=== PATIENT | female | born 1940 | race Caucasian/White ===

== ENCOUNTER 2023-04-12 11:38 | Outpatient (REF) | payer MEDICARE, SELFPAY ==
[2023-04-12 10:51] LABS: Basophils Percent Auto 0.6 % (0.2-2.0); Eosinophils Absolute Auto 0.2 10^3/uL (0.0-0.7); Eosinophils Percent Auto 2.1 % (0.9-7.0); Hematocrit 45.5 % (36.0-48.0); Hemoglobin 14.9 g/dL (12.0-16.0); Immature Granulocytes Abs Auto 0.02 10^3/uL (0.00-0.03); Immature Granulocytes Pct Auto 0.3 % (0.0-0.5); Lymphocytes Absolute Auto 1.9 10^3/uL (1.2-3.8); Lymphocytes Percent Auto 27.2 % (20.5-60.0); Mean Corpuscular HGB Conc 32.7 g/dL (29.9-35.2); Mean Corpuscular Hemoglobin 29.8 pg (26.7-34.0); Mean Platelet Volume 11.3 fL (9.5-13.5); Monocytes Absolute Auto 0.5 10^3/uL (0.3-0.8); Monocytes Percent Auto 6.6 % (1.7-12.0); Neutrophils Absolute Auto 4.4 10^3/uL (1.4-6.5); Neutrophils Percent Auto 63.2 % (43.0-75.0); Platelet Count 184 10^3/uL (150-450); Red Cell Distribution Width 14.1 % (11.0-15.0)
[2023-04-12 11:19] LABS: Alanine Aminotransferase 14 U/L (14-59); Albumin Globulin Ratio 1.1; Albumin Level 3.6 g/dL (3.4-5.0); Alkaline Phosphatase 76 U/L (46-116); Anion Gap 10.3; Aspartate Amino Transferase 14 U/L (15-37); BUN Creatinine Ratio 26.2; Bilirubin Total 0.4 mg/dL (0.2-1.0); Calcium 9.4 mg/dL (8.5-10.1); Carbon Dioxide 27.6 mmol/L (21.0-32.0); Chloride 106 mmol/L (98-107); Chol HDL Ratio 2.6; Cholesterol 217 mg/dL (<=200); Estimated GFR (African America 59 (>=60); Estimated GFR (Non-African Ame 49 (>=60); Globulin 3.3 g/dL; Glucose 96 mg/dL (74-106); HDL Cholesterol 82 mg/dL (40-60); Potassium 3.9 mmol/L (3.5-5.1); Sodium 140 mmol/L (136-145); Thyroid Stimulating Hormone 1.895 uIU/mL (0.358-3.740); Total Protein 6.9 g/dL (6.4-8.2); Triglycerides 81 mg/dL (<=150); VLDL CHOLESTEROL 16.2 mg/dL
[2023-04-12 11:25] LABS: Free T4 0.96 ng/dL (0.76-1.46)
== END 2023-04-12 11:39 | disposition home or self-care (01) ==
LOC: LAB 11:38
PROVIDERS: PCP Internal Medicine; Visit Provider Internal Medicine
DX: I10 Essential (primary) hypertension (principal); E78.5 Hyperlipidemia, unspecified; E03.9 Hypothyroidism, unspecified
CPT/HCPCS: 36415; 80053; 80061; 84439; 84443; 85025

== ENCOUNTER 2023-10-04 00:33 | Outpatient (REF) | payer MEDICARE, SELFPAY ==
[2023-10-04 08:37] LABS: Ammonia <10 umol/L (11-32)
[2023-10-04 08:41] LABS: Erythrocyte Sedimentation Rate 68 mm/hr (<=30)
[2023-10-04 11:07] LABS: Alanine Aminotransferase 21 U/L (14-59); Albumin Globulin Ratio 0.8; Albumin Level 2.9 g/dL (3.4-5.0); Alkaline Phosphatase 73 U/L (46-116); Aspartate Amino Transferase 14 U/L (15-37); Bilirubin Direct 0.1 mg/dL (0.0-0.2); Bilirubin Total 0.2 mg/dL (0.2-1.0); Globulin 3.6 g/dL; Thyroid Stimulating Hormone 1.389 uIU/mL (0.358-3.740); Total Protein 6.5 g/dL (6.4-8.2)
[2023-10-04 11:08] LABS: C Reactive Protein 1.58 mg/dL (<=0.50)
[2023-10-04 11:56] LABS: Free T4 0.92 ng/dL (0.76-1.46)
[2023-10-05 08:13] LABS: Homocyst(e)ine 15.9 umol/L (0.0-21.3)
[2023-10-05 09:12] LABS: Rapid Plasma Reagin, Quant Non Reactive titer (NonRea<1:1)
[2023-10-05 12:08] LABS: Lyme Total Antibody CIA Negative (Negative)
[2023-10-09 07:09] LABS: Methylmalonic Acid, Serum 259 nmol/L (0-378)
== END 2023-10-04 00:34 | disposition home or self-care (01) ==
LOC: LAB 00:33
PROVIDERS: PCP Internal Medicine; Visit Provider Psychiatry & Neurology Neurology
DX: R41.3 Other amnesia (principal); F03.90 Unspecified dementia, unspecified severity, without behavioral disturbance, psychotic disturbance, mood disturbance, and anxiety
CPT/HCPCS: 36415; 80076; 82140; 82607; 82746; 83090; 83921; 84439; 84443; 85652; 86140; 86592; 86618

== ENCOUNTER 2024-01-29 09:45 | Outpatient (REF) | payer MEDICARE, MEDICAID, SELFPAY ==
--- OUTSIDE RECORDS SUMMARY | 2024-01-29 10:00 | XMS_ITS | CCD ---
Author Organization [facility] Care Team Providers Care Administrative Director Name Role Phone PHYSICIAN, DEFAULT Unavailable Unavailable PHYSICIAN, DEFAULT Unavailable Unavailable KALI MAHARAJ Unavailable Unavailable PROVIDER, UNKNOWN Attending Unavailable PROVIDER, UNKNOWN Admitting Unavailable LULU FRIEDMAN Attending Unavailable NEL, DR MARTINEZ Primary Care Unavailable LULU FRIEDMAN Admitting Unavailable LULU FRIEDMAN Attending Unavailable NEL, DR MARTINEZ Primary Care Unavailable LULU FRIEDMAN Admitting Unavailable NADERER, DR ZACH Albarran Consulting Unavailable FRANCIACHKATT, DAVID GUTIÉRREZ Consulting Unavailable MICHELLE, DR BENNETT Consulting Unavailable LULU FRIEDMAN Consulting Unavailable COTY, YAQUELIN Consulting Unavailable NEL, DR MARTINEZ Primary Care Unavailable LULU FRIEDMAN Admitting Unavailable LULU FRIEDMAN Attending Unavailable SURAJ, DR SANTANA Attending Unavailable SURAJ, DR SANTANA Admitting Unavailable BEJ, YULIA Attending Unavailable BEJ, YULIA Admitting Unavailable NEL, DR MARTINEZ Primary Care Unavailable BEJ, YULIA Consulting Unavailable NEL, DR MARTINEZ Primary Care Unavailable HEMMER, DR PILY Rubalcava Attending Unavailable ZIEBER, DR OMAR Davison Consulting Unavailable HEMMER, DR PILY Rubalcava Admitting Unavailable HEMMER, DR PILY Rubalcava Consulting Unavailable NEL, DR MARTINEZ Primary Care Unavailable NEL, DR MARTINEZ Attending Unavailable NEL, DR MARTINEZ Admitting Unavailable Jhonatan Oakes Unavailable DO Edward Bernstein Emergency Provider [phone] DYLON Maharaj Primary Care Provider [phone] MD Dee Kenney Admit Provider MD Dee Kenney Attending Provider JUAN CARLOS Jenkins Other Provider UnavailJUAN CARLOS Silver Other Provider Unavailable MD Jhonatan Oakes Other Provider [phone] DEEPA Robins Other Provider MD Shelby Unger Other Provider MD Sergio Escudero Other Provider MD Abdulaziz Alvarez Attending Provider MD Abdulaziz Alvarez Attending Provider [phone] Sergio Escudero Unavailable [phone] Unavailable Unavailable Alvarez, Abdulaziz Attending Unavailable Maharaj II, Dr. Kali Murdock Primary Care Renee vailable Alvarez, Cintron Referring Unavailable Maharaj II, Dr. Kali Murdock Primary Care Renee vailable Alvarez, Cintron Attending Unavailable Alvarez, Cintron Referring Unavailable Alvarez, Abdulaziz Attending Unavailable Maharaj II, Dr. Kali Murdock Primary Care Renee vailable Alvarez, Cintron Attending Unavailable Alvarez, Abdulaziz Attending Unavailable Alvarez, Abdulaziz Attending Unavailable Raysa Robins Unavailable DYLON Maharaj Primary Care Provider MD Sergio Escudero Attending Provider DYLON Maharaj Primary Care Provider [phone] DEEPA Robins Attending Provider Raysa Robins Admitting Unavailable Raysa Robins Attending Unavailable Kali Maharaj Primary Care Unavailable Kali Maharaj Primary Care Unavailable Sergio Escudero Admitting UnavailSergio Estrada Attending UnavailKali Alvares MD Unavailable [phone] Kali Maharaj MD Primary Care Provider Neville DIRECTOR CONSUMER, Sarah Unavailable Unavailable Neville DIRECTOR CONSUMER, Sarah Unavailable YULIA MCCRAY Attending Unavailable KALI MAHARAJ Attending Unavailable ISMAEL AQUINO Attending Unavailable YULIA MCCRAY Attending Unavailable Allergies Allergy Classification Reported Allergen(s) Allergy Type Date of Onset Reaction(s) Facility (1 source) Chocolate Drug allergy (disorder) 02-21-2012 [facility] Rep[facility] (1 source) Chocolate Drug allergy (disorder) 02-01-2021 [facility] Repository (1 source) Chocolate Drug allergy (disorder) 05-28-2021 [facility] Repository Medications Current Medications Medication Drug Class(es) Dates Sig (Normalized) Sig (Original) amLODIPine 10 mg oral tablet (15 sources) Dihydropyridine Calcium Channel Kelly Start: 2 take 10 mg by mouth once daily Amlodipine Active 10 MG PO Daily August 14, 2022 12:00am aspirin 81 mg delayed release oral tablet (16 sources) Platelet Aggregation Inhibitor, Nonsteroidal Anti-inflammatory Drug Start: 1 Aspirin (Gregory Low Dose Aspirin) 81 mg tablet,delayed release (DR/EC) Active 81 MG PO Daily May 29, 2021 11:00pm atorvastatin 80 mg oral tablet (4 sources) HMG-CoA Reductase Inhibitor Start: 1 take 80 mg by mouth once daily at bedtime Atorvastatin Active 80 MG PO Daily at bedtime May 27, 2021 11:00pm Calcium Carbonate / Vitamin D (3 sources) Calcium Carbonate-Vitamin D (OYSTER-OPHELIA 500 + D PO) Take by mouth 2 (two) times a day. 0 Active Centrum Silver - (3 sources) Centrum Silver - as directed Orally Active hydrALAZINE hydrochloride 25 mg oral tablet (15 sources) Arteriolar Vasodilator Start: 2 take 1 tablet by mouth three times daily at mealtime hydrALAZINE (Apresoline) 25 MG tablet Indications: Essential hypertension (CMS/HCC) TAKE 1 TABLET BY MOUTH THREE TIMES A DAY WITH FOOD FOR 90 DAYS 270 tablet 1 03/26/2023 Active hydroCHLOROthiazide 12.5 mg / lisinopril 20 mg oral tablet (3 sources) Thiazide Diuretic, Angiotensin Converting Enzyme Inhibitor Start: 3 take 1 tablet by mouth in the morning lisinopril-hydroC HLOROthiazide 20-12.5 MG tablet Indications: Essential hypertension (CMS/HCC) Take 1 tablet by mouth in the morning and 1 tablet before bedtime. 200 tablet 3 02/25/2023 Active levothyroxine sodium 0.075 mg oral tablet (17 sources) l-Thyroxine Start: take 75 ug by mouth once daily Levothyroxine Active 75 MCG PO Daily at 629May 27, 2021 11:00pm take 1 tablet by francesca th once daily in the morning Levothyroxine Sodium 75 MCG 1 tablet in the morning on an empty stomach Orally Once a day Active Levothyroxine So dium Active lisinopril 20 mg oral tablet (14 sources) Angiotensin Converting Enzyme Inhibitor Start: 05-30-2021 take 20 mg by mouth twice daily Lisinopril Active 20 MG PO Twice daily 60 May 29, 2021 11:00pm Lisinopril Activ e Multiple Vitamins-Minerals (Centrum Silver 50+Women) tablet (3 sources) Start: 04-03-2011 take 1 tablet by mouth once daily Multiple Vitamins-Minerals (Centrum Silver 50+Women) tablet take 1 by Oral route every day Oral 0 04/03/2011 Active 24 hr nicotine 0.875 mg/hr transdermal system (4 sources) Cholinergic Nicotinic Agonist Start: 05-30-2021 Nicotine Active 1 EACH TRANSDERML Daily May 29, 2021 11:00pm pantoprazole 40 mg delayed release oral tablet (17 sources) Proton Pump Inhibitor Start: 07-17-2022 take 1 tablet by mouth before mealtime pantoprazole (ProtoNix) 40 MG EC tablet Indications: Gastroesophageal reflux disease, unspecified whether esophagitis present Take 1 tablet (40 mg) by mouth in the morning. Take before meals. 100 tablet 4 03/26/2023 Active Pantoprazole Sod ium Active PARoxetine hydrochloride 20 mg oral tablet (10 sources) Serotonin Reuptake Inhibitor Start: 08-12-2023 End: 08-11-2024 take 1 tablet by mouth at bedtime PARoxetine (Paxil) 20 MG tablet Indications: Major depressive disorder with single episode, in full remission (CMS/HCC) Take 1 tablet (20 mg) by mouth at bedtime. 90 tablet 3 08/12/2023 08/11/2024 Active Start: 08-10-2022 take 40 mg by mouth once daily Paroxetine Hcl Active 40 MG PO Daily August 09, 2022 11:00pm Completed/Discontinued Medications Medication Drug Class(es) Dates Sig (Normalized) Sig (Original) alendronic acid 70 mg oral tablet (20 sources) Bisphosphonate Start: 08-10-2022 End: 08-14-2022 take 70 mg by mouth once daily Alendronate Discontinued 70 MG PO Daily August 09, 2022 11:00pm August 14, 2022 1:29pm Start: 07-17-2022 take 70 mg by mouth every week Alendronate Active 70 MG PO Q7D August 14, 2022 1:08pm Alendronate Sodi um Active cephalexin 500 mg oral capsule (4 sources) Cephalosporin Antibacterial Start: 05-30-2021 End: 08-14-2022 take 500 mg by mouth twice daily Cephalexin Discontinued 500 MG PO Twice daily 03 09May 29, 2021 11:00pm August 14, 2022 1:29pm cloNIDine hydrochloride 0.3 mg oral tablet (8 sources) Central alpha-2 Adrenergic Agonist Start: 08-10-2022 End: 08-14-2022 take 0.3 mg by mouth once daily Clonidine Hcl Discontinued 0.3 MG PO Daily August 09, 2022 11:00pm August 14, 2022 1:29pm cloNIDine Active 24 hr dilTIAZem hydrochloride 360 mg extended release oral capsule (8 sources) Calcium Channel Kelly Start: 05-28-2021 End: 08-14-2022 take 1 capsule by mouth once daily, then take 1 capsule by mouth every twenty-four hours Diltiazem Hcl (Tiadylt Er) 360 mg capsule,extended release 24 hr Discontinued 360 MG PO Daily August 09, 2022 11:00pm August 14, 2022 1:29pm Multi Vitamin Daily Oral Tablet (6 sources) take 1 tablet by mouth once daily Multi Vitamin Daily Oral Tablet TAKE 1 TABLET DAILY. Quantity: 0 Refills: 0 Ordered: 21-Sep-2022 DO Active simvastatin 20 mg oral tablet (17 sources) HMG-CoA Reductase Inhibitor Start: 10-22-2022 take 1 tablet by mouth once daily Simvastatin 20 MG Oral Tablet TAKE 1 TABLET DAILY DIRECTED. Quantity: 90 Refills: 3 Ordered: 31-Oct-2022 Abdulaziz Alvarez MD Start : 22-Oct-2022 Active Start: 09-24-2022 take 1 tablet by francesca th at bedtime Simvastatin 40 MG Oral Tablet TAKE 1 TABLET AT BEDTIME. Quantity: 90 Refills: 3 Ordered: 24-Sep-2022 Abdulaziz Alvarez MD Start : 24-Sep-2022 Active Start: 08-10-2022 End: 08-14-2022 take 40 mg by mouth once daily Simvastatin Discontinue d 40 MG PO Daily August 09, 2022 11:00pm August 14, 2022 1:29pm take 1 tablet by francesca th every twenty-four hours Simvastatin 80 MG 1 tablet in the evening Orally Once a day Active Simvastatin Acti ve Problems Active Problems Problem Classification Problem Date Documented Date Episodic/Chronic Acute and unspecified renal failure (7 sources) Acute kidney failure, unspecified; Translations: [Injury of kidney] Onset: 02-09-2021 08-10-2022 Episodic Adjustment disorders (3 sources) Adjustment disorder with depressed mood; Translations: [Adjustment disorder with depressed mood] Onset: 04-08-2023 04-08-2023 Chronic Cardiac and circulatory congenital anomalies (3 sources) Congenital insufficiency of mitral valve; Translations: [Congenital mitral insufficiency] Onset: 07-11-2015 04-08-2023 Chronic Cardiac dysrhythmias (3 sources) Atrial fibrillation; Translations: [Unspecified atrial fibrillation] Onset: 01-13-2019 04-08-2023 Chronic Chronic obstructive pulmonary disease and bronchiectasis (3 sources) Chronic obstructive lung disease; Translations: [Chronic obstructive pulmonary disease, unspecified] Onset: 07-11-2015 04-08-2023 Chronic Congestive heart failure; nonhypertensive (3 sources) Diastolic heart failure; Translations: [Unspecified diastolic (congestive) heart failure] Onset: 07-11-2015 04-08-2023 Chronic Deficiency and other anemia (1 source) Other dietary vitamin B12 deficiency anemia; Translations: [OTH DIETARY VITAMIN B12 DEF ANEMIA] Onset: 08-29-2021 Episodic Delirium, dementia, and amnestic and other cognitive disorders (1 source) Unspecified dementia without behavioral disturbance; Translations: [UNS BERYL W/O BEHAVIORAL DIST] Onset: 08-29-2021 Chronic Disorders of lipid metabolism (13 sources) Hyperlipidemia, unspecified; Translations: [Hyperlipidemia] Onset: 07-11-2015 04-08-2023 Chronic Epilepsy; convulsions (4 sources) Epilepsy, unspecified, not intractable, without status epilepticus; Translations: [EPILEPSY UNS NOT INTRACT W/O SE] Onset: 2021 Chronic Esophageal disorders (4 sources) Gastro-esophageal reflux disease without esophagitis; Translations: [Gastroesophageal reflux disease] Onset: 07-11-2015 04-08-2023 Chronic Essential hypertension (15 sources) Hypertensive disorder; Translations: [Essential (primary) hypertension] Onset: 02-25-2023 05-30-2021 Chronic Heart valve disorders (3 sources) Tricuspid valve disorder; 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, unspecified] Onset: 07-11-2015 04-08-2023 Chronic Hypertension with complications and secondary hypertension (1 source) Hypertensive chronic kidney disease with stage 1 through stage 4 chronic kidney disease, or unspecified chronic kidney disease; Translations: [HTN CKD W/STAGE 1-4 CKD/UNS CKD] Onset: 02-09-2021 Chronic Immunizations and screening for infectious disease (1 source) Encounter for screening for infections with a predominantly sexual mode of transmission; Translations: [ENC SCREEN INFECTIONS SEXL TRANSMS] Onset: 08-29-2021 Episodic Late effects of cerebrovascular disease (6 sources) Ataxia as sequela of cerebrovascular accident; Translations: [Ataxia following cerebral infarction] Onset: 04-08-2023 04-08-2023 Chronic Menopausal disorders (7 sources) Other primary ovarian failure; Translations: [Decreased estrogen level] Onset: 10-20-2018 Chronic Mood disorders (3 sources) Major depression, single episode; Translations: [Major depressive disorder, single episode, unspecified] Onset: 01-14-2017 04-08-2023 Chronic Mycoses (4 sources) Onychomycosis due to dermatophyte ; Translations: [Tinea unguium] Onset: 01-12-2020 04-08-2023 Episodic Nutritional deficiencies (3 sources) Vitamin D deficiency; Translations: [Vitamin D deficiency, unspecified] Onset: 01-04-2016 04-08-2023 Chronic Nutritional deficiencies (1 source) Pyridoxine deficiency; Translations: [PYRIDOXINE DEFICIENCY] Onset: 08-29-2021 Episodic Occlusion or stenosis of precerebral arteries (20 sources) Bilateral stenosis of carotid arteries; Translations: [Occlusion and stenosis of bilateral carotid arteries] Onset: 04-08-2023 Chronic Osteoarthritis (6 sources) Bilateral osteoarthritis of knees; Translations: [Bilateral primary osteoarthritis of knee] Onset: 02-15-2021 04-08-2023 Chronic Other and ill-defined heart disease (3 sources) Heart disease; Translations: [Heart disease, unspecified] Onset: 07-11-2015 04-08-2023 Chronic Other circulatory disease (10 sources) Disorder of carotid artery; Translations: [Disorder of arteries and arterioles, unspecified] 08-11-2022 Chronic Other circulatory disease (2 sources) Disorder of arteries and arterioles, unspecified; Translations: [Unspecified disorders of arteries and arterioles] 08-10-2022 Chronic Other circulatory disease (6 sources) Carotid bruit; Translations: [Other symptoms involving cardiovascular system] Episodic Other connective tissue disease (1 source) Myalgia, unspecified site; Translations: [MYALGIA UNSPECIFIED SITE] Onset: 08-29-2021 Episodic Other connective tissue disease (1 source) Pain of toe of left foot; Translations: [Pain in left toe(s)] 11-12-2023 Episodic Other connective tissue disease (1 source) Pain of toe of right foot; Translations: [Pain in right toe(s)] 11-12-2023 Episodic Other diseases of veins and lymphatics (1 source) Vascular insufficiency; Translations: [Venous insufficiency (chronic) (peripheral)] 11-12-2023 Episodic Other hematologic conditions (3 sources) High troponin I level; Translations: [Other specified abnormalities of plasma proteins] 05-29-2021 Episodic Other hereditary and degenerative nervous system conditions (3 sources) Essential tremor; Translations: [Essential tremor] Onset: 11-27-2017 04-08-2023 Chronic Other nervous system disorders (1 source) Polyneuropathy, unspecified; Translations: [POLYNEUROPATHY UNSPECIFIED] Onset: 08-29-2021 Chronic Other nervous system disorders (1 source) Hereditary and idiopathic neuropathy, unspecified; Translations: [HEREDITARY IDIOPATH NEUROPATHY UNS] Onset: 08-29-2021 Chronic Other nervous system disorders (3 sources) Bilateral carpal tunnel syndrome; Translations: [Carpal tunnel syndrome, bilateral upper limbs] Onset: 01-01-2018 04-08-2023 Chronic Other nervous system disorders (3 sources) Chronic pain; Translations: [Other chronic pain] Onset: 10-28-2017 04-08-2023 Chronic Other nervous system disorders (3 sources) Polyneuropathy; Translations: [Polyneuropathy, unspecified] Onset: 02-25-2018 04-08-2023 Chronic Other nervous system disorders (3 sources) Disorder of the central nervous system; Translations: [Disorder of brain, unspecified] Onset: 04-08-2023 10-01-2023 Chronic Other nutritional; endocrine; and metabolic disorders (3 sources) Body mass index 30+ - obesity; Translations: [Obesity, unspecified] Onset: 01-12-2020 04-08-2023 Chronic Peripheral and visceral atherosclerosis (5 sources) Generalized atherosclerosis; Translations: [Peripheral vascular disease] Onset: 07-07-2015 04-08-2023 Chronic Residual codes; unclassified (1 source) Other amnesia; Translations: [OTHER AMNESIA] Onset: 08-29-2021 Episodic Residual codes; unclassified (4 sources) Altered mental status; Translations: [Altered mental status, unspecified] 05-28-2021 Episodic Residual codes; unclassified (2 sources) Tobacco use; Translations: [Tobacco use disorder] 08-10-2022 Episodic Residual codes; unclassified (6 sources) Body mass index 20-24 - normal; Translations: [Body Mass Index between 19-24, adult] Episodic Substance-related disorders (20 sources) Nicotine dependence, cigarettes, uncomplicated; Translations: [Smoker] Onset: 02-09-2021 05-28-2021 Chronic Comment on above: 1 pack per week; Syncope (12 sources) Syncope; Translations: [Syncope and collapse] 08-10-2022 Episodic Thyroid disorders (9 sources) Hypothyroidism; Translations: [Unspecified acquired hypothyroidism] Onset: 11-26-2016 04-08-2023 Chronic Unclassified (1 source) CHRN KIDNEY DISEASE STG 3 UNSP; Translations: [CHRN KIDNEY DISEASE STG 3 UNSP] Onset: 02-09-2021 Unclassified (1 source) CONTACT W/AND (SUSP) EXPOS COVID-19; Translations: [CONTACT W/AND (SUSP) EXPOS COVID-19] Onset: 02-09-2021 Unclassified (1 source) Occlusion and stenosis of bilateral carotid arteries; Translations: [Occlusion and stenosis of bilateral carotid arteries] Onset: 09-26-2023 Urinary tract infections (4 sources) Urinary tract infectious disease; Translations: [Urinary tract infection, site not specified] 05-28-2021 Episodic Past or Other Problems Problem Classification Problem Date Documented Date Episodic/Chronic Fluid and electrolyte disorders (4 sources) Dehydration; Translations: [DEHYDRATION] Onset: 02-01-2021 Episodic Malaise and fatigue (5 sources) Weakness; Translations: [WEAKNESS] Onset: 02-08-2021 Episodic Nonspecific chest pain (7 sources) Acute chest pain; Translations: [Chest pain, unspecified] Resolved: 09-21-2022 Episodic Other aftercare (1 source) senior living (current) use of aspirin; Translations: [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] Onset: 02-09-2021 Episodic Other aftercare (1 source) Other skilled nursing (current) drug therapy; Translations: [OTH INTERMEDIATE CURRENT DRUG THERAPY] Onset: 02-09-2021 Episodic Other connective tissue disease (4 sources) Repeated falls; Translations: [REPEATED FALLS] Onset: 02-08-2021 Episodic Other connective tissue disease (3 sources) Spasm of cervical paraspinous muscle; Translations: [Other muscle spasm] Onset: 04-08-2023 04-08-2023 Episodic Other connective tissue disease (3 sources) Spasm; Translations: [Cramp and spasm] Onset: 02-25-2018 04-08-2023 Episodic Other connective tissue disease (3 sources) Pain in limb; Translations: [Pain in unspecified limb] Onset: 01-12-2020 04-08-2023 Episodic Other diseases of veins and lymphatics (3 sources) Peripheral venous insufficiency; Translations: [Venous insufficiency (chronic) (peripheral)] Onset: 04-08-2023 04-08-2023 Episodic Other injuries and conditions due to external causes (1 source) History of falling; Translations: [HISTORY OF FALLING] Onset: 03-01-2021 Episodic Other injuries and conditions due to external causes (3 sources) At risk for falls ; Translations: [History of falling] Onset: 01-12-2020 04-08-2023 Episodic Other nervous system disorders (3 sources) Ataxia; Translations: [Ataxia, unspecified] Onset: 04-01-2018 04-08-2023 Episodic Other nervous system disorders (3 sources) Ataxic gait; Translations: [Ataxic gait] Onset: 02-15-2021 04-08-2023 Episodic Other nervous system disorders (3 sources) Impaired cognition; Translations: [Other symptoms and signs involving cognitive functions and awareness] Onset: 04-08-2023 04-08-2023 Episodic Other screening for suspected conditions (not mental disorders or infectious disease) (5 sources) Other specified abnormal findings of blood chemistry; Translations: [High troponin I level] Onset: 04-01-2018 09-18-2023 Episodic Residual codes; unclassified (7 sources) Tobacco user; Translations: [Tobacco use] Onset: 10-20-2018 08-11-2022 Episodic Residual codes; unclassified (3 sources) Amnesia; Translations: [Other amnesia] Onset: 04-08-2023 04-08-2023 Episodic Spondylosis; intervertebral disc disorders; other back problems (6 sources) Spasm of muscle of lower back; Translations: [Muscle spasm of back] Onset: 02-25-2018 04-08-2023 Episodic Results Test Name Value Interpretation Reference Range Facility US carotid doppler BIon 12- US carotid doppler BI [facility] [place] [address] Ultrasound Report Signed Patient: Carley Quintanilla MR#: [id number] : 1940 Acct:[id number] Age/Sex: 83 / F ADM Date: 09/26/23 Loc: [facility] Room: Type: [facility] Attending Dr: Raysa Robins [employer] Ordering Provider: Raysa Robins APRN Date of Service: 09/26/23 US/US carotid doppler BI: I65.23 Copies to: Raysa Robins APRN CAROTID DUPLEX INDICATION: Carotid surveillance study for known right asymptomatic carotid artery stenoses. PROCEDURE: Color-flow duplex scanning is used to interrogate the extracranial carotid arterial system, as well as both vertebral arteries. Both carotid bifurcations show mild to moderate heterogeneous plaque formation. The proximal right internal carotid artery shows a highest peak systolic velocity of 267 cm/s with an end-diastolic velocity of 39.9 cm/s . The mid internal carotid artery measures 208 cm/s peak systolic and 22.5 cm/s end diastolic. The distal segment measures 129 cm/s peak systolic with an end diastolic velocity of 19.9 cm/s . The velocities of the right common carotid artery are 84.5 cm/s peak systolic and 10.6 cm/s end-diastolic proximally and 92.7 cm/s peak systolic and 11.5 cm/s end diastolic distally. The peak systolic velocity ratio of the internal to the common carotid artery is 2.88. The right external carotid artery measures 326 cm/s peak systolic. The right vertebral artery is patent at 65.3 cm/s with antegrade flow. The proximal left internal carotid artery shows a highest peak systolic velocity of 85.7 cm/s with an end-diastolic velocity of 10.6 cm/s . The mid internal carotid artery measures 75.2 cm/s peak systolic and 12.5 cm/s end diastolic. The distal segment measures 77.1 cm/s peak systolic with an end diastolic velocity of 11.6 cm/s . The velocities of the left common carotid artery are 97.9 cm/s peak systolic and 13.9 cm/s end-diastolic proximally and 113 cm/s peak systolic and 10.5 cm/s end diastolic distally. The peak systolic velocity ratio of the internal to the common carotid artery is 0.76 . The left external carotid artery measures 136 cm/s peak systolic. The left vertebral artery is patent at 44.7 cm/s with antegrade flow. US/US carotid doppler BI IMPRESSION: MILD TO MODERATE PLAQUE FORMATION IS NOTED BILATERAL EXTRACRANIAL CAROTID ARTERIES. MODERATE STENOSIS OF 50-69% WAS FOUND IN THE RIGHT INTERNAL CAROTID ARTERY. The left carotid system is normal. Impression dictated by: Sergio Escudero MD09/26/2023 1:51 PM Dictation Location: [place] [address] Tech: Olimpia Corea Transcribed By: ADEEL 09/26/23 1351 Dictated By: Sergio Escudero MD 09/26/23 1350 Signed By: 09/26/23 1351 Normal [facility] US carotid doppler BIon 06- US carotid doppler BI [facility] [place] [address] Ultrasound Report Signed Patient: Carley Quintanilla MR#: [id number] : 1940 Acct:[id number] Age/Sex: 82 / F ADM Date: 03/20/23 Loc: [facility] Room: Type: [facility] Attending Dr: Sergio Escudero MD Ordering Provider: Sergio Escudero MD Date of Service: 03/20/23 US/US carotid doppler BI: I65.23 Copies to: Sergio Escudero MD CAROTID DUPLEX INDICATION: Known carotid occlusive disease PROCEDURE: Color-flow duplex scanning is used to interrogate the extracranial carotid arterial system, as well as both vertebral arteries. Both carotid bifurcations show mild to moderate heterogeneous plaque formation. The proximal right internal carotid artery shows a highest peak systolic velocity of 258 cm/s with an end-diastolic velocity of 29.5 cm/s . The mid internal carotid artery measures 234 cm/s peak systolic and 26 cm/s end diastolic. The distal segment measures 89.1 cm/s peak systolic with an end diastolic velocity of 16.5 cm/s . The velocities of the right common carotid artery are 77 cm/s peak systolic and 13 cm/s end-diastolic proximally and 77 cm/s peak systolic and 11.2 cm/s end diastolic distally. The peak systolic velocity ratio of the internal to the common carotid artery is 3.35. The right external carotid artery measures 284 cm/s peak systolic. The right vertebral artery is patent at 81.4 cm/s with antegrade flow. The proximal left internal carotid artery shows a highest peak systolic velocity of 113 cm/s with an end-diastolic velocity of 15.5 cm/s . The mid internal carotid artery measures 101 cm/s peak systolic and 20.3 cm/s end diastolic. The distal segment measures 92 cm/s peak systolic with an end diastolic velocity of 17.4 cm/s . The velocities of the left common carotid artery are 101 cm/s peak systolic and 13.6 cm/s end-diastolic proximally and 99.7 cm/s peak systolic and 15.5 cm/s end diastolic distally. The peak systolic velocity ratio of the internal to the common carotid artery is 1.12 . The left external carotid artery measures 189 cm/s peak systolic. The left vertebral artery is patent at 74.6 cm/s with antegrade flow. US/US carotid doppler BI IMPRESSION: Moderately severe calcified plaque formation is noted the right internal carotid artery origin. There is at least 50-69% stenosis. Complete interrogation of the area is impaired by the calcification and the stenosis may be more severe. Left internal carotid artery today shows less than 50% stenosis. Both vertebral arteries are patent with antegrade flow. Impression dictated by: Jhonatan Oakes M.D.03/22/2023 1:18 PM Dictation Location: [facility] Tech: Marcelle Minor Transcribed By: ADEEL 03/22/231317 Dictated By: Jhonatan Oakes MD 03/22/231316 Signed By: 03/22/231317 [facility] Office Visit (Cardiology)on 09-21-2022 Follow-up visit Diagnoses/Problems Assessed Essential hypertension, benign (401.1) (I10) Carotid artery disease (447.9) (I77.9) Hyperlipidemia (272.4) (E78.5) Hypothyroidism (244.9) (E03.9) Current smoker (305.1) (F17.200) 1 pack per week Syncope (780.2) (R55) Bruit of right carotid artery (785.9) (R09.89) Body mass index (BMI) of 24.0 to 24.9 in adult (V85.1) (Z68.24) Orders Carotid artery disease, Hyperlipidemia Renew: Aspirin EC 81 MG Oral Tablet Delayed Release; TAKE 1 TABLET DAILY SocHx: Current smoker You need to quit smoking.; Status:Complete - Retrospective Authorization; Done: [id number] You need to stop smoking. Though it is not easy, more than half of all adult smokers have quit. We encourage you to write down all the reasons you should quit smoking and set a quit date for yourself. Ask us how we can help. You may also call 6-107-UGCRNOW for free resources and assistance.; Status:Complete - Retrospective Authorization; Done: [id number] Tobacco Use Screening; Status:Complete; Done: [id number] Patient Instructions Please bring all medicines, vitamins, and herbal supplements with you when you come to the office. Prescriptions will not be filled unless you are compliant with your follow up appointments or have a follow up appointment scheduled as per instruction of your physician. Refills should be requested at the time of your visit. Follow up in 6 months Chief Complaint CARLEY QUINTANILLA is being seen for follow-up of a hospitalization for. 82-year-old white female who I saw in the hospital recently for syncope. It was believed that the syncope either caused by bradycardia or carotid disease. When she was seen by vascular surgery regarding the carotid stenosis that was felt to be above 70% they did not believe that it was the cause and did not want to intervene. The patient has had no recurrent syncope. 30-day event monitor which was completed last week and reviewed with the patient showed no arrhythmias. She continues to smoke something that I advised against given her carotid disease. She reports no orthopnea PND or palpitations. She came with her sister today. Patient is hypertensive and hyperlipidemic and hypothyroid on medical therapy. Assessment/recommendations : 1?recurrent syncope with no obvious cause. We believe bradycardia arrhythmias may have been a factor and therefore agent that control heart rate were eliminated. 30-day event monitor revealed no arrhythmias. No further cardiac actions needed. Echocardiogram August 2022 was normal 2?carotid disease confirmed by ultrasound asymptomatic. We will continue to advise patient to quit smoking, continue antiplatelet therapy, hypertension therapy and hyperlipidemia management. 3?hypertension, currently under control using amlodipine and hydralazine with lisinopril 4?hyperlipidemia on simvastatin. The dose has to be reduced down to 40 mg daily. 5?active tobacco abuse, encouraged the patient to quit smoking. Surgical History Problems History of Complete colonoscopy History of Foot surgery History of Tonsillectomy Past Medical History Problems History of Acute chest pain (786.50) (R07.9) Resolved Date: 21 Sep 2022 Current Meds Medication NameInstruction Alendronate Sodium 70 MG Oral TabletTAKE 1 TABLET WEEKLY 30 MINTUES PRIOR TO THE FIRST FOOD, BEVERAGE, OR MEDICINE OF THE DAY amLODIPine Besylate 10 MG Oral TabletTAKE 1 TABLET BY MOUTH EVERY DAY FOR 90 DAYS Aspirin EC 81 MG Oral Tablet Delayed ReleaseTAKE 1 TABLET DAILY. hydrALAZINE HCl - 25 MG Oral TabletTAKE 1 TABLET BY MOUTH THREE TIMES A DAY WITH FOOD FOR 90 DAYS Levothyroxine Sodium 75 MCG Oral TabletTAKE 1 TABLET EVERY DAY Lisinopril 20 MG Oral TabletTAKE 1 TABLET BY MOUTH TWICE A DAY Multi Vitamin Daily Oral TabletTAKE 1 TABLET DAILY. Pantoprazole Sodium 40 MG Oral Tablet Delayed ReleaseTAKE 1 TABLET BY MOUTH EVERY DAY Simvastatin 80 MG Oral TabletTAKE 1 TABLET Bedtime Allergies Medication No Known Drug Allergies Recorded By: Verito Larry; 09/21/2022 12:13:50 PM Social History Problems Consumes alcohol occasionally (V49.89) (Z78.9) Current smoker (305.1) (F17.200) 1 pack per week Daily caffeine consumption coffee 1 cup daily No illicit drug use Review of Systems Constitutional: not feeling tired. Cardiovascular: no intermittent leg claudication and as noted in HPI. Respiratory: no cough and no shortness of breath. Gastrointestinal: no change in bowel habits and no blood in stools. Integumentary: no skin rashes. Neurological: no seizures and no frequent falls. All other systems have been reviewed and are negative for complaint. Vitals Vital Signs Recorded: [id number] 12:15PM Heart Rate84, R Radial [id number], RUE Fofijdzwz96, RUE Height5 ft 6 in Qhgkhn942 lb BMI Elljwprafk17.05 kg/m2 BSA Calculated1.76 Tobacco Usea) Yes Patient encouraged to stop using tobacco productsYes PHQ-2 Patient Declined/Screening not indicatedYes (more content not included)... Normal [place] Tobacco Screening.on 022 Fall risk assessment a) No falls within the last year [facility] [employer] DO Work Phone: Tobacco use status CP a) Yes [facility] [employer] DO Work Phone: Tobacco Screening. Yes [facility] [employer] DO Work Phone: No Panel Informationon 09-14 [facility] [employer] DO Work Phone: Creatinine and Glomerular fi ltration rate.predicted panel (S/P/Bld)Ordered By: Dee Kenney on 08-12-2022 Creatinine [Mass/Vol] 1.16 mg/dL 0.44-1.03 [facility] Estimated glomerular filtrat ion rate (GFR) non- AmericanOrdered By: Dee Kenney on 08-12-2022 GFR/1.73 sq M.predicted among non-blacks MDRD (S/P/Bld) [Vol rate/Area] 45 mL/Min [facility] No Panel InformationOrdered By: Dee Kenney on 08-12-2022 Estimated GFR () 54 mL/Min [facility] Comment on above: GFR estimated refere nce range: According to KDOQI guidelines, <60 ml/min/1.73m2 is sufficient to diagnose a patient with chronic kidney disease. Pharmacy Creatinine Clearance (Chem 35.61 [facility] Serum or plasma anion gap de terminationOrdered By: Dee Kenney on 08-12-2022 Anion gap [Moles/Vol] 11.3 mmol/L 6.0-15.0 [facility] Serum or plasma calcium azalea urement (mass/volume)Ordered By: Dee Kenney on 08-12-2022 Calcium [Mass/Vol] 8.6 mg/dL 8.2-10.2 [facility] Serum or plasma chloride janet surement (moles/volume)Ordered By: Dee Kenney on 08-12-2022 Chloride [Moles/Vol] 110 mmol/L 95-114 [facility] Serum or plasma glucose azalea urement (mass/volume)Ordered By: Dee Kenney on 08-12-2022 Glucose [Mass/Vol] 95 mg/dL 70-100 [facility] Comment on above: ADA recommended refe rence rangeRandom Glucose Reference Range is dependent on time and content of last meal. Glucose of more than 200 mg/dL in a nonstressed, ambulatory subject supports the diagnosis of Diabetes Mellitus. Serum or plasma potassium me asurement (moles/volume)Ordered By: Dee Kenney on 08-12-2022 Potassium [Moles/Vol] 3.7 mmol/L 3.5-5.1 [facility] Serum or plasma sodium measu rement (moles/volume)Ordered By: Dee Kenney on 08-12-2022 Sodium [Moles/Vol] 141 mmol/L 136-146 [facility] Serum or plasma total carbon dioxide measurement (moles/volume)Ordered By: Dee Kenney on 08-12-2022 CO2 [Moles/Vol] 23.4 mmol/L 22.0-30.0 [facility] Serum or plasma urea nitroge n measurement (mass/volume)Ordered By: Dee Kenney on 08-12-2022 Urea nitrogen [Mass/Vol] 28 mg/dL 9-23 [facility] TSH DL <= 0.005 mIU/L QnOrde red By: Dee Kenney on 08-11-2022 TSH Qn 2.20 m[IU]/L 0.45-5.33 [facility] Basophils Auto (Bld) [#/Vol] Ordered By: Edward Bernstein on 08-10-2022 Basophils (Bld) [#/Vol] 0.1 10*3/uL 0.0-0.2 [facility] Basophils/100 WBC Auto (Bld) Ordered By: Edward Bernstein on 08-10-2022 Basophils/100 WBC (Bld) 0.5 % . [facility] Bilirubin Test strip Ql (U)O rdered By: Edward Bernstein on 08-10-2022 Bilirubin Ql (U) Negative Negative [facility] Body fluid albumin measureme nt (mass/volume)Ordered By: Edward Bernstein on 08-10-2022 Albumin (Body fld) [Mass/Vol] 3.3 g/dL 3.2-5.5 [facility] COVID CepheidOrdered By: Rima Bernstein on 08-10-2022 SARS-CoV-2 (COVID-19) Ab IA Ql Negative Negative [facility] Comment on above: This is a duplicate [employer] Xpert Xpress CoV-2/Flu/RSV Plus RNA by RT-PCR result to be used for statistical tracking purpose only. SARS-CoV-2 (COVID-19) RNA ALLISON+probe Ql (Unsp spec) [facility] Color Auto (U)Ordered By: Harjit Bernstein on 08-10-2022 Color (U) Yellow Yellow [facility] Eosinophils Auto (Bld) [#/Vo l]Ordered By: Edward Bernstein on 08-10-2022 Eosinophils (Bld) [#/Vol] 0.1 10*3/uL 0.0-0.45 [facility] Eosinophils/100 WBC Auto (Bl d)Ordered By: Edward Bernstein on 08-10-2022 Eosinophils/100 WBC (Bld) 0.7 % . [facility] Erythrocyte distribution wid th Auto (RBC) [Ratio]Ordered By: Edward Bernstein on 08-10-2022 Erythrocyte distribution width (RBC) [Ratio] 13.4 % 11.9-15.3 [facility] Globulin Calc (S) [Mass/Vol] Ordered By: Edward Bernstein on 08-10-2022 Globulin (S) [Mass/Vol] 2.7 g/dL [facility] Glucose Glucometer (BldC) [M ass/Vol]Ordered By: Edward Bernstein on 08-10-2022 Glucose [Mass/Vol] 101 mg/dL [facility] Comment on above: Random Glucose Refer ence Range is dependent on time and content of last meal. Glucose of more than 200 mg/dL in a nonstressed, ambulatory subject supports the diagnosis of Diabetes Mellitus. Hematocrit Auto (Bld) [Volum e fraction]Ordered By: Edward Bernstein on 08-10-2022 Hematocrit (Bld) [Volume fraction] 40.9 % 34.0-46.4 [facility] Hemoglobin [Mass/volume] in BloodOrdered By: Edward Bernstein on 08-10-2022 Hemoglobin (Bld) [Mass/Vol] 13.3 g/dL 11.8-15.4 [facility] Ketones Auto test strip (U) [Mass/Vol]Ordered By: Edward Bernstein on 08-10-2022 Ketones (U) [Mass/Vol] Trace Negative [facility] Laboratory - Chemistry and C hemistry - challengeOrdered By: Edward Bernstein on 08-10-2022 Magnesium [Mass/Vol] 2.2 mg/dL 1.6-2.6 [facility] Natriuretic peptide B (Bld) [Mass/Vol] 29.0 pg/mL 5-100 [facility] Laboratory - CoagulationOrde red By: Edward Bernstein on 08-10-2022 PT Coag (PPP) [Time] 11.0 s 9.0-12.9 [facility] Laboratory - Hematology and Cell countsOrdered By: Edward Bernstein on 08-10-2022 Nucleated RBC/100 WBC (Bld) [Ratio] 0.0 % 0-0.5 [facility] Leukocytes [#/volume] in Blo od by Automated countOrdered By: Edward Bernstein on 08-10-2022 WBC (Bld) [#/Vol] 9.9 10*3/uL 4.5-11.0 [facility] Lymphocytes Auto (Bld) [#/Vo l]Ordered By: Edward Bernstein on 08-10-2022 Lymphocytes (Bld) [#/Vol] 0.9 10*3/uL 1.00-4.8 [facility] Lymphocytes/100 WBC Auto (Bl d)Ordered By: Edward Bernstein on 08-10-2022 Lymphocytes/100 WBC (Bld) 9.5 % . [facility] MCH Auto (RBC) [Entitic mass ]Ordered By: Edward Bernstein on 08-10-2022 MCH (RBC) [Entitic mass] 30.6 pg 24.7-34.3 [facility] MCHC Auto (RBC) [Mass/Vol]Or dered By: Edward Bernstein on 08-10-2022 MCHC (RBC) [Mass/Vol] 32.6 g/dL 32.0-35.0 [facility] MCV Auto (RBC) [Entitic vol] Ordered By: Edward Bernstein on 08-10-2022 MCV (RBC) [Entitic vol] 94.0 fL 80-100 [facility] Monocytes Auto (Bld) [#/Vol] Ordered By: Edward Bernstein on 08-10-2022 Monocytes (Bld) [#/Vol] 0.6 10*3/uL 0.0-0.8 [facility] Monocytes/100 WBC Auto (Bld) Ordered By: Edward Bernstein on 08-10-2022 Monocytes/100 WBC (Bld) 5.7 % . [facility] Neutrophils Auto (Bld) [#/Vo l]Ordered By: Edward Bernstein on 08-10-2022 Neutrophils (Bld) [#/Vol] 8.3 10*3/uL 1.8-7.7 [facility] Neutrophils/100 WBC Auto (Bl d)Ordered By: Edward Bernstein on 08-10-2022 Neutrophils/100 WBC (Bld) 83.6 % . [facility] Nitrite Test strip Ql (U)Ord ered By: Edward Bernstein on 08-10-2022 Nitrite Ql (U) Negative Negative [facility] Platelet mean volume Auto (B ld) [Entitic vol]Ordered By: Edward Bernstein on 08-10-2022 Platelet mean volume (Bld) [Entitic vol] 10.2 fL 6.3-10.7 [facility] Platelet poor plasma interna tional normalized ratio (INR) by coagulation assay (relatOrdered By: Edward Bernstein on 08-10-2022 INR Coag (PPP) [Relative time] 1.0 {INR} [facility] Comment on above: INR Therapeutic Rang e A) Pre- and Peroperative OAT started two weeks before surgery. NOT HIP SURGERY: 1.5 - 2.5 HIP SURGERY: 2 - 3B) Primary and secondary prevention of venous THROMBOSIS: 2 - 3C) Active venous thrombosis, pulmonary embolismand prevention of recurrent venous thrombosis: 2 - 3D) Prevention of arterial thromboembolismincluding patients with mechanical heart valves: 3 - 4.5 Platelets Auto (Bld) [#/Vol] Ordered By: Edward Bernstein on 08-10-2022 Platelets (Bld) [#/Vol] 193 10*3/uL 150-450 [facility] Protein Auto test strip (U) [Mass/Vol]Ordered By: Edward Bernstein on 08-10-2022 Protein (U) [Mass/Vol] Negative Negative Fi [facility] Protein [Mass/volume] in Ser um or PlasmaOrdered By: Edward Bernstein on 08-10-2022 Protein [Mass/Vol] 6.0 g/dL 6.1-7.9 [facility] RBC Auto (Bld) [#/Vol]Ordere d By: Edward Bernstein on 08-10-2022 RBC (Bld) [#/Vol] 4.36 10*6/uL 3.60-5.00 [facility] Serum or plasma alanine jensen otransferase measurement without P-5'-P (enzymatic activiOrdered By: Edward Bernstein on 08-10-2022 ALT No additional P-5'-P [Catalytic activity/Vol] 12 U/L 10-60 [facility] Serum or plasma albumin/glob ulin mass ratioOrdered By: Edward Bernstein on 08-10-2022 Albumin/Globulin [Mass ratio] 1.2 {ratio} [facility] Serum or plasma alkaline sondra sphatase measurement (enzymatic activity/volume)Ordered By: Edward Bernstein on 08-10-2022 ALP [Catalytic activity/Vol] 52 U/L 32-92 [facility] Serum or plasma aspartate am inotransferase measurement (enzymatic activity/volume)Ordered By: Edward Bernstein on 08-10-2022 AST [Catalytic activity/Vol] 16 U/L 10- [facility] Serum or plasma total biliru bin measurement (mass/volume)Ordered By: Edward Bernstein on 08-10-2022 Bilirubin [Mass/Vol] 0.5 mg/dL 0.3-1.2 [facility] Specific gravity Auto test s trip (U) [Rel density]Ordered By: Edward Bernstein on 08-10-2022 Specific gravity (U) [Rel density] 1.014 1.001-1.03 0 [facility] Troponin I.cardiac [Mass/vol ume] in Serum or Plasma by High sensitivity methodOrdered By: Edward Bernstein on 08-10-2022 Troponin I.cardiac High sensitivity method [Mass/Vol] 9 pg/mL 0-15 [facility] Urine clarity by refractomet ry automatedOrdered By: Edward Bernstein on 08-10-2022 Clarity Refractometry automated (U) Clear Clear [facility] Urine glucose measurement by automated test strip (mass/volume)Ordered By: Edward Bernstein on 08-10-2022 Glucose Auto test strip (U) [Mass/Vol] Normal mg/dL Normal [facility] Urine hemoglobin detection b y automated test stripOrdered By: Edward Bernstein on 08-10-2022 Hemoglobin Auto test strip Ql (U) Negative Negative [facility] Urine leukocyte esterase det ection by automated test stripOrdered By: Edward Bernstein on 08-10-2022 Leukocyte esterase Auto test strip Ql (U) Negative Negative [facility] Urobilinogen Auto test strip (U) [Mass/Vol]Ordered By: Edward Bernstein on 08-10-2022 Urobilinogen (U) [Mass/Vol] Normal mg/dL Normal [facility] pH Auto test strip (U)Ordere d By: Edward Bernstein on 08-10-2022 pH (U) 5.5 [pH] 5.0-9.0 [facility] MRI Brain w/oon 09-20-2021 MRI Brain w/o CLINICAL HISTORY: COMPARISON: TECHNIQUE: Multiplanar Julian Lavern MRI of the brain was performed contrast. FINDINGS: There is prominence of sulci and ventricles consistent with mild global cerebral atrophy. 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 No acute hemorrhage, edema, mass, mass-effect, midline shift, or abnormal extra-axial fluid collection. Midline structures are within normal limits. The posterior fossa is within normal limits. The major intracranial vascular flow voids appear maintained. Cranial nerve VII/VIII complexes appear grossly unremarkable. No The visualized paranasal sinuses and bilateral mastoid are cells are clear. 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 There is no acute ischemia. Report reported and signed by MATTHEW TRIPLETT on 09/21/2021 1240 Normal [facility] [employer] LYME DISEASE, WESTERN BLOTon 08-26-2021 IgG P18 Ab. Absent Normal [facility] Comment on above: Performed By: #### L YMWB #### [facility] [address] [place] [address] Dr. Christian Lebron IgG P23 Ab. Absent [facility] Comment on above: Performed By: #### L YMWB #### [facility] [address] [place] [address] Dr. Christian Lebron IgG P28 Ab. Absent [facility] Comment on above: Performed By: #### L YMWB #### [facility] [address] [place] [address] Dr. Christian Lebron IgG P30 Ab. Absent [facility] Comment on above: Performed By: #### L YMWB #### [facility] [address] [address] [address] Christian Lebron IgG P39 Ab. Absent [facility] Comment on above: Performed By: #### L YMWB #### [facility] [address] [address] [address] Christian Lebron IgG P41 Ab. Absent [facility] Comment on above: Performed By: #### L YMWB #### [facility] [address] [place] [address] Dr. Christian Lebron IgG P45 Ab. Absent [facility] Comment on above: Performed By: #### L YMWB #### [facility] [address] [place] [address] Dr. Christian Lebron IgG P58 Ab. Absent [facility] Comment on above: Performed By: #### L YMWB #### [facility] [address] [place] [address] Dr. Christian Lebron IgG P66 Ab. Absent [facility] Comment on above: Performed By: #### L YMWB #### [facility] [address] [place] [address] Dr. Christian Lebron IgG P93 Ab. Absent [facility] Comment on above: Performed By: #### L YMWB #### [facility] [address] [place] [address] Dr. Christian Lebron IgM P23 Ab. Absent [facility] Comment on above: Performed By: #### L YMWB #### [facility] [address] [place] [address] Dr. Christian Lebron IgM P39 Ab. Absent [facility] Comment on above: Performed By: #### L YMWB #### [facility] [address] [place] [address] Dr. Christian Lebron IgM P41 Ab. Absent [facility] Comment on above: Performed By: #### L YMWB #### [facility] [address] [place] [address] Dr. Christian Lebron Lyme IgG WB Interp. Negative [facility] Comment on above: Result Comment: Posi tive: 5 of the following Borrelia-specific bands: 18,23,28,30,39,41,45,58, 66, and 93. Negative: No bands or banding patterns which do not meet positive criteria. Performed By: #### L YMWB #### [facility] [address] [place] [address] Dr. Christian Lebron Lyme IgM WB Interp. Negative [facility] Comment on above: Result Comment: Note : An equivocal or positive EIA result followed by a negative Line Blot result is considered NEGATIVE. An equivocal or positive EIA result followed by a positive Line Blot is considered POSITIVE by the CDC. . Positive: 2 of the following bands: 23,39 or 41 Negative: No bands or banding patterns which do not meet positive criteria. Criteria for positivity are those recommended by CDC/ASTPHLD. p23=Osp C, v11=[id number] . Note: Sera from individuals with the following may cross react in the Lyme Line Blot assays: other spirochetal diseases (periodontal disease, leptospirosis, relapsing fever, yaws, and pinta); connective autoimmune (Rheumatoid Arthritis and Systemic Lupus Erythematosus and also individuals with Antinuclear Antibody); other infections ([place] Spotted Fever; Roel-Briones Virus, and Cytomegalovirus). . Performed By: #### L YMWB #### [facility] [address] [address] [address] Christian Lebron METHYLMALONIC ACID (MMA)on 10-26-2020 Disclaimer: Comment Normal [facility] Comment on above: Result Comment: This test was developed and its performance characteristics determined by [employer]. It has not been cleared or approved by the Food and Drug Administration. Performed By: #### M MA2 #### [facility] [address] [address] [address] Christian Lebron Methylmalonic Acid, Serum 255 nmol/L Normal 0-378 [facility] Comment on above: Performed By: #### M MA2 #### [facility] [address] [address] [address] Christian Lebron HOMOCYSTEINEon 08-25-2021 Homocyst(e)ine, Plasma 29.7 umol/L Critically high 0.0-21. 3 [facility] Comment on above: Result Comment: Spec imen quantity insufficient for verification by repeat analysis. Performed By: #### H OMCY #### [facility] [address] [address] [address] Christian Lebron RPR QUANTon 08-24-2021 Rapid Plasma Reagin, Quant Non-Reactive Normal NonRea<1:1 [facility] Comment on above: Performed By: #### R PRQ #### [facility] [address] [address] [address] Christian Lebron AMMONIAon 2021 Ammonia (P) [Moles/Vol] 9 umol/L Critically low 10-30 [facility] [facility] Comment on above: Performed By: #### M MA2 #### [facility] [address] [place] [address] Dr. Christian Lebron CRPon 2021 CRP [Mass/Vol] mg/L Normal <=1.0 [facility] Comment on above: Performed By: #### M MA2 #### [facility] [address] [place] [address] Dr. Christian Lebron FOLATEon 2021 FOLATE 4.50 ng/mL Normal >=2.76 [facility] Comment on above: Performed By: #### F T4, VITB12, FOL #### [facility] [address] [place] [address] Dr. Christian Lebron FREE T4on 2021 Free T4 [Mass/Vol] 0.98 ng/dL Normal 0.78-2.19 [facility] Comment on above: Performed By: #### F T4, VITB12, FOL #### [facility] [address] [place] [address] Dr. Christian Lebron LIVER PROFILEon 2021 Albumin [Mass/Vol] 3.6 g/dL Normal 3.5-5.0 [facility] Comment on above: Performed By: #### M MA2 #### [facility] [address] [place] [address] Dr. Christian Lebron Albumin/Globulin [Mass ratio] 1.0 {ratio} Normal [facility] Comment on above: Performed By: #### Khadar MA2 #### [facility] [address] [place] [address] Dr. Christian Lebron ALP [Catalytic activity/Vol] 96 U/L Normal 38-126 [facility] Comment on above: Performed By: #### M MA2 #### [facility] [address] [place] [address] Dr. Christian Lebron ALT [Catalytic activity/Vol] 14 U/L Normal 9-52 [facility] Comment on above: Performed By: #### Khadar HORNE2 #### [facility] [address] [place] [address] Dr. Christian Lebron AST [Catalytic activity/Vol] 17 U/L Normal 14-36 [facility] Comment on above: Performed By: #### M MA2 #### [facility] [address] [address] [address] Christian Lebron BILI, CONJUGATED 0.1 mg/dL Normal 0.0-0.3 [facility] Comment on above: Performed By: #### M MA2 #### [facility] [address] [place] [address] Dr. Christian Lebron Bilirubin [Mass/Vol] 0.3 mg/dL Normal 0.2-1.3 [facility] Comment on above: Performed By: #### M MA2 #### [facility] [address] [place] [address] Dr. Christian Lebron Globulin (S) [Mass/Vol] 3.7 g/dL Normal [facility] Comment on above: Performed By: #### M MA2 #### [facility] [address] [place] [address] Dr. Christian Lebron Protein [Mass/Vol] 7.3 g/dL Normal 6.1-8.2 [facility] Comment on above: Performed By: #### M MA2 #### [facility] [address] [place] [address] Dr. Christian Lebron SED RATE [facility] 2020 SED RATE 31 mm/hr Critically high <=30 [facility] Comment on above: Performed By: #### H OMCY #### [facility] [address] [place] [address] Dr. Christian Lebron TSHon 2021 TSH 3.087 uIU/mL Normal 0.470-4.68 0 [facility] Comment on above: Performed By: #### M MA2 #### [facility] [address] [place] [address] Dr. Christian Lebron TSH RANGE SEE BELOW Normal [facility] Comment on above: Result Comment: <0.3 4 UIU/ml HYPERTHYROID 0.34-5.60 UIU/ml EUTHYROID >5.60 UIU/ml HYPOTHYROID Performed By: #### M MA2 #### [facility] [address] [place] [address] Dr. Christian Lebron VITAMIN B12on 2021 Cobalamin (Vitamin B12) [Mass/Vol] 521.0 pg/mL Normal 239.0-931. 0 [facility] Comment on above: Performed By: #### F T4, VITB12, FOL #### [facility] [address] [place] [address] Dr. Christian Lebron XR DEXA BONE DENSITYon 07-10 XR DEXA BONE DENSITY EXAMINATION: XR DEX A BONE DENSITY, 07/10/2021 2:10 PM EDT HISTORY: Primary ovarian failure COMPARISON: DEXA bone densitometry 10/31/2018 TECHNIQUE: Dual-energy X-ray absorptiometry (DEXA) bone density study performed for the axial skeleton. FINDINGS: SPINE ANALYSIS: Average bone mineral density is 1.014 g/cm2. T-score (standard deviation relative to young adult mean): -1.4 . -0.5% change since prior study. HIP ANALYSIS: Lowest bone mineral density is within the left femoral neck, 0.683 g/cm2. T-score (standard deviation relative to young adult mean): -2.6 . -4.6% change since prior study. IMPRESSION: [employer] Classification: Osteoporosis - High Fracture Risk Electronically authenticated by: OMAR SOTELO Date: 2021-07-10 14:50 Normal [facility] CBC AUTO DIFFon 02-02-2021 BASO # 0.1 103/ul Normal 0.0-0.1 [facility] Comment on above: Performed By: #### C BC #### [facility] [address] [place], [place] [id number] Lauri Pily Basophils/100 WBC (Bld) 0.4 % Normal 0.2-2.0 [facility] Comment on above: Performed By: #### C BC #### [facility] [address] [place] [address] Lauri Pily EO # 0.1 103/ul Normal 0.0-0.7 [facility] Comment on above: Performed By: #### C BC #### [facility] [address] [place], [place] [id number] Lauri Pily Eosinophils/100 WBC (Bld) 0.9 % Normal 0.9-7.0 [facility] Comment on above: Performed By: #### C BC #### [facility] [address] [place], [place] [id number] Lauri Pily Erythrocyte distribution width (RBC) [Ratio] 14.2 % Normal 11.0-15.0 [facility] Comment on above: Performed By: #### C BC #### [facility] [address] [place] [address] Lauri Pily Hematocrit (Bld) [Volume fraction] 40.8 % Normal 36.0-48.0 [facility] Comment on above: Performed By: #### C BC #### [facility] [address] [place] [address] Lauri Pily Hemoglobin (Bld) [Mass/Vol] 13.1 g/dL Normal 12.0-16.0 [facility] Comment on above: Performed By: #### C BC #### [facility] [address] [place] [address] Lauri Pily IG # 0.06 10e3/ul Critically high 0.00-0.03 [facility] Comment on above: Performed By: #### C BC #### [facility] [address] [place] [address] Lauri Pily IG % 0.5 % Normal 0.0-0.5 [facility] Comment on above: Performed By: #### C BC #### [facility] [address] [place] [address] Lauri Pily LYMPH # 2.4 103/ul Normal 1.2-3.8 [facility] Comment on above: Performed By: #### C BC #### [facility] [address] [place] [address] Lauri Pily Lymphocytes/100 WBC (Bld) 20.7 % Normal 20.5-60.0 [facility] Comment on above: Performed By: #### C BC #### [facility] [address] [place] [address] Lauri Nascimento MANUAL DIFF REQ NO Normal [facility] Comment on above: Performed By: #### C BC #### [facility] [address] [place], [place] [id number] Lauri Nascimento MCH (RBC) [Entitic mass] 28.5 pg Normal 26.7-34.0 [facility] Comment on above: Performed By: #### C BC #### [facility] [address] [place] [address] Lauri Nascimento MCHC (RBC) [Mass/Vol] 32.1 g/dL Normal 29.9-35.2 [facility] Comment on above: Performed By: #### C BC #### [facility] [address] [place] [address] Lauri Nascmiento MCV (RBC) [Entitic vol] 88.9 fL Normal 81.0-99.0 [facility] Comment on above: Performed By: #### C BC #### [facility] [address] [place] [address] Lauri Nascimento MONO # 0.9 103/ul Critically high 0.3-0.8 [facility] Comment on above: Performed By: #### C BC #### [facility] [address] [place], [place] [id number] Lauri Nascimento Monocytes/100 WBC (Bld) 7.7 % Normal 1.7-12.0 [facility] Comment on above: Performed By: #### C BC #### [facility] [address] [place] [address] Laurilaura Gavinen NEUT # 8.1 103/ul Critically high 1.4-6.5 [facility] Comment on above: Performed By: #### C BC #### [facility] [address] [place], [place] [id number] Lauri Pily Neutrophils/100 WBC (Bld) 69.8 % Normal 43.0-75.0 [facility] Comment on above: Performed By: #### C BC #### [facility] [address] [place], [place] [id number] Laurilaura Nascimento Platelet mean volume (Bld) [Entitic vol] 11.9 fL Normal 9.5-13.5 [facility] Comment on above: Performed By: #### C BC #### [facility] [address] [place] [address] Lauri Nascimento PLT 197 103/ul Normal 150-450 [facility] Comment on above: Performed By: #### C BC #### [facility] [address] [place] [address] Lauri Nascimento RBC 4.59 106/ul Normal 4.20-5.40 [facility] Comment on above: Performed By: #### C BC #### [facility] [address] [place] [address] Lauri Nascimento WBC 11.6 103/ul Critically high 4.0-11.0 [facility] Comment on above: Performed By: #### C BC #### [facility] [address] [place] [address] Lauri Nascimento PROF CHEM 8 (BAS METB)on Anion gap [Moles/Vol] 12.7 mmol/L Normal [facility] Comment on above: Performed By: #### H OMCY #### [facility] [address] [place] [address] Dr. Christian Lebron Calcium [Mass/Vol] 9.1 mg/dL Normal 8.4-10.2 [facility] Comment on above: Performed By: #### H OMCY #### [facility] [address] [place] [address] Dr. Christian Lebron Chloride [Moles/Vol] 110 mmol/L Critically high 98-107 [facility] Comment on above: Performed By: #### H OMCY #### [facility] [address] [place] [address] Dr. Christian Lebron CO2 [Moles/Vol] 21.7 mmol/L Critically low 22.0-30.0 [facility] Comment on above: Performed By: #### H OMCY #### [facility] [address] [place] [address] Dr. Christian Lebron Creatinine [Mass/Vol] 1.25 mg/dL Critically high 0.52-1.04 [facility] Comment on above: Performed By: #### H OMCY #### [facility] [address] [address] [address] Christian Lebron EGFR-AF DOMINICAN 50 mL/min/1.73m2 Critically low >=60 [facility] Comment on above: Performed By: #### H OMCY #### [facility] [address] [address] [address] Christian Lebron EGFR-NON AF DOMINICAN 41 mL/min/1.73m2 Critically low >=60 [facility] Comment on above: Performed By: #### H OMCY #### [facility] [address] [place] [address] Dr. Christian Lebron Glucose [Mass/Vol] 117 mg/dL Critically high 74-106 [facility] Comment on above: Performed By: #### H OMCY #### [facility] [address] [address] [address] Christian Lebron Potassium [Moles/Vol] 3.4 mmol/L Normal 3.4-5.0 [facility] Comment on above: Performed By: #### H OMCY #### [facility] [address] [place] [address] Dr. Christian Lebrno Sodium [Moles/Vol] 141 mmol/L Normal 137-145 [facility] Comment on above: Performed By: #### H OMCY #### [facility] [address] [address] [address] Christian Lebron Urea nitrogen [Mass/Vol] 28.0 mg/dL Critically high 7.0-17.0 [facility] Comment on above: Performed By: #### H OMCY #### [facility] [address] [place] [address] Dr. Christian Lebron Urea nitrogen/Creatinine [Mass ratio] 22.4 mg/mg Normal [facility] Comment on above: Performed By: #### H OMCY #### [facility] [address] [place] [address] Dr. Christian Lebron CBC AUTO DIFFon 02-01-2021 BASO # 0.1 103/ul Normal 0.0-0.1 [facility] Comment on above: Performed By: #### M MA2 #### [facility] [address] [place] [address] Dr. Christian Lebron Basophils/100 WBC (Bld) 0.5 % Normal 0.2-2.0 [facility] Comment on above: Performed By: #### Khadar MA2 #### [facility] [address] [address] [address] Christian Lebron EO # 0.1 103/ul Normal 0.0-0.7 [facility] Comment on above: Performed By: #### Khadar HORNE2 #### [facility] [address] [place] [address] Dr. Christian Lebron Eosinophils/100 WBC (Bld) 1.0 % Normal 0.9-7.0 [facility] Comment on above: Performed By: #### Khadar HORNE2 #### [facility] [address] [place] [address] Dr. Christian Lebron Erythrocyte distribution width (RBC) [Ratio] 13.9 % Normal 11.0-15.0 [facility] Comment on above: Performed By: #### Khadar HORNE2 #### [facility] [address] [place] [address] Dr. Christian Lebron Hematocrit (Bld) [Volume fraction] 38.7 % Normal 36.0-48.0 [facility] Comment on above: Performed By: #### Khadar HORNE2 #### [facility] [address] [place] [address] Dr. Christian Lebron Hemoglobin (Bld) [Mass/Vol] 12.3 g/dL Normal 12.0-16.0 [facility] Comment on above: Performed By: #### Khadar HORNE2 #### [facility] [address] [place] [address] Dr. Christian Lebron IG # 0.04 10e3/ul Critically high 0.00-0.03 [facility] Comment on above: Performed By: #### Khadar HORNE2 #### [facility] [address] [place] [address] Dr. Christian Lebron IG % 0.4 % Normal 0.0-0.5 [facility] Comment on above: Performed By: #### M MA2 #### [facility] [address] [place] [address] Dr. Christian Lebron LYMPH # 2.0 103/ul Normal 1.2-3.8 [facility] Comment on above: Performed By: #### Khadar HORNE2 #### [facility] [address] [place] [address] Dr. Christian Lebron Lymphocytes/100 WBC (Bld) 22.0 % Normal 20.5-60.0 [facility] Comment on above: Performed By: #### Khadar HORNE2 #### [facility] [address] [place] [address] Dr. Christian Lebron MANUAL DIFF REQ NO Normal [facility] Comment on above: Performed By: #### Khadar HORNE2 #### [facility] [address] [place] [address] Dr. Christian Lebron MCH (RBC) [Entitic mass] 29.0 pg Normal 26.7-34.0 [facility] Comment on above: Performed By: #### Khadar HORNE2 #### [facility] [address] [place] [address] Dr. Christian Lebron MCHC (RBC) [Mass/Vol] 31.8 g/dL Normal 29.9-35.2 [facility] Comment on above: Performed By: #### Khadar HORNE2 #### [facility] [address] [place] [address] Dr. Christian Lebron MCV (RBC) [Entitic vol] 91.3 fL Normal 81.0-99.0 [facility] Comment on above: Performed By: #### Khadar HORNE2 #### [facility] [address] [place] [address] Dr. Christian Lebron MONO # 0.8 103/ul Normal 0.3-0.8 [facility] Comment on above: Performed By: #### Khadar HORNE2 #### [facility] [address] [place] [address] Dr. Christian Lebron Monocytes/100 WBC (Bld) 8.7 % Normal 1.7-12.0 [facility] Comment on above: Performed By: #### Khadar MA2 #### [facility] [address] [place] [address] Dr. Christian Lebron NEUT # 6.2 103/ul Normal 1.4-6.5 [facility] Comment on above: Performed By: #### Khadar HORNE2 #### [facility] [address] [place] [address] Dr. Christian Lebron Neutrophils/100 WBC (Bld) 67.4 % Normal 43.0-75.0 [facility] Comment on above: Performed By: #### Khadar HORNE2 #### [facility] [address] [place] [address] Dr. Christian Lebron Platelet mean volume (Bld) [Entitic vol] 11.9 fL Normal 9.5-13.5 [facility] Comment on above: Performed By: #### Khadar HORNE2 #### [facility] [address] [place] [address] Dr. Christian Lebron PLT 175 103/ul Normal 150-450 [facility] Comment on above: Performed By: #### Khadar MA2 #### [facility] [address] [place] [address] Dr. Chirstian Lebron RBC 4.24 106/ul Normal 4.20-5.40 [facility] Comment on above: Performed By: #### Khadar HORNE2 #### [facility] [address] [place] [address] Dr. Christian Lebron WBC 9.1 103/ul Normal 4.0-11.0 [facility] Comment on above: Performed By: #### Khadar HORNE2 #### [facility] [address] [place] [address] HEAD WO CONon 02-01-2021 CT HEAD WO CON EXAM: CT HEAD WO CON COMPARISON: None available. CLINICAL INFORMATION: Asthenia, generalized weakness and recurrent falls. TECHNIQUE: Axial noncontrast images were obtained through the brain and reconstructed using brain and bone algorithms with sagittal and coronal reconstructions. Dose reduction techniques were achieved by using automated exposure control and/or adjustment of mA and/or kV according to patient size and/or use of iterative reconstruction technique. FINDINGS: BRAIN: No intracranial hemorrhage. No extra-axial collection. No mass or mass effect. No midline shift. Moderate age-appropriate brain atrophy. Large amount of probable age-related chronic microvascular ischemic change in the supratentorial white matter. Small left basal ganglia remote lacunar infarcts. CSF: Ventricles and sulci appropriate for age. Basal cisterns are patent. ORBITS: Bilateral cataract surgery. SINUSES AND MASTOID AIR CELLS: Paranasal sinuses are clear. Mastoid air cells are clear. BONES: No acute osseous abnormality. SOFT TISSUES: Unremarkable. IMPRESSION: 1. Moderate age-appropriate brain atrophy. 2. Large amount of probable age-related chronic microvascular ischemic change in the supratentorial white matter. 3. Small left basal ganglia remote lacunar infarcts. 4. No CT evidence of acute intracranial abnormality. No acute intracranial hemorrhage. Electronically authenticated by: YAQUELIN ANSARI Date: 2021-01-31 22:45 Normal [facility] ECHO LIMITED STUDYon 021 ECHO LIMITED STUDY Patient: CARLEY QUINTANILLA Exam Date: 02/01/2021 : 1940 Gender:F Ordering : DR. LULU FRIEDMAN . Admission #: [id number] Family : DR KALI MAHARAJ M.D. Order #: [id number] CLICK HERE TO VIEW EXAM ECHOCARDIOGRAM REPORT PROCEDURE: CARDIO PULMONARY ECHO LIMITED STUDY INDICATIONS: Weakness, HTN, Smoker COMPARISON: None. DESCRIPTION: Limited ECHOCARDIOGRAM Real-time transthoracic echocardiography with 2D and M-mode performed. QUALITY: Technical quality was good. LEFT VENTRICLE: Normal chamber size. Mild concentric left ventricular hypertrophy. LV EF: Normal left ventricular ejection fraction, (>55%). DIASTOLIC: ATRIAL SEPTUM: LEFT ATRIUM: Moderate dilatation. RIGHT ATRIUM: Mild dilatation. RIGHT VENTRICLE: Normal chamber size. Normal systolic function. TRICUSPID VALVE: Normal mobility and thickness. MITRAL VALVE: Mildly thickened with normal mobility. Mild mitral annular calcification. AORTIC VALVE: Normal trileaflet appearance. Mildly calcified aortic valve. Normal leaflet mobility. AORTIC ROOT: Normal diameter and appearance. PULMONIC VALVE: Not well visualized. PERICARDIUM: No evidence of pericardial effusion. IVC: Collapes with inspirations. IVC normal in size. PLEURA: CONCLUSION: 1. Normal ventricular systolic function. 2. The aortic valve is mildly calcified but appear to open well. 3. No pericardial effusion. Adult Echocardiography Procedure Report Left Ventricle LVEDD (3.7 - 5.6 cm): 4.61 cm LVESD (2.2 - 4.0 cm): 2.62 cm LVIVS thickness (0.6 - 1.2 cm): 1.04 cm LVPW thickness (0.5 - 1.0 cm): 1.05 cm LVOT Area (cm2): 3.14 cm2 LVOT Diameter 2.00 cm Left Ventricular Ejection Fraction: 74.30 % Left Atrium LA Volume Index (2D A2C): 21.70 ml/m2 Left Atrium Systolic Dimension: 2.90 cm Left Atrium Systolic Area(A2C): 17.60 cm2 Left Atrium Systolic Area(A4C): 15.60 cm2 Left Atrium Systolic Volume(A2C): 13925 mm3 Left Atrium Systolic Volume(A4C): 42489 mm3 Mitral Valve Right Ventricle Aorta AO Root Diam: 3.10 cm Aortic Valve Tricuspid Valve Pulmonic Valve Right Atrium Dictated by: Max Carbone M.D. on 02/01/2021 at 13:45 Approved by: Max Carbone M.D. on 02/01/2021 at 13:51 Normal [facility] ER URINE PROFILEon 1 Bilirubin Ql (U) Negative Normal NEGATIVE [facility] Comment on above: Performed By: #### E RUR #### [facility] [address] [place] [address] Lauri Nascimento Clarity (U) CLEAR Normal CLEAR [facility] Comment on above: Performed By: #### E RUR #### [facility] [address] [place] [address] Lauri Nascimento Color (U) LT. YELLOW Normal YELLOW [facility] Comment on above: Performed By: #### E RUR #### [facility] [address] [place] [address] Lauri Nascimento ERUAHD A micrscopic examina tion will be performed if indicated. Normal [facility] Comment on above: Performed By: #### E RUR #### [facility] [address] [place] [address] Lauri Pily Glucose Ql (U) Negative Normal NEGATIVE [facility] Comment on above: Performed By: #### E RUR #### [facility] [address] [place], [place] [id number] Lauri Pily Hemoglobin Ql (U) Negative Normal NEGATIVE [facility] Comment on above: Performed By: #### E RUR #### [facility] [address] [place] [address] Lauri Pily Ketones Ql (U) TRACE Abnormal NEGATIVE [facility] Comment on above: Performed By: #### E RUR #### [facility] [address] [place] [address] Lauri Pily LEUKOCYTES Negative Normal NEGATIVE [facility] Comment on above: Performed By: #### E RUR #### [facility] [address] [place] [address] Lauri Pily Nitrite Ql (U) Negative Normal NEGATIVE [facility] Comment on above: Performed By: #### E RUR #### [facility] [address] [place] [address] Lauri Pily pH (U) 5.0 [pH] Normal 5-9 [facility] Comment on above: Performed By: #### E RUR #### [facility] [address] [place] [address] Lauri Pily SPEC GRAVITY 1.025 Normal 1.005-<=1. 025 [facility] Comment on above: Performed By: #### E RUR #### [facility] [address] [place] [address] Lauri Pily UA PROTEIN TRACE Normal NEGATIVE/ TRACE [facility] Comment on above: Performed By: #### E RUR #### [facility] [address] [place], [place] [id number] Lauri Pily UR MICRO IND NOT INDICATED Normal [facility] Comment on above: Performed By: #### E RUR #### [facility] [address] [place] [address] Lauri Pily Urobilinogen Qn (U) 0.2 {Irineo'U}/dL Normal 0.2 - 1. 0 [facility] Comment on above: Performed By: #### E RUR #### [facility] [address] [place] [address] Lauri Nascimento PROF CHEM 8 (BAS METB)on Anion gap [Moles/Vol] 15.6 mmol/L Normal [facility] Comment on above: Performed By: #### M MA2 #### [facility] [address] [place] [address] Dr. Christian Lebron Calcium [Mass/Vol] 8.8 mg/dL Normal 8.4-10.2 [facility] Comment on above: Performed By: #### M MA2 #### [facility] [address] [place] [address] Dr. Christian Lebron Chloride [Moles/Vol] 109 mmol/L Critically high 98-107 [facility] Comment on above: Performed By: #### M MA2 #### [facility] [address] [place] [address] Dr. Christian Lebron CO2 [Moles/Vol] 23.1 mmol/L Normal 22.0-30.0 [facility] Comment on above: Performed By: #### M MA2 #### [facility] [address] [place] [address] Dr. Christian Lebron Creatinine [Mass/Vol] 1.49 mg/dL Critically high 0.52-1.04 [facility] Comment on above: Performed By: #### M MA2 #### [facility] [address] [place] [address] Dr. Christian Lebron EGFR-AF DOMINICAN 41 mL/min/1.73m2 Critically low >=60 [facility] Comment on above: Performed By: #### M MA2 #### [facility] [address] [place] [address] Dr. Christian Lebron EGFR-NON AF DOMINICAN 34 mL/min/1.73m2 Critically low >=60 [facility] Comment on above: Performed By: #### M MA2 #### [facility] [address] [place] [address] Dr. Christian Lebron Glucose [Mass/Vol] 114 mg/dL Critically high 74-106 [facility] Comment on above: Performed By: #### M MA2 #### [facility] [address] [place] [address] Dr. Christian Lebron Potassium [Moles/Vol] 3.7 mmol/L Normal 3.4-5.0 [facility] Comment on above: Performed By: #### M MA2 #### [facility] [address] [place] [address] Dr. Christian Lebron Sodium [Moles/Vol] 144 mmol/L Normal 137-145 [facility] Comment on above: Performed By: #### M MA2 #### [facility] [address] [place] [address] Dr. Christian Lebron Urea nitrogen [Mass/Vol] 28.0 mg/dL Critically high 7.0-17.0 [facility] Comment on above: Performed By: #### Khadar MA2 #### [facility] [address] [place] [address] Dr. Christian Lebron Urea nitrogen/Creatinine [Mass ratio] 18.8 mg/mg Normal [facility] Comment on above: Performed By: #### M MA2 #### [facility] [address] [place] [address] Dr. Christian Lebron Rapid Covid-19 PCR (CVDRPD)o n 02-01-2021 SARS-CoV-2 (COVID-19) RNA ALLISON+probe Ql (Unsp spec) Not detected Normal NOT DETECTED [facility] Comment on above: Result Comment: This test is not yet approved or cleared by the [place] Food and Drug Administration (FDA). This test was developed by [employer], [place], [place]. The performance characteristics of this test were validated by The [facility]. The results are not intended to be used as the sole means for clinical diagnosis or patient management decisions. The [facility] is authorized under Clinical Laboratory Improvement Amendments (CLIA) to perform high- complexity testing. When diagnostic testing is negative, the possibility of a false negative should be considered in the context of a patient's recent exposures and the presence of clinical signs and symptoms consistent with SARS-CoV-2. Performed By: #### H OMCY #### [facility] [address] [place], [place] [address] Dr. Christian Lebron TROPONIN, HIGH SENSITIVITYon 02-01-2021 HSTROP 15.4 pg/mL Normal 4.0-35.5 [facility] Comment on above: Result Comment: CUT- OFF POINTS HAVE BEEN ESTABLISHED BASED ON THE FOURTH UNIVERSAL DEFINITIONS OF MYOCARDIAL INFARCTION. THE UPPER REFERENCE LIMIT (URL) OF TROPONIN, DEFINED THE 99TH PERCENTILE OF cTnI DISTRIBUTION IN A REFERENCE POPULATION, HAS BEEN CONFIRMED THE DECISION THRESHOLD FOR [place] DIAGNOSIS. Performed By: #### H STROPN #### [facility] [address] [id number] Lauri Nascimento XR CHEST 2 Von 02-01-2021 XR CHEST 2 V EXAM: XR CHEST 2 V COMPARISON: None available. CLINICAL INDICATION: Asthenia. FINDINGS: The cardiomediastinal silhouette is within normal limits. No focal consolidation. No pleural effusion. No pneumothorax. Emphysematous changes and calcified sequela of remote granulomatous disease. No evidence of acute osseous abnormality. IMPRESSION: 1. No radiographic evidence of acute abnormality. 2. Emphysematous changes and calcified sequela of remote granulomatous disease. Electronically authenticated by: YAQUELIN ANSARI Date: 2021-01-31 22:40 Normal [facility] XR PELVIS 1_2 VIEWSon 2020 XR PELVIS 1_2 VIEWS IMAGES REVIEWED: XR PELVIS 1_2 VIEWS COMPARISON: None available. CLINICAL INDICATION: Ischemia, generalized weakness with recurrent falls. FINDINGS/IMPRESSION: 1. No radiographic evidence of acute osseous abnormality of the pelvis. 2. Osteopenia. 3. Severe degenerative changes of the lower lumbar spine and mild degenerative changes of bilateral hips. Electronically authenticated by: YAQUELIN ANSARI Date: 2021-01-31 22:41 Normal [facility] BNPon 01-31-2021 Natriuretic peptide B (Bld) [Mass/Vol] 1162.0 pg/mL Normal <=1,800.0 [facility] Comment on above: Performed By: #### H OMCY #### [facility] [address] [place], [place] [address] Dr. Christian Lebron CBC AUTO DIFFon 04-27-2021 BASO # 0.0 103/ul Normal 0.0-0.1 [facility] Comment on above: Performed By: #### E RUR #### [facility] [address] [place], [place] [id number] Lauri Pily Basophils/100 WBC (Bld) 0.4 % Normal 0.2-2.0 [facility] Comment on above: Performed By: #### E RUR #### [facility] [address] [place], [place] [id number] Lauri Pily EO # 0.1 103/ul Normal 0.0-0.7 [facility] Comment on above: Performed By: #### E RUR #### [facility] [address] [place], [place] [id number] Lauri Pily Eosinophils/100 WBC (Bld) 0.9 % Normal 0.9-7.0 [facility] Comment on above: Performed By: #### E RUR #### [facility] [address] [place], [place] [id number] Lauri Pily Erythrocyte distribution width (RBC) [Ratio] 13.8 % Normal 11.0-15.0 [facility] Comment on above: Performed By: #### E RUR #### [facility] [address] [place], [place] [id number] Lauri Pily Hematocrit (Bld) [Volume fraction] 42.8 % Normal 36.0-48.0 [facility] Comment on above: Performed By: #### E RUR #### [facility] [address] [place], [place] [id number] Lauri Pily Hemoglobin (Bld) [Mass/Vol] 13.8 g/dL Normal 12.0-16.0 [facility] Comment on above: Performed By: #### E RUR #### [facility] [address] [place], [place] [id number] Lauri Pily IG # 0.04 10e3/ul Critically high 0.00-0.03 [facility] Comment on above: Performed By: #### E RUR #### [facility] [address] [place], [place] [id number] Lauri Pily IG % 0.4 % Normal 0.0-0.5 [facility] Comment on above: Performed By: #### E RUR #### [facility] [address] [place], [place] [id number] Lauri Nascimento LYMPH # 2.3 103/ul Normal 1.2-3.8 [facility] Comment on above: Performed By: #### E RUR #### [facility] [address] [place], [place] [id number] Lauri Nascimento Lymphocytes/100 WBC (Bld) 21.7 % Normal 20.5-60.0 [facility] Comment on above: Performed By: #### E RUR #### [facility] [address] [place], [place] [id number] Lauri Nascimento MANUAL DIFF REQ NO Normal [facility] Comment on above: Performed By: #### E RUR #### [facility] [address] [place], [place] [id number] Lauri Nascimento MCH (RBC) [Entitic mass] 28.9 pg Normal 26.7-34.0 [facility] Comment on above: Performed By: #### E RUR #### [facility] [address] [place], [place] [id number] Lauri Nascimento MCHC (RBC) [Mass/Vol] 32.2 g/dL Normal 29.9-35.2 [facility] Comment on above: Performed By: #### E RUR #### [facility] [address] [place], [place] [id number] Lauri Nascimento MCV (RBC) [Entitic vol] 89.7 fL Normal 81.0-99.0 [facility] Comment on above: Performed By: #### E RUR #### [facility] [address] [place], [place] [id number] Lauri Pily MONO # 0.9 103/ul Critically high 0.3-0.8 [facility] Comment on above: Performed By: #### E RUR #### [facility] [address] [place], [place] [id number] Lauri Gavinen Monocytes/100 WBC (Bld) 8.0 % Normal 1.7-12.0 [facility] Comment on above: Performed By: #### E RUR #### [facility] [address] [id number] Lauri Nascimento NEUT # 7.4 103/ul Critically high 1.4-6.5 [facility] Comment on above: Performed By: #### E RUR #### [facility] [address] [id number] Lauri Nascimento Neutrophils/100 WBC (Bld) 68.6 % Normal 43.0-75.0 [facility] Comment on above: Performed By: #### E RUR #### [facility] [address] [place], [place] [id number] Lauri Nascimento Platelet mean volume (Bld) [Entitic vol] 11.8 fL Normal 9.5-13.5 [facility] Comment on above: Performed By: #### E RUR #### [facility] [address] [place], [place] [id number] Lauri Nascimento PLT 190 103/ul Normal 150-450 [facility] Comment on above: Performed By: #### E RUR #### [facility] [address] [place], [place] [id number] Lauri Nascimento RBC 4.77 106/ul Normal 4.20-5.40 [facility] Comment on above: Performed By: #### E RUR #### [facility] [address] [place], [place] [id number] Lauri Nascimento WBC 10.8 103/ul Normal 4.0-11.0 [facility] Comment on above: Performed By: #### E RUR #### [facility] [address] [place], [place] [id number] Lauri Nascimento PROF 14(COMP METB)on 021 Albumin [Mass/Vol] 3.6 g/dL Normal 3.5-5.0 [facility] Comment on above: Performed By: #### H OMCY #### [facility] [address] [place], [place] [id number] Dr. Christian Lebron Albumin/Globulin [Mass ratio] 1.0 {ratio} Normal [facility] Comment on above: Performed By: #### H OMCY #### [facility] [address] [place] [address] [address] Christian Lebron ALP [Catalytic activity/Vol] 74 U/L Normal 38-126 [facility] Comment on above: Performed By: #### H OMCY #### [facility] [address] [place] [address] Dr. Christian Lebron ALT [Catalytic activity/Vol] 19 U/L Normal 9-52 [facility] Comment on above: Performed By: #### H OMCY #### [facility] [address] [place] [address] Dr. Christian Lebron Anion gap [Moles/Vol] 11.7 mmol/L Normal Th e [facility] Comment on above: Performed By: #### H OMCY #### [facility] [address] [place] [address] Dr. Christian Lebron AST [Catalytic activity/Vol] 16 U/L Normal 14-36 [facility] Comment on above: Performed By: #### H OMCY #### [facility] [address] [place] [address] Dr. Christian Lebron Bilirubin [Mass/Vol] 0.4 mg/dL Normal 0.2-1.3 [facility] Comment on above: Performed By: #### H OMCY #### [facility] [address] [place] [address] Dr. Christian Lebron Calcium [Mass/Vol] 9.3 mg/dL Normal 8.4-10.2 [facility] Comment on above: Performed By: #### H OMCY #### [facility] [address] [place] [address] Dr. Christian Lebron Chloride [Moles/Vol] 107 mmol/L Normal 98-107 [facility] Comment on above: Performed By: #### H OMCY #### [facility] [address] [place] [address] Dr. Christian Lebron CO2 [Moles/Vol] 26.0 mmol/L Normal 22.0-30.0 [facility] Comment on above: Performed By: #### H OMCY #### [facility] [address] [address] [address] Christian Lebron Creatinine [Mass/Vol] 1.63 mg/dL Critically high 0.52-1.04 [facility] Comment on above: Performed By: #### H OMCY #### [facility] [address] [address] [address] Christian Lebron EGFR-AF DOMINICAN 37 mL/min/1.73m2 Critically low >=60 [facility] Comment on above: Performed By: #### H OMCY #### [facility] [address] [address] [address] Christian Lebron EGFR-NON AF DOMINICAN 30 mL/min/1.73m2 Critically low >=60 [facility] Comment on above: Performed By: #### H OMCY #### [facility] [address] [address] [address] Christian Lebron Globulin (S) [Mass/Vol] 3.7 g/dL Normal [facility] Comment on above: Performed By: #### H OMCY #### [facility] [address] [address] [address] Christian Lebron Glucose [Mass/Vol] 96 mg/dL Normal 74-106 [facility] Comment on above: Performed By: #### H OMCY #### [facility] [address] [address] [address] Christian Lebron Potassium [Moles/Vol] 3.7 mmol/L Normal 3.4-5.0 [facility] Comment on above: Performed By: #### H OMCY #### [facility] [address] [address] [address] Christian Lebron Protein [Mass/Vol] 7.3 g/dL Normal 6.1-8.2 [facility] Comment on above: Performed By: #### H OMCY #### [facility] [address] [address] [address] Christian Lebron Sodium [Moles/Vol] 141 mmol/L Normal 137-145 [facility] Comment on above: Performed By: #### H OMCY #### [facility] [address] [place] [address] Dr. Christian Lebron Urea nitrogen [Mass/Vol] 31.0 mg/dL Critically high 7.0-17.0 [facility] Comment on above: Performed By: #### H OMCY #### [facility] [address] [place] [address] Dr. Christian Lebron Urea nitrogen/Creatinine [Mass ratio] 19.0 mg/mg Normal [facility] Comment on above: Performed By: #### H OMCY #### [facility] [address] [place] [address] Dr. Christian Lebron PROTIMEon 01-31-2021 INR Coag (PPP) [Relative time] {INR} Normal [facility] Comment on above: Performed By: #### H OMCY #### [facility] [address] [place] [address] Dr. Christian Lebron INR GUIDELINES SEE BELOW Normal [facility] Comment on above: Result Comment: EVER RED INR: 2.0 - 3.0 CONDITIONS NOT LISTED BELOW 2.5 - 3.5 FOR PROSTHETIC HEART VALVE REPLACEMENT 2.5 - 3.5 RECURRENT THROMBOSIS Performed By: #### H OMCY #### [facility] [address] [place] [address] Dr. Christian Lebron PT Coag (PPP) [Time] 10.0 s Normal 9.0-11.6 [facility] Comment on above: Performed By: #### H OMCY #### [facility] [address] [place] [address] Dr. Christian Lebron PTTon 01-31-2021 aPTT Coag (Bld) [Time] 28.2 s Normal 22.3-36.2 Th e [facility] Comment on above: Performed By: #### H OMCY #### [facility] [address] [place] [address] Dr. Christian Lebron TROPONIN, HIGH SENSITIVITYon 01-31-2021 HSTROP 15.5 pg/mL Normal 4.0-35.5 [facility] Comment on above: Result Comment: CUT- OFF POINTS HAVE BEEN ESTABLISHED BASED ON THE FOURTH UNIVERSAL DEFINITIONS OF MYOCARDIAL INFARCTION. THE UPPER REFERENCE LIMIT (URL) OF TROPONIN, DEFINED THE 99TH PERCENTILE OF cTnI DISTRIBUTION IN A REFERENCE POPULATION, HAS BEEN CONFIRMED THE DECISION THRESHOLD FOR [place] DIAGNOSIS. Performed By: #### H OMCY #### [facility] [address] [address] [address] Christian Lebron TSHon 01-31-2021 TSH 3.025 uIU/mL Normal 0.470-4.68 0 [facility] Comment on above: Performed By: #### H OMCY #### [facility] [address] [address] [address] Christian Lebron TSH RANGE SEE BELOW Normal [facility] Comment on above: Result Comment: <0.3 4 UIU/ml HYPERTHYROID 0.34-5.60 UIU/ml EUTHYROID >5.60 UIU/ml HYPOTHYROID Performed By: #### H OMCY #### [facility] [address] [address] [address] Christian Lebron Vital Signs Date Time Vital Sign Value Performing Clinician Facility 11-14-2023 17:04-0500 Body height 162.6 cm Ismael Aquino DPM Work Phone: [facility] 11-14-2023 17:04-0500 Body mass index (BMI) [Ratio] 29.52 kg/m2 Ismael Aquino DPM Work Phone: [facility] 11-14-2023 17:04-0500 Body weight 78.02 kg Ismael Aquino DPM Work Phone: [facility] 11-14-2023 17:04-0500 Diastolic blood pressure 80 mm[Hg] Ismael Aquino DPM Work Phone: [facility] 11-14-2023 17:04-0500 Heart rate 77 /min Ismael Aquino DPM Work Phone: [facility] 11-14-2023 17:04-0500 Systolic blood pressure 123 mm[Hg] Ismael Aquino DPM Work Phone: [facility] 09-26-2023 12:00-0500 Body height 167.64 cm Sergio Escudero Other [facility] Other 09-26-2023 12:00-0500 Body mass index (BMI) [Ratio] 25.01 kg/m2 Sergio Kota Other [facility] Other 09-26-2023 12:00-0500 Body temperature 96.1 [degF] Sergio Kota Other [facility] Other 09-26-2023 12:00-0500 Body weight 70.31 kg Sergio Kota Other [facility] Other 09-26-2023 12:00-0500 Diastolic blood pressure 62 mm[Hg] Sergio Escudero Other [facility] Other 09-26-2023 12:00-0500 SaO2% (BldA) [Mass fraction] 99 % Sergio Kota Other [facility] Other 09-26-2023 12:00-0500 Systolic blood pressure 120 mm[Hg] Sergio Escudero Other [facility] Other 03-20-2023 11:30-0400 Body height 167.64 cm Raysa Robins Other [facility] Other 03-20-2023 11:30-0400 Body mass index (BMI) [Ratio] 25.01 kg/m2 Raysa Robins Other [facility] Other 03-20-2023 11:30-0400 Body temperature 97.8 [degF] Raysa Robins Other [facility] Other 03-20-2023 11:30-0400 Body weight 70.31 kg Raysa Robins Other [facility] Other 03-20-2023 11:30-0400 Diastolic blood pressure 86 mm[Hg] Raysa Robins Other [place] Other 03-20-2023 11:30-0400 SaO2% (BldA) [Mass fraction] 99 % Raysa Robins Other [place] [facility] Other 03-20-2023 11:30-0400 Systolic blood pressure 122 mm[Hg] Raysa Robins Other [facility] Other 09-21-2022 12:15-0500 Body height 167.64 cm Abdulaziz Alvarez MD Work Phone: [facility] [place] [address] DO Work Phone: 09-21-2022 12:15-0500 Body mass index (BMI) [Ratio] 24.05 kg/m2 Abdulaziz Alvarez MD Work Phone: [facility] [place] 250 DO Work Phone: 09-21-2022 12:15-0500 Body surface area Derived from formula 1.76 m2 Abdulaziz Alvarez MD Work Phone: [facility] [place] 250 DO Work Phone: 09-21-2022 12:15-0500 Body weight 67.59 kg Abdulaziz Alvarez MD Work Phone: [facility] [place] 250 DO Work Phone: 09-21-2022 12:15-0500 Diastolic blood pressure 78 mm[Hg] Abdulaziz Alvarez MD Work Phone: [facility] [place] 250 DO Work Phone: 09-21-2022 12:15-0500 Heart rate 84 /min Abdulaziz Alvarez MD Work Phone: [facility] [place] 250 DO Work Phone: 09-21-2022 12:15-0500 Systolic blood pressure 126 mm[Hg] Abdulaziz Alvarez MD Work Phone: [facility] [place] 250 DO Work Phone: 09-12-2022 11:45-0500 Body height 167.64 cm Sergio Escudero Other [facility] Other 09-12-2022 11:45-0500 Body mass index (BMI) [Ratio] 27.44 kg/m2 Sergio Escudero Other [facility] Other 09-12-2022 11:45-0500 Body temperature 97.8 [degF] Sergio Escudero Other [facility] Other 09-12-2022 11:45-0500 Body weight 77.11 kg Sergio Escudero Other [facility] Other 09-12-2022 11:45-0500 Diastolic blood pressure 68 mm[Hg] Sergio Escudero Other [facility] Other 09-12-2022 11:45-0500 SaO2% (BldA) [Mass fraction] 98 % Sergio Escudero Other [facility] Other 09-12-2022 11:45-0500 Systolic blood pressure 116 mm[Hg] Sergio Escudero Other [facility] Other 08-14-2022 12:47-0500 Diastolic blood pressure 71 mm[Hg] DO Edward Bernstein Work Phone: [facility] 08-14-2022 12:47-0500 Systolic blood pressure 177 mm[Hg] DO Edward Bernstein Work Phone: [facility] 08-14-2022 12:00-0500 Body temperature 98.3 [degF] DO Edward Bernstein Work Phone: [facility] 08-14-2022 12:00-0500 Heart rate 79 /min DO Edward Bernstein Work Phone: [facility] 08-14-2022 12:00-0500 Respiratory rate 16 /min DO Edward Bernstein Work Phone: [facility] 08-14-2022 12:00-0500 SaO2% (BldA) [Mass fraction] 98 % DO Edward Bernstein Work Phone: [facility] 08-14-2022 04:50-0500 Body weight 66.6 kg DO Edward Bernstein Work Phone: [facility] 08-13-2022 20:45-0500 Body temperature 97.8 [degF] DO Edward Bernstein Work Phone: [facility] 08-13-2022 20:45-0500 Diastolic blood pressure 68 mm[Hg] DO Edward Bernstein Work Phone: [facility] 08-13-2022 20:45-0500 Heart rate 80 /min DO Edward Bernstein Work Phone: [facility] 08-13-2022 20:45-0500 Respiratory rate 20 /min DO Edward Bernstein Work Phone: [facility] 08-13-2022 20:45-0500 SaO2% (BldA) [Mass fraction] 99 % DO Edward Bernstein Work Phone: [facility] 08-13-2022 20:45-0500 Systolic blood pressure 188 mm[Hg] DO Edward Bernstein Work Phone: [facility] 08-13-2022 11:50-0500 Body height 167.64 cm DO Edward Bernstein Work Phone: [facility] 08-13-2022 06:00-0500 Body weight 68.8 kg DO Edward Bernstein Work Phone: [facility] Encounters Encounter Date Encounter Type Care Provider Facility Start: 01-21-2024 End: 01-21-2024 ambulatory YULIA D BEJ Not Available Start: 11-14-2023 End: 11-14-2023 ambulatory ISMAEL AQUINO Not Available Start: 11-14-2023 End: 11-14-2023 Patient encounter procedure Ismael Aquino DPM Work Phone: [facility] Comment on above: PVD (peripheral vasc ular disease) (CMS/HCC) (Primary Dx); Onychomycosis; Toe pain, left; Toe pain, right; Venous insufficiency Start: 11-14-2023 Chart abstracting Ismael estevez DPM Work Phone: [facility] Start: 11-11-2023 Chart abstracting Ismael estevez DPM Work Phone: [facility] Start: 10-16-2023 End: 10-16-2023 ambulatory KALI MAHARAJ Not Available Start: 10-01-2023 End: 10-01-2023 ambulatory YULIA D BEJ Not Available Start: 09-26-2023 Office outpatient vi sit 15 minutes Sergio Escudero [facility] Start: 09-26-2023 End: 09-26-2023 ambulatory Raysa Robins Facility:[facility] Start: 09-26-2023 End: 09-26-2023 ambulatory II Kali Maharaj Work Phone: [facility] Other Start: 09-26-2023 End: 09-26-2023 Patient encounter procedure II Kali Maharaj Work Phone: [facility] Start: 03-20-2023 End: 03-20-2023 Patient encounter procedure Raysa Zhaosteffi [facility] Start: 03-20-2023 End: 03-20-2023 ambulatory II Kali Maharaj Work Phone: [facility] Other Start: 03-13-2023 ambulatory Abdulaziz Alvarez Facility : Start: 11-10-2022 Chart Update Abdulaziz Alvarez MD Work Phone: [facility] 250 DO Work Phone: Start: 10-30-2022 Telephone encounter Abdulaziz day MD Work Phone: [facility] 600 DO Work Phone: Start: 10-22-2022 Patient encounter procedure Abdulaziz Alvarez MD Work Phone: [facility] 250 DO Work Phone: Start: 09-21-2022 ambulatory Abdulaziz Alvarez Facility : Start: 09-21-2022 Office outpatient vi sit 25 minutes Abdulaziz Alvarez MD Work Phone: [facility] 250 DO Work Phone: Start: 09-18-2022 Chart Update Abdulaziz Alvarez MD Work Phone: [facility] 250 DO Work Phone: Start: 09-14-[address] Kali Maharaj II Facility:[id number] Start: 09-12-2022 End: 09-12-2022 ambulatory Sergio Escudero Other [facility] Other Start: 09-12-2022 Office outpatient vi sit 15 minutes Sergio Escudero [facility] Start: 08-14-2022 ambulatory Cintronjerica Alvarez Facility :[id number] Start: 08-14-2022 Patient encounter procedure DO Edward Bernstein Work Phone: [facility] Start: 08-13-2022 End: 08-13-2022 ambulatory DO Edward Bernstein Work Phone: [facility] Work Phone: Start: 08-13-2022 End: 08-13-2022 Patient encounter procedure DO Edward Bernstein Work Phone: [facility] Start: 08-12-2022 ambulatory Cintron Alvarez Facility :[id number] Start: 08-11-2022 ambulatory Cintron Alvarez Facility :[id number] Start: 08-10-2022 ambulatory Cintron Alvarez Facility :[id number] Start: 08-10-2022 End: 08-14-2022 Evaluation and management of inpatient DO Edward Bernstein Work Phone: [facility] Start: 12-26-2021 End: 12-26-2021 ambulatory Jhonatan Oakes Other [facility] Other Start: 12-26-2021 Telephone encounter Jhonatan Oakes [facility] Start: 2021 End: 08-24-2021 ambulatory YULIA MCCRAY Facility:H1 Start: 07-10-2021 End: 07-11-[address] KALI MAHARAJ Facility:H1 Start: 07-03-[address] KALI MAHARAJ Facilit y:H1 Start: 02-08-2021 End: 03-08-[address] KALI MAHARAJ Facility:H1 Start: 02-01-2021 End: 02-02-2021 ambulatory LULU FRIEDMAN Facility:H1 Start: 01-31-2021 End: 02-01-2021 ambulatory UNKNOWN PROVIDER Facility:[facility] Start: 12-05-[address] MAX CARBONE Fac ility:H1 Start: 09-04-2018 End: 09-05-2018 Patient encounter procedure DEFAULT PHYSICIAN Facility:[facility] Procedures Date Procedure Procedure Detail Performing Clinician Start: 09-26-2023 Doppler ultrasonogra phy of bilateral carotid arteries II Kali Maharaj Work Phone: Start: 08-10-2022 Doppler ultrasonogra phy of bilateral carotid arteries DO Edward Bernstein Work Phone: Start: 08-10-2022 CT of head without contrast DO Edward Bernstein Work Phone: Start: 08-10-2022 Plain chest X-ray DO Harjit Bernstein Work Phone: Operative procedure on foot Abdulaziz Alvarez MD Work Phone: SARS-CoV-2, Influenz a & RSV (PCR) DO Edward Bernstein Work Phone: Tonsillectomy Abdulaziz Alvarez MD Work Phone: Total colonoscopy Abdulaziz day MD Work Phone: Plan of Treatment Date Care Activity Detail Author Start: 02-17-2024 End: 02-17-2024 Patient encounter procedure 02/17/2024 1:15 PM EDT Office Visit [facility] [address] [facility] [address] [place] [address] Kali Maharaj MD [address] [facility] [address] [place] [address] [facility] Start: 01-23-2024 End: 01-23-2024 Patient encounter procedure 01/23/2024 4:10 PM EDT Procedure Visit [facility] [address] [facility] [address] [place] [address] Ismael Aquino DPM [address] [facility] 5 [place] [address] [facility] Start: 12-10-2023 End: 12-10-2023 Patient encounter procedure 12/10/2023 2:00 PM EST Office Visit [facility] [address] [facility] [address] [place] [address] Yulia Mccray MD [address] [facility] [address] [place], [place] [id number] [facility] Start: 11-21-2023 Medicare Annual Wellness (AWV) Medicare Annual Wellness (AWV) [facility] Start: 11-14-2023 End: 11-14-2023 Patient encounter procedure 11/14/2023 4:50 PM EST Procedure Visit [facility] [address] [facility] [address] [place] [address] Ismael Aquino, DPM [address] [address] [facility] Start: 11-11-2023 End: 11-11-2023 Patient encounter procedure 11/11/2023 1:50 PM EST Procedure Visit [facility] [address] [place] [id number] Ismael Aquino, DPM [address] [address] [facility] Start: 03-20-2023 Doppler ultrasonography of bilateral carotid arteries US carotid doppler BI [facility] Start: 03-20-2023 US.doppler Carotid arteries - bilateral [facility] Start: 03-13-2023 FUV, Provider: Abdulaziz Alvarez, Status: Pen, Time: 11:50 AM FUV, Provider: Abdulaziz Alvarez, Status: Pen, Time: 11:50 AM [facility] DO Work Phone: Start: 09-21-2022 FUV, Provider: Abdulaziz Alvarez, Status: Pen, Time: 11:50 AM FUV, Provider: Abdulaziz Alvarez, Status: Pen, Time: 11:50 AM [facility] 250 DO Work Phone: Start: 08-14-2022 [facility] Start: 08-13-2022 [facility] Start: 08-12-2022 Referral to vascular surgeon [facility] Start: 08-10-2022 Hospital admission [facility] Start: 08-10-2022 [facility] Patient Education Carotid Artery Disease Carotid Artery Disease (DC) [facility] Work Phone: Patient referral [facility] Work Phone: Immunizations Immunization Date Immunization Notes Care Provider Tito gaviria 08-12-2023 Influenza, High-dose Seasonal, Quadrivalent, Preservative Free Ismael Aquino DPM Work Phone: [facility] 09-21-2022 Moderna SARS-CoV-2 Booster Vaccination Ismael Aquino DPM Work Phone: [facility] 07-27-2022 Fluzone High-Dose Quadrivalent 0.7 ML Intramuscular Suspension Prefilled Syringe Abdulaziz Alvarez MD Work Phone: [facility] 05-08-2022 Moderna COVID-19 Vac cine 100 MCG/0.5ML Intramuscular Suspension Abdulaziz Alvarez MD Work Phone: [facility] 250 DO Work Phone: 08-07-2021 influenza, high dose seasonal, preservative-free Abdulaziz Alvarez MD Work Phone: [facility] 250 DO Work Phone: 08-04-2021 Moderna COVID-19 Vac cine 100 MCG/0.5ML Intramuscular Suspension Abdulaziz Alvarez MD Work Phone: [facility] 250 DO Work Phone: 11-23-2020 Moderna COVID-19 Vac cine 100 MCG/0.5ML Intramuscular Suspension Abdulaziz Alvarez MD Work Phone: [facility] 250 DO Work Phone: 10-21-2020 Moderna COVID-19 Vac cine 100 MCG/0.5ML Intramuscular Suspension Abdulaziz Alvarez MD Work Phone: [facility] 250 DO Work Phone: 07-05-2020 zoster vaccine recombinant Abdulaziz Alvarez MD Work Phone: [facility] 07-01-2020 influenza, high dose seasonal, preservative-free Abdulaziz Alvarez MD Work Phone: [facility] 250 DO Work Phone: 07-01-2020 Influenza, High-dose Seasonal, Quadrivalent, Preservative Free Ismael Aquino DPM Work Phone: [facility] 06-22-2019 Seasonal trivalent influenza vaccine, adjuvanted, preservative free Abdulaziz Alvarez MD Work Phone: [facility] 07-21-2018 influenza, high dose seasonal, preservative-free Abdulaziz Alvarez MD Work Phone: [facility] 250 DO Work Phone: 06-06-2018 influenza, high dose seasonal, preservative-free Abdulaziz Alvarez MD Work Phone: [facility] 06-18-2017 influenza, high dose seasonal, preservative-free Abdulaziz Alvarez MD Work Phone: [facility] 06-18-2017 pneumococcal polysaccharide vaccine, 23 valent Abdulaziz Alvarez MD Work Phone: [facility] 07-13-2016 influenza, high dose seasonal, preservative-free Abdulaziz Alvarez MD Work Phone: [facility] 07-23-2015 pneumococcal conjuga te vaccine, 13 valent Abdulaziz Alvarez MD Work Phone: [facility] 07-07-2015 influenza, injectabl e, quadrivalent, preservative free Ismael Aquino DPM Work Phone: [facility] 07-03-2013 influenza, seasonal, injectable, preservative free Ismael Aquino DPM Work Phone: [facility] 10-07-2010 pneumococcal polysaccharide vaccine, 23 valent Ismael Aquino DPM Work Phone: [facility] 07-20-2010 seasonal influenza, intradermal, preservative free Ismael Aquino DPM Work Phone: [facility] Payers Date Payer Category Payer Medicaid [id number] 2017 Medicare [employer] MEDICARE ADVANTAGE [employer] MEDICARE [id number] 2017-Present [address] [address] [place] [address] [id number] 1959 Private Health Insurance [id number] 1959 Self-pay 1940 Unknown [id number] 2.16.840.1.222163.3.579.2. 647 1940 Unknown [id number] 2.16.840.1.326252.3.579.2. 732 1940 Unknown [id number] 2.16.840.1.543883.3.579.2. 593 1940 Unknown [id number] 2.16.840.1.098001.3.579.2. 593 1940 Unknown [id number] 2.16.840.1.385243.3.579.2. 593 1940 Unknown [id number] 2.16.840.1.753003.3.579.2. 593 1940 Unknown [id number] 2.16.840.1.979702.3.579.2. 593 1940 Unknown [id number] 2.16.840.1.841284.3.579.2. 593 1940 Unknown [id number] 2.16.840.1.957526.3.579.2. 593 1940 Unknown [id number] 2.16.840.1.620933.3.579.2. 356 1940 Unknown [id number] 2.16.840.1.436652.3.579.2. 356 1940 Unknown [id number] 2.16.840.1.219496.3.579.2. 356 1940 Unknown [id number] 2.16.840.1.412417.3.579.2. 356 1940 Unknown [id number] 2.16.840.1.407602.3.579.2. 356 1940 Unknown [id number] 2.16.840.1.424264.3.579.2. 356 1940 Unknown [id number] 2.16.840.1.209878.3.579.2. 356 1940 Unknown [id number] 2.16.840.1.376131.3.579.2. 356 1940 Unknown [id number] 2.16.840.1.971393.3.579.2. 1259 1940 Unknown [id number] 2.16.840.1.320902.3.579.2. 1259 1940 Unknown [id number] 2.16.840.1.088012.3.579.2. 1259 1940 Unknown [id number] 2.16.840.1.847980.3.579.2. 1259 Medicare Medicare [id number] Unknown Unknown Insurance No Card [id number] Unknown [id number] 2.16.840.1.725961.3.579.2. 531 Unknown [id number] 2.16.840.1.655990.3.579.2. 531 Social History Date Type Detail Facility Start: 04-10-2023 End: 10-16-2023 Sex Assigned At [facility] Other Start: 08-13-2022 End: 08-13-2022 Tobacco smoking status COIS Smoker (finding) [facility] Start: 1940 Sex Assigned At Female F [facility] Start: 04-10-2023 End: 10-16-2023 Consumes alcohol occasionally Consumes alcohol occasionally -[facility] 250 DO Work Phone: Comment on above: coffee 1 cup daily; 1 pack per week; Start: 10-07-1987 [facility] tobacco daily [facility] Start: 10-07-1987 History of tobacco use Cigarette Smo ker [facility] History of tobacco use Passive smoker [facility] Start: 04-08-2023 Tobacco use and exposure Smokeless tobacco non-user [facility] Start: 10-16-2023 End: 11-14-2023 Alcohol intake Lifetime non-drinker (finding) [facility] Start: 1940 Sex Assigned At Not on file [facility] Start: 11-14-2023 Alcohol Comment caffeine intak e: 1-2 cups per day [facility] Goals Date Patient Goal Desired Activity /State Functional Status Date Assessment Result Facility 08-14-2022 Functional status Patient at Baseline [facility] Work Phone: 08-10-2022 Functional status Patient at Baseline [facility] Work Phone: Mental Status Date Assessment Result Facility 08-14-2022 Cognitive function Cognitive Sta tus Patient at Baseline [facility] Work Phone: 08-10-2022 Cognitive function Cognitive Sta tus Patient at Baseline [facility] Work Phone: Clinical Notes 08-10-2022 to 11-14-2023 Ismael Aquino, CHRISTEL - 11/14/2023 4:50 PM EST Note Date & Type Note Facility 11-14-2023 History of Presen t illness Narrative Patient: Carley Quintanilla : 1940 PCP: Kali Maharaj MD SUBJECTIVE This is a 83 y.o. female that presents today with a CC of elongated, thick nails. Pt states nails have been elongated and thick for many years and cause pain with ambulation in shoegear. Pt has tried previous treatment with minimal relief. Pt presents today for nail care and treatment. Patient has PVD Allergies: No Known Allergies Past Medical History: Past Medical History: Diagnosis Date At risk for falls Bilateral carotid artery occlusion BMI 30.0-30.9,adult Cataract 2012 Chronic airway obstruction (CMS/HCC) not elsewhere classified Chronic pancreatitis ([facility]/HCC) Congenital mitral insufficiency Convulsion (CMS/HCC) COPD (chronic obstructive pulmonary disease) (CMS/HCC) Coronary artery stenosis ([facility]/HCC) 2017 Dr. Suraj Serrano Diastolic heart failure ([facility]/HCC) unspecified Disease of thyroid gland ([facility]/HCC) Disease of tricuspid valve Epilepsy (CMS/HCC) Esophageal reflux Essential hypertension, benign (CMS/HCC) Essential tremor and other specified forms of tremors Frequent falls GERD (gastroesophageal reflux disease) H/O complete eye exam 2013 Heart disease unspecified Hx of being hospitalized 05/28/2021 Syncope, UTI, KRISTAN Hyperlipidemia (CMS/HCC) Hypertension ([facility]/HCC) Hypothyroidism, unspecified type ([facility]/HCC) Localization-related (focal) (partial) symptomatic epilepsy and epileptic syndromes with simple partial seizures ([facility]) without mention of intractable epilepsy Mixed hyperlipidemia ([facility]/HCC) Occlusion and stenosis of left carotid artery without mention of cerebral infarction OM (onychomycosis) Peripheral vascular disease, unspecified (CMS/HCC) Precancerous lesion nosebridge PVD (peripheral vascular disease) ([facility]) Renal injury Syncope 08/10/2022 Toe pain, bilateral Medications: Current Outpatient Medications: alendronate (Fosamax) 70 MG tablet, Take 1 tablet weekly 30 min prior to the first food of the day, Disp: , Rfl: amLODIPine (Norvasc) 10 MG tablet, 1 (one) time each day at the same time., Disp: , Rfl: aspirin 81 MG EC tablet, Take 81 mg by mouth 1 (one) time., Disp: , Rfl: Calcium Carbonate-Vitamin D (OYSTER-OPHELIA 500 + D PO), Take by mouth 2 (two) times a day., Disp: , Rfl: hydrALAZINE (Apresoline) 25 MG tablet, TAKE 1 TABLET BY MOUTH THREE TIMES A DAY WITH FOOD FOR 90 DAYS, Disp: 270 tablet, Rfl: 1 levothyroxine (Synthroid) 75 MCG tablet, 1 (one) time each day at the same time., Disp: , Rfl: lisinopril-hydroCHLOROthiazide 20-12.5 MG tablet, Take 1 tablet by mouth in the morning and 1 tablet before bedtime., Disp: 200 tablet, Rfl: 3 Multiple Vitamins-Minerals (Centrum Silver 50+Women) tablet, take 1 by Oral route every day Oral, Disp: , Rfl: pantoprazole (ProtoNix) 40 MG EC tablet, Take 1 tablet (40 mg) by mouth in the morning. Take before meals., Disp: 100 tablet, Rfl: 4 PARoxetine (Paxil) 20 MG tablet, Take 1 tablet (20 mg) by mouth at bedtime. (Patient taking differently: Take 40 mg by mouth at bedtime), Disp: 90 tablet, Rfl: 3 simvastatin (Zocor) 20 MG tablet, Take 20 mg by mouth at bedtime., Disp: , Rfl: Social History: Social History Socioeconomic History Marital status: Spouse name: Not on file Number of children: Not on file Years of education: Not on file Highest education level: Not on file Occupational History Not on file Tobacco Use Smoking status: Every Day Types: Cigarettes Start date: 1987 Passive exposure: Current Smokeless tobacco: Never Vaping Use Vaping Use: Unknown Substance and Sexual Activity Alcohol use: Never Comment: caffeine intake: 1-2 cups per day Drug use: Never Sexual activity: Defer Partners: Decline to Answer Other Topics Concern Not on file Social History Narrative Not on file Social Determinants of Health Financial Resource Strain: Not on file Food Insecurity: Not on file Transportation Needs: Not on file Physical Activity: Not on file Stress: Not on file Social Connections: Not on file Intimate Partner Violence: Not on file Housing Stability: Not on file ROS: General: denies fever, chills, fatigue, malaise OBJECTIVE LE EXAM: DERM: Elongated thick yellow crumbly nails digits 1 through 10. Negative hair growth with thin shiny atrophic skin bilaterally VASC: Negative DP and negative PT pedal pulses NEURO: gross sensation intact to bilateral feet ORTHO: Positive pain on palpation to nails 1 through 10 ASSESSMENT 1. PVD (peripheral vascular disease) (CMS/HCC) 2. Onychomycosis 3. Toe pain, left 4. Toe pain, right 5. Venous insufficiency PLAN Discussed proper foot care with patient today. Debride nails in length and thickness digits 1 through 10 Ismael Aquino DPM documented in this encounter [facility] 09-26-2023 Evaluation note Encounter Date Diagnosis Assessment Notes Sep, Asymptomatic stenosis of right carotid artery (ICD-10 - I65.21) I recommend seeing this patient back in 1 year. I admonished her for smoking and offered her free resources to quit by the [facility]. She refused. There is no indication for any surgical intervention at this time. [facility] 06-14-2023 Evaluation note* Encounter Date Diagnosis Assessment Notes Treatment Notes Treatment Clinical Notes Mar, Carotid stenosis, bilateral (ICD-10 - I65.23) We reviewed today's carotid duplex studies which continue to remain stable showing less than 70% stenosis of the right ICA. She remains asymptomatic and on good medical therapy with use of aspirin and statin medication daily. We will continue to follow her along a routine basis and have her back again in 6 months time with repeat studies. She knows to call us in the meantime with any issues or concerns. I did review signs and symptoms of carotid occlusive disease with the patient and her sister and they know to call us in the meantime with any issues prior to her next scheduled appointment. [facility] Other 12-07-2022 Evaluation note* Encounter Date Diagnosis Assessment Notes Treatment Notes Treatment Clinical Notes Sep, Asymptomatic stenosis of right carotid artery (ICD-10 - I65.21) This patient patient has about 70% stenoses of her right internal carotid artery. This has been stable. I do not believe is contributing to her of her other symptoms. Her left side is normal. Both vertebral arteries are widely patent with antegrade flow. Therefore I do not believe that her passing out and or drop attacks is related to her carotid artery whatsoever. We will see her back in 6 months to check the right carotid artery with a surveillance scan otherwise she should continue her aspirin and statin for life. I look forward to hearing back about her cardiac work-up in the near future. She is due for results in the next few weeks. [facility] Other 11-08-2022 Discharge summary Author Dee Kenney [facility] August 14, 2022 1:38pm Note Date/Time August 14, 2022 1 :13pm [facility] [address] [place] [address] Discharge Summary Signed Patient: Carley Quintanilla MR#: [id number] : 1940 Acct:[id number] Age/Sex: 81 / F Adm Date: 2 Loc: 4N Room: 1J4167-[address]: Dee Kenney MD Copies to: MD Dee Ortiz II, MD~ Providers Date of Discharge: 08/14/22 Discharging Provider: Dee Kenney Primary Care Provider: Kali Maharaj Consults: 08/10/22 20:19 Consult to Occupational Therapy Routine Consult to Physical Therapy Routine 08/11/22 10:27 Consult to Cardiology Routine 08/12/22 16:24 Consult to Vascular Surgery Routine Discharge Diagnosis (1) Syncope: (2) Bilateral carotid artery disease: (3) Tobacco abuse: Final Diagnosis Final Discharge Diagnosis: As above Summary Hospital Course Hospital course: Patient is a pleasant 81-year-old female with history of carotid artery disease,hypertension and other medical comorbidities. She was brought to the emergency room after having a syncopal episode while at her hairdresser getting her hair done sitting. She was found to be bradycardic by the EMS given atropine and brought to the emergency room. She was noted to be in sinus bradycardia and diltiazem has been discontinued with improvement in heart rate. She was seen bycardiology with recommendation for event monitor on discharge for 30 days to assess the need for pacemaker. Regarding her carotid artery disease she was seen by vascular surgery with no acute intervention recommended and plan for outpatient follow-up. She remained symptom-free during hospital stay. Clonidine and diltiazem has been discontinued and found to have rebound hypertension. She has been started on hydralazine and amlodipine. Dose of hydralazine can be uptitrated depending upon her blood pressure along with addition of hydrochlorothiazide if remains high. Due to improved symptoms she will be discharged home with 30 days event monitor and been followed by cardiology and vascular surgery. Called her POA Dulce Phillips and updated on her condition and discharge planning. Condition Condition at Discharge: Stable Status at Discharge Functional status at discharge: independent ambulation Overall status at discharge: patient is back to baseline Time Spent with Patient Time spent providing/coordinating discharge services (# min): 36 Exam Physical Exam Vital Signs: Temp Pulse Resp BP Pulse Ox O2 Del Method 98.3 F 79 16 177/71 H 98 Room Air 08/14/22 12:00 08/14/22 12:00 08/14/22 12:00 08/14/22 12:47 08/14/22 12:00 08/14/22 12:00 Const General: cooperative Orientation: alert, awake and oriented x3 Neck Neck: normal visual inspection and full ROM Resp Effort & Inspection: normal respiratory effort and able to speak in complete sentences Auscultation: no rales, no rhonchi and no wheezes Cardio Rate: regular rate Rhythm: regular rhythm Heart Sounds: S1 normal and S2 normal GI Palpation: soft, not firm, no guarding and nontender Auscultation: normal bowel sounds Neuro General: patient alert, patient awake, patient oriented x3, moves all extremities and no focal motor deficits Cranial Nerves: CN's II-XII intact bilaterally Cognition: normal cognition Speech: speech normal Motor: muscle tone normal throughout and strength 5/5 throughout Sensory Exam: no sensory deficits noted Extrem General: no clubbing, cyanosis or edema and no calf tenderness Discharge Plan Discharge Plan Patient Disposition: Home Activity: Ambulate as Tolerated Diet: Regular Additional Instructions: You should have a [employer] 30 Day Director Industrial Nursing prior to discharge. Instructions: Carotid Artery Disease, Carotid Artery Disease (DC) Prescriptions: New hydralazine 25 mg Tablet 25 mg PO TID 30 Days Qty: 90 0RF amlodipine 10 mg Tablet 10 mg PO DAILY 30 Days Qty: 30 0RF Continued pantoprazole 40 mg tablet,delayed release (DR/EC) 40 mg PO DAILY Label Comments: TAKE 1 TABLET BY MOUTH EVERY DAY paroxetine HCl 40 mg tablet 40 mg PO DAILY Label Comments: TAKE 1 TABLET BY MOUTH EVERY DAY FOR 90 DAYS atorvastatin 80 mg tablet 80 mg PO QHS levothyroxine 75 mcg tablet 75 mcg PO DAILY.0630 lisinopril 20 mg Tablet 20 mg PO BID 30 Days Qty: 60 3RF nicotine 21 mg/24 hr Patch 24 Hour 1 ea transdermal DAILY 30 Days 0RF aspirin [Gregory Low Dose Aspirin] 81 mg tablet,delayed release (DR/EC) 81 mg PO DAILY Qty: 30 0RF Changed alendronate 70 mg tablet 70 mg PO Q7D Qty: 10 0RF Label Comments: TAKE 1 TABLET WEEKLY 30 MINTUES PRIOR TO THE FIRST FOOD, BEVERAGE, OR MEDICINE OF THE DAY Discontinued clonidine HCl 0.3 mg tablet 0.3 mg PO DAILY Label Comments: TAKE 1 TABLET BY MOUTH TWICE A DAY FOR 90 DAYS diltiazem HCl [Tiadylt ER] 360 mg capsule,extended release 24 hr 360 mg PO DAILY Label Comments: TAKE 1 CAPSULE BY MOUTH EVERY DAY simvastatin 40 mg tablet 40 mg PO DAILY Label Comments: TAKE 1 TABLET BY MOUTH EVERY DAY IN THE EVENING FOR 90 DAYS diltiazem HCl [Tiadylt ER] 360 mg capsule,extended release 24 hr 360 mg PO DAILY cephalexin 500 mg capsule 500 mg PO BID 3 Days Qty: 6 0RF Other Ambulatory Orders: PT/OT/SP OutPatient Referral (Routine) Timeframe: 1 Day Location: Determined by Patient Ordered By: Dee Kenney Follow Up: Abdulaziz Alvarez MD [Active Staff] - Kali Maharaj II, MD [Primary Care Provider] - 08/23/22 2:00 pm (You have been scheduled for a follow up appointment for the following date and time, please call to reschedule if needed.) Sergio Escudero MD [Active Staff] - 09/05/22 10:30 am (Please call the office to reschedule this appointment if this time does not work for you. Thankyou.) Documented By: Dee Kenney MD 08/14/22 1309 Signed By: <Electronically signed by Dee Kenney MD> 08/14/22 69[address] [facility] Work Phone: [phone]) [phone] Progress note Author Sergio Escudero [facility] August 14, 2022 11:52am Note Date/Time August 14, 2022 1 0:02am [facility] [address] [place] [address] Vascular Surgery Progress Note Signed with Addenda Patient: Carley Quintanilla MR#: [id number] : 1940 Acct:[id number] Age/Sex: 81 / F Adm Date: 2 Loc: Room: [address] [place] [address] Type: ADM IN Attending Dr: Dee Kenney MD Copies to: ~ ADDENDUM1 Patient was seen on rounds just moments ago. She was alone in the room. She was awake alert and oriented. She was comfortable. She was lying in the bed. She was in no distress. She was in no pain. She is not having any lateral signs or symptoms at this moment. Her systolic blood pressure was 184. Exam was unremarkable. My recommendation is to let her go home from a vascular surgery standpoint and we will follow-up in the office. We will decide on whether or not to revascularize the carotid based on the 24-hour cardiac monitoring results. I explained his present plan to the patient and the charge nurse. We will be happy to follow-up in the office from here on out. Addendum Documented By: Sergio Escudero MD 08/14/22 1152 Addendum Signed By: <Electronically signed by Sergio Escudero MD> 08/14/22 1152 Date of Service: 08/14/2022 Subjective Subjective Interval history: Chart rounds. Patient not seen yet. Plan for later today. Exam Physical Exam Vital Signs: Temp Pulse Resp BP Pulse Ox O2 Del Method 98.2 F 83 16 181/67 H 96 Room Air 08/14/22 08:00 08/14/22 08:00 08/14/22 08:00 08/14/22 08:00 08/14/22 08:00 08/14/22 08:00 Narrative: Chart rounds. Objective Labs CBC & Chem 7: 08/10/22 17:15 08/12/22 04:36 Microbiology Microbiology: Microbiology - Results from entire visit 08/10/22 19:25 Nasopharyngeal SARS-CoV-2, Influenza & RSV (PCR) - Final A&P - Vascular Assessment/Plan (1) Syncope: Code(s): R55 - Syncope and collapse Status: Acute (2) Bilateral carotid artery disease: Cardiology note reviewed. I agree with the 24-hour monitoring work-up. If thatis negative for cardiology etiology of symptoms then we will consider cerebral revascularization as an outpatient. Code(s): I77.9 - Disorder of arteries and arterioles, unspecified Status: Acute (3) Tobacco abuse: Code(s): Z72.0 - Tobacco use Status: Acute Documented By: Sergio Escudero MD 08/14/22 1000 Signed By: <Electronically signed by Sergio Escudero MD> 08/14/22 1002 [facility] Work Phone: [phone] Progress note Author Dee Kenney [facility] August 13, 2022 12:59pm Note Date/Time August 13, 2022 1 2:44pm [facility] [address] [place], [place] [id number] Hospitalist Progress Note Signed Patient: Carley Quintanilla MR#: [id number] : 1940 Acct:[id number] Age/Sex: 81 / F Adm Date: 2 Loc: Room: [address] [place] [address] Type: ADM IN Attending Dr: Dee Kenney MD Copies to: ~ Date of Service: 08/13/2022 Subjective Subjective Narrative: Patient examined at bedside and complaining of feeling tired and sleepy. Heart rate has improved in 70s with no overnight event. Blood pressure has been on the higher side. Exam Physical Exam Vital Signs: Temp Pulse Resp BP Pulse Ox O2 Del Method 98.0 F 74 20 216/72 H 100 Room Air 08/13/22 11:46 08/13/22 11:46 08/13/22 11:46 08/13/22 11:55 08/13/22 11:46 08/13/22 11:46 Const Orientation: alert, awake and oriented x3 Resp Effort & Inspection: normal respiratory effort and able to speak in complete sentences Auscultation: no rales, no rhonchi and no wheezes Cardio Rate: regular rate Rhythm: regular rhythm Heart Sounds: S1 normal and S2 normal GI Palpation: soft, not firm, no guarding and nontender Auscultation: normal bowel sounds Neuro General: patient alert, patient awake, patient oriented x3, moves all extremities and no focal motor deficits Cranial Nerves: CN's II-XII intact bilaterally Cognition: normal cognition Speech: speech normal Motor: muscle tone normal throughout and strength 5/5 throughout Sensory Exam: no sensory deficits noted Extrem General: no clubbing, cyanosis or edema and no calf tenderness Objective Lab Results CBC & Chem 7: 08/10/22 17:15 08/12/22 04:36 Meds Allergies and Active Meds Allergies chocolate flavor Allergy (Verified 05/28/21 15:09) Unknown Reaction Active Meds: Active Medications Generic Name Dose Route Start Last Admin Trade Name Radha PRN Reason Stop Dose Admin Acetaminophen 650 mg 08/10/22 20:17 Acetaminophen 325 Mg Tablet PO 08/10/23 20:16 Q6HR PRN Pain Scale 1 - 3 or fever Amlodipine Besylate 10 mg 08/13/22 09:00 08/13/22 11:46 Amlodipine 10 Mg Tablet PO 08/13/23 08:59 10 mg DAILY CARRI Administration Aspirin 81 mg 08/11/22 09:00 08/13/22 11:47 Aspirin 81 Mg Tablet. PO 08/11/23 08:59 81 mg DAILY CARRI Administration Atorvastatin Calcium 40 mg 08/13/22 22:00 Atorvastatin 40 Mg Tablet PO 08/13/23 21:59 QHS CARRI Heparin Sodium (Porcine) 5,000 unit 08/10/22 21:00 08/13/22 11:47 Heparin 5,000 Unit/Ml Vial SUBCUT 08/10/23 20:59 5,000 unit Q12HR CARRI Administration Hydralazine HCl 10 mg 08/10/22 20:17 08/11/22 21:25 Hydralazine 20 Mg/Ml Vial IV-PUSH 08/10/23 20:16 10 mg Q4H PRN Administration Hypertension Hydralazine HCl 25 mg 08/12/22 14:00 08/13/22 09:52 Hydralazine 25 Mg Tablet PO 08/12/23 13:59 25 mg TID CARRI Administration Levothyroxine Sodium 75 mcg 08/11/22 06:30 08/13/22 06:08 Levothyroxine 75 Mcg Tablet PO 08/11/23 06:29 75 mcg DAILY.0630 CARRI Administration Lisinopril 20 mg 08/11/22 22:30 08/13/22 09:52 Lisinopril 20 Mg Tablet PO 08/11/23 22:29 20 mg BID CARRI Administration Nicotine 1 each 08/11/22 09:00 08/13/22 11:50 Nicotine Patch 21 Mg/24hr 1 Each Patch.Td24 TRANSDERML 08/11/23 08:59 Not Given DAILY CARRI Omeprazole 20 mg 08/11/22 09:00 08/13/22 11:45 Omeprazole 20 Mg Capsule. PO 08/11/23 08:59 20 mg DAILY CARRI Administration Paroxetine HCl 40 mg 08/11/22 09:00 08/13/22 11:46 Paroxetine 20 Mg Tablet PO 08/11/23 08:59 40 mg DAILY CARRI Administration Sodium Chloride 10 ml 08/13/22 08:55 Sodium Chloride 0.9 % 10 Ml Syringe IV-PUSH 08/13/23 08:54 PRN PRN Flush A&P - Hospitalist Assessment/Plan (1) Syncope: (2) KRISTAN (acute kidney injury): (3) HTN (hypertension): (4) Bilateral carotid artery disease: (5) Tobacco abuse: Plan Appreciate vascular surgery consultation with no acute intervention recommended. Heart rate is improved with diltiazem on hold. No overnight event. Plan for event monitor on discharge as per cardiology. Her blood pressure significantly elevated at 216 systolic and patient is complaining of feeling tired. Dose of amlodipine has been increased. Plan to discharge home once blood pressure is optimized. Continue PT/OT. Documented By: Dee Kenney MD 08/13/22 1241 Signed By: <Electronically signed by Dee Kenney MD> 08/13/22 [address] [facility] Work Phone: [phone] Progress note Author Abdulaziz Alvarez [facility] August 13, 2022 11:03am Note Date/Time August 13, 2022 1 1:03am [facility] [address] [place] [address] Cardiology Progress Note Signed Patient: Carley Quintanilla MR#: [id number] : 1940 Acct:[id number] Age/Sex: 81 / F Adm Date: 2 Loc: Room: [address] [place] [address] Type: ADM IN Attending Dr: Dee Kenney MD Copies to: ~ Date of Service: 08/13/2022 Subjective Principal diagnosis: Syncope/bradycardia Interval history: Patient had events of significant sinus bradycardia at night but was still asymptomatic. Her blood pressure remains to be elevated and further adjustmentsare needed. Vascular surgery saw the patient's and their note was reviewed. No further action from their standpoint is going to be needed. From the cardiacstandpoint the sinus bradycardia that we have encountered does not explain the patient's syncope since she has been asymptomatic with it. She has been off of all medication that can cause bradycardia. I believe the best course of action at this time is to perform a 30-day event monitor significant capture syncopal event. Presently there is no indication for pacemaker. Once the patient's blood pressure is under control she can be discharged home. She need to quit smoking Exam Physical Exam Vital Signs: Temp Pulse Resp BP Pulse Ox O2 Del Method 97.4 F L 78 20 194/71 H 98 Room Air 08/13/22 08:00 08/13/22 08:00 08/13/22 08:00 08/13/22 08:00 08/13/22 08:00 08/13/22 08:00 Const General: cooperative, healthy appearing, comfortable and no acute distress Nutritional Appearance: average body habitus Orientation: alert, awake and oriented x3 HEENT Head: normal to inspection, normocephalic and atraumatic Ears: hearing grossly normal bilaterally Nose: external nose normal Face and sinus: normal facial exam Eyes General: appearance normal, both eyes and all related structures Conjunctivae: conjunctivae normal Pupils: PERRL Neck Neck: normal visual inspection, full ROM, no lymphadenopathy, trachea midline and supple Neck mass: No Thyroid: thyroid normal Carotids: normal carotid upstroke Resp Effort & Inspection: normal respiratory effort Auscultation: clear to auscultation bilaterally Cardio Jugular venous pressure: no JVD Palpation: normal PMI Rate: bradycardic Rhythm: regular rhythm Heart Sounds: S1 normal and S2 normal GI Inspection: normal to inspection Palpation: soft and no hepatosplenomegaly Auscultation: normal bowel sounds Extrem General: no clubbing, cyanosis or edema Objective Labs CBC & Chem 7: 08/10/22 17:15 08/12/22 04:36 A&P - Cardiology (1) Syncope: Assessment/Problem Details: I believe the cause of the syncopal event was either cerebral circulation problems related to significant carotid disease or significant bradycardia. Code(s): R55 - Syncope and collapse Status: Acute Plan: Avoid beta-blockers, Cardizem, verapamil and digoxin. Patient should have eventmonitor upon discharge which I will arrange for. (2) KRISTAN (acute kidney injury): Assessment/Problem Details: Improved significantly since admission Code(s): N17.9 - Acute kidney failure, unspecified Status: Acute Plan: Hydration and avoid nephrotoxic medications (3) HTN (hypertension): Assessment/Problem Details: Currently not under control Code(s): I10 - Essential (primary) hypertension Status: Acute Plan: Increase amlodipine up to 10 mg daily (4) Bilateral carotid artery disease: Assessment/Problem Details: This has been ongoing since 2020 and apparently no action has been taken in thatregard. Code(s): I77.9 - Disorder of arteries and arterioles, unspecified Status: Acute Plan: Aggressive therapy for vascular disease with statin, antiplatelet therapy and stop smoking and control of hypertension (5) Tobacco abuse: Assessment/Problem Details: Patient indicated that 1 pack of cigarette lasted for 5 days. Code(s): Z72.0 - Tobacco use Status: Acute Plan: Tobacco cessation education Documented By: Abdulaziz Alvarez MD, [facility] 2 1100 Signed By: <Electronically signed by MD XENA Alvarez> 08/13/22 [address] [facility] Work Phone: [phone] Consult note Author Sergio Escudero [facility] August 13, 2022 9:29am Note Date/Time August 13, 2022 8 :53am [facility] [address] [place] [address] Vascular Surgery Consult Note Signed Patient: Carley Quintanilla MR#: [id number] : 1940 Acct:[id number] Age/Sex: 81 / F Adm Date: 2 Loc: Room: [address] [place] [address] Type: ADM IN Attending Dr: Dee Kenney MD Copies to: MD Raysa Ortiz II, APRN Matthew T Langenberg, MD Mazhar Rahman, MD~ HPI Consult HPI Reason for consult: Carotid stenosis History of present illness: Ms. Quintanilla is a 81 year old female With past medical history to include hypertension and known carotid occlusive disease. She presented through the emergency department after syncopal event. Carley is a well-known patient to our office only follow-up for her carotid occlusive disease. She was last seen in the office in December and unfortunately did not show for follow-up at her scheduled appointment in June. She has known carotid occlusive disease with right ICA stenosis near 70% and left ICA stenosis 50%. On extensive questioning this morning she admits to overall generalized weakness and fatigue however denies any hemispheric symptoms. Her known carotid occlusive disease has been managed medically with use of daily aspirin and statin medications. Unfortunately, Carley continues to be a daily smoker. cc:: CC: Dee Kenney MD Data of Consult Consult date: 08/13/2022 Requesting Physician: Dee Kenney MD Review of Systems Review of Systems All other systems reviewed & are negative unless noted below or in HPI [facility] Vaccinated for COVID-19?: Yes Medical History HTN (hypertension) Surgical History Hx of tonsillectomy Family History Other HTN (hypertension) Social History Smoking Status: Current every day smoker Tobacco Type: cigarettes Substance Use Type: None Allergies & Active Medications Medications and Allergies Allergies chocolate flavor Allergy (Verified 05/28/21 15:09) Unknown Reaction Exam Physical Exam Vital Signs: Temp Pulse Resp BP Pulse Ox O2 Del Method 97.4 F L 78 20 194/71 H 98 Room Air 08/13/22 08:00 08/13/22 08:00 08/13/22 08:00 08/13/22 08:00 08/13/22 08:00 08/13/22 08:00 Narrative: 81-year-old female, no acute distress. She is resting comfortably in her bed this morning with her eyes closed. She wakes easily to my voice. She is alert and oriented x3. No facial asymmetry, tongue is midline, neck is supple, no JVD, no carotid bruit. Her heart shows regular rate and rhythm, no murmur. Lung sounds are clear throughout bilaterally. Her abdomen is soft, nontender, nondistended. Bilateral lower extremities with no edema. Const General: cooperative and no acute distress Results Labs CBC & Chem 7: 08/10/22 17:15 08/12/22 04:36 Labs: PT 11.0 Seconds (9.0-12.9) 08/10/22 17:15 Microbiology Microbiology: 08/10/22 19:25 Nasopharyngeal SARS-CoV-2, Influenza & RSV (PCR) - Final A&P - Vascular (1) Syncope: Code(s): R55 - Syncope and collapse Status: Acute (2) KRISTAN (acute kidney injury): Code(s): N17.9 - Acute kidney failure, unspecified Status: Acute (3) HTN (hypertension): Code(s): I10 - Essential (primary) hypertension Status: Acute (4) Bilateral carotid artery disease: Plan: This patient has known carotid occlusive disease with right ICA stenosis near 70% and left ICA stenosis 50%. She has been managed medically with use of antiplatelet and statin medications daily. At this point in time, she remains asymptomatic of her carotid occlusive disease. Her statin medication should be up to 40 mg and she should remain on her daily 81 mg aspirin for life. She remains asymptomatic on extensive questioning today, we will continue to follow her along on an outpatient basis and she is reminded of the importance of continued follow-up. We discussed the health risks associated with tobacco smoking and unfortunately she is unmotivated to quit at this time. She understands her risks. Code(s): I77.9 - Disorder of arteries and arterioles, unspecified Status: Acute (5) Tobacco abuse: Code(s): Z72.0 - Tobacco use Status: Acute Documented By: Raysa Robins APRN 08/13/22 0 852 Signed By: <Electronically signed by PARK Robins> 08/13/22 0853 <Electronically signed by Sergio Escudero MD> 08/13/22 0929 [facility] Work Phone: [phone]) 442-897311-06-2022 Progress note Author Dee Kenney [facility] August 12, 2022 4:23pm Note Date/Time August 12, 2022 4 :18pm [facility] [address] [place] [address] Hospitalist Progress Note Signed Patient: Carley Quintanilla MR#: [id number] : 1940 Acct:[id number] Age/Sex: 81 / F Adm Date: 2 Loc: 4N Room: [address] [place] [address] Type: ADM IN Attending Dr: Dee Kenney MD Copies to: ~ Date of Service: 08/12/2022 Subjective Subjective Narrative: Patient examined at bedside currently mentioned feeling sleepy. She did sleep well last night with no overnight event. Heart rate remains in 40s to 50s. Her blood pressure has been fluctuating also. Exam Physical Exam Vital Signs: Temp Pulse Resp BP Pulse Ox O2 Del Method 97.5 F L 58 L 18 120/50 L 96 Room Air 08/12/22 15:30 08/12/22 15:30 08/12/22 15:30 08/12/22 15:30 08/12/22 15:30 08/12/22 15:30 Const Orientation: alert, awake and oriented x3 Resp Effort & Inspection: normal respiratory effort and able to speak in complete sentences Auscultation: no rales, no rhonchi and no wheezes Cardio Rate: regular rate Rhythm: regular rhythm Heart Sounds: S1 normal and S2 normal GI Palpation: soft, not firm, no guarding and nontender Auscultation: normal bowel sounds Neuro General: patient alert, patient awake, patient oriented x3, moves all extremities and no focal motor deficits Cranial Nerves: CN's II-XII intact bilaterally Cognition: normal cognition Speech: speech normal Motor: muscle tone normal throughout and strength 5/5 throughout Sensory Exam: no sensory deficits noted Extrem General: no clubbing, cyanosis or edema and no calf tenderness Objective Lab Results CBC & Chem 7: 08/10/22 17:15 08/12/22 04:36 Meds Allergies and Active Meds Allergies chocolate flavor Allergy (Verified 05/28/21 15:09) Unknown Reaction Active Meds: Active Medications Generic Name Dose Route Start Last Admin Trade Name Radha PRN Reason Stop Dose Admin Acetaminophen 650 mg 08/10/22 20:17 Acetaminophen 325 Mg Tablet PO 08/10/23 20:16 Q6HR PRN Pain Scale 1 - 3 or fever Amlodipine Besylate 5 mg 08/12/22 11:00 08/12/22 11:46 Amlodipine 5 Mg Tablet PO 08/12/23 10:59 5 mg DAILY CARRI Administration Aspirin 81 mg 08/11/22 09:00 08/12/22 09:09 Aspirin 81 Mg Tablet. PO 08/11/23 08:59 81 mg DAILY CARRI Administration Atorvastatin Calcium 20 mg 08/11/22 22:00 08/11/22 22:42 Atorvastatin 20 Mg Tablet PO 08/11/23 21:59 Not Given QHS CARRI Heparin Sodium (Porcine) 5,000 unit 08/10/22 21:00 08/12/22 09:09 Heparin 5,000 Unit/Ml Vial SUBCUT 08/10/23 20:59 5,000 unit Q12HR CARRI Administration Hydralazine HCl 10 mg 08/10/22 20:17 08/11/22 21:25 Hydralazine 20 Mg/Ml Vial IV-PUSH 08/10/23 20:16 10 mg Q4H PRN Administration Hypertension Hydralazine HCl 25 mg 08/12/22 14:00 08/12/22 15:00 Hydralazine 25 Mg Tablet PO 08/12/23 13:59 25 mg TID CARRI Administration Sodium Chloride 1,000 mls @ 75 mls/hr 08/10/22 20:30 08/12/22 11:46 0.9% Sodium Chloride 1,000 Ml IV 08/10/23 20:29 75 mls/hr .[id number] CARRI Administration Levothyroxine Sodium 75 mcg 08/11/22 06:30 08/12/22 06:11 Levothyroxine 75 Mcg Tablet PO 08/11/23 06:29 75 mcg DAILY.0630 CARRI Administration Lisinopril 20 mg 08/11/22 22:30 08/12/22 09:09 Lisinopril 20 Mg Tablet PO 08/11/23 22:29 20 mg BID CARRI Administration Nicotine 1 each 08/11/22 09:00 08/12/22 09:09 Nicotine Patch 21 Mg/24hr 1 Each Patch.Td24 TRANSDERML 08/11/23 08:59 Not Given DAILY CARRI Omeprazole 20 mg 08/11/22 09:00 08/12/22 09:09 Omeprazole 20 Mg Capsule.Dr PO 08/11/23 08:59 20 mg DAILY CARRI Administration Paroxetine HCl 40 mg 08/11/22 09:00 08/12/22 09:09 Paroxetine 20 Mg Tablet PO 08/11/23 08:59 40 mg DAILY CARRI Administration A&P - Hospitalist Assessment/Plan (1) Syncope: (2) KRISTAN (acute kidney injury): (3) HTN (hypertension): (4) Bilateral carotid artery disease: (5) Tobacco abuse: Plan Pending carotid Doppler but given history of carotid artery disease we will consult vascular surgery. Cardizem has been discontinued with heart rate remaining in 40s to 50s. Her blood pressure has been fluctuant and started on hydralazine with amlodipine by cardiology. Avoid any blocking agent. Avoid clonidine as well. Renal function has improved and will discontinue IV fluids. Continue heparin for DVT prophylaxis. Continue PT/OT. Documented By: Dee Kenney MD 08/12/22 1616 Signed By: <Electronically signed by Dee Kenney MD> 08/12/22 1623 [facility] Work Phone: 1(613) 607-486711-06-2022 Progress note Author Abdulaziz Alvarez [facility] August 12, 2022 10:01am Note Date/Time August 12, 2022 1 0:01am [facility] [address] [place] [address] Cardiology Progress Note Signed Patient: Carley Quintanilla MR#: [id number] : 1940 Acct:[id number] Age/Sex: 81 / F Adm Date: 2 Loc: Room: [address] [place] [address] Type: ADM IN Attending Dr: Dee Kenney MD Copies to: ~ Date of Service: 08/12/2022 Subjective Principal diagnosis: Syncope/bradycardia Interval history: Patient has no further events, she is hypertensive this morning since some of her medications have been placed on hold. She has had no neurological symptoms. Has not been seen by vascular surgery. I reviewed the carotid scan images and the findings are consistent with 70 to 99% stenosis on the right internal carotid artery and 50 to 69% stenosis in the left internal carotid artery. Exam Physical Exam Vital Signs: Temp Pulse Resp BP Pulse Ox O2 Del Method 97.8 F 72 18 170/92 H 97 Room Air 08/12/22 08:00 08/12/22 08:00 08/12/22 08:00 08/12/22 08:00 08/12/22 08:00 08/12/22 08:00 Const General: cooperative, healthy appearing, comfortable and no acute distress Nutritional Appearance: average body habitus Orientation: alert, awake and oriented x3 HEENT Head: normal to inspection, normocephalic and atraumatic Ears: hearing grossly normal bilaterally Nose: external nose normal Face and sinus: normal facial exam Eyes General: appearance normal, both eyes and all related structures Conjunctivae: conjunctivae normal Pupils: PERRL Neck Neck: normal visual inspection, full ROM, no lymphadenopathy, trachea midline and supple Neck mass: No Thyroid: thyroid normal Carotids: normal carotid upstroke Resp Effort & Inspection: normal respiratory effort Auscultation: clear to auscultation bilaterally Cardio Jugular venous pressure: no JVD Palpation: normal PMI Rate: bradycardic Rhythm: regular rhythm Heart Sounds: S1 normal and S2 normal GI Inspection: normal to inspection Palpation: soft and no hepatosplenomegaly Auscultation: normal bowel sounds Extrem General: no clubbing, cyanosis or edema Objective Labs CBC & Chem 7: 08/10/22 17:15 08/12/22 04:36 Labs: Laboratory Results - last 24 hr 08/12/22 04:36 PHA Creatinine Clear 35.61 Sodium 141 Potassium 3.7 Chloride 110 Carbon Dioxide 23.4 Anion Gap 11.3 BUN 28 H Creatinine 1.16 H Est GFR ( Amer) 54 Est GFR (Non-Af Amer) 45 Glucose 95 Calcium 8.6 A&P - Cardiology (1) Syncope: Assessment/Problem Details: I believe the cause of the syncopal event was either cerebral circulation problems related to significant carotid disease or significant bradycardia. Code(s): R55 - Syncope and collapse Status: Acute Plan: Avoid beta-blockers, Cardizem, verapamil and digoxin. Await vascular surgery recommendations (2) KRISTAN (acute kidney injury): Assessment/Problem Details: Improved significantly since admission Code(s): N17.9 - Acute kidney failure, unspecified Status: Acute Plan: Hydration and avoid nephrotoxic medications (3) HTN (hypertension): Assessment/Problem Details: Currently not under control Code(s): I10 - Essential (primary) hypertension Status: Acute Plan: Utilize amlodipine 5 mg daily along with hydralazine 25 mg 3 times daily. I believe at this stage will avoid clonidine therapy especially the high dose thatwas prescribed and continue lisinopril. Hydrochlorothiazide can be utilized as additional therapy if needed (4) Bilateral carotid artery disease: Assessment/Problem Details: This has been ongoing since 2020 and apparently no action has been taken in thatregard. Code(s): I77.9 - Disorder of arteries and arterioles, unspecified Status: Acute Plan: Aggressive therapy for vascular disease with statin along with antiplatelet therapy and consult vascular surgery (5) Tobacco abuse: Assessment/Problem Details: Patient indicated that 1 pack of cigarette lasted for 5 days. Code(s): Z72.0 - Tobacco use Status: Acute Plan: Tobacco cessation education Documented By: Abdulaziz Alvarez MD, [facility] 2 0958 Signed By: <Electronically signed by MD XENA Alvarez> 08/12/22 1001 [facility] Work Phone: [phone]) 251-453011-05-2022 Progress note Author Dee Kenney [facility] August 11, 2022 2:19pm Note Date/Time August 11, 2022 2 :15pm [facility] [address] [place] [address] Hospitalist Progress Note Signed Patient: Carley Quintanilla MR#: [id number] : 1940 Acct:[id number] Age/Sex: 81 / F Adm Date: 2 Loc: Room: [address] [place] [address] Type: ADM IN Attending Dr: Dee Kenney MD Copies to: ~ Date of Service: 08/11/2022 Subjective Subjective Narrative: Patient examined bedside and currently appears comfortable. No overnight event and denies dizziness. Noted to have heart rate in 40s to 50s. Exam Physical Exam Vital Signs: Temp Pulse Resp BP Pulse Ox O2 Del Method 97.6 F 48 L 16 129/75 100 Room Air 08/11/22 07:51 08/11/22 11:22 08/11/22 11:22 08/11/22 11:22 08/11/22 11:22 08/11/22 11:22 Const Orientation: alert, awake and oriented x3 Resp Effort & Inspection: normal respiratory effort and able to speak in complete sentences Auscultation: no rales, no rhonchi and no wheezes Cardio Rate: regular rate Rhythm: regular rhythm Heart Sounds: S1 normal and S2 normal GI Palpation: soft, not firm, no guarding and nontender Auscultation: normal bowel sounds Neuro General: patient alert, patient awake, patient oriented x3, moves all extremities and no focal motor deficits Cranial Nerves: CN's II-XII intact bilaterally Cognition: normal cognition Speech: speech normal Motor: muscle tone normal throughout and strength 5/5 throughout Sensory Exam: no sensory deficits noted Extrem General: no clubbing, cyanosis or edema and no calf tenderness Psych Appearance: grossly normal Objective Lab Results CBC & Chem 7: 08/10/22 17:15 08/11/22 05:43 Microbiology Results Microbiology 08/10/22 19:25 Nasopharyngeal SARS-CoV-2, Influenza & RSV (PCR) - Final Meds Allergies and Active Meds Allergies chocolate flavor Allergy (Verified 05/28/21 15:09) Unknown Reaction Active Meds: Active Medications Generic Name Dose Route Start Last Admin Trade Name Freq PRN Reason Stop Dose Admin Acetaminophen 650 mg 08/10/22 20:17 Acetaminophen 325 Mg Tablet PO 08/10/23 20:16 Q6HR PRN Pain Scale 1 - 3 or fever Aspirin 81 mg 08/11/22 09:00 08/11/22 09:07 Aspirin 81 Mg Tablet.Dr PO 08/11/23 08:59 81 mg DAILY CARRI Administration Atorvastatin Calcium 80 mg 08/10/22 22:00 Atorvastatin 80 Mg Tablet PO 08/10/23 21:59 QHS CARRI Heparin Sodium (Porcine) 5,000 unit 08/10/22 21:00 08/11/22 09:08 Heparin 5,000 Unit/Ml Vial SUBCUT 08/10/23 20:59 5,000 unit Q12HR CARRI Administration Hydralazine HCl 10 mg 08/10/22 20:17 Hydralazine 20 Mg/Ml Vial IV-PUSH 08/10/23 20:16 Q4H PRN Hypertension Sodium Chloride 1,000 mls @ 75 mls/hr 08/10/22 20:30 08/11/22 11:25 0.9% Sodium Chloride 1,000 Ml IV 08/10/23 20:29 75 mls/hr .[id number] CARRI Administration Levothyroxine Sodium 75 mcg 08/11/22 06:30 08/11/22 06:16 Levothyroxine 75 Mcg Tablet PO 08/11/23 06:29 75 mcg DAILY.0630 CARRI Administration Nicotine 1 each 08/11/22 09:00 08/11/22 09:07 Nicotine Patch 21 Mg/24hr 1 Each Patch.Td24 TRANSDERML 08/11/23 08:59 Not Given DAILY CARRI Omeprazole 20 mg 08/11/22 09:00 08/11/22 09:07 Omeprazole 20 Mg Capsule. PO 08/11/23 08:59 20 mg DAILY CARRI Administration Paroxetine HCl 40 mg 08/11/22 09:00 08/11/22 09:07 Paroxetine 20 Mg Tablet PO 08/11/23 08:59 40 mg DAILY CARRI Administration A&P - Hospitalist Assessment/Plan (1) Syncope: (2) KRISTAN (acute kidney injury): (3) HTN (hypertension): (4) Bilateral carotid artery disease: (5) Tobacco abuse: Plan Appreciate cardiology consulted we will continue to hold diltiazem as likely contributing to bradycardia. Continue gentle hydration with improvement in renal function. TSH level 2.2. Continue to hold clonidine and lisinopril to prevent hypotension. Pending carotid Doppler result. Echocardiogram showing preserved ejection fraction with mild diastolic dysfunction. No wall motion abnormality seen. On heparin for DVT prophylaxis. Continue levothyroxine, aspirin, statin and PT/OT. Given her syncope with significant bradycardia we will continue to monitor inpatient to rule out any underlying cardiac arrhythmia or significant bradycardia. Noted to have small pause on telemetry last night. Documented By: Dee Kenney MD 08/11/221412 Signed By: <Electronically signed by Dee Kenney MD> 08/11/22 [facility] [facility] Work Phone: [phone]) 720-194811-05-2022 Consult note Author Abdulaziz Alvarez [facility] August 11, 2022 1:13pm Note Date/Time August 11, 2022 1 :09pm [facility] [address] [place] [address] Cardiology Consult Note Signed Patient: Carley Quintanilla MR#: [id number] : 1940 Acct:[id number] Age/Sex: 81 / F Adm Date: 2 Loc: 4N Room: [address] [place] [address] Type: ADM IN Attending Dr: Dee Kenney MD Copies to: MD Abdulaziz Ortiz II, MD, [facility] Dee Kenney MD~ Cardiology HPI History of Present Illness Consult Date: 08/11/22 Reason for Consult: Syncope HPI: Ms. Quintanilla is a 81 year old female who is being seen at the request of the hospitalist for assessment and management of syncope. The patient is a good historian and indicated that as she was sitting at a chair having her hair taking care of she suddenly started yawning and then passed out but did not falloff the chair. She had no seizure no diaphoresis and her color looked normal. There was no incontinence. The squad was immediately reporting and she was bradycardic and was given atropine. She quickly responded. When she presented to the hospital she had sinus bradycardia heart rate below 50 bpm. Her blood pressure was normal. She denied any chest pain or feeling dizzy or lightheaded. She denies any symptoms preceding the syncopal event. She had 1 event of similar nature over a year ago which was attributed to being out in the sun for some time. At that time she had carotid scan which revealed over 70% stenosis in the right internal carotid artery and less than 70% stenosis in the left internal carotid artery. The patient did not have any vascular intervention andhas not been following with vascular doctors. She has a history of hypertensionmanaged with Dr. Kali Maharaj in [facility]. She has been on diltiazem 360 mg daily. The patient has been stable since admission heart rate in the 50s. Diltiazem has been withheld Review of Systems Review of Systems Review of systems: 11 point review of system otherwise was normal. [facility] Vaccinated for COVID-19?: Yes Medical History (Updated 08/11/22 @ 13:09 by Abdulaziz Alvarez MD) HTN (hypertension) Surgical History Hx of tonsillectomy Family History Other HTN (hypertension) Social History Smoking Status: Current every day smoker Tobacco Type: cigarettes Substance Use Type: None Meds Medications and Allergies Allergies chocolate flavor Allergy (Verified 05/28/21 15:09) Unknown Reaction Home Medications atorvastatin 80 mg tablet 80 mg PO QHS 05/28/21 [History Confirmed 08/10/22] diltiazem HCl 360 mg capsule,24 hr,extended release (Tiadylt ER) 360 mg PO DAILY05/28/21 [History Confirmed 08/10/22] levothyroxine 75 mcg tablet 75 mcg PO DAILY.0630 05/28/21 [History Confirmed 08/10/22] aspirin 81 mg tablet,delayed release (Gregory Low Dose Aspirin) 81 mg PO DAILY #30tabs 05/30/21 [Rx Confirmed 08/10/22] cephalexin 500 mg capsule 500 mg PO BID 3 days #6 caps 05/30/21 [Rx Confirmed 08/10/22] lisinopril 20 mg tablet 20 mg PO BID 30 days #60 tabs 05/30/21 [Rx Confirmed 08/10/22] nicotine 21 mg/24 hr daily transdermal patch 1 ea transdermal DAILY 30 days 05/30/21 [Rx Confirmed 08/10/22] alendronate 70 mg tablet 70 mg PO DAILY 08/10/22 [History Confirmed 08/10/22] clonidine HCl 0.3 mg tablet 0.3 mg PO DAILY 08/10/22 [History Confirmed 08/10/22] diltiazem HCl 360 mg capsule,24 hr,extended release (Tiadylt ER) 360 mg PO DAILY08/10/22 [History Confirmed 08/10/22] pantoprazole 40 mg tablet,delayed release 40 mg PO DAILY 08/10/22 [History Confirmed 08/10/22] paroxetine HCl 40 mg tablet 40 mg PO DAILY 08/10/22 [History Confirmed 08/10/22] simvastatin 40 mg tablet 40 mg PO DAILY 08/10/22 [History Confirmed 08/10/22] Exam Physical Exam Vital Signs: Temp Pulse Resp BP Pulse Ox O2 Del Method 97.6 F 48 L 16 129/75 100 Room Air 08/11/22 07:51 08/11/22 11:22 08/11/22 11:22 08/11/22 11:22 08/11/22 11:22 08/11/22 11:22 Const General: cooperative, healthy appearing, comfortable and no acute distress Nutritional Appearance: average body habitus Orientation: alert, awake and oriented x3 HEENT Head: normal to inspection, normocephalic and atraumatic Ears: hearing grossly normal bilaterally Nose: external nose normal Face and sinus: normal facial exam Eyes General: appearance normal, both eyes and all related structures Conjunctivae: conjunctivae normal Pupils: PERRL Neck Neck: normal visual inspection, full ROM, no lymphadenopathy, trachea midline and supple Neck mass: No Thyroid: thyroid normal Carotids: normal carotid upstroke Resp Effort & Inspection: normal respiratory effort Auscultation: clear to auscultation bilaterally Cardio Jugular venous pressure: no JVD Palpation: normal PMI Rate: bradycardic Rhythm: regular rhythm Heart Sounds: S1 normal and S2 normal GI Inspection: normal to inspection Palpation: soft and no hepatosplenomegaly Auscultation: normal bowel sounds Extrem General: no clubbing, cyanosis or edema Results Labs CBC & CMP: 08/10/22 17:15 08/11/22 05:43 Lab results: Cardiac Enzymes 08/10/22 08/10/22 Range/Units 17:15 17:15 AST 16 (10-42) U/L B-Natriuretic Peptide 29.0 (5-100) pg/mL CBC 08/10/22 Range/Units 17:15 RBC 4.36 (3.60-5.00) x10E6/uL Hgb 13.3 (11.8-15.4) g/dL Hct 40.9 (34.0-46.4) % Plt Count 193 (150-450) x10E3/uL Neut # (Auto) 8.3 H (1.8-7.7) x10E3/uL Lymph # (Auto) 0.9 L (1.00-4.8) x10E3/uL [place] # (Auto) 0.6 (0.0-0.8) x10E3/uL Eos # (Auto) 0.1 (0.0-0.45) x10E3/uL Baso # (Auto) 0.1 (0.0-0.2) x10E3/uL Comprehensive Metabolic Panel 08/10/22 08/11/22 Range/Units 17:15 05:43 Sodium 137 138 (136-146) mmol/L Potassium 4.5 4.2 (3.5-5.1) mmol/L Chloride 105 108 (95-114) mmol/L Carbon Dioxide 22.8 22.6 (22.0-30.0) mmol/L BUN 39 H 39 H (9-23) mg/dL Creatinine 1.77 H 1.58 H (0.44-1.03) mg/dL Glucose 105 H 87 (70-100) mg/dL Calcium 9.0 8.9 (8.2-10.2) mg/dL AST 16 (10-42) U/L ALT 12 (10-60) U/L Alkaline Phosphatase 52 (32-92) U/L Total Protein 6.0 L (6.1-7.9) gm/dL Albumin 3.3 (3.2-5.5) gm/dL Intake and Output 08/10/22 08/11/22 08/11/22 23:59 07:59 15:59 Intake Total 1480 / 1480 1959 Output Total 400 / 400 Balance 1080 / 1080 / 1959 Intake: IV 1000 / 1000 1000 / 1000 Sodium Chloride 0.9% 1,000 ml 1 1000 / 1000 1000 / 1000 ,000 ml @ 75 mls/hr IV .[id number] CARRI Rx#:[id number] Oral 480 / 480 960 / 960 Output: Urine 400 / 400 Other: # Voids 1 # Unmeasured Voids 1 1 Weight 67.2 kg 67.2 kg Date of Last Bowel Movement 08/10/22 08/10/22 Patient Weight 08/11/22 23:59 Weight 67.2 kg Lab 08/10/22 17:15 PT 11.0 INR 1.0 A&P - Cardiology (1) Syncope: Assessment/Problem Details: I believe the cause of the syncopal event was either cerebral circulation problems related to significant carotid disease or significant bradycardia. Plan: Discontinue diltiazem and if necessary use of the medication for hypertension such as amlodipine, await vascular evaluation of current carotid duplex scan which is clearly abnormal and still again indicating more than 70% stenosis in the right internal carotid artery. Patient will benefit from being on statin therapy. Aspirin should be utilized Code(s): R55 - Syncope and collapse (2) KRISTAN (acute kidney injury): Plan: Hydration and avoid nephrotoxic medications Code(s): N17.9 - Acute kidney failure, unspecified (3) HTN (hypertension): Assessment/Problem Details: Currently under control Plan: Utilize amlodipine to replace Cardizem for hypertension Code(s): I10 - Essential (primary) hypertension (4) Bilateral carotid artery disease: Assessment/Problem Details: This has been ongoing since 2020 and apparently no action has been taken in thatregard. Plan: Aggressive therapy for vascular disease with statin along with antiplatelet therapy and consult vascular surgery Code(s): I77.9 - Disorder of arteries and arterioles, unspecified (5) Tobacco abuse: Assessment/Problem Details: Patient indicated that 1 pack of cigarette lasted for 5 days. Plan: Tobacco cessation education Code(s): Z72.0 - Tobacco use Documented By: Abdulaziz Alvarez MD, [facility] 2 1304 Signed By: <Electronically signed by MD XENA Alvarez> 08/11/22 [address] [facility] Work Phone: [phone]) [phone] History and physical note Author Dee Kenney [facility] August 10, 2022 8:17pm Note Date/Time August 10, 2022 8 :03pm [facility] [address] [place] [address] Hospitalist H&P Signed Patient: Carley Quintanilla MR#: [id number] : 1940 Acct:[id number] Age/Sex: 81 / F Adm Date: 2 Loc: Room: [address] [place] [address] Type: ADM IN Attending Dr: Dee Kenney MD Copies to: MD Dee Ortiz II, MD~ HPI DATE OF EXAMINATION: 08/10/22 CHIEF COMPLAINT: Syncopal episode. HISTORY OF PRESENT ILLNESS: Patient is a pleasant 81-year-old female who is a resident of assisted living with past medical history of hypertension, hyperlipidemia and other medical comorbidities. She was brought to the emergency room after having a syncopal episode. She has been in her normal state of health and denies recent infection, fever, chills, chest pain, headache, dizziness or any other complaint. 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 Patient cannot recall the event. As per the the sister while sitting getting her hair done she started yawning and then passed out. There was no seizure activity, tongue bite or incontinence. As per the EMS note she was found unresponsive while sitting on chair. She was given atropine with a positive response and became more awake and responsive since she was noted to be bradycardic and hypotensive but details not available at this time. Patient had similar episodelast year. Her echocardiogram at that time showed normal wall motion with EF more than 70%. She was evaluated by cardiology and was thought to be related from heat exposure and dehydration. There was recommendation for outpatient stress test. In the emergency room her labs showing creatinine above her baseline without other significant abnormality. CT head negative for acute abnormality but showing remote infarct which are unchanged from prior scan. During my evaluation patient is awake and oriented. She denies any complaint. Her heart rate was noted to be in 50s sinus bradycardia which improved to 60s while talking. Review of Systems Review of Systems Review of systems: 12 point review of system is unremarkable other than mentioned in history of presenting illness [facility] Medical History (Updated 08/10/22 @ 20:14 by Dee Kenney MD) HTN (hypertension) Surgical History Hx of tonsillectomy Family History Other HTN (hypertension) Social History Smoking Status: Current every day smoker Tobacco Type: cigarettes Meds Medications and Allergies Allergies chocolate flavor Allergy (Verified 05/28/21 15:09) Unknown Reaction Home Medications atorvastatin 80 mg tablet 80 mg PO QHS 05/28/21 [History Confirmed 08/10/22] diltiazem HCl 360 mg capsule,24 hr,extended release (Tiadylt ER) 360 mg PO DAILY05/28/21 [History Confirmed 08/10/22] levothyroxine 75 mcg tablet 75 mcg PO DAILY.0630 05/28/21 [History Confirmed 08/10/22] aspirin 81 mg tablet,delayed release (Gregory Low Dose Aspirin) 81 mg PO DAILY #30tabs 05/30/21 [Rx Confirmed 08/10/22] cephalexin 500 mg capsule 500 mg PO BID 3 days #6 caps 05/30/21 [Rx Confirmed 08/10/22] lisinopril 20 mg tablet 20 mg PO BID 30 days #60 tabs 05/30/21 [Rx Confirmed 08/10/22] nicotine 21 mg/24 hr daily transdermal patch 1 ea transdermal DAILY 30 days 05/30/21 [Rx Confirmed 08/10/22] alendronate 70 mg tablet 70 mg PO DAILY 08/10/22 [History Confirmed 08/10/22] clonidine HCl 0.3 mg tablet 0.3 mg PO DAILY 08/10/22 [History Confirmed 08/10/22] diltiazem HCl 360 mg capsule,24 hr,extended release (Tiadylt ER) 360 mg PO DAILY08/10/22 [History Confirmed 08/10/22] pantoprazole 40 mg tablet,delayed release 40 mg PO DAILY 08/10/22 [History Confirmed 08/10/22] paroxetine HCl 40 mg tablet 40 mg PO DAILY 08/10/22 [History Confirmed 08/10/22] simvastatin 40 mg tablet 40 mg PO DAILY 08/10/22 [History Confirmed 08/10/22] Exam Physical Exam Vital Signs: Temp Pulse Resp BP Pulse Ox O2 Del Method 97.9 F 63 20 143/64 H 99 Room Air 08/10/22 19:19 08/10/22 19:19 08/10/22 19:19 08/10/22 19:19 08/10/22 19:19 08/10/22 19:19 Const General: cooperative Orientation: alert, awake and oriented x3 HEENT Head: normal to inspection, no palpable skull fracture, normocephalic and atraumatic Eyes Pupils: PERRL EOM: EOM intact bilaterally and No nystagmus Neck Neck: normal visual inspection and full ROM Resp Effort & Inspection: normal respiratory effort and able to speak in complete sentences Auscultation: no rales, no rhonchi and no wheezes Cardio Rate: regular rate Rhythm: regular rhythm Heart Sounds: S1 normal and S2 normal GI Palpation: soft, not firm, no guarding and nontender Auscultation: normal bowel sounds Musc Cervical Spine: normal cervical lordosis and cervical ROM normal Neuro General: patient alert, patient awake, patient oriented x3, moves all extremities and no focal motor deficits Cranial Nerves: CN's II-XII intact bilaterally Cognition: normal cognition Speech: speech normal Motor: muscle tone normal throughout and strength 5/5 throughout Sensory Exam: no sensory deficits noted Extrem General: no clubbing, cyanosis or edema and no calf tenderness Psych Appearance: grossly normal Results Lab Results Labs: Laboratory Last Values Corrected WBC 9.9 X10E3/uL (3.8-11.6) 08/10/22 17:15 Uncorrected WBC Count 9.9 x10E3/uL (4.5-11.0) 08/10/22 17:15 RBC 4.36 x10E6/uL (3.60-5.00) 08/10/22 17:15 Hgb 13.3 g/dL (11.8-15.4) 08/10/22 17:15 Hct 40.9 % (34.0-46.4) 08/10/22 17:15 MCV 94.0 fl (80-100) 08/10/22 17:15 MCH 30.6 pg (24.7-34.3) 08/10/22 17:15 MCHC 32.6 g/dL (32.0-35.0) 08/10/22 17:15 RDW 13.4 % (11.9-15.3) 08/10/22 17:15 Plt Count 193 x10E3/uL (150-450) 08/10/22 17:15 MPV 10.2 fl (6.3-10.7) 08/10/22 17:15 Neut % (Auto) 83.6 % (.) 08/10/22 17:15 Lymph % (Auto) 9.5 % (.) 08/10/22 17:15 [place] % (Auto) 5.7 % (.) 08/10/22 17:15 Eos % (Auto) 0.7 % (.) 08/10/22 17:15 Baso % (Auto) 0.5 % (.) 08/10/22 17:15 Neut # (Auto) 8.3 x10E3/uL (1.8-7.7) H 08/10/22 17:15 Lymph # (Auto) 0.9 x10E3/uL (1.00-4.8) L 08/10/22 17:15 [place] # (Auto) 0.6 x10E3/uL (0.0-0.8) 08/10/22 17:15 Eos # (Auto) 0.1 x10E3/uL (0.0-0.45) 08/10/22 17:15 Baso # (Auto) 0.1 x10E3/uL (0.0-0.2) 08/10/22 17:15 Nucleated RBC % (auto) 0.0 % (0-0.5) 08/10/22 17:15 PT 11.0 Seconds (9.0-12.9) 08/10/22 17:15 INR 1.0 08/10/22 17:15 PHA Creatinine Clear 25.74 08/10/22 17:15 Sodium 137 mmol/L (136-146) 08/10/22 17:15 Potassium 4.5 mmol/L (3.5-5.1) 08/10/22 17:15 Chloride 105 mmol/L (95-114) 08/10/22 17:15 Carbon Dioxide 22.8 mmol/L (22.0-30.0) 08/10/22 17:15 Anion Gap 13.7 mEq/L (6.0-15.0) 08/10/22 17:15 BUN 39 mg/dL (9-23) H 08/10/22 17:15 Creatinine 1.77 mg/dL (0.44-1.03) H 08/10/22 17:15 Est GFR ( Amer) 33 mL/Min 08/10/22 17:15 Est GFR (Non-Af Amer) 28 mL/Min 08/10/22 17:15 Glucose 105 mg/dL (70-100) H 08/10/22 17:15 POC Glucose 101 mg/dl 08/10/22 16:35 Calcium 9.0 mg/dL (8.2-10.2) 08/10/22 17:15 Magnesium 2.2 mg/dL (1.6-2.6) 08/10/22 17:15 Total Bilirubin 0.5 mg/dL (0.3-1.2) 08/10/22 17:15 AST 16 U/L (10-42) 08/10/22 17:15 ALT 12 U/L (10-60) 08/10/22 17:15 Alkaline Phosphatase 52 U/L (32-92) 08/10/22 17:15 Troponin I High Sens 9 pg/mL (0-15) 08/10/22 17:15 B-Natriuretic Peptide 29.0 pg/mL (5-100) 08/10/22 17:15 Total Protein 6.0 gm/dL (6.1-7.9) L 08/10/22 17:15 Albumin 3.3 gm/dL (3.2-5.5) 08/10/22 17:15 Globulin 2.7 gm/dL 08/10/22 17:15 Albumin/Globulin Ratio 1.2 08/10/22 17:15 Urine Color Yellow (Yellow) 08/10/22 19:20 Urine Appearance Clear (Clear) 08/10/22 19:20 Urine pH 5.5 (5.0-9.0) 08/10/22 19:20 Ur Specific [place] 1.014 (1.001-1.030) 08/10/22 19:20 Urine Protein Negative mg/dL (Negative) 08/10/22 19:20 Urine Glucose (UA) Normal mg/dL (Normal) 08/10/22 19:20 Urine Ketones Trace (Negative) H 08/10/22 19:20 Urine Occult Blood Negative (Negative) 08/10/22 19:20 Urine Nitrite Negative (Negative) 08/10/22 19:20 Urine Bilirubin Negative (Negative) 08/10/22 19:20 Urine Urobilinogen Normal mg/dL (Normal) 08/10/22 19:20 Ur Leukocyte Esterase Negative (Negative) 08/10/22 19:20 A&P - Hospitalist Assessment/Plan (1) Syncope: (2) KRISTAN (acute kidney injury): (3) HTN (hypertension): Plan Patient brought to the emergency room after having a syncopal episode. As per the EMS note she was found to be bradycardic and hypotensive which improved after getting atropine. Rhythm strip not available. List of medication does include diltiazem and possibility of symptomatic bradycardia cannot be ruled out. Patient will be kept in the hospital for further management. We will holddiltiazem and consult cardiology for further evaluation. Her labs are showing elevated creatinine. Gentle hydration. Check for orthostasis. Check TSH level. Consult PT/OT. DVT prophylaxis. Time spent planning advance care (# min): 15 Advance directives explained/discussed with: Patient Discussed CODE STATUS with patient and her sister and she wishes to be full code. Documented By: Dee Kenney MD 08/10/222001 Signed By: <Electronically signed by Dee Kenney MD> 08/10/222016 [facility] Work Phone: Evaluation noteNo InformationNort Taste Guru Other Evaluation note* Diagnosis Onset Date Resolution Status KRISTAN (acute kidney injury) ac jen Bilateral carotid artery disease acute HTN (hypertension) acute Syncope acute Tobacco abuse acute [facility] Work Phone: Evaluation noteNo assessment information available [facility] Work Phone: Evaluation note* Diagnosis PVD (peripheral vascular disease) ([facility] Primary Unspecified peripheral vascular disease Onychomycosis Dermatophytosis of nail Toe pain, left Pain in soft tissues of limb Toe pain, right Pain in soft tissues of limb Venous insufficiency Unspecified venous (peripheral) insufficiency documented in this encounter [facility] N[facility]ative - Reported* Type Description Date Medical History CAROTID STENOSIS BILATERAL Medical History hypertension Medical History hypercholesterolemia Medical History acid reflux Surgical History Foot Surgery Hospitalization History hypertension from [facility] Other History general Narrative - Reported* Type Description Date Medical History CAROTID STENOSIS BILATERAL Medical History hypertension Medical History hypercholesterolemia Medical History acid reflux Surgical History Foot Surgery Surgical History tonsillectomy Surgical History cataract Hospitalization History hypertension from [facility] Other Progress note Author Abdulaziz Alvarez [facility] August 14, 2022 5:26pm Note Date/Time August 14, 2022 5 :26pm [facility] [address] [place] [address] Cardiology Progress Note Signed Patient: Carley Quintanilla MR#: [id number] : 1940 Acct:[id number] Age/Sex: 81 / F Adm Date: 2 Loc: Room: [address] [place] [address] Type: DIS IN Attending Dr: Dee Kenney MD Copies to: ~ Date of Service: 08/14/2022 Subjective Principal diagnosis: Syncope/bradycardia Interval history: Patient is stable but remains hypertensive. She will be discharged home today. Discussed with the patient and her sister the need for further cardiac investigation with 30-day event monitor and follow-up with me after that. Presently we do not have indication for pacemaker Exam Physical Exam Vital Signs: Temp Pulse Resp BP Pulse Ox O2 Del Method 98.3 F 79 16 177/71 H 98 Room Air 08/14/22 12:00 08/14/22 12:00 08/14/22 12:00 08/14/22 12:47 08/14/22 12:00 08/14/22 12:00 Const General: cooperative, healthy appearing, comfortable and no acute distress Nutritional Appearance: average body habitus Orientation: alert, awake and oriented x3 HEENT Head: normal to inspection, normocephalic and atraumatic Ears: hearing grossly normal bilaterally Nose: external nose normal Face and sinus: normal facial exam Eyes General: appearance normal, both eyes and all related structures Conjunctivae: conjunctivae normal Pupils: PERRL Neck Neck: normal visual inspection, full ROM, no lymphadenopathy, trachea midline and supple Neck mass: No Thyroid: thyroid normal Carotids: normal carotid upstroke Resp Effort & Inspection: normal respiratory effort Auscultation: clear to auscultation bilaterally Cardio Jugular venous pressure: no JVD Palpation: normal PMI Rate: bradycardic Rhythm: regular rhythm Heart Sounds: S1 normal and S2 normal GI Inspection: normal to inspection Palpation: soft and no hepatosplenomegaly Auscultation: normal bowel sounds Extrem General: no clubbing, cyanosis or edema Objective Labs CBC & Chem 7: 08/10/22 17:15 08/12/22 04:36 A&P - Cardiology (1) Syncope: Assessment/Problem Details: I believe the cause of the syncopal event was either cerebral circulation problems related to significant carotid disease or significant bradycardia. Code(s): R55 - Syncope and collapse Status: Acute Plan: Avoid beta-blockers, Cardizem, verapamil and digoxin. Patient should have eventmonitor upon discharge which I will arrange for. (2) KRISATN (acute kidney injury): Assessment/Problem Details: Improved significantly since admission Code(s): N17.9 - Acute kidney failure, unspecified Status: Acute Plan: Hydration and avoid nephrotoxic medications (3) HTN (hypertension): Assessment/Problem Details: Currently not under control Code(s): I10 - Essential (primary) hypertension Status: Acute Plan: Increase hydralazine up to 50 mg 3 times daily (4) Bilateral carotid artery disease: Assessment/Problem Details: This has been ongoing since 2020 and apparently no action has been taken in thatregard. Code(s): I77.9 - Disorder of arteries and arterioles, unspecified Status: Acute Plan: Aggressive therapy for vascular disease with statin, antiplatelet therapy and stop smoking and control of hypertension (5) Tobacco abuse: Assessment/Problem Details: Patient indicated that 1 pack of cigarette lasted for 5 days. Code(s): Z72.0 - Tobacco use Status: Acute Plan: Tobacco cessation education Documented By: Abdulaziz Alvarez MD, [facility] 2 1725 Signed By: <Electronically signed by MD XENA Alvarez> 08/14/22 1726 [facility] Work Phone: Summary Purpose Family History No Family History Records Found Relationship Condition Age at Onset Recorded Date/T mark Not Specified Hypertension Unknown Unknown Family Member Name Dates Details Family history of myocardial infarction: Mother(V17.3, Z82.49) Status:Active Hypertension, benign: Mother , Sister Status:Active Family history of hypotensio n: Father(V17.49, Z82.49) Status:Active Family history of congestive heart failure: Father(V17.49, Z82.49) Status:Active Unknown Family Member Name Dates Details Family history of myocardial infarction: Mother(V17.3, Z82.49) Status:Active Hypertension, benign: Mother , Sister Status:Active Family history of hypotensio n: Father(V17.49, Z82.49) Status:Active Family history of congestive heart failure: Father(V17.49, Z82.49) Status:Active Unknown Family Member Name Dates Details Family history of myocardial infarction: Mother(V17.3, Z82.49) Status:Active Hypertension, benign: Mother , Sister Status:Active Family history of hypotensio n: Father(V17.49, Z82.49) Status:Active Family history of congestive heart failure: Father(V17.49, Z82.49) Status:Active Unknown Family Member Name Dates Details Family history of myocardial infarction: Mother(V17.3, Z82.49) Status:Active Hypertension, benign: Mother , Sister Status:Active Family history of hypotensio n: Father(V17.49, Z82.49) Status:Active Family history of congestive heart failure: Father(V17.49, Z82.49) Status:Active Advance Directives No Advanced Directives Records Found Advance Directive Response Recorded Date/ Time Advance Directives No May 28, 2021 2:04pm Advance Directive Response Recorded Date/ Time Advance Directives No May 28, 2021 3:04pm Chief Complaint and Reason for Visit Chief Complaint unresponsive Bradycardia Syncope Reason for Visit KRISTAN (acute kidney in jury) Bilateral carotid artery disease HTN (hypertension) Syncope Tobacco abuse Chief Complaint I65.23 Chief Complaint i65.23 Chief Complaint * CARLEY QUINTANILLA is being seen for follow-up of a hospitalization for. * 82-year-old white female who I saw in the hospital recently for syncope. It was believed that the syncope either caused by bradycardia or carotid disease. When she was seen by vascular surgery regarding the carotid stenosis that was felt to be above 70% they did not believe that it was the cause and did not want to intervene. The patient has had no recurrent syncope. 30-day event monitor which was completed last week and reviewed with the patient showed no arrhythmias. She continues to smoke something that I advised against given her carotid disease. She reports no orthopnea PND or palpitations. She came with her sister today. Patient is hypertensive and hyperlipidemic and hypothyroid on medical therapy. * Assessment/recommendations: * 1 recurrent syncope with no obvious cause. We believe bradycardia arrhythmias may have been a factor and therefore agent that control heart rate were eliminated. 30-day event monitor revealed no arrhythmias. No further cardiac actions needed. Echocardiogram August 2022 was normal * 2 carotid disease confirmed by ultrasound asymptomatic. We will continue to advise patient to quit smoking, continue antiplatelet therapy, hypertension therapy and hyperlipidemia management. * 3 hypertension, currently under control using amlodipine and hydralazine with lisinopril * 4 hyperlipidemia on simvastatin. The dose has to be reduced down to 40 mg daily. * 5 active tobacco abuse, encouraged the patient to quit smoking. * CARLEY QUINTANILLA is being seen for follow-up of a hospitalization for. * 82-year-old white female who I saw in the hospital recently for syncope. It was believed that the syncope either caused by bradycardia or carotid disease. When she was seen by vascular surgery regarding the carotid stenosis that was felt to be above 70% they did not believe that it was the cause and did not want to intervene. The patient has had no recurrent syncope. 30-day event monitor which was completed last week and reviewed with the patient showed no arrhythmias. She continues to smoke something that I advised against given her carotid disease. She reports no orthopnea PND or palpitations. She came with her sister today. Patient is hypertensive and hyperlipidemic and hypothyroid on medical therapy. * Assessment/recommendations: * 1 recurrent syncope with no obvious cause. We believe bradycardia arrhythmias may have been a factor and therefore agent that control heart rate were eliminated. 30-day event monitor revealed no arrhythmias. No further cardiac actions needed. Echocardiogram August 2022 was normal * 2 carotid disease confirmed by ultrasound asymptomatic. We will continue to advise patient to quit smoking, continue antiplatelet therapy, hypertension therapy and hyperlipidemia management. * 3 hypertension, currently under control using amlodipine and hydralazine with lisinopril * 4 hyperlipidemia on simvastatin. The dose has to be reduced down to 40 mg daily. * 5 active tobacco abuse, encouraged the patient to quit smoking. Additional Source Comments INFORMATION SOURCE (unrecogn ized section and content) DATE CREATED AUTHOR 09/15/2018 [facility] DATE CREATED AUTHOR AUTHOR'S ORGANIZ ATION 02/02/2021 [facility] DATE CREATED AUTHOR AUTHOR'S ORGANIZ ATION 08/30/2021 [facility] DATE CREATED AUTHOR AUTHOR'S ORGANIZ ATION 09/22/2021 [facility] Special[facility] DATE CREATED AUTHOR AUTHOR'S ORGANIZ ATION 09/28/2022 [employer] DATE CREATED AUTHOR AUTHOR'S ORGANIZ ATION 03/18/2023 [facility] DATE CREATED AUTHOR AUTHOR'S ORGANIZ ATION 10/03/2023 [facility] DATE CREATED AUTHOR AUTHOR'S ORGANIZ ATION 01/22/2024 [facility] dical Specialists EPIC REASON FOR VISIT (unrecogniz ed section and content) Reason Comments Toenail Care Care Teams (unrecognized sec tion and content) Team Status: Active Member Role Status Dates Kali Maharaj II MD Primary Care Provider Active Team Status: Inactive Member Role Status Dates Kali Maharaj II MD Primary Care Provider Active Sergio Escudero MD Attending Provider Active Team Status: Inactive Member Role Status Dates Kali Maharaj II MD Primary Care Provider Active Abdulaziz Alvarez MD Attending Provider Active Team Status: Active Member Role Status Dates Edward Bernstein DO Emergency Provider Active Kali Maharaj II MD Primary Care Provider Active Dee Kenney MD Admit Provider, Attending Provider Active Megan Jenkins LPN Other Provider Active Kalina Nelson LPN Other Provider Active Jhonatan Oakes MD Other Provider Active Raysa Robins , [employer] Other Provider Active Shelby Unger MD Other Provider Active Sergio Escudero MD Other Provider Active Team Status: Active Member Role Status Dates Kali Maharaj II MD Primary Care Provider Active Abdulaziz Alvarez MD Attending Provider Active Team Status: Inactive Member Role Status Edward Bernstein DO Emergency Provider Active Kali Maharaj II MD Primary Care Provider Active Dee Kenney MD Admit Provider, Attending Provider Active Megan Jenkins LPN Other Provider Active Kalina Nelson LPN Other Provider Active Jhonatan Oakes MD Other Provider Active Raysa Robins , [employer] Other Provider Active Shelby Unger MD Other Provider Active Sergio Escudero MD Other Provider Active Team Status: Inactive Member Role Status Dates Kali Maharaj II MD Primary Care Provider Active Raysa Robins , [employer] Attending Provider Active Administrative Director Relationship Specialty Start Date End Date Kali Maharaj MD [address] [place] [address] PCP - [employer] 12/05/22 Kali Maharaj MD [address] [place] [address] PCP - General Internal Medicine 04/10/23 Sarah Lozada, DIRECTOR CONSUMER [facility] 10/30/23 Administrative Director Relationship Specialty Start Date End Date Kali Maharaj MD [address] [place] [address] PCP - [employer] 12/05/22 Kali Maharaj MD [address] [place] [address] PCP - General Internal Medicine 04/10/23 Sarah Lozada, DIRECTOR [employer]SUM[employer] [facility] 10/30/23 Administrative Director Relationship Specialty Start Date End Date Kali Maharaj MD [address] [place] [address] PCP - [employer] 12/05/22 Kali Maharaj MD [address] [facility] [address] [place] [address] PCP - General Internal Medicine 04/10/23 Sarah Lozada LSW [facility] 10/30/23 Goals (unrecognized section and content) Goals may be documented in a n alternate section FOR RECORDS PERTAINING TO PATIENTS WHO ARE OR HAVE BEEN ENROLLED IN A CHEMICAL DEPENDENCY/SUBSTANCEABUSE PROGRAM, SOME INFORMATION MAY BE OMITTED. This clinical summary was aggregated from multiple sources. Caution should be exercised in using it in the provision of clinical care. This summary normalizes information from multiple sources, and as a consequence, information in this document may materially change the coding, format and clinical context of patient data. In addition, data may be omitted in some cases. CLINICAL DECISIONS SHOULD BE BASED ON THE PRIMARY CLINICAL RECORDS. [employer] [facility]. provides no warranty or guarantee of the accuracy or completeness of information in this document.
[2024-01-30 06:09] LABS: C-Reactive Protein, Cardiac 2.82 mg/L (0.00-3.00); Rheumatoid Factor (RF) <10.0 IU/mL (<14.0)
[2024-01-30 12:09] LABS: ANA Direct Negative (Negative)
== END 2024-01-29 09:46 | disposition home or self-care (01) ==
LOC: LAB 09:45
PROVIDERS: PCP Internal Medicine; Visit Provider Psychiatry & Neurology Neurology
DX: F03.90 Unspecified dementia, unspecified severity, without behavioral disturbance, psychotic disturbance, mood disturbance, and anxiety (principal); G62.9 Polyneuropathy, unspecified; R79.89 Other specified abnormal findings of blood chemistry; G60.9 Hereditary and idiopathic neuropathy, unspecified; Z11.3 Encounter for screening for infections with a predominantly sexual mode of transmission; E53.1 Pyridoxine deficiency; I70.91 Generalized atherosclerosis; D51.3 Other dietary vitamin B12 deficiency anemia; M79.10 Myalgia, unspecified site; E78.5 Hyperlipidemia, unspecified
CPT/HCPCS: 36415; 86038; 86140; 86431

== ENCOUNTER 2024-03-08 16:35 | Observation (INO) | payer MEDICARE, MEDICAID, SELFPAY ==
[2024-03-08] VITALS (18 sets, daily range): BP systolic 132–215; BP diastolic 57–90; PULSE 64–96; TEMP 36.4–36.6; O2SAT 93–100; BMI 26.7; BMI 28.5
--- OUTSIDE RECORDS SUMMARY | 2024-03-08 16:44 | XMS_ITS | CCD ---
Author Organization [facility] Care Team Providers Care Adzing And Boring Machine Helper Name Role Phone PHYSICIAN, DEFAULT Unavailable Unavailable PHYSICIAN, DEFAULT Unavailable Unavailable KALI MAHARAJ Unavailable Unavailable PROVIDER, UNKNOWN Attending Unavailable PROVIDER, UNKNOWN Admitting Unavailable LULU FRIEDMAN Attending Unavailable NICKO, DR MARTINEZ Primary Care Unavailable LULU FRIEDMAN Admitting Unavailable LULU FRIEDMAN Attending Unavailable NICKO, DR MARTINEZ Primary Care Unavailable LULU FRIEDMAN Admitting Unavailable NADERER, DR ZACH Albarran Consulting Unavailable FRANCIACHKATT, DAVID GUTIÉRREZ Consulting Unavailable HAY, DR BENNETT Consulting Unavailable LULU FRIEDMAN Consulting Unavailable COTY, YAQUELIN Consulting Unavailable NICKO, DR MARTINEZ Primary Care Unavailable LULU FRIEDMAN Admitting Unavailable LULU FRIEDMAN Attending Unavailable SURAJ, DR SANTANA Attending Unavailable SURAJ, DR SANTANA Admitting Unavailable BEJ, YULIA Attending Unavailable BEJ, YULIA Admitting Unavailable NICKO, DR MARTINEZ Primary Care Unavailable BEJ, YULIA Consulting Unavailable NICKO, DR MARTINEZ Primary Care Unavailable HEMMER, DR PILY Rubalcava Attending Unavailable ZIEBER, DR OMAR Davison Consulting Unavailable HEMMER, DR PILY Rubalcava Admitting Unavailable HEMMER, DR PILY Rubalcava Consulting Unavailable NICKO, DR MARTINEZ Primary Care Unavailable NICKO, DR MARTINEZ Attending Unavailable NICKO, DR MARTINEZ Admitting Unavailable Jhonatan Oakes Unavailable DO Edward Bernstein Emergency Provider DYLON Maharaj Primary Care Provider MD Dee Kenney Admit Provider MD Dee Kenney Attending Provider JUAN CARLOS Jenkins Other Provider UnavailJUAN CARLOS Silver Other Provider Unavailable MD Jhonatan Oakes Other Provider DEEPA Robins Other Provider [phone] MD Shelby Unger Other Provider MD Sergio Escudero Other Provider MD Abdulaziz Alvarez Attending Provider MD Abdulaziz Alvarez Attending Provider Sergio Escudero Unavailable Unavailable Unavailable Alvarez, Abdulaziz Attending Unavailable Nicko II, Dr. Kali Murdock Primary Care Renee vailable Alvarez, Cintron Referring Unavailable Maharaj II, Dr. Kali Murdock Primary Care Renee vailable Alvarez, Cintron Attending Unavailable Alvarez, Abdulaziz Referring Unavailable Alvarez, Abdulaziz Attending Unavailable Nicko II, Dr. Kali Murdock Primary Care Renee vailable Alvarez, Cintron Attending Unavailable Alvarez, Abdulaziz Attending Unavailable Alvarez, Abdulaziz Attending Unavailable Raysa Robins Unavailable DYLON Maharaj Primary Care Provider [phone] MD Sergio Escudero Attending Provider DYLON Maharaj Primary Care Provider DEEPA Robins Attending Provider Raysa Robins Admitting Unavailable Raysa Robins Attending Unavailable Kali Maharaj Primary Care Unavailable Kali Maharaj Primary Care Unavailable Sergio Escudero Admitting UnavailSergio Estrada Attending UnavailKali Alvares MD Unavailable [phone] Kali Maharaj MD Primary Care Provider Neville METAL BED ASSEMBLER, Sarah Unavailable Unavailable Neville METAL BED ASSEMBLER, Sarah Unavailable YULIA MCCRAY Attending Unavailable KALI MAHARAJ Attending Unavailable ISMAEL AQUINO Attending Unavailable YULIA MCCRAY Attending Unavailable KALI MAHARJA Attending Unavailable Allergies Allergy Classification Reported Allergen(s) Allergy Type Date of Onset Reaction(s) Facility (1 source) Chocolate Drug allergy (disorder) 02-21-2012 [facility] Repository (1 source) Chocolate Drug allergy (disorder) 02-01-2021 [facility] Repository (1 source) Chocolate Drug allergy (disorder) 05-28-2021 [facility] Repository Medications Current Medications Medication Drug Class(es) [...] Levothyroxine Active 75 MCG PO Daily at 0630 May 27, 2021 11:00pm take 1 tablet by [...] Active 20 MG PO Twice daily 60 30 May 29, 2021 11:00pm Lisinopril Activ e [...] Resolved: 09-21-2022 Episodic Other aftercare (1 source) terminal operations manager (current) use of aspirin; Translations: [MECHANICAL ASSEMBLER CURRENT USE OF ASPIRIN] Onset: 02-09-2021 Episodic Other aftercare (1 source) Other intermediate school teacher (current) drug therapy; Translations: [OTH MECHANICAL ASSEMBLER CURRENT DRUG THERAPY] Onset: 02-09-2021 Episodic Other [...] Reference Range Facility US carotid doppler BIon 09-07 US carotid doppler BI [facility] [place] [address] Ultrasound Report Signed Patient: Carley Quintanilla MR#: [id number] : 1940 Acct:[id number] Age/Sex: 83 / F ADM Date: 09/26/23 Loc: [facility] Room: Type: [facility] Attending Dr: Raysa Robins TEMPERATURE INSPECTOR-C Ordering Provider: Raysa Robins APRN Date of [...] Sergio Escudero MD09/26/2023 1:51 PM Dictation Location: [place] [address] Tech: Olimpia Corea Transcribed By: ADEEL 09/26/23 135 Dictated By: Sergio Escudero MD 09/26/23 1350 Signed By: 09/26/23 1351 Normal [facility] US carotid doppler BIon 06- US carotid doppler BI [facility] [place] [address] Ultrasound Report Signed Patient: Carley Quintanilla MR#: [id number] : 1940 Acct:[id number] Age/Sex: 82 / F ADM Date: 03/20/23 Loc: [facility] Room: Type: [facility] Attending Dr: Sergio Escudero MD Ordering [...] Jhonatan Oakes M.D.03/22/2023 1:18 PM Dictation Location: [place] [address] Tech: Marcelle Minor Transcribed By: ADEEL 03/22/231317 Dictated By: Jhonatan Oakes MD 03/22/231316 Signed By: 03/22/231317 [facility] Office Visit (Cardiology)on 09-21-2022 Follow-up visit Diagnoses/Problems [...] quit smoking.; Status:Complete - Retrospective Authorization; Done: [id number] You need to stop smoking. Though it is not easy, more than half of all adult smokers have quit. We encourage you to write down all the reasons you should quit smoking and set a quit date for yourself. Ask us how we can help. You may also call 1-860-UEAZNOW for free resources and assistance.; Status:Complete - Retrospective Authorization; Done: [id number] Tobacco Use Screening; Status:Complete; Done: [id number] Patient Instructions Please bring all medicines, vitamins, [...] negative for complaint. Vitals Vital Signs Recorded: [id number] 12:15PM Heart Rate84, R Radial Aqxhgpcr653, RUE Ufnxalnwt00, RUE Height5 ft 6 in Ahadzm216 lb BMI Oybvtfcsgr12.05 kg/m2 BSA Calculated1.76 Tobacco Usea) Yes Patient encouraged to stop using tobacco productsYes PHQ-2 Patient Declined/Screening not indicatedYes (more content not included)... Normal [employer] Tobacco Screening.on 022 Fall risk assessment a) No falls within the last year [facility] [employer] DO Work Phone: Tobacco use status [facility] a) Yes [facility] [employer] DO Work Phone: Tobacco Screening. Yes [facility] [employer] DO Work Phone: No Panel Informationon 09-14 [facility] [employer] DO Work Phone: Creatinine and Glomerular fi ltration rate.predicted panel (S/P/Bld)Ordered By: Dee Kenney on 08-12-2022 Creatinine [Mass/Vol] 1.16 mg/dL 0.44-1.[address] [facility] Estimated glomerular filtrat ion rate (GFR) non- AmericanOrdered By: Dee Kenney on 08-12-2022 GFR/1.73 sq M.predicted among non-blacks MDRD (S/P/Bld) [Vol rate/Area] 45 mL/Min [facility] No Panel InformationOrdered By: Dee Kenney on 08-12-2022 Estimated GFR () 54 mL/Min [facility] Comment on above: GFR estimated refere nce range: According to KDOQI guidelines, <60 ml/min/1.73m2 is sufficient to diagnose a patient with chronic kidney disease. Pharmacy Creatinine Clearance (Chem 35.61 [facility] Serum or plasma anion gap de terminationOrdered By: Dee Kenney on 08-12-2022 Anion gap [Moles/Vol] 11.3 mmol/L 6.0-15.0 [facility] Serum or plasma calcium azalea urement (mass/volume)Ordered By: Dee Kenney on 08-12-2022 Calcium [Mass/Vol] 8.6 mg/dL 8.2-10.2 [facility] Serum or plasma chloride janet surement (moles/volume)Ordered By: Dee Kenney on 08-12-2022 Chloride [Moles/Vol] 110 mmol/L 95-114 [facility] Serum or plasma glucose azalea urement (mass/volume)Ordered By: Dee Kenney on 08-12-2022 Glucose [Mass/Vol] 95 mg/dL 70-100 [facility] Comment on above: ADA recommended refe rence rangeRandom Glucose Reference Range is dependent on time and content of last meal. Glucose of more than 200 mg/dL in a nonstressed, ambulatory subject supports the diagnosis of Diabetes Mellitus. Serum or plasma potassium me asurement (moles/volume)Ordered By: Dee Kenney on 08-12-2022 Potassium [Moles/Vol] 3.7 mmol/L 3.5-5.[address] [facility] Serum or plasma sodium measu rement (moles/volume)Ordered By: Dee Kenney on 08-12-2022 Sodium [Moles/Vol] 141 mmol/L 136-146 [facility] Serum or plasma total carbon dioxide measurement (moles/volume)Ordered By: Dee Kenney on 08-12-2022 CO2 [Moles/Vol] 23.4 mmol/L 22.0-30.0 [facility] Serum or plasma urea nitroge n measurement (mass/volume)Ordered By: Dee Kenney on 08-12-2022 Urea nitrogen [Mass/Vol] 28 mg/dL 9-23 [facility] TSH DL <= 0.005 mIU/L QnOrde red By: Dee Kenney on 08-11-2022 TSH Qn 2.20 m[IU]/L 0.45-5.33 [facility] Basophils Auto (Bld) [#/Vol] Ordered By: Edward Bernstein on 08-10-2022 Basophils (Bld) [#/Vol] 0.1 10*3/uL 0.0-0.2 [facility] Basophils/100 WBC Auto (Bld) Ordered By: Ewdard Bernstein on 08-10-2022 Basophils/100 WBC (Bld) 0.5 % . [facility] Bilirubin Test strip Ql (U)O rdered By: Edward Bernstein on 08-10-2022 Bilirubin Ql (U) Negative Negative [facility] Body fluid albumin measureme nt (mass/volume)Ordered By: Edward Bernstein on 08-10-2022 Albumin (Body fld) [Mass/Vol] 3.3 g/dL 3.2-5.5 [facility] COVID CepheidOrdered By: Rima Bernstein on 08-10-2022 SARS-CoV-2 (COVID-19) Ab IA Ql Negative Negative [facility] Comment on above: This is a duplicate [employer] Xpert Xpress CoV-2/Flu/RSV Plus RNA by RT-PCR result to be used for statistical tracking purpose only. SARS-CoV-2 (COVID-19) RNA ALLISON+probe Ql (Unsp spec) [facility] Color Auto (U)Ordered By: Harjit Bernstein on 08-10-2022 Color (U) Yellow Yellow [facility] Eosinophils Auto (Bld) [#/Vo l]Ordered By: Edward Bernstein on 08-10-2022 Eosinophils (Bld) [#/Vol] 0.1 10*3/uL 0.0-0.45 [facility] Eosinophils/100 WBC Auto (Bl d)Ordered By: Edward Bernstein on 08-10-2022 Eosinophils/100 WBC (Bld) 0.7 % . [facility] Erythrocyte distribution wid th Auto (RBC) [Ratio]Ordered By: Edward Bernstein on 08-10-2022 Erythrocyte distribution width (RBC) [Ratio] 13.4 % 11.9-15.3 [facility] Globulin Calc (S) [Mass/Vol] Ordered By: Edward Bernstein on 08-10-2022 Globulin (S) [Mass/Vol] 2.7 g/dL [facility] Glucose Glucometer (BldC) [M ass/Vol]Ordered By: Edward Bernstein on 08-10-2022 Glucose [Mass/Vol] 101 mg/dL [facility] Comment on above: Random Glucose Refer ence Range is dependent on time and content of last meal. Glucose of more than 200 mg/dL in a nonstressed, ambulatory subject supports the diagnosis of Diabetes Mellitus. Hematocrit Auto (Bld) [Volum e fraction]Ordered By: Edward Bernstein on 08-10-2022 Hematocrit (Bld) [Volume fraction] 40.9 % 34.0-46.4 [facility] Hemoglobin [Mass/volume] in BloodOrdered By: Edward Bernstein on 08-10-2022 Hemoglobin (Bld) [Mass/Vol] 13.3 g/dL 11.8-15.4 [facility] Ketones Auto test strip (U) [Mass/Vol]Ordered By: Edward Bernstein on 08-10-2022 Ketones (U) [Mass/Vol] Trace Negative [facility] - Chemistry and C hemistry - challengeOrdered By: Edward Bernstein on 08-10-2022 Magnesium [Mass/Vol] 2.2 mg/dL 1.6-2.6 [facility] Natriuretic peptide B (Bld) [Mass/Vol] 29.0 pg/mL 5-100 [facility] Laboratory - CoagulationOrde red By: Edward Bernstein on 08-10-2022 PT Coag (PPP) [Time] 11.0 s 9.0-12.9 [facility] - Hematology and Cell countsOrdered By: Edward Bernstein on 08-10-2022 Nucleated RBC/100 WBC (Bld) [Ratio] 0.0 % 0-0.5 [facility] Leukocytes [#/volume] in Blo od by Automated countOrdered By: Edward Bernstein on 08-10-2022 WBC (Bld) [#/Vol] 9.9 10*3/uL 4.5-11.0 [facility] Lymphocytes Auto (Bld) [#/Vo l]Ordered By: Edward Bernstein on 08-10-2022 Lymphocytes (Bld) [#/Vol] 0.9 10*3/uL 1.00-4.8 [facility] Lymphocytes/100 WBC Auto (Bl d)Ordered By: Edward Bernstein on 08-10-2022 Lymphocytes/100 WBC (Bld) 9.5 % . [facility] MCH Auto (RBC) [Entitic mass ]Ordered By: Edward Bernstein on 08-10-2022 MCH (RBC) [Entitic mass] 30.6 pg 24.7-34.3 [facility] MCHC Auto (RBC) [Mass/Vol]Or dered By: Edward Bernstein on 08-10-2022 MCHC (RBC) [Mass/Vol] 32.6 g/dL 32.0-35.[address] [facility] MCV Auto (RBC) [Entitic vol] Ordered By: Edward Bernstein on 08-10-2022 MCV (RBC) [Entitic vol] 94.0 fL 80-100 [facility] Monocytes Auto (Bld) [#/Vol] Ordered By: Edward Bernstein on 08-10-2022 Monocytes (Bld) [#/Vol] 0.6 10*3/uL 0.0-0.8 [facility] Monocytes/100 WBC Auto (Bld) Ordered By: Edward Bernstein on 08-10-2022 Monocytes/100 WBC (Bld) 5.7 % . [facility] Neutrophils Auto (Bld) [#/Vo l]Ordered By: Edward Bernstein on 08-10-2022 Neutrophils (Bld) [#/Vol] 8.3 10*3/uL 1.8-7.7 [facility] Neutrophils/100 WBC Auto (Bl d)Ordered By: Edward Bernstein on 08-10-2022 Neutrophils/100 WBC (Bld) 83.6 % . [facility] Nitrite Test strip Ql (U)Ord ered By: Edward Bernstein on 08-10-2022 Nitrite Ql (U) Negative Negative [facility] Platelet mean volume Auto (B ld) [Entitic vol]Ordered By: Edward Bernstein on 08-10-2022 Platelet mean volume (Bld) [Entitic vol] 10.2 fL 6.3-10.7 [facility] Platelet poor plasma interna tional normalized ratio (INR) by coagulation assay (relatOrdered By: Edward Bernstein on 08-10-2022 INR Coag (PPP) [Relative time] 1.0 {INR} [facility] Comment on above: INR Therapeutic Rang e [...] 08-10-2022 Platelets (Bld) [#/Vol] 193 10*3/uL 150-450 [facility] Protein Auto test strip (U) [Mass/Vol]Ordered By: Edward Bernstein on 08-10-2022 Protein (U) [Mass/Vol] Negative Negative [facility] Protein [Mass/volume] in Ser um or PlasmaOrdered By: Edward Bernstein on 08-10-2022 Protein [Mass/Vol] 6.0 g/dL 6.1-7.9 [facility] RBC Auto (Bld) [#/Vol]Ordere d By: Edward Bernstein on 08-10-2022 RBC (Bld) [#/Vol] 4.36 10*6/uL 3.60-5.00 [facility] Serum or plasma alanine jensen otransferase measurement without P-5'-P (enzymatic activiOrdered By: Edward Bernstein on 08-10-2022 ALT No additional P-5'-P [Catalytic activity/Vol] 12 U/L 10-60 [facility] Serum or plasma albumin/glob ulin mass ratioOrdered By: Edward Bernstein on 08-10-2022 Albumin/Globulin [Mass ratio] 1.2 {ratio} [facility] Serum or plasma alkaline sondra sphatase measurement (enzymatic activity/volume)Ordered By: Edward Bernstein on 08-10-2022 ALP [Catalytic activity/Vol] 52 U/L 32-92 [facility] Serum or plasma aspartate am inotransferase measurement (enzymatic activity/volume)Ordered By: Edward Bernstein on 08-10-2022 AST [Catalytic activity/Vol] 16 U/L 10-42 [facility] Serum or plasma total biliru bin measurement (mass/volume)Ordered By: Edward Bernstein on 08-10-2022 Bilirubin [Mass/Vol] 0.5 mg/dL 0.3-1.2 [facility] Specific gravity Auto test s trip (U) [Rel density]Ordered By: Edward Bernstein on 08-10-2022 Specific gravity (U) [Rel density] 1.014 1.001-1.03 0 [facility] Troponin I.cardiac [Mass/vol ume] in Serum or Plasma by High sensitivity methodOrdered By: Edward Bernstein on 08-10-2022 Troponin I.cardiac High sensitivity method [Mass/Vol] 9 pg/mL 0-15 [facility] Urine clarity by refractomet ry automatedOrdered By: Edward Bernstein on 08-10-2022 Clarity Refractometry automated (U) Clear Clear [facility] Urine glucose measurement by automated test strip (mass/volume)Ordered By: Edward Bernstein on 08-10-2022 Glucose Auto test strip (U) [Mass/Vol] Normal mg/dL Normal [facility] Urine hemoglobin detection b y automated test stripOrdered By: Edward Bernstein on 08-10-2022 Hemoglobin Auto test strip Ql (U) Negative Negative [facility] Urine leukocyte esterase det ection by automated test stripOrdered By: Edward Bernstein on 08-10-2022 Leukocyte esterase Auto test strip Ql (U) Negative Negative [facility] Urobilinogen Auto test strip (U) [Mass/Vol]Ordered By: Edward Bernstein on 08-10-2022 Urobilinogen (U) [Mass/Vol] Normal mg/dL Normal [facility] pH Auto test strip (U)Ordere d By: Edward Bernstein on 08-10-2022 pH (U) 5.5 [pH] 5.0-9.0 [facility] MRI Brain w/oon 09-20-2021 MRI Brain w/o CLINICAL HISTORY: COMPARISON: TECHNIQUE: Multiplanar Juliankeyla SterlingLavern MRI of the brain was performed contrast. [...] by MATTHEW TRIPLETT on 09/21/2021 1240 Normal [facility] Paraffin Plant Operator LYME DISEASE, WESTERN BLOTon 08-26-2021 IgG P18 Ab. Absent Normal [facility] Comment on above: Performed By: #### L YMWB #### [facility] [address] [place] [address] Dr. Christian Lebron IgG P23 Ab. Absent Normal [facility] Comment on above: Performed By: #### L YMWB #### [facility] [address] [place] [address] Dr. Christian Lebron IgG P28 Ab. Absent [facility] Comment on above: Performed By: #### L YMWB #### [facility] [address] [place] [address] Dr. Christian Lebron IgG P30 Ab. Absent [facility] Comment on above: Performed By: #### L YMWB #### [facility] [address] [place] [address] Dr. Christian Lebron IgG P39 Ab. Absent [facility] Comment on above: Performed By: #### L YMWB #### [facility] [address] [place] [address] Dr. Christian Lebron IgG P41 Ab. Absent [facility] Comment on above: Performed By: #### L YMWB #### [facility] [address] [place] [address] Dr. Christian Lebron IgG P45 Ab. Absent Normal [facility] Comment on above: Performed By: #### L YMWB #### [facility] [address] [place] [address] Dr. Christian Lebron IgG P58 Ab. Absent [facility] Comment on above: Performed By: #### L YMWB #### [facility] [address] [place] [address] Dr. Christian Lebron IgG P66 Ab. Absent [facility] Comment on above: Performed By: #### L YMWB #### [facility] [address] [place] [address] Dr. Christian Lebron IgG P93 Ab. Absent [facility] Comment on above: Performed By: #### L YMWB #### [facility] [address] [place] [address] Dr. Christian Lebron IgM P23 Ab. Absent [facility] Comment on above: Performed By: #### L YMWB #### [facility] [address] [place] [address] Dr. Christian Lebron IgM P39 Ab. Absent [facility] Comment on above: Performed By: #### L YMWB #### [facility] [address] [place] [address] Dr. Christian Lebron IgM P41 Ab. Absent [facility] Comment on above: Performed By: #### L YMWB #### [facility] [address] [place] [address] Dr. Christian Lebron Lyme IgG WB Interp. Negative [facility] Comment on above: Result Comment: Posi tive: 5 of the following Borrelia-specific bands: 18,23,28,30,39,41,45,58, 66, and 93. Negative: No bands or banding patterns which do not meet positive criteria. Performed By: #### L YMWB #### [facility] [address] [place] [address] Dr. Christian Lebron Lyme IgM WB Interp. Negative [facility] Comment on above: Result Comment: Note [...] are those recommended by CDC/ASTPHLD. p23=Osp C, f16=tiqmqpgfv . Note: Sera from individuals with the following may cross react in the Lyme Line Blot assays: other spirochetal diseases (periodontal disease, leptospirosis, relapsing fever, yaws, and pinta); connective autoimmune (Rheumatoid Arthritis and Systemic Lupus Erythematosus and also individuals with Antinuclear Antibody); other infections (Neopit Spotted Fever; Roel-Briones Virus, and Cytomegalovirus). . Performed By: #### L YMWB #### [facility] [address] [place] [address] [address] Christian Leborn METHYLMALONIC ACID (MMA)on 10-26-2020 Disclaimer: Comment Normal [facility] Comment on above: Result Comment: This test was developed and its performance characteristics determined by [employer]. It has not been cleared or approved by the Food and Drug Administration. Performed By: #### M MA2 #### [facility] [address] [place] [address] [address] Christian Lebron Methylmalonic Acid, Serum 255 nmol/L Normal 0-378 [facility] Comment on above: Performed By: #### M MA2 #### [facility] [address] [place] [address] [address] Christian Lebron HOMOCYSTEINEon 08-25-2021 Homocyst(e)ine, Plasma 29.7 umol/L Critically high 0.0-21. 3 [facility] Comment on above: Result Comment: Spec imen quantity insufficient for verification by repeat analysis. Performed By: #### H OMCY #### [facility] [address] [place] [address] [address] Christian Lebron RPR QUANTon 08-24-2021 Rapid Plasma Reagin, Quant Non-Reactive Normal NonRea<1:1 [facility] Comment on above: Performed By: #### R PRQ #### [facility] [address] [place] [address] [address] Christian Lebron AMMONIAon 2021 Ammonia (P) [Moles/Vol] 9 umol/L Critically low 10-30 [facility] Comment on above: Performed By: #### M MA2 #### [facility] [address] [place] [address] Dr. Christian Lebron CRPon 2021 CRP [Mass/Vol] mg/L Normal <=1.0 [facility] Comment on above: Performed By: #### M MA2 #### [facility] [address] [place] [address] Dr. Christian Lebron FOLATEon 2021 FOLATE 4.50 ng/mL Normal >=2.76 [facility] Comment on above: Performed By: #### F T4, VITB12, FOL #### [facility] [address] [place] [address] Dr. Christian Lebron FREE T4on 2021 Free T4 [Mass/Vol] 0.98 ng/dL Normal 0.78-2.19 [facility] Comment on above: Performed By: #### F T4, VITB12, FOL #### [facility] [address] [place] [address] Dr. Christian Lebron LIVER PROFILEon 2021 Albumin [Mass/Vol] 3.6 g/dL Normal 3.5-5.0 [facility] Comment on above: Performed By: #### Khadar MA2 #### [facility] [address] [place] [address] Dr. Christian Lebron Albumin/Globulin [Mass ratio] 1.0 {ratio} Normal [facility] Comment on above: Performed By: #### Khadar MA2 #### [facility] [address] [place] [address] Dr. Christian Lebron ALP [Catalytic activity/Vol] 96 U/L Normal 38-126 [facility] Comment on above: Performed By: #### Khadar MA2 #### [facility] [address] [place] [address] Dr. Christian Lebron ALT [Catalytic activity/Vol] 14 U/L Normal 9-52 [facility] Comment on above: Performed By: #### M MA2 #### [facility] [address] [address] [address] Christian Lebron AST [Catalytic activity/Vol] 17 U/L Normal 14-36 [facility] Comment on above: Performed By: #### M MA2 #### [facility] [address] [address] [address] Christian Lebron BILI, CONJUGATED 0.1 mg/dL Normal 0.0-0.3 [facility] Comment on above: Performed By: #### M MA2 #### [facility] [address] [address] [address] Christian Lebron Bilirubin [Mass/Vol] 0.3 mg/dL Normal 0.2-1.3 [facility] Comment on above: Performed By: #### M MA2 #### [facility] [address] [place] [address] Dr. Christian Lebron Globulin (S) [Mass/Vol] 3.7 g/dL Normal [facility] Comment on above: Performed By: #### M MA2 #### [facility] [address] [address] [address] Christian Lebron Protein [Mass/Vol] 7.3 g/dL Normal 6.1-8.2 [facility] Comment on above: Performed By: #### M MA2 #### [facility] [address] [place] [address] Dr. Christian Lebron SED RATE [facility] 2020 SED RATE 31 mm/hr Critically high <=30 [facility] Comment on above: Performed By: #### H OMCY #### [facility] [address] [place] [address] Dr. Christian Lebron TSHon 2021 TSH 3.087 uIU/mL Normal 0.470-4.68 0 [facility] Comment on above: Performed By: #### M MA2 #### [facility] [address] [place] [address] Dr. Christian Lebron TSH RANGE SEE BELOW Normal [facility] Comment on above: Result Comment: <0.3 4 UIU/ml HYPERTHYROID 0.34-5.60 UIU/ml EUTHYROID >5.60 UIU/ml HYPOTHYROID Performed By: #### M MA2 #### [facility] [address] [place] [address] Dr. Christian Lebron VITAMIN B12on 2021 Cobalamin (Vitamin B12) [Mass/Vol] 521.0 pg/mL Normal 239.0-931. 0 [facility] Comment on above: Performed By: #### F T4, VITB12, FOL #### [facility] [address] [place] [address] Dr. Christian Lebron XR DEXA BONE DENSITYon [...] OMAR SOTELO Date: 2021-07-10 14:50 Normal [facility] CBC AUTO DIFFon 02-02-2021 BASO # 0.1 103/ul Normal 0.0-0.1 [facility] Comment on above: Performed By: #### C BC #### [facility] [address] [place], [place] [id number] Lauri Pily Basophils/100 WBC (Bld) 0.4 % Normal 0.2-2.0 [facility] Comment on above: Performed By: #### C BC #### [facility] [address] [place], [place] [id number] Lauri Pily EO # 0.1 103/ul Normal 0.0-0.7 [facility] Comment on above: Performed By: #### C BC #### [facility] [address] [place], [place] [id number] Lauri Pily Eosinophils/100 WBC (Bld) 0.9 % Normal 0.9-7.0 [facility] Comment on above: Performed By: #### C BC #### [facility] [address] [place] [address] Lauri Pily Erythrocyte distribution width (RBC) [Ratio] 14.2 % Normal 11.0-15.0 [facility] Comment on above: Performed By: #### C BC #### [facility] [address] [place] [address] Lauri Pily Hematocrit (Bld) [Volume fraction] 40.8 % Normal 36.0-48.0 [facility] Comment on above: Performed By: #### C BC #### [facility] [address] [place] [address] Lauri Pily Hemoglobin (Bld) [Mass/Vol] 13.1 g/dL Normal 12.0-16.0 [facility] Comment on above: Performed By: #### C BC #### [facility] [address] [place] [address] Lauri Pily IG # 0.06 10e3/ul Critically high 0.00-0.03 [facility] Comment on above: Performed By: #### C BC #### [facility] [address] [place] [address] Lauri Pily IG % 0.5 % Normal 0.0-0.5 [facility] Comment on above: Performed By: #### C BC #### [facility] [address] [place] [address] Lauri Pily LYMPH # 2.4 103/ul Normal 1.2-3.8 [facility] Comment on above: Performed By: #### C BC #### [facility] [address] [place] [address] Lauri Pily Lymphocytes/100 WBC (Bld) 20.7 % Normal 20.5-60.0 [facility] Comment on above: Performed By: #### C BC #### [facility] [address] [place], [place] [id number] Laurilaura Nascimento MANUAL DIFF REQ NO Normal [facility] Comment on above: Performed By: #### C BC #### [facility] [address] [place] [address] Laurilaura Nascimento MCH (RBC) [Entitic mass] 28.5 pg Normal 26.7-34.0 [facility] Comment on above: Performed By: #### C BC #### [facility] [address] [place] [address] Lauri Nascimento MCHC (RBC) [Mass/Vol] 32.1 g/dL Normal 29.9-35.2 [facility] Comment on above: Performed By: #### C BC #### [facility] [address] [place] [address] Laurilaura Nascimento MCV (RBC) [Entitic vol] 88.9 fL Normal 81.0-99.0 [facility] Comment on above: Performed By: #### C BC #### [facility] [address] [place] [address] Lauri Pily MONO # 0.9 103/ul Critically high 0.3-0.8 [facility] Comment on above: Performed By: #### C BC #### [facility] [address] [place], [place] [id number] Lauri Nascimetno Monocytes/100 WBC (Bld) 7.7 % Normal 1.7-12.0 [facility] Comment on above: Performed By: #### C BC #### [facility] [address] [place] [address] Lauri Pily NEUT # 8.1 103/ul Critically high 1.4-6.5 [facility] Comment on above: Performed By: #### C BC #### [facility] [address] [place], [place] [address] Lauri Pily Neutrophils/100 WBC (Bld) 69.8 % Normal 43.0-75.0 [facility] Comment on above: Performed By: #### C BC #### [facility] [address] [place] [address] Lauri Nascimento Platelet mean volume (Bld) [Entitic vol] 11.9 fL Normal 9.5-13.5 [facility] Comment on above: Performed By: #### C BC #### [facility] [address] [place] [address] Lauri Nascimento PLT 197 103/ul Normal 150-450 [facility] Comment on above: Performed By: #### C BC #### [facility] [address] [place] [address] Lauri Nascimento RBC 4.59 106/ul Normal 4.20-5.40 [facility] Comment on above: Performed By: #### C BC #### [facility] [address] [place] [address] Lauri Nascimento WBC 11.6 103/ul Critically high 4.0-11.0 [facility] Comment on above: Performed By: #### C BC #### [facility] [address] [place] [address] Lauri Nascimento PROF CHEM 8 (BAS METB)on Anion gap [Moles/Vol] 12.7 mmol/L Normal [facility] Comment on above: Performed By: #### H OMCY #### [facility] [address] [place] [address] Dr. Christian Lebron Calcium [Mass/Vol] 9.1 mg/dL Normal 8.4-10.2 [facility] Comment on above: Performed By: #### H OMCY #### [facility] [address] [place] [address] Dr. Christian Lebron Chloride [Moles/Vol] 110 mmol/L Critically high 98-107 [facility] Comment on above: Performed By: #### H OMCY #### [facility] [address] [place] [address] Dr. Christian Lebron CO2 [Moles/Vol] 21.7 mmol/L Critically low 22.0-30.0 [facility] Comment on above: Performed By: #### H OMCY #### [facility] [address] [place] [address] Dr. Christian Lebron Creatinine [Mass/Vol] 1.25 mg/dL Critically high 0.52-1.04 [facility] Comment on above: Performed By: #### H OMCY #### [facility] [address] [address] [address] Christian Lebron EGFR-AF PUERTO RICAN 50 mL/min/1.73m2 Critically low >=60 [facility] Comment on above: Performed By: #### H OMCY #### [facility] [address] [address] [address] Christian Lebron EGFR-NON AF PUERTO RICAN 41 mL/min/1.73m2 Critically low >=60 [facility] Comment on above: Performed By: #### H OMCY #### [facility] [address] [address] [address] Christian Lebron Glucose [Mass/Vol] 117 mg/dL Critically high 74-106 T [facility] Comment on above: Performed By: #### H OMCY #### [facility] [address] [address] [address] Christian Lebron Potassium [Moles/Vol] 3.4 mmol/L Normal 3.4-5.0 [facility] Comment on above: Performed By: #### H OMCY #### [facility] [address] [address] [address] Christian Lebron Sodium [Moles/Vol] 141 mmol/L Normal 137-145 [facility] Comment on above: Performed By: #### H OMCY #### [facility] [address] [address] [address] Christian Lebron Urea nitrogen [Mass/Vol] 28.0 mg/dL Critically high 7.0-17.0 [facility] Comment on above: Performed By: #### H OMCY #### [facility] [address] [address] [address] Christian Lebron Urea nitrogen/Creatinine [Mass ratio] 22.4 mg/mg Normal [facility] Comment on above: Performed By: #### H OMCY #### [facility] [address] [address] [address] Christian Lebron CBC AUTO DIFFon 02-01-2021 BASO # 0.1 103/ul Normal 0.0-0.1 [facility] Comment on above: Performed By: #### Khadar MA2 #### [facility] [address] [address] [address] Christian Lebron Basophils/100 WBC (Bld) 0.5 % Normal 0.2-2.0 [facility] Comment on above: Performed By: #### Khadar HORNE2 #### [facility] [address] [address] [address] Christian Lebron EO # 0.1 103/ul Normal 0.0-0.7 [facility] Comment on above: Performed By: #### Khadar MA2 #### [facility] [address] [place] [address] Dr. Christian Lebron Eosinophils/100 WBC (Bld) 1.0 % Normal 0.9-7.0 [facility] Comment on above: Performed By: #### Khadar HORNE2 #### [facility] [address] [place] [address] Dr. Christian Lebron Erythrocyte distribution width (RBC) [Ratio] 13.9 % Normal 11.0-15.0 [facility] Comment on above: Performed By: #### Khadar HORNE2 #### [facility] [address] [place] [address] Dr. Christian Lebron Hematocrit (Bld) [Volume fraction] 38.7 % Normal 36.0-48.0 [facility] Comment on above: Performed By: #### Khadar MA2 #### [facility] [address] [address] [address] Christian Lebron Hemoglobin (Bld) [Mass/Vol] 12.3 g/dL Normal 12.0-16.0 [facility] Comment on above: Performed By: #### Khadar MA2 #### [facility] [address] [address] [address] Christian Lebron IG # 0.04 10e3/ul Critically high 0.00-0.03 [facility] Comment on above: Performed By: #### M MA2 #### [facility] [address] [place] [address] Dr. Christian Lebron IG % 0.4 % Normal 0.0-0.5 [facility] Comment on above: Performed By: #### M MA2 #### [facility] [address] [place] [address] Dr. Christian Lebron LYMPH # 2.0 103/ul Normal 1.2-3.8 [facility] Comment on above: Performed By: #### Khadar MA2 #### [facility] [address] [place] [address] Dr. Christian Lebron Lymphocytes/100 WBC (Bld) 22.0 % Normal 20.5-60.0 [facility] Comment on above: Performed By: #### Khadar HORNE2 #### [facility] [address] [place] [address] Dr. Christian Lebron MANUAL DIFF REQ NO Normal [facility] Comment on above: Performed By: #### Khadar HORNE2 #### [facility] [address] [place] [address] Dr. Christian Lebron MCH (RBC) [Entitic mass] 29.0 pg Normal 26.7-34.0 [facility] Comment on above: Performed By: #### Khadar HORNE2 #### [facility] [address] [place] [address] Dr. Christian Lebron MCHC (RBC) [Mass/Vol] 31.8 g/dL Normal 29.9-35.2 [facility] Comment on above: Performed By: #### M OZZIE2 #### [facility] [address] [place] [address] Dr. Christian Lebron MCV (RBC) [Entitic vol] 91.3 fL Normal 81.0-99.0 [facility] Comment on above: Performed By: #### M MA2 #### [facility] [address] [place] [address] Dr. Christian Lebron MONO # 0.8 103/ul Normal 0.3-0.8 [facility] Comment on above: Performed By: #### M OZZIE2 #### [facility] [address] [address] [address] Christian Lebron Monocytes/100 WBC (Bld) 8.7 % Normal 1.7-12.0 [facility] Comment on above: Performed By: #### Khadar MA2 #### [facility] [address] [address] [address] Christian Lebron NEUT # 6.2 103/ul Normal 1.4-6.5 [facility] Comment on above: Performed By: #### M MA2 #### [facility] [address] [address] [address] Christian Lebron Neutrophils/100 WBC (Bld) 67.4 % Normal 43.0-75.0 [facility] Comment on above: Performed By: #### Khadar HORNE2 #### [facility] [address] [place] [address] Dr. Christian Lebron Platelet mean volume (Bld) [Entitic vol] 11.9 fL Normal 9.5-13.5 [facility] Comment on above: Performed By: #### Khadar MA2 #### [facility] [address] [address] [address] Christian Lebron PLT 175 103/ul Normal 150-450 [facility] Comment on above: Performed By: #### Khadar MA2 #### [facility] [address] [place] [address] Dr. Christian Lebron RBC 4.24 106/ul Normal 4.20-5.40 [facility] Comment on above: Performed By: #### Khadar MA2 #### [facility] [address] [place] [address] Dr. Christian Lebron WBC 9.1 103/ul Normal 4.0-11.0 [facility] Comment on above: Performed By: #### Khadar HORNE2 #### [facility] [address] [place] [address] HEAD WO CONon [...] by: YAQUELIN ANSARI Date: 2021-01-31 22:45 Normal [facility] ECHO LIMITED STUDYon 021 ECHO LIMITED STUDY Patient: CARLEY QUINTANILLA Exam Date: 02/01/2021 : 1940 Gender:F Ordering : DR. LULU FRIEDMAN . Admission #: [id number] Family : DR KALI MAHARAJ M.D. Order #: [id number] CLICK HERE TO VIEW EXAM ECHOCARDIOGRAM REPORT [...] Area(A4C): 15.60 cm2 Left Atrium Systolic Volume(A2C): 83822 mm3 Left Atrium Systolic Volume(A4C): 75810 mm3 Mitral Valve Right Ventricle Aorta AO Root Diam: 3.10 cm Aortic Valve Tricuspid Valve Pulmonic Valve Right Atrium Dictated by: Max Carbone M.D. on 02/01/2021 at 13:45 Approved by: Max Carbone M.D. on 02/01/2021 at 13:51 Normal [facility] ER URINE PROFILEon 1 Bilirubin Ql (U) Negative Normal NEGATIVE [facility] Comment on above: Performed By: #### E RUR #### [facility] [address] [place] [address] Lauri Nascimento Clarity (U) CLEAR Normal CLEAR [facility] Comment on above: Performed By: #### E RUR #### [facility] [address] [id number] Lauri Pily Color (U) LT. YELLOW Normal YELLOW [facility] Comment on above: Performed By: #### E RUR #### [facility] [address] [place], [place] [id number] Lauri Nascimento ERUAHD A micrscopic examina tion will be performed if indicated. Normal [facility] Comment on above: Performed By: #### E RUR #### [facility] [address] [place] [address] Lauri Pily Glucose Ql (U) Negative Normal NEGATIVE [facility] Comment on above: Performed By: #### E RUR #### [facility] [address] [place] [address] Lauri Pily Hemoglobin Ql (U) Negative Normal NEGATIVE [facility] Comment on above: Performed By: #### E RUR #### [facility] [address] [place] [address] Lauri Pily Ketones Ql (U) TRACE Abnormal NEGATIVE [facility] Comment on above: Performed By: #### E RUR #### [facility] [address] [place] [address] Lauri Pily LEUKOCYTES Negative Normal NEGATIVE [facility] Comment on above: Performed By: #### E RUR #### [facility] [address] [place] [address] Lauri Pily Nitrite Ql (U) Negative Normal NEGATIVE [facility] Comment on above: Performed By: #### E RUR #### [facility] [address] [place] [address] Lauri Pily pH (U) 5.0 [pH] Normal 5-9 [facility] Comment on above: Performed By: #### E RUR #### [facility] [address] [place] [address] Lauri Pily SPEC GRAVITY 1.025 Normal 1.005-<=1. 025 [facility] Comment on above: Performed By: #### E RUR #### [facility] [address] [place] [address] Lauri Pily UA PROTEIN TRACE Normal NEGATIVE/ TRACE [facility] Comment on above: Performed By: #### E RUR #### [facility] [address] [place] [address] Lauri Pily UR MICRO IND NOT INDICATED Normal [facility] Comment on above: Performed By: #### E RUR #### [facility] [address] [place] [address] Lauri Pily Urobilinogen Qn (U) 0.2 {Irineo'U}/dL Normal 0.2 - 1. 0 [facility] Comment on above: Performed By: #### E RUR #### [facility] [address] [address] Lauri Nascimento PROF CHEM 8 (BAS METB)on Anion gap [Moles/Vol] 15.6 mmol/L Normal [facility] Comment on above: Performed By: #### M MA2 #### [facility] [address] [place] [address] Dr. Christian Lebron Calcium [Mass/Vol] 8.8 mg/dL Normal 8.4-10.2 [facility] Comment on above: Performed By: #### M MA2 #### [facility] [address] [place] [address] Dr. Christian Lebron Chloride [Moles/Vol] 109 mmol/L Critically high 98-107 [facility] Comment on above: Performed By: #### M MA2 #### [facility] [address] [place] [address] Dr. Christian Lebron CO2 [Moles/Vol] 23.1 mmol/L Normal 22.0-30.0 [facility] Comment on above: Performed By: #### M MA2 #### [facility] [address] [place] [address] Dr. Christian Lebron Creatinine [Mass/Vol] 1.49 mg/dL Critically high 0.52-1.04 [facility] Comment on above: Performed By: #### Khadar MA2 #### [facility] [address] [place] [address] Dr. Christian Lebron EGFR-AF PUERTO RICAN 41 mL/min/1.73m2 Critically low >=60 [facility] Comment on above: Performed By: #### M MA2 #### [facility] [address] [place] [address] Dr. Christian Lebron EGFR-NON AF PUERTO RICAN 34 mL/min/1.73m2 Critically low >=60 [facility] Comment on above: Performed By: #### M MA2 #### [facility] [address] [address] [address] Christian Lebron Glucose [Mass/Vol] 114 mg/dL Critically high 74-106 T [facility] Comment on above: Performed By: #### M MA2 #### [facility] [address] [address] [address] Christian Lebron Potassium [Moles/Vol] 3.7 mmol/L Normal 3.4-5.0 [facility] Comment on above: Performed By: #### M MA2 #### [facility] [address] [address] [address] Christian Lebron Sodium [Moles/Vol] 144 mmol/L Normal 137-145 [facility] Comment on above: Performed By: #### M MA2 #### [facility] [address] [place] [address] Dr. Christian Lebron Urea nitrogen [Mass/Vol] 28.0 mg/dL Critically high 7.0-17.0 [facility] Comment on above: Performed By: #### M MA2 #### [facility] [address] [address] [address] Christian Lebron Urea nitrogen/Creatinine [Mass ratio] 18.8 mg/mg Normal [facility] Comment on above: Performed By: #### M MA2 #### [facility] [address] [place] [address] Dr. Christian Lebron Rapid Covid-19 PCR (CVDRPD)o n 02-01-2021 SARS-CoV-2 (COVID-19) RNA ALLISON+probe Ql (Unsp spec) Not detected Normal NOT DETECTED [facility] Comment on above: Result Comment: This test is not yet approved or cleared by the [place] Food and Drug Administration (FDA). This test was developed by [employer], [place], [place]. The performance characteristics of this test were validated by [facility]. The results are not intended to be used as the sole means for clinical diagnosis or patient management decisions. [facility] is authorized under Clinical Laboratory Improvement Amendments (CLIA) to perform high- complexity testing. When diagnostic testing is negative, the possibility of a false negative should be considered in the context of a patient's recent exposures and the presence of clinical signs and symptoms consistent with SARS-CoV-2. Performed By: #### H OMCY #### [facility] [address] [address] [address] Christian Lebron TROPONIN, HIGH SENSITIVITYon 02-01-2021 HSTROP 15.4 pg/mL Normal 4.0-35.5 [facility] Comment on above: Result Comment: CUT- OFF POINTS HAVE BEEN ESTABLISHED BASED ON THE FOURTH UNIVERSAL DEFINITIONS OF MYOCARDIAL INFARCTION. THE UPPER REFERENCE LIMIT (URL) OF TROPONIN, DEFINED THE 99TH PERCENTILE OF cTnI DISTRIBUTION IN A REFERENCE POPULATION, HAS BEEN CONFIRMED THE DECISION THRESHOLD FOR OR DIAGNOSIS. Performed By: #### H STROPN #### [facility] [address] [address] Lauri Nascimento XR CHEST 2 Von 02-01-2021 [...] by: YAQUELIN ANSARI Date: 2021-01-31 22:40 Normal [facility] XR PELVIS 1_2 VIEWSon 2020 XR [...] by: YAQUELIN ANSARI Date: 2021-01-31 22:41 Normal [facility] BNPon 01-31-2021 Natriuretic peptide B (Bld) [Mass/Vol] 1162.0 pg/mL Normal <=1,800.0 [facility] Comment on above: Performed By: #### H OMCY #### [facility] [address] [address] [address] Christian Lebron CBC AUTO DIFFon 01-31-2021 BASO # 0.0 103/ul Normal 0.0-0.1 [facility] Comment on above: Performed By: #### E RUR #### [facility] [address] [place], [place] [id number] Lauri Pily Basophils/100 WBC (Bld) 0.4 % Normal 0.2-2.0 [facility] Comment on above: Performed By: #### E RUR #### [facility] [address] [place] [address] Lauri Pily EO # 0.1 103/ul Normal 0.0-0.7 [facility] Comment on above: Performed By: #### E RUR #### [facility] [address] [place], [place] [id number] Lauri Pily Eosinophils/100 WBC (Bld) 0.9 % Normal 0.9-7.0 [facility] Comment on above: Performed By: #### E RUR #### [facility] [address] [place] [address] Lauri Pily Erythrocyte distribution width (RBC) [Ratio] 13.8 % Normal 11.0-15.0 [facility] Comment on above: Performed By: #### E RUR #### [facility] [facility] [address] [place] [address] Lauri Pily Hematocrit (Bld) [Volume fraction] 42.8 % Normal 36.0-48.0 [facility] Comment on above: Performed By: #### E RUR #### [facility] [address] [place] [address] Lauri Pily Hemoglobin (Bld) [Mass/Vol] 13.8 g/dL Normal 12.0-16.0 [facility] Comment on above: Performed By: #### E RUR #### [facility] [address] [place], [place] [id number] Lauri Pily IG # 0.04 10e3/ul Critically high 0.00-0.03 [facility] Comment on above: Performed By: #### E RUR #### [facility] [address] [place] [address] Lauri Nascimento IG % 0.4 % Normal 0.0-0.5 [facility] Comment on above: Performed By: #### E RUR #### [facility] [address] [place], [place] [id number] Lauri Nascimento LYMPH # 2.3 103/ul Normal 1.2-3.8 [facility] Comment on above: Performed By: #### E RUR #### [facility] [address] [place], [place] [id number] Lauri Nascimento Lymphocytes/100 WBC (Bld) 21.7 % Normal 20.5-60.0 [facility] Comment on above: Performed By: #### E RUR #### [facility] [address] [place], [place] [id number] Lauri Nascimento MANUAL DIFF REQ NO Normal [facility] Comment on above: Performed By: #### E RUR #### [facility] [address] [place] [address] Lauri Nascimento MCH (RBC) [Entitic mass] 28.9 pg Normal 26.7-34.0 [facility] Comment on above: Performed By: #### E RUR #### [facility] [address] [place], [place] [id number] Lauri Nascimento MCHC (RBC) [Mass/Vol] 32.2 g/dL Normal 29.9-35.2 [facility] Comment on above: Performed By: #### E RUR #### [facility] [address] [place] [address] Lauri Nascimento MCV (RBC) [Entitic vol] 89.7 fL Normal 81.0-99.0 [facility] Comment on above: Performed By: #### E RUR #### [facility] [address] [place], [place] [id number] Lauri Gavinen MONO # 0.9 103/ul Critically high 0.3-0.8 [facility] Comment on above: Performed By: #### E RUR #### [facility] [address] [place], [place] [id number] Lauri Pily Monocytes/100 WBC (Bld) 8.0 % Normal 1.7-12.0 [facility] Comment on above: Performed By: #### E RUR #### [facility] [address] [place], [place] [id number] Lauri Nascimento NEUT # 7.4 103/ul Critically high 1.4-6.5 [facility] Comment on above: Performed By: #### E RUR #### [facility] [address] [place], [place] [address] Lauri Nascimento Neutrophils/100 WBC (Bld) 68.6 % Normal 43.0-75.0 [facility] Comment on above: Performed By: #### E RUR #### [facility] [address] [place] [address] Lauri Nascimento Platelet mean volume (Bld) [Entitic vol] 11.8 fL Normal 9.5-13.5 [facility] Comment on above: Performed By: #### E RUR #### [facility] [address] [place], [place] [address] Lauri Nascimento PLT 190 103/ul Normal 150-450 [facility] Comment on above: Performed By: #### E RUR #### [facility] [address] [place] [address] Lauri Nascimento RBC 4.77 106/ul Normal 4.20-5.40 [facility] Comment on above: Performed By: #### E RUR #### [facility] [address] [place], [place] [id number] Lauri Nascimento WBC 10.8 103/ul Normal 4.0-11.0 [facility] Comment on above: Performed By: #### E RUR #### [facility] [address] [place], [place] [id number] Lauri Gavinen PROF 14(COMP METB)on 021 Albumin [Mass/Vol] 3.6 g/dL Normal 3.5-5.0 [facility] Comment on above: Performed By: #### H OMCY #### [facility] [address] [place] [address] Dr. Christian Lebron Albumin/Globulin [Mass ratio] 1.0 {ratio} Normal [facility] Comment on above: Performed By: #### H OMCY #### [facility] [address] [address] [address] Christian Lebron ALP [Catalytic activity/Vol] 74 U/L Normal 38-126 [facility] Comment on above: Performed By: #### H OMCY #### [facility] [address] [address] [address] Christian Lebron ALT [Catalytic activity/Vol] 19 U/L Normal 9-52 [facility] Comment on above: Performed By: #### H OMCY #### [facility] [address] [address] [address] Christian Lebron Anion gap [Moles/Vol] 11.7 mmol/L Normal Th e [facility] Comment on above: Performed By: #### H OMCY #### [facility] [address] [address] [address] Christian Lebron AST [Catalytic activity/Vol] 16 U/L Normal 14-36 [facility] Comment on above: Performed By: #### H OMCY #### [facility] [address] [address] [address] Christian Lebron Bilirubin [Mass/Vol] 0.4 mg/dL Normal 0.2-1.3 [facility] Comment on above: Performed By: #### H OMCY #### [facility] [address] [address] [address] Christian Lebron Calcium [Mass/Vol] 9.3 mg/dL Normal 8.4-10.2 [facility] Comment on above: Performed By: #### H OMCY #### [facility] [address] [address] [address] Christian Lebron Chloride [Moles/Vol] 107 mmol/L Normal 98-107 [facility] Comment on above: Performed By: #### H OMCY #### [facility] [address] [address] [address] Christian Lebron CO2 [Moles/Vol] 26.0 mmol/L Normal 22.0-30.0 [facility] Comment on above: Performed By: #### H OMCY #### [facility] [address] [address] [address] Christian Lebron Creatinine [Mass/Vol] 1.63 mg/dL Critically high 0.52-1.04 [facility] Comment on above: Performed By: #### H OMCY #### [facility] [address] [address] [address] Christian Lebron EGFR-AF PUERTO RICAN 37 mL/min/1.73m2 Critically low >=60 [facility] Comment on above: Performed By: #### H OMCY #### [facility] [address] [address] [address] Christian Lebron EGFR-NON AF PUERTO RICAN 30 mL/min/1.73m2 Critically low >=60 [facility] Comment on above: Performed By: #### H OMCY #### [facility] [address] [address] [address] Christian Lebron Globulin (S) [Mass/Vol] 3.7 g/dL Normal [facility] Comment on above: Performed By: #### H OMCY #### [facility] [address] [address] [address] Christian Lebron Glucose [Mass/Vol] 96 mg/dL Normal 74-106 [facility] Comment on above: Performed By: #### H OMCY #### [facility] [address] [address] [address] Christian Lebron Potassium [Moles/Vol] 3.7 mmol/L Normal 3.4-5.0 [facility] Comment on above: Performed By: #### H OMCY #### [facility] [address] [address] [address] Christian Lebron Protein [Mass/Vol] 7.3 g/dL Normal 6.1-8.2 [facility] Comment on above: Performed By: #### H OMCY #### [facility] [address] [address] [address] Christian Lebron Sodium [Moles/Vol] 141 mmol/L Normal 137-145 [facility] Comment on above: Performed By: #### H OMCY #### [facility] [address] [address] [address] Christian Lebron Urea nitrogen [Mass/Vol] 31.0 mg/dL Critically high 7.0-17.0 [facility] Comment on above: Performed By: #### H OMCY #### [facility] [address] [place] [address] Dr. Christian Lebron Urea nitrogen/Creatinine [Mass ratio] 19.0 mg/mg Normal [facility] Comment on above: Performed By: #### H OMCY #### [facility] [address] [place] [address] Dr. Christian Lebron PROTIMEon 01-31-2021 INR Coag (PPP) [Relative time] {INR} Normal [facility] Comment on above: Performed By: #### H OMCY #### [facility] [address] [place] [address] Dr. Christian Lebron INR GUIDELINES SEE BELOW Normal [facility] Comment on above: Result Comment: EVER RED INR: 2.0 - 3.0 CONDITIONS NOT LISTED BELOW 2.5 - 3.5 FOR PROSTHETIC HEART VALVE REPLACEMENT 2.5 - 3.5 RECURRENT THROMBOSIS Performed By: #### H OMCY #### [facility] [address] [place] [address] Dr. Christian Lebron PT Coag (PPP) [Time] 10.0 s Normal 9.0-11.6 [facility] Comment on above: Performed By: #### H OMCY #### [facility] [address] [place] [address] Dr. Christian Lebron PTTon 01-31-2021 aPTT Coag (Bld) [Time] 28.2 s Normal 22.3-36.2 Th [facility] Comment on above: Performed By: #### H OMCY #### [facility] [address] [place] [address] Dr. Christian Lebron TROPONIN, HIGH SENSITIVITYon 01-31-2021 HSTROP 15.5 pg/mL Normal 4.0-35.5 [facility] Comment on above: Result Comment: CUT- OFF POINTS HAVE BEEN ESTABLISHED BASED ON THE FOURTH UNIVERSAL DEFINITIONS OF MYOCARDIAL INFARCTION. THE UPPER REFERENCE LIMIT (URL) OF TROPONIN, DEFINED THE 99TH PERCENTILE OF cTnI DISTRIBUTION IN A REFERENCE POPULATION, HAS BEEN CONFIRMED THE DECISION THRESHOLD FOR OR DIAGNOSIS. Performed By: #### H OMCY #### [facility] [address] [address] [address] Christian Lebron TSHon 01-31-2021 TSH 3.025 uIU/mL Normal 0.470-4.68 0 [facility] Comment on above: Performed By: #### H OMCY #### [facility] [address] [address] [address] Christian Lebron TSH RANGE SEE BELOW Normal [facility] Comment on above: Result Comment: <0.3 4 UIU/ml HYPERTHYROID 0.34-5.60 UIU/ml EUTHYROID >5.60 UIU/ml HYPOTHYROID Performed By: #### H OMCY #### [facility] [address] [address] [address] Christian Lebron Vital Signs Date Time Vital Sign Value Performing Clinician Facility 11-14-2023 17:04-0500 Body height 162.6 cm Ismael Aquino DPM Work Phone: [facility] 11-14-2023 17:04-0500 Body mass index (BMI) [Ratio] 29.52 kg/m2 Ismael Aquino DPM Work Phone: [facility] 11-14-2023 17:04-0500 Body weight 78.02 kg Ismael Aquino DPM Work Phone: [facility] 11-14-2023 17:04-0500 Diastolic blood pressure 80 mm[Hg] Ismael Aquino DPM Work Phone: [facility] 11-14-2023 17:04-0500 Heart rate 77 /min Ismael Aquino DPM Work Phone: [facility] 11-14-2023 17:04-0500 Systolic blood pressure 123 mm[Hg] Ismael Aquino DPM Work Phone: [facility] 09-26-2023 12:00-0500 Body height 167.64 cm Sergio Escudero Other [facility] Other 09-26-2023 12:00-0500 Body mass index (BMI) [Ratio] 25.01 kg/m2 Sergio Escudero Other [facility] Other 09-26-2023 12:00-0500 Body temperature 96.1 [degF] Sergio Escudero Other [facility] Other 09-26-2023 12:00-0500 Body weight 70.31 kg Sergio Escudero Other [facility] Other 09-26-2023 12:00-0500 Diastolic blood pressure 62 mm[Hg] Sergio Escudero Other [facility] Other 09-26-2023 12:00-0500 SaO2% (BldA) [Mass fraction] 99 % Sergio Escudero Other [facility] Other 09-26-2023 12:00-0500 Systolic blood pressure 120 mm[Hg] Sergio Escudero Other [facility] Other 03-20-2023 11:30-0400 Body height 167.64 cm Raysa Robins Other [facility] Other 03-20-2023 11:30-0400 Body mass index (BMI) [Ratio] 25.01 kg/m2 Raysa Robins Other [facility] Other 03-20-2023 11:30-0400 Body temperature 97.8 [degF] Raysa Robins Other [facility] Other 03-20-2023 11:30-0400 Body weight 70.31 kg Raysa Robins Other [facility] Other 03-20-2023 11:30-0400 Diastolic blood pressure 86 mm[Hg] Raysa Robins Other [facility] Other 03-20-2023 11:30-0400 SaO2% (BldA) [Mass fraction] 99 % Raysa Robins Other [facility] Other 03-20-2023 11:30-0400 Systolic blood pressure 122 mm[Hg] Raysa Robins Other [facility] Other 09-21-2022 12:15-0500 Body height 167.64 cm Abdulaziz Alvarez MD Work Phone: [facility] 250 DO Work Phone: 09-21-2022 12:15-0500 Body mass index (BMI) [Ratio] 24.05 kg/m2 Abdulaziz Alvarez MD Work Phone: [facility] 250 DO Work Phone: 09-21-2022 12:15-0500 Body surface area Derived from formula 1.76 m2 Abdulaziz Alvarez MD Work Phone: [facility] 250 DO Work Phone: 09-21-2022 12:15-0500 Body weight 67.59 kg Abdulaziz Alvarez MD Work Phone: [facility] 250 DO Work Phone: 09-21-2022 12:15-0500 Diastolic blood pressure 78 mm[Hg] Abdulaziz Alvarez MD Work Phone: [facility] 250 DO Work Phone: 09-21-2022 12:15-0500 Heart rate 84 /min Abdulaziz Alvarez MD Work Phone: [facility] 250 DO Work Phone: 09-21-2022 12:15-0500 Systolic blood pressure 126 mm[Hg] Abdulaziz Alvarez MD Work Phone: [facility] [employer] 250 DO Work Phone: 09-12-2022 11:45-0500 Body height 167.64 cm Sergio Escudero Other [facility] Other 09-12-2022 11:45-0500 Body mass index (BMI) [Ratio] 27.44 kg/m2 Sergio Escudero Other [facility] Other 09-12-2022 11:45-0500 Body temperature 97.8 [degF] Sergio Escudero Other [facility] Other 09-12-2022 11:45-0500 Body weight 77.11 kg Sergio Escudero Other [facility] Other 09-12-2022 11:45-0500 Diastolic blood pressure 68 mm[Hg] Sergio Escudero Other [facility] Other 09-12-2022 11:45-0500 SaO2% (BldA) [Mass fraction] 98 % Sergio Escudero Other [facility] Other 09-12-2022 11:45-0500 Systolic blood pressure 116 mm[Hg] Sergio Escudero Other [facility] Other 08-14-2022 12:47-0500 Diastolic blood pressure 71 mm[Hg] DO Edward Bernstein Work Phone: [facility] 08-14-2022 12:47-0500 Systolic blood pressure 177 mm[Hg] DO Edward Bernstein Work Phone: [facility] 08-14-2022 12:00-0500 Body temperature 98.3 [degF] DO Edward Bernstein Work Phone: [facility] 08-14-2022 12:00-0500 Heart rate 79 /min DO Edward Bernstein Work Phone: [facility] 08-14-2022 12:00-0500 Respiratory rate 16 /min DO Edward Bernstein Work Phone: [facility] 08-14-2022 12:00-0500 SaO2% (BldA) [Mass fraction] 98 % DO Edward Bernstein Work Phone: [facility] 08-14-2022 04:50-0500 Body weight 66.6 kg DO Edward Bernstein Work Phone: [facility] 08-13-2022 20:45-0500 Body temperature 97.8 [degF] DO Edward Bernstein Work Phone: [facility] 08-13-2022 20:45-0500 Diastolic blood pressure 68 mm[Hg] DO Edward Bernstein Work Phone: [facility] 08-13-2022 20:45-0500 Heart rate 80 /min DO Edward Bernstein Work Phone: [facility] 08-13-2022 20:45-0500 Respiratory rate 20 /min DO Edward Bernstein Work Phone: [facility] 08-13-2022 20:45-0500 SaO2% (BldA) [Mass fraction] 99 % DO Edward Bernstein Work Phone: [facility] 08-13-2022 20:45-0500 Systolic blood pressure 188 mm[Hg] DO Edward Bernstein Work Phone: [facility] 08-13-2022 11:50-0500 Body height 167.64 cm DO Edward Bernstein Work Phone: [facility] 08-13-2022 06:00-0500 Body weight 68.8 kg DO Edward Bernstein Work Phone: [facility] Encounters Encounter Date Encounter Type Care Provider Facility Start: 01-29-2024 End: 01-29-2024 ambulatory KALI MAHARAJ Not Available Start: 01-21-2024 End: 01-21-2024 ambulatory YULIA D BEJ Not Available Start: 11-14-2023 End: 11-14-2023 ambulatory ISMAEL AQUINO Not Available Start: 11-14-2023 End: 11-14-2023 Patient encounter procedure Ismael Aquino DPM Work Phone: [facility] Comment on above: PVD (peripheral vasc ular disease) ([facility]) (Primary Dx); Onychomycosis; Toe pain, left; Toe pain, right; Venous insufficiency Start: 11-14-2023 Chart abstracting Ismael esetvez DPM Work Phone: [facility] Start: 11-11-2023 Chart abstracting Ismael estevez DPM Work Phone: [facility] Start: 10-16-2023 End: 10-16-2023 ambulatory KALI MAHARAJ Not Available Start: 10-01-2023 End: 10-01-2023 ambulatory YULIA D BEJ Not Available Start: 09-26-2023 Office outpatient vi sit 15 minutes Sergio JAMISON [facility] Start: 09-26-2023 End: 09-26-2023 ambulatory Raysa Robins Facility:[facility] Start: 09-26-2023 End: 09-26-2023 ambulatory II Kali Maharaj Work Phone: [facility] Other Start: 09-26-2023 End: 09-26-2023 Patient encounter procedure II Kali Maharaj Work Phone: [facility] Start: 03-20-2023 End: 03-20-2023 Patient encounter procedure Raysa Gibbonsshanice [facility] V[facility] Surgery Start: 03-20-2023 End: 03-20-2023 ambulatory II Kali Maharaj Work Phone: [facility] Other Start: 03-13-2023 ambulatory Abdulaziz Alvarez Facility : Start: 11-10-2022 Chart Update Abdulaziz Alvarez MD Work Phone: [facility] 250 DO Work Phone: Start: 10-30-2022 Telephone encounter Abdulaziz day MD Work Phone: [facility] 600 DO Work Phone: Start: 10-22-2022 Patient encounter procedure Abdulaziz Alvarez MD Work Phone: [facility] 250 DO Work Phone: Start: 09-21-2022 ambulatory Abdulaziz Alvarez Facility : Start: 09-21-2022 Office outpatient vi sit 25 minutes Abdulaziz Alvarez MD Work Phone: [facility] 250 DO Work Phone: Start: 09-18-2022 Chart Update Abdulaziz Alvarez MD Work Phone: [facility] 250 DO Work Phone: Start: 09-14-[address] Kali Maharaj II Facility:[id number] Start: 09-12-2022 End: 09-12-2022 ambulatory Sergio Escudero Other [facility] Other Start: 09-12-2022 Office outpatient vi sit 15 minutes Sergio Escudero [facility] Vascular Surgery Start: 08-14-2022 ambulatory Abdulaziz Alvarez Facility :[id number] Start: 08-14-2022 Patient encounter procedure DO Edward Bernstein Work Phone: [facility] Start: 08-13-2022 End: 08-13-2022 ambulatory DO Edward Bernstein Work Phone: [facility] Work Phone: Start: 08-13-2022 End: 08-13-2022 Patient encounter procedure DO Edward Bernstein Work Phone: [facility] Start: 08-12-2022 ambulatory Cintron Alvarez Facility :[id number] Start: 08-11-2022 ambulatory Cintron Alvarez Facility :[id number] Start: 08-10-2022 ambulatory Cintron Alvarez Facility :[id number] Start: 08-10-2022 End: 08-14-2022 Evaluation and management of inpatient DO Edward Bernstein Work Phone: [facility] Start: 12-26-2021 End: 12-26-2021 ambulatory Jhonatan Oakes Other [facility] Other Start: 12-26-2021 Telephone encounter Jhonatan Oakes [facility] Vascular Surgery Start: 2021 End: 08-24-2021 ambulatory [...] End: 09-05-2018 Patient encounter procedure DEFAULT PHYSICIAN Facility:[facility] Procedures Date Procedure Procedure Detail Performing Clinician Start: 09-26-2023 Doppler ultrasonogra phy of bilateral carotid arteries II Kali Nicko Work Phone: Start: 08-10-2022 Doppler ultrasonogra phy [...] Office Visit [facility] [address] [facility] [address] [place] [address] Kali Maharaj MD [address] [facility] 110 [place] [address] [facility] Start: 01-23-2024 End: 01-23-2024 Patient encounter procedure 01/23/2024 4:10 PM EDT Procedure Visit [facility] [address] [facility] 120 [place] [address] Ismael Aquino DPKhadar [address] [facility] 5 [place] [address] [facility] Start: 12-10-2023 End: 12-10-2023 Patient encounter procedure 12/10/2023 2:00 PM EST Office Visit [facility] [address] [place] [address] Yulia Mccray MD [address] [facility] 111 [place] [address] [facility] Start: 11-21-2023 Medicare Annual Wellness (AWV) Medicare Annual Wellness (AWV) [facility] Start: 11-14-2023 End: 11-14-2023 Patient encounter procedure 11/14/2023 4:50 PM EST Procedure Visit [facility] [address] [facility] 120 [place] [id number] Ismael Aquino, DPM [address] [address] [facility] Start: 11-11-2023 End: 11-11-2023 Patient encounter procedure 11/11/2023 1:50 PM EST Procedure Visit [facility] [address] [place] [id number] Ismael Aquino DPM [address] [address] [facility] Start: 03-20-2023 Doppler ultrasonography of bilateral carotid arteries US carotid doppler BI [facility] Start: 03-20-2023 US.doppler Carotid arteries - bilateral [facility] Start: 03-13-2023 FUV, Provider: Abdulaziz Alvarez, Status: Pen, Time: 11:50 AM [facility]UV, Provider: Abdulaziz Alvarez, Status: Pen, Time: 11:50 AM [facility] 250 DO Work Phone: Start: 09-21-2022 FUV, Provider: Abdulaziz Alvarez, Status: Pen, Time: 11:50 AM [facility], Provider: Abdulaziz Alvarez, Status: Pen, Time: 11:50 AM [facility] 250 DO Work Phone: Start: 08-14-2022 [facility] Start: 08-13-2022 [facility] Start: 08-12-2022 Referral to vascular surgeon [facility] Start: 08-10-2022 Hospital admission [facility] Start: 08-10-2022 [facility] Patient Education Carotid Artery Disease Carotid Artery Disease ([place]) [facility] Work Phone: Patient referral [facility] Work Phone: Immunizations Immunization Date Immunization Notes Care Provider Fa [facility] 08-12-2023 Influenza, High-dose Seasonal, Quadrivalent, Preservative Free Ismael Aquino DPM Work Phone: [facility] 09-21-2022 Moderna SARS-CoV-2 Booster Vaccination Ismael Aquino DPM Work Phone: [facility] 07-27-2022 Fluzone High-Dose Quadrivalent 0.7 ML Intramuscular Suspension Prefilled Syringe Abdulaziz Alvarez MD Work Phone: [facility] 05-08-2022 Moderna COVID-19 Vac cine 100 MCG/0.5ML Intramuscular Suspension Abdulaziz Alvarez MD Work Phone: [facility] 250 DO Work Phone: 08-07-2021 influenza, high dose seasonal, preservative-free Abdulaziz Alvarez MD Work Phone: [facility] 250 DO Work Phone: 08-04-2021 Moderna COVID-19 Vac cine 100 MCG/0.5ML Intramuscular Suspension Abdulaziz Alvarez MD Work Phone: [facility] 250 DO Work Phone: 11-23-2020 Moderna COVID-19 Vac cine 100 MCG/0.5ML Intramuscular Suspension Abdulaziz Alvarez MD Work Phone: [facility] 250 DO Work Phone: 10-21-2020 Moderna COVID-19 Vac cine 100 MCG/0.5ML Intramuscular Suspension Abdulaziz Alvarez MD Work Phone: [facility] 250 DO Work Phone: 07-05-2020 zoster vaccine recombinant Abdulaziz Alvarez MD Work Phone: [facility] 07-01-2020 influenza, high dose seasonal, preservative-free Abdulaziz Alvarez MD Work Phone: [facility] 250 DO Work Phone: 07-01-2020 Influenza, High-dose Seasonal, Quadrivalent, Preservative Free Ismael Aquino DPM Work Phone: [facility] 06-22-2019 Seasonal trivalent influenza vaccine, adjuvanted, preservative free Abdulaziz Alvarez MD Work Phone: [facility] 07-21-2018 influenza, high dose seasonal, preservative-free Abdulaizz Alvarez MD Work Phone: [facility] 250 DO Work Phone: 06-06-2018 influenza, high dose seasonal, preservative-free Abdulaziz Alvarez MD Work Phone: [facility] 06-18-2017 influenza, high dose seasonal, preservative-free Abdulaziz Alvarez MD Work Phone: [facility] [facility] 06-18-2017 pneumococcal polysaccharide vaccine, 23 valent Abdulaziz Alvarez MD Work Phone: [facility] 07-13-2016 influenza, high dose seasonal, preservative-free Abdulaziz Alvarez MD Work Phone: [facility] 07-23-2015 pneumococcal conjuga te vaccine, 13 valent Abdulaziz Alvarez MD Work Phone: [facility] 07-07-2015 influenza, injectabl e, quadrivalent, preservative free Ismael Aquino DPM Work Phone: [facility] 07-03-2013 influenza, seasonal, injectable, preservative free Ismael Aquino DPM Work Phone: [facility] 10-07-2010 pneumococcal polysaccharide vaccine, 23 valent Ismael Aquino DPM Work Phone: [facility] 07-20-2010 seasonal influenza, intradermal, preservative free Ismael Aquino DPKhadar Work Phone: [facility] Healthcare Payers Date Payer Category Payer Medicaid [id number] 2017 Medicare HUMANA MEDICARE ADVANTAGE HU[employer]NA MEDICARE [id number] 2017-Present [address] [address] [place] [address] [id number] 1959 Private Health Insurance [id number] 1959 Self-pay 1940 Unknown [id number] 2.16.840.1.961366.3.579.2. 647 1940 Unknown [id number] 2.16.840.1.157882.3.579.2. 732 1940 Unknown [id number] 2.16.840.1.980403.3.579.2. 593 1940 Unknown [id number] 2.16.840.1.207516.3.579.2. 593 1940 Unknown [id number] 2.16.840.1.802934.3.579.2. 593 1940 Unknown [id number] 2.16.840.1.951866.3.579.2. 593 1940 Unknown [id number] 2.16.840.1.634255.3.579.2. 593 1940 Unknown [id number] 2.16.840.1.799836.3.579.2. 593 1940 Unknown [id number] 2.16.840.1.620488.3.579.2. 593 1940 Unknown [id number] 2.16.840.1.262495.3.579.2. 356 1940 Unknown [id number] 2.16.840.1.078956.3.579.2. 356 1940 Unknown [id number] 2.16.840.1.015127.3.579.2. 356 1940 Unknown [id number] 2.16.840.1.737701.3.579.2. 356 1940 Unknown [id number] 2.16.840.1.754943.3.579.2. 356 1940 Unknown [id number] 2.16.840.1.744007.3.579.2. 356 1940 Unknown [id number] 2.16.840.1.846682.3.579.2. 356 1940 Unknown [id number] 2.16.840.1.913263.3.579.2. 356 1940 Unknown [id number] 2.16.840.1.055721.3.579.2. 1259 1940 Unknown [id number] 2.16.840.1.861762.3.579.2. 1259 1940 Unknown [id number] 2.16.840.1.924922.3.579.2. 1259 1940 Unknown [id number] 2.16.840.1.797456.3.579.2. 1259 1940 Unknown [id number] 2.16.840.1.176029.3.579.2. 1259 Medicare Medicare [id number] Unknown Unknown Insurance No Card [id number] Unknown [id number] 2.16.840.1.927796.3.579.2. 531 Unknown [id number] 2.16.840.1.559839.3.579.2. 531 Social History Date Type Detail Facility Start: 04-10-2023 End: 10-16-2023 Sex Assigned At [facility] Other Start: 08-13-2022 End: 08-13-2022 Tobacco smoking status NHIS Smoker (finding) [facility] Start: 1940 Sex Assigned At Female F [facility] Start: 04-10-2023 End: 10-16-2023 Consumes alcohol occasionally Consumes alcohol occasionally -[facility] 250 DO Work Phone: Comment on above: coffee 1 cup daily; 1 pack per week; Start: 10-07-1987 Tobacco smoking stat NHIS Smokes tobacco daily [facility] Start: 10-07-1987 [...] Facility 08-14-2022 Functional status Patient at Baseline [facility] Work Phone: 08-10-2022 Functional status Patient at Baseline [facility] Work Phone: Mental Status Date Assessment Result Facility 08-14-2022 Cognitive function Cognitive Sta tus Patient at Baseline [facility] Work Phone: 08-10-2022 Cognitive function Cognitive Sta tus Patient at Baseline [facility] Work Phone: Clinical Notes 08-10-2022 to 11-14-2023 Ismael Aquino DPM - 11/14/2023 4:50 PM EST Note Date & Type Note Facility 11-14-2023 History of Presen t illness Narrative Patient: Carley Abrahamhill : 1940 PCP: Kali Maharaj MD SUBJECTIVE [...] Bilateral carotid artery occlusion BMI 30.0-30.9,adult Cataract 2011 Chronic airway obstruction (CMS/HCC) not elsewhere classified Chronic pancreatitis (CMS/HCC) Congenital mitral insufficiency Convulsion (CMS/HCC) COPD (chronic obstructive pulmonary disease) (CMS/HCC) Coronary artery stenosis (CMS/HCC) 2017 Dr. Suraj Serrano Diastolic heart failure (CMS/HCC) unspecified Disease of thyroid gland (CMS/HCC) Disease of tricuspid valve Epilepsy (CMS/HCC) Esophageal reflux Essential hypertension, benign (CMS/HCC) Essential tremor and other specified forms of tremors Frequent falls GERD (gastroesophageal reflux disease) H/O complete eye exam 2013 Heart disease unspecified Hx of being hospitalized 05/28/2021 Syncope, UTI, KRISTAN Hyperlipidemia (CMS/HCC) Hypertension (CMS/HCC) Hypothyroidism, unspecified type (CMS/HCC) Localization-related (focal) (partial) symptomatic epilepsy and epileptic syndromes with simple partial seizures (CMS/HCC) without mention of intractable epilepsy Mixed hyperlipidemia (CMS/HCC) Occlusion and stenosis of left carotid artery without mention of cerebral infarction OM (onychomycosis) Peripheral vascular disease, unspecified (CMS/HCC) Precancerous lesion nosebridge PVD (peripheral vascular disease) (CMS/HCC) Renal injury Syncope 08/10/2022 Toe pain, bilateral [...] Ismael Aquino DPM documented in this encounter [facility] 09-26-2023 Evaluation note Encounter Date Diagnosis Assessment Notes Sep, Asymptomatic stenosis of right carotid artery (ICD-10 - I65.21) I recommend seeing this patient back in 1 year. I admonished her for smoking and offered her free resources to quit by the [facility]. She refused. There is no indication for any surgical intervention at this time. [facility] Other 06-14-2023 Evaluation note* Encounter Date Diagnosis [...] issues prior to her next scheduled appointment. [facility] Other 12-07-2022 Evaluation note* Encounter Date Diagnosis [...] for results in the next few weeks. [facility] Other 11-08-2022 Discharge summary Author Dee Kenney [facility] August 14, 2022 1:38pm Note Date/Time August 14, 2022 1 :13pm [facility] [address] [place], [place] [address] Discharge Summary Signed Patient: Carley Quintanilla MR#: [id number] : 1940 Acct:[id number] Age/Sex: 81 / F Adm Date: 2 Loc: 4 Room: [address] [place] [address]: Dee Kenney MD Copies to: [...] Regular Additional Instructions: You should have a amBX 30 Day Tile Layer Supervisor prior to discharge. Instructions: Carotid Artery Disease, [...] this time does not work for you. Dawn.) Documented By: Dee Kenney MD 08/14/22 1309 Signed By: <Electronically signed by Dee Kenney MD> 08/14/22 1336 [facility] Work Phone: 1(582) 105-378611-08-2022 Progress note Author Sergio Escudero [facility] August 14, 2022 11:52am Note Date/Time August 14, 2022 1 0:02am [facility] [address] [place] [address] Vascular Surgery Progress Note Signed with Addenda Patient: Carley Quintanilla MR#: [id number] : 1940 Acct:[id number] Age/Sex: 81 / F Adm Date: 2 Loc: 4N Room: 9P0347-0 Type: ADM IN Attending Dr: Dee Kenney [...] Addendum Documented By: Sergio Escudero MD 08/14/22 115 Addendum Signed By: <Electronically signed by Sergio [...] signed by Sergio Escudero MD> 08/14/22 1002 [facility] Work Phone: 1(511) 116-645011-07-2022 Progress note Author Dee Kenney [facility] August 13, 2022 12:59pm Note Date/Time August 13, 2022 1 2:44pm [facility] [address] [place] [address] Hospitalist Progress Note Signed Patient: Carley Quintanilla MR#: [id number] : 1940 Acct:[id number] Age/Sex: 81 / F Adm Date: 2 Loc: Room: [address] [place] [address] Type: ADM IN Attending Dr: Dee Kenney [...] Dose Route Start Last Admin Trade Name Ikerq PRN Reason Stop Dose Admin Acetaminophen 650 mg 08/10/22 20:17 Acetaminophen 325 Mg Tablet PO 08/10/23 20:16 Q6HR PRN Pain Scale 1 - 3 or fever Amlodipine Besylate 10 mg 08/13/22 09:00 08/13/22 11:46 Amlodipine 10 Mg Tablet PO 08/13/23 08:59 10 mg DAILY CARRI Administration Aspirin 81 mg 08/11/22 09:00 08/13/22 11:47 Aspirin 81 Mg Tablet.Dr PO 08/11/23 08:59 [...] 08/11/22 09:00 08/13/22 11:45 Omeprazole 20 Mg Capsule.Dr PO 08/11/23 08:59 [...] <Electronically signed by Dee Kenney MD> 08/13/22 1251 [facility] Work Phone: 1(688) 554-925011-07-2022 Progress note Author Abdulaziz Alvarez [facility] August 13, 2022 11:03am Note Date/Time August 13, 2022 1 1:03am [facility] [address] [place] [address] Cardiology Progress Note Signed Patient: Carley Quintanilla MR#: [id number] : 1940 Acct:[id number] Age/Sex: 81 / F Adm Date: 2 Loc: 4N Room: 3R5471-0 Type: ADM IN Attending Dr: Dee Kenney [...] cessation education Documented By: Abdulaziz Alvarez MD, [facility] 2 1100 Signed By: <Electronically signed by [facility]> 08/13/22 1103 [facility] Work Phone: 1(655) 565-440511-07-2022 Consult note Author Sergio Escudero [facility] August 13, 2022 9:29am Note Date/Time August 13, 2022 8 :53am [facility] [address] [place] [address] Vascular Surgery Consult Note Signed Patient: Carley Quintanilla MR#: [id number] : 1940 Acct:[id number] Age/Sex: 81 / F Adm Date: 2 Loc: Room: [address] [place] [address] Type: ADM IN Attending Dr: Dee Kenney [...] negative unless noted below or in HPI PMFSH Vaccinated for COVID-19?: Yes Medical History HTN [...] signed by Sergio Escudero MD> 08/13/22 0929 [facility] Work Phone: 1(888) 268-624911-06-2022 Progress note Author Dee Kenney [facility] August 12, 2022 4:23pm Note Date/Time August 12, 2022 4 :18pm [facility] [address] [place] [address] Hospitalist Progress Note Signed Patient: Carley Quintanilla MR#: [id number] : 1940 Acct:[id number] Age/Sex: 81 / F Adm Date: 2 Loc: 4N Room: 8P5639-5 Type: ADM IN Attending Dr: Dee Kenney [...] 1,000 Ml IV 08/10/23 20:29 75 mls/hr .[id number] CARRI Administration Levothyroxine Sodium 75 mcg 08/11/22 [...] 09:00 08/12/22 09:09 Omeprazole [address]Dr BAZAN 08/11/23 08:59 20 mg DAILY CARRI Administration [...] PT/OT. Documented By: Dee Kenney MD 08/12/22 161 Signed By: <Electronically signed by Dee Kenney MD> 08/12/22 1623 [facility] Work Phone: 1(693) 761-109911-06-2022 Progress note Author Abdulaziz Alvarez [facility] August 12, 2022 10:01am Note Date/Time August 12, 2022 1 0:01am [facility] [address] [place] [address] Cardiology Progress Note Signed Patient: Carley Quintanilla MR#: [id number] : 1940 Acct:[id number] Age/Sex: 81 / F Adm Date: 2 Loc: Room: [address] [place] [address] Type: ADM IN Attending Dr: Dee Kenney [...] cessation education Documented By: Abdulaziz Alvarez MD, [facility] 2 0958 Signed By: <Electronically signed by [facility] Abdulaziz Alvarez> 08/12/22 1001 [facility] Work Phone: 1([phone]) 715-409311-05-2022 Progress note Author Dee Kenney [facility] August 11, 2022 2:19pm Note Date/Time August 11, 2022 2 :15pm [facility] [address] [place] [address] Hospitalist Progress Note Signed Patient: Carley Quintanilla MR#: [id number] : 1940 Acct:[id number] Age/Sex: 81 / F Adm Date: 2 Loc: Room: [address] [place] [address] Type: ADM IN Attending Dr: Dee Kenney [...] 1,000 Ml IV 08/10/23 20:29 75 mls/hr .[id number] CARRI Administration Levothyroxine Sodium 75 mcg 08/11/22 06:30 08/11/22 06:16 Levothyroxine 75 Mcg Tablet PO 08/11/23 06:29 75 mcg DAILY.0630 CARRI Administration Nicotine 1 each 08/11/22 09:00 08/11/22 09:07 Nicotine Patch 21 Mg/24hr 1 Each Patch.Td24 TRANSDERML 08/11/23 08:59 Not Given DAILY CARRI Omeprazole 20 mg 08/11/22 09:00 08/11/22 09:07 Omeprazole 20 Mg Capsule.Dr PO 08/11/23 08:59 [...] <Electronically signed by Dee Kenney MD> 08/11/22 1413 [facility] Work Phone: 1(610) 946-268111-05-2022 Consult note Author Abdulaziz Alvarez [facility] August 11, 2022 1:13pm Note Date/Time August 11, 2022 1 :09pm [facility] [address] [place], [place] [address] Cardiology Consult Note Signed Patient: Carley Quintanilla MR#: [id number] : 1940 Acct:[id number] Age/Sex: 81 / F Adm Date: 2 Loc: Room: [address] [place] [address] Type: ADM IN Attending Dr: Dee Kenney MD Copies to: MD Abdulaziz Ortiz II, MD, [facility] Dee Kenney MD~ Cardiology HPI History of [...] of hypertensionmanaged with Dr. Kali Maharaj in [facility]. She has been on diltiazem 360 mg daily. The patient has been stable since admission heart rate in the 50s. Diltiazem has been withheld Review of Systems Review of Systems Review of systems: 11 point review of system otherwise was normal. [facility] Vaccinated for COVID-19?: Yes Medical History (Updated [...] Lymph # (Auto) 0.9 L (1.00-4.8) x10E3/uL Traverse # (Auto) 0.6 (0.0-0.8) x10E3/uL Eos # [...] 400 / 400 Balance 1080 / 1080 1959 Intake: IV 1000 / 1000 1000 / 1000 Sodium Chloride 0.9% 1,000 ml 1 1000 / 1000 1000 / 1000 ,000 ml @ 75 mls/hr IV .[id number] CARRI Rx#:[id number] Oral 480 / 480 960 / 960 [...] Tobacco use Documented By: Abdulaziz Alvarez MD, [facility] 2 1304 Signed By: <Electronically signed by [facility] Abdulaziz Alvarez> 08/11/22 1313 [facility] Work Phone: 1(253) 806-782311-04-2022 History and physical note Author Dee Kenney [facility] August 10, 2022 8:17pm Note Date/Time August 10, 2022 8 :03pm [facility] [address] [place] [address] Hospitalist H&P Signed Patient: Carley Quintanilla MR#: [id number] : 1940 Acct:[id number] Age/Sex: 81 / F Adm Date: 2 Loc: Room: [address] [place] [address] Type: ADM IN Attending Dr: Dee Kenney [...] than mentioned in history of presenting illness [facility] Medical History (Updated 08/10/22 @ 20:14 by [...] % (Auto) 9.5 % (.) 08/10/22 17:15 Traverse % (Auto) 5.7 % (.) 08/10/22 17:15 Eos % (Auto) 0.7 % (.) 08/10/22 17:15 Baso % (Auto) 0.5 % (.) 08/10/22 17:15 Neut # (Auto) 8.3 x10E3/uL (1.8-7.7) H 08/10/22 17:15 Lymph # (Auto) 0.9 x10E3/uL (1.00-4.8) L 08/10/22 17:15 Traverse # (Auto) 0.6 x10E3/uL (0.0-0.8) 08/10/22 17:15 [...] pH 5.5 (5.0-9.0) 08/10/22 19:20 Ur Specific [place] 1.014 (1.001-1.030) 08/10/22 19:20 Urine Protein Negative [...] <Electronically signed by Dee Kenney MD> 08/10/222016 [facility] Work Phone: [facility]No [facility] Other Evaluation note* Diagnosis Onset Date Resolution Status KRISTAN (acute kidney injury) ac jen Bilateral carotid artery disease acute HTN (hypertension) acute Syncope acute Tobacco abuse acute [facility] Work Phone: Evaluation noteNo assessment information available [facility] Work Phone: Evaluation note* Diagnosis PVD (peripheral vascular disease) ([facility] Primary Unspecified peripheral vascular [...] History Foot Surgery [facility] Other History general Narrative - Reported* Type Description Date Medical History CAROTID STENOSIS BILATERAL Medical History hypertension Medical History hypercholesterolemia Medical History acid reflux Surgical History Foot Surgery Surgical History tonsillectomy Surgical History cataract Hospitalization History hypertension from [facility] Other Progress note Author Abdulaziz Alvarez [facility] August 14, 2022 5:26pm Note Date/Time August 14, 2022 5 :26pm [facility] [address] [place] [address] Cardiology Progress Note Signed Patient: Carley Quintanilla MR#: [id number] : 1940 Acct:[id number] Age/Sex: 81 / F Adm Date: 2 Loc: 4N Room: 0B3310-4 Type: DIS IN Attending Dr: Dee Kenney [...] cessation education Documented By: Abdulaziz Alvarez MD, [facility] 2 1725 Signed By: <Electronically signed by MD XENA Alvarez> 08/14/22 1726 [facility] Work Phone: Summary Purpose Family History No [...] and content) DATE CREATED AUTHOR 09/15/2018 [facility] DATE CREATED AUTHOR AUTHOR'S ORGANIZ ATION 02/02/2021 [facility] [facility] DATE CREATED AUTHOR AUTHOR'S ORGANIZ ATION 08/30/2021 [facility] pital DATE CREATED AUTHOR AUTHOR'S ORGANIZ ATION 09/22/2021 [facility] dical Specialist DATE CREATED AUTHOR AUTHOR'S ORGANIZ ATION 09/28/2022 [employer] DATE CREATED AUTHOR AUTHOR'S ORGANIZ ATION 03/18/2023 [facility] DATE CREATED AUTHOR AUTHOR'S ORGANIZ ATION 10/03/2023 [facility] DATE CREATED AUTHOR AUTHOR'S ORGANIZ ATION 01/31/2024 [facility] dical Specialists [facility] REASON FOR VISIT (unrecogniz ed section and [...] MD Admit Provider, Attending Provider Active Megan Geisert , RETAIL GREETING CARD MERCHANDISER Other Provider Active Kalina Gilbert , RETAIL GREETING CARD MERCHANDISER Other Provider Active Jhonatan Oakes MD Other Provider Active Raysa Robins , TEMPERATURE INSPECTOR-C Other Provider Active Shelby Unger MD Other Provider Active Sergio Escudero MD Other Provider Active Team Status: Active Member Role Status Dates Kali Maharaj II MD Primary Care Provider Active Abdulaziz Alvarez MD Attending Provider Active Team Status: Inactive Member Role Status Dates Edward Bernstein DO Emergency Provider Active Kali Maharaj II MD Primary Care Provider Active Dee Kenney MD Admit Provider, Attending Provider Active Meganana Rizot , RETAIL GREETING CARD MERCHANDISER Other Provider Active Kalina Nelson , RETAIL GREETING CARD MERCHANDISER Other Provider Active Jhonatan Oakes MD Other Provider Active Raysa Robins , TEMPERATURE INSPECTOR-C Other Provider Active Shelby Unger MD Other Provider Active Sergio Escudero MD Other Provider Active Team Status: Inactive Member Role Status Dates Kali Maharaj II MD Primary Care Provider Active Raysa Robins , TEMPERATURE INSPECTOR-C Attending Provider Active [employer] Boring Machine Helper Relationship Specialty Start Date End Date Kali Maharaj MD [address] [facility] [address] [place] [address] PCP - [employer] 12/05/22 Kali Maharaj MD [address] [facility] [address] [place] [address] PCP - General Internal Medicine 04/10/23 Sarah Lozada LSW Forensic Engineer Family Medicine 10/30/23 [employer] Machine Helper Relationship Specialty Start Date End Date Kali Maharaj MD [address] [facility] [address] [place] [address] PCP - [employer] 12/05/22 Kali Maharaj MD [address] [facility] [address] [place] [address] PCP - General Internal Medicine 04/10/23 Sarah Lozada LSW Forensic Engineer Family Medicine 10/30/23 [employer] Boring Machine Helper Relationship Specialty Start Date End Date Kali Maharaj MD [address] [facility] [address] [place] [address] PCP - [employer] 12/05/22 Kali Maharaj MD [address] [facility] [address] [place] [address] PCP - General Internal Medicine 04/10/23 Sarah Lozada LSW Forensic Engineer Family Medicine 10/30/23 Goals (unrecognized section and [...] BE BASED ON THE PRIMARY CLINICAL RECORDS. [employer] [facility]. provides no warranty or guarantee of the accuracy or completeness of information in this document.
--- NOTE | 2024-03-08 16:53 | ECG_ITS ---
The [facility] Test Date: 2024-03-08 Pat Name: CARLEY QUINTANILLA Department: Room: - Gender: Female Laboratory Administrative Director: : 1940 Requested By: 1854 Order Number: [id number] Reading MD: JASKARAN [place] Measurements Intervals [place] Rate: 81 P: 83 NM: 154 QRS: 77 QRSD: 92 T: 60 QT: 384 QTc: 422 Interpretive Statements 1100 Sinus rhythm 9110 normal ECG Compared to ECG 02/01/2021 18:47:46 T-wave abnormality no longer present Electronically Signed On 03-09-2024 6:49:31 EDT by JASKARAN [place]
--- NOTE | 2024-03-08 17:20 | CT_ITS ---
The [address] [address] Patient Name: CARLEY QUINTANILLA MRN: [id number] date: 1940 Sex: F Assigned Patient Location: ER Current Patient Location: .MAIN Accession/Order Number: [id number] Exam Date: 03/08/2024 17:30 Report Date: 03/08/2024 18:48 At the request of: STEVE MORENO Procedure: CT abdomen pelvis wo con EXAM: CT abdomen pelvis wo con TECHNIQUE: Axial CT images were obtained of the abdomen and pelvis without intravenous contrast. Sagittal and coronal reformatted images were also obtained. Dose reduction techniques were achieved by using automated exposure control and/or adjustment of mA and/or kV according to patient size and/or use of iterative reconstruction technique. HISTORY: right lower quadrant abd pain COMPARISON: None. FINDINGS: Lower chest: The lower lungs are clear. Liver: The liver is homogeneous with normal contours and normal size. Gallbladder: Status post cholecystectomy. No significant biliary dilatation. Pancreas: The pancreas is homogeneous without evidence for mass lesion or inflammation. Spleen: The spleen is unremarkable without evidence for mass lesion. Adrenal glands: The adrenal glands are unremarkable Kidneys and bladder: 4 cm cystic mass of the mid to lower pole left kidney. Unremarkable unenhanced right kidney. The ureters demonstrate normal caliber. The urinary bladder is unremarkable. GI Tract: Stomach is unremarkable. Visualized small bowel is unremarkable without evidence for obstruction or active inflammation. The appendix is unremarkable.The visualized portion of the large bowel is unremarkable. Reproductive: 8.9 cm cystic mass of the right adnexum. Lymph nodes: No retroperitoneal or abdominal lymphadenopathy. Vascular: The aorta is not dilated. Peritoneum: No free intraperitoneal air or fluid. No acute inflammation. Abdominal wall: Chronic mild superior plate compression deformity T12 vertebral body. Moderate degenerative changes of the right hip. CT/CT abdomen pelvis wo con IMPRESSION: Cystic mass in the right adnexum, likely an ovarian cyst. Further evaluation with pelvic ultrasound should be considered. No additional acute abdominal findings. Electronically authenticated by: CHANDRA ARREGUIN Date: 03/08/2024 18:48
--- NOTE | 2024-03-08 17:27 | ED_ITS ---
HPI HPI - Extremity Injury (Lower) General Chief Complaint: Extremity Injury, Lower Stated Complaint: LOWER EXTREMITY PAIN Time Seen by Provider: 03/08/24 16:43 Source: patient Mode of arrival: ambulance History of Present Illness HPI Narrative: The patient is a 83 years old female with history of hypertension edema well as a history of smoking cigarettes, is coming to the ER with a right hip pain that she mentioned that started over the last few hours while she was walking, the pain is in the right lower quadrant of her abdomen as well and in the right hip, she mentioned that it feels like a spasm that is sometimes coming and going and sometimes fixed, the patient presented to us by the EMS No history of fall or trauma Related Data Home Medications ?Medication ?Instructions ?Recorded ?Confirmed alendronate 70 mg tablet 70 mg PO DAILY 03/08/24 03/08/24 amlodipine 10 mg tablet 10 mg PO DAILY 03/08/24 03/08/24 aspirin 81 mg chewable tablet 1 tab PO DAILY 03/08/24 03/08/24 calcium carbonate 500 mg-vitamin 1 tab PO BID 03/08/24 03/08/24 D3 10 mcg (400 unit) tablet (Oyster Shell Calcium-Vitamin D3) donepezil 10 mg tablet 20 mg PO DAILY 03/08/24 03/08/24 hydralazine 25 mg tablet 25 mg PO TID 03/08/24 03/08/24 levothyroxine 75 mcg tablet 75 mcg PO DAILY 03/08/24 03/08/24 lisinopril 20 1 tab PO BID 03/08/24 03/08/24 mg-hydrochlorothiazide 12.5 mg tablet memantine 10 mg tablet 10 mg PO BID 03/08/24 03/08/24 [id number] acid 0.4 1 tab PO DAILY 03/08/24 03/08/24 mg-lycopene 300 mcg-lutein 250 mcg tablet ([employer] Senior) pantoprazole 40 mg tablet,delayed 40 mg PO DAILY 03/08/24 03/08/24 release paroxetine HCl 20 mg tablet 20 mg PO DAILY 03/08/24 03/08/24 simvastatin 20 mg tablet 20 mg PO DAILY 03/08/24 03/08/24 Allergies Allergy/AdvReac Type Severity Reaction Status Date / Time No Known Drug Allergies Allergy Verified 03/08/24 16:42 Opioid HPI Opioid Management Most Recent Pain and Opioid Data: Last Pain Scale 8 03/08/24 17:41 Last ED Pain Assessment 03/08/24 16:56 Last MAR Pain Assessment 03/08/24 17:41 Review of Systems ROS Status of ROS 10 or more systems reviewed and unremark able except as noted in history and below Exam Narrative Exam Narrative: Nurses notes and vital signs reviewed and patient is not hypoxic. General: Well-appearing and in no apparent distress. Skin: Warm, dry, no pallor noted. No rash. Head: Normocephalic, atraumatic. Neck: Supple, non-tender. Eye: Pupils are equal, round and EOMI. No scleral icterus. Ears, Nose, Mouth, and Throat: TM are clear, no nasal mucosal hypertrophy. Oral mucosa is moist, no posterior oropharynx erythema, uvula is mid-line Cardiovascular: Regular Rate and Rhythm without murmur, gallop or rub. Respiratory: No accessory muscle use or respiratory distress. Lungs are clear to auscultation, no wheezing, rales or rhonchi Chest Wall: no tenderness Back: No midline thoracic or lumbar vertebral tenderness. No CVA tenderness Musculoskeletal: normal ROM, no calf or popliteal tenderness, no lower extremity edema/swelling GI: Abdomen is soft, the patient have right lower quadrant tenderness as well as tenderness upon palpation of the groin area, it was noted that the patient have good anterior tibial pulse in the left foot as well as good femoral on the left side but the right-sided femoral and anterior tibial although the anterior tibial can be felt but is weaker than the left side, the patient have no tenderness no skin changes or any discoloration of the foot bilaterally Neurological: A&O x4. No cranial nerve dysfunction observed. No truncal ataxia. Moves all extremities. Sensation intact. Psychiatric: Cooperative and interactive. Normal mood and affect. Constitutional Vital Signs, click to edit/add: Last Vital Signs Temp 97.8 F 03/08/24 16:38 Pulse 82 03/08/24 16:38 Resp 20 03/08/24 16:38 BP 198/70 H 03/08/24 16:44 Pulse Ox 99 03/08/24 16:38 O2 Del Method Room Air 03/08/24 16:38 Course Vital Signs Vital signs: Vital Signs Temperature 97.8 F 03/08/24 16:38 Pulse Rate 82 06/02/24 16:38 Respiratory Rate 20 03/08/24 16:38 Blood Pressure 215/71 H 03/08/24 16:38 Pulse Oximetry 99 03/08/24 16:38 Oxygen Delivery Method Room Air 03/08/24 16:38 Temperature 97.8 F 03/08/24 16:38 Pulse Rate 82 03/08/24 16:38 Respiratory Rate 20 03/08/24 16:38 Blood Pressure 198/70 H 03/08/24 16:44 Pulse Oximetry 99 03/08/24 16:38 Oxygen Delivery Method Room Air 03/08/24 16:38 MDM - Extremity Injury (Lower) MDM Narrative Medical decision making narrative: The patient presentation with elevated blood pressure of 200s although she does have a history of chronically elevated blood pressure and it was challenging to control her blood pressure before But because of the right lower quadrant pain the patient had a CBC and chemistry ordered that shows no acute significant pathology but the patient CAT scan abdomen pelvis is pending The perceived the pain was nonspecific as I could not induce the pain with flexion of the hip or even abduction but with palpation of the right lower quadrant the pain was induced Patient provided initially with hydralazine to control her blood pressure and also provided with Toradol for the pain The patient EKG showing sinus rhythm with a heart rate of [address] elevation or depression [facility] called to make sure that they will read the CAT scan as soon as possible Discharge Plan Discharge Patient Disposition: Still a Patient
[2024-03-08 17:39] LABS: Basophils Absolute Auto 0.1 10^3/uL (0.0-0.1); Basophils Percent Auto 0.6 % (0.2-2.0); Eosinophils Absolute Auto 0.1 10^3/uL (0.0-0.7); Eosinophils Percent Auto 0.8 % (0.9-7.0); Hematocrit 41.5 % (36.0-48.0); Hemoglobin 13.8 g/dL (12.0-16.0); Immature Granulocytes Abs Auto 0.03 10^3/uL (0.00-0.03); Immature Granulocytes Pct Auto 0.3 % (0.0-0.5); Lymphocytes Absolute Auto 2.2 10^3/uL (1.2-3.8); Lymphocytes Percent Auto 19.8 % (20.5-60.0); Mean Corpuscular HGB Conc 33.3 g/dL (29.9-35.2); Mean Corpuscular Hemoglobin 30.3 pg (26.7-34.0); Mean Corpuscular Volume 91.2 fL (81.0-99.0); Mean Platelet Volume 10.9 fL (9.5-13.5); Monocytes Absolute Auto 0.9 10^3/uL (0.3-0.8); Monocytes Percent Auto 8.3 % (1.7-12.0); Neutrophils Absolute Auto 7.8 10^3/uL (1.4-6.5); Neutrophils Percent Auto 70.2 % (43.0-75.0); Platelet Count 243 10^3/uL (150-450); Red Blood Count 4.55 10^6/uL (4.20-5.40); Red Cell Distribution Width 13.2 % (11.0-15.0); White Blood Count 11.1 10^3/uL (4.0-11.0)
[2024-03-08] MEDS: KETOROLAC TROMETHAMINE 30 MG/ML VIAL 15 MG IVP (17:41)
[2024-03-08] MEDS: HYDRALAZINE HCL 20 MG/ML VIAL 10 MG IVP (17:41)
[2024-03-08 17:54] LABS: Alanine Aminotransferase 18 U/L (14-59); Albumin Globulin Ratio 0.9; Albumin Level 3.5 g/dL (3.4-5.0); Alkaline Phosphatase 79 U/L (46-116); Anion Gap 13.7; Aspartate Amino Transferase 28 U/L (15-37); BUN Creatinine Ratio 24.4; Bilirubin Total 0.4 mg/dL (0.2-1.0); Calcium 9.6 mg/dL (8.5-10.1); Carbon Dioxide 26.8 mmol/L (21.0-32.0); Chloride 103 mmol/L (98-107); Estimated GFR (African America 49 (>=60); Estimated GFR (Non-African Ame 40 (>=60); Glucose 125 mg/dL (74-106); INR 0.96; Partial Thromboplastin Time 31.5 sec (22.3-36.2); Potassium 4.5 mmol/L (3.5-5.1); Prothrombin Time 10.2 sec (9.0-11.6); Sodium 139 mmol/L (136-145); Total Protein 7.5 g/dL (6.4-8.2)
[2024-03-08] MEDS: OXYCODONE HCL/ACETAMINOPHEN 5MG/325MG 1 TAB PO (19:14)
--- OUTSIDE RECORDS SUMMARY | 2024-03-08 19:35 | XMS_ITS ---
Patient Summarization (C-CDA 2.1 CCD) Created on: March 08, 2024 DWIGHTCARLEY LORENZO : 1940 Sex: Female Author Organization Sample organization Care Team Providers Care Sorting Cows Worker Name Role Phone PHYSICIAN, DEFAULT Unavailable Unavailable [...] Attending Provider JUAN CARLOS Jenkins Other Provider Unavailabl e Gilbert, MOLECULAR GENETICIST Kalina Other Provider Unavailable MD Jhonatan Oakes Other Provider DEEPA Robins Other Provider [phone] MD Shelby Unger Other Provider MD Sergio Escudero Other Provider [phone] MD Abdulaziz Alvarez Attending Provider MD Abdulaziz Alvarez Attending Provider Sergio Escudero Unavailable Unavailable Unavailable Alvarez, Abdulaziz Attending Unavailable Maharaj [...] UnavailSergio Estrada Attending UnavailKali Alvares MD Unavailable Kali Maharaj MD Primary Care Provider Neville CERTIFIED HYPERBARIC TECHNICIAN, Sarah Unavailable Unavailable Neville CERTIFIED HYPERBARIC TECHNICIAN, Sarah Unavailable [phone] YULIA MCCRAY Attending Unavailable KALI MAHARAJ Attending Unavailable ISMAEL AQUINO Attending Unavailable YULIA MCCRAY Attending Unavailable KALI MAHARAJ Attending Unavailable Allergies Allergy Classification Reported Allergen(s) Allergy Type Date of Onset Reaction(s) Facility (1 source) Chocolate Drug allergy (disorder) 02-21-2012 [facility] Repository (1 source) Chocolate Drug allergy (disorder) 02-01-2021 [facility] Repository (1 source) Chocolate Drug allergy (disorder) 05-28-2021 [facility] Repository Encounters Encounter Date Encounter Type Care Provider Facility Start: 01-29-2024 End: 01-29-2024 ambulatory KALI MAHARAJ Not Available Start: 01-21-2024 End: 01-21-2024 ambulatory YULIA D BEJ Not Available Start: 11-14-2023 End: 11-14-2023 ambulatory ISMAEL AQUINO Not Available Start: 11-14-2023 End: 11-14-2023 Patient encounter procedure Ismael Aquino DPM Work Phone: [facility] Comment on above: PVD (peripheral vasc ular disease) ([facility]) (Primary Dx); Onychomycosis; Toe pain, left; Toe [...] Start: 09-26-2023 End: 09-26-2023 ambulatory Raysa Robins Facility:[facility] Start: 09-26-2023 End: 09-26-2023 ambulatory II Kali Maharaj Work Phone: [employer] Other Start: 09-26-2023 End: 09-26-2023 Patient encounter procedure II Kali Maharaj Work Phone: [facility]-Ultrasound [facility] Start: 03-20-2023 End: 03-20-2023 Patient encounter procedure Raysa Robins [facility] Vascular Surgery Start: 03-20-2023 End: 03-20-2023 ambulatory II Kali Maharaj Work Phone: [facility] [employer] Other Start: 03-13-2023 ambulatory Abdulaziz Alvarez Facility : Start: 11-10-2022 Chart Update Abdulaziz Alvarez MD Work Phone: [facility] 250 DO Work Phone: Start: 10-30-2022 Telephone encounter Abdulaziz day MD Work Phone: [facility] 600 DO Work Phone: Start: 10-22-2022 Patient encounter procedure Abdulaziz Alvarez MD Work Phone: [facility] 250 DO Work Phone: Start: 09-21-2022 ambulatory Abdulaziz Alvarez Facility : Start: 09-21-2022 Office outpatient vi sit 25 minutes Abdulaziz Alvarez MD Work Phone: [facility] 250 DO Work Phone: Start: 09-18-2022 Chart Update Abdulaziz Alvarez MD Work Phone: [facility] 250 DO Work Phone: Start: 09-14-[address] Kali Maharaj II Facility:[id number] Start: 09-12-2022 End: 09-12-2022 ambulatory Sergio Escudero Other [facility] [employer] Other Start: 09-12-2022 Office outpatient vi sit 15 minutes Sergio Escudero [facility] Vascular Surgery Start: 08-14-2022 ambulatory Abdulaziz Alvarez Facility :[id number] Start: 08-14-2022 Patient encounter procedure DO Edward Bernstein Work Phone: [facility]Electro[facility] Start: 08-13-2022 End: 08-13-2022 ambulatory DO Edward Bernstein Work Phone: [facility] Work Phone: Start: 08-13-2022 End: 08-13-2022 Patient encounter procedure DO Edwadr Bernstein Work Phone: [facility] Start: 08-12-2022 ambulatory Cintron Alvarez Facility :[id number] Start: 08-11-2022 ambulatory Cintron Alvarez Facility :[id number] Start: 08-10-2022 ambulatory Cintron Alvarez Facility :[id number] Start: 08-10-2022 End: 08-14-2022 Evaluation and management of inpatient DO Edward Bernstein Work Phone: [facility] Start: 12-26-2021 End: 12-26-2021 ambulatory Jhonatan Oakes Other [facility] [employer] Other Start: 12-26-2021 Telephone encounter Jhonatan Oakes [facility] Vascular Surgery Start: 2021 End: 08-24-2021 ambulatory YULIA MCCRAY Facility:H1 Start: 07-10-2021 End: 07-11-[address] KALI MAHARAJ Facility:[facility]1 Start: 07-03-[address] KALI MAHARAJ Facilit y:H1 Start: 02-08-2021 End: 03-08-[address] KALI MAHARAJ Facility:H1 Start: 02-01-2021 End: 02-02-2021 ambulatory LULU FRIEDMAN Facility:H1 Start: 01-31-2021 End: 02-01-2021 ambulatory UNKNOWN PROVIDER Facility:[facility] Start: 12-05-[address] MAX Whyte ility:H1 Start: 09-04-2018 End: 09-05-2018 Patient encounter procedure DEFAULT PHYSICIAN Facility:[facility] Goals Date Patient Goal Desired Activity /State Immunizations Immunization Date Immunization Notes Care Provider Fa cility 08-12-2023 Influenza, High-dose Seasonal, Quadrivalent, Preservative Free Ismael Aquino DPM Work Phone: [facility] 09-21-2022 Moderna SARS-CoV-2 Booster Vaccination Ismael Aquino DPM Work Phone: [facility] 07-27-2022 Fluzone High-Dose Quadrivalent 0.7 ML Intramuscular Suspension Prefilled Syringe Abdulaziz Alvarez MD Work Phone: [facility] 05-08-2022 Moderna COVID-19 Vac cine 100 MCG/0.5ML Intramuscular Suspension Abdulaziz Alvarez MD Work Phone: [facility] 250 DO Work Phone: 08-07-2021 influenza, high dose seasonal, preservative-free Abdulaziz Alvarez MD Work Phone: [facility] 250 DO Work Phone: 08-04-2021 Moderna COVID-19 Vac cine 100 MCG/0.5ML Intramuscular Suspension Abdulaziz Alvarez MD Work Phone: [facility] 250 DO Work Phone: 11-23-2020 Moderna COVID-19 Vac cine 100 MCG/0.5ML Intramuscular Suspension Abdulaziz Alvarez MD Work Phone: [facility] 250 DO Work Phone: 10-21-2020 Moderna COVID-19 Vac cine 100 MCG/0.5ML Intramuscular Suspension Abdulaziz Alvarez MD Work Phone: [facility] 250 DO Work Phone: 07-05-2020 zoster vaccine recombinant Abdulaziz Alvarez MD Work Phone: [facility] 07-01-2020 influenza, high dose seasonal, preservative-free Abdulaziz Alvarez MD Work Phone: [facility] 250 DO Work Phone: 07-01-2020 Influenza, High-dose Seasonal, Quadrivalent, Preservative Free Ismael Aquino DPM Work Phone: [facility] 06-22-2019 Seasonal trivalent influenza vaccine, adjuvanted, preservative free Abdulaziz Alvarez MD Work Phone: [facility] 07-21-2018 influenza, high dose seasonal, preservative-free Abdulaziz Alvarez MD Work Phone: [facility] 250 DO Work Phone: 06-06-2018 influenza, high dose seasonal, preservative-free Abdulaziz Alvarez MD Work Phone: [facility] 06-18-2017 influenza, high dose seasonal, preservative-free Abdulaziz Alvarez MD Work Phone: [facility] 06-18-2017 pneumococcal polysaccharide vaccine, 23 valent Abdulaziz Alvarez MD Work Phone: [facility] 07-13-2016 influenza, high dose seasonal, preservative-free Abdulaziz Alvarez MD Work Phone: [facility] 07-23-2015 pneumococcal conjuga te vaccine, 13 valent Abdulaziz Alvarez MD Work Phone: [facility] 07-07-2015 influenza, injectabl e, quadrivalent, preservative free Ismael Aquino DPM Work Phone: [facility] 07-03-2013 influenza, seasonal, injectable, preservative free Ismael Aquino DPM Work Phone: [facility] 10-07-2010 pneumococcal polysaccharide vaccine, 23 valent Ismael Aquino DPM Work Phone: [facility] 07-20-2010 seasonal influenza, intradermal, preservative free Ismael Aquino DPM Work Phone: [facility] Medications Current Medications Medication Drug Class(es) Dates [...] mg oral tablet (17 sources) l-Thyroxine Start: 1 take 75 ug by mouth once daily [...] Cephalexin Discontinued 500 MG PO Twice daily 6 3 May 29, 2021 11:00pm August 14, 2022 1:29pm [...] Once a day Active Simvastatin Acti ve Payers Date Payer Category Payer Medicaid [id number] 2017 Medicare HU[employer]NA MEDICARE ADVANTAGE HU[employer]NA MEDICARE [id number] 2017-Present [address] [address] [place] [address] [id number] 1959 Private Health Insurance [id number] 1959 Self-pay 1940 Unknown [id number] 2.16.840.1.831750.3.579.2. 647 1940 Unknown [id number] 2.16.840.1.428977.3.579.2. 732 1940 Unknown [id number] 2.16.840.1.930365.3.579.2. 593 1940 Unknown [id number] 2.16.840.1.015295.3.579.2. 593 1940 Unknown [id number] 2.16.840.1.818507.3.579.2. 593 1940 Unknown [id number] 2.16.840.1.931936.3.579.2. 593 1940 Unknown [id number] 2.16.840.1.239909.3.579.2. 593 1940 Unknown [id number] 2.16.840.1.852861.3.579.2. 593 1940 Unknown [id number] 2.16.840.1.665187.3.579.2. 593 1940 Unknown [id number] 2.16.840.1.842226.3.579.2. 356 1940 Unknown [id number] 2.16.840.1.402887.3.579.2. 356 1940 Unknown [id number] 2.16.840.1.070029.3.579.2. 356 1940 Unknown [id number] 2.16.840.1.762333.3.579.2. 356 1940 Unknown [id number] 2.16.840.1.952625.3.579.2. 356 1940 Unknown [id number] 2.16.840.1.829713.3.579.2. 356 1940 Unknown [id number] 2.16.840.1.455696.3.579.2. 356 1940 Unknown [id number] 2.16.840.1.660937.3.579.2. 356 1940 Unknown [id number] 2.16.840.1.474897.3.579.2. 1259 1940 Unknown [id number] 2.16.840.1.815224.3.579.2. 1259 1940 Unknown [id number] 2.16.840.1.850355.3.579.2. 1259 1940 Unknown [id number] 2.16.840.1.738905.3.579.2. 1259 1940 Unknown [id number] 2.16.840.1.013163.3.579.2. 1259 Medicare Medicare [id number] Unknown Unknown Insurance No Card [id number] Unknown [id number] 2.16.840.1.282860.3.579.2. 531 Unknown [id number] 2.16840.1.234501.3.579.2. 531 Plan of Treatment Date Care Activity Detail Author Start: 02-17-2024 End: 02-17-2024 Patient encounter procedure 02/17/2024 1:15 PM EDT Office Visit [facility] [address] [facility] [address] [place] [phone] Kali Maharaj MD [address] [facility] [address] [place] [address] [facility] Start: 01-23-2024 End: 01-23-2024 Patient encounter procedure 01/23/2024 4:10 PM EDT Procedure Visit [facility] [address] [facility] [address] [place] [address] Ismael Aquino DPM [address] [address] [facility] Start: 12-10-2023 End: 12-10-2023 Patient encounter procedure 12/10/2023 2:00 PM EST Office Visit [facility] [address] [facility] [address] [place] [phone] Yulia Mccray MD [address] [facility] 111 [place], [place] [id number] [facility] Start: 11-21-2023 Medicare Annual Wellness (AWV) Medicare Annual Wellness (AWV) [facility] Start: 11-14-2023 End: 11-14-2023 Patient encounter procedure 11/14/2023 4:50 PM EST Procedure Visit [facility] 112 [facility] [address] [place] [address] Ismael Aquino DPM [address] [address] [facility] Start: 11-11-2023 End: 11-11-2023 Patient encounter procedure 11/11/2023 1:50 PM EST Procedure Visit [facility] [address] [place] [phone] Ismael Aquino DPM [address] [address] [facility] Start: 03-20-2023 Doppler ultrasonography of bilateral carotid arteries US carotid doppler BI [facility] Start: 03-20-2023 US.doppler Carotid arteries - [facility] Start: 03-13-2023 FUV, Provider: Abdulaziz Alvarez, Status: Emile, Time: 11:50 AM FUV, Provider: Abdulaziz Alvarez, Status: Pen, Time: 11:50 AM [facility] 250 DO Work Phone: Start: 09-21-2022 FUV, Provider: Abdulaziz Alvarez, Status: Pen, Time: 11:50 AM FUV, Provider: Abdulaziz Alvarez, Status: Pen, Time: 11:50 AM [facility] 250 DO Work Phone: Start: 08-14-2022 [facility] Start: 08-13-2022 [facility] Start: 08-12-2022 Referral to vascular surgeon [facility] Start: 08-10-2022 Hospital admission [facility] Start: 08-10-2022 [facility] Patient Education Carotid Artery Disease Carotid Artery Disease (DC) [facility] Work Phone: Patient referral [facility] Work Phone: Problems Active Problems Problem Classification Problem Date [...] Resolved: 09-21-2022 Episodic Other aftercare (1 source) [facility] (current) use of aspirin; Translations: [FINANCIAL ANALYSIS MANAGER CURRENT USE OF ASPIRIN] Onset: 02-09-2021 Episodic Other aftercare (1 source) Other [facility] (current) drug therapy; Translations: [OTH FINANCIAL ANALYSIS MANAGER CURRENT DRUG THERAPY] Onset: 02-09-2021 Episodic Other [...] spasm of back] Onset: 02-25-2018 04-08-2023 Episodic Procedures Date Procedure Procedure Detail Performing Clinician [...] Total colonoscopy Abdulaziz day MD Work Phone: Results Test Name Value Interpretation Reference Range Facility US carotid doppler BIon 12- US carotid doppler BI [facility] [place] [address] [place], [place] [id number] Ultrasound Report Signed Patient: Carley Quintanilla MR#: [id number] : 1940 Acct:[id number] Age/Sex: 83 / F ADM Date: 09/26/23 Loc: [facility] Room: Type: [facility] Attending Dr: Raysa Robins DIRECTOR UTILIZATION MANAGEMENT-C Ordering Provider: Raysa Robins APRN Date of [...] Sergio Escudero MD09/26/2023 1:51 PM Dictation Location: [place] [address] Tech: Olimpia Corea Transcribed By: ADEEL 09/26/23 1351 Dictated By: Sergio Escudero MD 09/26/23 1350 Signed By: 09/26/23 1351 Normal [facility] US carotid doppler BIon 06- US carotid doppler BI [facility] [place] [address] Ultrasound Report Signed Patient: Carley Quintanilla MR#: [id number] : 1940 Acct:[id number] Age/Sex: 82 / F ADM Date: 03/20/23 Loc: [facility] Room: Type: [facility] Attending Dr: Sergio Escudero MD Ordering Provider: [...] Jhonatan Oakes M.D.03/22/2023 1:18 PM Dictation Location: [place] [address] Tech: Marcelle Minor Transcribed By: ADEEL 03/22/231317 Dictated By: Jhonatan Oakes MD 03/22/231316 Signed By: 03/22/231317 [facility] Office Visit (Cardiology)on 09-21-2022 Follow-up visit [...] quit smoking.; Status:Complete - Retrospective Authorization; Done: [id number] You need to stop smoking. Though it is not easy, more than half of all adult smokers have quit. We encourage you to write down all the reasons you should quit smoking and set a quit date for yourself. Ask us how we can help. You may also call 8-779-[place]XNew [place] Free ClassifiedsNOW for free resources and assistance.; Status:Complete - Retrospective Authorization; Done: [id number] Tobacco Use Screening; Status:Complete; Done: [id number] Patient Instructions Please bring all medicines, vitamins, [...] negative for complaint. Vitals Vital Signs Recorded: [id number] 12:15PM Heart Rate84, R Radial Klotszgm986, RUE Qouhmudta80, RUE Height5 ft 6 in Fyvkkl101 lb BMI Utoeeuwbax95.05 kg/m2 BSA Calculated1.76 Tobacco Usea) Yes Patient encouraged to stop using tobacco productsYes PHQ-2 Patient Declined/Screening not indicatedYes (more content not included)... Normal [facility] Tobacco Screening.on 022 Fall risk assessment a) No falls within the last year [facility] 250 DO Work Phone: Tobacco use status [facility] a) Yes [facility] 250 DO Work Phone: Tobacco Screening. Yes [facility] ShangPinu george 250 DO Work Phone: No Panel Informationon 09-14 [facility] 250 DO Work Phone: Creatinine and Glomerular fi ltration rate.predicted panel (S/P/Bld)Ordered By: Dee Kenney on 08-12-2022 Creatinine [Mass/Vol] 1.16 mg/dL 0.44-1.03 [facility] Estimated glomerular filtrat ion rate (GFR) non- AmericanOrdered By: Dee Kenney on 08-12-2022 GFR/1.73 sq M.predicted among non-blacks MDRD (S/P/Bld) [Vol rate/Area] 45 mL/Min [facility] No Panel InformationOrdered By: Dee Kenney on 08-12-2022 Estimated GFR () 54 mL/Min [facility] Comment on above: GFR estimated refere nce range: According to KDOQI guidelines, <60 ml/min/1.73m2 is sufficient to diagnose a patient with chronic kidney disease. Pharmacy Creatinine Clearance (Chem 35.61 [facility] Serum or plasma anion gap de terminationOrdered By: Dee Kenney on 08-12-2022 Anion gap [Moles/Vol] 11.3 mmol/L 6.0-15.[address] [facility] Serum or plasma calcium azalea urement (mass/volume)Ordered By: Dee Kenney on 08-12-2022 Calcium [Mass/Vol] 8.6 mg/dL 8.2-10.2 [facility] Serum or plasma chloride janet surement (moles/volume)Ordered By: Dee Kenney on 08-12-2022 Chloride [Moles/Vol] 110 mmol/L 95-114 [facility] Serum or plasma glucose azalea urement (mass/volume)Ordered By: Dee Kenney on 08-12-2022 Glucose [Mass/Vol] 95 mg/dL 70-100 [facility] Comment on above: ADA recommended refe rence rangeRandom Glucose Reference Range is dependent on time and content of last meal. Glucose of more than 200 mg/dL in a nonstressed, ambulatory subject supports the diagnosis of Diabetes Mellitus. Serum or plasma potassium me asurement (moles/volume)Ordered By: Dee Kenney on 08-12-2022 Potassium [Moles/Vol] 3.7 mmol/L 3.5-5.1 [facility] Serum or plasma sodium measu rement (moles/volume)Ordered By: Dee Kenney on 08-12-2022 Sodium [Moles/Vol] 141 mmol/L 136-146 [facility] Serum or plasma total carbon dioxide measurement (moles/volume)Ordered By: Dee Kenney on 08-12-2022 CO2 [Moles/Vol] 23.4 mmol/L 22.0-30.0 [facility] Serum or plasma urea nitroge n measurement (mass/volume)Ordered By: Dee Kenney on 08-12-2022 Urea nitrogen [Mass/Vol] 28 mg/dL 9-23 [facility] TSH DL <= 0.005 mIU/L QnOrde red By: Dee Kenney on 08-11-2022 TSH Qn 2.20 m[IU]/L 0.45-5.33 [facility] Basophils Auto (Bld) [#/Vol] Ordered By: Edward Bernstein on 08-10-2022 Basophils (Bld) [#/Vol] 0.1 10*3/uL 0.0-0.2 [facility] Basophils/100 WBC Auto (Bld) Ordered By: Edward Bernstein on 08-10-2022 Basophils/100 WBC (Bld) 0.5 % . [facility] Bilirubin Test strip Ql (U)O rdered By: Edward Bernstein on 08-10-2022 Bilirubin Ql (U) Negative Negative [facility] Body fluid albumin measureme nt (mass/volume)Ordered By: Edward Bernstein on 08-10-2022 Albumin (Body fld) [Mass/Vol] 3.3 g/dL 3.2-5.5 [facility] COVID CepheidOrdered By: Rima Bernstein on 08-10-2022 SARS-CoV-2 (COVID-19) Ab IA Ql Negative Negative [facility] Comment on above: This is a duplicate The [employer] Xpert Xpress CoV-2/Flu/RSV Plus RNA by RT-PCR result to be used for statistical tracking purpose only. SARS-CoV-2 (COVID-19) RNA ALLISON+probe Ql (Unsp spec) [facility] Color Auto (U)Ordered By: Harjit Bernstein on 08-10-2022 Color (U) Yellow Yellow [facility] Eosinophils Auto (Bld) [#/Vo l]Ordered By: Edward Bernstein on 08-10-2022 Eosinophils (Bld) [#/Vol] 0.1 10*3/uL 0.0-0.45 [facility] Eosinophils/100 WBC Auto (Bl d)Ordered By: Edward Bernstein on 08-10-2022 Eosinophils/100 WBC (Bld) 0.7 % . [facility] Erythrocyte distribution wid th Auto (RBC) [Ratio]Ordered By: Edward Bernstein on 08-10-2022 Erythrocyte distribution width (RBC) [Ratio] 13.4 % 11.9-15.3 [facility] Globulin Calc (S) [Mass/Vol] Ordered By: Edward Bernstein on 08-10-2022 Globulin (S) [Mass/Vol] 2.7 g/dL [facility] Glucose Glucometer (BldC) [M ass/Vol]Ordered By: Edward Bernstein on 08-10-2022 Glucose [Mass/Vol] 101 mg/dL [facility] Comment on above: Random Glucose Refer ence Range is dependent on time and content of last meal. Glucose of more than 200 mg/dL in a nonstressed, ambulatory subject supports the diagnosis of Diabetes Mellitus. Hematocrit Auto (Bld) [Volum e fraction]Ordered By: Edward Bernstein on 08-10-2022 Hematocrit (Bld) [Volume fraction] 40.9 % 34.0-46.4 [facility] Hemoglobin [Mass/volume] in BloodOrdered By: Edward Bernstein on 08-10-2022 Hemoglobin (Bld) [Mass/Vol] 13.3 g/dL 11.8-15.4 [facility] Ketones Auto test strip (U) [Mass/Vol]Ordered By: Edward Bernstein on 08-10-2022 Ketones (U) [Mass/Vol] Trace Negative [facility] Laboratory - Chemistry and C hemistry - challengeOrdered By: Edward Bernstein on 08-10-2022 Magnesium [Mass/Vol] 2.2 mg/dL 1.6-2.6 [facility] Natriuretic peptide B (Bld) [Mass/Vol] 29.0 pg/mL 5-100 [facility] Laboratory - CoagulationOrde red By: Edward Bernstein on 08-10-2022 PT Coag (PPP) [Time] 11.0 s 9.0-12.9 [facility] Laboratory - Hematology and Cell countsOrdered By: Edward Bernstein on 08-10-2022 Nucleated RBC/100 WBC (Bld) [Ratio] 0.0 % 0-0.5 [facility] Leukocytes [#/volume] in Blo od by Automated countOrdered By: Edward Bernstein on 08-10-2022 WBC (Bld) [#/Vol] 9.9 10*3/uL 4.5-11.0 [facility] Lymphocytes Auto (Bld) [#/Vo l]Ordered By: Edward Bernstein on 08-10-2022 Lymphocytes (Bld) [#/Vol] 0.9 10*3/uL 1.00-4.8 [facility] Lymphocytes/100 WBC Auto (Bl d)Ordered By: Edward Bernstein on 08-10-2022 Lymphocytes/100 WBC (Bld) 9.5 % . [facility] MCH Auto (RBC) [Entitic mass ]Ordered By: Edward Bernstein on 08-10-2022 MCH (RBC) [Entitic mass] 30.6 pg 24.7-34.3 [facility] MCHC Auto (RBC) [Mass/Vol]Or dered By: Edward Bernstein on 08-10-2022 MCHC (RBC) [Mass/Vol] 32.6 g/dL 32.0-35.0 [facility] MCV Auto (RBC) [Entitic vol] Ordered By: Edward Bernstein on 08-10-2022 MCV (RBC) [Entitic vol] 94.0 fL 80-100 [facility] Monocytes Auto (Bld) [#/Vol] Ordered By: Edward Bernstein on 08-10-2022 Monocytes (Bld) [#/Vol] 0.6 10*3/uL 0.0-0.8 [facility] Monocytes/100 WBC Auto (Bld) Ordered By: Edward Bernstein on 08-10-2022 Monocytes/100 WBC (Bld) 5.7 % . [facility] Neutrophils Auto (Bld) [#/Vo l]Ordered By: Edward Bernstein on 08-10-2022 Neutrophils (Bld) [#/Vol] 8.3 10*3/uL 1.8-7.7 [facility] Neutrophils/100 WBC Auto (Bl d)Ordered By: Edward Bernstein on 08-10-2022 Neutrophils/100 WBC (Bld) 83.6 % . [facility] Nitrite Test strip Ql (U)Ord ered By: Edward Bernstein on 08-10-2022 Nitrite Ql (U) Negative Negative [facility] Platelet mean volume Auto (B ld) [Entitic vol]Ordered By: Edward Bernstein on 08-10-2022 Platelet mean volume (Bld) [Entitic vol] 10.2 fL 6.3-10.7 [facility] Platelet poor plasma interna tional normalized ratio (INR) by coagulation assay (relatOrdered By: Edward Bernstein on 08-10-2022 INR Coag (PPP) [Relative time] 1.0 {INR} [facility] Comment on above: INR Therapeutic [...] 08-10-2022 Platelets (Bld) [#/Vol] 193 10*3/uL 150-450 [facility] Protein Auto test strip (U) [Mass/Vol]Ordered By: Edward Bernstein on 08-10-2022 Protein (U) [Mass/Vol] Negative Negative Fi [facility] Protein [Mass/volume] in Ser um or PlasmaOrdered By: Edward Bernstein on 08-10-2022 Protein [Mass/Vol] 6.0 g/dL 6.1-7.9 [facility] RBC Auto (Bld) [#/Vol]Ordere d By: Edward Bernstein on 08-10-2022 RBC (Bld) [#/Vol] 4.36 10*6/uL 3.60-5.00 [facility] Serum or plasma alanine jensen otransferase measurement without P-5'-P (enzymatic activiOrdered By: Edward Bernstein on 08-10-2022 ALT No additional P-5'-P [Catalytic activity/Vol] 12 U/L 10-60 [facility] Serum or plasma albumin/glob ulin mass ratioOrdered By: Edward Bernstein on 08-10-2022 Albumin/Globulin [Mass ratio] 1.2 {ratio} [facility] Serum or plasma alkaline sondra sphatase measurement (enzymatic activity/volume)Ordered By: Edward Bernstein on 08-10-2022 ALP [Catalytic activity/Vol] 52 U/L 32-92 [facility] Serum or plasma aspartate am inotransferase measurement (enzymatic activity/volume)Ordered By: Edward Bernstein on 08-10-2022 AST [Catalytic activity/Vol] 16 U/L 10-42 [facility] Serum or plasma total biliru bin measurement (mass/volume)Ordered By: Edward Bernstein on 08-10-2022 Bilirubin [Mass/Vol] 0.5 mg/dL 0.3-1.2 [facility] Specific gravity Auto test s trip (U) [Rel density]Ordered By: Edward Bernstein on 08-10-2022 Specific gravity (U) [Rel density] 1.014 1.001-1.03 0 [facility] Troponin I.cardiac [Mass/vol ume] in Serum or Plasma by High sensitivity methodOrdered By: Edward Bernstein on 08-10-2022 Troponin I.cardiac High sensitivity method [Mass/Vol] 9 pg/mL 0-15 [facility] Urine clarity by refractomet ry automatedOrdered By: Edward Bernstein on 08-10-2022 Clarity Refractometry automated (U) Clear Clear [facility] Urine glucose measurement by automated test strip (mass/volume)Ordered By: Edward Bernstein on 08-10-2022 Glucose Auto test strip (U) [Mass/Vol] Normal mg/dL Normal [facility] Urine hemoglobin detection b y automated test stripOrdered By: Edward Bernstein on 08-10-2022 Hemoglobin Auto test strip Ql (U) Negative Negative [facility] Urine leukocyte esterase det ection by automated test stripOrdered By: Edward Bernstein on 08-10-2022 Leukocyte esterase Auto test strip Ql (U) Negative Negative [facility] Urobilinogen Auto test strip (U) [Mass/Vol]Ordered By: Edward Bernstein on 08-10-2022 Urobilinogen (U) [Mass/Vol] Normal mg/dL Normal [facility] pH Auto test strip (U)Ordere d By: Edward Bernstein on 08-10-2022 pH (U) 5.5 [pH] 5.0-9.0 [facility] MRI Brain w/oon 09-20-2021 MRI Brain w/o CLINICAL HISTORY: COMPARISON: TECHNIQUE: Multiplanar [facility] MRI of the brain was performed contrast. [...] by MATTHEW TRIPLETT on 09/21/2021 1240 Normal [facility] [employer] Entry Operator LYME DISEASE, WESTERN BLOTon 08-26-2021 IgG P18 Ab. Absent Normal [facility] Comment on above: Performed By: #### L YMWB #### [facility] [address] [address] [address] Christian Lebron IgG P23 Ab. Absent Normal [facility] Comment on above: Performed By: #### L YMWB #### [facility] [address] [place] [address] Dr. Christian Lebron IgG P28 Ab. Absent [facility] Comment on above: Performed By: #### L YMWB #### [facility] [address] [place] [address] Dr. Christian Lebron IgG P30 Ab. Absent [facility] Comment on above: Performed By: #### L YMWB #### [facility] [address] [place] [address] Dr. Christian Lebron IgG P39 Ab. Absent [facility] Comment on above: Performed By: #### L YMWB #### [facility] [address] [place] [address] Dr. Christian Lebron IgG P41 Ab. Absent [facility] Comment on above: Performed By: #### L YMWB #### [facility] [address] [place] [address] Dr. Christian Lebron IgG P45 Ab. Absent [facility] Comment on above: Performed By: #### L YMWB #### [facility] [address] [place] [address] Dr. Christian Lebron IgG P58 Ab. Absent [facility] Comment on above: Performed By: #### L YMWB #### [facility] [address] [place] [address] Dr. Christian Lebron IgG P66 Ab. Absent [facility] Comment on above: Performed By: #### L YMWB #### [facility] [address] [place] [address] Dr. Christian Lebron IgG P93 Ab. Absent [facility] Comment on above: Performed By: #### L YMWB #### [facility] [address] [place] [address] Dr. Christian Lebron IgM P23 Ab. Absent [facility] Comment on above: Performed By: #### L YMWB #### [facility] [address] [place] [address] Dr. Christian Lebron IgM P39 Ab. Absent Normal [facility] Comment on above: Performed By: #### L YMWB #### [facility] [address] [place] [address] Dr. Christian Lebron IgM P41 Ab. Absent [facility] Comment on above: Performed By: #### L YMWB #### [facility] [address] [place] [address] Dr. Christian Lebron Lyme IgG WB Interp. Negative [facility] Comment on above: Result Comment: Posi tive: 5 of the following Borrelia-specific bands: 18,23,28,30,39,41,45,58, 66, and 93. Negative: No bands or banding patterns which do not meet positive criteria. Performed By: #### L YMWB #### [facility] [address] [place] [address] Dr. Christian Lebron Lyme IgM WB Interp. Negative [facility] Comment on above: Result Comment: Note [...] are those recommended by CDC/ASTPHLD. p23=Osp C, p88=rudtjreik . Note: Sera from individuals with the following may cross react in the Lyme Line Blot assays: other spirochetal diseases (periodontal disease, leptospirosis, relapsing fever, yaws, and pinta); connective autoimmune (Rheumatoid Arthritis and Systemic Lupus Erythematosus and also individuals with Antinuclear Antibody); other infections ([place] Spotted Fever; Roel-Briones Virus, and Cytomegalovirus). . Performed By: #### L YMWB #### [facility] [address] [address] [address] Christian Lebron METHYLMALONIC ACID (MMA)on 10-26-2020 Disclaimer: Comment Normal [facility] Comment on above: Result Comment: This test was developed and its performance characteristics determined by [facility]. It has not been cleared or approved by the Food and Drug Administration. Performed By: #### M MA2 #### [facility] [address] [address] [address] Christian Lebron Methylmalonic Acid, Serum 255 nmol/L Normal 0-378 [facility] Comment on above: Performed By: #### M MA2 #### [facility] [address] [place] [address] Dr. Christian Lebron HOMOCYSTEINEon 08-25-2021 Homocyst(e)ine, Plasma 29.7 umol/L Critically high 0.0-21. 3 [facility] Comment on above: Result Comment: Spec imen quantity insufficient for verification by repeat analysis. Performed By: #### H OMCY #### [facility] [address] [address] [address] Christian Lebron RPR QUANTon 08-24-2021 Rapid Plasma Reagin, Quant Non-Reactive Normal NonRea<1:1 [facility] Comment on above: Performed By: #### R PRQ #### [facility] [address] [place] [address] Dr. Christian Lebron AMMONIAon 2021 Ammonia (P) [Moles/Vol] 9 umol/L Critically low 10-30 [facility] Comment on above: Performed By: #### M MA2 #### [facility] [address] [place] [address] Dr. Christian Lebron CRPon 2021 CRP [Mass/Vol] mg/L Normal <=1.0 [facility] Comment on above: Performed By: #### M MA2 #### [facility] [address] [address] [address] Christian Lebron FOLATEon 2021 FOLATE 4.50 ng/mL Normal >=2.76 [facility] Comment on above: Performed By: #### F T4, VITB12, FOL #### [facility] [address] [place] [address] Dr. Christian Lebron FREE T4on 2021 Free T4 [Mass/Vol] 0.98 ng/dL Normal 0.78-2.19 [facility] Comment on above: Performed By: #### F T4, VITB12, FOL #### [facility] [address] [place] [address] Dr. Christian Lebron LIVER PROFILEon 2021 Albumin [Mass/Vol] 3.6 g/dL Normal 3.5-5.0 [facility] Comment on above: Performed By: #### M MA2 #### [facility] [address] [place] [address] Dr. Christian Lebron Albumin/Globulin [Mass ratio] 1.0 {ratio} Normal [facility] Comment on above: Performed By: #### Khadar MA2 #### [facility] [address] [place] [address] Dr. Christian Lebron ALP [Catalytic activity/Vol] 96 U/L Normal 38-126 [facility] Comment on above: Performed By: #### Khadar MA2 #### [facility] [address] [place] [address] Dr. Christian Lebron ALT [Catalytic activity/Vol] 14 U/L Normal 9-52 [facility] Comment on above: Performed By: #### M MA2 #### [facility] [address] [place] [address] Dr. Christian Lebron AST [Catalytic activity/Vol] 17 U/L Normal 14-36 [facility] Comment on above: Performed By: #### M MA2 #### [facility] [address] [place] [address] Dr. Christian Lebron BILI, CONJUGATED 0.1 mg/dL Normal 0.0-0.3 [facility] Comment on above: Performed By: #### M MA2 #### [facility] [address] [place] [address] Dr. Christian Lebron Bilirubin [Mass/Vol] 0.3 mg/dL Normal 0.2-1.3 [facility] Comment on above: Performed By: #### M MA2 #### [facility] [address] [place] [address] Dr. Christian Lebron Globulin (S) [Mass/Vol] 3.7 g/dL Normal [facility] Comment on above: Performed By: #### M MA2 #### [facility] [address] [place] [address] Dr. Christian Lebron Protein [Mass/Vol] 7.3 g/dL Normal 6.1-8.2 [facility] Comment on above: Performed By: #### M MA2 #### [facility] [address] [place] [address] Dr. Christian Lebron [facility] 31 mm/hr Critically high <=30 [facility] Comment on above: Performed By: #### H OMCY #### [facility] [address] [place] [address] Dr. Christian Lebron TSHon 2021 TSH 3.087 uIU/mL Normal 0.470-4.68 0 [facility] Comment on above: Performed By: #### M MA2 #### [facility] [address] [place] [address] Dr. Christian Lebron TSH RANGE SEE BELOW Normal [facility] Comment on above: Result Comment: <0.3 4 UIU/ml HYPERTHYROID 0.34-5.60 UIU/ml EUTHYROID >5.60 UIU/ml HYPOTHYROID Performed By: #### M MA2 #### [facility] [address] [place] [address] Dr. Christian Lebron VITAMIN B12on 2021 Cobalamin (Vitamin B12) [Mass/Vol] 521.0 pg/mL Normal 239.0-931. 0 [facility] Comment on above: Performed By: #### F T4, VITB12, FOL #### [facility] [address] [place] [address] Dr. Christian Lebron XR DEXA BONE DENSITYon [...] OMAR SOTELO Date: 2021-07-10 14:50 Normal [facility] CBC AUTO DIFFon 02-02-2021 BASO # 0.1 103/ul Normal 0.0-0.1 [facility] Comment on above: Performed By: #### C BC #### [facility] [address] [place], [place] [id number] Lauri Pily Basophils/100 WBC (Bld) 0.4 % Normal 0.2-2.0 [facility] Comment on above: Performed By: #### C BC #### [facility] [address] [place], [place] [id number] Lauri Pily EO # 0.1 103/ul Normal 0.0-0.7 [facility] Comment on above: Performed By: #### C BC #### [facility] [address] [place], [place] [id number] Lauri Pily Eosinophils/100 WBC (Bld) 0.9 % Normal 0.9-7.0 [facility] Comment on above: Performed By: #### C BC #### [facility] [address] [place], [place] [id number] Lauri Pily Erythrocyte distribution width (RBC) [Ratio] 14.2 % Normal 11.0-15.0 [facility] Comment on above: Performed By: #### C BC #### [facility] [address] [place] [address] Laurilaura Nascimento Hematocrit (Bld) [Volume fraction] 40.8 % Normal 36.0-48.0 [facility] Comment on above: Performed By: #### C BC #### [facility] [address] [place] [address] Lauri Pily Hemoglobin (Bld) [Mass/Vol] 13.1 g/dL Normal 12.0-16.0 [facility] Comment on above: Performed By: #### C BC #### [facility] [address] [place] [address] Lauri Pily IG # 0.06 10e3/ul Critically high 0.00-0.03 [facility] Comment on above: Performed By: #### C BC #### [facility] [address] [place] [address] Lauri Pily IG % 0.5 % Normal 0.0-0.5 [facility] Comment on above: Performed By: #### C BC #### [facility] [address] [place] [address] Lauri Pily LYMPH # 2.4 103/ul Normal 1.2-3.8 [facility] Comment on above: Performed By: #### C BC #### [facility] [address] [place] [address] Lauri Nascimento Lymphocytes/100 WBC (Bld) 20.7 % Normal 20.5-60.0 [facility] Comment on above: Performed By: #### C BC #### [facility] [address] [place] [address] Laurilaura Nascimento MANUAL DIFF REQ NO Normal [facility] Comment on above: Performed By: #### C BC #### [facility] [address] [place], [place] [id number] Laurilaura Nascimento MCH (RBC) [Entitic mass] 28.5 pg Normal 26.7-34.0 [facility] Comment on above: Performed By: #### C BC #### [facility] [address] [id number] Lauri Nascimento MCHC (RBC) [Mass/Vol] 32.1 g/dL Normal 29.9-35.2 [facility] Comment on above: Performed By: #### C BC #### [facility] [address] [id number] Laurilaura Nascimento MCV (RBC) [Entitic vol] 88.9 fL Normal 81.0-99.0 [facility] Comment on above: Performed By: #### C BC #### [facility] [address] [id number] Lauri Pily MONO # 0.9 103/ul Critically high 0.3-0.8 [facility] Comment on above: Performed By: #### C BC #### [facility] [address] [place], [place] [id number] Lauri Pily Monocytes/100 WBC (Bld) 7.7 % Normal 1.7-12.0 [facility] Comment on above: Performed By: #### C BC #### [facility] [address] [place], [place] [id number] Lauri Pily NEUT # 8.1 103/ul Critically high 1.4-6.5 [facility] Comment on above: Performed By: #### C BC #### [facility] [address] [place], [place] [id number] Lauri Pily Neutrophils/100 WBC (Bld) 69.8 % Normal 43.0-75.0 [facility] Comment on above: Performed By: #### C BC #### [facility] [address] [place], [place] [id number] Laurilaura Nascimento Platelet mean volume (Bld) [Entitic vol] 11.9 fL Normal 9.5-13.5 [facility] Comment on above: Performed By: #### C BC #### [facility] [address] [place], [place] [id number] Lauri Pily PLT 197 103/ul Normal 150-450 [facility] Comment on above: Performed By: #### C BC #### [facility] [address] [place], [place] [id number] Lauri Pily RBC 4.59 106/ul Normal 4.20-5.40 [facility] Comment on above: Performed By: #### C BC #### [facility] [address] [place] [address] Lauri Nascimento WBC 11.6 103/ul Critically high 4.0-11.0 [facility] Comment on above: Performed By: #### C BC #### [facility] [address] [place] [address] Lauri Nascimento PROF CHEM 8 (BAS METB)on Anion gap [Moles/Vol] 12.7 mmol/L Normal [facility] Comment on above: Performed By: #### H OMCY #### [facility] [address] [place] [address] Dr. Christian Lebron Calcium [Mass/Vol] 9.1 mg/dL Normal 8.4-10.2 [facility] Comment on above: Performed By: #### H OMCY #### [facility] [address] [place] [address] Dr. Christian Lebron Chloride [Moles/Vol] 110 mmol/L Critically high 98-107 [facility] Comment on above: Performed By: #### H OMCY #### [facility] [address] [place] [address] Dr. Christian Lebron CO2 [Moles/Vol] 21.7 mmol/L Critically low 22.0-30.0 [facility] Comment on above: Performed By: #### H OMCY #### [facility] [address] [place] [address] Dr. Christian Lebron Creatinine [Mass/Vol] 1.25 mg/dL Critically high 0.52-1.04 [facility] Comment on above: Performed By: #### H OMCY #### [facility] [address] [place] [address] Dr. Christian Leborn EGFR-AF URUGUAYAN 50 mL/min/1.73m2 Critically low >=60 [facility] Comment on above: Performed By: #### H OMCY #### [facility] [address] [place] [address] Dr. Christian Lebron EGFR-NON AF URUGUAYAN 41 mL/min/1.73m2 Critically low >=60 [facility] Comment on above: Performed By: #### H OMCY #### [facility] [address] [address] [address] Christian Lebron Glucose [Mass/Vol] 117 mg/dL Critically high 74-106 [facility] Comment on above: Performed By: #### H OMCY #### [facility] [address] [address] [address] Christian Lebron Potassium [Moles/Vol] 3.4 mmol/L Normal 3.4-5.0 [facility] Comment on above: Performed By: #### H OMCY #### [facility] [address] [place] [address] Dr. Christian Lebron Sodium [Moles/Vol] 141 mmol/L Normal 137-145 [facility] Comment on above: Performed By: #### H OMCY #### [facility] [address] [place] [address] Dr. Christian Lebron Urea nitrogen [Mass/Vol] 28.0 mg/dL Critically high 7.0-17.0 [facility] Comment on above: Performed By: #### H OMCY #### [facility] [address] [place] [address] Dr. Christian Lebron Urea nitrogen/Creatinine [Mass ratio] 22.4 mg/mg Normal [facility] Comment on above: Performed By: #### H OMCY #### [facility] [address] [address] [address] Christian Lebron CBC AUTO DIFFon 02-01-2021 BASO # 0.1 103/ul Normal 0.0-0.1 [facility] Comment on above: Performed By: #### M MA2 #### [facility] [address] [place] [address] Dr. Christian Lebron Basophils/100 WBC (Bld) 0.5 % Normal 0.2-2.0 [facility] Comment on above: Performed By: #### M MA2 #### [facility] [address] [place] [address] Dr. Christian Lebron EO # 0.1 103/ul Normal 0.0-0.7 [facility] Comment on above: Performed By: #### M MA2 #### [facility] [address] [place] [address] Dr. Christian Lebron Eosinophils/100 WBC (Bld) 1.0 % Normal 0.9-7.0 [facility] Comment on above: Performed By: #### M MA2 #### [facility] [address] [place] [address] Dr. Christian Lebron Erythrocyte distribution width (RBC) [Ratio] 13.9 % Normal 11.0-15.0 [facility] Comment on above: Performed By: #### M MA2 #### [facility] [address] [place] [address] Dr. Christian Lebron Hematocrit (Bld) [Volume fraction] 38.7 % Normal 36.0-48.0 [facility] Comment on above: Performed By: #### Khadar MA2 #### [facility] [address] [place] [address] Dr. Christian Lebron Hemoglobin (Bld) [Mass/Vol] 12.3 g/dL Normal 12.0-16.0 [facility] Comment on above: Performed By: #### M MA2 #### [facility] [address] [place] [address] Dr. Christian Lebron IG # 0.04 10e3/ul Critically high 0.00-0.03 [facility] Comment on above: Performed By: #### M MA2 #### [facility] [address] [place] [address] Dr. Christian Lebron IG % 0.4 % Normal 0.0-0.5 [facility] Comment on above: Performed By: #### M MA2 #### [facility] [address] [place] [address] Dr. Christian Lebron LYMPH # 2.0 103/ul Normal 1.2-3.8 [facility] Comment on above: Performed By: #### M MA2 #### [facility] [address] [place] [address] Dr. Christian Lebron Lymphocytes/100 WBC (Bld) 22.0 % Normal 20.5-60.0 [facility] Comment on above: Performed By: #### Khadar HORNE2 #### [facility] [address] [place] [address] Dr. Christian Lebron MANUAL DIFF REQ NO Normal [facility] Comment on above: Performed By: #### M OZZIE2 #### [facility] [address] [place] [address] Dr. Christian Lebron MCH (RBC) [Entitic mass] 29.0 pg Normal 26.7-34.0 [facility] Comment on above: Performed By: #### Khadar HONRE2 #### [facility] [address] [place] [address] Dr. Christian Lebron MCHC (RBC) [Mass/Vol] 31.8 g/dL Normal 29.9-35.2 [facility] Comment on above: Performed By: #### Khadar HORNE2 #### [facility] [address] [place] [address] Dr. Christian Lebron MCV (RBC) [Entitic vol] 91.3 fL Normal 81.0-99.0 [facility] Comment on above: Performed By: #### Khadar HORNE2 #### [facility] [address] [place] [address] Dr. Christian Lebron MONO # 0.8 103/ul Normal 0.3-0.8 [facility] Comment on above: Performed By: #### Khadar HORNE2 #### [facility] [address] [place] [address] Dr. Christian Lebron Monocytes/100 WBC (Bld) 8.7 % Normal 1.7-12.0 [facility] Comment on above: Performed By: #### M OZZIE2 #### [facility] [address] [place] [address] Dr. Christian Lebron NEUT # 6.2 103/ul Normal 1.4-6.5 [facility] Comment on above: Performed By: #### Khadar HORNE2 #### [facility] [address] [address] [address] Christian Lebron Neutrophils/100 WBC (Bld) 67.4 % Normal 43.0-75.0 [facility] Comment on above: Performed By: #### M MA2 #### [facility] [address] [place] [address] Dr. Christian Lebron Platelet mean volume (Bld) [Entitic vol] 11.9 fL Normal 9.5-13.5 [facility] Comment on above: Performed By: #### M MA2 #### [facility] [address] [place] [address] Dr. Christian Lebron PLT 175 103/ul Normal 150-450 [facility] Comment on above: Performed By: #### M MA2 #### [facility] [address] [place] [address] Dr. Christian Lebron RBC 4.24 106/ul Normal 4.20-5.40 [facility] Comment on above: Performed By: #### M MA2 #### [facility] [address] [place] [address] Dr. Christian Lebron WBC 9.1 103/ul Normal 4.0-11.0 [facility] Comment on above: Performed By: #### M MA2 #### [facility] [address] [place] [address] HEAD WO CONon [...] by: YAQUELIN ANSARI Date: 2021-01-31 22:45 Normal [facility] ECHO LIMITED STUDYon 021 ECHO LIMITED STUDY Patient: CARLEY QUINTANILLA Exam Date: 02/01/2021 : 1940 Gender:F Ordering : DR. LULU FRIEDMAN . Admission #: [id number] Family : DR KALI MAHARAJ M.D. Order #: [id number] CLICK HERE TO VIEW EXAM ECHOCARDIOGRAM REPORT [...] Area(A4C): 15.60 cm2 Left Atrium Systolic Volume(A2C): 71748 mm3 Left Atrium Systolic Volume(A4C): 15625 mm3 Mitral Valve Right Ventricle Aorta AO Root Diam: 3.10 cm Aortic Valve Tricuspid Valve Pulmonic Valve Right Atrium Dictated by: Max Ruelas M.D. on 02/01/2021 at 13:45 Approved by: Max Ruelas M.D. on 02/01/2021 at 13:51 Normal [facility] ER URINE PROFILEon Bilirubin Ql (U) Negative Normal NEGATIVE [facility] Comment on above: Performed By: #### E RUR #### [facility] [address] [place] [address] Lauri Pily Clarity (U) CLEAR Normal CLEAR [facility] Comment on above: Performed By: #### E RUR #### [facility] [address] [place] [address] Lauri Pily Color (U) LT. YELLOW Normal YELLOW [facility] Comment on above: Performed By: #### E RUR #### [facility] [address] [place] [address] Lauri Pily ERUAHD A micrscopic examina tion will be performed if indicated. Normal [facility] Comment on above: Performed By: #### E RUR #### [facility] [address] [place] [address] Lauri Pily Glucose Ql (U) Negative Normal NEGATIVE [facility] Comment on above: Performed By: #### E RUR #### [facility] [address] [place] [address] Lauri Pily Hemoglobin Ql (U) Negative Normal NEGATIVE [facility] Comment on above: Performed By: #### E RUR #### [facility] [address] [place] [address] Lauri Pily Ketones Ql (U) TRACE Abnormal NEGATIVE [facility] Comment on above: Performed By: #### E RUR #### [facility] [address] [place], [place] [id number] Lauri Nascimento LEUKOCYTES Negative Normal NEGATIVE [facility] Comment on above: Performed By: #### E RUR #### [facility] [address] [place], [place] [id number] Lauri Nascimento Nitrite Ql (U) Negative Normal NEGATIVE [facility] Comment on above: Performed By: #### E RUR #### [facility] [address] [place] [address] Lauri Nascimento pH (U) 5.0 [pH] Normal 5-9 [facility] Comment on above: Performed By: #### E RUR #### [facility] [address] [place] [address] Lauri Nascimento SPEC GRAVITY 1.025 Normal 1.005-<=1. 025 [facility] Comment on above: Performed By: #### E RUR #### [facility] [address] [place] [address] Lauri Nascimento UA PROTEIN TRACE Normal NEGATIVE/ TRACE [facility] Comment on above: Performed By: #### E RUR #### [facility] [address] [place] [address] Lauri Nascimento UR MICRO IND NOT INDICATED Normal [facility] Comment on above: Performed By: #### E RUR #### [facility] [address] [place] [address] Lauri Nascimento Urobilinogen Qn (U) 0.2 {Irineo'U}/dL Normal 0.2 - 1. 0 [facility] Comment on above: Performed By: #### E RUR #### [facility] [address] [place] [address] Lauri Nascimento PROF CHEM 8 (BAS METB)on Anion gap [Moles/Vol] 15.6 mmol/L Normal Th [facility] Comment on above: Performed By: #### M MA2 #### [facility] [address] [address] [address] Christian Lebron Calcium [Mass/Vol] 8.8 mg/dL Normal 8.4-10.2 [facility] Comment on above: Performed By: #### M MA2 #### [facility] [address] [address] [address] Christian Lebron Chloride [Moles/Vol] 109 mmol/L Critically high 98-107 [facility] Comment on above: Performed By: #### M MA2 #### [facility] [address] [address] [address] Christian Lebron CO2 [Moles/Vol] 23.1 mmol/L Normal 22.0-30.0 [facility] Comment on above: Performed By: #### M MA2 #### [facility] [address] [place] [address] Dr. Christian Lebron Creatinine [Mass/Vol] 1.49 mg/dL Critically high 0.52-1.04 [facility] Comment on above: Performed By: #### M MA2 #### [facility] [address] [place] [address] Dr. Christian Lebron EGFR-AF URUGUAYAN 41 mL/min/1.73m2 Critically low >=60 [facility] Comment on above: Performed By: #### M MA2 #### [facility] [address] [place] [address] Dr. Christian Lebron EGFR-NON AF URUGUAYAN 34 mL/min/1.73m2 Critically low >=60 [facility] Comment on above: Performed By: #### M MA2 #### [facility] [address] [place] [address] Dr. Christian Lebron Glucose [Mass/Vol] 114 mg/dL Critically high 74-106 [facility] Comment on above: Performed By: #### M MA2 #### [facility] [address] [address] [address] Christian Lebron Potassium [Moles/Vol] 3.7 mmol/L Normal 3.4-5.0 [facility] Comment on above: Performed By: #### M MA2 #### [facility] [address] [place] [address] Dr. Christian Lebron Sodium [Moles/Vol] 144 mmol/L Normal 137-145 [facility] Comment on above: Performed By: #### M MA2 #### [facility] [address] [place] [address] Dr. Christian Lebron Urea nitrogen [Mass/Vol] 28.0 mg/dL Critically high 7.0-17.0 [facility] Comment on above: Performed By: #### M MA2 #### [facility] [address] [place] [address] Dr. Christian Lebron Urea nitrogen/Creatinine [Mass ratio] 18.8 mg/mg Normal [facility] Comment on above: Performed By: #### M MA2 #### [facility] [address] [place] [address] Dr. Christian Lebron Rapid Covid-19 PCR (CVDRPD)o n 02-01-2021 SARS-CoV-2 (COVID-19) RNA ALLISON+probe Ql (Unsp spec) Not detected Normal NOT DETECTED [facility] Comment on above: Result Comment: This test is not yet approved or cleared by the [place] Food and Drug Administration (FDA). This test was developed by [employer], [place], [place]. The performance characteristics of this test were validated by [facility]. The results are not intended to be used as the sole means for clinical diagnosis or patient management decisions. [facility] is authorized under Clinical Laboratory Improvement Amendments (CLIA) to perform high- complexity testing. When diagnostic testing is negative, the possibility of a false negative should be considered in the context of a patient's recent exposures and the presence of clinical signs and symptoms consistent with SARS-CoV-2. Performed By: #### H OMCY #### [facility] [address] [place] [address] Dr. Christian Lebron TROPONIN, HIGH SENSITIVITYon 02-01-2021 HSTROP 15.4 pg/mL Normal 4.0-35.5 [facility] Comment on above: Result Comment: CUT- OFF POINTS HAVE BEEN ESTABLISHED BASED ON THE FOURTH UNIVERSAL DEFINITIONS OF MYOCARDIAL INFARCTION. THE UPPER REFERENCE LIMIT (URL) OF TROPONIN, DEFINED THE 99TH PERCENTILE OF cTnI DISTRIBUTION IN A REFERENCE POPULATION, HAS BEEN CONFIRMED THE DECISION THRESHOLD FOR [place] DIAGNOSIS. Performed By: #### H STROPN #### [facility] [address] [place], [place] [id number] Lauri Nascimento XR CHEST 2 Von 02-01-2021 [...] by: YAQUELIN ANSARI Date: 2021-01-31 22:40 Normal [facility] XR PELVIS 1_2 VIEWSon 2020 XR PELVIS [...] by: YAQUELIN ANSARI Date: 2021-01-31 22:41 Normal [facility] BNPon 01-31-2021 Natriuretic peptide B (Bld) [Mass/Vol] 1162.0 pg/mL Normal <=1,800.0 [facility] Comment on above: Performed By: #### H OMCY #### [facility] [address] [place] [address] Dr. Christian Lebron CBC AUTO DIFFon 01-31-2021 BASO # 0.0 103/ul Normal 0.0-0.1 [facility] Comment on above: Performed By: #### E RUR #### [facility] [address] [place] [address] Lauri Nascimento Basophils/100 WBC (Bld) 0.4 % Normal 0.2-2.0 [facility] Comment on above: Performed By: #### E RUR #### [facility] [address] [place] [address] Lauri Pily EO # 0.1 103/ul Normal 0.0-0.7 [facility] Comment on above: Performed By: #### E RUR #### [facility] [address] [place], [place] [address] Lauri Pily Eosinophils/100 WBC (Bld) 0.9 % Normal 0.9-7.0 [facility] Comment on above: Performed By: #### E RUR #### [facility] [address] [place] [address] Lauri Pily Erythrocyte distribution width (RBC) [Ratio] 13.8 % Normal 11.0-15.0 [facility] Comment on above: Performed By: #### E RUR #### [facility] [address] [place] [address] Lauri Pily Hematocrit (Bld) [Volume fraction] 42.8 % Normal 36.0-48.0 [facility] Comment on above: Performed By: #### E RUR #### [facility] [address] [place] [address] Lauri Pily Hemoglobin (Bld) [Mass/Vol] 13.8 g/dL Normal 12.0-16.0 [facility] Comment on above: Performed By: #### E RUR #### [facility] [address] [place] [address] Lauri Pily IG # 0.04 10e3/ul Critically high 0.00-0.03 [facility] Comment on above: Performed By: #### E RUR #### [facility] [address] [place] [address] Lauri Pily IG % 0.4 % Normal 0.0-0.5 [facility] Comment on above: Performed By: #### E RUR #### [facility] [address] [place], [place] [address] Lauri Pily LYMPH # 2.3 103/ul Normal 1.2-3.8 [facility] Comment on above: Performed By: #### E RUR #### [facility] [address] [place], [place] [address] Lauri Pily Lymphocytes/100 WBC (Bld) 21.7 % Normal 20.5-60.0 [facility] Comment on above: Performed By: #### E RUR #### [facility] [address] [place], [place] [address] Lauri Nascimento MANUAL DIFF REQ NO Normal [facility] Comment on above: Performed By: #### E RUR #### [facility] [address] [place], [place] [address] Lauri Nascimento MCH (RBC) [Entitic mass] 28.9 pg Normal 26.7-34.0 [facility] Comment on above: Performed By: #### E RUR #### [facility] [address] [place] [address] Lauri Nascimento MCHC (RBC) [Mass/Vol] 32.2 g/dL Normal 29.9-35.2 [facility] Comment on above: Performed By: #### E RUR #### [facility] [address] [place] [address] Lauri Nascimento MCV (RBC) [Entitic vol] 89.7 fL Normal 81.0-99.0 [facility] Comment on above: Performed By: #### E RUR #### [facility] [address] [place], [place] [address] Lauri Nascimento MONO # 0.9 103/ul Critically high 0.3-0.8 [facility] Comment on above: Performed By: #### E RUR #### [facility] [address] [place] [address] Lauri Nascimento Monocytes/100 WBC (Bld) 8.0 % Normal 1.7-12.0 [facility] Comment on above: Performed By: #### E RUR #### [facility] [address] [place], [place] [address] Lauri Gavinen NEUT # 7.4 103/ul Critically high 1.4-6.5 [facility] Comment on above: Performed By: #### E RUR #### [facility] [address] [place], [place] [address] Lauri Pily Neutrophils/100 WBC (Bld) 68.6 % Normal 43.0-75.0 [facility] Comment on above: Performed By: #### E RUR #### [facility] [address] [place], [place] [address] Lauri Nascimento Platelet mean volume (Bld) [Entitic vol] 11.8 fL Normal 9.5-13.5 [facility] Comment on above: Performed By: #### E RUR #### [facility] [address] [place], [place] [address] Lauri Nascimento PLT 190 103/ul Normal 150-450 [facility] Comment on above: Performed By: #### E RUR #### [facility] [address] [place] [address] Lauri Nascimento RBC 4.77 106/ul Normal 4.20-5.40 [facility] Comment on above: Performed By: #### E RUR #### [facility] [address] [place] [address] Lauri Nascimento WBC 10.8 103/ul Normal 4.0-11.0 [facility] Comment on above: Performed By: #### E RUR #### [facility] [address] [place] [address] Lauri Nascimento PROF 14(COMP METB)on 021 Albumin [Mass/Vol] 3.6 g/dL Normal 3.5-5.0 [facility] Comment on above: Performed By: #### H OMCY #### [facility] [address] [place] [address] Dr. Christian Lebron Albumin/Globulin [Mass ratio] 1.0 {ratio} Normal [facility] Comment on above: Performed By: #### H OMCY #### [facility] [address] [place] [address] Dr. Christian Lebron ALP [Catalytic activity/Vol] 74 U/L Normal 38-126 [facility] Comment on above: Performed By: #### H OMCY #### [facility] [address] [place] [address] Dr. Christian Lebron ALT [Catalytic activity/Vol] 19 U/L Normal 9-52 [facility] Comment on above: Performed By: #### H OMCY #### [facility] [address] [address] [address] Christian Lebron Anion gap [Moles/Vol] 11.7 mmol/L Normal Th e [facility] Comment on above: Performed By: #### H OMCY #### [facility] [address] [address] [address] Christian Lebron AST [Catalytic activity/Vol] 16 U/L Normal 14-36 [facility] Comment on above: Performed By: #### H OMCY #### [facility] [address] [address] [address] Christian Lebron Bilirubin [Mass/Vol] 0.4 mg/dL Normal 0.2-1.3 [facility] Comment on above: Performed By: #### H OMCY #### [facility] [address] [address] [address] Christian Lebron Calcium [Mass/Vol] 9.3 mg/dL Normal 8.4-10.2 [facility] Comment on above: Performed By: #### H OMCY #### [facility] [address] [address] [address] Christian Lebron Chloride [Moles/Vol] 107 mmol/L Normal 98-107 [facility] Comment on above: Performed By: #### H OMCY #### [facility] [address] [address] [address] Christian Lebron CO2 [Moles/Vol] 26.0 mmol/L Normal 22.0-30.0 [facility] Comment on above: Performed By: #### H OMCY #### [facility] [address] [address] [address] Christian Lebron Creatinine [Mass/Vol] 1.63 mg/dL Critically high 0.52-1.04 [facility] Comment on above: Performed By: #### H OMCY #### [facility] [address] [address] [address] Christian Lebron EGFR-AF URUGUAYAN 37 mL/min/1.73m2 Critically low >=60 [facility] Comment on above: Performed By: #### H OMCY #### [facility] [address] [address] [address] Christian Lebron EGFR-NON AF URUGUAYAN 30 mL/min/1.73m2 Critically low >=60 [facility] Comment on above: Performed By: #### H OMCY #### [facility] [address] [address] [address] Christian Lebron Globulin (S) [Mass/Vol] 3.7 g/dL Normal [facility] Comment on above: Performed By: #### H OMCY #### [facility] [address] [address] [address] Christian Lebron Glucose [Mass/Vol] 96 mg/dL Normal 74-106 [facility] Comment on above: Performed By: #### H OMCY #### [facility] [address] [address] [address] Christian Lebron Potassium [Moles/Vol] 3.7 mmol/L Normal 3.4-5.0 [facility] Comment on above: Performed By: #### H OMCY #### [facility] [address] [address] [address] Christian Lebron Protein [Mass/Vol] 7.3 g/dL Normal 6.1-8.2 [facility] Comment on above: Performed By: #### H OMCY #### [facility] [address] [address] [address] Christian Lebron Sodium [Moles/Vol] 141 mmol/L Normal 137-145 [facility] Comment on above: Performed By: #### H OMCY #### [facility] [address] [address] [address] Christian Lebron Urea nitrogen [Mass/Vol] 31.0 mg/dL Critically high 7.0-17.0 [facility] Comment on above: Performed By: #### H OMCY #### [facility] [address] [address] [address] Christian Lebron Urea nitrogen/Creatinine [Mass ratio] 19.0 mg/mg Normal [facility] Comment on above: Performed By: #### H OMCY #### [facility] [address] [place] [address] Dr. Christian Lebron PROTIMEon 01-31-2021 INR Coag (PPP) [Relative time] {INR} Normal [facility] Comment on above: Performed By: #### H OMCY #### [facility] [address] [place] [address] Dr. Christian Lebron INR GUIDELINES SEE BELOW Normal [facility] Comment on above: Result Comment: EVER RED INR: 2.0 - 3.0 CONDITIONS NOT LISTED BELOW 2.5 - 3.5 FOR PROSTHETIC HEART VALVE REPLACEMENT 2.5 - 3.5 RECURRENT THROMBOSIS Performed By: #### H OMCY #### [facility] [address] [place] [address] Dr. Christian Lebron PT Coag (PPP) [Time] 10.0 s Normal 9.0-11.6 [facility] Comment on above: Performed By: #### H OMCY #### [facility] [address] [place] [address] Dr. Christian Lebron PTTon 01-31-2021 aPTT Coag (Bld) [Time] 28.2 s Normal 22.3-36.2 Th [facility] Comment on above: Performed By: #### H OMCY #### [facility] [address] [place] [address] Dr. Christian Lebron TROPONIN, HIGH SENSITIVITYon 01-31-2021 HSTROP 15.5 pg/mL Normal 4.0-35.5 [facility] Comment on above: Result Comment: CUT- OFF POINTS HAVE BEEN ESTABLISHED BASED ON THE FOURTH UNIVERSAL DEFINITIONS OF MYOCARDIAL INFARCTION. THE UPPER REFERENCE LIMIT (URL) OF TROPONIN, DEFINED THE 99TH PERCENTILE OF cTnI DISTRIBUTION IN A REFERENCE POPULATION, HAS BEEN CONFIRMED THE DECISION THRESHOLD FOR [place] DIAGNOSIS. Performed By: #### H OMCY #### [facility] [address] [place] [address] Dr. Christian Lebron TSHon 01-31-2021 TSH 3.025 uIU/mL Normal 0.470-4.68 0 [facility] Comment on above: Performed By: #### H OMCY #### [facility] [address] [address] [address] Christian Lebron TSH RANGE SEE BELOW Normal [facility] Comment on above: Result Comment: <0.3 4 UIU/ml HYPERTHYROID 0.34-5.60 UIU/ml EUTHYROID >5.60 UIU/ml HYPOTHYROID Performed By: #### H OMCY #### [facility] [address] [address] [address] Christian Lebron Social History Date Type Detail Facility Start: 11-14-2023 Alcohol Comment caffeine intak e: 1-2 cups per day [facility] Start: 04-10-2023 End: 10-16-2023 Sex Assigned At [facility] Ulien [facility] [employer] Other Start: 04-10-2023 End: 10-16-2023 Consumes alcohol occasionally Consumes alcohol occasionally [facility] [employer] DO Work Phone: Comment on above: coffee 1 cup daily; 1 pack per week; Start: 10-16-2023 End: 11-14-2023 Alcohol intake Lifetime non-drinker (finding) [facility] Start: 10-07-1987 Tobacco smoking stat [facility] Smokes tobacco daily [facility] Start: 04-08-2023 Tobacco use and exposure Smokeless tobacco non-user [facility] [facility] Start: 08-13-2022 End: 08-13-2022 Tobacco smoking status NVIS Smoker (finding) [facility] Start: 10-07-1987 History of tobacco use Cigarette Smo ker [facility] Start: 1940 [facility] Assigned At [facility] Start: 1940 Sex Assigned At Not on file [facility] History of tobacco use Passive smoker [facility] Healthcare Vital Signs Date Time Vital Sign Value Performing Clinician Facility 11-14-2023 17:04-0500 Body height 162.6 cm Ismael Aquino DPM Work Phone: [facility] 11-14-2023 17:04-0500 Body mass index (BMI) [Ratio] 29.52 kg/m2 Ismael Aquino DPM Work Phone: [facility] 11-14-2023 17:04-0500 Body weight 78.02 kg Ismael Aquino DPM Work Phone: [facility] 11-14-2023 17:04-0500 Diastolic blood pressure 80 mm[Hg] Ismael Aquino DPM Work Phone: [facility] 11-14-2023 17:04-0500 Heart rate 77 /min Ismael Aquino DPM Work Phone: [facility] 11-14-2023 17:04-0500 Systolic blood pressure 123 mm[Hg] Ismael Aquino DPM Work Phone: [facility] 09-26-2023 12:00-0500 Body height 167.64 cm Sergio Escudero Other [employer] Other 09-26-2023 12:00-0500 Body mass index (BMI) [Ratio] 25.01 kg/m2 Sergio Escudero Other [employer] Other 09-26-2023 12:00-0500 Body temperature 96.1 [degF] Sergio Escudero Other [employer] Other 09-26-2023 12:00-0500 Body weight 70.31 kg Sergio Escudero Other [employer] Other 09-26-2023 12:00-0500 Diastolic blood pressure 62 mm[Hg] Sergio Escudero Other [employer] Other 09-26-2023 12:00-0500 SaO2% (BldA) [Mass fraction] 99 % Sergio Escudero Other [employer] Other 09-26-2023 12:00-0500 Systolic blood pressure 120 mm[Hg] Sergio Escudero Other [employer] Other 03-20-2023 11:30-0400 Body height 167.64 cm Raysa Robins Other [employer] Other 03-20-2023 11:30-0400 Body mass index (BMI) [Ratio] 25.01 kg/m2 Raysa Robins Other [employer] Other 03-20-2023 11:30-0400 Body temperature 97.8 [degF] Raysa Robins Other [employer] Other 03-20-2023 11:30-0400 Body weight 70.31 kg Raysa Robins Other [employer] Other 03-20-2023 11:30-0400 Diastolic blood pressure 86 mm[Hg] Raysa Robins Other [employer] Other 03-20-2023 11:30-0400 SaO2% (BldA) [Mass fraction] 99 % Raysa Robins Other [employer] Other 03-20-2023 11:30-0400 Systolic blood pressure 122 mm[Hg] Raysa Robins Other [employer] Other 09-21-2022 12:15-0500 Body height 167.64 cm Abdulaziz Alvarez MD Work Phone: [facility] [employer] 250 DO Work Phone: 09-21-2022 12:15-0500 Body mass index (BMI) [Ratio] 24.05 kg/m2 Abdulaziz Alvarez MD Work Phone: [facility] [employer] 250 DO Work Phone: 09-21-2022 12:15-0500 Body surface area Derived from formula 1.76 m2 Abdulaziz Alvarez MD Work Phone: [facility] 250 DO Work Phone: 09-21-2022 12:15-0500 Body weight 67.59 kg Abdulaziz Alvarez MD Work Phone: [facility] 250 DO Work Phone: 09-21-2022 12:15-0500 Diastolic blood pressure 78 mm[Hg] Abdulaziz Alvarez MD Work Phone: [facility] 250 DO Work Phone: 09-21-2022 12:15-0500 Heart rate 84 /min Abdulaziz Alvarez MD Work Phone: [facility] 250 DO Work Phone: 09-21-2022 12:15-0500 Systolic blood pressure 126 mm[Hg] Abdulaziz Alvarez MD Work Phone: [facility] [facility] 250 DO Work Phone: 09-12-2022 11:45-0500 Body height 167.64 cm Sergio Escudero Other [employer] Other 09-12-2022 11:45-0500 Body mass index (BMI) [Ratio] 27.44 kg/m2 Sergio Escudero Other [employer] Other 09-12-2022 11:45-0500 Body temperature 97.8 [degF] Sergio Escudero Other [employer] Other 09-12-2022 11:45-0500 Body weight 77.11 kg Sergio Escudero Other [employer] Other 09-12-2022 11:45-0500 Diastolic blood pressure 68 mm[Hg] Sergio Kinglucita Other [facility] [employer] Other 09-12-2022 11:45-0500 SaO2% (BldA) [Mass fraction] 98 % Sergio Kinglucita Other [facility] [employer] Other 09-12-2022 11:45-0500 Systolic blood pressure 116 mm[Hg] Sergio Kinglucita Other [facility] [employer] Other 08-14-2022 12:47-0500 Diastolic blood pressure 71 mm[Hg] DO Edward Bernstein Work Phone: [facility] 08-14-2022 12:47-0500 Systolic blood pressure 177 mm[Hg] DO Edward Bernstein Work Phone: [facility] 08-14-2022 12:00-0500 Body temperature 98.3 [degF] DO Edward Bernstein Work Phone: [facility] 08-14-2022 12:00-0500 Heart rate 79 /min DO Edward Bernstein Work Phone: [facility] 08-14-2022 12:00-0500 Respiratory rate 16 /min DO Edward Bernstein Work Phone: [facility] 08-14-2022 12:00-0500 SaO2% (BldA) [Mass fraction] 98 % DO Edward Bernstein Work Phone: [facility] 08-14-2022 04:50-0500 Body weight 66.6 kg DO Edward Bernstein Work Phone: [facility] 08-13-2022 20:45-0500 Body temperature 97.8 [degF] DO Edward Bernstein Work Phone: [facility] 08-13-2022 20:45-0500 Diastolic blood pressure 68 mm[Hg] DO Edward Bernstein Work Phone: [facility] 08-13-2022 20:45-0500 Heart rate 80 /min DO Edward Bernstein Work Phone: [facility] 08-13-2022 20:45-0500 Respiratory rate 20 /min DO Edward Bernstein Work Phone: [facility] 08-13-2022 20:45-0500 SaO2% (BldA) [Mass fraction] 99 % DO Edward Bernstein Work Phone: [facility] 08-13-2022 20:45-0500 Systolic blood pressure 188 mm[Hg] DO Edward Bernstein Work Phone: [facility] 08-13-2022 11:50-0500 Body height 167.64 cm DO Edward Bernstein Work Phone: [facility] 08-13-2022 06:00-0500 Body weight 68.8 kg DO Edward Bernstein Work Phone: [facility] Functional Status Date Assessment Result Facility 08-14-2022 Functional status Patient at Baseline [facility] Work Phone: 08-10-2022 Functional status Patient at Baseline [facility] Work Phone: Mental Status Date Assessment Result Facility 08-14-2022 Cognitive function Cognitive Sta tus Patient at Baseline [facility] Work Phone: 08-10-2022 Cognitive function Cognitive Sta tus Patient at Baseline [facility] Work Phone: Clinical Notes 08-10-2022 [...] Ismael Aquino DPM documented in this encounter [facility] 09-26-2023 Evaluation note Encounter Date Diagnosis Assessment Notes Sep, Asymptomatic stenosis of right carotid artery (ICD-10 - I65.21) I recommend seeing this patient back in 1 year. I admonished her for smoking and offered her free resources to quit by [facility]. She refused. There is no indication for any surgical intervention at this time. [employer] Other 06-14-2023 Evaluation note* Encounter Date Diagnosis [...] issues prior to her next scheduled appointment. [employer] Other 12-07-2022 Evaluation note* Encounter Date Diagnosis [...] for results in the next few weeks. [employer] Other 11-08-2022 Discharge summary Author Dee Kenney [facility] August 14, 2022 1:38pm Note Date/Time August 14, 2022 1 :13pm [facility] [address] [place], [place] [id number] Discharge Summary Signed Patient: Carley Quintanilla MR#: [id number] : 1940 Acct:[id number] Age/Sex: 81 / F Adm Date: 2 Loc: 4 Room: 8W5828-[address]: Dee Kenney MD Copies to: [...] and vascular surgery. Called her POA Dulce Rickel and updated on her condition and discharge [...] Regular Additional Instructions: You should have a [employer] 30 Day Melter Helper prior to discharge. Instructions: Carotid Artery Disease, [...] <Electronically signed by Dee Kenney MD> 08/14/22 1338 [facility] Work Phone: 1(335) 255-642211-08-2022 Progress note Author Sergio Escudero [facility] August 14, 2022 11:52am Note Date/Time August 14, 2022 1 0:02am [facility] [address] [place] [address] Vascular Surgery Progress Note Signed with Shashi Patient: Carley Quintanilla MR#: [id number] : 1940 Acct:[id number] Age/Sex: 81 / F Adm Date: 2 Loc: 4N Room: 4C8035-1 Type: ADM IN Attending Dr: Dee Kenney [...] signed by Sergio Escudero MD> 08/14/22 1002 [facility] Work Phone: 1(268) 103-187611-07-2022 Progress note Author Dee Kenney [facility] August 13, 2022 12:59pm Note Date/Time August 13, 2022 1 2:44pm [facility] [address] [place] [address] Hospitalist Progress Note Signed Patient: Carley Quintanilla MR#: [id number] : 1940 Acct:[id number] Age/Sex: 81 / F Adm Date: 2 Loc: Room: [address] [place] [address] Type: ADM IN Attending Dr: Dee Kenney [...] <Electronically signed by Dee Kenney MD> 08/13/22 1259 [facility] Work Phone: 1(709) 816-981611-07-2022 Progress note Author Abdulaziz Alvarez [facility] August 13, 2022 11:03am Note Date/Time August 13, 2022 1 1:03am [facility] [address] [place] [address] Cardiology Progress Note Signed Patient: Carley Quintanilla MR#: [id number] : 1940 Acct:[id number] Age/Sex: 81 / F Adm Date: 2 Loc: 4N Room: 1N7356-5 Type: ADM IN Attending Dr: Dee Kenney [...] cessation education Documented By: Abdulaziz Alvarez MD, [facility] 2 1100 Signed By: <Electronically signed by [facility] Abdulaziz Alvarez> 08/13/22 1103 [facility] Work Phone: 1(618) 281-905711-07-2022 Consult note Author Sergio Escudero [facility] August 13, 2022 9:29am Note Date/Time August 13, 2022 8 :53am [facility] [address] [place] [address] Vascular Surgery Consult Note Signed Patient: Carley Quintanilla MR#: [id number] : 1940 Acct:[id number] Age/Sex: 81 / F Adm Date: 2 Loc: Room: [address] [place] [address] Type: ADM IN Attending Dr: Dee Kenney [...] signed by Sergio Escudero MD> 08/13/22 0929 [facility] Work Phone: 1(373) 184-124711-06-2022 Progress note Author Dee Kenney [facility] August 12, 2022 4:23pm Note Date/Time August 12, 2022 4 :18pm [facility] [address] [place] [address] Hospitalist Progress Note Signed Patient: Carley Quintanilla MR#: [id number] : 1940 Acct:[id number] Age/Sex: 81 / F Adm Date: 2 Loc: 4N Room: 8F5069-3 Type: ADM IN Attending Dr: Dee Kenney [...] 1,000 Ml IV 08/10/23 20:29 75 mls/hr .[id number] CARRI Administration Levothyroxine Sodium 75 mcg 08/11/22 [...] 08/11/22 09:00 08/12/22 09:09 Omeprazole 20 Mg Capsule. PO 08/11/23 08:59 [...] signed by Dee Kenney MD> 08/12/22 1623 [facility] Work Phone: 1(511) 206-932111-06-2022 Progress note Author Abdulaziz Alvarez [facility] August 12, 2022 10:01am Note Date/Time August 12, 2022 1 0:01am [facility] [address] [place] [address] Cardiology Progress Note Signed Patient: Carley Quintanilla MR#: [id number] : 1940 Acct:[id number] Age/Sex: 81 / F Adm Date: 2 Loc: Room: [address] [place] [address] Type: ADM IN Attending Dr: Dee Kenney [...] cessation education Documented By: Abdulaziz Alvarez MD, [facility] 2 0958 Signed By: <Electronically signed by [facility] Abdulaziz Alvarez> 08/12/22 1001 [facility] Work Phone: 1(668) 605-918711-05-2022 Progress note Author Dee Kenney [facility] August 11, 2022 2:19pm Note Date/Time August 11, 2022 2 :15pm [facility] [address] [place] [address] Hospitalist Progress Note Signed Patient: Carley Quintainlla MR#: [id number] : 1940 Acct:[id number] Age/Sex: 81 / F Adm Date: 2 Loc: Room: [address] [place] [address] Type: ADM IN Attending Dr: Dee Kenney [...] 08/11/22 09:00 08/11/22 09:07 Aspirin 81 Mg Tablet. PO 08/11/23 08:59 [...] 1,000 Ml IV 08/10/23 20:29 75 mls/hr .[id number] CARRI Administration Levothyroxine Sodium 75 mcg 08/11/22 06:30 08/11/22 06:16 Levothyroxine 75 Mcg Tablet PO 08/11/23 06:29 75 mcg DAILY.0630 CARRI Administration Nicotine 1 each 08/11/22 09:00 08/11/22 09:07 Nicotine Patch 21 Mg/24hr 1 Each Patch.Td24 TRANSDERML 08/11/23 08:59 Not Given DAILY CARRI Omeprazole 20 mg 08/11/22 09:00 08/11/22 09:07 Omeprazole [address] BAZAN 08/11/23 08:59 [...] <Electronically signed by Dee Kenney MD> 08/11/22 1411 [facility] Work Phone: [phone]) 275-138511-05-2022 Consult note Author Abdulaziz Alvarez [facility] August 11, 2022 1:13pm Note Date/Time August 11, 2022 1 :09pm [facility] [address] [place] [address] Cardiology Consult Note Signed Patient: Carley Quintanilla MR#: [id number] : 1940 Acct:[id number] Age/Sex: 81 / F Adm Date: 2 Loc: 4N Room: [address] [place] [address] Type: ADM IN Attending Dr: Dee Kenney MD Copies to: MD Abdulaziz Ortiz II, MD, [facility] Dee Kenney MD~ Cardiology HPI History of [...] of hypertensionmanaged with Dr. Kali Maharaj in [facility]. She has been on diltiazem 360 mg daily. The patient has been stable since admission heart rate in the 50s. Diltiazem has been withheld Review of Systems Review of Systems Review of systems: 11 point review of system otherwise was normal. [facility] Vaccinated for COVID-19?: Yes Medical History (Updated 08/11/22 @ 13:09 by Abdulaziz Alvarez MD) HTN (hypertension) Surgical History Hx of tonsillectomy Family History Other HTN (hypertension) Social History Smoking Status: Current every day smoker Tobacco Type: cigarettes Substance Use Type: None Meds Medications and Allergies Allergies chocolate flavor Allergy (Verified 08/22/21 15:09) Unknown Reaction Home Medications atorvastatin 80 [...] Lymph # (Auto) 0.9 L (1.00-4.8) x10E3/uL [place] # (Auto) 0.6 (0.0-0.8) x10E3/uL Eos # [...] 07:59 15:59 Intake Total 1480 / 1480 / 1959 Output Total 400 / 400 Balance 1080 / 1080 / 1959 Intake: IV 1000 / 1000 1000 / 1000 Sodium Chloride 0.9% 1,000 ml 1 1000 / 1000 1000 / 1000 ,000 ml @ 75 mls/hr IV .[id number] [facility] Rx#:[id number] Oral 480 / 480 960 / 960 [...] Tobacco use Documented By: Abdulaziz Alvarez MD, [facility] 2 1304 Signed By: <Electronically signed by [facility] Abdulaziz Alvarez> 08/11/22 1313 [facility] Work Phone: 1(820) 451-800011-04-2022 History and physical note Author Dee Kenney [facility] August 10, 2022 8:17pm Note Date/Time August 10, 2022 8 :03pm [facility] [address] [place] [address] Hospitalist H&P Signed Patient: Carley Quintanilla MR#: [id number] : 1940 Acct:[id number] Age/Sex: 81 / F Adm Date: 2 Loc: Room: [address] [place] [address] Type: ADM IN Attending Dr: Dee Kenney [...] than mentioned in history of presenting illness [facility] Medical History (Updated 08/10/22 @ 20:14 [...] % (Auto) 9.5 % (.) 08/10/22 17:15 [place] % (Auto) 5.7 % (.) 08/10/22 17:15 Eos % (Auto) 0.7 % (.) 08/10/22 17:15 Baso % (Auto) 0.5 % (.) 08/10/22 17:15 Neut # (Auto) 8.3 x10E3/uL (1.8-7.7) H 08/10/22 17:15 Lymph # (Auto) 0.9 x10E3/uL (1.00-4.8) L 08/10/22 17:15 [place] # (Auto) 0.6 x10E3/uL (0.0-0.8) 08/10/22 17:15 [...] pH 5.5 (5.0-9.0) 08/10/22 19:20 Ur Specific [place] 1.014 (1.001-1.030) 08/10/22 19:20 Urine Protein Negative [...] <Electronically signed by Dee Kenney MD> 08/10/222016 [facility] Work Phone: [facility] [employer] Other Evaluation note* Diagnosis Onset Date Resolution Status KRISTAN (acute kidney injury) ac jen Bilateral carotid artery disease acute HTN (hypertension) acute Syncope acute Tobacco abuse acute [facility] Work Phone: Evaluation noteNo assessment information available [facility] Work Phone: Evaluutiet note* Diagnosis PVD (peripheral vascular disease) ([facility])- Primary Unspecified peripheral vascular disease Onychomycosis Dermatophytosis [...] History Foot Surgery Hospitalization History hypertension from [facility] [employer] Other History general Narrative - Reported* Type Description Date Medical History CAROTID STENOSIS BILATERAL Medical History hypertension Medical History hypercholesterolemia Medical History acid reflux Surgical History Foot Surgery Surgical History tonsillectomy Surgical History cataract Hospitalization History [facility] [employer] Other Progress note Author Abdulaziz Alvarez [facility] August 14, 2022 5:26pm Note Date/Time August 14, 2022 5 :26pm [facility] [address] [place] [address] Cardiology Progress Note Signed Patient: Carley Quintanilla MR#: [id number] : 1940 Acct:[id number] Age/Sex: 81 / F Adm Date: 2 Loc: Room: [address] [place] [address] Type: DIS IN Attending Dr: Dee Kenney [...] cessation education Documented By: Abdulaziz Alvarez MD, [facility] 2 1725 Signed By: <Electronically signed by MD XENA Alvarez> 08/14/22 1726 [facility] Work Phone: Summary Purpose Family History [...] and content) DATE CREATED AUTHOR 09/15/2018 [facility] DATE CREATED AUTHOR AUTHOR'S ORGANIZ ATION 02/02/2021 [employer] DATE CREATED AUTHOR AUTHOR'S ORGANIZ ATION 08/30/2021 [facility] DATE CREATED AUTHOR AUTHOR'S ORGANIZ ATION 09/22/2021 [facility] DATE CREATED AUTHOR AUTHOR'S ORGANIZ ATION 09/28/2022 [employer] DATE CREATED AUTHOR AUTHOR'S ORGANIZ ATION 03/18/2023 [facility] DATE CREATED AUTHOR AUTHOR'S ORGANIZ ATION 10/03/2023 [facility] DATE CREATED AUTHOR AUTHOR'S ORGANIZ ATION 01/31/2024 [facility] REASON FOR VISIT (unrecogniz ed section and [...] Active Member Role Status Dates Edward Bernstein , DO Emergency Provider Active Kali Maharaj II MD Primary Care Provider Active Dee Kenney MD Admit Provider, Attending Provider Active Megan Geisert , MOLECULAR GENETICIST Other Provider Active Kalina Nelson , MOLECULAR GENETICIST Other Provider Active Jhonatan Oakes MD Other Provider Active Raysa Robins , DIRECTOR UTILIZATION MANAGEMENT-C Other Provider Active Shelby Unger MD Other Provider Active Sergio Escudero MD Other Provider Active Team Status: Active Member Role Status Dates Kali Maharaj II MD Primary Care Provider Active Abdulaziz Alvarez MD Attending Provider Active Team Status: Inactive Member Role Status Berta Bernstein DO Emergency Provider Active Kali Maharaj II MD Primary Care Provider Active Dee eKnney MD Admit Provider, Attending Provider Active Meganana Jenkins , MOLECULAR GENETICIST Other Provider Active Kalina Nelson , MOLECULAR GENETICIST Other Provider Active Jhonatan Oakes MD Other Provider Active Raysa Robins , DIRECTOR UTILIZATION MANAGEMENT-C Other Provider Active Shelby Unger MD Other Provider Active Sergio Escudero MD Other Provider Active Team Status: Inactive Member Role Status Dates Kali Maharaj II MD Primary Care Provider Active Raysa Robins , DIRECTOR UTILIZATION MANAGEMENT-C Attending Provider Active [employer] Work[employer] Relationship Specialty Start Date End Date Kali Maharaj MD [address] [facility] [address] [place] [address] PCP - [employer] 12/05/22 Kali Maharaj MD [address] [facility] [address] [place] [address] PCP - General Internal Medicine 04/10/23 Sarah Lozada LSW [facility] 10/30/23 [employer] Worker Relationship Specialty Start Date End Date Kali Maharaj MD [address] [facility] [address] [place] [address] PCP - [employer] 12/05/22 Kali Maharaj MD [address] [facility] [address] [place] [address] PCP - General Internal Medicine 04/10/23 Sarah Lozada LSW [facility] 10/30/23 [employer] Worker Relationship Specialty Start Date End Date Kali Maharaj MD [address] [facility] [address] [place] [address] PCP - [employer] 12/05/22 Kali Maharaj MD [address] [facility] [address] [place] [address] PCP - General Internal Medicine 04/10/23 Sarah Lozada LSW [facility] 10/30/23 Goals (unrecognized section and [...] BE BASED ON THE PRIMARY CLINICAL RECORDS. [facility]. provides no warranty or guarantee of the accuracy or completeness of information in this document.
[2024-03-08] MEDS: LISINOPRIL/HYDROCHLOROTHIAZIDE 20-12.5 MG TABLET 1 TAB PO (21:17)
[2024-03-08] MEDS: HYDRALAZINE HCL 25 MG TABLET PO (21:17)
[2024-03-08] MEDS: CALCIUM CARBONATE 600 MG/VITAMIN D3 400 IU TABLET 1 TAB PO (21:17)
[2024-03-08 22:29] LABS: Glucometer 170 mg/dL (74-106)
[2024-03-09] VITALS (12 sets, daily range): BP systolic 127–162; BP diastolic 53–66; PULSE 64–105; TEMP 36.7–37.2; O2SAT 87–95
[2024-03-09 05:22] LABS: Hematocrit 38.2 % (36.0-48.0); Hemoglobin 12.3 g/dL (12.0-16.0); Mean Corpuscular HGB Conc 32.2 g/dL (29.9-35.2); Mean Corpuscular Hemoglobin 29.3 pg (26.7-34.0); Platelet Count 244 10^3/uL (150-450); Red Cell Distribution Width 13.2 % (11.0-15.0); White Blood Count 11.5 10^3/uL (4.0-11.0)
[2024-03-09 05:39] LABS: Anion Gap 12.9; BUN Creatinine Ratio 21.8; Calcium 9.3 mg/dL (8.5-10.1); Carbon Dioxide 26.1 mmol/L (21.0-32.0); Chloride 103 mmol/L (98-107); Estimated GFR (African America 35 (>=60); Estimated GFR (Non-African Ame 29 (>=60); Glucose 116 mg/dL (74-106); Sodium 138 mmol/L (136-145)
[2024-03-09] MEDS: HYDRALAZINE HCL 25 MG TABLET PO ×3 (06:08→21:41)
[2024-03-09] MEDS: LEVOTHYROXINE SODIUM 75 MCG TABLET PO (06:08)
[2024-03-09] MEDS: HYDROCODONE/ACET 10-325 MG TABLET 1 TAB PO (06:10)
--- NOTE | 2024-03-09 07:18 | US_ITS ---
[address] [address] Patient Name: CARLEY QUINTANILLA MRN: [id number] date: 1940 Sex: F Assigned Patient Location: [place] Current Patient Location: [place] Accession/Order Number: [id number] Exam Date: 03/09/2024 09:40 Report Date: 03/09/2024 10:25 At the request of: SHAIKH YAO Procedure: US pelvis EXAMINATION: US pelvis HISTORY: adnexal mass COMPARISON: No relevant comparison available. TECHNIQUE: Transabdominal and/or transvaginal sonographic examination was performed as indicated by examination type. FINDINGS: UTERUS: Normal size and appearance. Uterus size: 7.0 x 2.5 x 1.7 cm ENDOMETRIUM: Normal homogeneous appearance. Endometrial thickness: 3 mm RIGHT OVARY: Within right adnexa is a 7.4 x 6.9 x 6.4 cm anechoic cyst. No ovarian tissue could be identified. LEFT OVARY: Not seen. No suspicious adnexal findings. CUL-DE-SAC: Unremarkable. No significant free fluid. BLADDER: Unremarkable. OTHER: None. US/US pelvis IMPRESSION: 1. Large 7.4 cm cystic structure within right adnexa corresponding to recent CT study. Findings favor a benign cyst, however, this is not expected in a patient of this age. Consider NIGHT GUARD consultation and follow-up ultrasound in 4-6 weeks. 2. No free fluid or findings to suggest torsion. Electronically authenticated by: OMAR SOTELO Date: 03/09/2024 10:25
[2024-03-09] MEDS: MEMANTINE HCL 28 MG CAP XR PO (08:26)
[2024-03-09] MEDS: AMLODIPINE BESYLATE 5 MG TABLET 10 MG PO (08:26)
[2024-03-09] MEDS: PAROXETINE HCL 20 MG TABLET PO (08:26)
[2024-03-09] MEDS: DONEPEZIL HCL 10 MG TABLET 20 MG PO (08:26)
[2024-03-09] MEDS: ASPIRIN 81 MG TAB.CHEW PO (08:26)
[2024-03-09] MEDS: MULTIVITAMIN TABLET 1 TAB PO (08:27)
[2024-03-09] MEDS: CALCIUM CARBONATE 600 MG/VITAMIN D3 400 IU TABLET 1 TAB PO ×2 (08:27→21:41)
[2024-03-09] MEDS: OMEPRAZOLE 20 MG CAPSULE.DR PO (08:27)
[2024-03-09] MEDS: ATORVASTATIN CALCIUM 10 MG TABLET PO (08:27)
[2024-03-09] MEDS: LACTATED RINGER'S SOLUTION 1,000 ML 100 ML IV ×2 (09:08→19:56)
--- NOTE | 2024-03-09 10:48 | CM.NOTE ---
Rounds made with Dr. Orozco, pt will discharge back to [facility] today.
--- NOTE | 2024-03-09 10:53 | PC.NURSE ---
consult called to dr zuñiga. dr zuñiga states to have pt follow up out pt.
--- NOTE | 2024-03-09 11:36 | P.HP_ITS ---
HPI H&P: HPI History of Present Illness Chief complaint: LOWER EXTREMITY PAIN, ACUTE HIP PAIN MASS OF OVARY Narrative: 03/09/24 0915 This is an 83-year-old female patient with a past medical history as outlined below including dementia, hypertension, hyperlipidemia, hypothyroidism, depres chapis, and GERD; who presented to the ED yesterday afternoon from a local assisted living facility complaining of pain to the right lower quadrant radiating to her right hip. Her pain apparently had abrupt onset yesterday afternoon while ambulating at her assisted living facility. Workup in the ED revealed dehydration with mild renal insufficiency (BUN 31, CR 1.27, GFR 48), hypertension (215/71), with all other labs unremarkable. The ED provider was unable to induce pain of the right hip with maneuvers, but could induce pain with palpation. A CT of the abdomen and pelvis was obtained which revealed a large right cystic adnexal mass. Her blood pressure was treated with hydralazine and her pain with Toradol in the ED. As the patient's pain was difficult to control and follow-up pelvic ultrasound was indicated and could not be obtained until the morning, the patient was admitted in observation overnight to the hospitalist service. At the time of my exam the patient is resting in bed. She just vomited up her breakfast but completely denies nausea at this time. Nursing reports the patient does not normally eat breakfast and it is unclear why she experienced nausea and vomiting shortly after breakfast today. She reports that her right lower quadrant pain is mild at this time but it is reproducible with deep palpation to the distal right lower quadrant. I was unable to reproduce pain with hip maneuvers, however Dr. Orozco was able to initiate pain response with hip maneuvers on his exam. A pelvic ultrasound is pending. IV fluids were initiated this morning as the patient's renal insufficiency worsened slightly overnight. The pelvic ultrasound revealed a large 7.4 centimeter cystic mass to the right adnexa that is unusual for the patient's age, and consultation with gynecology was recommended. Dr. Rivas was consulted, and he indicates that he would prefer to follow-up as an outpatient within 4 to 6 weeks as this is cystic mass does not need to be addressed emergently. The patient's pain appears to be adequately controlled with p.o. pain medications. We will repeat a BMP in the early afternoon and if her dehydration/renal insufficiency has improved, she w ill likely be discharged back to her assisted living facility later today. Opioid HPI Opioid Management Most Recent Opioid Data: Last Pain Scale 0 03/09/24 11:10 Last Pain Assessment 03/09/24 11:10 Last ED Pain Assessment 03/08/24 16:56 Last MAR Pain Assessment 03/09/24 06:10 Last ORT Total Score 0 03/08/24 19:47 Last ORT Risk Category Low Risk 03/08/24 19:47 Review of Systems ROS Status of ROS 10 or more systems reviewed and unremark able except as noted in history and below [facility] Medical History (Updated 03/09/24 @ 12:02 by Lynn Sanchez NP) Dementia ?F03.90 - Unspecified dementia, unspecified severity, without behavioral disturbance, psychotic disturbance, mood disturbance, and anxiety (ICD-10) Essential hypertension ?I10 - Essential (primary) hypertension (ICD-10) Social History Highest level of school completed/degree received: some college, no degree Meds Home Medications and Allergies Home Medications ?Medication ?Instructions ?Recorded ?Confirmed ?Type alendronate 70 mg tablet 70 mg PO QWEEK 03/08/24 03/09/24 History amlodipine 10 mg tablet 10 mg PO DAILY 03/08/24 03/08/24 History aspirin 81 mg chewable tablet 1 tab PO DAILY 03/08/24 03/08/24 History calcium carbonate 500 mg-vitamin 1 tab PO BID 03/08/24 03/08/24 History D3 10 mcg (400 unit) tablet (Oyster Shell Calcium-Vitamin D3) donepezil 10 mg tablet 20 mg PO DAILY 03/08/24 03/08/24 History hydralazine 25 mg tablet 25 mg PO TID 03/08/24 03/08/24 History levothyroxine 75 mcg tablet 75 mcg PO DAILY 03/08/24 03/08/24 History lisinopril 20 1 tab PO BID 03/08/24 03/08/24 History mg-hydrochlorothiazide 12.5 mg tablet memantine 10 mg tablet 10 mg PO BID 03/08/24 03/09/24 History lvkqorbn-ytc-wwwjp acid 0.4 1 tab PO DAILY 03/08/24 03/08/24 History mg-lycopene 300 mcg-lutein 250 mcg tablet (CertaVite Senior) pantoprazole 40 mg tablet,delayed 40 mg PO DAILY 03/08/24 03/08/24 History release paroxetine HCl 20 mg tablet 20 mg PO DAILY 03/08/24 03/08/24 History simvastatin 20 mg tablet 20 mg PO DAILY 03/08/24 03/08/24 History Allergies Allergy/AdvReac Type Severity Reaction Status Date / Time chocolate Allergy Mild Verified 03/08/24 19:57 Exam Constitutional Vital Signs, click to edit/add: Last Vital Signs Temp 98.2 F 03/09/24 11:08 Pulse 83 03/09/24 11:08 Resp 16 03/09/24 11:08 BP 157/62 H 03/09/24 11:08 Pulse Ox 92 L 03/09/24 11:08 O2 Del Method Room Air 03/09/24 11:08 Common normals: no apparent distress, alert and well nourished General appearance: cooperative Orientation/consciousness: Yes awake, Yes oriented to person and Yes confused; not oriented to place and not oriented to time HENMT Common normals: normocephalic, head/scalp atraumatic, hearing grossly normal bilaterally, external nose normal and moist oral mucous membranes Eye Common normals: PERRL, EOMs intact bilaterally, conjunctivae normal and no scleral icterus Alignment: alignment normal Eyelid: eyelids normal Neck & C-Spine Common normals: full ROM, supple and no JVD Chest Common normals: inspection of chest normal Chest: symmetrical chest wall rise Respiratory Common normals: normal respiratory effort, no retractions, no use of accessory muscles and clear to auscultation bilaterally Auscultation: diminished lung sounds (BLL) Cardio Common normals: no JVD, regular rate, regular rhythm, S1 normal heart sound, S2 normal heart sound, no gallops, no clicks, no murmurs, no rub and peripheral pulses 2+ throughout GI Common normals: Normal to inspection, nondistended, normoactive bowel sounds present, soft to palpation, no hepatosplenomegaly, no masses and no bruits Palpation: tender (Suprapelvic RLQ); no guarding, not rigid and no rebound tenderness present Bladder/kidney exam: bladder normal to palpation Back & Pelvis Common normals: thoracic and lumbar spine normal to inspection Extremity Common normals: normal capillary refill and no pedal edema General: normal exam except as noted; no clubbing and no cyanosis Neuro Alba Coma Scale: GCS not evaluated Common normals: CN's II-XII intact bilaterally, moves all extremities, no focal motor deficits and no sensory deficits noted Speech: speech normal Motor exam: strength 5/5 throughout Psych Common normals: thought process normal, affect normal and activity/motor behavior normal Judgement: fair Results Labs Labs: Short CBC 03/08/24 03/09/24 Range/Units 17:28 04:59 WBC 11.1 H 11.5 H (4.0-11.0) 10^3/uL Hgb 13.8 12.3 (12.0-16.0) g/dL Hct 41.5 38.2 (36.0-48.0) % Plt Count 243 244 (150-450) 10^3/uL BMP 03/08/24 03/09/24 17:28 04:59 Sodium 139 138 Potassium 4.5 4.0 Chloride 103 103 Carbon Dioxide 26.8 26.1 BUN 31.0 H 37.0 H Creatinine 1.27 H 1.70 H Glucose 125 H 116 H Calcium 9.6 9.3 Liver Function 03/08/24 Range/Units 17:28 Total Bilirubin 0.4 (0.2-1.0) mg/dL AST 28 (15-37) U/L ALT 18 (14-59) U/L Alkaline Phosphatase 79 (46-116) U/L Albumin 3.5 (3.4-5.0) g/dL Pulse Oximetry Attestation: I have reviewed the pertinent pulse oximetry results. Imaging CT scan - abdomen: Attestation: I have reviewed the pertinent imaging results. Radiologist's impression: IMPRESSION: Cystic mass in the right adnexum, likely an ovarian cyst. Further evaluation with pelvic ultrasound should be considered. No additional acute abdominal findings. US - pelvis: Attestation: I have reviewed the pertinent imaging results. Radiologist's impression: IMPRESSION: 1. Large 7.4 cm cystic structure within right adnexa corresponding to recent CT study. Findings favor a benign cyst, however, this is not expected in a patient of this age. Consider SLICE PLUG CUTTER OPERATOR consultation and follow-up ultrasound in 4-6 weeks. 2. No free fluid or findings to suggest torsion. Assessment and Plan Assessment and Plan (1) Adnexal cyst: Assessment and Plan: Acute * Adm observation * Suspected source of the pt's RLQ pain * US pelvis - notes large 7.4 cystic mass of the R adnexa. Findings favor benign cyst, however, this is not expected in a patient of this age. SLICE PLUG CUTTER OPERATOR consultation recommended w/ follow up US in 4-6 weeks * C/S Dr Rivas - Gynecology * Recommends outpatient follow up as this is not an emergent finding * Perham PRN for pain * No vaginal bleeding noted * Plan to d/c pending follow up labs this afternoon - see dehydration (2) Acute hip pain: Assessment and Plan: Acute on Chronic * Unclear if this represents radiation of pelvic pain or exacerbation of chronic osteoarthritic pain * Moderate degenerative changes of the R hip were noted on CT imaging * Perham PRN for pain as above * Consider outpatient follow up with orthopedics if this persists. Qualifiers: Laterality: right Qualified Code(s): M25.551 - Pain in right hip (3) Dehydration: Assessment and Plan: Acute * W/ mild renal insufficiency noted, not yet reaching the threshold of KRISTAN * LR IVF at 100/hr for hydration * Repeat BMP at 1400 * Likely d/c if renal function is improving on repeat labs (4) Dementia: Assessment and Plan: Chronic * Continue home namenda and donepezil (5) Essential hypertension: Assessment and Plan: Chronic * Continue home hydralazine, lisinopril/HCTZ, amlodipine * HTN adequately controlled this morning once pain was controlled (6) Depression: Assessment and Plan: Chronic * Continue home sertraline (7) GERD (gastroesophageal reflux disease): Assessment and Plan: Chronic * Continue home PPI
--- NOTE | 2024-03-09 14:05 | SWNOTE1 ---
MARY met with pt to discuss dc needs. MARY did ask pt if she knew where she was, she stated at the [facility]. SW asked if she knew where she was living prior to coming to hospital, she stated the assisted living. She could not remember name of it. SW let her know ti is [facility]. MARY asked if she was happy at [facility] and she stated it was alright. At this time lab came in to draw blood, SW to stop back.
[2024-03-09 14:28] LABS: Anion Gap 16.2; Calcium 9.5 mg/dL (8.5-10.1); Carbon Dioxide 23.7 mmol/L (21.0-32.0); Chloride 106 mmol/L (98-107); Estimated GFR (African America 34 (>=60); Estimated GFR (Non-African Ame 28 (>=60); Glucose 124 mg/dL (74-106); Potassium 4.9 mmol/L (3.5-5.1); Sodium 141 mmol/L (136-145)
--- NOTE | 2024-03-09 14:39 | SWNOTE1 ---
SW stopped back in to complete assessment with pt. She does know she is at hospital and came from [place]. SW did ask for her birthday and she knew it. SW asked the month, she admitted she was not sure. SW informed her it was March of 2024. She looked at the board and state oh yeah right there is the date. Pt voiced she was happy with the [facility] and her plan is to return. SW asked permission to speak with her niece, Dulce. Pt asked for what reason. SW explained that SW just wants to make sure family is happy with her care as well and t review a medicare paper. Pt in agreement for SW to call niece. SW did review KEARNEY form with pt, she did not have any questions. Pt did sign KEARNEY form. Pt's plan is to return to [place] once she is stable for discharge. SW to follow as needed. MARY called and spoke with pt's niece, Dulce. Dulce voiced she was happy with her aunts care. She has been there for over a year now. Plan is for her to return. Medicare Outpatient Observation Notice reviewed and discussed with patient's. Pt's. verbalized understanding and signed the form. Original was placed in patient's room and copy placed in patient?s chart.
--- NOTE | 2024-03-09 15:43 | SWNOTE1 ---
MARY sent over updates to Miguelina at [facility] to send to [facility] No discharge today.
[2024-03-10 04:49] VITALS: BP 166/52; PULSE 82; TEMP 37.1; O2SAT 91
[2024-03-10] MEDS: LACTATED RINGER'S SOLUTION 1,000 ML 100 ML IV (06:12)
[2024-03-10] MEDS: HYDRALAZINE HCL 25 MG TABLET PO ×2 (06:13→13:47)
[2024-03-10] MEDS: LEVOTHYROXINE SODIUM 75 MCG TABLET PO (06:13)
[2024-03-10 07:40] LABS: Alanine Aminotransferase 9 U/L (14-59); Albumin Globulin Ratio 0.9; Albumin Level 2.7 g/dL (3.4-5.0); Alkaline Phosphatase 61 U/L (46-116); Anion Gap 14.3; Aspartate Amino Transferase 12 U/L (15-37); BUN Creatinine Ratio 25.2; Bilirubin Total 0.3 mg/dL (0.2-1.0); Calcium 9.1 mg/dL (8.5-10.1); Carbon Dioxide 24.7 mmol/L (21.0-32.0); Chloride 106 mmol/L (98-107); Estimated GFR (African America 45 (>=60); Estimated GFR (Non-African Ame 37 (>=60); Globulin 3.1 g/dL; Glucose 94 mg/dL (74-106); Sodium 141 mmol/L (136-145); Total Protein 5.8 g/dL (6.4-8.2)
[2024-03-10 08:25] VITALS: BP 138/65; BP 152/69; PULSE 73; PULSE 75
[2024-03-10 08:26] VITALS: BP 152/69; PULSE 75; TEMP 36.5; O2SAT 94
[2024-03-10] MEDS: CALCIUM CARBONATE 600 MG/VITAMIN D3 400 IU TABLET 1 TAB PO (08:37)
[2024-03-10] MEDS: DONEPEZIL HCL 10 MG TABLET 20 MG PO (08:37)
[2024-03-10] MEDS: ATORVASTATIN CALCIUM 10 MG TABLET PO (08:37)
[2024-03-10] MEDS: PAROXETINE HCL 20 MG TABLET PO (08:37)
[2024-03-10] MEDS: AMLODIPINE BESYLATE 5 MG TABLET 10 MG PO (08:37)
[2024-03-10] MEDS: ASPIRIN 81 MG TAB.CHEW PO (08:37)
[2024-03-10] MEDS: MEMANTINE HCL 28 MG CAP XR PO (08:37)
[2024-03-10] MEDS: MULTIVITAMIN TABLET 1 TAB PO (08:37)
[2024-03-10] MEDS: OMEPRAZOLE 20 MG CAPSULE.DR PO (08:37)
--- NOTE | 2024-03-10 10:22 | REH.PTDLY ---
Physical Therapy Daily Note PT Daily Note/Assess Start: 03/10/24 10:14 Freq: Status: Active Protocol: Document 03/10/24 10:14 RIKA (Rec: 03/10/24 10:21 RIKA [id number]) Physical Therapy Daily Note/Assessment Time In 09:24 Time Out 09:32 Subjective Pt reports pain in R hip/groin comes and goes, will just shoot across unexpectedly. Pt reports she is freezing and wants to go back to bed Therapeutic Exercise Minutes (minutes) 2 Therapeutic Exercise Units 1 Therapeutic Exercise Treatment Seated LAQ with Kael LEs 10x, marching 10x with L LE only due to pain in R Therapeutic Activity Minutes (minutes) 6 Therapeutic Activity Units 1 Bed Mobility Ability Minimum Assist,1 Person Assist Chair Transfer Ability Minimum Assist Therapeutic Activity Comments Sit to stand transfers Min A. Gait training with RW CGA/Min A as pt takes small steps due to pain in R hip. Pt wants to sit after 5 steps, encouraged pt to try to walk to other side of bed for a total of 10 feet. Pt is able to do so with improved step length. Total Therapy Minutes 8 Total Physical Therapy Units 2 Daily Note Summary Pt is limited with exs and gait due to R hip pain today. Needs Min A -CGA for safety.
--- NOTE | 2024-03-10 11:28 | CM.NOTE ---
Rounds made with Dr. Orozco, discussed with pt discharge back to [facility] this afternoon. Will recheck labs this afternoon prior to discharge.
[2024-03-10 13:42] VITALS: BP 166/61; PULSE 82; O2SAT 94
[2024-03-10 13:54] LABS: Anion Gap 12.8; BUN Creatinine Ratio 26.9; Calcium 9.1 mg/dL (8.5-10.1); Carbon Dioxide 24.3 mmol/L (21.0-32.0); Chloride 107 mmol/L (98-107); Estimated GFR (African America 52 (>=60); Estimated GFR (Non-African Ame 43 (>=60); Glucose 89 mg/dL (74-106); Potassium 4.1 mmol/L (3.5-5.1); Sodium 140 mmol/L (136-145)
--- NOTE | 2024-03-10 14:20 | P.DS_ITS ---
<Statement entered by Shaikh Pam MD - 03/10/24 17:00> This documentation has been reviewed and approved. Case discussed with RN, Hospitalist TOP AND TRIM WORKER. Agree with clinical documentation/treatment plan Stable for discharge, follow up with PCP, OBGYN as outpatient. DS: Providers Provider Date of admission: 03/08/24 19:27 Primary care physician: JUAN MAHARAJ Consults: 03/09/24 09:00 Occupational Therapy Eval and Treat Routine Reason for consultation: RLE weakness, pain Has provider been notified: No Physical Therapy Eval and Treat Routine Reason for consultation: RLE weakness, pain Has provider been notified: No 03/09/24 10:49 Consult to OBGYN Routine Consulting Provider: Adin Rivas Reason For Exam: Reason for consultation: Large right adnexal cyst w/ abdominal/R hip pain Discharging clinician: Lynn Sanchez DS: Diagnosis Discharge Diagnosis (1) Adnexal cyst: (2) Acute hip pain: Qualifiers: Laterality: right Qualified Code(s): M25.551 - Pain in right hip (3) Dehydration: (4) Dementia: (5) Essential hypertension: (6) Depression: (7) GERD (gastroesophageal reflux disease): DS: Summary Hospital Course Hospital Course: The patient was admitted with acute right lower quadrant and right hip pain and dehydration. She was treated with IV fluids and her renal function slowly im proved back to her baseline. CT abdomen imaging noted large adnexal mass suspected to cystic in nature. Dr. Rivas was consulted, but he recommended follow-up as an outpatient as this is not an emergent finding. Imaging also noted osteoarthritic changes of the right hip. She was given as needed Kellogg and this controlled her pain adequately. As the patient had returned to her baseline, she is being discharged back to her assisted living facility in stable condition. She was prescribed a short course of as needed Kellogg should her right hip pain persist. She has to follow-up with Dr. Rivas in 4 to 6 weeks regarding her suspected ovarian cyst. We also recommend a follow-up BMP in 1 to 2 weeks to continue to monitor the patient's renal function and dehydration. Time Spent with Patient Time attestation: Total time spent providing and/or coordinating discharge services: Time spent: greater than 30 minutes Specific discharge activities: Physical exam, discussion of discharge plan, questions answered. Exam Constitutional Vital Signs, click to edit/add: Last Vital Signs Temp 97.7 F 03/10/24 08:26 Pulse 82 03/10/24 13:42 Resp 16 03/10/24 08:29 BP 166/61 H 03/10/24 13:42 Pulse Ox 94 L 03/10/24 13:42 O2 Del Method Room Air 03/10/24 13:42 Common normals: no apparent distress, oriented x3 and alert General appearance: cooperative Orientation/consciousness: Yes awake HENMT Common normals: normocephalic and head/scalp atraumatic Eye Common normals: PERRL, EOMs intact bilaterally, conjunctivae normal and no scleral icterus Neck & C-Spine Common normals: no JVD Respiratory Common normals: normal respiratory effort, no use of accessory muscles and clear to auscultation bilaterally Effort & inspection: able to speak in complete sentences and symmetric chest movement Cardio Common normals: no JVD, regular rate, regular rhythm, S1 normal heart sound, S2 normal heart sound and peripheral pulses 2+ throughout Heart sounds: murmur (HSM 2/6) GI Common normals: Normal to inspection, nondistended, normoactive bowel sounds present, soft to palpation and non-tender Bladder/kidney exam: bladder normal to palpation Extremity Common normals: normal to inspection, full ROM, normal capillary refill and no pedal edema General: no clubbing and no cyanosis Neuro Common normals: moves all extremities, no focal motor deficits and no sensory deficits noted Speech: speech normal Psych Common normals: mental status grossly normal and activity/motor behavior normal DS: Data Data Completed and Pending Labs on day of discharge: Labs from last 24 hours 03/10/24 03/10/24 03/09/24 13:02 07:09 13:58 Sodium 140 141 141 Potassium 4.1 4.0 4.9 Chloride 107 106 106 Carbon Dioxide 24.3 24.7 23.7 Anion Gap 12.8 14.3 16.2 BUN 32.0 H 34.0 H 38.0 H Creatinine 1.19 H 1.35 H 1.73 H Est GFR ( Amer) 52 L 45 L 34 L Est GFR (Non-Af Amer) 43 L 37 L 28 L BUN/Creatinine Ratio 26.9 25.2 22.0 Glucose 89 94 124 H Calcium 9.1 9.1 9.5 Total Bilirubin 0.3 AST 12 L ALT 9 L Alkaline Phosphatase 61 Total Protein 5.8 L Albumin 2.7 L Globulin 3.1 Albumin/Globulin Ratio 0.9 Discharge Plan Discharge Disposition: Home, Self-Care Discharge Medications: New hydrocodone-acetaminophen 5-325 mg Tablet 1 tab PO Q6H PRN (Reason: Pain Scale 4-6) Qty: 10 0RF Continued alendronate 70 mg tablet 70 mg PO QWEEK amlodipine 10 mg tablet 10 mg PO DAILY aspirin 81 mg tablet,chewable 1 tab PO DAILY calcium carbonate-vitamin D3 [Oyster Shell Calcium-Vit D3] 500 mg-10 mcg (400 unit) tablet 1 tab PO BID donepezil 10 mg tablet 20 mg PO DAILY hydralazine 25 mg tablet 25 mg PO TID levothyroxine 75 mcg tablet 75 mcg PO DAILY lisinopril-hydrochlorothiazide 20-12.5 mg tablet 1 tab PO BID memantine 10 mg tablet 10 mg PO BID pantoprazole 40 mg tablet,delayed release (DR/EC) 40 mg PO DAILY paroxetine HCl 20 mg tablet 20 mg PO DAILY simvastatin 20 mg tablet 20 mg PO DAILY CertaVite Senior 0.4 mg-300 mcg- 250 mcg tablet 1 tab PO DAILY Activity: increase activity as tolerated Diet: regular diet Print Language: Danish Patient Instructions: Oxycodone/Acetaminophen (By mouth), Ovarian Cyst (DC), Dehydration (DC), Hip Pain (GEN) Activity Restrictions/Additional Instructions: - Follow up with Dr Rivas, Label Fuser Tender, in 4-6 weeks regarding ovarian cyst - Recommend BMP in 1-2 weeks to monitor renal function/dehydration. Consider discontinuing HCTZ Floral Assistant/Controlled Area Checker Instructions: Discharge back to [facility]. Forms: Portal Instructions Follow Up Appointments: Sat. March 13 @ 9:30am with Dr. Maharaj [phone] Amanda. April 14 @ 1:20pm with Dr. Rivas [address] [place] [address] Ibeth Crabtree [phone]
--- NOTE | 2024-03-10 14:21 | SWNOTE1 ---
Pt is discharging back to [facility] today. SW did update packet with pt's dc summary and dc med rec included for pt to take back to [facility].
== END 2024-03-10 15:13 | disposition home or self-care (01) ==
LOC: ER 19:03 → MS 19:31
PROVIDERS: Nurse Practitioner; Registered Nurse; Admitting Provider Internal Medicine; Emergency Provider Emergency Medicine; PCP Internal Medicine; Visit Provider Internal Medicine
DX: M25.551 Pain in right hip (principal); N94.89 Other specified conditions associated with female genital organs and menstrual cycle; E86.0 Dehydration; F03.90 Unspecified dementia, unspecified severity, without behavioral disturbance, psychotic disturbance, mood disturbance, and anxiety; I10 Essential (primary) hypertension; F32.A Depression, unspecified; K21.9 Gastro-esophageal reflux disease without esophagitis; N17.9 Acute kidney failure, unspecified; E78.5 Hyperlipidemia, unspecified; E03.9 Hypothyroidism, unspecified; Z87.891 Personal history of nicotine dependence; Z79.899 Other long term (current) drug therapy
CPT/HCPCS: 36415; 74176; 76856; 80048; 80053; 85025; 85027; 85610; 85730; 93005; 96361; 96374; 96375; 97110; 97161; 97165; 97530; 99285; G0378

== ENCOUNTER 2024-03-14 17:56 | Emergency (ER) | payer MEDICARE, MEDICAID, SELFPAY ==
[2024-03-14 18:01] VITALS: BP 210/70; PULSE 81; TEMP 36.5; O2SAT 99; BMI 26.6
--- OUTSIDE RECORDS SUMMARY | 2024-03-14 18:05 | XMS_ITS | CCD ---
Author Organization [facility] Care Team Providers Care Web Ui Designer Name Role Phone PHYSICIAN, DEFAULT Unavailable Unavailable [...] Admit Provider MD Dee Kenney Attending Provider [phone] JUAN CARLOS Jenkins Other Provider UnavailJUAN CARLOS Silver Other Provider Unavailable MD Jhonatan Oakes Other Provider [phone] DEEPA Robins Other Provider MD Shelby Unger Other Provider MD Sergio Escudero Other Provider [phone] MD Abdulaziz Alvarez Attending Provider [phone] MD Abdulaziz Alvarez Attending Provider [phone] Sergio Escudero Unavailable Unavailable Unavailable Alvarez, Abdulaziz Attending Unavailable Nicko II, Dr. Kali Murdock Primary Care Renee vailable Alvarez, Cintron Referring Unavailable Nicko II, Dr. Kali Murdock Primary Care Renee vailable Alvarez, Cintron Attending Unavailable Alvarez, Abdulaziz Referring Unavailable Kim, Abdulaziz Attending Unavailable Nicko II, Dr. Kali Murdock Primary Care Renee vailable Alvarez, Abdulaziz Attending Unavailable Alvarez, Abdulaziz Attending Unavailable Kim, Abdulaziz Attending Unavailable Raysa Robins Unavailable DYLON Maharaj Primary Care Provider MD Sergio Escudero Attending Provider DYLON Maharaj Primary Care Provider DEEPA Robins Attending Provider Raysa Robins Admitting Unavailable Raysa Robins Attending Unavailable Kali Maharaj Primary Care Unavailable Kali Maharaj Primary Care Unavailable Sergio Escudero Admitting UnavailSergio Estrada Attending UnavailKali Alvares MD Unavailable Kali Maharaj MD Primary Care Provider Neville MATERIAL LOADER, Sarah Unavailable Unavailable Neville MATERIAL LOADER, Sarah Unavailable YULIA MCCRAY Attending Unavailable KALI MAHARAJ Attending Unavailable ISMAEL AQUINO Attending Unavailable YULIA MCCRAY Attending Unavailable KALI MAHARAJ Attending Unavailable PILY YAÑEZ Attending Unavailable Allergies Allergy Classification Reported Allergen(s) Allergy Type Date of Onset Reaction(s) Facility (1 source) Chocolate Drug allergy (disorder) 02-21-2012 [facility] Repository (1 source) Chocolate Drug allergy (disorder) 02-01-2021 [facility] Repository (1 source) Chocolate Drug allergy (disorder) 05-28-2021 [facility] Repository Medications Current Medications Medication Drug Class(es) [...] Levothyroxine Active 75 MCG PO Daily at 30 May 27, 2021 11:00pm take 1 tablet [...] Resolved: 09-21-2022 Episodic Other aftercare (1 source) detention (current) use of aspirin; Translations: [WARE DRESSER CURRENT USE OF ASPIRIN] Onset: 02-09-2021 Episodic Other aftercare (1 source) Other tank terminal gauger (current) drug therapy; Translations: [OTH WARE DRESSER CURRENT DRUG THERAPY] Onset: 02-09-2021 Episodic Other [...] Reference Range Facility US carotid doppler BIon - US carotid doppler BI [facility] [place] [address] Ultrasound Report Signed Patient: Carley Quintanilla MR#: [id number] : 1940 Acct:[id number] Age/Sex: 83 / F ADM Date: 09/26/23 Loc: [facility] Room: Type: [facility] Attending Dr: Raysa Robins SCHOOL PROGRAM DIRECTOR-C Ordering Provider: Raysa Robins APRN Date of Service: 09/26/23 US/US carotid doppler BI: I65.23 Copies to: Rasya Robins APRN CAROTID DUPLEX INDICATION: Carotid surveillance [...] Sergio Escudero MD09/26/2023 1:51 PM Dictation Location: [place] [address] Tech: Olimpia Corea Transcribed By: ADEEL 09/26/23 1351 Dictated By: Sergio Escudero MD 09/26/23 1350 Signed By: 09/26/23 1351 Normal [facility] US carotid doppler BIon 06-1 US carotid doppler BI [facility] [place] [address] Ultrasound Report Signed Patient: Carley Quintanilla MR#: [id number] : 1940 Acct:[id number] Age/Sex: 82 / F ADM Date: 03/20/23 Loc: [facility] Room: Type: [facility] Attending Dr: Sergio Escudero MD Ordering Provider: [...] Jhonatan Oakes M.D.03/22/2023 1:18 PM Dictation Location: [facility] Tech: Marcelle Minor Transcribed By: ADEEL 03/22/231317 Dictated By: Jhonatan Oakes MD 03/22/231316 Signed By: 03/22/231317 [facility] Office Visit (Cardiology)on 09-21-2022 Follow-up visit [...] quit smoking.; Status:Complete - Retrospective Authorization; Done: [id number] You need to stop smoking. Though it is not easy, more than half of all adult smokers have quit. We encourage you to write down all the reasons you should quit smoking and set a quit date for yourself. Ask us how we can help. You may also call 1-446-LQQYNOW for free resources and assistance.; Status:Complete - Retrospective Authorization; Done: [id number] Tobacco Use Screening; Status:Complete; Done: [id number] Patient Instructions Please bring all medicines, vitamins, [...] negative for complaint. Vitals Vital Signs Recorded: 21Sep2022 12:15PM Heart Rate84, R Radial Zxaeydic152, RUE Ealpwomvi10, RUE Height5 ft 6 in Vuvxlb331 lb BMI Powmdfzvai72.05 kg/m2 BSA Calculated1.76 Tobacco Usea) Yes Patient encouraged to stop using tobacco productsYes PHQ-2 Patient Declined/Screening not indicatedYes (more content not included)... Normal [facility] Tobacco Screening.on 022 Fall risk assessment a) No falls within the last year [facility] Feedback DO Work Phone: Tobacco use status CP a) Yes [facility] [employer] [address] DO Work Phone: Tobacco Screening. Yes [facility] [employer] [address] DO Work Phone: No Panel Informationon 09-14 [facility] [address] DO Work Phone: Creatinine and Glomerular fi ltration rate.predicted panel (S/P/Bld)Ordered By: Dee Kenney on 08-12-2022 Creatinine [Mass/Vol] 1.16 mg/dL 0.44-1.03 [facility] Estimated glomerular filtrat ion rate (GFR) non- AmericanOrdered By: Dee Kenney on 08-12-2022 GFR/1.73 sq M.predicted among non-blacks MDRD (S/P/Bld) [Vol rate/Area] 45 mL/Min [facility] No Panel InformationOrdered By: Dee Kenney on 08-12-2022 Estimated GFR () 54 mL/Min [facility] Comment on above: GFR estimated refere nce range: According to KDOQI guidelines, <60 ml/min/1.73m2 is sufficient to diagnose a patient with chronic kidney disease. Pharmacy Creatinine Clearance (Chem 35.61 [facility] Serum or plasma anion gap de terminationOrdered By: Dee Kenney on 08-12-2022 Anion gap [Moles/Vol] 11.3 mmol/L 6.0-15.0 [facility] Serum or plasma calcium azalea urement (mass/volume)Ordered By: Dee Kenney on 08-12-2022 Calcium [Mass/Vol] 8.6 mg/dL 8.2-10.2 [facility] Serum or plasma chloride janet surement (moles/volume)Ordered By: Dee Kenney on 08-12-2022 Chloride [Moles/Vol] 110 mmol/L 95-114 [facility] Serum or plasma glucose azalea urement (mass/volume)Ordered By: Dee Kenney on 08-12-2022 Glucose [Mass/Vol] 95 mg/dL 70-100 [facility] Comment on above: ADA recommended refe rence rangeRandom Glucose Reference Range is dependent on time and content of last meal. Glucose of more than 200 mg/dL in a nonstressed, ambulatory subject supports the diagnosis of Diabetes Mellitus. Serum or plasma potassium me asurement (moles/volume)Ordered By: Dee Kenney on 08-12-2022 Potassium [Moles/Vol] 3.7 mmol/L 3.5-5.1 [facility] Serum or plasma sodium measu rement (moles/volume)Ordered By: Dee Kenney on 08-12-2022 Sodium [Moles/Vol] 141 mmol/L 136-146 [facility] Serum or plasma total carbon dioxide measurement (moles/volume)Ordered By: Dee Kenney on 08-12-2022 CO2 [Moles/Vol] 23.4 mmol/L 22.0-30.0 [facility] Serum or plasma urea nitroge n measurement (mass/volume)Ordered By: Dee Kenney on 08-12-2022 Urea nitrogen [Mass/Vol] 28 mg/dL 9-23 [facility] TSH DL <= 0.005 mIU/L QnOrde red By: Dee Kenney on 08-11-2022 TSH Qn 2.20 m[IU]/L 0.45-5.33 [facility] Basophils Auto (Bld) [#/Vol] Ordered By: Edward Bernstein on 08-10-2022 Basophils (Bld) [#/Vol] 0.1 10*3/uL 0.0-0.2 [facility] Basophils/100 WBC Auto (Bld) Ordered By: Edward Bernstein on 08-10-2022 Basophils/100 WBC (Bld) 0.5 % . [facility] Bilirubin Test strip Ql (U)O rdered By: Edward Bernstein on 08-10-2022 Bilirubin Ql (U) Negative Negative [facility] Body fluid albumin measureme nt (mass/volume)Ordered By: Edward Bernstein on 08-10-2022 Albumin (Body fld) [Mass/Vol] 3.3 g/dL 3.2-5.5 [facility] COVID CepheidOrdered By: Rima Bernstein on 08-10-2022 SARS-CoV-2 (COVID-19) Ab IA Ql Negative Negative [facility] Comment on above: This is a duplicate [employer] Xpert Xpress CoV-2/Flu/RSV Plus RNA by RT-PCR result to be used for statistical tracking purpose only. SARS-CoV-2 (COVID-19) RNA ALLISON+probe Ql (Unsp spec) [facility] Color Auto (U)Ordered By: Harjit Bernstein on 08-10-2022 Color (U) Yellow Yellow [facility] Eosinophils Auto (Bld) [#/Vo l]Ordered By: Edward Bernstein on 08-10-2022 Eosinophils (Bld) [#/Vol] 0.1 10*3/uL 0.0-0.45 [facility] Eosinophils/100 WBC Auto (Bl d)Ordered By: Edward Bernstein on 08-10-2022 Eosinophils/100 WBC (Bld) 0.7 % . [facility] Erythrocyte distribution wid th Auto (RBC) [Ratio]Ordered By: Edward Bernstein on 08-10-2022 Erythrocyte distribution width (RBC) [Ratio] 13.4 % 11.9-15.3 [facility] Globulin Calc (S) [Mass/Vol] Ordered By: Edward Bernstein on 08-10-2022 Globulin (S) [Mass/Vol] 2.7 g/dL [facility] Glucose Glucometer (BldC) [M ass/Vol]Ordered By: Edward Bernstein on 08-10-2022 Glucose [Mass/Vol] 101 mg/dL [facility] Comment on above: Random Glucose Refer ence Range is dependent on time and content of last meal. Glucose of more than 200 mg/dL in a nonstressed, ambulatory subject supports the diagnosis of Diabetes Mellitus. Hematocrit Auto (Bld) [Volum e fraction]Ordered By: Edward Bernstein on 08-10-2022 Hematocrit (Bld) [Volume fraction] 40.9 % 34.0-46.4 [facility] Hemoglobin [Mass/volume] in BloodOrdered By: Edward Bernstein on 08-10-2022 Hemoglobin (Bld) [Mass/Vol] 13.3 g/dL 11.8-15.4 [facility] Ketones Auto test strip (U) [Mass/Vol]Ordered By: Edward Bernstein on 08-10-2022 Ketones (U) [Mass/Vol] Trace Negative [facility] Laboratory - Chemistry and C hemistry - challengeOrdered By: Edward Bernstein on 08-10-2022 Magnesium [Mass/Vol] 2.2 mg/dL 1.6-2.6 [facility] Natriuretic peptide B (Bld) [Mass/Vol] 29.0 pg/mL 5-100 [facility] Laboratory - CoagulationOrde red By: Edward Bernstein on 08-10-2022 PT Coag (PPP) [Time] 11.0 s 9.0-12.9 [facility] Laboratory - Hematology and Cell countsOrdered By: Edward Bernstein on 08-10-2022 Nucleated RBC/100 WBC (Bld) [Ratio] 0.0 % 0-0.5 [facility] Leukocytes [#/volume] in Blo od by Automated countOrdered By: Edward Bernstein on 08-10-2022 WBC (Bld) [#/Vol] 9.9 10*3/uL 4.5-11.0 [facility] Lymphocytes Auto (Bld) [#/Vo l]Ordered By: Edward Bernstein on 08-10-2022 Lymphocytes (Bld) [#/Vol] 0.9 10*3/uL 1.00-4.8 [facility] Lymphocytes/100 WBC Auto (Bl d)Ordered By: Edward Bernstein on 08-10-2022 Lymphocytes/100 WBC (Bld) 9.5 % . [facility] MCH Auto (RBC) [Entitic mass ]Ordered By: Edward Bernstein on 08-10-2022 MCH (RBC) [Entitic mass] 30.6 pg 24.7-34.3 [facility] MCHC Auto (RBC) [Mass/Vol]Or dered By: Edward Bernstein on 08-10-2022 MCHC (RBC) [Mass/Vol] 32.6 g/dL 32.0-35.0 [facility] MCV Auto (RBC) [Entitic vol] Ordered By: Edward Bernstein on 08-10-2022 MCV (RBC) [Entitic vol] 94.0 fL 80-100 [facility] Monocytes Auto (Bld) [#/Vol] Ordered By: Edward Bernstein on 08-10-2022 Monocytes (Bld) [#/Vol] 0.6 10*3/uL 0.0-0.8 [facility] Monocytes/100 WBC Auto (Bld) Ordered By: Edward Bernstein on 08-10-2022 Monocytes/100 WBC (Bld) 5.7 % . [facility] Neutrophils Auto (Bld) [#/Vo l]Ordered By: Edward Bernstein on 08-10-2022 Neutrophils (Bld) [#/Vol] 8.3 10*3/uL 1.8-7.7 [facility] Neutrophils/100 WBC Auto (Bl d)Ordered By: Edward Bernstein on 08-10-2022 Neutrophils/100 WBC (Bld) 83.6 % . [facility] Nitrite Test strip Ql (U)Ord ered By: Edward Bernstein on 08-10-2022 Nitrite Ql (U) Negative Negative [facility] Platelet mean volume Auto (B ld) [Entitic vol]Ordered By: Edward Bernstein on 08-10-2022 Platelet mean volume (Bld) [Entitic vol] 10.2 fL 6.3-10.7 [facility] Platelet poor plasma interna tional normalized ratio (INR) by coagulation assay (relatOrdered By: Edward Bernstein on 08-10-2022 INR Coag (PPP) [Relative time] 1.0 {INR} [facility] Comment on above: INR Therapeutic Rang e [...] 08-10-2022 Platelets (Bld) [#/Vol] 193 10*3/uL 150-450 [facility] Protein Auto test strip (U) [Mass/Vol]Ordered By: Edward Bernstein on 08-10-2022 Protein (U) [Mass/Vol] Negative Negative [facility] Protein [Mass/volume] in Ser um or PlasmaOrdered By: Edward Bernstein on 08-10-2022 Protein [Mass/Vol] 6.0 g/dL 6.1-7.9 [facility] RBC Auto (Bld) [#/Vol]Ordere d By: Edward Bernstein on 08-10-2022 RBC (Bld) [#/Vol] 4.36 10*6/uL 3.60-5.00 [facility] Serum or plasma alanine jensen otransferase measurement without P-5'-P (enzymatic activiOrdered By: Edward Bernstein on 08-10-2022 ALT No additional P-5'-P [Catalytic activity/Vol] 12 U/L 10-60 [facility] Serum or plasma albumin/glob ulin mass ratioOrdered By: Edward Bernstein on 08-10-2022 Albumin/Globulin [Mass ratio] 1.2 {ratio} [facility] Serum or plasma alkaline sondra sphatase measurement (enzymatic activity/volume)Ordered By: Edward Bernstein on 08-10-2022 ALP [Catalytic activity/Vol] 52 U/L 32-92 [facility] Serum or plasma aspartate am inotransferase measurement (enzymatic activity/volume)Ordered By: Edward Bernstein on 08-10-2022 AST [Catalytic activity/Vol] 16 U/L 10-42 [facility] Serum or plasma total biliru bin measurement (mass/volume)Ordered By: Edward Bernstein on 08-10-2022 Bilirubin [Mass/Vol] 0.5 mg/dL 0.3-1.2 [facility] Specific gravity Auto test s trip (U) [Rel density]Ordered By: Edward Bernstein on 08-10-2022 Specific gravity (U) [Rel density] 1.014 1.001-1.03 0 [facility] Troponin I.cardiac [Mass/vol ume] in Serum or Plasma by High sensitivity methodOrdered By: Edward Bernstein on 08-10-2022 Troponin I.cardiac High sensitivity method [Mass/Vol] 9 pg/mL 0-15 [facility] Urine clarity by refractomet ry automatedOrdered By: Edward Bernstein on 08-10-2022 Clarity Refractometry automated (U) Clear Clear [facility] Urine glucose measurement by automated test strip (mass/volume)Ordered By: Edward Bernstein on 08-10-2022 Glucose Auto test strip (U) [Mass/Vol] Normal mg/dL Normal [facility] Urine hemoglobin detection b y automated test stripOrdered By: Edward Bernstein on 08-10-2022 Hemoglobin Auto test strip Ql (U) Negative Negative [facility] Urine leukocyte esterase det ection by automated test stripOrdered By: Edward Bernstein on 08-10-2022 Leukocyte esterase Auto test strip Ql (U) Negative Negative [facility] Urobilinogen Auto test strip (U) [Mass/Vol]Ordered By: Edward Bernstein on 08-10-2022 Urobilinogen (U) [Mass/Vol] Normal mg/dL Normal [facility] pH Auto test strip (U)Ordere d By: Edward Bernstein on 08-10-2022 pH (U) 5.5 [pH] 5.0-9.0 [facility] MRI Brain w/oon 09-20-2021 MRI Brain w/o CLINICAL HISTORY: COMPARISON: [facility]. [...] by MATTHEW TRIPLETT on 09/21/2021 1240 Normal [facility] Chainsaw Mechanic LYME DISEASE, WESTERN BLOTon 08-26-2021 IgG P18 Ab. Absent Normal [facility] Comment on above: Performed By: #### L YMWB #### [facility] [address] [place] [address] Dr. Christian Lebron IgG P23 Ab. Absent Normal [facility] Comment on above: Performed By: #### L YMWB #### [facility] [address] [place] [address] Dr. Christian Lebron IgG P28 Ab. Absent [facility] Comment on above: Performed By: #### L YMWB #### [facility] [address] [place] [address] Dr. Christian Lebron IgG P30 Ab. Absent [facility] Comment on above: Performed By: #### L YMWB #### [facility] [address] [place] [address] Dr. Christian Lebron IgG P39 Ab. Absent Normal [facility] Comment on above: Performed By: #### L YMWB #### [facility] [address] [place] [address] Dr. Christian Lebron IgG P41 Ab. Absent [facility] Comment on above: Performed By: #### L YMWB #### [facility] [address] [place] [address] Dr. Christian Lebron IgG P45 Ab. Absent [facility] Comment on above: Performed By: #### L YMWB #### [facility] [address] [place] [address] Dr. Christian Lebron IgG P58 Ab. Absent Normal [facility] Comment on above: Performed By: #### L YMWB #### [facility] [address] [place] [address] [address] Christian Lebron IgG P66 Ab. Absent Normal [facility] Comment on above: Performed By: #### L YMWB #### [facility] [address] [place] [address] Dr. Christian Lebron IgG P93 Ab. Absent [facility] Comment on above: Performed By: #### L YMWB #### [facility] [address] [place] [address] Dr. Christian Lebron IgM P23 Ab. Absent [facility] Comment on above: Performed By: #### L YMWB #### [facility] [address] [place] [address] Dr. Christian Lebron IgM P39 Ab. Absent [facility] Comment on above: Performed By: #### L YMWB #### [facility] [address] [place] [address] Dr. Christian Lebron IgM P41 Ab. Absent [facility] Comment on above: Performed By: #### L YMWB #### [facility] [address] [place] [address] Dr. Christian Lebron Lyme IgG WB Interp. Negative [facility] Comment on above: Result Comment: Posi tive: 5 of the following Borrelia-specific bands: 18,23,28,30,39,41,45,58, 66, and 93. Negative: No bands or banding patterns which do not meet positive criteria. Performed By: #### L YMWB #### [facility] [address] [place] [address] Dr. Christian Lebron Lyme IgM WB Interp. Negative Normal [facility] Comment on above: Result Comment: Note : [...] are those recommended by CDC/ASTPHLD. p23=Osp C, f74=hnwydssyu . Note: Sera from individuals with the following may cross react in the Lyme Line Blot assays: other spirochetal diseases (periodontal disease, leptospirosis, relapsing fever, yaws, and pinta); connective autoimmune (Rheumatoid Arthritis and Systemic Lupus Erythematosus and also individuals with Antinuclear Antibody); other infections (Campanilla Spotted Fever; Roel-Briones Virus, and Cytomegalovirus). . Performed By: #### L YMWB #### [facility] [address] [place] [address] Dr. Christian Lebron METHYLMALONIC ACID (MMA)on 10-26-2020 Disclaimer: Comment Normal [facility] Comment on above: Result Comment: This test was developed and its performance characteristics determined by [employer]. It has not been cleared or approved by the Food and Drug Administration. Performed By: #### M MA2 #### [facility] [address] [place] [address] Dr. Christian Lebron Methylmalonic Acid, Serum 255 nmol/L Normal 0-378 [facility] Comment on above: Performed By: #### M MA2 #### [facility] [address] [place] [address] Dr. Christian Lebron HOMOCYSTEINEon 08-25-2021 Homocyst(e)ine, Plasma 29.7 umol/L Critically high 0.0-21. 3 [facility] Comment on above: Result Comment: Spec imen quantity insufficient for verification by repeat analysis. Performed By: #### H OMCY #### [facility] [address] [place] [address] Dr. Christian Lebron RPR QUANTon 08-24-2021 Rapid Plasma Reagin, Quant Non-Reactive Normal NonRea<1:1 [facility] Comment on above: Performed By: #### R PRQ #### [facility] [address] [place] [address] Dr. Christian Lebron AMMONIAon 2021 Ammonia (P) [Moles/Vol] 9 umol/L Critically low 10-30 [facility] Comment on above: Performed By: #### M MA2 #### [facility] [address] [place] [address] Dr. Christian Lebron CRPon 2021 CRP [Mass/Vol] mg/L Normal <=1.0 [facility] Comment on above: Performed By: #### M MA2 #### [facility] [address] [place] [address] [address] Christian eLbron FOLATEon 2021 FOLATE 4.50 ng/mL Normal >=2.76 [facility] Comment on above: Performed By: #### F T4, VITB12, FOL #### [facility] [address] [place] [address] Dr. Christian Lebron FREE T4on 2021 Free T4 [Mass/Vol] 0.98 ng/dL Normal 0.78-2.19 [facility] Comment on above: Performed By: #### F T4, VITB12, FOL #### [facility] [address] [place] [address] Dr. Christian Lebron LIVER PROFILEon 2021 Albumin [Mass/Vol] 3.6 g/dL Normal 3.5-5.0 [facility] Comment on above: Performed By: #### Khadar HORNE2 #### [facility] [address] [place] [address] Dr. Christian Lebron Albumin/Globulin [Mass ratio] 1.0 {ratio} Normal [facility] Comment on above: Performed By: #### Khadar HORNE2 #### [facility] [address] [place] [address] Dr. Christian Lebron ALP [Catalytic activity/Vol] 96 U/L Normal 38-126 [facility] Comment on above: Performed By: #### Khadar HORNE2 #### [facility] [address] [place] [address] Dr. Christian Lebron ALT [Catalytic activity/Vol] 14 U/L Normal 9-52 [facility] Comment on above: Performed By: #### Khadar HORNE2 #### [facility] [address] [place] [address] [address] Christian Lebron AST [Catalytic activity/Vol] 17 U/L Normal 14-36 [facility] Comment on above: Performed By: #### M MA2 #### [facility] [address] [place] [address] [address] Christian Lebron BILI, CONJUGATED 0.1 mg/dL Normal 0.0-0.3 [facility] Comment on above: Performed By: #### M MA2 #### [facility] [address] [place] [address] [address] Christian Lebron Bilirubin [Mass/Vol] 0.3 mg/dL Normal 0.2-1.3 [facility] Comment on above: Performed By: #### M MA2 #### [facility] [address] [place] [address] Dr. Christian Lebron Globulin (S) [Mass/Vol] 3.7 g/dL Normal [facility] Comment on above: Performed By: #### M MA2 #### [facility] [address] [place] [address] Dr. Christian Lebron Protein [Mass/Vol] 7.3 g/dL Normal 6.1-8.2 [facility] Comment on above: Performed By: #### M MA2 #### [facility] [address] [place] [address] Dr. Christian Lebron [facility] 31 mm/hr Critically high <=30 [facility] Comment on above: Performed By: #### H OMCY #### [facility] [address] [place] [address] Dr. Christian Lebron TSHon 2021 TSH 3.087 uIU/mL Normal 0.470-4.68 0 [facility] Comment on above: Performed By: #### M MA2 #### [facility] [address] [place] [address] Dr. Christian Lebron TSH RANGE SEE BELOW Normal [facility] Comment on above: Result Comment: <0.3 4 UIU/ml HYPERTHYROID 0.34-5.60 UIU/ml EUTHYROID >5.60 UIU/ml HYPOTHYROID Performed By: #### M MA2 #### [facility] [address] [place] [address] Dr. Christian Lebron VITAMIN B12on 2021 Cobalamin (Vitamin B12) [Mass/Vol] 521.0 pg/mL Normal 239.0-931. 0 [facility] Comment on above: Performed By: #### F T4, VITB12, FOL #### [facility] [address] [place], [place] [id number] Dr. Christian Lebron XR DEXA BONE DENSITYon [...] OMAR SOTELO Date: 2021-07-10 14:50 Normal [facility] CBC AUTO DIFFon 02-02-2021 BASO # 0.1 103/ul Normal 0.0-0.1 [facility] Comment on above: Performed By: #### C BC #### [facility] [address] [place], [place] [id number] Lauri Nascimento Basophils/100 WBC (Bld) 0.4 % Normal 0.2-2.0 [facility] Comment on above: Performed By: #### C BC #### [facility] [address] [place], [place] [id number] Lauri Nascimento EO # 0.1 103/ul Normal 0.0-0.7 [facility] Comment on above: Performed By: #### C BC #### [facility] [address] [place], [place] [address] Lauri Pily Eosinophils/100 WBC (Bld) 0.9 % Normal 0.9-7.0 [facility] Comment on above: Performed By: #### C BC #### [facility] [address] [place] [address] Lauri Pily Erythrocyte distribution width (RBC) [Ratio] 14.2 % Normal 11.0-15.0 [facility] Comment on above: Performed By: #### C BC #### [facility] [address] [place] [address] Lauri Pily Hematocrit (Bld) [Volume fraction] 40.8 % Normal 36.0-48.0 [facility] Comment on above: Performed By: #### C BC #### [facility] [address] [place] [address] Lauri Pily Hemoglobin (Bld) [Mass/Vol] 13.1 g/dL Normal 12.0-16.0 [facility] Comment on above: Performed By: #### C BC #### [facility] [address] [place] [address] Lauri Pily IG # 0.06 10e3/ul Critically high 0.00-0.03 [facility] Comment on above: Performed By: #### C BC #### [facility] [address] [place] [address] Lauri Pily IG % 0.5 % Normal 0.0-0.5 [facility] Comment on above: Performed By: #### C BC #### [facility] [address] [place] [address] Lauri Pily LYMPH # 2.4 103/ul Normal 1.2-3.8 [facility] Comment on above: Performed By: #### C BC #### [facility] [address] [place] [address] Lauri Pily Lymphocytes/100 WBC (Bld) 20.7 % Normal 20.5-60.0 [facility] Comment on above: Performed By: #### C BC #### [facility] [address] [place], [place] [address] Lauri Pily MANUAL DIFF REQ NO Normal [facility] Comment on above: Performed By: #### C BC #### [facility] [address] [place], [place] [address] Lauri Pily MCH (RBC) [Entitic mass] 28.5 pg Normal 26.7-34.0 [facility] Comment on above: Performed By: #### C BC #### [facility] [address] [place] [address] Laurilaura Nascimento MCHC (RBC) [Mass/Vol] 32.1 g/dL Normal 29.9-35.2 [facility] Comment on above: Performed By: #### C BC #### [facility] [address] [place] [address] Lauri Pily MCV (RBC) [Entitic vol] 88.9 fL Normal 81.0-99.0 [facility] Comment on above: Performed By: #### C BC #### [facility] [address] [place], [place] [address] Lauri Pily MONO # 0.9 103/ul Critically high 0.3-0.8 [facility] Comment on above: Performed By: #### C BC #### [facility] [address] [place], [place] [address] Lauri Pily Monocytes/100 WBC (Bld) 7.7 % Normal 1.7-12.0 [facility] Comment on above: Performed By: #### C BC #### [facility] [address] [place] [address] Lauri Pily NEUT # 8.1 103/ul Critically high 1.4-6.5 [facility] Comment on above: Performed By: #### C BC #### [facility] [address] [place], [place] [address] Lauri Pily Neutrophils/100 WBC (Bld) 69.8 % Normal 43.0-75.0 [facility] Comment on above: Performed By: #### C BC #### [facility] [address] [address] Lauri Nascimento Platelet mean volume (Bld) [Entitic vol] 11.9 fL Normal 9.5-13.5 [facility] Comment on above: Performed By: #### C BC #### [facility] [address] [place] [address] Lauri Nascimento PLT 197 103/ul Normal 150-450 [facility] Comment on above: Performed By: #### C BC #### [facility] [address] [place] [address] Lauri Nascimento RBC 4.59 106/ul Normal 4.20-5.40 [facility] Comment on above: Performed By: #### C BC #### [facility] [address] [place] [address] Lauri Nascimento WBC 11.6 103/ul Critically high 4.0-11.0 [facility] Comment on above: Performed By: #### C BC #### [facility] [address] [place] [address] Lauri Nascimento PROF CHEM 8 (BAS METB)on Anion gap [Moles/Vol] 12.7 mmol/L Normal Th [facility] Comment on above: Performed By: #### H OMCY #### [facility] [address] [place] [address] Dr. Christian Lebron Calcium [Mass/Vol] 9.1 mg/dL Normal 8.4-10.2 [facility] Comment on above: Performed By: #### H OMCY #### [facility] [address] [place] [address] Dr. Christian Lebron Chloride [Moles/Vol] 110 mmol/L Critically high 98-107 [facility] Comment on above: Performed By: #### H OMCY #### [facility] [address] [place] [address] Dr. Christian Lebron CO2 [Moles/Vol] 21.7 mmol/L Critically low 22.0-30.0 [facility] Comment on above: Performed By: #### H OMCY #### [facility] [address] [address] [address] Christian Lebron Creatinine [Mass/Vol] 1.25 mg/dL Critically high 0.52-1.04 [facility] Comment on above: Performed By: #### H OMCY #### [facility] [address] [address] [address] Christian Lebron EGFR-AF CROATIAN 50 mL/min/1.73m2 Critically low >=60 [facility] Comment on above: Performed By: #### H OMCY #### [facility] [address] [address] [address] Christian Lebron EGFR-NON AF CROATIAN 41 mL/min/1.73m2 Critically low >=60 [facility] Comment on above: Performed By: #### H OMCY #### [facility] [address] [address] [address] Christian Lebron Glucose [Mass/Vol] 117 mg/dL Critically high 74-106 T [facility] Comment on above: Performed By: #### H OMCY #### [facility] [address] [address] [address] Christian Lebron Potassium [Moles/Vol] 3.4 mmol/L Normal 3.4-5.0 [facility] Comment on above: Performed By: #### H OMCY #### [facility] [address] [address] [address] Christian Lebron Sodium [Moles/Vol] 141 mmol/L Normal 137-145 [facility] Comment on above: Performed By: #### H OMCY #### [facility] [address] [address] [address] Christian Lebron Urea nitrogen [Mass/Vol] 28.0 mg/dL Critically high 7.0-17.0 [facility] Comment on above: Performed By: #### H OMCY #### [facility] [address] [address] [address] Christian Lebron Urea nitrogen/Creatinine [Mass ratio] 22.4 mg/mg Normal [facility] Comment on above: Performed By: #### H OMCY #### [facility] [address] [address] [address] Christian Lebron CBC AUTO DIFFon 02-01-2021 BASO # 0.1 103/ul Normal 0.0-0.1 [facility] Comment on above: Performed By: #### M MA2 #### [facility] [address] [place] [address] Dr. Christian Lebron Basophils/100 WBC (Bld) 0.5 % Normal 0.2-2.0 [facility] Comment on above: Performed By: #### M MA2 #### [facility] [address] [place] [address] Dr. Christian Lebron EO # 0.1 103/ul Normal 0.0-0.7 [facility] Comment on above: Performed By: #### M MA2 #### [facility] [address] [place] [address] Dr. Christian Lebron Eosinophils/100 WBC (Bld) 1.0 % Normal 0.9-7.0 [facility] Comment on above: Performed By: #### M MA2 #### [facility] [address] [place] [address] Dr. Christian Lebron Erythrocyte distribution width (RBC) [Ratio] 13.9 % Normal 11.0-15.0 [facility] Comment on above: Performed By: #### M MA2 #### [facility] [address] [place] [address] Dr. Christian Lebron Hematocrit (Bld) [Volume fraction] 38.7 % Normal 36.0-48.0 [facility] Comment on above: Performed By: #### M MA2 #### [facility] [address] [place] [address] Dr. Christian Lebron Hemoglobin (Bld) [Mass/Vol] 12.3 g/dL Normal 12.0-16.0 [facility] Comment on above: Performed By: #### M MA2 #### [facility] [address] [place] [address] Dr. Christian Lebron IG # 0.04 10e3/ul Critically high 0.00-0.03 [facility] Comment on above: Performed By: #### M MA2 #### [facility] [address] [place] [address] Dr. Christian Lebron IG % 0.4 % Normal 0.0-0.5 [facility] Comment on above: Performed By: #### M MA2 #### [facility] [address] [place] [address] Dr. Christian Lebron LYMPH # 2.0 103/ul Normal 1.2-3.8 [facility] Comment on above: Performed By: #### Khadar MA2 #### [facility] [address] [place] [address] Dr. Christian Lebron Lymphocytes/100 WBC (Bld) 22.0 % Normal 20.5-60.0 [facility] Comment on above: Performed By: #### Khadar MA2 #### [facility] [address] [place] [address] Dr. Christian Lebron MANUAL DIFF REQ NO Normal [facility] Comment on above: Performed By: #### Khadar HORNE2 #### [facility] [address] [place] [address] Dr. Christian Lebron MCH (RBC) [Entitic mass] 29.0 pg Normal 26.7-34.0 [facility] Comment on above: Performed By: #### Khadar MA2 #### [facility] [address] [place] [address] Dr. Christian Lebron MCHC (RBC) [Mass/Vol] 31.8 g/dL Normal 29.9-35.2 [facility] Comment on above: Performed By: #### M MA2 #### [facility] [address] [place] [address] Dr. Christian Lebron MCV (RBC) [Entitic vol] 91.3 fL Normal 81.0-99.0 [facility] Comment on above: Performed By: #### M MA2 #### [facility] [address] [place] [address] Dr. Christian Lebron MONO # 0.8 103/ul Normal 0.3-0.8 [facility] Comment on above: Performed By: #### M OZZIE2 #### [facility] [address] [address] [address] Christian Lebron Monocytes/100 WBC (Bld) 8.7 % Normal 1.7-12.0 [facility] Comment on above: Performed By: #### M MA2 #### [facility] [address] [address] [address] Christian Lebron NEUT # 6.2 103/ul Normal 1.4-6.5 [facility] Comment on above: Performed By: #### M MA2 #### [facility] [address] [address] [address] Christian Lebron Neutrophils/100 WBC (Bld) 67.4 % Normal 43.0-75.0 [facility] Comment on above: Performed By: #### Khadar MA2 #### [facility] [address] [place] [address] Dr. Christian Lebron Platelet mean volume (Bld) [Entitic vol] 11.9 fL Normal 9.5-13.5 [facility] Comment on above: Performed By: #### M MA2 #### [facility] [address] [address] [address] Christian Lebron PLT 175 103/ul Normal 150-450 [facility] Comment on above: Performed By: #### M MA2 #### [facility] [address] [place] [address] Dr. Christian Lebron RBC 4.24 106/ul Normal 4.20-5.40 [facility] Comment on above: Performed By: #### M MA2 #### [facility] [address] [place] [address] Dr. Christian Lebron WBC 9.1 103/ul Normal 4.0-11.0 [facility] Comment on above: Performed By: #### M MA2 #### [facility] [address] [place] [address] HEAD WO CONon [...] by: YAQUELIN ANSARI Date: 2021-01-31 22:45 Normal [facility] ECHO LIMITED STUDYon 021 ECHO LIMITED STUDY Patient: CARLEY QUINTANILLA Exam Date: 02/01/2021 : 1940 Gender:F Ordering : DR. LULU FRIEDMAN . Admission #: [id number] Family : DR KALI MAHARAJ M.D. Order #: [id number] CLICK HERE TO VIEW EXAM ECHOCARDIOGRAM REPORT [...] Area(A4C): 15.60 cm2 Left Atrium Systolic Volume(A2C): 67126 mm3 Left Atrium Systolic Volume(A4C): 05844 mm3 Mitral Valve Right Ventricle Aorta AO Root Diam: 3.10 cm Aortic Valve Tricuspid Valve Pulmonic Valve Right Atrium Dictated by: Max Carbone M.D. on 02/01/2021 at 13:45 Approved by: Max Carbone M.D. on 02/01/2021 at 13:51 Normal [facility] ER URINE PROFILEon 1 Bilirubin Ql (U) Negative Normal NEGATIVE [facility] Comment on above: Performed By: #### E RUR #### [facility] [address] [place] [address] Lauri Nascimento Clarity (U) CLEAR Normal CLEAR [facility] Comment on above: Performed By: #### E RUR #### [facility] [address] [id number] Lauri Pily Color (U) LT. YELLOW Normal YELLOW [facility] Comment on above: Performed By: #### E RUR #### [facility] [address] [place], [place] [address] Lauri Nascimento ERUAHD A micrscopic examina tion will be performed if indicated. Normal [facility] Comment on above: Performed By: #### E RUR #### [facility] [address] [place] [address] Lauri Pily Glucose Ql (U) Negative Normal NEGATIVE [facility] Comment on above: Performed By: #### E RUR #### [facility] [address] [place] [address] Lauri Pily Hemoglobin Ql (U) Negative Normal NEGATIVE [facility] Comment on above: Performed By: #### E RUR #### [facility] [address] [place] [address] Lauri Pily Ketones Ql (U) TRACE Abnormal NEGATIVE [facility] Comment on above: Performed By: #### E RUR #### [facility] [address] [place] [address] Lauri Pily LEUKOCYTES Negative Normal NEGATIVE [facility] Comment on above: Performed By: #### E RUR #### [facility] [address] [place] [address] Lauri Pily Nitrite Ql (U) Negative Normal NEGATIVE [facility] Comment on above: Performed By: #### E RUR #### [facility] [address] [place] [address] Lauri Pily pH (U) 5.0 [pH] Normal 5-9 [facility] Comment on above: Performed By: #### E RUR #### [facility] [address] [place] [address] Lauri Pily SPEC GRAVITY 1.025 Normal 1.005-<=1. 025 [facility] Comment on above: Performed By: #### E RUR #### [facility] [address] [place] [address] Lauri Pily UA PROTEIN TRACE Normal NEGATIVE/ TRACE [facility] Comment on above: Performed By: #### E RUR #### [facility] [address] [place] [address] Lauri Pily UR MICRO IND NOT INDICATED Normal [facility] Comment on above: Performed By: #### E RUR #### [facility] [address] [place] [address] Lauri Pily Urobilinogen Qn (U) 0.2 {Irineo'U}/dL Normal 0.2 - 1. 0 [facility] Comment on above: Performed By: #### E RUR #### [facility] [address] [address] Lauri Nascimento PROF CHEM 8 (BAS METB)on Anion gap [Moles/Vol] 15.6 mmol/L Normal Th [facility] Comment on above: Performed By: #### M MA2 #### [facility] [address] [place] [address] Dr. Christian Lebron Calcium [Mass/Vol] 8.8 mg/dL Normal 8.4-10.2 [facility] Comment on above: Performed By: #### M MA2 #### [facility] [address] [place] [address] Dr. Christian Lebron Chloride [Moles/Vol] 109 mmol/L Critically high 98-107 [facility] Comment on above: Performed By: #### M MA2 #### [facility] [address] [place] [address] Dr. Christian Lebron CO2 [Moles/Vol] 23.1 mmol/L Normal 22.0-30.0 [facility] Comment on above: Performed By: #### M MA2 #### [facility] [address] [place] [address] Dr. Christian Lebron Creatinine [Mass/Vol] 1.49 mg/dL Critically high 0.52-1.04 [facility] Comment on above: Performed By: #### M MA2 #### [facility] [address] [place] [address] Dr. Christian Lebron EGFR-AF CROATIAN 41 mL/min/1.73m2 Critically low >=60 [facility] Comment on above: Performed By: #### M MA2 #### [facility] [address] [address] [address] Christian Lebron EGFR-NON AF CROATIAN 34 mL/min/1.73m2 Critically low >=60 [facility] Comment on above: Performed By: #### M MA2 #### [facility] [address] [address] [address] Christian Lebron Glucose [Mass/Vol] 114 mg/dL Critically high 74-106 T [facility] Comment on above: Performed By: #### M MA2 #### [facility] [address] [address] [address] Chrisitan Lebron Potassium [Moles/Vol] 3.7 mmol/L Normal 3.4-5.0 [facility] Comment on above: Performed By: #### M MA2 #### [facility] [address] [address] [address] Christian Lebron Sodium [Moles/Vol] 144 mmol/L Normal 137-145 [facility] Comment on above: Performed By: #### M MA2 #### [facility] [address] [place] [address] Dr. Christian Lebron Urea nitrogen [Mass/Vol] 28.0 mg/dL Critically high 7.0-17.0 [facility] Comment on above: Performed By: #### M MA2 #### [facility] [address] [address] [address] Christian Lebron Urea nitrogen/Creatinine [Mass ratio] 18.8 mg/mg Normal [facility] Comment on above: Performed By: #### M MA2 #### [facility] [address] [address] [address] Christian Lebron Rapid Covid-19 PCR (CVDRPD)o n 02-01-2021 SARS-CoV-2 (COVID-19) RNA ALLISON+probe Ql (Unsp spec) Not detected Normal NOT DETECTED [facility] Comment on above: Result Comment: This test is not yet approved or cleared by the [place] Food and Drug Administration (FDA). This test was developed by [employer], [place], [place]. The performance characteristics of this test were validated by [facility]. The results are not intended to be used as the sole means for clinical diagnosis or patient management decisions. [facility] is authorized under Clinical Laboratory Improvement Amendments (CLIA) to perform high- complexity testing. When diagnostic testing is negative, the possibility of a false negative should be considered in the context of a patient's recent exposures and the presence of clinical signs and symptoms consistent with SARS-CoV-2. Performed By: #### H OMCY #### [facility] [address] [address] [address] Christian Lebron TROPONIN, HIGH SENSITIVITYon 02-01-2021 HSTROP 15.4 pg/mL Normal 4.0-35.5 [facility] Comment on above: Result Comment: CUT- OFF POINTS HAVE BEEN ESTABLISHED BASED ON THE FOURTH UNIVERSAL DEFINITIONS OF MYOCARDIAL INFARCTION. THE UPPER REFERENCE LIMIT (URL) OF TROPONIN, DEFINED THE 99TH PERCENTILE OF cTnI DISTRIBUTION IN A REFERENCE POPULATION, HAS BEEN CONFIRMED THE DECISION THRESHOLD FOR RI DIAGNOSIS. Performed By: #### H STROPN #### [facility] [address] [address] Lauri Nascimento XR CHEST 2 Von 02-01-2021 [...] by: YAQUELIN ANSARI Date: 2021-01-31 22:40 Normal [facility] XR PELVIS 1_2 VIEWSon 2020 XR PELVIS [...] by: YAQUELIN ANSARI Date: 2021-01-31 22:41 Normal [facility] BNPon 01-31-2021 Natriuretic peptide B (Bld) [Mass/Vol] 1162.0 pg/mL Normal <=1,800.0 [facility] Comment on above: Performed By: #### H OMCY #### [facility] [address] [address] [address] Christian Lebron CBC AUTO DIFFon 01-31-2021 BASO # 0.0 103/ul Normal 0.0-0.1 [facility] Comment on above: Performed By: #### E RUR #### [facility] [address] [address] Lauri Pily Basophils/100 WBC (Bld) 0.4 % Normal 0.2-2.0 [facility] Comment on above: Performed By: #### E RUR #### [facility] [address] [address] Lauri Pily EO # 0.1 103/ul Normal 0.0-0.7 [facility] Comment on above: Performed By: #### E RUR #### [facility] [address] [place] [address] Lauri Pily Eosinophils/100 WBC (Bld) 0.9 % Normal 0.9-7.0 [facility] Comment on above: Performed By: #### E RUR #### [facility] [address] [place] [address] Lauri Pily Erythrocyte distribution width (RBC) [Ratio] 13.8 % Normal 11.0-15.0 [facility] Comment on above: Performed By: #### E RUR #### [facility] [address] [place], [place] [address] Lauri Pily Hematocrit (Bld) [Volume fraction] 42.8 % Normal 36.0-48.0 [facility] Comment on above: Performed By: #### E RUR #### [facility] [address] [place] [address] Lauri Pily Hemoglobin (Bld) [Mass/Vol] 13.8 g/dL Normal 12.0-16.0 [facility] Comment on above: Performed By: #### E RUR #### [facility] [address] [place] [address] Lauri Pily IG # 0.04 10e3/ul Critically high 0.00-0.03 [facility] Comment on above: Performed By: #### E RUR #### [facility] [address] [place], [place] [address] Lauri Pily IG % 0.4 % Normal 0.0-0.5 [facility] Comment on above: Performed By: #### E RUR #### [facility] [address] [place], [place] [address] Lauri Pily LYMPH # 2.3 103/ul Normal 1.2-3.8 [facility] Comment on above: Performed By: #### E RUR #### [facility] [address] [place], [place] [address] Lauri Nascimento Lymphocytes/100 WBC (Bld) 21.7 % Normal 20.5-60.0 [facility] Comment on above: Performed By: #### E RUR #### [facility] [address] [place], [place] [address] Lauri Nascimento MANUAL DIFF REQ NO Normal [facility] Comment on above: Performed By: #### E RUR #### [facility] [address] [place], [place] [address] Laurilaura Nascimento MCH (RBC) [Entitic mass] 28.9 pg Normal 26.7-34.0 [facility] Comment on above: Performed By: #### E RUR #### [facility] [address] [place], [place] [address] Laurilaura Nascimento MCHC (RBC) [Mass/Vol] 32.2 g/dL Normal 29.9-35.2 [facility] Comment on above: Performed By: #### E RUR #### [facility] [address] [place], [place] [address] Laurilaura Nascimento MCV (RBC) [Entitic vol] 89.7 fL Normal 81.0-99.0 [facility] Comment on above: Performed By: #### E RUR #### [facility] [address] [place], [place] [address] Lauri Pily MONO # 0.9 103/ul Critically high 0.3-0.8 [facility] Comment on above: Performed By: #### E RUR #### [facility] [address] [place], [place] [address] Lauri Pily Monocytes/100 WBC (Bld) 8.0 % Normal 1.7-12.0 [facility] Comment on above: Performed By: #### E RUR #### [facility] [address] [place], [place] [address] Lauri Nascimento NEUT # 7.4 103/ul Critically high 1.4-6.5 [facility] Comment on above: Performed By: #### E RUR #### [facility] [address] [place] [address] Lauri Nascimento Neutrophils/100 WBC (Bld) 68.6 % Normal 43.0-75.0 [facility] Comment on above: Performed By: #### E RUR #### [facility] [address] [place] [address] Lauri Nascimento Platelet mean volume (Bld) [Entitic vol] 11.8 fL Normal 9.5-13.5 [facility] Comment on above: Performed By: #### E RUR #### [facility] [address] [place] [address] Lauri Nascimento PLT 190 103/ul Normal 150-450 [facility] Comment on above: Performed By: #### E RUR #### [facility] [address] [place] [address] Lauri Nascimento RBC 4.77 106/ul Normal 4.20-5.40 [facility] Comment on above: Performed By: #### E RUR #### [facility] [address] [place] [address] Lauri Nascimento WBC 10.8 103/ul Normal 4.0-11.0 [facility] Comment on above: Performed By: #### E RUR #### [facility] [address] [place], [place] [address] Lauri Gavinen PROF 14(COMP METB)on 021 Albumin [Mass/Vol] 3.6 g/dL Normal 3.5-5.0 [facility] Comment on above: Performed By: #### H OMCY #### [facility] [address] [place] [address] Dr. Christian Lebron Albumin/Globulin [Mass ratio] 1.0 {ratio} Normal [facility] Comment on above: Performed By: #### H OMCY #### [facility] [address] [place] [address] Dr. Christian Lebron ALP [Catalytic activity/Vol] 74 U/L Normal 38-126 [facility] Comment on above: Performed By: #### H OMCY #### [facility] [address] [place] [address] Dr. Christian Lebron ALT [Catalytic activity/Vol] 19 U/L Normal 9-52 [facility] Comment on above: Performed By: #### H OMCY #### [facility] [address] [place] [address] Dr. Christian Lebron Anion gap [Moles/Vol] 11.7 mmol/L Normal Th [facility] Comment on above: Performed By: #### H OMCY #### [facility] [address] [place] [address] Dr. Christian Lebron AST [Catalytic activity/Vol] 16 U/L Normal 14-36 [facility] Comment on above: Performed By: #### H OMCY #### [facility] [address] [place] [address] Dr. Christian Lebron Bilirubin [Mass/Vol] 0.4 mg/dL Normal 0.2-1.3 [facility] Comment on above: Performed By: #### H OMCY #### [facility] [address] [place] [address] Dr. Christian Lebron Calcium [Mass/Vol] 9.3 mg/dL Normal 8.4-10.2 [facility] Comment on above: Performed By: #### H OMCY #### [facility] [address] [place] [address] Dr. Christian Lebron Chloride [Moles/Vol] 107 mmol/L Normal 98-107 [facility] Comment on above: Performed By: #### H OMCY #### [facility] [address] [place] [address] Dr. Christian Lebron CO2 [Moles/Vol] 26.0 mmol/L Normal 22.0-30.0 [facility] Comment on above: Performed By: #### H OMCY #### [facility] [address] [address] [address] Christian Lebron Creatinine [Mass/Vol] 1.63 mg/dL Critically high 0.52-1.04 [facility] Comment on above: Performed By: #### H OMCY #### [facility] [address] [address] [address] Christian Lebron EGFR-AF CROATIAN 37 mL/min/1.73m2 Critically low >=60 [facility] Comment on above: Performed By: #### H OMCY #### [facility] [address] [address] [address] Christian Lebron EGFR-NON AF CROATIAN 30 mL/min/1.73m2 Critically low >=60 [facility] Comment on above: Performed By: #### H OMCY #### [facility] [address] [address] [address] Christian Lebron Globulin (S) [Mass/Vol] 3.7 g/dL Normal [facility] Comment on above: Performed By: #### H OMCY #### [facility] [address] [place] [address] Dr. Christian Lebron Glucose [Mass/Vol] 96 mg/dL Normal 74-106 [facility] Comment on above: Performed By: #### H OMCY #### [facility] [address] [address] [address] Christian Lebron Potassium [Moles/Vol] 3.7 mmol/L Normal 3.4-5.0 [facility] Comment on above: Performed By: #### H OMCY #### [facility] [address] [address] [address] Christian Lebron Protein [Mass/Vol] 7.3 g/dL Normal 6.1-8.2 [facility] Comment on above: Performed By: #### H OMCY #### [facility] [address] [address] [address] Christian Lebron Sodium [Moles/Vol] 141 mmol/L Normal 137-145 [facility] Comment on above: Performed By: #### H OMCY #### [facility] [address] [address] [address] Christian Lebron Urea nitrogen [Mass/Vol] 31.0 mg/dL Critically high 7.0-17.0 [facility] Comment on above: Performed By: #### H OMCY #### [facility] [address] [place] [address] Dr. Christian Lebron Urea nitrogen/Creatinine [Mass ratio] 19.0 mg/mg Normal [facility] Comment on above: Performed By: #### H OMCY #### [facility] [address] [place] [address] Dr. Christian Lebron PROTIMEon 01-31-2021 INR Coag (PPP) [Relative time] {INR} Normal [facility] Comment on above: Performed By: #### H OMCY #### [facility] [address] [place] [address] Dr. Christian Lebron INR GUIDELINES SEE BELOW Normal [facility] Comment on above: Result Comment: EVER RED INR: 2.0 - 3.0 CONDITIONS NOT LISTED BELOW 2.5 - 3.5 FOR PROSTHETIC HEART VALVE REPLACEMENT 2.5 - 3.5 RECURRENT THROMBOSIS Performed By: #### H OMCY #### [facility] [address] [place] [address] Dr. Christian Lebron PT Coag (PPP) [Time] 10.0 s Normal 9.0-11.6 [facility] Comment on above: Performed By: #### H OMCY #### [facility] [address] [place] [address] Dr. Christian Lebron PTTon 01-31-2021 aPTT Coag (Bld) [Time] 28.2 s Normal 22.3-36.2 [facility] Comment on above: Performed By: #### H OMCY #### [facility] [address] [place] [address] Dr. Christian Lebron TROPONIN, HIGH SENSITIVITYon 01-31-2021 HSTROP 15.5 pg/mL Normal 4.0-35.5 [facility] Comment on above: Result Comment: CUT- OFF POINTS HAVE BEEN ESTABLISHED BASED ON THE FOURTH UNIVERSAL DEFINITIONS OF MYOCARDIAL INFARCTION. THE UPPER REFERENCE LIMIT (URL) OF TROPONIN, DEFINED THE 99TH PERCENTILE OF cTnI DISTRIBUTION IN A REFERENCE POPULATION, HAS BEEN CONFIRMED THE DECISION THRESHOLD FOR RI DIAGNOSIS. Performed By: #### H OMCY #### [facility] [address] [address] [address] Christian Lebron TSHon 01-31-2021 TSH 3.025 uIU/mL Normal 0.470-4.68 0 [facility] Comment on above: Performed By: #### H OMCY #### [facility] [address] [address] [address] Christian Lebron TSH RANGE SEE BELOW Normal [facility] Comment on above: Result Comment: <0.3 4 UIU/ml HYPERTHYROID 0.34-5.60 UIU/ml EUTHYROID >5.60 UIU/ml HYPOTHYROID Performed By: #### H OMCY #### [facility] [address] [address] [address] Christian Lebron Vital Signs Date Time Vital Sign Value Performing Clinician Facility 11-14-2023 17:04-0500 Body height 162.6 cm Ismael Aquino DPM Work Phone: [facility] 11-14-2023 17:04-0500 Body mass index (BMI) [Ratio] 29.52 kg/m2 Ismael Aquino DPM Work Phone: [facility] 11-14-2023 17:04-0500 Body weight 78.02 kg Ismael Aquino DPM Work Phone: [facility] 11-14-2023 17:04-0500 Diastolic blood pressure 80 mm[Hg] Ismael Aquino DPM Work Phone: [facility] 11-14-2023 17:04-0500 Heart rate 77 /min Ismael Aquino DPM Work Phone: [facility] 11-14-2023 17:04-0500 Systolic blood pressure 123 mm[Hg] Ismael Aquino DPM Work Phone: [facility] 09-26-2023 12:00-0500 Body height 167.64 cm Sergio Escudero Other [employer] Other 09-26-2023 12:00-0500 Body mass index (BMI) [Ratio] 25.01 kg/m2 Sergio Escudero Other [employer] Other 09-26-2023 12:00-0500 Body temperature 96.1 [degF] Sergio Escudero Other [employer] Other 09-26-2023 12:00-0500 Body weight 70.31 kg Sergio Escudero Other [employer] Other 09-26-2023 12:00-0500 Diastolic blood pressure 62 mm[Hg] Sergio Escudero Other [employer] Other 09-26-2023 12:00-0500 SaO2% (BldA) [Mass fraction] 99 % Sergio Escudero Other [employer] Other 09-26-2023 12:00-0500 Systolic blood pressure 120 mm[Hg] Sergio Escudero Other [employer] Other 03-20-2023 11:30-0400 Body height 167.64 cm Raysa Robins Other [employer] Other 03-20-2023 11:30-0400 Body mass index (BMI) [Ratio] 25.01 kg/m2 Raysa Robins Other [employer] Other 03-20-2023 11:30-0400 Body temperature 97.8 [degF] Raysa Robnis Other [facility] [employer] Other 03-20-2023 11:30-0400 Body weight 70.31 kg Raysa Robins Other [employer] Other 03-20-2023 11:30-0400 Diastolic blood pressure 86 mm[Hg] Raysa Robins Other [employer] Other 03-20-2023 11:30-0400 SaO2% (BldA) [Mass fraction] 99 % Raysa Robins Other [facility] [employer] Other 03-20-2023 11:30-0400 Systolic blood pressure 122 mm[Hg] Raysa Robins Other [facility] [employer] Other 09-21-2022 12:15-0500 Body height 167.64 cm Abdulaziz Alvarez MD Work Phone: [facility] 250 DO Work Phone: 09-21-2022 12:15-0500 Body mass index (BMI) [Ratio] 24.05 kg/m2 Abdulaziz Alvarez MD Work Phone: [facility] 250 DO Work Phone: 09-21-2022 12:15-0500 Body surface area Derived from formula 1.76 m2 Abdulaziz Alvarez MD Work Phone: [facility] 250 DO Work Phone: 09-21-2022 12:15-0500 Body weight 67.59 kg Abdulaziz Alvarez MD Work Phone: [facility] 250 DO Work Phone: 09-21-2022 12:15-0500 Diastolic blood pressure 78 mm[Hg] Abdulaziz Alvarez MD Work Phone: [facility] 250 DO Work Phone: 09-21-2022 12:15-0500 Heart rate 84 /min Abdulaziz Alvarez MD Work Phone: [facility] 250 DO Work Phone: 09-21-2022 12:15-0500 Systolic blood pressure 126 mm[Hg] Abdulaziz Alvarez MD Work Phone: [facility] 250 DO Work Phone: 09-12-2022 11:45-0500 Body height 167.64 cm Sergio Escudero Other [employer] Other 09-12-2022 11:45-0500 Body mass index (BMI) [Ratio] 27.44 kg/m2 Sergio Escudero Other [employer] Other 09-12-2022 11:45-0500 Body temperature 97.8 [degF] Sergio Escudero Other [employer] Other 09-12-2022 11:45-0500 Body weight 77.11 kg Sergio Escudero Other [employer] Other 09-12-2022 11:45-0500 Diastolic blood pressure 68 mm[Hg] Sergio Escudero Other [employer] Other 09-12-2022 11:45-0500 SaO2% (BldA) [Mass fraction] 98 % Sergio Escudero Other [employer] Other 09-12-2022 11:45-0500 Systolic blood pressure 116 mm[Hg] Sergio Escudero Other [employer] Other 08-14-2022 12:47-0500 Diastolic blood pressure 71 mm[Hg] DO Edward Bernstein Work Phone: [facility] 08-14-2022 12:47-0500 Systolic blood pressure 177 mm[Hg] DO Edward Bernstein Work Phone: [facility] 08-14-2022 12:00-0500 Body temperature 98.3 [degF] DO Edward Bernstein Work Phone: [facility] 08-14-2022 12:00-0500 Heart rate 79 /min DO Ewdard Bernstein Work Phone: [facility] 08-14-2022 12:00-0500 Respiratory rate 16 /min DO Edward Bernstein Work Phone: [facility] 08-14-2022 12:00-0500 SaO2% (BldA) [Mass fraction] 98 % DO Edward Bernstein Work Phone: [facility] 08-14-2022 04:50-0500 Body weight 66.6 kg DO Edward Bernstein Work Phone: [facility] 08-13-2022 20:45-0500 Body temperature 97.8 [degF] DO Edward Bernstein Work Phone: [facility] 08-13-2022 20:45-0500 Diastolic blood pressure 68 mm[Hg] DO Edward Bernstein Work Phone: [facility] 08-13-2022 20:45-0500 Heart rate 80 /min DO Edward Bernstein Work Phone: [facility] 08-13-2022 20:45-0500 Respiratory rate 20 /min DO Edward Bernstein Work Phone: [facility] 08-13-2022 20:45-0500 SaO2% (BldA) [Mass fraction] 99 % DO Edward Bernstein Work Phone: [facility] 08-13-2022 20:45-0500 Systolic blood pressure 188 mm[Hg] DO Edward Bernstein Work Phone: [facility] 08-13-2022 11:50-0500 Body height 167.64 cm DO Edward Bernstein Work Phone: [facility] 08-13-2022 06:00-0500 Body weight 68.8 kg DO Edward Bernstein Work Phone: [facility] Encounters Encounter Date Encounter Type Care Provider Facility Start: 03-13-2024 End: 03-13-2024 ambulatory PILY YAÑEZ Not Available Start: 01-29-2024 End: 01-29-2024 ambulatory KALI MAHARAJ Not Available Start: 01-21-2024 End: 01-21-2024 ambulatory YULIA MCCRAY Not Available Start: 11-14-2023 End: 11-14-2023 ambulatory ISMAEL AQUINO Not Available Start: 11-14-2023 End: 11-14-2023 Patient encounter procedure Ismael Aquino DPM Work Phone: [facility] Comment on above: PVD (peripheral vasc ular disease) (CMS/[facility]) (Primary Dx); Onychomycosis; Toe pain, left; [...] outpatient vi sit 15 minutes Sergio Escudero [facility] Vascular Surgery Start: 09-26-2023 End: 09-26-2023 ambulatory Raysa Robins Facility:[facility] Start: 09-26-2023 End: 09-26-2023 ambulatory II Kali Maharaj Work Phone: [facility] [employer] Other Start: 09-26-2023 End: 09-26-2023 Patient encounter procedure II Kali Maharaj Work Phone: [facility] Start: 03-20-2023 End: 03-20-2023 Patient encounter procedure Raysa Robins [facility] Vascular Surgery Start: 03-20-2023 End: 03-20-2023 ambulatory II Kali Maharaj Work Phone: [facility] [employer] Other Start: 03-13-2023 ambulatory Abdulaziz Alvarez Facility : Start: 11-10-2022 Chart Update Abdulaziz Alvarez MD Work Phone: [facility] 250 DO Work Phone: Start: 10-30-2022 Telephone encounter Abdulaziz day MD Work Phone: [facility] 600 DO Work Phone: Start: 10-22-2022 Patient encounter procedure Abdulaziz Alvarez MD Work Phone: [facility] 250 DO Work Phone: Start: 09-21-2022 ambulatory Abdulaziz Alvarez Facility : Start: 09-21-2022 Office outpatient vi sit 25 minutes Abdulaziz Alvarez MD Work Phone: [facility] 250 DO Work Phone: Start: 09-18-2022 Chart Update Abdulaziz Alvarez MD Work Phone: [facility] 250 DO Work Phone: Start: 09-14-[address] Kali Maharaj II Facility:90 Start: 09-12-2022 End: 09-12-2022 ambulatory Sergio Escudero Other [facility] [employer] Other Start: 09-12-2022 Office outpatient vi sit 15 minutes Sergio Escudero [facility] Vascular Surgery Start: 08-14-2022 ambulatory Cintron Alvarez Facility :[id number] Start: 08-14-2022 Patient encounter procedure DO Edward Bernstein Work Phone: [facility]ro[facility] Start: 08-13-2022 End: 08-13-2022 ambulatory DO Edward Bernstein Work Phone: [facility] Work Phone: Start: 08-13-2022 End: 08-13-2022 Patient encounter procedure DO Edward Bernstein Work Phone: [facility] Start: 08-12-2022 ambulatory Cintron Alvarez Facility :[id number] Start: 08-11-2022 ambulatory Cintron Alvarez Facility :[id number] Start: 08-10-2022 ambulatory Cintron Alvarez Facility :[id number] Start: 08-10-2022 End: 08-14-2022 Evaluation and management of inpatient DO Edward Bernstein Work Phone: [facility] Start: 12-26-2021 End: 12-26-2021 ambulatory Jhonatan Oakes Other [facility] [employer] Other Start: 12-26-2021 Telephone encounter Jhonatan Oakes [facility] Vascular Surgery Start: 2021 End: 08-24-2021 ambulatory YULIA MCCRAY Facility:[facility]1 Start: 07-10-2021 End: 07-11-[address] KLAI MAHARAJ Facility:[facility]1 Start: 07-03-[address] KALI MAHARAJ Facilit y:H1 Start: 02-08-2021 End: 03-08-[address] KALI MAHARAJ Facility:[facility]1 Start: 02-01-2021 End: 02-02-2021 ambulatory LULU FRIEDMAN Facility:[facility]1 Start: 01-31-2021 End: 02-01-2021 ambulatory UNKNOWN PROVIDER Facility:[facility] Start: 12-05-[address] MAX CARBONE Fac ility:[facility]1 Start: 09-04-2018 End: 09-05-2018 Patient encounter procedure DEFAULT PHYSICIAN Facility:[facility] Procedures Date Procedure Procedure Detail Performing [...] Visit [facility] [address] [facility] [address] [place] [id number] Kali Maharaj MD [address] [place] [address] [facility] Start: 01-23-2024 End: 01-23-2024 Patient encounter procedure 01/23/2024 4:10 PM EDT Procedure Visit [facility] [address] [address] [place] [address] Ismael Aquino DPM [address] [facility] [address] [place] [address] [facility] Start: 12-10-2023 End: 12-10-2023 Patient encounter procedure 12/10/2023 2:00 PM EST Office Visit [facility] [address] [place] [address] Yulia Mccray MD [address] [facility] [address] [id number] [facility] Start: 11-21-2023 Medicare Annual Wellness (AWV) Medicare Annual Wellness (AWV) [facility] Start: 11-14-2023 End: 11-14-2023 Patient encounter procedure 11/14/2023 4:50 PM EST Procedure Visit [facility] [address] [facility] [address] [place] [id number] Ismael Aquino, DPM [address] [address] [facility] Start: 11-11-2023 End: 11-11-2023 Patient encounter procedure 11/11/2023 1:50 PM EST Procedure Visit [facility] [address] [place] [address] Ismael Aquino DPM [address] [address] [facility] Start: 03-20-2023 Doppler ultrasonography of bilateral carotid arteries US carotid doppler BI [facility] Start: 03-20-2023 US.doppler Carotid arteries - bilateral [facility] Start: 03-13-2023 FUV, Provider: Abdulaziz Alvarez, Status: Pen, Time: 11:50 AM FUV, Provider: Abdulaziz Alvarez, Status: Pen, Time: 11:50 AM [facility] 250 DO Work Phone: Start: 09-21-2022 FUV, Provider: Abdulaziz lAvarez, Status: Pen, Time: 11:50 AM FUV, Provider: Abdulaziz Alvarez, Status: Pen, Time: 11:50 AM [facility] 250 DO Work Phone: Start: 08-14-2022 [facility] Start: 08-13-2022 [facility] Start: 08-12-2022 Referral to vascular surgeon [facility] Start: 08-10-2022 Hospital admission [facility] Start: 08-10-2022 [facility] Patient Education Carotid Artery Disease Carotid Artery Disease (DC) [facility] Work Phone: Patient referral [facility] Work Phone: Immunizations Immunization Date Immunization Notes Care Provider [facility] 08-12-2023 Influenza, High-dose Seasonal, Quadrivalent, Preservative Free Ismael Aquino DPM Work Phone: [facility] 09-21-2022 Moderna SARS-CoV-2 Booster Vaccination Ismael Aquino DPM Work Phone: [facility] 07-27-2022 Fluzone High-Dose Quadrivalent 0.7 ML Intramuscular Suspension Prefilled Syringe Abdulaziz Alvarez MD Work Phone: [facility] 05-08-2022 Moderna COVID-19 Vac cine 100 MCG/0.5ML Intramuscular Suspension Abdulaziz Alvarez MD Work Phone: [facility] 250 DO Work Phone: 08-07-2021 influenza, high dose seasonal, preservative-free Abdulaziz Alvarez MD Work Phone: [facility] 250 DO Work Phone: 08-04-2021 Moderna COVID-19 Vac cine 100 MCG/0.5ML Intramuscular Suspension Abdulaziz Alvarez MD Work Phone: [facility] 250 DO Work Phone: 11-23-2020 Moderna COVID-19 Vac cine 100 MCG/0.5ML Intramuscular Suspension Abdulaziz Alvarez MD Work Phone: [facility] 250 DO Work Phone: 10-21-2020 Moderna COVID-19 Vac cine 100 MCG/0.5ML Intramuscular Suspension Abdulaziz Alvarez MD Work Phone: [facility] 250 DO Work Phone: 07-05-2020 zoster vaccine recombinant Abudlaziz Alvarez MD Work Phone: [facility] 07-01-2020 influenza, high dose seasonal, preservative-free Abdulaziz Alvarez MD Work Phone: [facility] 250 DO Work Phone: 07-01-2020 Influenza, High-dose Seasonal, Quadrivalent, Preservative Free Ismael Aquino DPM Work Phone: [facility] 06-22-2019 Seasonal trivalent influenza vaccine, adjuvanted, preservative free Abdulaziz Alvarez MD Work Phone: [facility] 07-21-2018 influenza, high dose seasonal, preservative-free Abdulaziz Alvarez MD Work Phone: [facility] 250 DO Work Phone: 06-06-2018 influenza, high dose seasonal, preservative-free Abdulaziz Alvarez MD Work Phone: [facility] 06-18-2017 influenza, high dose seasonal, preservative-free Abdulaziz Alvarez MD Work Phone: [facility] 06-18-2017 pneumococcal polysaccharide vaccine, 23 valent Abdulaziz Alvarez MD Work Phone: [facility] 07-13-2016 influenza, high dose seasonal, preservative-free Abdulaziz Alvraez MD Work Phone: [facility] 07-23-2015 pneumococcal conjuga te vaccine, 13 valent Abdulaziz Alvarez MD Work Phone: [facility] 07-07-2015 influenza, injectabl e, quadrivalent, preservative free Ismael Aquino DPM Work Phone: [facility] 07-03-2013 influenza, seasonal, injectable, preservative free Ismael Aquino DPM Work Phone: [facility] 10-07-2010 pneumococcal polysaccharide vaccine, 23 valent Ismael Aquino DPM Work Phone: [facility] 07-20-2010 seasonal influenza, intradermal, preservative free Ismael Aquino DPM Work Phone: [facility] Healthcare Payers Date Payer Category Payer Medicaid [id number] 2017 Medicare [employer] MEDICARE ADVANTAGE [employer] MEDICARE [id number] 2017-Present [address] [address] [place] [address] [id number] 1959 Private Health Insurance [id number] 1959 Self-pay 1940 Unknown [id number] 2.16.840.1.312402.3.579.2. 647 1940 Unknown [id number] 2.16.840.1.000907.3.579.2. 732 1940 Unknown [id number] 2.16.840.1.847082.3.579.2. 593 1940 Unknown [id number] 2.16.840.1.067104.3.579.2. 593 1940 Unknown [id number] 2.16.840.1.675599.3.579.2. 593 1940 Unknown [id number] 2.16.840.1.463196.3.579.2. 593 1940 Unknown [id number] 2.16.840.1.551218.3.579.2. 593 1940 Unknown [id number] 2.16.840.1.410819.3.579.2. 593 1940 Unknown [id number] 2.16.840.1.120325.3.579.2. 593 1940 Unknown [id number] 2.16.840.1.612842.3.579.2. 356 1940 Unknown [id number] 2.16.840.1.286337.3.579.2. 356 1940 Unknown [id number] 2.16.840.1.739316.3.579.2. 356 1940 Unknown [id number] 2.16.840.1.039476.3.579.2. 356 1940 Unknown [id number] 2.16.840.1.660871.3.579.2. 356 1940 Unknown [id number] 2.16.840.1.426938.3.579.2. 356 1940 Unknown [id number] 2.16.840.1.727484.3.579.2. 356 1940 Unknown [id number] 2.16.840.1.865101.3.579.2. 356 1940 Unknown [id number] 2.16.840.1.279580.3.579.2. 1259 1940 Unknown [id number] 2.16.840.1.194560.3.579.2. 1259 1940 Unknown [id number] 2.16.840.1.417567.3.579.2. 1259 1940 Unknown [id number] 2.16.840.1.309253.3.579.2. 1259 1940 Unknown [id number] 2.16.840.1.370822.3.579.2. 1259 1940 Unknown [id number] 2.16.840.1.264214.3.579.2. 1259 Medicare Medicare [id number] Unknown Unknown Insurance No Card [id number] Unknown [id number] 2.16.840.1.486144.3.579.2. 531 Unknown [id number] 2.16.840.1.226132.3.579.2. 531 Social History Date Type Detail Facility Start: 04-10-2023 End: 10-16-2023 Sex Assigned At [facility] [employer] Other Start: 08-13-2022 End: 08-13-2022 Tobacco smoking status NHIS Smoker (finding) [facility] Start: 1940 Sex Assigned At Female F [facility] Start: 04-10-2023 End: 10-16-2023 Consumes alcohol occasionally Consumes alcohol occasionally [facility] 250 DO Work Phone: Comment on above: coffee 1 cup daily; 1 pack per week; Start: 10-07-1987 [facility] Start: 10-07-1987 [...] Facility 08-14-2022 Functional status Patient at Baseline [facility] Work Phone: 08-10-2022 Functional status Patient at Baseline [facility] Work Phone: Mental Status Date Assessment Result Facility 08-14-2022 Cognitive function Cognitive Sta tus Patient at Baseline [facility] Work Phone: 08-10-2022 Cognitive function Cognitive Sta tus Patient at Baseline [facility] Work Phone: Clinical Notes 08-10-2022 [...] pulmonary disease) (CMS/HCC) Coronary artery stenosis (CMS/HCC) 2016 Dr. Suraj Serrano Diastolic heart failure (CMS/HCC) [...] Ismael Aquino DPM documented in this encounter [facility] 09-26-2023 Evaluation note Encounter Date Diagnosis Assessment Notes Sep, Asymptomatic stenosis of right carotid artery (ICD-10 - I65.21) I recommend seeing this patient back in 1 year. I admonished her for smoking and offered her free resources to quit by the [facility]. She refused. There is no indication for any surgical intervention at this time. [employer] Other 06-14-2023 Evaluation note* Encounter Date Diagnosis [...] issues prior to her next scheduled appointment. [employer] Other 12-07-2022 Evaluation note* Encounter Date Diagnosis [...] for results in the next few weeks. [employer] Other 11-08-2022 Discharge summary Author Dee Kenney [facility] August 14, 2022 1:38pm Note Date/Time August 14, 2022 1 :13pm [facility] [address] [place] [address] Discharge Summary Signed Patient: Carley Quintanilla MR#: [id number] : 1940 Acct:[id number] Age/Sex: 81 / F Adm Date: 2 Loc: Room: [address] [place] [address]: Dee Kenney MD Copies to: [...] Regular Additional Instructions: You should have a [employer] 30 Day Information Officer prior to discharge. Instructions: Carotid Artery Disease, [...] Thankyou.) Documented By: Dee Kenney MD 08/14/22 130 Signed By: <Electronically signed by Dee Kenney MD> 08/14/22 8254 [facility] Work Phone: 1(411) 867-327511-08-2022 Progress note Author Sergio Escudero [facility] November 8th, 2022 11:52am Note Date/Time August 14, 2022 1 0:02am [facility] [address] [place] [address] Vascular Surgery Progress Note Signed with Shashi Patient: Carley Quintanilla MR#: [id number] : 1940 Acct:[id number] Age/Sex: 81 / F Adm Date: 2 Loc: 4N Room: [address] [place] [address] Type: ADM IN Attending Dr: Dee Kenney [...] out. Addendum Documented By: Sergio Escudero MD 08/14/221151 Addendum Signed By: <Electronically signed by Sergio [...] Sergio Escudero MD> 08/14/22 1002 [facility] Work Phone: 1(562) 922-610611-07-2022 Progress note Author Dee Kenney [facility] August 13, 2022 12:59pm Note Date/Time August 13, 2022 1 2:44pm [facility] [address] [place] [address] Hospitalist Progress Note Signed Patient: Carley Quintanilla MR#: [id number] : 1940 Acct:[id number] Age/Sex: 81 / F Adm Date: 2 Loc: Room: [address] [place] [address] Type: ADM IN Attending Dr: Dee Kenney [...] <Electronically signed by Dee Kenney MD> 08/13/22 1255 [facility] Work Phone: 1(353) 114-979711-07-2022 Progress note Author Abdulaziz Alvarez [facility] August 13, 2022 11:03am Note Date/Time August 13, 2022 1 1:03am [facility] [address] [place], [place] [id number] Cardiology Progress Note Signed Patient: Carley Quintanilla MR#: [id number] : 1940 Acct:[id number] Age/Sex: 81 / F Adm Date: 2 Loc: 4N Room: [address] [place] [address] Type: ADM IN Attending Dr: Dee Kenney [...] cessation education Documented By: Abdulaziz Alvarez MD, [facility] 2 1100 Signed By: <Electronically signed by [facility]> 08/13/22 1103 [facility] Work Phone: 1(636) 937-300711-07-2022 Consult note Author Sergio Escudero [facility] August 13, 2022 9:29am Note Date/Time August 13, 2022 8 :53am [facility] [address] [place] [address] Vascular Surgery Consult Note Signed Patient: Carley Quintanilla MR#: [id number] : 1940 Acct:[id number] Age/Sex: 81 / F Adm Date: 2 Loc: Room: [address] [place] [address] Type: ADM IN Attending Dr: Dee Kenney MD Copies to: Kali Maharaj II, MD Raysa R PARK Robins MD Mazhar Rahman, MD~ HPI Consult HPI [...] <Electronically signed by Sergio Escudero MD> 08/13/22 0917 [facility] Work Phone: 1(809) 807-189911-06-2022 Progress note Author Dee Kenney [facility] August 12, 2022 4:23pm Note Date/Time August 12, 2022 4 :18pm [facility] [address] [place] [address] Hospitalist Progress Note Signed Patient: Carley Quintanilla MR#: [id number] : 1940 Acct:[id number] Age/Sex: 81 / F Adm Date: 2 Loc: 4N Room: [address] [place] [address] Type: ADM IN Attending Dr: Dee Kenney [...] 08/11/22 09:00 08/12/22 09:09 Aspirin 81 Mg Tablet.Dr PO 08/11/23 08:59 [...] 1,000 Ml IV 08/10/23 20:29 75 mls/hr .[id number] CARRI Administration Levothyroxine Sodium 75 mcg 08/11/22 [...] Dee Kenney MD> 08/12/22 1623 [facility] Work Phone: 1(291) 978-178011-06-2022 Progress note Author Abdulaziz Alvarez [facility] August 12, 2022 10:01am Note Date/Time August 12, 2022 1 0:01am [facility] [address] [place] [address] Cardiology Progress Note Signed Patient: Carley Quintanilla MR#: [id number] : 1940 Acct:[id number] Age/Sex: 81 / F Adm Date: 2 Loc: Room: [address] [place] [address] Type: ADM IN Attending Dr: Dee Kenney [...] cessation education Documented By: Abdulaziz Alvarez MD, [facility] 2 0958 Signed By: <Electronically signed by [facility] Abdulaziz Alvarez> 08/12/22 [facility]1 [facility] Work Phone: 1(387) 159-533111-05-2022 Progress note Author Dee Kenney [facility] August 11, 2022 2:19pm Note Date/Time August 11, 2022 2 :15pm [facility] [address] [place] [address] Hospitalist Progress Note Signed Patient: Carley Quintanilla MR#: [id number] : 1940 Acct:[id number] Age/Sex: 81 / F Adm Date: 2 Loc: 4N Room: [address] [place] [address] Type: ADM IN Attending Dr: Dee Kenney [...] 1,000 mls @ 75 mls/hr 08/10/22 20:30 11/05/22 11:25 0.9% Sodium Chloride 1,000 Ml IV 08/10/23 20:29 75 mls/hr .[id number] CARRI Administration Levothyroxine Sodium 75 mcg 08/11/22 [...] last night. Documented By: Dee Kenney MD 08/11/22 141 Signed By: <Electronically signed by Dee Kenney MD> 08/11/22 1419 [facility] Work Phone: 1([phone]) 368-284911-05-2022 Consult note Author Abdulaziz Alvarez [facility] August 11, 2022 1:13pm Note Date/Time August 11, 2022 1 :09pm [facility] [address] [place] [address] Cardiology Consult Note Signed Patient: Carley Quintanilla MR#: [id number] : 1940 Acct:[id number] Age/Sex: 81 / F Adm Date: 2 Loc: 4N Room: 6E2765-3 Type: ADM IN Attending Dr: Dee Kenney MD Copies to: MD Abdulaziz Ortiz II, MD, [facility] Dee Kenney MD~ Cardiology HPI History of [...] of hypertensionmanaged with Dr. Kali Maharaj in [facility] She has been on diltiazem 360 mg daily. The patient has been stable since admission heart rate in the 50s. Diltiazem has been withheld Review of Systems Review of Systems Review of systems: 11 point review of system otherwise was normal. [facility] Vacc[facility]-19?: Yes Medical History (Updated [...] Lymph # (Auto) 0.9 L (1.00-4.8) x10E3/uL Starr # (Auto) 0.6 (0.0-0.8) x10E3/uL Eos # [...] 07:59 15:59 Intake Total 1480 / 1480 96 / 1959 Output Total 400 / 400 Balance 1080 / 1080 960 / 1959 Intake: IV 1000 / 1000 1000 / 1000 Sodium Chloride 0.9% 1,000 ml 1 1000 / 1000 1000 / 1000 ,000 ml @ 75 mls/hr IV .[id number] [facility] Rx#:[id number] Oral 480 / 480 960 / 960 [...] Tobacco use Documented By: Abdulaziz Alvarez MD, [facility] 2 1304 Signed By: <Electronically signed by [facility] Abdulaziz Alvarez> 08/11/22 1313 [facility] Work Phone: 1([phone] 161-549911-04-2022 History and physical note Author Dee Kenney [facility] August 10, 2022 8:17pm Note Date/Time August 10, 2022 8 :03pm [facility] [address] [place] [address] Hospitalist H&P Signed Patient: Carley Quintanilla MR#: [id number] : 1940 Acct:[id number] Age/Sex: 81 / F Adm Date: 2 Loc: Room: 3R7607-0 Type: ADM IN Attending Dr: Dee Kenney MD Copies to: MD Dee Ortiz II, MD~ HPI DATE OF EXAMINATION: 08/10/22 CHIEF COMPLAINT: Syncopal episode. HISTORY OF PRESENT ILLNESS: Patient is a pleasant 81-year-old female who is a resident of [facility] living with past medical history of hypertension, [...] than mentioned in history of presenting illness [facility] Medical History (Updated 08/10/22 @ 20:14 [...] % (Auto) 9.5 % (.) 08/10/22 17:15 Starr % (Auto) 5.7 % (.) 08/10/22 17:15 Eos % (Auto) 0.7 % (.) 08/10/22 17:15 Baso % (Auto) 0.5 % (.) 08/10/22 17:15 Neut # (Auto) 8.3 x10E3/uL (1.8-7.7) H 08/10/22 17:15 Lymph # (Auto) 0.9 x10E3/uL (1.00-4.8) L 08/10/22 17:15 Starr # (Auto) 0.6 x10E3/uL (0.0-0.8) 08/10/22 17:15 [...] pH 5.5 (5.0-9.0) 08/10/22 19:20 Ur Specific [place] 1.014 (1.001-1.030) 08/10/22 19:20 Urine Protein Negative [...] by Dee Kenney MD> 08/10/222016 [facility] Work Phone: Evaluation noteNo [facility] [employer] Other Evaluation note* Diagnosis Onset Date Resolution Status KRISTAN (acute kidney injury) ac [place] Bilateral carotid artery disease acute HTN (hypertension) acute Syncope acute Tobacco abuse acute [facility] Work Phone: Evaluation noteNo assessment information available [facility] Work Phone: evalulfgmx note* Diagnosis PVD (peripheral vascular disease) ([facility])- Primary Unspecified peripheral vascular disease Onychomycosis [...] History Foot Surgery Hospitalization History hypertension from [facility] [employer] Other History general Narrative - Reported* Type Description Date Medical History CAROTID STENOSIS BILATERAL Medical History hypertension Medical History hypercholesterolemia Medical History acid reflux Surgical History Foot Surgery Surgical History tonsillectomy Surgical History cataract Hospitalization History hypertension from [facility] Other Progress note Author Abdulaziz Alvarez [facility] August 14, 2022 5:26pm Note Date/Time August 14, 2022 5 :26pm [facility] [address] [place] [address] Cardiology Progress Note Signed Patient: Carley Quintanilla MR#: [id number] : 1940 Acct:[id number] Age/Sex: 81 / F Adm Date: 2 Loc: 4N Room: [address] [place] [address] Type: DIS IN Attending Dr: Dee Kenney [...] cessation education Documented By: Abdulaziz Alvarez MD, [facility] 2 1725 Signed By: <Electronically signed by [facility] Abdulaziz Alvarez> 08/14/22 1726 [facility] Work Phone: Summary Purpose Family [...] and content) DATE CREATED AUTHOR 09/15/2018 [facility] DATE CREATED AUTHOR AUTHOR'S ORGANIZ ATION 02/02/2021 [facility] [facility] DATE CREATED AUTHOR AUTHOR'S ORGANIZ ATION 08/30/2021 [facility] DATE CREATED AUTHOR AUTHOR'S ORGANIZ ATION 09/22/2021 [facility] dical Specialist DATE CREATED AUTHOR AUTHOR'S ORGANIZ ATION 09/28/2022 [employer] DATE CREATED AUTHOR AUTHOR'S ORGANIZ ATION 03/18/2023 [facility] DATE CREATED AUTHOR AUTHOR'S ORGANIZ ATION 10/03/2023 [facility] DATE CREATED AUTHOR AUTHOR'S ORGANIZ ATION 03/14/2024 [facility] dical Specialists [facility] REASON FOR VISIT (unrecogniz ed section and content) Reason Comments Toenail Care Care Teams (unrecognized sec tion and content) Team Status: Active Member Role Status Dates Kali Maharaj II MD Primary Care Provider Active Team Status: Inactive Member Role Status Berta Maharaj II MD Primary Care Provider Active Sergio Escudero MD Attending Provider Active Team Status: Inactive Member Role Status Berta Maharaj II MD Primary Care Provider Active Abdulaziz Alvarez MD Attending Provider Active Team Status: Active Member Role Status Berta Bernstein DO Emergency Provider Active Kali Maharaj II MD Primary Care Provider Active Dee Kenney MD Admit Provider, Attending Provider Active Megan Geisert , USED CAR MAKE READY MECHANIC Other Provider Active Kalina Gilbert , USED CAR MAKE READY MECHANIC Other Provider Active Jhonatan Oakes MD Other Provider Active Raysa Robins , SCHOOL PROGRAM DIRECTOR-C Other Provider Active Shelby Unger MD Other Provider Active Sergio Escudero MD Other Provider Active Team Status: Active Member Role Status Berta Maharaj II MD Primary Care Provider Active Abdulaziz Alvarez MD Attending Provider Active Team Status: Inactive Member Role Status Berta Bernstein DO Emergency Provider Active Kali Maharaj II MD Primary Care Provider Active Dee Kenney MD Admit Provider, Attending Provider Active Megan Geisert , USED CAR MAKE READY MECHANIC Other Provider Active Kalina Gilbert , USED CAR MAKE READY MECHANIC Other Provider Active Jhonatan Oakes MD Other Provider Active Raysa Robins , SCHOOL PROGRAM DIRECTOR-C Other Provider Active Shelby Unger MD Other Provider Active Sergio Escudero MD Other Provider Active Team Status: Inactive Member Role Status Berta Maharaj II MD Primary Care Provider Active Rayas Robins , SCHOOL PROGRAM DIRECTOR-C Attending Provider Active Web Ui Designer Relationship Specialty Start Date End Date Kali Maharaj MD [address] [facility] [address] [place] [address] PCP - [employer] 12/05/22 Kali Maharaj MD [address] [facility] [address] [place] [address] PCP - General Internal Medicine 04/10/23 Sarah Lozada LSW Profile [facility] 10/30/23 Web Ui Designer Relationship Specialty Start Date End Date Kali Maharaj MD [address] [facility] [place] [address] PCP - [facility] 12/05/22 Kali Maharaj MD [address] [facility] [place] [address] PCP - General Internal Medicine 04/10/23 Sarah Lozada LSW [facility] 10/30/23 Web Ui Designer Relationship Specialty Start Date End Date Kali Maharaj MD [address] [facility] [address] [place] [address] PCP - [facility] 12/05/22 Kali Maharaj MD [address] [facility] [place] [address] PCP - General Internal Medicine 04/10/23 Sarah Lozada LSW Profile Grinder [facility] 10/30/23 Goals (unrecognized section and content) Goals [...] BE BASED ON THE PRIMARY CLINICAL RECORDS. [facility]. provides no warranty or guarantee of the accuracy or completeness of information in this document.
--- NOTE | 2024-03-14 18:12 | ED_ITS ---
HPI HPI - General Adult General Chief complaint: Extremity Problem, Nontraumatic Stated complaint: RIGHT SIDED PAIN Time Seen by Provider: 03/14/24 18:00 History of Present Illness HPI narrative: Patient presents to ED complaining of right-sided abdominal and hip pain. She was apparently here last week and diagnosed with an ovarian cyst. She was doing okay when she left but then suddenly started having more pain again today. custodial called and said that she was in a lot of pain and pain medication was not even working. I offered the patient pain medication here and she declined. She is having right hip and right lower abdominal pain. She is alert and oriented. She Is a DNR comfort care. No known injury or trauma. No fall. No nausea vomiting no fever. Blood pressure is elevated upon arrival. Related Data Home Medications ?Medication ?Instructions ?Recorded ?Confirmed alendronate 70 mg tablet 70 mg PO QWEEK 03/08/24 03/14/24 amlodipine 10 mg tablet 10 mg PO DAILY 03/08/24 03/14/24 aspirin 81 mg chewable tablet 1 tab PO DAILY 03/08/24 03/14/24 calcium carbonate 500 mg-vitamin 1 tab PO BID 03/08/24 03/14/24 D3 10 mcg (400 unit) tablet (Oyster Shell Calcium-Vitamin D3) donepezil 10 mg tablet 20 mg PO DAILY 03/08/24 03/14/24 hydralazine 25 mg tablet 25 mg PO TID 03/08/24 03/14/24 levothyroxine 75 mcg tablet 75 mcg PO DAILY 03/08/24 03/14/24 lisinopril 20 1 tab PO BID 03/08/24 03/14/24 mg-hydrochlorothiazide 12.5 mg tablet memantine 10 mg tablet 10 mg PO BID 03/08/24 03/14/24 jbnmzyes-qbr-twvto acid 0.4 1 tab PO DAILY 03/08/24 03/14/24 mg-lycopene 300 mcg-lutein 250 mcg tablet (CertaVite Senior) pantoprazole 40 mg tablet,delayed 40 mg PO DAILY 03/08/24 03/14/24 release paroxetine HCl 20 mg tablet 20 mg PO DAILY 03/08/24 03/14/24 simvastatin 20 mg tablet 20 mg PO DAILY 03/08/24 03/14/24 Previous Rx's ?Medication ?Instructions ?Recorded hydrocodone 5 mg-acetaminophen 325 1 tab PO Q6H PRN Pain Scale 4-6 03/10/24 mg tablet #10 tabs Allergies Allergy/AdvReac Type Severity Reaction Status Date / Time chocolate Allergy Mild Verified 03/08/24 19:57 Opioid HPI Opioid Management Most Recent Opioid Data: Last Pain Scale 1 03/14/24 20:13 Last Pain Assessment 03/10/24 15:09 Last ED Pain Assessment 03/08/24 16:56 Last ORT Total Score 0 03/08/24 19:47 Last ORT Risk Category Low Risk 03/08/24 19:47 Review of Systems ROS Status of ROS 10 or more systems reviewed and unremark able except as noted in history and below [facility] Medical History (Updated 03/14/24 @ 21:57 by Basil Simpson MD) Depression ?F32.A - Depression, unspecified (ICD-10) GERD (gastroesophageal reflux disease) ?K21.9 - Gastro-esophageal reflux disease without esophagitis (ICD-10) Dementia ?F03.90 - Unspecified dementia, unspecified severity, without behavioral disturbance, psychotic disturbance, mood disturbance, and anxiety (ICD-10) Essential hypertension ?I10 - Essential (primary) hypertension (ICD-10) Social History Highest level of school completed/degree received: some college, no degree Exam Narrative Exam Narrative: Time Seen: [] Vital Signs: [Per nurse's notes.] General: [Alert] Skin: [Warm, dry, no rash.] Head: [Normocephalic, atraumatic.] Neck: [Supple, trachea midline.] Eye: [Pupils are equal, round and reactive to light, extraocular movements are intact, normal conjunctiva.] Ears, nose, mouth and throat: oral mucosa moist. Cardiovascular: [Regular rate and rhythm, no murmur.] Respiratory: [Lungs are clear to auscultation, respirations are non-labored, breath sounds are equal.] Chest wall: [No tenderness, no deformity.] Gastrointestinal: [Soft, Tenderness in the right lower quadrant, Guarding, non distended, normal bowel sounds.] MSK: Tenderness to palpation in the right anterior hip and upper thigh. Normal distal pulses and sensation Lymphatics: [No lymphadenopathy.] Psychiatric: [Cooperative, appropriate mood & affect.] Neurological: [Alert and oriented to person, place, time, and situation, no focal neurological deficit observed.] Constitutional Vital Signs, click to edit/add: Last Vital Signs Temp 97.7 F 03/14/24 18:01 Pulse 81 03/14/24 18:01 Resp 18 03/14/24 18:01 BP 144/53 H 03/14/24 19:20 Pulse Ox 99 03/14/24 18:01 Course Vital Signs Vital signs: Vital Signs Temperature 97.7 F 03/14/24 18:01 Pulse Rate 81 03/14/24 18:01 Respiratory Rate 18 03/14/24 18:01 Blood Pressure 210/70 H 03/14/24 18:01 Pulse Oximetry 99 03/14/24 18:01 Temperature 97.7 F 03/14/24 18:01 Pulse Rate 81 03/14/24 18:01 Respiratory Rate 18 03/14/24 18:01 Blood Pressure 144/53 H 03/14/24 19:20 Pulse Oximetry 99 03/14/24 18:01 Medical Decision Making Lab Data Labs: Lab Results 03/14/24 03/14/24 Range/Units 18:24 21:30 WBC 10.0 (4.0-11.0) 10^3/uL RBC 4.36 (4.20-5.40) 10^6/uL Hgb 13.1 (12.0-16.0) g/dL Hct 40.0 (36.0-48.0) % MCV 91.7 (81.0-99.0) fL MCH 30.0 (26.7-34.0) pg MCHC 32.8 (29.9-35.2) g/dL RDW 13.2 (11.0-15.0) % Plt Count 228 (150-450) 10^3/uL MPV 11.7 (9.5-13.5) fL Neut % (Auto) 66.7 (43.0-75.0) % Lymph % (Auto) 24.9 (20.5-60.0) % [place] % (Auto) 5.6 (1.7-12.0) % Eos % (Auto) 1.8 (0.9-7.0) % Baso % (Auto) 0.6 (0.2-2.0) % Neut # (Auto) 6.6 H (1.4-6.5) 10^3/uL Lymph # (Auto) 2.5 (1.2-3.8) 10^3/uL [place] # (Auto) 0.6 (0.3-0.8) 10^3/uL Eos # (Auto) 0.2 (0.0-0.7) 10^3/uL Baso # (Auto) 0.1 (0.0-0.1) 10^3/uL Abs Immat Gran (auto) 0.04 H (0.00-0.03) 10^3/uL Imm/Tot Granulo (auto) 0.4 (0.0-0.5) % Sodium 142 (136-145) mmol/L Potassium 4.1 (3.5-5.1) mmol/L Chloride 105 (98-107) mmol/L Carbon Dioxide 28.2 (21.0-32.0) mmol/L Anion Gap 12.9 BUN 32.0 H (7.0-18.0) mg/dL Creatinine 1.28 H (0.55-1.02) mg/dL Est GFR ( Amer) 48 L (>=60) Est GFR (Non-Af Amer) 40 L (>=60) BUN/Creatinine Ratio 25.0 Glucose 93 (74-106) mg/dL Lactate 1.0 (0.4-2.0) mmol/L Calcium 9.8 (8.5-10.1) mg/dL Total Bilirubin 0.3 (0.2-1.0) mg/dL AST 12 L (15-37) U/L ALT 13 L (14-59) U/L Alkaline Phosphatase 76 (46-116) U/L Total Protein 6.9 (6.4-8.2) g/dL Albumin 3.3 L (3.4-5.0) g/dL Globulin 3.6 g/dL Albumin/Globulin Ratio 0.9 Urine Color Yellow (YELLOW) Urine Clarity Clear (CLEAR) Urine pH 6.0 (5.0-9.0) Ur Specific [place] 1.010 (1.005-1.025) Urine Protein Negative (NEG/TRACE) mg/dL Urine Glucose (UA) Negative (NEGATIVE) mg/dL Urine Ketones Negative (NEGATIVE) mg/dL Urine Occult Blood Negative (NEGATIVE) Urine Nitrite Negative (NEGATIVE) Urine Bilirubin Negative (NEGATIVE) Urine Urobilinogen 0.2 (0.2-1.0) EU/dL Ur Leukocyte Esterase Negative (NEGATIVE) Discharge Plan Discharge Stand Alone Forms: Portal Instructions Chief Complaint: Extremity Problem, Nontraumatic Clinical Impression: Adnexal cyst Patient Disposition: Home, Self-Care Time of Disposition Decision: 21:56 Condition: Good Mode of Transportation: Private Vehicle Prescriptions / Home Meds: No Action alendronate 70 mg tablet 70 mg PO QWEEK amlodipine 10 mg tablet 10 mg PO DAILY aspirin 81 mg tablet,chewable 1 tab PO DAILY calcium carbonate-vitamin D3 [Oyster Shell Calcium-Vit D3] 500 mg-10 mcg (400 unit) tablet 1 tab PO BID donepezil 10 mg tablet 20 mg PO DAILY hydralazine 25 mg tablet 25 mg PO TID levothyroxine 75 mcg tablet 75 mcg PO DAILY lisinopril-hydrochlorothiazide 20-12.5 mg tablet 1 tab PO BID memantine 10 mg tablet 10 mg PO BID pantoprazole 40 mg tablet,delayed release (DR/EC) 40 mg PO DAILY paroxetine HCl 20 mg tablet 20 mg PO DAILY simvastatin 20 mg tablet 20 mg PO DAILY CertaVite Senior 0.4 mg-300 mcg- 250 mcg tablet 1 tab PO DAILY hydrocodone-acetaminophen 5-325 mg Tablet 1 tab PO Q6H PRN (Reason: Pain Scale 4-6) Qty: 10 0RF Print Language: Uruguayan Instructions: Ovarian Cyst (ED) Referrals: JUAN NEUMANN [Primary Care Provider] - 1 week Discharge Date/Time: 03/14/24 22:34
[2024-03-14 18:36] LABS: Basophils Absolute Auto 0.1 10^3/uL (0.0-0.1); Basophils Percent Auto 0.6 % (0.2-2.0); Eosinophils Absolute Auto 0.2 10^3/uL (0.0-0.7); Eosinophils Percent Auto 1.8 % (0.9-7.0); Hemoglobin 13.1 g/dL (12.0-16.0); Immature Granulocytes Abs Auto 0.04 10^3/uL (0.00-0.03); Immature Granulocytes Pct Auto 0.4 % (0.0-0.5); Lymphocytes Absolute Auto 2.5 10^3/uL (1.2-3.8); Lymphocytes Percent Auto 24.9 % (20.5-60.0); Mean Corpuscular HGB Conc 32.8 g/dL (29.9-35.2); Mean Corpuscular Volume 91.7 fL (81.0-99.0); Mean Platelet Volume 11.7 fL (9.5-13.5); Monocytes Absolute Auto 0.6 10^3/uL (0.3-0.8); Monocytes Percent Auto 5.6 % (1.7-12.0); Neutrophils Absolute Auto 6.6 10^3/uL (1.4-6.5); Neutrophils Percent Auto 66.7 % (43.0-75.0); Platelet Count 228 10^3/uL (150-450); Red Blood Count 4.36 10^6/uL (4.20-5.40); Red Cell Distribution Width 13.2 % (11.0-15.0)
[2024-03-14 18:50] LABS: Alanine Aminotransferase 13 U/L (14-59); Albumin Globulin Ratio 0.9; Albumin Level 3.3 g/dL (3.4-5.0); Alkaline Phosphatase 76 U/L (46-116); Anion Gap 12.9; Aspartate Amino Transferase 12 U/L (15-37); Bilirubin Total 0.3 mg/dL (0.2-1.0); Calcium 9.8 mg/dL (8.5-10.1); Carbon Dioxide 28.2 mmol/L (21.0-32.0); Chloride 105 mmol/L (98-107); Estimated GFR (African America 48 (>=60); Estimated GFR (Non-African Ame 40 (>=60); Globulin 3.6 g/dL; Glucose 93 mg/dL (74-106); Potassium 4.1 mmol/L (3.5-5.1); Sodium 142 mmol/L (136-145); Total Protein 6.9 g/dL (6.4-8.2)
--- NOTE | 2024-03-14 19:15 | CT_ITS ---
The [address] [address] Patient Name: CARLEY QUINTANILLA MRN: [id number] date: 1940 Sex: F Assigned Patient Location: ER Current Patient Location: ED.MAIN Accession/Order Number: [id number] Exam Date: 03/14/2024 19:27 Report Date: 03/14/2024 20:49 At the request of: JARAD AMARO Procedure: CT abdomen pelvis w con PROCEDURE: CT abdomen pelvis w con CLINICAL INDICATION: 83 years Female Right lower quadrant abdomen pain, hip pain COMPARISONS: CT abdomen pelvis dated 03/08/2024. TECHNIQUE: CT imaging of the abdomen and pelvis was performed following intravenous administration of 100 mL of Omnipaque 300. Coronal and sagittal reformations were created. Individualized dose optimization technique was used for the procedure performed. FINDINGS: Limited visualization of lung bases is unremarkable. There is no pleural or pericardial effusion. There is a small hiatal hernia. Gallbladder is surgically absent. There is fatty infiltration of the liver. Left kidney lower pole cyst is again seen. Spleen, pancreas, adrenal glands and right kidney are normal. Bowel loops are normal in course and caliber, there is no obstruction or free air. Appendix is normal. There is mild sigmoid diverticulosis. A 9 cm right adnexal simple cyst is stable in size. Tubal ligation clips are also again noted. There is no ascites or adenopathy. 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 Advanced multilevel arthritic changes of the visualized thoracolumbar spine are also again seen. 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 CT/CT abdomen pelvis w con IMPRESSION: 1. No acute abnormality within the upper abdomen and pelvis. 2. Stable 9 cm right adnexal simple cyst. Electronically authenticated by: NAT CURRIE Date: 03/14/2024 20:49
[2024-03-14 19:20] VITALS: BP 144/53
[2024-03-14 21:37] LABS: Bilirubin Urine NEGATIVE (NEGATIVE); Blood Urine NEGATIVE (NEGATIVE); Clarity Urine CLEAR (CLEAR); Color Urine YELLOW (YELLOW); Glucose Urine UA NEGATIVE (NEGATIVE); Ketones Urine NEGATIVE (NEGATIVE); Leukocyte Esterase Urine NEGATIVE (NEGATIVE); Nitrite Urine NEGATIVE (NEGATIVE); Protein Urine NEGATIVE (NEG/TRACE); Urine Microscopic Indicated NO; Urobilinogen Urine 0.2 EU/dL (0.2-1.0)
--- NOTE | 2024-03-14 21:57 | ED_ITS ---
HPI HPI - General Adult General Chief complaint: Extremity Problem, Nontraumatic Stated complaint: RIGHT SIDED PAIN Time Seen by Provider: 03/14/24 18:00 History of Present Illness HPI narrative: The patient was initially seen by Dr. White and signed out to me after discussing the case with her thoroughly. Please see her full history and physical exam. Related Data Home Medications ?Medication ?Instructions ?Recorded ?Confirmed alendronate 70 mg tablet 70 mg PO QWEEK 03/08/24 03/14/24 amlodipine 10 mg tablet 10 mg PO DAILY 03/08/24 03/14/24 aspirin 81 mg chewable tablet 1 tab PO DAILY 03/08/24 03/14/24 calcium carbonate 500 mg-vitamin 1 tab PO BID 03/08/24 03/14/24 D3 10 mcg (400 unit) tablet (Oyster Shell Calcium-Vitamin D3) donepezil 10 mg tablet 20 mg PO DAILY 03/08/24 03/14/24 hydralazine 25 mg tablet 25 mg PO TID 03/08/24 03/14/24 levothyroxine 75 mcg tablet 75 mcg PO DAILY 03/08/24 03/14/24 lisinopril 20 1 tab PO BID 03/08/24 03/14/24 mg-hydrochlorothiazide 12.5 mg tablet memantine 10 mg tablet 10 mg PO BID 03/08/24 03/14/24 [id number] acid 0.4 1 tab PO DAILY 03/08/24 03/14/24 mg-lycopene 300 mcg-lutein 250 mcg tablet (CertaVite Senior) pantoprazole 40 mg tablet,delayed 40 mg PO DAILY 03/08/24 03/14/24 release paroxetine HCl 20 mg tablet 20 mg PO DAILY 03/08/24 03/14/24 simvastatin 20 mg tablet 20 mg PO DAILY 03/08/24 03/14/24 Previous Rx's ?Medication ?Instructions ?Recorded hydrocodone 5 mg-acetaminophen 325 1 tab PO Q6H PRN Pain Scale 4-6 03/10/24 mg tablet #10 tabs Allergies Allergy/AdvReac Type Severity Reaction Status Date / Time chocolate Allergy Mild Verified 03/08/24 19:57 Opioid HPI Opioid Management Most Recent Opioid Data: Last Pain Scale 1 03/14/24 20:13 Last Pain Assessment 03/10/24 15:09 Last ED Pain Assessment 03/08/24 16:56 Last ORT Total Score 0 03/08/24 19:47 Last ORT Risk Category Low Risk 03/08/24 19:47 [facility] Medical History (Updated 03/14/24 @ 21:57 by Basil Simpson MD) Depression ?F32.A - Depression, unspecified (ICD-10) GERD (gastroesophageal reflux disease) ?K21.9 - Gastro-esophageal reflux disease without esophagitis (ICD-10) Dementia ?F03.90 - Unspecified dementia, unspecified severity, without behavioral disturbance, psychotic disturbance, mood disturbance, and anxiety (ICD-10) Essential hypertension ?I10 - Essential (primary) hypertension (ICD-10) Social History Highest level of school completed/degree received: some college, no degree Exam Constitutional Vital Signs, click to edit/add: Last Vital Signs Temp 97.7 F 03/14/24 18:01 Pulse 81 03/14/24 18:01 Resp 18 03/14/24 18:01 BP 144/53 H 03/14/24 19:20 Pulse Ox 99 03/14/24 18:01 Course Vital Signs Vital signs: Vital Signs Temperature 97.7 F 03/14/24 18:01 Pulse Rate 81 03/14/24 18:01 Respiratory Rate 18 03/14/24 18:01 Blood Pressure 210/70 H 03/14/24 18:01 Pulse Oximetry 99 03/14/24 18:01 Temperature 97.7 F 03/14/24 18:01 Pulse Rate 81 03/14/24 18:01 Respiratory Rate 18 03/14/24 18:01 Blood Pressure 144/53 H 03/14/24 19:20 Pulse Oximetry 99 03/14/24 18:01 Medical Decision Making MDM Narrative Medical decision making narrative: CAT scan shows unchanged adnexal cyst. Blood work is normal and urinalysis is negative. She is asymptomatic now and will be following up with Dr. Rivas. Findings were discussed with the patient. Differential Diagnosis Differential Diagnosis: Ovarian cyst, UTI, constipation Lab Data Lab results reviewed: Yes I reviewed the patient's lab results Labs: Lab Results 03/14/24 03/14/24 Range/Units 18:24 21:30 WBC 10.0 (4.0-11.0) 10^3/uL RBC 4.36 (4.20-5.40) 10^6/uL Hgb 13.1 (12.0-16.0) g/dL Hct 40.0 (36.0-48.0) % MCV 91.7 (81.0-99.0) fL MCH 30.0 (26.7-34.0) pg MCHC 32.8 (29.9-35.2) g/dL RDW 13.2 (11.0-15.0) % Plt Count 228 (150-450) 10^3/uL MPV 11.7 (9.5-13.5) fL Neut % (Auto) 66.7 (43.0-75.0) % Lymph % (Auto) 24.9 (20.5-60.0) % [place] % (Auto) 5.6 (1.7-12.0) % Eos % (Auto) 1.8 (0.9-7.0) % Baso % (Auto) 0.6 (0.2-2.0) % Neut # (Auto) 6.6 H (1.4-6.5) 10^3/uL Lymph # (Auto) 2.5 (1.2-3.8) 10^3/uL [place] # (Auto) 0.6 (0.3-0.8) 10^3/uL Eos # (Auto) 0.2 (0.0-0.7) 10^3/uL Baso # (Auto) 0.1 (0.0-0.1) 10^3/uL Abs Immat Gran (auto) 0.04 H (0.00-0.03) 10^3/uL Imm/Tot Granulo (auto) 0.4 (0.0-0.5) % Sodium 142 (136-145) mmol/L Potassium 4.1 (3.5-5.1) mmol/L Chloride 105 (98-107) mmol/L Carbon Dioxide 28.2 (21.0-32.0) mmol/L Anion Gap 12.9 BUN 32.0 H (7.0-18.0) mg/dL Creatinine 1.28 H (0.55-1.02) mg/dL Est GFR ( Amer) 48 L (>=60) Est GFR (Non-Af Amer) 40 L (>=60) BUN/Creatinine Ratio 25.0 Glucose 93 (74-106) mg/dL Lactate 1.0 (0.4-2.0) mmol/L Calcium 9.8 (8.5-10.1) mg/dL Total Bilirubin 0.3 (0.2-1.0) mg/dL AST 12 L (15-37) U/L ALT 13 L (14-59) U/L Alkaline Phosphatase 76 (46-116) U/L Total Protein 6.9 (6.4-8.2) g/dL Albumin 3.3 L (3.4-5.0) g/dL Globulin 3.6 g/dL Albumin/Globulin Ratio 0.9 Urine Color Yellow (YELLOW) Urine Clarity Clear (CLEAR) Urine pH 6.0 (5.0-9.0) Ur Specific [place] 1.010 (1.005-1.025) Urine Protein Negative (NEG/TRACE) mg/dL Urine Glucose (UA) Negative (NEGATIVE) mg/dL Urine Ketones Negative (NEGATIVE) mg/dL Urine Occult Blood Negative (NEGATIVE) Urine Nitrite Negative (NEGATIVE) Urine Bilirubin Negative (NEGATIVE) Urine Urobilinogen 0.2 (0.2-1.0) EU/dL Ur Leukocyte Esterase Negative (NEGATIVE) Imaging Data CT scan - abdomen: Radiologist's impression: ITS Impressions Abdomen/Pelvis CT 03/14/24 19:15 IMPRESSION: 1. No acute abnormality within the upper abdomen and pelvis. 2. Stable 9 cm right adnexal simple cyst. Electronically authenticated by: NAT CURRIE Date: 03/14/2024 20:49 Discharge Plan Discharge Stand Alone Forms: Portal Instructions Chief Complaint: Extremity Problem, Nontraumatic Clinical Impression: Adnexal cyst Patient Disposition: Home, Self-Care Time of Disposition Decision: 21:56 Condition: Good Mode of Transportation: Private Vehicle Prescriptions / Home Meds: No Action alendronate 70 mg tablet 70 mg PO QWEEK amlodipine 10 mg tablet 10 mg PO DAILY aspirin 81 mg tablet,chewable 1 tab PO DAILY calcium carbonate-vitamin D3 [Oyster Shell Calcium-Vit D3] 500 mg-10 mcg (400 unit) tablet 1 tab PO BID donepezil 10 mg tablet 20 mg PO DAILY hydralazine 25 mg tablet 25 mg PO TID levothyroxine 75 mcg tablet 75 mcg PO DAILY lisinopril-hydrochlorothiazide 20-12.5 mg tablet 1 tab PO BID memantine 10 mg tablet 10 mg PO BID pantoprazole 40 mg tablet,delayed release (DR/EC) 40 mg PO DAILY paroxetine HCl 20 mg tablet 20 mg PO DAILY simvastatin 20 mg tablet 20 mg PO DAILY CertaVite Senior 0.4 mg-300 mcg- 250 mcg tablet 1 tab PO DAILY hydrocodone-acetaminophen 5-325 mg Tablet 1 tab PO Q6H PRN (Reason: Pain Scale 4-6) Qty: 10 0RF Print Language: Upper Sorbian Instructions: Ovarian Cyst (ED) Referrals: JUAN NEUMANN [Primary Care Provider] - 1 week
== END 2024-03-14 22:34 | disposition home or self-care (01) ==
PROVIDERS: Emergency Medicine; Emergency Provider Emergency Medicine; PCP Internal Medicine
DX: N94.89 Other specified conditions associated with female genital organs and menstrual cycle (principal); Z66 Do not resuscitate
CPT/HCPCS: 36415; 74177; 80053; 81003; 83605; 85025; 99284; Q9967

== ENCOUNTER 2024-03-27 13:44 | Outpatient (OUT) | payer MEDICARE, MEDICAID, SELFPAY ==
--- NOTE | 2024-03-27 | US_ITS ---
The [address] [address] Patient Name: CARLEY QUINTANILLA MRN: [id number] date: 1940 Sex: F Assigned Patient Location: US Current Patient Location: Accession/Order Number: [id number] Exam Date: 03/27/2024 14:25 Report Date: 03/28/2024 11:21 At the request of: SOFIA CONROY Procedure: US pelvis EXAM: US pelvis HISTORY: . Complex ovarian cyst . COMPARISON: 03/09/2024 TECHNIQUE: Transabdominal scanning was performed FINDINGS: Scanning of the pelvis demonstrates an anteverted uterus measuring 7 x 2.5 x 1.7 cm. Endometrial complex measures 3 mm. Left ovary was not identified. In the right adnexal region there is a 7.2 x 9.2 x 7.4 cm cystic area. No free fluid is noted in the cul-de-sac. US/US pelvis IMPRESSION: 1. Normal-appearing uterus and endometrial complex. 2. Left ovary was not identified. 3. In the right adnexa there is a 7.4 x 9.2 x 7.2 cm simple cyst. A similar finding was noted on the previous ultrasound of 03/09/2024. This also corresponds with the cystic area noted on CT. Electronically authenticated by: PRIETO WARD Date: 03/28/2024 11:21
== END 2024-03-27 13:45 | disposition home or self-care (01) ==
LOC: US 13:45
PROVIDERS: PCP Internal Medicine; Visit Provider Obstetrics & Gynecology
DX: N83.291 Other ovarian cyst, right side (principal)
CPT/HCPCS: 76856

== ENCOUNTER 2024-04-06 06:38 | Outpatient (REF) | payer MEDICARE, MEDICAID, SELFPAY ==
--- OUTSIDE RECORDS SUMMARY | 2024-04-03 03:08 | XMS_ITS | CCD ---
Author Organization [facility] Care Team Providers Care Title One Teacher Name Role Phone PHYSICIAN, DEFAULT Unavailable Unavailable PHYSICIAN, DEFAULT Unavailable Unavailable KALI MAHARAJ Unavailable Unavailable PROVIDER, UNKNOWN Attending Unavailable PROVIDER, UNKNOWN Admitting Unavailable LULU FRIEDMAN Attending Unavailable NICKO, DR MARTINEZ Primary Care Unavailable LULU FRIEDMAN Admitting Unavailable LULU FRIEDMAN Attending Unavailable NICKO, DR MARTINEZ Primary Care Unavailable LULU FRIEDMAN Admitting Unavailable NADERELaney, DR ZACH Albarran Consulting Unavailable FRANCIACHKATT, DAVID [...] Oakes Unavailable DO Edward Bernstein Emergency Provider [phone] DYLON Maharaj Primary Care Provider [phone] MD Dee Kenney Admit Provider MD Dee Kenney Attending Provider JUAN CARLOS Jenkins Other Provider UnavailJUAN CARLOS Silver Other Provider Unavailable MD Jhonatan Oakes Other Provider DEEPA Robins Other Provider MD Shelby Unger Other Provider MD Sergio Escudero Other Provider MD Abdulaziz Alvarez Attending Provider MD Abdulaziz Alvarez Attending Provider Sergio Escudero Unavailable Unavailable Unavailable AlvarezAbdulaziz day Attending Unavailable Nicko II, Dr. Kali Murdock Primary Care Renee vailable Alvarez, Cintron Referring Unavailable Maharaj II, Dr. Kali Murdock Primary Care Renee vailable Alvarez, Cintron Attending Unavailable Alvarez, Abdulaziz Referring Unavailable Alvarez, Abdulaziz Attending Unavailable Nicko II, Dr. Kali Murdock Primary Care Renee vailable Alvarez, Abdulaziz Attending Unavailable Alvarez, Abdulaziz Attending Unavailable Alvarez, Abdulaziz Attending Unavailable Raysa Robins Unavailable DYLON Maharaj Primary Care Provider MD Sergio Escudero Attending Provider DYLON Maharaj Primary Care Provider DEEPA Robins Attending Provider Kali Maharaj MD Unavailable [phone] Kali Maharaj MD Primary Care Provider Neville GRINDER AND PLATER, Sarah Unavailable Unavailable Neville GRINDER [employer] PLATER, Sarah Unavailable Kali Maharaj MD Primary Care Provider ABDULAZIZ ALVAREZ Attending Unavailable KALI MAHARAJ Primary Care Unavailable Raysa Robins Attending Unavailable Raysa Robins Admitting Unavailable Kali Maharaj Primary Care Unavailable YULIA MCCRAY Attending Unavailable KALI MAHARAJ Attending Unavailable ISMAEL AQUINO Attending Unavailable YULIA MCCRAY Attending Unavailable KALI MAHARAJ Attending Unavailable PILY YAÑEZ Attending Unavailable SOFIA CONROY Attending Unavailable KALI MAHARAJ Attending Unavailable Allergies Allergy Classification Reported Allergen(s) Allergy Type Date of Onset Reaction(s) Facility (1 source) Chocolate Drug allergy (disorder) 02-21-2012 [facility] Repository (1 source) Chocolate Drug allergy (disorder) 02-01-2021 [facility] Repository (1 source) Chocolate Drug allergy (disorder) 05-28-2021 [facility] Repository Medications Current Medications Medication Drug Class(es) Dates Sig (Normalized) Sig (Original) amLODIPine 10 mg oral tablet (16 sources) Dihydropyridine Calcium Channel Kelly Start: 2 amLODIPine (Norvasc) 10 mg tablet 1 (one) time each day at the same time. 09/12/2022 Active aspirin 81 mg delayed release oral tablet (17 sources) Platelet Aggregation Inhibitor, Nonsteroidal Anti-inflammatory Drug Start: 1 Aspirin (Gregory Low Dose Aspirin) 81 mg tablet,delayed release (DR/EC) Active 81 MG PO Daily May 29, 2021 11:00pm atorvastatin 80 mg oral tablet (4 sources) HMG-CoA Reductase Inhibitor Start: 1 take 80 mg by mouth once daily at bedtime Atorvastatin Active 80 MG PO Daily at bedtime May 27, 2021 11:00pm calcium carbonate 1250 mg / cholecalciferol 0.01 mg oral tablet (1 source) Vitamin D Start: 4 Oyster Shell Calcium-Vit D3 500 mg-10 mcg (400 unit) tablet 1 tablet 2 times a day. 02/25/2024 Active Calcium Carbonate / Vitamin D (3 sources) Calcium Carbonate-Vitami n D (OYSTER-OPHELIA 500 + D PO) Take by mouth 2 (two) times a day. 0 Active Centrum Silver - (3 sources) Centrum Silver - as directed Orally Active CertaVite Senior 0.4 mg-300 mcg- 250 mcg (1 source) Start: 4 CertaVite Senior 0.4 mg-300 mcg- 250 mcg 1 tablet once daily. 03/01/2024 Active hydrALAZINE hydrochloride 25 mg oral tablet (16 sources) Arteriolar Vasodilator Start: 2 take 1 tablet by mouth three times daily at mealtime hydrALAZINE (Apresoline) 25 mg tablet TAKE 1 TABLET BY MOUTH THREE TIMES A DAY WITH FOOD FOR 90 DAYS 09/12/2022 Active hydroCHLOROthiazide 12.5 mg / lisinopril 20 mg oral tablet (4 sources) Thiazide Diuretic, Angiotensin Converting Enzyme Inhibitor Start: take 1 tablet by mouth twice daily lisinopriL-hydro chlorothiazide 20-12.5 mg tablet Take 1 tablet by mouth twice a day. 02/25/2023 Active Start: 02-25-2023 take 1 tablet by francesca th in the morning lisinopril-hydroCHLOROthiazide 20-12.5 M G tablet Indications: Essential hypertension (CMS/HCC) Take 1 tablet by mouth in the morning and 1 tablet before bedtime. 200 tablet 3 02/25/2023 Active levothyroxine sodium 0.075 mg oral tablet (18 sources) l-Thyroxine Start: 05-28-2021 levothyroxine (Synthroid, Levoxyl) 75 mcg tablet 1 (one) time each day at the same time. 07/17/2022 Active take 1 tablet by francesca th once [...] pantoprazole 40 mg delayed release oral tablet (18 sources) Proton Pump Inhibitor Start: 07-17-2022 take 1 tablet by mouth once daily pantoprazole (ProtoNix) 40 mg EC tablet Take 1 tablet (40 mg) by mouth once daily. 07/17/2022 Active Pantoprazole Sod ium Active PARoxetine hydrochloride 20 mg oral tablet (11 sources) Serotonin Reuptake Inhibitor Start: 08-12-2023 End: 08-11-2024 take 1 tablet by mouth once daily at bedtime PARoxetine (Paxil) 20 mg tablet Take 1 tablet (20 mg) by mouth once daily at bedtime. 08/12/2023 08/11/2024 Active Start: 08-10-2022 take 40 [...] 11:00pm August 14, 2022 1:29pm Start: 07-17-2022 alendronate (F osamax) 70 mg tablet Take 1 tablet weekly 30 min prior to the first food of the day 07/17/2022 Active Alendronate Sodi um Active cephalexin 500 mg [...] DO Active simvastatin 20 mg oral tablet (18 sources) HMG-CoA Reductase Inhibitor Start: 10-22-2022 take [...] with depressed mood] Onset: 04-08-2023 04-08-2023 Chronic Administrative/social admission (4 sources) Lives in a detention; Translations: [Problems related to living in residential institution] Onset: 03-17-2024 03-17-2024 Episodic Cardiac and circulatory congenital anomalies (3 sources) [...] Onset: 08-29-2021 Chronic Disorders of lipid metabolism (17 sources) Hyperlipidemia, unspecified; Translations: [Hyperlipidemia] Onset: 07-11-2015 04-08-2023 Chronic Epilepsy; convulsions (4 sources) Epilepsy, unspecified, not intractable, without status epilepticus; Translations: [EPILEPSY UNS NOT INTRACT W/O SE] Onset: 2021 Chronic Esophageal disorders (4 sources) Gastro-esophageal reflux disease without esophagitis; Translations: [Gastroesophageal reflux disease] Onset: 07-11-2015 04-08-2023 Chronic Essential hypertension (19 sources) Hypertensive disorder; Translations: [Essential (primary) hypertension] [...] [Body Mass Index between 19-24, adult] Episodic Residual codes; unclassified (1 source) History of syncope; Translations: [Personal history of other specified conditions] 03-17-2024 Episodic Screening and history of mental health and substance abuse codes (4 sources) Ex-smoker; Translations: [Personal history of nicotine dependence] Onset: 03-17-2024 03-17-2024 Episodic Substance-related disorders (20 sources) Nicotine dependence, [...] Resolved: 09-21-2022 Episodic Other aftercare (1 source) shelter (current) use of aspirin; Translations: [LONG-TERM CURRENT USE OF ASPIRIN] Onset: 02-09-2021 Episodic Other aftercare (1 source) Other prison (current) drug therapy; Translations: [OTH LONG-TERM CURRENT DRUG THERAPY] Onset: 02-09-2021 Episodic Other [...] spasm of back] Onset: 02-25-2018 04-08-2023 Episodic Unclassified (1 source) Onset: 03-17-2024 03-17-2024 Results Test Name Value Interpretation Reference Range Facility ECG 12 Leadon 03-17-2024 ECG revealed normal sinus rhythm and normal ECG [facility] Work Phone: US carotid doppler BIon 12-2 US carotid doppler BI [facility] [place] [address] [place] [address] Ultrasound Report Signed Patient: Carley Quintanilla MR#: [id number] : 1940 Acct:[id number] Age/Sex: 83 / F ADM Date: 09/26/23 Loc: [facility] Room: Type: [facility] Attending Dr: Raysa Robins IT LEAD-C Ordering Provider: Raysa Robins APRN Date of [...] Sergio Escudero MD09/26/2023 1:51 PM Dictation Location: [place] [address] Tech: Olimpia Anmol Transcribed By: ADEEL 09/26/23 1351 Dictated By: Sergio Escudero MD 09/26/23 1350 Signed By: 09/26/23 1351 Normal [facility] Office Visit (Cardiology)on 09-21-2022 Follow-up visit Diagnoses/Problems [...] quit smoking.; Status:Complete - Retrospective Authorization; Done: [id number] You need to stop smoking. Though it is not easy, more than half of all adult smokers have quit. We encourage you to write down all the reasons you should quit smoking and set a quit date for yourself. Ask us how we can help. You may also call 6-428-VIEG-NOW for free resources and assistance.; Status:Complete - Retrospective Authorization; Done: [id number] Tobacco Use Screening; Status:Complete; Done: [id number] Patient Instructions Please bring all medicines, vitamins, [...] negative for complaint. Vitals Vital Signs Recorded: [id number] 12:15PM Heart Rate84, R Radial Sgfasrka256, RUE Vydgeocmi54, RUE Height5 ft 6 in Aopolv596 lb BMI Vlomtniwgo64.05 kg/m2 BSA Calculated1.76 Tobacco Usea) Yes Patient encouraged to stop using tobacco productsYes PHQ-2 Patient Declined/Screening not indicatedYes (more content not included)... Normal [facility] Tobacco Screening.on 022 Fall risk assessment a) No falls within the last year [facility] [employer] DO Work Phone: Tobacco use status CP a) Yes [facility] [employer] DO Work Phone: Tobacco Screening. Yes [facility] Anna Lozabai 250 DO Work Phone: No Panel Informationon 09-14 [facility] [employer] DO Work Phone: Creatinine and Glomerular fi ltration rate.predicted panel (S/P/Bld)Ordered By: Dee Kenney on 08-12-2022 Creatinine [Mass/Vol] 1.16 mg/dL 0.44-1.03 [facility] Estimated glomerular filtrat ion rate (GFR) non- AmericanOrdered By: Dee Kenney on 08-12-2022 GFR/1.73 sq M.predicted among non-blacks MDRD (S/P/Bld) [Vol rate/Area] 45 mL/Min [facility] No Panel InformationOrdered By: Dee Kenney on 08-12-2022 Estimated GFR () 54 mL/Min [facility] Comment on above: GFR estimated refere nce range: According to KDOQI guidelines, <60 ml/min/1.73m2 is sufficient to diagnose a patient with chronic kidney disease. Pharmacy Creatinine Clearance (Chem 35.61 [facility] Serum or plasma anion gap de terminationOrdered By: Dee Kenney on 08-12-2022 Anion gap [Moles/Vol] 11.3 mmol/L 6.0-15.0 [facility] Serum or plasma calcium azalea urement (mass/volume)Ordered By: Dee Kenney on 08-12-2022 Calcium [Mass/Vol] 8.6 mg/dL 8.2-10.2 [facility] Serum or plasma chloride janet surement (moles/volume)Ordered By: Dee Kenney on 08-12-2022 Chloride [Moles/Vol] 110 mmol/L 95-114 [facility] Serum or plasma glucose azalea urement (mass/volume)Ordered By: Dee Kenney on 08-12-2022 Glucose [Mass/Vol] 95 mg/dL 70-100 [facility] Comment on above: ADA recommended refe rence rangeRandom Glucose Reference Range is dependent on time and content of last meal. Glucose of more than 200 mg/dL in a nonstressed, ambulatory subject supports the diagnosis of Diabetes Mellitus. Serum or plasma potassium me asurement (moles/volume)Ordered By: Dee Kenney on 08-12-2022 Potassium [Moles/Vol] 3.7 mmol/L 3.5-5.1 [facility] Serum or plasma sodium measu rement (moles/volume)Ordered By: Dee Kenney on 08-12-2022 Sodium [Moles/Vol] 141 mmol/L 136-146 [facility] Serum or plasma total carbon dioxide measurement (moles/volume)Ordered By: Dee Kenney on 08-12-2022 CO2 [Moles/Vol] 23.4 mmol/L 22.0-30.0 [facility] Serum or plasma urea nitroge n measurement (mass/volume)Ordered By: Dee Kenney on 08-12-2022 Urea nitrogen [Mass/Vol] 28 mg/dL 9-23 [facility] TSH DL <= 0.005 mIU/L QnOrde red By: Dee Kenney on 08-11-2022 TSH Qn 2.20 m[IU]/L 0.45-5.33 [facility] Basophils Auto (Bld) [#/Vol] Ordered By: Edward Bernstein on 08-10-2022 Basophils (Bld) [#/Vol] 0.1 10*3/uL 0.0-0.2 [facility] Basophils/100 WBC Auto (Bld) Ordered By: Edward Bernstein on 08-10-2022 Basophils/100 WBC (Bld) 0.5 % . [facility] Bilirubin Test strip Ql (U)O rdered By: Edward Bernstein on 08-10-2022 Bilirubin Ql (U) Negative Negative [facility] Body fluid albumin measureme nt (mass/volume)Ordered By: Edward Bernstein on 08-10-2022 Albumin (Body fld) [Mass/Vol] 3.3 g/dL 3.2-5.5 [facility] COVID CepheidOrdered By: Rima Bernstein on 08-10-2022 SARS-CoV-2 (COVID-19) Ab IA Ql Negative Negative [facility] Comment on above: This is a duplicate Cep3dplusme Xpert Xpress CoV-2/Flu/RSV Plus RNA by RT-PCR result to be used for statistical tracking purpose only. SARS-CoV-2 (COVID-19) RNA ALLISON+probe Ql (Unsp spec) [facility] Color Auto (U)Ordered By: Harjit Bernstein on 08-10-2022 Color (U) Yellow Yellow [facility] Eosinophils Auto (Bld) [#/Vo l]Ordered By: Edward Bernstein on 08-10-2022 Eosinophils (Bld) [#/Vol] 0.1 10*3/uL 0.0-0.45 [facility] Eosinophils/100 WBC Auto (Bl d)Ordered By: Edward Bernstein on 08-10-2022 Eosinophils/100 WBC (Bld) 0.7 % . [facility] Erythrocyte distribution wid th Auto (RBC) [Ratio]Ordered By: Edward Bernstein on 08-10-2022 Erythrocyte distribution width (RBC) [Ratio] 13.4 % 11.9-15.3 [facility] Globulin Calc (S) [Mass/Vol] Ordered By: Edward Bernstein on 08-10-2022 Globulin (S) [Mass/Vol] 2.7 g/dL [facility] Glucose Glucometer (dC) [M ass/Vol]Ordered By: Edward Bernstein on 08-10-2022 Glucose [Mass/Vol] 101 mg/dL [facility] Comment on above: Random Glucose Refer ence Range is dependent on time and content of last meal. Glucose of more than 200 mg/dL in a nonstressed, ambulatory subject supports the diagnosis of Diabetes Mellitus. Hematocrit Auto (Bld) [Volum e fraction]Ordered By: Edward Bernstein on 08-10-2022 Hematocrit (Bld) [Volume fraction] 40.9 % 34.0-46.4 [facility] Hemoglobin [Mass/volume] in BloodOrdered By: Edward Bernstein on 08-10-2022 Hemoglobin (Bld) [Mass/Vol] 13.3 g/dL 11.8-15.4 [facility] Ketones Auto test strip (U) [Mass/Vol]Ordered By: Edward Bernstein on 08-10-2022 Ketones (U) [Mass/Vol] Trace Negative [facility] - Chemistry and C hemistry - challengeOrdered By: Edward Bernstein on 08-10-2022 Magnesium [Mass/Vol] 2.2 mg/dL 1.6-2.6 [facility] Natriuretic peptide B (Bld) [Mass/Vol] 29.0 pg/mL 5-100 [facility] Laboratory - CoagulationOrde red By: Edward Bernstein on 08-10-2022 PT Coag (PPP) [Time] 11.0 s 9.0-12.9 [facility] Laboratory - Hematology and Cell countsOrdered By: Edward Bernstein on 08-10-2022 Nucleated RBC/100 WBC (Bld) [Ratio] 0.0 % 0-0.5 [facility] Leukocytes [#/volume] in Blo od by Automated countOrdered By: Edward Bernstein on 08-10-2022 WBC (Bld) [#/Vol] 9.9 10*3/uL 4.5-11.0 [facility] Lymphocytes Auto (Bld) [#/Vo l]Ordered By: Edward Bernstein on 08-10-2022 Lymphocytes (Bld) [#/Vol] 0.9 10*3/uL 1.00-4.8 [facility] Lymphocytes/100 WBC Auto (Bl d)Ordered By: Edward Bernstein on 08-10-2022 Lymphocytes/100 WBC (Bld) 9.5 % . [facility] MCH Auto (RBC) [Entitic mass ]Ordered By: Edward Bernstein on 08-10-2022 MCH (RBC) [Entitic mass] 30.6 pg 24.7-34.3 [facility] MCHC Auto (RBC) [Mass/Vol]Or dered By: Edward Bernstein on 08-10-2022 MCHC (RBC) [Mass/Vol] 32.6 g/dL 32.0-35.0 [facility] MCV Auto (RBC) [Entitic vol] Ordered By: Edward Bernstein on 08-10-2022 MCV (RBC) [Entitic vol] 94.0 fL 80-100 [facility] Monocytes Auto (Bld) [#/Vol] Ordered By: Edward Bernstein on 08-10-2022 Monocytes (Bld) [#/Vol] 0.6 10*3/uL 0.0-0.8 [facility] Monocytes/100 WBC Auto (Bld) Ordered By: Edward Bernstein on 08-10-2022 Monocytes/100 WBC (Bld) 5.7 % . [facility] Neutrophils Auto (Bld) [#/Vo l]Ordered By: Edward Bernstein on 08-10-2022 Neutrophils (Bld) [#/Vol] 8.3 10*3/uL 1.8-7.7 [facility] Neutrophils/100 WBC Auto (Bl d)Ordered By: Edward Bernstein on 08-10-2022 Neutrophils/100 WBC (Bld) 83.6 % . [facility] Nitrite Test strip Ql (U)Ord ered By: Edward Bernstein on 08-10-2022 Nitrite Ql (U) Negative Negative [facility] Platelet mean volume Auto (B ld) [Entitic vol]Ordered By: Edward Bernstein on 08-10-2022 Platelet mean volume (Bld) [Entitic vol] 10.2 fL 6.3-10.7 [facility] Platelet poor plasma interna tional normalized ratio (INR) by coagulation assay (relatOrdered By: Edward Bernstein on 08-10-2022 INR Coag (PPP) [Relative time] 1.0 {INR} [facility] Comment on above: INR Therapeutic Rang e [...] 08-10-2022 Platelets (Bld) [#/Vol] 193 10*3/uL 150-450 [facility] Protein Auto test strip (U) [Mass/Vol]Ordered By: Edward Bernstein on 08-10-2022 Protein (U) [Mass/Vol] Negative Negative [facility] Protein [Mass/volume] in Ser um or PlasmaOrdered By: Edward Bernstein on 08-10-2022 Protein [Mass/Vol] 6.0 g/dL 6.1-7.9 [facility] RBC Auto (Bld) [#/Vol]Ordere d By: Edward Bernstein on 08-10-2022 RBC (Bld) [#/Vol] 4.36 10*6/uL 3.60-5.00 [facility] Serum or plasma alanine jensen otransferase measurement without P-5'-P (enzymatic activiOrdered By: Edward Bernstein on 08-10-2022 ALT No additional P-5'-P [Catalytic activity/Vol] 12 U/L 10-60 [facility] Serum or plasma albumin/glob ulin mass ratioOrdered By: Edward Bernstein on 08-10-2022 Albumin/Globulin [Mass ratio] 1.2 {ratio} [facility] Serum or plasma alkaline sondra sphatase measurement (enzymatic activity/volume)Ordered By: Edward Bernstein on 08-10-2022 ALP [Catalytic activity/Vol] 52 U/L 32-92 [facility] Serum or plasma aspartate am inotransferase measurement (enzymatic activity/volume)Ordered By: Edward Bernstein on 08-10-2022 AST [Catalytic activity/Vol] 16 U/L 10-42 [facility] Serum or plasma total biliru bin measurement (mass/volume)Ordered By: Edward Bernstein on 08-10-2022 Bilirubin [Mass/Vol] 0.5 mg/dL 0.3-1.2 [facility] Specific gravity Auto test s trip (U) [Rel density]Ordered By: Edward Bernstein on 08-10-2022 Specific gravity (U) [Rel density] 1.014 1.001-1.03 0 [facility] Troponin I.cardiac [Mass/vol ume] in Serum or Plasma by High sensitivity methodOrdered By: Edward Bernstein on 08-10-2022 Troponin I.cardiac High sensitivity method [Mass/Vol] 9 pg/mL 0-15 [facility] Urine clarity by refractomet ry automatedOrdered By: Edward Bernstein on 08-10-2022 Clarity Refractometry automated (U) Clear Clear [facility] Urine glucose measurement by automated test strip (mass/volume)Ordered By: Edward Bernstein on 08-10-2022 Glucose Auto test strip (U) [Mass/Vol] Normal mg/dL Normal [facility] Urine hemoglobin detection b y automated test stripOrdered By: Edward Bernstein on 08-10-2022 Hemoglobin Auto test strip Ql (U) Negative Negative [facility] Urine leukocyte esterase det ection by automated test stripOrdered By: Edward Bernstein on 08-10-2022 Leukocyte esterase Auto test strip Ql (U) Negative Negative [facility] Urobilinogen Auto test strip (U) [Mass/Vol]Ordered By: Edward Bernstein on 08-10-2022 Urobilinogen (U) [Mass/Vol] Normal mg/dL Normal [facility] pH Auto test strip (U)Ordere d By: Edward Bernstein on 08-10-2022 pH (U) 5.5 [pH] 5.0-9.0 [facility] MRI Brain w/oon 09-20-2021 MRI Brain w/o CLINICAL HISTORY: COMPARISON: TECHNIQUE: Multiplanar [facility] MRI of the brain was performed contrast. [...] ischemia. Report reported and signed by MATTHEW TRILPETT on 09/21/2021 1240 Normal [facility] Fingerer LYME DISEASE, [place]ST[place]on 08-26-2021 IgG P18 Ab. Absent Normal [facility] Comment on above: Performed By: #### L YMWB #### [facility] [address] [place] [address] Dr. Christian Lebron IgG P23 Ab. Absent Normal [facility] Comment on above: Performed By: #### L YMWB #### [facility] [address] [place] [address] [address] Christian Lebron IgG P28 Ab. Absent Normal [facility] Comment on above: Performed By: #### L YMWB #### [facility] [address] [place] [address] [address] Christian Lebron IgG P30 Ab. Absent [facility] Comment on above: Performed By: #### L YMWB #### [facility] [address] [place] [address] [address] Christian Lebron IgG P39 Ab. Absent Normal [facility] Comment on above: Performed By: #### L YMWB #### [facility] [address] [place] [address] Dr. Christian Lebron IgG P41 Ab. Absent [facility] Comment on above: Performed By: #### L YMWB #### [facility] [address] [place] [address] Dr. Christian Lebron IgG P45 Ab. Absent Normal [facility] Comment on above: Performed By: #### L YMWB #### [facility] [address] [place] [address] Dr. Christian Lebron IgG P58 Ab. Absent [facility] Comment on above: Performed By: #### L YMWB #### [facility] [address] [place] [address] Dr. Christian Lebron IgG P66 Ab. Absent [facility] Comment on above: Performed By: #### L YMWB #### [facility] [address] [place] [address] Dr. Christian Lebron IgG P93 Ab. Absent [facility] Comment on above: Performed By: #### L YMWB #### [facility] [address] [place] [address] Dr. Christian Lebron IgM P23 Ab. Absent [facility] Comment on above: Performed By: #### L YMWB #### [facility] [address] [place] [address] Dr. Christian Lebron IgM P39 Ab. Absent [facility] Comment on above: Performed By: #### L YMWB #### [facility] [address] [place] [address] Dr. Christian Lebron IgM P41 Ab. Absent [facility] Comment on above: Performed By: #### L YMWB #### [facility] [address] [place] [address] Dr. Christian Lebron Lyme IgG WB Interp. Negative [facility] Comment on above: Result Comment: Posi tive: 5 of the following Borrelia-specific bands: 18,23,28,30,39,41,45,58, 66, and 93. Negative: No bands or banding patterns which do not meet positive criteria. Performed By: #### L YMWB #### [facility] [address] [address] [address] Christian Lebron Lyme IgM WB Interp. Negative Normal [facility] Comment on above: Result Comment: Note : [...] are those recommended by CDC/ASTPHLD. p23=Osp C, x33=dnohbgmom . Note: Sera from individuals with the following may cross react in the Lyme Line Blot assays: other spirochetal diseases (periodontal disease, leptospirosis, relapsing fever, yaws, and pinta); connective autoimmune (Rheumatoid Arthritis and Systemic Lupus Erythematosus and also individuals with Antinuclear Antibody); other infections ([employer] Spotted Fever; Roel-Briones Virus, and Cytomegalovirus). . Performed By: #### L YMWB #### [facility] [address] [address] [address] Christian Lebron METHYLMALONIC ACID (MMA)on 10-26-2020 Disclaimer: Comment Normal [facility] Comment on above: Result Comment: This test was developed and its performance characteristics determined by [facility]. It has not been cleared or approved by the Food and Drug Administration. Performed By: #### M MA2 #### [facility] [address] [address] [address] Christian Lebron Methylmalonic Acid, Serum 255 nmol/L Normal 0-378 [facility] Comment on above: Performed By: #### M MA2 #### [facility] [address] [place], [place] [id number] Dr. Christian Lebron HOMOCYSTEINEon 08-25-2021 Homocyst(e)ine, Plasma 29.7 umol/L Critically high 0.0-21. 3 [facility] Comment on above: Result Comment: Spec imen quantity insufficient for verification by repeat analysis. Performed By: #### H OMCY #### [facility] [address] [place] [address] Dr. Christian Lebron RPR QUANTon 08-24-2021 Rapid Plasma Reagin, Quant Non-Reactive Normal NonRea<1:1 [facility] Comment on above: Performed By: #### R PRQ #### [facility] [address] [place] [address] Dr. Christian Lebron AMMONIAon 2021 Ammonia (P) [Moles/Vol] 9 umol/L Critically low 10-30 [facility] Comment on above: Performed By: #### M MA2 #### [facility] [address] [place] [address] Dr. Christian Lebron CRPon 2021 CRP [Mass/Vol] mg/L Normal <=1.0 [facility] Comment on above: Performed By: #### M MA2 #### [facility] [address] [place] [address] Dr. Christian Lebron FOLATEon 2021 FOLATE 4.50 ng/mL Normal >=2.76 [facility] Comment on above: Performed By: #### F T4, VITB12, FOL #### [facility] [address] [place] [address] Dr. Christian Lebron FREE T4on 2021 Free T4 [Mass/Vol] 0.98 ng/dL Normal 0.78-2.19 [facility] Comment on above: Performed By: #### F T4, VITB12, FOL #### [facility] [address] [place] [address] Dr. Christian Lebron LIVER PROFILEon 2021 Albumin [Mass/Vol] 3.6 g/dL Normal 3.5-5.0 [facility] Comment on above: Performed By: #### M MA2 #### [facility] [address] [place] [address] Dr. Christian Lebron Albumin/Globulin [Mass ratio] 1.0 {ratio} Normal [facility] Comment on above: Performed By: #### M MA2 #### [facility] [address] [address] [address] Christian Lebron ALP [Catalytic activity/Vol] 96 U/L Normal 38-126 [facility] Comment on above: Performed By: #### M MA2 #### [facility] [address] [place] [address] Dr. Christian Lebron ALT [Catalytic activity/Vol] 14 U/L Normal 9-52 [facility] Comment on above: Performed By: #### M MA2 #### [facility] [address] [address] [address] Christian Lebron AST [Catalytic activity/Vol] 17 U/L Normal 14-36 [facility] Comment on above: Performed By: #### M MA2 #### [facility] [address] [place] [address] Dr. Christian Lebron BILI, CONJUGATED 0.1 mg/dL Normal 0.0-0.3 [facility] Comment on above: Performed By: #### M MA2 #### [facility] [address] [place] [address] Dr. Christian Lebron Bilirubin [Mass/Vol] 0.3 mg/dL Normal 0.2-1.3 [facility] Comment on above: Performed By: #### M MA2 #### [facility] [address] [place] [address] Dr. Christian Lebron Globulin (S) [Mass/Vol] 3.7 g/dL Normal [facility] Comment on above: Performed By: #### M MA2 #### [facility] [address] [place] [address] Dr. Christian Lebron Protein [Mass/Vol] 7.3 g/dL Normal 6.1-8.2 [facility] Comment on above: Performed By: #### M MA2 #### [facility] [address] [place] [address] Dr. Christian Lebron SED RATE [facility] 2020 SED RATE 31 mm/hr Critically high <=30 [facility] Comment on above: Performed By: #### H JAYDENCY #### [facility] [address] [place], [place] [address] Dr. Christian Lebron TSHon 2021 TSH 3.087 uIU/mL Normal 0.470-4.68 0 [facility] Comment on above: Performed By: #### M MA2 #### [facility] [address] [address] [address] Christian Lebron TSH RANGE SEE BELOW Normal [facility] Comment on above: Result Comment: <0.3 4 UIU/ml HYPERTHYROID 0.34-5.60 UIU/ml EUTHYROID >5.60 UIU/ml HYPOTHYROID Performed By: #### M MA2 #### [facility] [address] [address] [address] Christian Lebron VITAMIN B12on 2021 Cobalamin (Vitamin B12) [Mass/Vol] 521.0 pg/mL Normal 239.0-931. 0 [facility] Comment on above: Performed By: #### F T4, VITB12, FOL #### [facility] [address] [place] [address] Dr. Christian Lebron XR DEXA BONE DENSITYon [...] OMAR SOTELO Date: 2021-07-10 14:50 Normal [facility] CBC AUTO DIFFon 02-02-2021 BASO # 0.1 103/ul Normal 0.0-0.1 [facility] Comment on above: Performed By: #### C BC #### [facility] [address] [place], [place] [id number] Lauri Pily Basophils/100 WBC (Bld) 0.4 % Normal 0.2-2.0 [facility] Comment on above: Performed By: #### C BC #### [facility] [address] [place], [place] [address] Lauri Pily EO # 0.1 103/ul Normal 0.0-0.7 [facility] Comment on above: Performed By: #### C BC #### [facility] [address] [place], [place] [address] Lauri Pily Eosinophils/100 WBC (Bld) 0.9 % Normal 0.9-7.0 [facility] Comment on above: Performed By: #### C BC #### [facility] [address] [place] [address] Lauri Pily Erythrocyte distribution width (RBC) [Ratio] 14.2 % Normal 11.0-15.0 [facility] Comment on above: Performed By: #### C BC #### [facility] [address] [place], [place] [address] Lauri Pily Hematocrit (Bld) [Volume fraction] 40.8 % Normal 36.0-48.0 [facility] Comment on above: Performed By: #### C BC #### [facility] [address] [place], [place] [address] Lauri Pily Hemoglobin (Bld) [Mass/Vol] 13.1 g/dL Normal 12.0-16.0 [facility] Comment on above: Performed By: #### C BC #### [facility] [address] [place] [address] Lauri Pily IG # 0.06 10e3/ul Critically high 0.00-0.03 [facility] Comment on above: Performed By: #### C BC #### [facility] [address] [place], [place] [address] Lauri Pily IG % 0.5 % Normal 0.0-0.5 [facility] Comment on above: Performed By: #### C BC #### [facility] [address] [place] [address] Lauri Pily LYMPH # 2.4 103/ul Normal 1.2-3.8 [facility] Comment on above: Performed By: #### C BC #### [facility] [address] [place], [place] [address] Lauri Pily Lymphocytes/100 WBC (Bld) 20.7 % Normal 20.5-60.0 [facility] Comment on above: Performed By: #### C BC #### [facility] [address] [place], [place] [address] Lauri Pily MANUAL DIFF REQ NO Normal [facility] Comment on above: Performed By: #### C BC #### [facility] [address] [place], [place] [address] Lauri Pily MCH (RBC) [Entitic mass] 28.5 pg Normal 26.7-34.0 [facility] Comment on above: Performed By: #### C BC #### [facility] [address] [place] [address] Lauri Pily MCHC (RBC) [Mass/Vol] 32.1 g/dL Normal 29.9-35.2 [facility] Comment on above: Performed By: #### C BC #### [facility] [address] [place] [address] Lauri Pily MCV (RBC) [Entitic vol] 88.9 fL Normal 81.0-99.0 [facility] Comment on above: Performed By: #### C BC #### [facility] [address] [place], [place] [address] Lauri Pily MONO # 0.9 103/ul Critically high 0.3-0.8 [facility] Comment on above: Performed By: #### C BC #### [facility] [address] [place], [place] [address] Lauri Pily Monocytes/100 WBC (Bld) 7.7 % Normal 1.7-12.0 [facility] Comment on above: Performed By: #### C BC #### [facility] [address] [place] [address] Lauri Pily NEUT # 8.1 103/ul Critically high 1.4-6.5 [facility] Comment on above: Performed By: #### C BC #### [facility] [address] [place], [place] [address] Lauri Nascimento Neutrophils/100 WBC (Bld) 69.8 % Normal 43.0-75.0 [facility] Comment on above: Performed By: #### C BC #### [facility] [address] [place] [address] Lauri Nascimento Platelet mean volume (Bld) [Entitic vol] 11.9 fL Normal 9.5-13.5 [facility] Comment on above: Performed By: #### C BC #### [facility] [address] [place] [address] Lauri Nascimento PLT 197 103/ul Normal 150-450 [facility] Comment on above: Performed By: #### C BC #### [facility] [address] [place] [address] Lauri Nascimento RBC 4.59 106/ul Normal 4.20-5.40 [facility] Comment on above: Performed By: #### C BC #### [facility] [address] [place] [address] Lauri Nascimento WBC 11.6 103/ul Critically high 4.0-11.0 [facility] Comment on above: Performed By: #### C BC #### [facility] [address] [place] [address] Lauri Nascimento PROF CHEM 8 (BAS METB)on Anion gap [Moles/Vol] 12.7 mmol/L Normal [facility] Comment on above: Performed By: #### H OMCY #### [facility] [address] [place] [address] Dr. Christian Lebron Calcium [Mass/Vol] 9.1 mg/dL Normal 8.4-10.2 [facility] Comment on above: Performed By: #### H OMCY #### [facility] [address] [place] [address] Dr. Christian Lebron Chloride [Moles/Vol] 110 mmol/L Critically high 98-107 [facility] Comment on above: Performed By: #### H OMCY #### [facility] [address] [place] [address] Dr. Christian Lebron CO2 [Moles/Vol] 21.7 mmol/L Critically low 22.0-30.0 [facility] Comment on above: Performed By: #### H OMCY #### [facility] [address] [place] [address] Dr. Christian Lebron Creatinine [Mass/Vol] 1.25 mg/dL Critically high 0.52-1.04 [facility] Comment on above: Performed By: #### H OMCY #### [facility] [address] [place] [address] Dr. Christian Lebron EGFR-AF CROATIAN 50 mL/min/1.73m2 Critically low >=60 [facility] Comment on above: Performed By: #### H OMCY #### [facility] [address] [place] [address] Dr. Christian Lebron EGFR-NON AF CROATIAN 41 mL/min/1.73m2 Critically low >=60 [facility] Comment on above: Performed By: #### H OMCY #### [facility] [address] [place] [address] Dr. Christian Lebron Glucose [Mass/Vol] 117 mg/dL Critically high 74-106 [facility] Comment on above: Performed By: #### H OMCY #### [facility] [address] [place] [address] Dr. Christian Lebron Potassium [Moles/Vol] 3.4 mmol/L Normal 3.4-5.0 [facility] Comment on above: Performed By: #### H OMCY #### [facility] [address] [place] [address] Dr. Christian Lebron Sodium [Moles/Vol] 141 mmol/L Normal 137-145 [facility] Comment on above: Performed By: #### H OMCY #### [facility] [address] [place] [address] Dr. Christian Lebron Urea nitrogen [Mass/Vol] 28.0 mg/dL Critically high 7.0-17.0 [facility] Comment on above: Performed By: #### H OMCY #### [facility] [address] [place] [address] Dr. Christian Lebron Urea nitrogen/Creatinine [Mass ratio] 22.4 mg/mg Normal [facility] Comment on above: Performed By: #### H OMCY #### [facility] [address] [place] [address] Dr. Christian Lebron CBC AUTO DIFFon 02-01-2021 BASO # 0.1 103/ul Normal 0.0-0.1 [facility] Comment on above: Performed By: #### M MA2 #### [facility] [address] [place] [address] Dr. Christian Lebron Basophils/100 WBC (Bld) 0.5 % Normal 0.2-2.0 [facility] Comment on above: Performed By: #### M MA2 #### [facility] [address] [place] [address] Dr. Christian Lebron EO # 0.1 103/ul Normal 0.0-0.7 [facility] Comment on above: Performed By: #### M MA2 #### [facility] [address] [place] [address] Dr. Christian Lebron Eosinophils/100 WBC (Bld) 1.0 % Normal 0.9-7.0 [facility] Comment on above: Performed By: #### Khadar MA2 #### [facility] [address] [place] [address] Dr. Christian Lebron Erythrocyte distribution width (RBC) [Ratio] 13.9 % Normal 11.0-15.0 [facility] Comment on above: Performed By: #### M MA2 #### [facility] [address] [place] [address] Dr. Christian Lebron Hematocrit (Bld) [Volume fraction] 38.7 % Normal 36.0-48.0 [facility] Comment on above: Performed By: #### M MA2 #### [facility] [address] [place] [address] Dr. Christian Lebron Hemoglobin (Bld) [Mass/Vol] 12.3 g/dL Normal 12.0-16.0 [facility] Comment on above: Performed By: #### M MA2 #### [facility] [address] [place] [address] Dr. Christian Lebron IG # 0.04 10e3/ul Critically high 0.00-0.03 [facility] Comment on above: Performed By: #### Khadar MA2 #### [facility] [address] [place] [address] Dr. Christian Lebron IG % 0.4 % Normal 0.0-0.5 [facility] Comment on above: Performed By: #### Khadar MA2 #### [facility] [address] [place] [address] Dr. Christian Lebron LYMPH # 2.0 103/ul Normal 1.2-3.8 [facility] Comment on above: Performed By: #### Khadar MA2 #### [facility] [address] [place] [address] Dr. Christian Lebron Lymphocytes/100 WBC (Bld) 22.0 % Normal 20.5-60.0 [facility] Comment on above: Performed By: #### Khadar MA2 #### [facility] [address] [place] [address] Dr. Christian Lebron MANUAL DIFF REQ NO Normal [facility] Comment on above: Performed By: #### Khadar HORNE2 #### [facility] [address] [place] [address] Dr. Christian Lebron MCH (RBC) [Entitic mass] 29.0 pg Normal 26.7-34.0 [facility] Comment on above: Performed By: #### Khadar HORNE2 #### [facility] [address] [place] [address] Dr. Christian Lebron MCHC (RBC) [Mass/Vol] 31.8 g/dL Normal 29.9-35.2 [facility] Comment on above: Performed By: #### Khadar HORNE2 #### [facility] [address] [place] [address] Dr. Christian Lebron MCV (RBC) [Entitic vol] 91.3 fL Normal 81.0-99.0 [facility] Comment on above: Performed By: #### Khadar MA2 #### [facility] [address] [place] [address] Dr. Christian Lebron MONO # 0.8 103/ul Normal 0.3-0.8 [facility] Comment on above: Performed By: #### Khadar MA2 #### [facility] [address] [place] [address] Dr. Christian Lebron Monocytes/100 WBC (Bld) 8.7 % Normal 1.7-12.0 [facility] Comment on above: Performed By: #### Khadar HORNE2 #### [facility] [address] [place] [address] Dr. Christian Lebron NEUT # 6.2 103/ul Normal 1.4-6.5 [facility] Comment on above: Performed By: #### Khadar HORNE2 #### [facility] [address] [place] [address] Dr. Christian eLbron Neutrophils/100 WBC (Bld) 67.4 % Normal 43.0-75.0 [facility] Comment on above: Performed By: #### Khadar HORNE2 #### [facility] [address] [place] [address] Dr. Christian Lebron Platelet mean volume (Bld) [Entitic vol] 11.9 fL Normal 9.5-13.5 [facility] Comment on above: Performed By: #### Khadar HORNE2 #### [facility] [address] [place] [address] Dr. Christian Lebron PLT 175 103/ul Normal 150-450 [facility] Comment on above: Performed By: #### Khadar HORNE2 #### [facility] [address] [place] [address] Dr. Christian Lebron RBC 4.24 106/ul Normal 4.20-5.40 [facility] Comment on above: Performed By: #### Khadar HORNE2 #### [facility] [address] [place] [address] Dr. Christian Lebron WBC 9.1 103/ul Normal 4.0-11.0 [facility] Comment on above: Performed By: #### M MA2 #### [facility] [address] [place] [address] HEAD WO CONon [...] by: YAQUELIN ANSARI Date: 2021-01-31 22:45 Normal [facility] ECHO LIMITED STUDYon 021 ECHO LIMITED STUDY Patient: CARLEY QUINTANILLA Exam Date: 02/01/2021 : 1940 Gender:F Ordering : DR. LULU FRIEDMAN . Admission #: [id number] Family : DR KALI MAHARAJ M.D. Order #: [id number] CLICK HERE TO VIEW EXAM ECHOCARDIOGRAM REPORT [...] Area(A4C): 15.60 cm2 Left Atrium Systolic Volume(A2C): 11379 mm3 Left Atrium Systolic Volume(A4C): 53086 mm3 Mitral Valve Right Ventricle Aorta AO Root Diam: 3.10 cm Aortic Valve Tricuspid Valve Pulmonic Valve Right Atrium Dictated by: Max Ruelas M.D. on 02/01/2021 at 13:45 Approved by: Max Ruelas M.D. on 02/01/2021 at 13:51 Normal [facility] ER URINE PROFILEon 1 Bilirubin Ql (U) Negative Normal NEGATIVE [facility] Comment on above: Performed By: #### E RUR #### [facility] [address] [place] [address] Lauri Nascimento Clarity (U) CLEAR Normal CLEAR [facility] Comment on above: Performed By: #### E RUR #### [facility] [address] [place] [address] Lauri Pily Color (U) LT. YELLOW Normal YELLOW [facility] Comment on above: Performed By: #### E RUR #### [facility] [address] [place] [address] Lauri Pily ERUAHD A micrscopic examina tion will be performed if indicated. Normal [facility] Comment on above: Performed By: #### E RUR #### [facility] [address] [place] [address] Lauri Pily Glucose Ql (U) Negative Normal NEGATIVE [facility] Comment on above: Performed By: #### E RUR #### [facility] [address] [place] [address] Lauri Pily Hemoglobin Ql (U) Negative Normal NEGATIVE [facility] Comment on above: Performed By: #### E RUR #### [facility] [address] [place] [address] Lauri Pily Ketones Ql (U) TRACE Abnormal NEGATIVE [facility] Comment on above: Performed By: #### E RUR #### [facility] [address] [place] [address] Lauri Pily LEUKOCYTES Negative Normal NEGATIVE [facility] Comment on above: Performed By: #### E RUR #### [facility] [address] [place] [address] Lauri Pily Nitrite Ql (U) Negative Normal NEGATIVE [facility] Comment on above: Performed By: #### E RUR #### [facility] [address] [place] [address] Lauri Pily pH (U) 5.0 [pH] Normal 5-9 [facility] Comment on above: Performed By: #### E RUR #### [facility] [address] [place] [address] Lauri Pily SPEC GRAVITY 1.025 Normal 1.005-<=1. 025 [facility] Comment on above: Performed By: #### E RUR #### [facility] [address] [place] [address] Lauri Nascimento UA PROTEIN TRACE Normal NEGATIVE/ TRACE [facility] Comment on above: Performed By: #### E RUR #### [facility] [address] [place] [address] Laurialura Nascimento UR MICRO IND NOT INDICATED Normal [facility] Comment on above: Performed By: #### E RUR #### [facility] [address] [place] [address] Laurilaura Nascimento Urobilinogen Qn (U) 0.2 {Irineo'U}/dL Normal 0.2 - 1. 0 [facility] Comment on above: Performed By: #### E RUR #### [facility] [address] [place] [address] Lauri Nascimento PROF CHEM 8 (BAS METB)on Anion gap [Moles/Vol] 15.6 mmol/L Normal [facility] Comment on above: Performed By: #### Khadar HORNE2 #### [facility] [address] [place] [address] Dr. Christian Lebron Calcium [Mass/Vol] 8.8 mg/dL Normal 8.4-10.2 [facility] Comment on above: Performed By: #### Khadar HORNE2 #### [facility] [address] [place] [address] Dr. Christian Lebron Chloride [Moles/Vol] 109 mmol/L Critically high 98-107 [facility] Comment on above: Performed By: #### Khadar HORNE2 #### [facility] [address] [place] [address] Dr. Christian Lebron CO2 [Moles/Vol] 23.1 mmol/L Normal 22.0-30.0 [facility] Comment on above: Performed By: #### M MA2 #### [facility] [address] [place] [address] Dr. Christian Lebron Creatinine [Mass/Vol] 1.49 mg/dL Critically high 0.52-1.04 [facility] Comment on above: Performed By: #### M MA2 #### [facility] [address] [place] [address] Dr. Christian Lebron EGFR-AF CROATIAN 41 mL/min/1.73m2 Critically low >=60 [facility] Comment on above: Performed By: #### M MA2 #### [facility] [address] [place] [address] Dr. Christian Lebron EGFR-NON AF CROATIAN 34 mL/min/1.73m2 Critically low >=60 [facility] Comment on above: Performed By: #### Khadar HORNE2 #### [facility] [address] [place] [address] Dr. Christian Lebron Glucose [Mass/Vol] 114 mg/dL Critically high 74-106 [facility] Comment on above: Performed By: #### Khadar HORNE2 #### [facility] [address] [place] [address] Dr. Christian Lebron Potassium [Moles/Vol] 3.7 mmol/L Normal 3.4-5.0 [facility] Comment on above: Performed By: #### Khadar HORNE2 #### [facility] [address] [place] [address] Dr. Christian Lebron Sodium [Moles/Vol] 144 mmol/L Normal 137-145 [facility] Comment on above: Performed By: #### Khadar HORNE2 #### [facility] [address] [place] [address] Dr. Christian Lebron Urea nitrogen [Mass/Vol] 28.0 mg/dL Critically high 7.0-17.0 [facility] Comment on above: Performed By: #### Khadar HORNE2 #### [facility] [address] [place] [address] Dr. Christian Lebron Urea nitrogen/Creatinine [Mass ratio] 18.8 mg/mg Normal [facility] Comment on above: Performed By: #### Khadar HORNE2 #### [facility] [address] [place] [address] Dr. Christian Lebron Rapid Covid-19 PCR (CVDRPD)o n 02-01-2021 SARS-CoV-2 (COVID-19) RNA ALLISON+probe Ql (Unsp spec) Not detected Normal NOT DETECTED [facility] Comment on above: Result Comment: This test is not yet approved or cleared by the [place] Food and Drug Administration (FDA). This test was developed by [employer], [place], [place]. The performance characteristics of this test were validated by [facility]. The results are not intended to be used as the sole means for clinical diagnosis or patient management decisions. [facility] is authorized under Clinical Laboratory Improvement Amendments (CLIA) to perform high- complexity testing. When diagnostic testing is negative, the possibility of a false negative should be considered in the context of a patient's recent exposures and the presence of clinical signs and symptoms consistent with SARS-CoV-2. Performed By: #### H OMCY #### [facility] [address] [address] [address] Christian Lebron TROPONIN, HIGH SENSITIVITYon 02-01-2021 HSTROP 15.4 pg/mL Normal 4.0-35.5 [facility] Comment on above: Result Comment: CUT- OFF POINTS HAVE BEEN ESTABLISHED BASED ON THE FOURTH UNIVERSAL DEFINITIONS OF MYOCARDIAL INFARCTION. THE UPPER REFERENCE LIMIT (URL) OF TROPONIN, DEFINED THE 99TH PERCENTILE OF cTnI DISTRIBUTION IN A REFERENCE POPULATION, HAS BEEN CONFIRMED THE DECISION THRESHOLD FOR RI DIAGNOSIS. Performed By: #### H STROPN #### [facility] [address] [id number] Lauri Nascimento XR CHEST 2 Von 02-01-2021 [...] by: YAQUELIN ANSARI Date: 2021-01-31 22:40 Normal [facility] XR PELVIS 1_2 VIEWSon 2020 [...] YAQUELIN ANSARI Date: 2021-01-31 22:41 Normal [facility] BNPon 01-31-2021 Natriuretic peptide B (Bld) [Mass/Vol] 1162.0 pg/mL Normal <=1,800.0 [facility] Comment on above: Performed By: #### H OMCY #### [facility] [address] [place] [address] Dr. Christian Lebron CBC AUTO DIFFon 01-31-2021 BASO # 0.0 103/ul Normal 0.0-0.1 [facility] Comment on above: Performed By: #### E RUR #### [facility] [address] [place], [place] [id number] Lauri Pily Basophils/100 WBC (Bld) 0.4 % Normal 0.2-2.0 [facility] Comment on above: Performed By: #### E RUR #### [facility] [address] [place] [address] Lauri Pily EO # 0.1 103/ul Normal 0.0-0.7 [facility] Comment on above: Performed By: #### E RUR #### [facility] [address] [place] [address] Lauri Pily Eosinophils/100 WBC (Bld) 0.9 % Normal 0.9-7.0 [facility] Comment on above: Performed By: #### E RUR #### [facility] [address] [place] [address] Lauri Pily Erythrocyte distribution width (RBC) [Ratio] 13.8 % Normal 11.0-15.0 [facility] Comment on above: Performed By: #### E RUR #### [facility] [address] [place], [place] [id number] Lauri Pily Hematocrit (Bld) [Volume fraction] 42.8 % Normal 36.0-48.0 [facility] Comment on above: Performed By: #### E RUR #### [facility] [address] [place], [place] [id number] Lauri Pily Hemoglobin (Bld) [Mass/Vol] 13.8 g/dL Normal 12.0-16.0 [facility] Comment on above: Performed By: #### E RUR #### [facility] [address] [place] [address] Laurilaura Nascimento IG # 0.04 10e3/ul Critically high 0.00-0.03 [facility] Comment on above: Performed By: #### E RUR #### [facility] [address] [place] [address] Laurilaura Nascimento IG % 0.4 % Normal 0.0-0.5 [facility] Comment on above: Performed By: #### E RUR #### [facility] [address] [place] [address] Laurilaura Nascimento LYMPH # 2.3 103/ul Normal 1.2-3.8 [facility] Comment on above: Performed By: #### E RUR #### [facility] [address] [place] [address] Lauri Gavinen Lymphocytes/100 WBC (Bld) 21.7 % Normal 20.5-60.0 [facility] Comment on above: Performed By: #### E RUR #### [facility] [address] [place] [address] Lauri Nascimento MANUAL DIFF REQ NO Normal [facility] Comment on above: Performed By: #### E RUR #### [facility] [address] [place] [address] Lauri Nascimento MCH (RBC) [Entitic mass] 28.9 pg Normal 26.7-34.0 [facility] Comment on above: Performed By: #### E RUR #### [facility] [address] [place] [address] Lauri Nascimento MCHC (RBC) [Mass/Vol] 32.2 g/dL Normal 29.9-35.2 [facility] Comment on above: Performed By: #### E RUR #### [facility] [address] [place] [address] Lauri Pily MCV (RBC) [Entitic vol] 89.7 fL Normal 81.0-99.0 [facility] Comment on above: Performed By: #### E RUR #### [facility] [address] [place], [place] [id number] Lauri Nascimento MONO # 0.9 103/ul Critically high 0.3-0.8 [facility] Comment on above: Performed By: #### E RUR #### [facility] [address] [place], [place] [id number] Lauri Nascimento Monocytes/100 WBC (Bld) 8.0 % Normal 1.7-12.0 [facility] Comment on above: Performed By: #### E RUR #### [facility] [address] [place], [place] [id number] Lauri Nascimenot NEUT # 7.4 103/ul Critically high 1.4-6.5 [facility] Comment on above: Performed By: #### E RUR #### [facility] [address] [place], [place] [id number] Lauri Nascimento Neutrophils/100 WBC (Bld) 68.6 % Normal 43.0-75.0 [facility] Comment on above: Performed By: #### E RUR #### [facility] [address] [place], [place] [id number] Lauri Nascimento Platelet mean volume (Bld) [Entitic vol] 11.8 fL Normal 9.5-13.5 [facility] Comment on above: Performed By: #### E RUR #### [facility] [address] [place], [place] [id number] Lauri Pily PLT 190 103/ul Normal 150-450 [facility] Comment on above: Performed By: #### E RUR #### [facility] [address] [place], [place] [id number] Lauri Pily RBC 4.77 106/ul Normal 4.20-5.40 [facility] Comment on above: Performed By: #### E RUR #### [facility] [address] [place], [place] [id number] Lauri Pily WBC 10.8 103/ul Normal 4.0-11.0 [facility] Comment on above: Performed By: #### E RUR #### [facility] [address] [address] Lauri Gavinen PROF 14(COMP METB)on 021 Albumin [Mass/Vol] 3.6 g/dL Normal 3.5-5.0 [facility] Comment on above: Performed By: #### H OMCY #### [facility] [address] [place] [address] Dr. Christian Lebron Albumin/Globulin [Mass ratio] 1.0 {ratio} Normal [facility] Comment on above: Performed By: #### H OMCY #### [facility] [address] [place] [address] Dr. Christian Lebron ALP [Catalytic activity/Vol] 74 U/L Normal 38-126 [facility] Comment on above: Performed By: #### H OMCY #### [facility] [address] [place] [address] Dr. Christian Lebron ALT [Catalytic activity/Vol] 19 U/L Normal 9-52 [facility] Comment on above: Performed By: #### H OMCY #### [facility] [address] [place] [address] Dr. Christian Lebron Anion gap [Moles/Vol] 11.7 mmol/L Normal [facility] Comment on above: Performed By: #### H OMCY #### [facility] [address] [place] [address] Dr. Christian Lebron AST [Catalytic activity/Vol] 16 U/L Normal 14-36 [facility] Comment on above: Performed By: #### H OMCY #### [facility] [address] [place] [address] Dr. Christian Lebron Bilirubin [Mass/Vol] 0.4 mg/dL Normal 0.2-1.3 [facility] Comment on above: Performed By: #### H OMCY #### [facility] [address] [place] [address] Dr. Christian Lebron Calcium [Mass/Vol] 9.3 mg/dL Normal 8.4-10.2 [facility] Comment on above: Performed By: #### H OMCY #### [facility] [address] [address] [address] Christian Lebron Chloride [Moles/Vol] 107 mmol/L Normal 98-107 [facility] Comment on above: Performed By: #### H OMCY #### [facility] [address] [address] [address] Christian Lebron CO2 [Moles/Vol] 26.0 mmol/L Normal 22.0-30.0 [facility] Comment on above: Performed By: #### H OMCY #### [facility] [address] [address] [address] Christian Lebron Creatinine [Mass/Vol] 1.63 mg/dL Critically high 0.52-1.04 [facility] Comment on above: Performed By: #### H OMCY #### [facility] [address] [place] [address] Dr. Christian Lebron EGFR-AF CROATIAN 37 mL/min/1.73m2 Critically low >=60 [facility] Comment on above: Performed By: #### H OMCY #### [facility] [address] [place] [address] Dr. Christian Lebron EGFR-NON AF CROATIAN 30 mL/min/1.73m2 Critically low >=60 [facility] Comment on above: Performed By: #### H OMCY #### [facility] [address] [place] [address] Dr. Christian Lebron Globulin (S) [Mass/Vol] 3.7 g/dL Normal [facility] Comment on above: Performed By: #### H OMCY #### [facility] [address] [address] [address] Christian Leborn Glucose [Mass/Vol] 96 mg/dL Normal 74-106 [facility] Comment on above: Performed By: #### H OMCY #### [facility] [address] [place] [address] Dr. Christian Lebron Potassium [Moles/Vol] 3.7 mmol/L Normal 3.4-5.0 [facility] Comment on above: Performed By: #### H OMCY #### [facility] [address] [address] [address] Christian Lebron Protein [Mass/Vol] 7.3 g/dL Normal 6.1-8.2 [facility] Comment on above: Performed By: #### H OMCY #### [facility] [address] [address] [address] Christian Lebron Sodium [Moles/Vol] 141 mmol/L Normal 137-145 [facility] Comment on above: Performed By: #### H OMCY #### [facility] [address] [address] [address] Christian Lebron Urea nitrogen [Mass/Vol] 31.0 mg/dL Critically high 7.0-17.0 [facility] Comment on above: Performed By: #### H OMCY #### [facility] [address] [place] [address] Dr. Christian Lebron Urea nitrogen/Creatinine [Mass ratio] 19.0 mg/mg Normal [facility] Comment on above: Performed By: #### H OMCY #### [facility] [address] [address] [address] Christian Lebron PROTIMEon 01-31-2021 INR Coag (PPP) [Relative time] {INR} Normal [facility] Comment on above: Performed By: #### H OMCY #### [facility] [address] [place] [address] Dr. Christian Lebron INR GUIDELINES SEE BELOW Normal [facility] Comment on above: Result Comment: EVER RED INR: 2.0 - 3.0 CONDITIONS NOT LISTED BELOW 2.5 - 3.5 FOR PROSTHETIC HEART VALVE REPLACEMENT 2.5 - 3.5 RECURRENT THROMBOSIS Performed By: #### H OMCY #### [facility] [address] [place] [address] Dr. Christian Lebron PT Coag (PPP) [Time] 10.0 s Normal 9.0-11.6 [facility] Comment on above: Performed By: #### H OMCY #### [facility] [address] [place] [address] Dr. Christian Lebron PTTon 01-31-2021 aPTT Coag (Bld) [Time] 28.2 s Normal 22.3-36.2 [facility] Comment on above: Performed By: #### H OMCY #### [facility] [address] [address] [address] Christian Lebron TROPONIN, HIGH SENSITIVITYon 01-31-2021 HSTROP 15.5 pg/mL Normal 4.0-35.5 [facility] Comment on above: Result Comment: CUT- OFF POINTS HAVE BEEN ESTABLISHED BASED ON THE FOURTH UNIVERSAL DEFINITIONS OF MYOCARDIAL INFARCTION. THE UPPER REFERENCE LIMIT (URL) OF TROPONIN, DEFINED THE 99TH PERCENTILE OF cTnI DISTRIBUTION IN A REFERENCE POPULATION, HAS BEEN CONFIRMED THE DECISION THRESHOLD FOR RI DIAGNOSIS. Performed By: #### H OMCY #### [facility] [address] [place] [address] Dr. Christian Lebron TSHon 01-31-2021 TSH 3.025 uIU/mL Normal 0.470-4.68 0 [facility] Comment on above: Performed By: #### H OMCY #### [facility] [address] [address] [address] Christian Lebron TSH RANGE SEE BELOW Normal [facility] Comment on above: Result Comment: <0.3 4 UIU/ml HYPERTHYROID 0.34-5.60 UIU/ml EUTHYROID >5.60 UIU/ml HYPOTHYROID Performed By: #### H OMCY #### [facility] [address] [address] [address] Christian Lebron Vital Signs Date Time Vital Sign Value Performing Clinician Facility 03-17-2024 [id number] Body height 167.6 cm Abdulaziz Alvarez MD Work Phone: [facility] 03-17-2024 11:21-0400 Diastolic blood pressure 52 mm[Hg] Abdulaziz Alvarez MD Work Phone: [facility] 03-17-2024 11:21-0400 Heart rate 79 /min Abdulaziz Alvarez MD Work Phone: [facility] 03-17-2024 11:21-0400 Systolic blood pressure 130 mm[Hg] Abdulaziz Alvarez MD Work Phone: [facility] 11-14-2023 17:04-0500 Body height 162.6 cm Ismael Aquino DPM Work Phone: [facility] 11-14-2023 17:04-0500 Body mass index (BMI) [Ratio] 29.52 kg/m2 Ismael Aquino DPM Work Phone: [facility] 11-14-2023 17:04-0500 Body weight 78.02 kg Ismael Aquino DPM Work Phone: [facility] 11-14-2023 17:04-0500 Diastolic blood pressure 80 mm[Hg] Ismael Aquino DPM Work Phone: [facility] 11-14-2023 17:04-0500 Heart rate 77 /min Ismael Aquino DPM Work Phone: [facility] 11-14-2023 17:04-0500 Systolic blood pressure 123 mm[Hg] Ismael Aquino DPM Work Phone: [facility] 09-26-2023 12:00-0500 Body height 167.64 cm Sergio Escudero Other [employer] Other 09-26-2023 12:00-0500 Body mass index (BMI) [Ratio] 25.01 kg/m2 Sergio Escudero Other [employer] Other 09-26-2023 12:00-0500 Body temperature 96.1 [degF] Sergio Escudero Other [employer] Other 09-26-2023 12:00-0500 Body weight 70.31 kg Sergio Escudero Other [employer] Other 09-26-2023 12:00-0500 Diastolic blood pressure 62 mm[Hg] Sergio Escudero Other [employer] Other 09-26-2023 12:00-0500 SaO2% (BldA) [Mass fraction] 99 % Sergio Kinglucita Other [employer] Other 09-26-2023 12:00-0500 Systolic blood pressure 120 mm[Hg] Sergio Kota Other [employer] Other 03-20-2023 11:30-0400 Body height 167.64 cm Raysa Gibbonsshanice Other [employer] Other 03-20-2023 11:30-0400 Body mass index (BMI) [Ratio] 25.01 kg/m2 Raysa Gibbonsshanice Other [employer] Other 03-20-2023 11:30-0400 Body temperature 97.8 [degF] Raysa Robins Other [employer] Other 03-20-2023 11:30-0400 Body weight 70.31 kg Raysa Robins Other [employer] Other 03-20-2023 11:30-0400 Diastolic blood pressure 86 mm[Hg] Raysa Julienne Other [employer] Other 03-20-2023 11:30-0400 SaO2% (BldA) [Mass fraction] 99 % Raysa Gibbonsshanice Other [employer] Other 03-20-2023 11:30-0400 Systolic blood pressure 122 mm[Hg] Raysa Julienne Other [employer] Other 09-21-2022 12:15-0500 Body height 167.64 cm Abdulaziz Alvarez MD Work Phone: [facility] DO Work Phone: 09-21-2022 12:15-0500 Body mass index (BMI) [Ratio] 24.05 kg/m2 Abdulaziz Alvarez MD Work Phone: [facility] 250 DO Work Phone: 09-21-2022 12:15-0500 Body surface area Derived from formula 1.76 m2 Abdulaziz Alvarez MD Work Phone: [facility] 250 DO Work Phone: 09-21-2022 12:15-0500 Body weight 67.59 kg Abdulaziz Alvarez MD Work Phone: [facility] 250 DO Work Phone: 09-21-2022 12:15-0500 Diastolic blood pressure 78 mm[Hg] Abdulaziz Alvarez MD Work Phone: [facility] 250 DO Work Phone: 09-21-2022 12:15-0500 Heart rate 84 /min Abdulaziz Alvraez MD Work Phone: [facility] 250 DO Work Phone: 09-21-2022 12:15-0500 Systolic blood pressure 126 mm[Hg] Abdulaziz Alvarez MD Work Phone: [facility] 250 DO Work Phone: 09-12-2022 11:45-0500 Body height 167.64 cm Sergio Escudero Other [facility] [employer] Other 09-12-2022 11:45-0500 Body mass index (BMI) [Ratio] 27.44 kg/m2 Sergio Escudero Other [employer] Other 09-12-2022 11:45-0500 Body temperature 97.8 [degF] Sergio Kinglucita Other [employer] Other 09-12-2022 11:45-0500 Body weight 77.11 kg Sergio Kinglucita Other [employer] Other 09-12-2022 11:45-0500 Diastolic blood pressure 68 mm[Hg] Sergio Kinglucita Other [employer] Other 09-12-2022 11:45-0500 SaO2% (BldA) [Mass fraction] 98 % Sergio Kinglucita Other [employer] Other 09-12-2022 11:45-0500 Systolic blood pressure 116 mm[Hg] Sergio Kinglucita Other [employer] Other 08-14-2022 12:47-0500 Diastolic blood pressure 71 mm[Hg] DO Edward Bernstein Work Phone: [facility] 08-14-2022 12:47-0500 Systolic blood pressure 177 mm[Hg] DO Edward Bernstein Work Phone: [facility] 08-14-2022 12:00-0500 Body temperature 98.3 [degF] DO Edward Bernstein Work Phone: [facility] 08-14-2022 12:00-0500 Heart rate 79 /min DO Edward Bernstein Work Phone: [facility] 08-14-2022 12:00-0500 Respiratory rate 16 /min DO Edward Bernstein Work Phone: [facility] 08-14-2022 12:00-0500 SaO2% (BldA) [Mass fraction] 98 % DO Edward Bernstein Work Phone: [facility] 08-14-2022 04:50-0500 Body weight 66.6 kg DO Edward Bernstein Work Phone: [facility] 08-13-2022 20:45-0500 Body temperature 97.8 [degF] DO Edward Bernstein Work Phone: [facility] 08-13-2022 20:45-0500 Diastolic blood pressure 68 mm[Hg] DO Edward Bernstein Work Phone: [facility] 08-13-2022 20:45-0500 Heart rate 80 /min DO Edward Bernstein Work Phone: [facility] 08-13-2022 20:45-0500 Respiratory rate 20 /min DO Edward Bernstein Work Phone: [facility] 08-13-2022 20:45-0500 SaO2% (BldA) [Mass fraction] 99 % DO Edward Bernstein Work Phone: [facility] 08-13-2022 20:45-0500 Systolic blood pressure 188 mm[Hg] DO Edward Bernstein Work Phone: [facility] 08-13-2022 11:50-0500 Body height 167.64 cm DO Edward Bernstein Work Phone: [facility] 08-13-2022 06:00-0500 Body weight 68.8 kg DO Edward Bernstein Work Phone: [facility] Encounters Encounter Date Encounter Type Care Provider Facility Start: 04-01-2024 End: 04-01-2024 ambulatory KALI MAHARAJ Not Available Start: 03-23-2024 End: 03-23-2024 ambulatory SOFIA CONROY Not Available Start: 03-17-2024 End: 03-17-2024 ambulatory [facility] Start: 03-17-2024 End: 03-17-2024 Encounter for other preprocedural examination [facility] Start: 03-17-2024 End: 03-17-2024 Office outpatient visit 25 minutes Abdulaziz Alvarez MD Work Phone: [facility] Comment on above: Pre-op evaluation (P rimary Dx); Primary hypertension; Hyperlipidemia, unspecified hyperlipidemia type; Stenosis of carotid artery, unspecified laterality; Former smoker; halfway resident; History of syncope Start: 03-17-2024 End: 03-17-2024 Preprocedural examination done Abdulaziz Alvarez MD Work Phone: [facility] Work Phone: Start: 03-13-2024 End: 03-13-2024 ambulatory PILY YAÑEZ Not Available Start: 01-29-2024 End: 01-29-2024 ambulatory KALI MAHARAJ Not Available Start: 01-21-2024 End: 01-21-2024 ambulatory YULIA D BEJ Not Available Start: 11-14-2023 End: 11-14-2023 ambulatory ISMAEL AQUINO Not Available Start: 11-14-2023 End: 11-14-2023 Patient encounter procedure Ismael Aquino DPM Work Phone: [facility] Comment on above: PVD (peripheral vasc ular disease) (CMS/[facility]) (Primary Dx); Onychomycosis; Toe pain, left; Toe [...] [facility] V[facility] Surgery Start: 09-26-2023 End: 09-26-2023 Patient encounter procedure II Kali Maharaj Work Phone: [facility] Start: 09-26-2023 End: 09-26-2023 ambulatory II Kali Maharaj Work Phone: [facility] Other Start: 03-20-2023 End: 03-20-2023 Patient encounter procedure Raysa Robins [facility] Vascular Surgery Start: 03-20-2023 End: 03-20-2023 ambulatory II Kali Maharaj Work Phone: [facility] Other Start: 03-13-2023 ambulatory Abdulaziz Alvarez Facility : Start: 11-10-2022 Chart Update Abdulaziz Alvarez MD Work Phone: [facility] 250 DO Work Phone: Start: 10-30-2022 Telephone encounter Abdulaziz day MD Work Phone: [facility] 600 DO Work Phone: Start: 10-22-2022 Patient encounter procedure Abdulaziz Alvarez MD Work Phone: [facility] 250 DO Work Phone: Start: 09-21-2022 ambulatory Abdulaziz Alvarez Facility : Start: 09-21-2022 Office outpatient vi sit 25 minutes Abdulaziz Alvarez MD Work Phone: [facility] 250 DO Work Phone: Start: 09-18-2022 Chart Update Abdulaziz Alvarez MD Work Phone: [facility] 250 DO Work Phone: Start: 09-14-[address] Kali Maharaj II Facility:[id number] Start: 09-12-2022 End: 09-12-2022 ambulatory Sergio Escudero Other [facility] Other Start: 09-12-2022 Office outpatient vi sit 15 minutes Sergio Escudero [facility] V[facility] Start: 08-14-2022 ambulatory Cintron Alvarez Facility :[id number] Start: 08-14-2022 Patient encounter procedure DO Edward Bernstein Work Phone: [facility] Start: 08-13-2022 End: 08-13-2022 ambulatory DO Edward Bernstein Work Phone: [facility] Work Phone: Start: 08-13-2022 End: 08-13-2022 Patient encounter procedure DO Edward Bernstein Work Phone: [facility] Start: 08-12-2022 ambulatory Cintron Alvarez Facility :[id number] Start: 08-11-2022 ambulatory Cintron Alvarez Facility :[id number] Start: 08-10-2022 ambulatory Cintron Alvarez Facility :[id number] Start: 08-10-2022 End: 08-14-2022 Evaluation and management of inpatient DO Edward Bernstein Work Phone: [facility] Start: 12-26-2021 End: 12-26-2021 ambulatory Jhonatan Oakes Other [facility] Other Start: 12-26-2021 Telephone encounter Jhonatan Oakes [facility] Vascular Surgery Start: 2021 End: 08-24-2021 ambulatory YULIA MCCRAY Facility:H1 Start: 07-10-2021 End: 07-11-[address] KALI MAHARAJ Facility:H1 Start: 07-03-[address] KALI MAHARAJ Facilit y:H1 Start: 02-08-2021 End: 03-08-[address] KALI MAHARAJ Facility:H1 Start: 02-01-2021 End: 02-02-2021 ambulatory LULU FRIEDMAN Facility:H1 Start: 01-31-2021 End: 02-01-2021 ambulatory UN[facility] PROVIDER [facility] Start: 12-05-[address] MAX Whyte ility:H1 Start: 09-04-2018 End: 09-05-2018 Patient encounter procedure DEFAULT PHYSICIAN Facility:[facility] Procedures Date Procedure Procedure Detail Performing Clinician Start: 03-17-2024 Ecg routine ecg w/le ast 12 lds w/i&r Abdulaziz Alvarez MD Work Phone: Start: 09-26-2023 Doppler ultrasonogra phy of bilateral [...] Treatment Date Care Activity Detail Author Start: 03-17-2025 End: 03-17-2025 Patient encounter procedure 03/17/2025 11:00 AM EDT Office Visit [address] [place] [address] Abdulaziz Alvarez MD [address] [facility], [address] [place] [address] [facility] Start: 02-17-2024 End: 02-17-2024 Patient encounter procedure 02/17/2024 1:15 PM EDT Office Visit [facility] [address] [facility] [address] [place] [id number] Kali Maharaj MD [address] [facility] 110 [place] [address] [facility] Start: 01-23-2024 End: 01-23-2024 Patient encounter procedure 01/23/2024 4:10 PM EDT Procedure Visit [facility] [address] [facility] [address] [place] [address] Ismael Aquino DPM [address] [address] [facility] Start: 12-10-2023 End: 12-10-2023 Patient encounter procedure 12/10/2023 2:00 PM EST Office Visit [facility] [address] [facility] [address] [place] [phone] Yulia Mccray MD 53[address] [facility] 111 [place], [place] [id number] [facility] Start: 11-21-2023 Medicare Annual Wellness (AWV) Medicare Annual Wellness (AWV) [facility] Start: 11-14-2023 End: 11-14-2023 Patient encounter procedure 11/14/2023 4:50 PM EST Procedure Visit [facility] [address] [facility] [address] [place] [address] Ismael Aquino DPM [address] [address] [facility] Start: 11-11-2023 End: 11-11-2023 Patient encounter procedure 11/11/2023 1:50 PM EST Procedure Visit [facility] 3006 [place] [phone] Ismael Aquino DPM [address] [address] [facility] Start: 08-10-2023 Echocardiography Echocardiogram [facility] Start: 06-07-2023 COVID-19 Vaccine () COVID-19 Vaccine () [facility] Start: 03-20-2023 Doppler ultrasonography of bilateral carotid arteries US carotid doppler BI [facility] Start: 03-20-2023 US.doppler Carotid arteries - bilateral [facility] Start: 03-13-2023 FUV, Provider: Abdulaziz Alvarez, Status: Pen, Time: 11:50 AM FUV, Provider: Abdulaziz Alvarez, Status: Pen, Time: 11:50 AM [facility] 250 DO Work Phone: Start: 09-21-2022 FUV, Provider: Abdulaziz Alvarez, Status: Pen, Time: 11:50 AM FUV, Provider: Abdulaziz Alvarez, Status: Pen, Time: 11:50 AM [facility] 250 DO Work Phone: Start: 08-14-2022 [facility] Start: 08-13-2022 [facility] Start: 08-12-2022 Referral to vascular surgeon [facility] Start: 08-10-2022 Hospital admission [facility] Start: 08-10-2022 [facility] Start: 08-30-2020 Zoster Vaccines (2 of 2) Zoster Vaccines (2 of 2) [facility] Start: 2000 RSV patients and/or patients aged 60+ years (1 - 1-dose 60+ series) RSV patients and/or patients aged 60+ years (1 - 1-dose 60+ series) [facility] Start: 1962 DTaP/Tdap/Td Vaccines (1 - Tdap) DTaP/Tdap/Td Vaccines (1 - Tdap) [facility] Start: 1940 Creatinine measurement Creatinine Level [facility] Start: 1940 Lipid panel Lipid Panel [facility] Start: 1940 Medicare Annual Wellness Visit Medicare Annual Wellness Visit (AWV) [facility] Start: 1940 Potassium measurement Potassium Level [facility] Start: 1940 Thyroid stimulating hormone measurement TSH Level [facility] Patient Education Carotid Artery Disease Carotid Artery Disease (DC) [facility] Work Phone: Patient referral [facility] Work Phone: Immunizations Immunization Date Immunization Notes Care Provider [facility] 08-12-2023 Influenza, High-dose Seasonal, Quadrivalent, Preservative Free Ismael Aquino DPM Work Phone: [facility] 09-21-2022 Moderna SARS-CoV-2 Booster Vaccination Ismael Aquino DPM Work Phone: [facility] 07-27-2022 Fluzone High-Dose Quadrivalent 0.7 ML Intramuscular Suspension Prefilled Syringe Abdulaziz Alvarez MD Work Phone: [facility] 05-08-2022 Moderna COVID-19 Vac cine 100 MCG/0.5ML Intramuscular Suspension Abdulaziz Alvarez MD Work Phone: [facility] 250 DO Work Phone: 08-07-2021 influenza, high dose seasonal, preservative-free Abdulaziz Alvarez MD Work Phone: [facility] 250 DO Work Phone: 08-04-2021 Moderna COVID-19 Vac cine 100 MCG/0.5ML Intramuscular Suspension Abdulaziz Alvarez MD Work Phone: [facility] 250 DO Work Phone: 11-23-2020 Moderna COVID-19 Vac cine 100 MCG/0.5ML Intramuscular Suspension Abdulaziz Alvarez MD Work Phone: [facility] 250 DO Work Phone: 10-21-2020 Moderna COVID-19 Vac cine 100 MCG/0.5ML Intramuscular Suspension Abdulaziz Alvarez MD Work Phone: [facility] 250 DO Work Phone: 07-05-2020 zoster vaccine recombinant Abdulaziz Alvarez MD Work Phone: [facility] 07-01-2020 influenza, high dose seasonal, preservative-free Abdulaziz Alvarez MD Work Phone: [facility] 250 DO Work Phone: 07-01-2020 Influenza, High-dose Seasonal, Quadrivalent, Preservative Free Ismael Aquino DPM Work Phone: [facility] 06-22-2019 Seasonal trivalent influenza vaccine, adjuvanted, preservative free Abdulaziz Alvarez MD Work Phone: [facility] 07-21-2018 influenza, high dose seasonal, preservative-free Abdulaziz Alvarez MD Work Phone: [facility] 250 DO Work Phone: 06-06-2018 influenza, high dose seasonal, preservative-free Abdulaziz Alvarez MD Work Phone: [facility] 06-18-2017 influenza, high dose seasonal, preservative-free Abdulaziz Alvarez MD Work Phone: [facility] 06-18-2017 pneumococcal polysaccharide vaccine, 23 valent Abdulaziz Alvarez MD Work Phone: [facility] 07-13-2016 influenza, high dose seasonal, preservative-free Abdulaziz Alvarez MD Work Phone: [facility] 07-23-2015 pneumococcal conjuga te vaccine, 13 valent Abdulaziz Alvarez MD Work Phone: [facility] 07-07-2015 influenza, injectabl e, quadrivalent, preservative free Ismael Aquino DPM Work Phone: [facility] 07-03-2013 influenza, seasonal, injectable, preservative free Ismael Aquino DPM Work Phone: [facility] 10-07-2010 pneumococcal polysaccharide vaccine, 23 valent Ismael Aquino DPM Work Phone: [facility] 07-20-2010 seasonal influenza, intradermal, preservative free Ismael Aquino DPM Work Phone: [facility] Payers Date Payer Category Payer Medicaid MEDICAID MEDICAI D [id number] 2023-Present [address] [place] [address] [id number] 2023 Medicaid [id number] 2017 Medicare [id number] 1959 Private Health Insurance [id number] 1959 Self-pay 1940 Unknown [id number] 2.16.840.1.606349.3.579.2. 647 1940 Unknown [id number] 2.16.840.1.983234.3.579.2. 732 1940 Unknown [id number] 2.16.840.1.738374.3.579.2. 593 1940 Unknown [id number] 2.16.840.1.587852.3.579.2. 593 1940 Unknown [id number] 2.16.840.1.851440.3.579.2. 593 1940 Unknown [id number] 2.16.840.1.562461.3.579.2. 593 1940 Unknown [id number] 2.16.840.1.209455.3.579.2. 593 1940 Unknown [id number] 2.16.840.1.837962.3.579.2. 593 1940 Unknown [id number] 2.16.840.1.809795.3.579.2. 593 1940 Unknown [id number] 2.16.840.1.802525.3.579.2. 356 1940 Unknown [id number] 2.16.840.1.356694.3.579.2. 356 1940 Unknown [id number] 2.16.840.1.127705.3.579.2. 356 1940 Unknown [id number] 2.16.840.1.472286.3.579.2. 356 1940 Unknown [id number] 2.16.840.1.436015.3.579.2. 356 194 Unknown [id number] 2.16.840.1.191514.3.579.2. 356 1940 Unknown [id number] 2.16.840.1.942647.3.579.2. 356 1940 Unknown [id number] 2.16.840.1.035732.3.579.2. 356 1940 Unknown [id number] 2.16.840.1.471435.3.579.2. 1244 1940 Unknown [id number] 2.16.840.1.757959.3.579.2. 1259 1940 Unknown [id number] 2.16.840.1.856628.3.579.2. 1259 1940 Unknown [id number] 2.16.840.1.260575.3.579.2. 1259 1940 Unknown [id number] 2.16.840.1.240246.3.579.2. 1259 1940 Unknown [id number] 2.16.840.1.537605.3.579.2. 1259 1940 Unknown [id number] 2.16.840.1.733960.3.579.2. 1259 0 Unknown [id number] 2.16.840.1.345553.3.579.2. 1259 1940 Unknown [id number] 2.16.840.1.011810.3.579.2. 1259 Medicare Medicare [id number] Unknown Unknown Insurance No Card [id number] Unknown [id number] 2.16.840.1.439191.3.579.2. 531 Social History Date Type Detail Facility Start: 10-16-2023 End: 03-17-2024 Sex Assigned At [facility] Start: 08-13-2022 End: 08-13-2022 Tobacco smoking status FLIS Smoker (finding) [facility] Start: 1940 Sex Assigned At Female F [facility] Start: 10-16-2023 End: 03-17-2024 Consumes alcohol occasionally Consumes alcohol occasionally [facility] 250 DO Work Phone: Comment on above: coffee 1 cup daily; 1 pack per week; Start: 10-07-1987 Tobacco smoking stat [facility] Smokes tobacco daily [facility] Start: 10-07-1987 History of tobacco use Cigarette Smo ker [facility] History of tobacco use Passive smoker [facility] Start: 04-08-2023 End: 03-17-2024 Tobacco use and exposure Smokeless tobacco non-user [facility] Start: 10-16-2023 End: 11-14-2023 Alcohol intake Lifetime non-drinker (finding) [facility] Start: 1940 Sex Assigned At Not on file [facility] Start: 11-14-2023 Alcohol Comment caffeine intak e: 1-2 cups per day [facility] Start: 03-17-2024 [facility] Work Phone: Start: 03-17-2024 Alcoholic beverage intake Current drinker of alcohol (finding) [facility] Work Phone: Start: 03-17-2024 Alcohol Comment every so often [facility] Work Phone: Start: 03-07-2024 End: 03-17-2024 Exposure to SARS-CoV-2 (event) Not sure [facility] Goals Date Patient Goal Desired Activity /State Functional Status Date Assessment Result Facility 08-14-2022 Functional status Patient at Baseline [facility] Work Phone: 08-10-2022 Functional status Patient at Baseline [facility] Work Phone: Mental Status Date Assessment Result Facility 08-14-2022 Cognitive function Cognitive Sta tus Patient at Baseline [facility] Work Phone: 08-10-2022 Cognitive function Cognitive Sta tus Patient at Baseline [facility] Work Phone: Clinical Notes 08-10-2022 to 03-17-2024 Abdulaziz Alvarez MD - 03/17/2024 11:00 AM EDTPatient Verito Aquino DPM - 11/14/2023 4:50 PM EST Note Date & Type Note Facility 03-17-2024 History of Presen t illness Narrative Subjective Carley Quintanilla is a 83 y.o. female Chief Complaint Follow-up HPI Patient is in the office for follow-up for the problems noted below and need cardiac clearance prior to ovarian cyst removal scheduled for tomorrow. She is presently living in assisted living and came with a staff member. She reports no chest pain or dyspnea no orthopnea PND or lower extremity edema. She is currently not smoking. She had abdominal pain caused by the ovarian cyst. Her vital signs are normal EKG revealed normal sinus rhythm with no acute changes. She will be cleared for the surgery without any reservation from a cardiac standpoint. Assessment/recommendations: 1-patient need cardiac clearance prior to ovarian cyst removal, her cardiac risks are low and she will be cleared for surgery without reservations. 2-history of syncope with no obvious cause. We believe bradycardia arrhythmias may have been a factor and therefore agent that control heart rate were eliminated. 30-day event monitor revealed no arrhythmias. No further cardiac actions needed. Echocardiogram August 2022 was normal 3-carotid disease confirmed by ultrasound, currently asymptomatic. Continue secondary prevention measures 3-essential hypertension, currently under control using amlodipine and hydralazine with lisinopril 4-hyperlipidemia on simvastatin. Review of Systems Cardiovascular: Positive for leg swelling. All other systems reviewed and are negative. Vitals: 03/17/24 1121 BP: 130/52 BP Location: Left arm Patient Position: Sitting Pulse: 79 Height: 1.676 m (5' 6 ) EKG done in office today Objective Physical Exam Constitutional: Appearance: Normal appearance. HENT: Nose: Nose normal. Neck: Vascular: No carotid bruit. Cardiovascular: Rate and Rhythm: Normal rate. Pulses: Normal pulses. Heart sounds: Normal heart sounds. Pulmonary: Effort: Pulmonary effort is normal. Abdominal: General: Bowel sounds are normal. Palpations: Abdomen is soft. Musculoskeletal: General: Normal range of motion. Cervical back: Normal range of motion. Right lower leg: No edema. Left lower leg: No edema. Skin: General: Skin is warm and dry. Neurological: General: No focal deficit present. Mental Status: She is alert. Psychiatric: Mood and Affect: Mood normal. Behavior: Behavior normal. Thought Content: Thought content normal. Judgment: Judgment normal. Allergies Patient has no known allergies. Current Medications Current Outpatient Medications: alendronate (Fosamax) 70 mg tablet, Take 1 tablet weekly 30 min prior to the first food of the day, Disp: , Rfl: amLODIPine (Norvasc) 10 mg tablet, 1 (one) time each day at the same time., Disp: , Rfl: CertaVite Senior 0.4 mg-300 mcg- 250 mcg, 1 tablet once daily., Disp: , Rfl: hydrALAZINE (Apresoline) 25 mg tablet, TAKE 1 TABLET BY MOUTH THREE TIMES A DAY WITH FOOD FOR 90 DAYS, Disp: , Rfl: levothyroxine (Synthroid, Levoxyl) 75 mcg tablet, 1 (one) time each day at the same time., Disp: , Rfl: lisinopriL-hydrochlorothiazide 20-12.5 mg tablet, Take 1 tablet by mouth twice a day., Disp: , Rfl: Oyster Shell Calcium-Vit D3 500 mg-10 mcg (400 unit) tablet, 1 tablet 2 times a day., Disp: , Rfl: pantoprazole (ProtoNix) 40 mg EC tablet, Take 1 tablet (40 mg) by mouth once daily., Disp: , Rfl: PARoxetine (Paxil) 20 mg tablet, Take 1 tablet (20 mg) by mouth once daily at bedtime., Disp: , Rfl: aspirin 81 mg EC tablet, Take 1 tablet (81 mg) by mouth., Disp: , Rfl: simvastatin (Zocor) 20 mg tablet, Take 1 tablet (20 mg) by mouth once daily at bedtime., Disp: , Rfl: Assessment/Plan 1. Pre-op evaluation ECG 12 Lead 2. Primary hypertension Follow Up In Cardiology 3. Hyperlipidemia, unspecified hyperlipidemia type 4. Stenosis of carotid artery, unspecified laterality 5. Former smoker 6. halfway resident Scribe Attestation By signing my name below, I, Cait Hawkins LPN , [place] attest that this documentation has been prepared under the direction and in the presence of Abdulaziz Alvarez MD. Provider Attestation - Scribe documentation All medical record entries made by the Scribe were at my direction and personally dictated by me. I have reviewed the chart and agree that the record accurately reflects my personal performance of the history, physical exam, discussion and plan. documented in this encounter [facility] Work Phone: 03-17-2024 Instructions Cait Morrow LPN - 03/17/2024 11:00 AM EDT Please bring all medicines, vitamins, and herbal supplements with you when you come to the office. Prescriptions will not be filled unless you are compliant with your follow up appointments or have a follow up appointment scheduled as per instruction of your physician. Refills should be requested at the time of your visit. Carley Quintanilla is clear for surgery from a cardiac standpoint Follow up one year Same medications documented in this encounter [facility] Work Phone: 11-14-2023 History of Presen t illness Narrative [...] Ismael Aquino DPM documented in this encounter [facility] 09-26-2023 Evaluation note Encounter Date Diagnosis Assessment Notes Sep, Asymptomatic stenosis of right carotid artery (ICD-10 - I65.21) I recommend seeing this patient back in 1 year. I admonished her for smoking and offered her free resources to quit by the [facility]. She refused. There is no indication for any surgical intervention at this time. [facility] Other 06-14-2023 Evaluation note* Encounter Date Diagnosis [...] issues prior to her next scheduled appointment. [facility] Other 12-07-2022 Evaluation note* Encounter Date Diagnosis [...] for results in the next few weeks. 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 Instructions: Carotid Artery [...] <Electronically signed by Dee Kenney MD> 08/14/22 1573 [facility] Work Phone: 1(692) 223-775311-08-2022 Progress note Author Sergio Escudero [facility] August 14, 2022 11:52am Note Date/Time August 14, 2022 1 0:02am [facility] [address] [place] [address] Vascular Surgery Progress Note Signed with Addosmar Patient: Carley Quintanilla MR#: [id number] : 1940 Acct:[id number] Age/Sex: 81 / F Adm Date: 2 Loc: Room: [address] [place] [address] Type: ADM IN Attending Dr: Dee Kenney [...] signed by Sergio Escudero MD> 08/14/22 1002 [facility] Work Phone: 1(289) 536-273311-07-2022 Progress note Author Dee Kenney [facility] August 13, 2022 12:59pm Note Date/Time August 13, 2022 1 2:44pm [facility] [address] [place] [address] Hospitalist Progress Note Signed Patient: Carley Quintanilla MR#: [id number] : 1940 Acct:[id number] Age/Sex: 81 / F Adm Date: 2 Loc: Room: [address] [place] [address] Type: ADM IN Attending Dr: Dee Kenney [...] Patch.Td24 TRANSDERML 08/11/23 08:59 Not Given DAILY [facility] Omeprazole 20 mg 08/11/22 09:00 08/13/22 11:45 [...] <Electronically signed by Dee Kenney MD> 08/13/22 1258 [facility] Work Phone: 1(333) 581-941011-07-2022 Progress note Author Abdulaziz Alvarez [facility] August 13, 2022 11:03am Note Date/Time August 13, 2022 1 1:03am [facility] [address] [place] [address] Cardiology Progress Note Signed Patient: Carley Quintanilla MR#: [id number] : 1940 Acct:[id number] Age/Sex: 81 / F Adm Date: 2 Loc: Room: [address] [place] [address] Type: ADM IN Attending Dr: Dee Kenney [...] 2 1100 Signed By: <Electronically signed by [facility] Abdulaziz Alvarez> 08/13/22 1103 [facility] Work Phone: 1(691) 453-633211-07-2022 Consult note Author Sergio Escudero [facility] August 13, 2022 9:29am Note Date/Time August 13, 2022 8 :53am [facility] [address] [place] [address] Vascular Surgery Consult Note Signed Patient: Carley Quintanilla MR#: [id number] : 1940 Acct:[id number] Age/Sex: 81 / F Adm Date: 2 Loc: Room: [address] [place] [address] Type: ADM IN Attending Dr: Dee Kenney [...] negative unless noted below or in HPI [facility] Vaccinated for COVID-19?: Yes Medical History HTN [...] signed by Sergio Escudero MD> 08/13/22 0929 [facility] Work Phone: 1(727) 203-242211-06-2022 Progress note Author Dee Kenney [facility] August 12, 2022 4:23pm Note Date/Time August 12, 2022 4 :18pm [facility] [address] [place] [address] Hospitalist Progress Note Signed Patient: Carley Quintanilla MR#: [id number] : 1940 Acct:[id number] Age/Sex: 81 / F Adm Date: 2 Loc: 4N Room: [address] [place] [address] Type: ADM IN Attending Dr: Dee Kenney [...] 09:00 08/12/22 09:09 Aspirin 81 Mg Tablet.Dr BAZAN 08/11/23 08:59 81 mg DAILY CARRI Administration [...] 1,000 Ml IV 08/10/23 20:29 75 mls/hr .[id number] CARRI Administration Levothyroxine Sodium 75 mcg 08/11/22 [...] signed by Dee Kenney MD> 08/12/22 1623 [facility] Work Phone: 1(992) 965-753611-06-2022 Progress note Author Abdulaziz Alvarez [facility] August 12, 2022 10:01am Note Date/Time August 12, 2022 1 0:01am [facility] [address] [place] [address] Cardiology Progress Note Signed Patient: Carley Quintanilla MR#: [id number] : 1940 Acct:[id number] Age/Sex: 81 / F Adm Date: 2 Loc: Room: [address] [place] [address] Type: ADM IN Attending Dr: Dee Kenney [...] [facility] Abdulaziz Alvarez> 08/12/22 1001 [facility] Work Phone: 1([phone]) 776-751611-05-2022 Progress note Author Dee Kenney [facility] August 11, 2022 2:19pm Note Date/Time August 11, 2022 2 :15pm [facility] [address] [place] [address] Hospitalist Progress Note Signed Patient: Carley Quintanilla MR#: [id number] : 1940 Acct:[id number] Age/Sex: 81 / F Adm Date: 2 Loc: Room: [address] [place] [address] Type: ADM IN Attending Dr: Dee Kenney [...] 1,000 Ml IV 08/10/23 20:29 75 mls/hr .[id number] CARRI Administration Levothyroxine Sodium 75 mcg 08/11/22 [...] signed by Dee Kenney MD> 08/11/22 1419 [facility] Work Phone: 1(171) 278-176011-05-2022 Consult note Author Abdulaziz Alvarez [facility] August 11, 2022 1:13pm Note Date/Time August 11, 2022 1 :09pm [facility] [address] [place] [address] Cardiology Consult Note Signed Patient: Carley Quintanilla MR#: [id number] : 1940 Acct:[id number] Age/Sex: 81 / F Adm Date: 2 Loc: Room: [address] [place] [address] Type: ADM IN Attending Dr: Dee Kenney [...] of hypertensionmanaged with Dr. Kali Maharaj in [facility]. She has been on diltiazem 360 mg daily. The patient has been stable since admission heart rate in the 50s. Diltiazem has been withheld Review of Systems Review of Systems Review of systems: 11 point review of system otherwise was normal. [facility] Vaccinated for COVID-19?: Yes Medical History (Updated [...] Lymph # (Auto) 0.9 L (1.00-4.8) x10E3/uL [place] # (Auto) 0.6 (0.0-0.8) x10E3/uL Eos # [...] 400 / 400 Balance 1080 / 1080 96 / 1959 Intake: IV 1000 / 1000 1000 / 1000 Sodium Chloride 0.9% 1,000 ml 1 1000 / 1000 1000 / 1000 ,000 ml @ 75 mls/hr IV .[id number] [facility] Rx#:[id number] Oral 480 / 480 960 / 960 [...] [facility] Abdulaziz Alvarez> 08/11/22 1313 [facility] Work Phone: [phone] 659-103611-04-2022 History and physical note Author Dee Kenney [facility] August 10, 2022 8:17pm Note Date/Time August 10, 2022 8 :03pm [facility] [address] [place] [address] Hospitalist H&P Signed Patient: Carley Quintanilla MR#: [id number] : 1940 Acct:[id number] Age/Sex: 81 / F Adm Date: 2 Loc: Room: [address] [place] [address] Type: ADM IN Attending Dr: Dee Kenney [...] than mentioned in history of presenting illness [facility] Medical History (Updated 08/10/22 @ 20:14 [...] % (Auto) 9.5 % (.) 08/10/22 17:15 [place] % (Auto) 5.7 % (.) 08/10/22 17:15 Eos % (Auto) 0.7 % (.) 08/10/22 17:15 Baso % (Auto) 0.5 % (.) 08/10/22 17:15 Neut # (Auto) 8.3 x10E3/uL (1.8-7.7) H 08/10/22 17:15 Lymph # (Auto) 0.9 x10E3/uL (1.00-4.8) L 08/10/22 17:15 [place] # (Auto) 0.6 x10E3/uL (0.0-0.8) 08/10/22 17:15 [...] pH 5.5 (5.0-9.0) 08/10/22 19:20 Ur Specific [place] 1.014 (1.001-1.030) 08/10/22 19:20 Urine Protein Negative [...] By: <Electronically signed by Dee Kenney MD> 08/10/22 2017 [facility] Work Phone: Evaluation noteNo InformationNort [employer] Other Evaluation note* Diagnosis Onset Date Resolution Status KRISTAN (acute kidney injury) ac jen Bilateral carotid artery disease acute HTN (hypertension) acute Syncope acute Tobacco abuse acute [facility] Work Phone: Evaluation noteNo assessment information available [facility] Work Phone: evaluation note* Diagnosis PVD (peripheral vascular disease) ([facility])- Primary Unspecified peripheral vascular disease Onychomycosis Dermatophytosis of nail Toe pain, left Pain in soft tissues of limb Toe pain, right Pain in soft tissues of limb Venous insufficiency Unspecified venous (peripheral) insufficiency [facility] Diagnosis Pre-op evaluation- Primary Primary hypertension Unspecified essential hypertension Hyperlipidemia, unspecified hyperlipidemia type Stenosis of carotid artery, unspecified laterality Former smoker Personal history of tobacco use, presenting hazards to [facility] resident History of syncope documented in this encounter [facility] Work Phone: Hishasl general Narrative - Reported* Type Description Date Medical History CAROTID STENOSIS BILATERAL Medical History hypertension Medical History hypercholesterolemia Medical History acid reflux Surgical History Foot Surgery Hospitalization History hypertension from [employer] [place] [employer] Other History general Narrative - Reported* Type Description Date Medical History CAROTID STENOSIS BILATERAL Medical History hypertension Medical History hypercholesterolemia Medical History acid reflux Surgical History Foot Surgery Surgical History tonsillectomy Surgical History cataract Hospitalization History hypertension from [facility] Other Progress note Author Abdulaziz Alvarez [facility] August 14, 2022 5:26pm Note Date/Time August 14, 2022 5 :26pm [facility] [address] [place] [address] Cardiology Progress Note Signed Patient: Carley Quintanilla MR#: [id number] : 1940 Acct:[id number] Age/Sex: 81 / F Adm Date: 2 Loc: 4N Room: 7L1966-4 Type: DIS IN Attending Dr: Dee Kenney [...] signed by MD XENA Alvarez> 08/14/22 1726 [facility] Work Phone: Summary Purpose Family History [...] abuse, encouraged the patient to quit smoking. Reason for Referral Specialty Diagnoses / Procedures Referred By Michael armstrong Referred To Contact Diagnoses Pre-op evaluation Procedures ECG 12 Lead Abdulaziz Alvarez MD [address] [place] [address], [address] [address] Referral ID Status Reason Start Date Expiration Date V isits Requested Visits Authorized [id number] Authorized 03/17/2024 03/17/2025 1 1 Specialty Diagnoses / Procedures Referred By Michael armstrong Referred To Contact Cardiology Diagnoses Primary hypertension Procedures Follow Up In Cardiology Abdulaziz Alvarez MD [address] [place], [place] [address]er [facility] 2, [address] [address] Abdulaziz Alvarez MD [address] [place] [address] 2, [address] [address] Referral ID Status Reason Start Date Expiration Date V isits Requested Visits Authorized [id number] Authorized 03/17/2024 03/17/2025 1 1 Additional Source Comments INFORMATION SOURCE (unrecogn ized section and content) DATE CREATED AUTHOR 09/15/2018 [facility] DATE CREATED AUTHOR AUTHOR'S ORGANIZ ATION 02/02/2021 [facility] DATE CREATED AUTHOR AUTHOR'S ORGANIZ ATION 08/30/2021 [facility] DATE CREATED AUTHOR AUTHOR'S ORGANIZ ATION 09/22/2021 [facility] dical Specialist DATE CREATED AUTHOR AUTHOR'S ORGANIZ ATION 09/28/2022 [employer] DATE CREATED AUTHOR AUTHOR'S ORGANIZ ATION 03/18/2023 [facility] DATE CREATED AUTHOR AUTHOR'S ORGANIZ ATION 03/18/2024 [facility] DATE CREATED AUTHOR AUTHOR'S ORGANIZ ATION 04/01/2024 [facility] DATE CREATED AUTHOR AUTHOR'S ORGANIZ ATION 04/02/2024 [facility] dical Specialists EPIC REASON FOR VISIT (unrecogniz ed section and content) Reason Comments Toenail Care Reason Comments Follow-up Dr. Evelyn CAPPS last s een 09/2022 Specialty Diagnoses / Procedures Referred By Contac t Referred To Contact Diagnoses Pre-op evaluation Procedures ECG 12 Lead Abdulaziz Alvarez MD [address] [facility], [place] [address] Referral ID Status Reason Start Date Expiration Date V isits Requested Visits Authorized [id number] Authorized 03/17/2024 03/17/2025 1 1 Care Teams (unrecognized sec tion and content) [...] Oakes MD Other Provider Active Raysa Robins NP-Julissa Other Provider Active Shelby Unger MD Other [...] Admit Provider, Attending Provider Active Megan Jenkins ASSISTANT PRODUCT MANAGER Other Provider Active Kalina Nelson LPN Other Provider Active Jhonatan Oakes MD Other Provider Active Raysa Robins NP-C Other Provider Active Shelby Unger MD Other Provider Active Sergio Escudero MD Other Provider Active Team Status: Inactive Member Role Status Dates Kali Maharaj II MD Primary Care Provider Active Raysa Robins NP-C Attending Provider Active Title One Teacher Relationship Specialty Start Date End Date Kali Maharaj MD [address] [place] [address] PCP - [employer] 12/05/22 Kali Maharaj MD [address] [place] [address] PCP - General Internal Medicine 04/10/23 Sarah Lozada LSW Experimental Assembler Family Medicine 10/30/23 Title One Teacher Relationship Specialty Start Date End Date Kali Maharaj MD [address] [place] [address] PCP - [employer] 12/05/22 Kali Maharaj MD [address] [place] [address] PCP - General Internal Medicine 04/10/23 Sarah Lozada LSW Experimental Assembler Family Medicine 10/30/23 Title One Teacher Relationship Specialty Start Date End Date Kali Maharaj MD [address] [place] [address] PCP - [employer] 12/05/22 Kali Maharaj MD [address] [place] [address] PCP - General Internal Medicine 04/10/23 Sarah LozadaTANYA Experimental Assembler Family Medicine 10/30/23 Title One Teacher Relationship Specialty Start Date End Date Kali Maharaj MD [address] [facility] [address] [place] [address] PCP - General Internal Medicine 03/17/24 Goals (unrecognized section and content) Goals may [...] BE BASED ON THE PRIMARY CLINICAL RECORDS. [employer] provides no warranty or guarantee of the accuracy or completeness of information in this document.
--- OUTSIDE RECORDS SUMMARY | 2024-04-06 06:42 | XMS_ITS | CCD ---
Author Organization [facility] Care Team Providers Care [employer] Name Role Phone PHYSICIAN, DEFAULT Unavailable Unavailable [...] Other Provider MD Shelby Unger Other Provider [phone] MD Sergio Escudero Other Provider MD Abdulaziz Alvarez Attending Provider MD Abdulaziz Alvarez Attending Provider [phone] Sergio Escudero Unavailable Unavailable Unavailable AlvarezAbdulaziz day [...] Robins Unavailable DYLON Maharaj Primary Care Provider [phone] MD Sergio Escudero Attending Provider [phone] DYLON Maharaj Primary Care Provider [phone] DEEPA Robins Attending Provider Kali Maharaj MD Unavailable Kali Maharaj MD Primary Care Provider Neville SOFTWARE PUBLISHER, Sarah Unavailable Unavailable Neville SOFTWARE PUBLISHER, Sarah Unavailable Kali Maharaj MD Primary Care [...] source) Chocolate Drug allergy (disorder) 02-21-2012 [facility] Repository (1 source) Chocolate Drug allergy (disorder) 02-01-2021 [facility] Repository (1 source) Chocolate Drug allergy (disorder) 05-28-2021 [facility] Repository Medications Current Medications Medication [...] Administrative/social admission (4 sources) Lives in a fpc; Translations: [Problems related to living in residential [...] Resolved: 09-21-2022 Episodic Other aftercare (1 source) digital coordinator (current) use of aspirin; Translations: [[facility] CURRENT USE OF ASPIRIN] Onset: 02-09-2021 Episodic Other aftercare (1 source) Other brushing operator (current) drug therapy; Translations: [OTH [facility] CURRENT DRUG THERAPY] Onset: 02-09-2021 Episodic Other [...] revealed normal sinus rhythm and normal ECG [facility] Work Phone: US carotid doppler BIon 12-2 US carotid doppler BI [facility] Main [place] [address] [place] [address] Ultrasound Report Signed Patient: Carley Quintanilla MR#: [id number] : 1940 Acct:[id number] Age/Sex: 83 / F ADM Date: 09/26/23 Loc: [facility] Room: Type: [facility] Attending Dr: Raysa Robins [employer]ELTER [employer]PER[employer]-C Ordering Provider: Raysa Robins APRN Date of [...] Sergio Escudero MD09/26/2023 1:51 PM Dictation Location: [place] [address] Tech: Olimpia Anmol Transcribed By: ADEEL 09/26/23 1351 Dictated By: Sergio Escudero MD 09/26/23 1350 Signed By: 09/26/23 1351 Normal [facility] Office Visit (Cardiology)on 09-21-2022 Follow-up [...] quit smoking.; Status:Complete - Retrospective Authorization; Done: [id number] You need to stop smoking. Though it is not easy, more than half of all adult smokers have quit. We encourage you to write down all the reasons you should quit smoking and set a quit date for yourself. Ask us how we can help. You may also call 4-385-NYIA-NOW for free resources and assistance.; Status:Complete - Retrospective Authorization; Done: [id number] Tobacco Use Screening; Status:Complete; Done: [id number] Patient Instructions Please bring all medicines, vitamins, [...] negative for complaint. Vitals Vital Signs Recorded: [id number] 12:15PM Heart Rate84, R Radial Symsdnbt437, RUE Bqaspxjfy86, RUE Height5 ft 6 in [place]881 lb BMI Srzqfnbqmn55.05 kg/m2 BSA Calculated1.76 Tobacco Usea) Yes Patient encouraged to stop using tobacco productsYes PHQ-2 Patient Declined/Screening not indicatedYes (more content not included)... Normal [facility] Tobacco Screening.on 022 Fall risk assessment a) No falls within the last year [facility] [employer] DO Work Phone: Tobacco use status CP a) Yes [facility] [employer] DO Work Phone: Tobacco Screening. Yes [facility] 250 DO Work Phone: No Panel Informationon 09-14 [facility] [employer] DO Work Phone: Creatinine and Glomerular fi ltration rate.predicted panel (S/P/Bld)Ordered By: Dee Kenney on 08-12-2022 Creatinine [Mass/Vol] 1.16 mg/dL 0.44-1.03 [facility] Estimated glomerular filtrat ion rate (GFR) non- AmericanOrdered By: Dee Kenney on 08-12-2022 GFR/1.73 sq M.predicted among non-blacks MDRD (S/P/Bld) [Vol rate/Area] 45 mL/Min [facility] No Panel InformationOrdered By: Dee Kenney on 08-12-2022 Estimated GFR () 54 mL/Min [facility] Comment on above: GFR estimated refere nce range: According to KDOQI guidelines, <60 ml/min/1.73m2 is sufficient to diagnose a patient with chronic kidney disease. Pharmacy Creatinine Clearance (Chem 35.61 [facility] Serum or plasma anion gap de terminationOrdered By: Dee Kenney on 08-12-2022 Anion gap [Moles/Vol] 11.3 mmol/L 6.0-15.0 [facility] Serum or plasma calcium azalea urement (mass/volume)Ordered By: Dee Kenney on 08-12-2022 Calcium [Mass/Vol] 8.6 mg/dL 8.2-10.2 [facility] Serum or plasma chloride janet surement (moles/volume)Ordered By: Dee Kenney on 08-12-2022 Chloride [Moles/Vol] 110 mmol/L 95-114 [facility] Serum or plasma glucose azalea urement (mass/volume)Ordered By: Dee Kenney on 08-12-2022 Glucose [Mass/Vol] 95 mg/dL 70-100 [facility] Comment on above: ADA recommended refe rence rangeRandom Glucose Reference Range is dependent on time and content of last meal. Glucose of more than 200 mg/dL in a nonstressed, ambulatory subject supports the diagnosis of Diabetes Mellitus. Serum or plasma potassium me asurement (moles/volume)Ordered By: Dee Kenney on 08-12-2022 Potassium [Moles/Vol] 3.7 mmol/L 3.5-5.1 [facility] Serum or plasma sodium measu rement (moles/volume)Ordered By: Dee Kenney on 08-12-2022 Sodium [Moles/Vol] 141 mmol/L 136-146 [facility] Serum or plasma total carbon dioxide measurement (moles/volume)Ordered By: Dee Kenney on 08-12-2022 CO2 [Moles/Vol] 23.4 mmol/L 22.0-30.0 [facility] Serum or plasma urea nitroge n measurement (mass/volume)Ordered By: Dee Kenney on 08-12-2022 Urea nitrogen [Mass/Vol] 28 mg/dL 9-23 [facility] TSH DL <= 0.005 mIU/L QnOrde red By: Dee Kenney on 08-11-2022 TSH Qn 2.20 m[IU]/L 0.45-5.33 [facility] Basophils Auto (Bld) [#/Vol] Ordered By: Edward Bernstein on 08-10-2022 Basophils (Bld) [#/Vol] 0.1 10*3/uL 0.0-0.2 [facility] Basophils/100 WBC Auto (Bld) Ordered By: Edward Bernstein on 08-10-2022 Basophils/100 WBC (Bld) 0.5 % . [facility] Bilirubin Test strip Ql (U)O rdered By: Edward Bernstein on 08-10-2022 Bilirubin Ql (U) Negative Negative [facility] Body fluid albumin measureme nt (mass/volume)Ordered By: Edward Bernstein on 08-10-2022 Albumin (Body fld) [Mass/Vol] 3.3 g/dL 3.2-5.5 [facility] COVID CepheidOrdered By: Rima Bernstein on 08-10-2022 SARS-CoV-2 (COVID-19) Ab IA Ql Negative Negative [facility] Comment on above: This is a duplicate [employer] Xpert Xpress CoV-2/Flu/RSV Plus RNA by RT-PCR result to be used for statistical tracking purpose only. SARS-CoV-2 (COVID-19) RNA ALLISON+probe Ql (Unsp spec) [facility] Color Auto (U)Ordered By: Harjit Bernstein on 08-10-2022 Color (U) Yellow Yellow [facility] Eosinophils Auto (Bld) [#/Vo l]Ordered By: Edward Bernstein on 08-10-2022 Eosinophils (Bld) [#/Vol] 0.1 10*3/uL 0.0-0.45 [facility] Eosinophils/100 WBC Auto (Bl d)Ordered By: Edward Bernstein on 08-10-2022 Eosinophils/100 WBC (Bld) 0.7 % . [facility] Erythrocyte distribution wid th Auto (RBC) [Ratio]Ordered By: Edward Bernstein on 08-10-2022 Erythrocyte distribution width (RBC) [Ratio] 13.4 % 11.9-15.3 [facility] Globulin Calc (S) [Mass/Vol] Ordered By: Edward Bernstein on 08-10-2022 Globulin (S) [Mass/Vol] 2.7 g/dL [facility] Glucose Glucometer (dC) [M ass/Vol]Ordered By: Edward Bernstein on 08-10-2022 Glucose [Mass/Vol] 101 mg/dL [facility] Comment on above: Random Glucose Refer ence Range is dependent on time and content of last meal. Glucose of more than 200 mg/dL in a nonstressed, ambulatory subject supports the diagnosis of Diabetes Mellitus. Hematocrit Auto (Bld) [Volum e fraction]Ordered By: Edward Bernstein on 08-10-2022 Hematocrit (Bld) [Volume fraction] 40.9 % 34.0-46.4 [facility] Hemoglobin [Mass/volume] in BloodOrdered By: Edward Bernstein on 08-10-2022 Hemoglobin (Bld) [Mass/Vol] 13.3 g/dL 11.8-15.4 [facility] Ketones Auto test strip (U) [Mass/Vol]Ordered By: Edward Bernstein on 08-10-2022 Ketones (U) [Mass/Vol] Trace Negative [facility] - Chemistry and C hemistry - challengeOrdered By: Edward Bernstein on 08-10-2022 Magnesium [Mass/Vol] 2.2 mg/dL 1.6-2.6 [facility] Natriuretic peptide B (Bld) [Mass/Vol] 29.0 pg/mL 5-100 [facility] Laboratory - CoagulationOrde red By: Edward Bernstein on 08-10-2022 PT Coag (PPP) [Time] 11.0 s 9.0-12.9 [facility] Laboratory - Hematology and Cell countsOrdered By: Edward Bernstein on 08-10-2022 Nucleated RBC/100 WBC (Bld) [Ratio] 0.0 % 0-0.5 [facility] Leukocytes [#/volume] in Blo od by Automated countOrdered By: Edward Bernstein on 08-10-2022 WBC (Bld) [#/Vol] 9.9 10*3/uL 4.5-11.0 [facility] Lymphocytes Auto (Bld) [#/Vo l]Ordered By: Edward Bernstein on 08-10-2022 Lymphocytes (Bld) [#/Vol] 0.9 10*3/uL 1.00-4.8 [facility] Lymphocytes/100 WBC Auto (Bl d)Ordered By: Edward Bernstein on 08-10-2022 Lymphocytes/100 WBC (Bld) 9.5 % . [facility] MCH Auto (RBC) [Entitic mass ]Ordered By: Edward Bernstein on 08-10-2022 MCH (RBC) [Entitic mass] 30.6 pg 24.7-34.3 [facility] MCHC Auto (RBC) [Mass/Vol]Or dered By: Edward Bernstein on 08-10-2022 MCHC (RBC) [Mass/Vol] 32.6 g/dL 32.0-35.0 [facility] MCV Auto (RBC) [Entitic vol] Ordered By: Edward Bernstein on 08-10-2022 MCV (RBC) [Entitic vol] 94.0 fL 80-100 [facility] Monocytes Auto (Bld) [#/Vol] Ordered By: Edward Bernstein on 08-10-2022 Monocytes (Bld) [#/Vol] 0.6 10*3/uL 0.0-0.8 [facility] Monocytes/100 WBC Auto (Bld) Ordered By: Edward Bernstein on 08-10-2022 Monocytes/100 WBC (Bld) 5.7 % . [facility] Neutrophils Auto (Bld) [#/Vo l]Ordered By: Edward Bernstein on 08-10-2022 Neutrophils (Bld) [#/Vol] 8.3 10*3/uL 1.8-7.7 [facility] Neutrophils/100 WBC Auto (Bl d)Ordered By: Edward Bernstein on 08-10-2022 Neutrophils/100 WBC (Bld) 83.6 % . [facility] Nitrite Test strip Ql (U)Ord ered By: Edward Bernstein on 08-10-2022 Nitrite Ql (U) Negative Negative [facility] Platelet mean volume Auto (B ld) [Entitic vol]Ordered By: Edward Bernstein on 08-10-2022 Platelet mean volume (Bld) [Entitic vol] 10.2 fL 6.3-10.7 [facility] Platelet poor plasma interna tional normalized ratio (INR) by coagulation assay (relatOrdered By: Edward Bernstein on 08-10-2022 INR Coag (PPP) [Relative time] 1.0 {INR} [facility] Comment on above: INR Therapeutic [...] 08-10-2022 Platelets (Bld) [#/Vol] 193 10*3/uL 150-450 [facility] Protein Auto test strip (U) [Mass/Vol]Ordered By: Edward Bernstein on 08-10-2022 Protein (U) [Mass/Vol] Negative Negative [facility] Protein [Mass/volume] in Ser um or PlasmaOrdered By: Edward Bernstein on 08-10-2022 Protein [Mass/Vol] 6.0 g/dL 6.1-7.9 [facility] RBC Auto (Bld) [#/Vol]Ordere d By: Edward Bernstein on 08-10-2022 RBC (Bld) [#/Vol] 4.36 10*6/uL 3.60-5.00 [facility] Serum or plasma alanine jensen otransferase measurement without P-5'-P (enzymatic activiOrdered By: Edward eBrnstein on 08-10-2022 ALT No additional P-5'-P [Catalytic activity/Vol] 12 U/L 10-60 [facility] Serum or plasma albumin/glob ulin mass ratioOrdered By: Edward Bernstein on 08-10-2022 Albumin/Globulin [Mass ratio] 1.2 {ratio} [facility] Serum or plasma alkaline sondra sphatase measurement (enzymatic activity/volume)Ordered By: Edward Bernstein on 08-10-2022 ALP [Catalytic activity/Vol] 52 U/L 32-92 [facility] Serum or plasma aspartate am inotransferase measurement (enzymatic activity/volume)Ordered By: Edward Bernstein on 08-10-2022 AST [Catalytic activity/Vol] 16 U/L 10-42 [facility] Serum or plasma total biliru bin measurement (mass/volume)Ordered By: Edward Bernstein on 08-10-2022 Bilirubin [Mass/Vol] 0.5 mg/dL 0.3-1.2 [facility] Specific gravity Auto test s trip (U) [Rel density]Ordered By: Edward Bernstein on 08-10-2022 Specific gravity (U) [Rel density] 1.014 1.001-1.03 0 [facility] Troponin I.cardiac [Mass/vol ume] in Serum or Plasma by High sensitivity methodOrdered By: Edward Bernstein on 08-10-2022 Troponin I.cardiac High sensitivity method [Mass/Vol] 9 pg/mL 0-15 [facility] Urine clarity by refractomet ry automatedOrdered By: Edward Bernstein on 08-10-2022 Clarity Refractometry automated (U) Clear Clear [facility] Urine glucose measurement by automated test strip (mass/volume)Ordered By: Edward Bernstein on 08-10-2022 Glucose Auto test strip (U) [Mass/Vol] Normal mg/dL Normal [facility] Urine hemoglobin detection b y automated test stripOrdered By: Edward Bernstein on 08-10-2022 Hemoglobin Auto test strip Ql (U) Negative Negative [facility] Urine leukocyte esterase det ection by automated test stripOrdered By: Edward Bernstein on 08-10-2022 Leukocyte esterase Auto test strip Ql (U) Negative Negative [facility] Urobilinogen Auto test strip (U) [Mass/Vol]Ordered By: Edward Bernstein on 08-10-2022 Urobilinogen (U) [Mass/Vol] Normal mg/dL Normal [facility] pH Auto test strip (U)Ordere d By: Edward Bernstein on 08-10-2022 pH (U) 5.5 [pH] 5.0-9.0 [facility] MRI Brain w/oon 09-20-2021 MRI Brain w/o CLINICAL HISTORY: COMPARISON: TECHNIQUE: Multiplanar [facility] MRI of the brain was performed [...] by MATTHEW TRIPLETT on 09/21/2021 1240 Normal [facility] [employer] LYME DISEASE, WESTERN BLOTon 08-26-2021 IgG P18 Ab. Absent Normal [facility] Comment on above: Performed By: #### L YMWB #### [facility] [address] [place] [address] Dr. Christian Lebron IgG P23 Ab. Absent Normal [facility] Comment on above: Performed By: #### L YMWB #### [facility] [address] [place] [address] [address] Christian Lebron IgG P28 Ab. Absent Normal [facility] Comment on above: Performed By: #### L YMWB #### [facility] [address] [address] [address] Christian Lebron IgG P30 Ab. Absent [facility] Comment on above: Performed By: #### L YMWB #### [facility] [address] [place] [address] [address] Christian Lebron IgG P39 Ab. Absent Normal [facility] Comment on above: Performed By: #### L YMWB #### [facility] [address] [place] [address] Dr. Christian Lebron IgG P41 Ab. Absent [facility] Comment on above: Performed By: #### L YMWB #### [facility] [address] [place] [address] Dr. Christian Lebron IgG P45 Ab. Absent Normal [facility] Comment on above: Performed By: #### L YMWB #### [facility] [address] [place] [address] Dr. Christian Lebron IgG P58 Ab. Absent [facility] Comment on above: Performed By: #### L YMWB #### [facility] [address] [place] [address] Dr. Christian Lebron IgG P66 Ab. Absent [facility] Comment on above: Performed By: #### L YMWB #### [facility] [address] [place] [address] Dr. Christian Lebron IgG P93 Ab. Absent [facility] Comment on above: Performed By: #### L YMWB #### [facility] [address] [place] [address] Dr. Christian Lebron IgM P23 Ab. Absent [facility] Comment on above: Performed By: #### L YMWB #### [facility] [address] [place] [address] Dr. Christian Lebron IgM P39 Ab. Absent [facility] Comment on above: Performed By: #### L YMWB #### [facility] [address] [place] [address] Dr. Christian Lebron IgM P41 Ab. Absent [facility] Comment on above: Performed By: #### L YMWB #### [facility] [address] [place] [address] Dr. Christian Lebron Lyme IgG WB Interp. Negative [facility] Comment on above: Result Comment: Posi tive: 5 of the following Borrelia-specific bands: 18,23,28,30,39,41,45,58, 66, and 93. Negative: No bands or banding patterns which do not meet positive criteria. Performed By: #### L YMWB #### [facility] [address] [place] [address] [address] Christian Lebron Lyme IgM WB Interp. Negative Normal [facility] Comment on above: Result Comment: Note : [...] are those recommended by CDC/ASTPHLD. p23=Osp C, h96=alkrbjgwj . Note: Sera from individuals with the following may cross react in the [place]yme [place] Blot assays: other spirochetal diseases (periodontal disease, leptospirosis, relapsing fever, yaws, and pinta); connective autoimmune (Rheumatoid Arthritis and Systemic Lupus Erythematosus and also individuals with Antinuclear Antibody); other infections (Gage Spotted Fever; Roel-Briones Virus, and Cytomegalovirus). . Performed By: #### L YMWB #### [facility] [address] [place] [address] [address] Christian Lebron METHYLMALONIC ACID (MMA)on 10-26-2020 Disclaimer: Comment Normal [facility] Comment on above: Result Comment: This test was developed and its performance characteristics determined by [employer]. It has not been cleared or approved by the Food and Drug Administration. Performed By: #### M MA2 #### [facility] [address] [place] [address] [address] Christian Lebron Methylmalonic Acid, Serum 255 nmol/L Normal 0-378 [facility] Comment on above: Performed By: #### M MA2 #### [facility] [address] [place], [place] [id number] Dr. Christian Lebron HOMOCYSTEINEon 08-25-2021 Homocyst(e)ine, Plasma 29.7 umol/L Critically high 0.0-21. 3 [facility] Comment on above: Result Comment: Spec imen quantity insufficient for verification by repeat analysis. Performed By: #### H OMCY #### [facility] [address] [place] [address] Dr. Christian Lebron RPR QUANTon 08-24-2021 Rapid Plasma Reagin, Quant Non-Reactive Normal NonRea<1:1 [facility] Comment on above: Performed By: #### R PRQ #### [facility] [address] [place] [address] Dr. Christian Lebron AMMONIAon 2021 Ammonia (P) [Moles/Vol] 9 umol/L Critically low 10-30 [facility] Comment on above: Performed By: #### M MA2 #### [facility] [address] [place] [address] Dr. Christian Lebron CRPon 2021 CRP [Mass/Vol] mg/L Normal <=1.0 [facility] Comment on above: Performed By: #### M MA2 #### [facility] [address] [place] [address] Dr. Christian Lebron FOLATEon 2021 FOLATE 4.50 ng/mL Normal >=2.76 [facility] Comment on above: Performed By: #### F T4, VITB12, FOL #### [facility] [address] [place] [address] Dr. Christian Lebron FREE T4on 2021 Free T4 [Mass/Vol] 0.98 ng/dL Normal 0.78-2.19 [facility] Comment on above: Performed By: #### F T4, VITB12, FOL #### [facility] [address] [place] [address] Dr. Christian Lebron LIVER PROFILEon 2021 Albumin [Mass/Vol] 3.6 g/dL Normal 3.5-5.0 [facility] Comment on above: Performed By: #### M MA2 #### [facility] [address] [place] [address] Dr. Christian Lebron Albumin/Globulin [Mass ratio] 1.0 {ratio} Normal [facility] Comment on above: Performed By: #### M MA2 #### [facility] [address] [place] [address] [address] Christian Lebron ALP [Catalytic activity/Vol] 96 U/L Normal 38-126 [facility] Comment on above: Performed By: #### M MA2 #### [facility] [address] [place] [address] Dr. Christian Lebron ALT [Catalytic activity/Vol] 14 U/L Normal 9-52 [facility] Comment on above: Performed By: #### M MA2 #### [facility] [address] [place] [address] [address] Christian Lebron AST [Catalytic activity/Vol] 17 U/L Normal 14-36 [facility] Comment on above: Performed By: #### M MA2 #### [facility] [address] [place] [address] Dr. Christian Lebron BILI, CONJUGATED 0.1 mg/dL Normal 0.0-0.3 [facility] Comment on above: Performed By: #### M MA2 #### [facility] [address] [place] [address] Dr. Christian Lebron Bilirubin [Mass/Vol] 0.3 mg/dL Normal 0.2-1.3 [facility] Comment on above: Performed By: #### M MA2 #### [facility] [address] [place] [address] Dr. Christian Lebron Globulin (S) [Mass/Vol] 3.7 g/dL Normal [facility] Comment on above: Performed By: #### M MA2 #### [facility] [address] [place] [address] Dr. Christian Lebron Protein [Mass/Vol] 7.3 g/dL Normal 6.1-8.2 [facility] Comment on above: Performed By: #### M MA2 #### [facility] [address] [place] [address] Dr. Christian Lebron SED RATE [facility] 2020 SED RATE 31 mm/hr Critically high <=30 [facility] Comment on above: Performed By: #### H JAYDENCY #### [facility] [address] [place], [place] [id number] Dr. Christian Lebron TSHon 2021 TSH 3.087 uIU/mL Normal 0.470-4.68 0 [facility] Comment on above: Performed By: #### M MA2 #### [facility] [address] [place] [address] [address] Christian Lebron TSH RANGE SEE BELOW Normal [facility] Comment on above: Result Comment: <0.3 4 UIU/ml HYPERTHYROID 0.34-5.60 UIU/ml EUTHYROID >5.60 UIU/ml HYPOTHYROID Performed By: #### M MA2 #### [facility] [address] [place] [address] [address] Christian Lebron VITAMIN B12on 2021 Cobalamin (Vitamin B12) [Mass/Vol] 521.0 pg/mL Normal 239.0-931. 0 [facility] Comment on above: Performed By: #### F T4, VITB12, FOL #### [facility] [address] [place] [address] Dr. Christian Lebron XR DEXA BONE DENSITYon [...] OMAR SOTELO Date: 2021-07-10 14:50 Normal [facility] CBC AUTO DIFFon 02-02-2021 BASO # 0.1 103/ul Normal 0.0-0.1 [facility] Comment on above: Performed By: #### C BC #### [facility] [address] [place], [place] [id number] Lauri Pily Basophils/100 WBC (Bld) 0.4 % Normal 0.2-2.0 [facility] Comment on above: Performed By: #### C BC #### [facility] [address] [place], [place] [id number] Lauri Pily EO # 0.1 103/ul Normal 0.0-0.7 [facility] Comment on above: Performed By: #### C BC #### [facility] [address] [place], [place] [id number] Lauri Pily Eosinophils/100 WBC (Bld) 0.9 % Normal 0.9-7.0 [facility] Comment on above: Performed By: #### C BC #### [facility] [address] [place] [address] Lauri Pily Erythrocyte distribution width (RBC) [Ratio] 14.2 % Normal 11.0-15.0 [facility] Comment on above: Performed By: #### C BC #### [facility] [address] [place], [place] [address] Lauri Pily Hematocrit (Bld) [Volume fraction] 40.8 % Normal 36.0-48.0 [facility] Comment on above: Performed By: #### C BC #### [facility] [address] [place], [place] [address] Lauri Pily Hemoglobin (Bld) [Mass/Vol] 13.1 g/dL Normal 12.0-16.0 [facility] Comment on above: Performed By: #### C BC #### [facility] [address] [place] [address] Lauri Pily IG # 0.06 10e3/ul Critically high 0.00-0.03 [facility] Comment on above: Performed By: #### C BC #### [facility] [address] [place], [place] [address] Lauri Pily IG % 0.5 % Normal 0.0-0.5 [facility] Comment on above: Performed By: #### C BC #### [facility] [address] [place] [address] Lauri Pily LYMPH # 2.4 103/ul Normal 1.2-3.8 [facility] Comment on above: Performed By: #### C BC #### [facility] [address] [place], [place] [address] Lauri Pily Lymphocytes/100 WBC (Bld) 20.7 % Normal 20.5-60.0 [facility] Comment on above: Performed By: #### C BC #### [facility] [address] [place], [place] [address] Lauri Pily MANUAL DIFF REQ NO Normal [facility] Comment on above: Performed By: #### C BC #### [facility] [address] [place], [place] [address] Lauri Pily MCH (RBC) [Entitic mass] 28.5 pg Normal 26.7-34.0 [facility] Comment on above: Performed By: #### C BC #### [facility] [address] [place] [address] Lauri Pily MCHC (RBC) [Mass/Vol] 32.1 g/dL Normal 29.9-35.2 [facility] Comment on above: Performed By: #### C BC #### [facility] [address] [place] [address] Lauri Pily MCV (RBC) [Entitic vol] 88.9 fL Normal 81.0-99.0 [facility] Comment on above: Performed By: #### C BC #### [facility] [address] [place], [place] [address] Lauri Pily MONO # 0.9 103/ul Critically high 0.3-0.8 [facility] Comment on above: Performed By: #### C BC #### [facility] [address] [place], [place] [address] Lauri Pily Monocytes/100 WBC (Bld) 7.7 % Normal 1.7-12.0 [facility] Comment on above: Performed By: #### C BC #### [facility] [address] [place] [address] Lauri Pily NEUT # 8.1 103/ul Critically high 1.4-6.5 [facility] Comment on above: Performed By: #### C BC #### [facility] [address] [place], [place] [id number] Lauri Nascimento Neutrophils/100 WBC (Bld) 69.8 % Normal 43.0-75.0 [facility] Comment on above: Performed By: #### C BC #### [facility] [address] [place] [address] Lauri Nascimento Platelet mean volume (Bld) [Entitic vol] 11.9 fL Normal 9.5-13.5 [facility] Comment on above: Performed By: #### C BC #### [facility] [address] [place] [address] Lauri Nascimento PLT 197 103/ul Normal 150-450 [facility] Comment on above: Performed By: #### C BC #### [facility] [address] [place] [address] Lauri Nascimento RBC 4.59 106/ul Normal 4.20-5.40 [facility] Comment on above: Performed By: #### C BC #### [facility] [address] [place] [address] Lauri Nascimento WBC 11.6 103/ul Critically high 4.0-11.0 [facility] Comment on above: Performed By: #### C BC #### [facility] [address] [place] [address] Lauri Nascimento PROF CHEM 8 (BAS METB)on Anion gap [Moles/Vol] 12.7 mmol/L Normal [facility] Comment on above: Performed By: #### H OMCY #### [facility] [address] [place] [address] Dr. Christian Lebron Calcium [Mass/Vol] 9.1 mg/dL Normal 8.4-10.2 [facility] Comment on above: Performed By: #### H OMCY #### [facility] [address] [place] [address] Dr. Christian Lebron Chloride [Moles/Vol] 110 mmol/L Critically high 98-107 [facility] Comment on above: Performed By: #### H OMCY #### [facility] [address] [place] [address] Dr. Christian Lebron CO2 [Moles/Vol] 21.7 mmol/L Critically low 22.0-30.0 [facility] Comment on above: Performed By: #### H OMCY #### [facility] [address] [place] [address] Dr. Christian Lebron Creatinine [Mass/Vol] 1.25 mg/dL Critically high 0.52-1.04 [facility] Comment on above: Performed By: #### H OMCY #### [facility] [address] [place] [address] Dr. Christian Lebron EGFR-AF RUSSIAN 50 mL/min/1.73m2 Critically low >=60 [facility] Comment on above: Performed By: #### H OMCY #### [facility] [address] [place] [address] Dr. Christian Lebron EGFR-NON AF RUSSIAN 41 mL/min/1.73m2 Critically low >=60 [facility] Comment on above: Performed By: #### H OMCY #### [facility] [address] [place] [address] Dr. Christian Lebron Glucose [Mass/Vol] 117 mg/dL Critically high 74-106 [facility] Comment on above: Performed By: #### H OMCY #### [facility] [address] [place] [address] Dr. Christian Lebron Potassium [Moles/Vol] 3.4 mmol/L Normal 3.4-5.0 [facility] Comment on above: Performed By: #### H OMCY #### [facility] [address] [place] [address] Dr. Christian Lebron Sodium [Moles/Vol] 141 mmol/L Normal 137-145 [facility] Comment on above: Performed By: #### H OMCY #### [facility] [address] [place] [address] Dr. Christian Lebron Urea nitrogen [Mass/Vol] 28.0 mg/dL Critically high 7.0-17.0 [facility] Comment on above: Performed By: #### H OMCY #### [facility] [address] [place] [address] Dr. Christian Lebron Urea nitrogen/Creatinine [Mass ratio] 22.4 mg/mg Normal [facility] Comment on above: Performed By: #### H OMCY #### [facility] [address] [place] [address] Dr. Christian Lebron CBC AUTO DIFFon 02-01-2021 BASO # 0.1 103/ul Normal 0.0-0.1 [facility] Comment on above: Performed By: #### M MA2 #### [facility] [address] [place] [address] Dr. Christian Lebron Basophils/100 WBC (Bld) 0.5 % Normal 0.2-2.0 [facility] Comment on above: Performed By: #### M MA2 #### [facility] [address] [place] [address] Dr. Christian Lebron EO # 0.1 103/ul Normal 0.0-0.7 [facility] Comment on above: Performed By: #### M MA2 #### [facility] [address] [place] [address] Dr. Christian Lebron Eosinophils/100 WBC (Bld) 1.0 % Normal 0.9-7.0 [facility] Comment on above: Performed By: #### Khadar MA2 #### [facility] [address] [place] [address] Dr. Christian Lebron Erythrocyte distribution width (RBC) [Ratio] 13.9 % Normal 11.0-15.0 [facility] Comment on above: Performed By: #### M MA2 #### [facility] [address] [place] [address] Dr. Christian Lebron Hematocrit (Bld) [Volume fraction] 38.7 % Normal 36.0-48.0 [facility] Comment on above: Performed By: #### M MA2 #### [facility] [address] [place] [address] Dr. Christian Lebron Hemoglobin (Bld) [Mass/Vol] 12.3 g/dL Normal 12.0-16.0 [facility] Comment on above: Performed By: #### M MA2 #### [facility] [address] [place] [address] Dr. Christian Lebron IG # 0.04 10e3/ul Critically high 0.00-0.03 [facility] Comment on above: Performed By: #### Khadar MA2 #### [facility] [address] [place] [address] Dr. Christian Lebron IG % 0.4 % Normal 0.0-0.5 [facility] Comment on above: Performed By: #### Khadar MA2 #### [facility] [address] [place] [address] Dr. Christian Lebron LYMPH # 2.0 103/ul Normal 1.2-3.8 [facility] Comment on above: Performed By: #### Khadar MA2 #### [facility] [address] [place] [address] Dr. Christian Lebron Lymphocytes/100 WBC (Bld) 22.0 % Normal 20.5-60.0 [facility] Comment on above: Performed By: #### Khadar MA2 #### [facility] [address] [place] [address] Dr. Christian Lebron MANUAL DIFF REQ NO Normal [facility] Comment on above: Performed By: #### Khadar HORNE2 #### [facility] [address] [place] [address] Dr. Christian Lebron MCH (RBC) [Entitic mass] 29.0 pg Normal 26.7-34.0 [facility] Comment on above: Performed By: #### Khadar HORNE2 #### [facility] [address] [place] [address] Dr. Christian Lebron MCHC (RBC) [Mass/Vol] 31.8 g/dL Normal 29.9-35.2 [facility] Comment on above: Performed By: #### Khadar HORNE2 #### [facility] [address] [place] [address] Dr. Christian Lebron MCV (RBC) [Entitic vol] 91.3 fL Normal 81.0-99.0 [facility] Comment on above: Performed By: #### Khadar MA2 #### [facility] [address] [place] [address] Dr. Christian Lebron MONO # 0.8 103/ul Normal 0.3-0.8 [facility] Comment on above: Performed By: #### Khadar MA2 #### [facility] [address] [place] [address] Dr. Christian Lebron Monocytes/100 WBC (Bld) 8.7 % Normal 1.7-12.0 [facility] Comment on above: Performed By: #### Khadar HORNE2 #### [facility] [address] [place] [address] Dr. Christian Lebron NEUT # 6.2 103/ul Normal 1.4-6.5 [facility] Comment on above: Performed By: #### Khadar HORNE2 #### [facility] [address] [place] [address] Dr. Christian Lebron Neutrophils/100 WBC (Bld) 67.4 % Normal 43.0-75.0 [facility] Comment on above: Performed By: #### Khadar HORNE2 #### [facility] [address] [place] [address] Dr. Christian Lebron Platelet mean volume (Bld) [Entitic vol] 11.9 fL Normal 9.5-13.5 [facility] Comment on above: Performed By: #### Khadar HORNE2 #### [facility] [address] [place] [address] Dr. Christian Lebron PLT 175 103/ul Normal 150-450 [facility] Comment on above: Performed By: #### Khadar HORNE2 #### [facility] [address] [place] [address] Dr. Christian Lebron RBC 4.24 106/ul Normal 4.20-5.40 [facility] Comment on above: Performed By: #### Khadar HORNE2 #### [facility] [address] [place] [address] Dr. Christian Lebron WBC 9.1 103/ul Normal 4.0-11.0 [facility] Comment on above: Performed By: #### M MA2 #### [facility] [address] [place] [address] HEAD WO CONon [...] YAQUELIN ANSARI Date: 2021-01-31 22:45 Normal [facility] ECHO LIMITED STUDYon 021 ECHO LIMITED STUDY Patient: CARLEY QUINTANILLA Exam Date: 02/01/2021 : 1940 Gender:F Ordering : DR. LULU FRIEDMAN . Admission #: [id number] Family : DR KALI MAHARAJ M.D. Order #: [id number] CLICK HERE TO VIEW EXAM ECHOCARDIOGRAM REPORT [...] Area(A4C): 15.60 cm2 Left Atrium Systolic Volume(A2C): 48444 mm3 Left Atrium Systolic Volume(A4C): 19460 mm3 Mitral Valve Right Ventricle Aorta AO Root Diam: 3.10 cm Aortic Valve Tricuspid Valve Pulmonic Valve Right Atrium Dictated by: Max Ruelas M.D. on 02/01/2021 at 13:45 Approved by: Max Ruelas M.D. on 02/01/2021 at 13:51 Normal [facility] ER URINE PROFILEon 1 Bilirubin Ql (U) Negative Normal NEGATIVE [facility] Comment on above: Performed By: #### E RUR #### [facility] [address] [place] [address] Lauri Nascimento Clarity (U) CLEAR Normal CLEAR [facility] Comment on above: Performed By: #### E RUR #### [facility] [address] [place] [address] Lauri Pily Color (U) LT. YELLOW Normal YELLOW [facility] Comment on above: Performed By: #### E RUR #### [facility] [address] [place] [address] Lauri Pily ERUAHD A micrscopic examina tion will be performed if indicated. Normal [facility] Comment on above: Performed By: #### E RUR #### [facility] [address] [place] [address] Lauri Pily Glucose Ql (U) Negative Normal NEGATIVE [facility] Comment on above: Performed By: #### E RUR #### [facility] [address] [place] [address] Lauri Pily Hemoglobin Ql (U) Negative Normal NEGATIVE [facility] Comment on above: Performed By: #### E RUR #### [facility] [address] [place] [address] Lauri Pily Ketones Ql (U) TRACE Abnormal NEGATIVE [facility] Comment on above: Performed By: #### E RUR #### [facility] [address] [place] [address] Lauri Pily LEUKOCYTES Negative Normal NEGATIVE [facility] Comment on above: Performed By: #### E RUR #### [facility] [address] [place] [address] Lauri Pily Nitrite Ql (U) Negative Normal NEGATIVE [facility] Comment on above: Performed By: #### E RUR #### [facility] [address] [place] [address] Lauri Pily pH (U) 5.0 [pH] Normal 5-9 [facility] Comment on above: Performed By: #### E RUR #### [facility] [address] [place] [address] Lauri Pily SPEC GRAVITY 1.025 Normal 1.005-<=1. 025 [facility] Comment on above: Performed By: #### E RUR #### [facility] [address] [place] [address] Lauri Nascimento UA PROTEIN TRACE Normal NEGATIVE/ TRACE [facility] Comment on above: Performed By: #### E RUR #### [facility] [address] [place] [address] Laurilaura Nascimento UR MICRO IND NOT INDICATED Normal [facility] Comment on above: Performed By: #### E RUR #### [facility] [address] [place] [address] Laurilaura Nascimento Urobilinogen Qn (U) 0.2 {Irineo'U}/dL Normal 0.2 - 1. 0 [facility] Comment on above: Performed By: #### E RUR #### [facility] [address] [place] [address] Lauri Nascimento PROF CHEM 8 (BAS METB)on Anion gap [Moles/Vol] 15.6 mmol/L Normal [facility] Comment on above: Performed By: #### Khadar HORNE2 #### [facility] [address] [place] [address] Dr. Christian Lebron Calcium [Mass/Vol] 8.8 mg/dL Normal 8.4-10.2 [facility] Comment on above: Performed By: #### Khadar HORNE2 #### [facility] [address] [place] [address] Dr. Christian Lebron Chloride [Moles/Vol] 109 mmol/L Critically high 98-107 [facility] Comment on above: Performed By: #### Khadar HORNE2 #### [facility] [address] [place] [address] Dr. Christian Lebron CO2 [Moles/Vol] 23.1 mmol/L Normal 22.0-30.0 [facility] Comment on above: Performed By: #### M MA2 #### [facility] [address] [place] [address] Dr. Christian Lebron Creatinine [Mass/Vol] 1.49 mg/dL Critically high 0.52-1.04 [facility] Comment on above: Performed By: #### M MA2 #### [facility] [address] [place] [address] Dr. Christian Lebron EGFR-AF RUSSIAN 41 mL/min/1.73m2 Critically low >=60 [facility] Comment on above: Performed By: #### M MA2 #### [facility] [address] [place] [address] Dr. Christian Lebron EGFR-NON AF RUSSIAN 34 mL/min/1.73m2 Critically low >=60 [facility] Comment on above: Performed By: #### Khadar HORNE2 #### [facility] [address] [place] [address] Dr. Christian Lebron Glucose [Mass/Vol] 114 mg/dL Critically high 74-106 [facility] Comment on above: Performed By: #### Khadar HORNE2 #### [facility] [address] [place] [address] Dr. Christian Lebron Potassium [Moles/Vol] 3.7 mmol/L Normal 3.4-5.0 [facility] Comment on above: Performed By: #### Khadar HORNE2 #### [facility] [address] [place] [address] Dr. Christian Lebron Sodium [Moles/Vol] 144 mmol/L Normal 137-145 [facility] Comment on above: Performed By: #### Khadar HORNE2 #### [facility] [address] [place] [address] Dr. Christian Lebron Urea nitrogen [Mass/Vol] 28.0 mg/dL Critically high 7.0-17.0 [facility] Comment on above: Performed By: #### Khadar HORNE2 #### [facility] [address] [place] [address] Dr. Christian Lebron Urea nitrogen/Creatinine [Mass ratio] 18.8 mg/mg Normal [facility] Comment on above: Performed By: #### Khadar HORNE2 #### [facility] [address] [place] [address] Dr. Christian Lebron Rapid Covid-19 PCR (CVDRPD)o n 02-01-2021 SARS-CoV-2 (COVID-19) RNA ALLISON+probe Ql (Unsp spec) Not detected Normal NOT DETECTED [facility] Comment on above: Result Comment: This test is not yet approved or cleared by the [place] Food and Drug Administration (FDA). This test was developed by [employer], [place], [place]. The performance characteristics of this test were validated by [facility]. The results are not intended to be used as the sole means for clinical diagnosis or patient management decisions. [facility] is authorized under Clinical Laboratory Improvement Amendments (CLIA) to perform high- complexity testing. When diagnostic testing is negative, the possibility of a false negative should be considered in the context of a patient's recent exposures and the presence of clinical signs and symptoms consistent with SARS-CoV-2. Performed By: #### H OMCY #### [facility] [address] [address] [address] Christian Lebron TROPONIN, HIGH SENSITIVITYon 02-01-2021 HSTROP 15.4 pg/mL Normal 4.0-35.5 [facility] Comment on above: Result Comment: CUT- OFF POINTS HAVE BEEN ESTABLISHED BASED ON THE FOURTH UNIVERSAL DEFINITIONS OF MYOCARDIAL INFARCTION. THE UPPER REFERENCE LIMIT (URL) OF TROPONIN, DEFINED THE 99TH PERCENTILE OF cTnI DISTRIBUTION IN A REFERENCE POPULATION, HAS BEEN CONFIRMED THE DECISION THRESHOLD FOR [place] DIAGNOSIS. Performed By: #### H STROPN #### [facility] [address] [id number] Lauri Nascimento XR CHEST 2 Von 02-01-2021 [...] YAQUELIN ANSARI Date: 2021-01-31 22:40 Normal [facility] XR PELVIS 1_2 VIEWSon 2020 XR PELVIS [...] YAQUELIN ANSARI Date: 2021-01-31 22:41 Normal [facility] BNPon 01-31-2021 Natriuretic peptide B (Bld) [Mass/Vol] 1162.0 pg/mL Normal <=1,800.0 [facility] Comment on above: Performed By: #### H OMCY #### [facility] [address] [place] [address] Dr. Christian Lebron CBC AUTO DIFFon 01-31-2021 BASO # 0.0 103/ul Normal 0.0-0.1 [facility] Comment on above: Performed By: #### E RUR #### [facility] [address] [place], [place] [id number] Lauri Pily Basophils/100 WBC (Bld) 0.4 % Normal 0.2-2.0 [facility] Comment on above: Performed By: #### E RUR #### [facility] [address] [place] [address] Lauri Pily EO # 0.1 103/ul Normal 0.0-0.7 [facility] Comment on above: Performed By: #### E RUR #### [facility] [address] [place] [address] Lauri Pily Eosinophils/100 WBC (Bld) 0.9 % Normal 0.9-7.0 [facility] Comment on above: Performed By: #### E RUR #### [facility] [address] [place] [address] Lauri Pily Erythrocyte distribution width (RBC) [Ratio] 13.8 % Normal 11.0-15.0 [facility] Comment on above: Performed By: #### E RUR #### [facility] [address] [place], [place] [address] Lauri Pily Hematocrit (Bld) [Volume fraction] 42.8 % Normal 36.0-48.0 [facility] Comment on above: Performed By: #### E RUR #### [facility] [address] [place], [place] [id number] Lauri Pily Hemoglobin (Bld) [Mass/Vol] 13.8 g/dL Normal 12.0-16.0 [facility] Comment on above: Performed By: #### E RUR #### [facility] [address] [place] [address] Laurilaura Nascimento IG # 0.04 10e3/ul Critically high 0.00-0.03 [facility] Comment on above: Performed By: #### E RUR #### [facility] [address] [place] [address] Laurilaura Nascimento IG % 0.4 % Normal 0.0-0.5 [facility] Comment on above: Performed By: #### E RUR #### [facility] [address] [place] [address] Laurilaura Nascimento LYMPH # 2.3 103/ul Normal 1.2-3.8 [facility] Comment on above: Performed By: #### E RUR #### [facility] Laboratory [address] [place] [address] Lauri Gavinen Lymphocytes/100 WBC (Bld) 21.7 % Normal 20.5-60.0 [facility] Comment on above: Performed By: #### E RUR #### [facility] [address] [place] [address] Lauri Nascimento MANUAL DIFF REQ NO Normal [facility] Comment on above: Performed By: #### E RUR #### [facility] [address] [place] [address] Lauri Nascimento MCH (RBC) [Entitic mass] 28.9 pg Normal 26.7-34.0 [facility] Comment on above: Performed By: #### E RUR #### [facility] [address] [place] [address] Lauri Nascimento MCHC (RBC) [Mass/Vol] 32.2 g/dL Normal 29.9-35.2 [facility] Comment on above: Performed By: #### E RUR #### [facility] [address] [place] [address] Lauri Pily MCV (RBC) [Entitic vol] 89.7 fL Normal 81.0-99.0 [facility] Comment on above: Performed By: #### E RUR #### [facility] [address] [place], [place] [id number] Lauri Nascimento MONO # 0.9 103/ul Critically high 0.3-0.8 [facility] Comment on above: Performed By: #### E RUR #### [facility] [address] [place], [place] [id number] Lauri Nascimento Monocytes/100 WBC (Bld) 8.0 % Normal 1.7-12.0 [facility] Comment on above: Performed By: #### E RUR #### [facility] [address] [place], [place] [address] Lauri Nascimento NEUT # 7.4 103/ul Critically high 1.4-6.5 [facility] Comment on above: Performed By: #### E RUR #### [facility] [address] [place], [place] [address] Lauri Nascimento Neutrophils/100 WBC (Bld) 68.6 % Normal 43.0-75.0 [facility] Comment on above: Performed By: #### E RUR #### [facility] [address] [place], [place] [phone] Lauri Nascimento Platelet mean volume (Bld) [Entitic vol] 11.8 fL Normal 9.5-13.5 [facility] Comment on above: Performed By: #### E RUR #### [facility] [address] [place], [place] [address] Lauri Pily PLT 190 103/ul Normal 150-450 [facility] Comment on above: Performed By: #### E RUR #### [facility] [address] [place], [place] [address] Lauri Pily RBC 4.77 106/ul Normal 4.20-5.40 [facility] Comment on above: Performed By: #### E RUR #### [facility] [address] [place], [place] [phone] Lauri Pily WBC 10.8 103/ul Normal 4.0-11.0 [facility] Comment on above: Performed By: #### E RUR #### [facility] [address] [address] Lauri Gavinen PROF 14(COMP METB)on 021 Albumin [Mass/Vol] 3.6 g/dL Normal 3.5-5.0 [facility] Comment on above: Performed By: #### H OMCY #### [facility] [address] [place] [address] Dr. Christian Lebron Albumin/Globulin [Mass ratio] 1.0 {ratio} Normal [facility] Comment on above: Performed By: #### H OMCY #### [facility] [address] [place] [address] Dr. Christian Lebron ALP [Catalytic activity/Vol] 74 U/L Normal 38-126 [facility] Comment on above: Performed By: #### H OMCY #### [facility] [address] [place] [address] Dr. Christian Lebron ALT [Catalytic activity/Vol] 19 U/L Normal 9-52 [facility] Comment on above: Performed By: #### H OMCY #### [facility] [address] [place] [address] Dr. Christian Lebron Anion gap [Moles/Vol] 11.7 mmol/L Normal [facility] Comment on above: Performed By: #### H OMCY #### [facility] [address] [place] [address] Dr. Christian Lebron AST [Catalytic activity/Vol] 16 U/L Normal 14-36 [facility] Comment on above: Performed By: #### H OMCY #### [facility] [address] [place] [address] Dr. Christian Lebron Bilirubin [Mass/Vol] 0.4 mg/dL Normal 0.2-1.3 [facility] Comment on above: Performed By: #### H OMCY #### [facility] [address] [place] [address] Dr. Christian Lebron Calcium [Mass/Vol] 9.3 mg/dL Normal 8.4-10.2 [facility] Comment on above: Performed By: #### H OMCY #### [facility] [address] [address] [address] Christian Lebron Chloride [Moles/Vol] 107 mmol/L Normal 98-107 [facility] Comment on above: Performed By: #### H OMCY #### [facility] [address] [address] [address] Christian Lebron CO2 [Moles/Vol] 26.0 mmol/L Normal 22.0-30.0 [facility] Comment on above: Performed By: #### H OMCY #### [facility] [address] [address] [address] Christian Lebron Creatinine [Mass/Vol] 1.63 mg/dL Critically high 0.52-1.04 [facility] Comment on above: Performed By: #### H OMCY #### [facility] [address] [place] [address] Dr. Christian Lebron EGFR-AF RUSSIAN 37 mL/min/1.73m2 Critically low >=60 [facility] Comment on above: Performed By: #### H OMCY #### [facility] [address] [place] [address] Dr. Christian eLbron EGFR-NON AF RUSSIAN 30 mL/min/1.73m2 Critically low >=60 [facility] Comment on above: Performed By: #### H OMCY #### [facility] [address] [place] [address] Dr. Christian Lebron Globulin (S) [Mass/Vol] 3.7 g/dL Normal [facility] Comment on above: Performed By: #### H OMCY #### [facility] [address] [address] [address] Christian eLbron Glucose [Mass/Vol] 96 mg/dL Normal 74-106 [facility] Comment on above: Performed By: #### H OMCY #### [facility] [address] [place] [address] Dr. Christian Lebron Potassium [Moles/Vol] 3.7 mmol/L Normal 3.4-5.0 [facility] Comment on above: Performed By: #### H OMCY #### [facility] [address] [address] [address] Christian Lebron Protein [Mass/Vol] 7.3 g/dL Normal 6.1-8.2 [facility] Comment on above: Performed By: #### H OMCY #### [facility] [address] [address] [address] Christian Lebron Sodium [Moles/Vol] 141 mmol/L Normal 137-145 [facility] Comment on above: Performed By: #### H OMCY #### [facility] [address] [address] [address] Christian Lebron Urea nitrogen [Mass/Vol] 31.0 mg/dL Critically high 7.0-17.0 [facility] Comment on above: Performed By: #### H OMCY #### [facility] [address] [place] [address] Dr. Christian Lebron Urea nitrogen/Creatinine [Mass ratio] 19.0 mg/mg Normal [facility] Comment on above: Performed By: #### H OMCY #### [facility] [address] [address] [address] Christian Lebron PROTIMEon 01-31-2021 INR Coag (PPP) [Relative time] {INR} Normal [facility] Comment on above: Performed By: #### H OMCY #### [facility] [address] [place] [address] Dr. Christian Lebron INR GUIDELINES SEE BELOW Normal [facility] Comment on above: Result Comment: EVER RED INR: 2.0 - 3.0 CONDITIONS NOT LISTED BELOW 2.5 - 3.5 FOR PROSTHETIC HEART VALVE REPLACEMENT 2.5 - 3.5 RECURRENT THROMBOSIS Performed By: #### H OMCY #### [facility] [address] [place] [address] Dr. Christian Lebron PT Coag (PPP) [Time] 10.0 s Normal 9.0-11.6 [facility] Comment on above: Performed By: #### H OMCY #### [facility] [address] [place] [address] Dr. Christian Lebron PTTon 01-31-2021 aPTT Coag (Bld) [Time] 28.2 s Normal 22.3-36.2 [facility] Comment on above: Performed By: #### H OMCY #### [facility] [address] [address] [address] Christian Lebron TROPONIN, HIGH SENSITIVITYon 01-31-2021 HSTROP 15.5 pg/mL Normal 4.0-35.5 [facility] Comment on above: Result Comment: CUT- OFF POINTS HAVE BEEN ESTABLISHED BASED ON THE FOURTH UNIVERSAL DEFINITIONS OF MYOCARDIAL INFARCTION. THE UPPER REFERENCE LIMIT (URL) OF TROPONIN, DEFINED THE 99TH PERCENTILE OF cTnI DISTRIBUTION IN A REFERENCE POPULATION, HAS BEEN CONFIRMED THE DECISION THRESHOLD FOR [place] DIAGNOSIS. Performed By: #### H OMCY #### [facility] [address] [place] [address] Dr. Christian Lebron TSHon 01-31-2021 TSH 3.025 uIU/mL Normal 0.470-4.68 0 [facility] Comment on above: Performed By: #### H OMCY #### [facility] [address] [address] [address] Christian Lebron TSH RANGE SEE BELOW Normal [facility] Comment on above: Result Comment: <0.3 4 UIU/ml HYPERTHYROID 0.34-5.60 UIU/ml EUTHYROID >5.60 UIU/ml HYPOTHYROID Performed By: #### H OMCY #### [facility] [address] [address] [address] Christian Lebron Vital Signs Date Time Vital Sign Value Performing Clinician Facility 03-17-2024 [id number] Body height 167.6 cm Abdulaziz Alvarez MD Work Phone: [facility] 03-17-2024 11:21-0400 Diastolic blood pressure 52 mm[Hg] Abdulaziz Alvarez MD Work Phone: [facility] 03-17-2024 11:21-0400 Heart rate 79 /min Abdulaziz Alvarez MD Work Phone: [facility] 03-17-2024 11:21-0400 Systolic blood pressure 130 mm[Hg] Abdulaziz Alvarez MD Work Phone: [facility] 11-14-2023 17:04-0500 Body height 162.6 cm Ismael Aquino DPM Work Phone: [facility] 11-14-2023 17:04-0500 Body mass index (BMI) [Ratio] 29.52 kg/m2 Ismael Aquino DPM Work Phone: [facility] 11-14-2023 17:04-0500 Body weight 78.02 kg Ismael Aquino DPM Work Phone: [facility] 11-14-2023 17:04-0500 Diastolic blood pressure 80 mm[Hg] Ismael Aquino DPM Work Phone: [facility] 11-14-2023 17:04-0500 Heart rate 77 /min Ismael Aquino DPM Work Phone: [facility] 11-14-2023 17:04-0500 Systolic blood pressure 123 mm[Hg] Ismael Aquino DPM Work Phone: [facility] 09-26-2023 12:00-0500 Body height 167.64 cm Sergio Escudero Other [employer] Other 09-26-2023 12:00-0500 Body mass index (BMI) [Ratio] 25.01 kg/m2 Sergio Escudero Other [employer] Other 09-26-2023 12:00-0500 Body temperature 96.1 [degF] Sergio Escudero Other [employer] Other 09-26-2023 12:00-0500 Body weight 70.31 kg Sergio Escudero Other [employer] Other 09-26-2023 12:00-0500 Diastolic blood pressure 62 mm[Hg] Sergio Escudero Other [employer] Other 09-26-2023 12:00-0500 SaO2% (BldA) [Mass fraction] 99 % Sergio Kinglucita Other [employer] Other 09-26-2023 12:00-0500 Systolic blood pressure 120 mm[Hg] Sergio Kota Other [employer] Other 03-20-2023 11:30-0400 Body height 167.64 cm Raysa Gibbonsshanice Other [employer] Other 03-20-2023 11:30-0400 Body mass index (BMI) [Ratio] 25.01 kg/m2 Raysa Gibbonsshanice Other [employer] Other 03-20-2023 11:30-0400 Body temperature 97.8 [degF] Raysa Robins Other [employer] Other 03-20-2023 11:30-0400 Body weight 70.31 kg Raysa Robins Other [employer] Other 03-20-2023 11:30-0400 Diastolic blood pressure 86 mm[Hg] Raysa Julienne Other [employer] Other 03-20-2023 11:30-0400 SaO2% (BldA) [Mass fraction] 99 % Raysa Gibbonsshanice Other [employer] Other 03-20-2023 11:30-0400 Systolic blood pressure 122 mm[Hg] Raysa Julienne Other [employer] Other 09-21-2022 12:15-0500 Body height 167.64 cm Abdulaziz Alvarez MD Work Phone: [facility] [address] DO Work Phone: 09-21-2022 12:15-0500 Body mass index (BMI) [Ratio] 24.05 kg/m2 Abdulaziz Alvarez MD Work Phone: [facility] 250 DO Work Phone: 09-21-2022 12:15-0500 Body surface area Derived from formula 1.76 m2 Abdulaziz Alvarez MD Work Phone: [facility] 250 DO Work Phone: 09-21-2022 12:15-0500 Body weight 67.59 kg Abdulaziz Alvarez MD Work Phone: [facility] 250 DO Work Phone: 09-21-2022 12:15-0500 Diastolic blood pressure 78 mm[Hg] Abdulaziz Alvarez MD Work Phone: [facility] 250 DO Work Phone: 09-21-2022 12:15-0500 Heart rate 84 /min Abdulaziz Alvarez MD Work Phone: [facility] 250 DO Work Phone: 09-21-2022 12:15-0500 Systolic blood pressure 126 mm[Hg] Abdulaziz Alvarez MD Work Phone: [facility] 250 DO Work Phone: 09-12-2022 11:45-0500 Body height 167.64 cm Sergio Escudero Other [facility] Other 09-12-2022 11:45-0500 Body mass index (BMI) [Ratio] 27.44 kg/m2 Sergio Escudero Other [employer] Other 09-12-2022 11:45-0500 Body temperature 97.8 [degF] Serigo Kinglucita Other [employer] Other 09-12-2022 11:45-0500 Body weight 77.11 kg Sergio Kinglucita Other [employer] Other 09-12-2022 11:45-0500 Diastolic blood pressure 68 mm[Hg] Sergio Kinglucita Other [employer] Other 09-12-2022 11:45-0500 SaO2% (BldA) [Mass fraction] 98 % Sergio Kinglucita Other [employer] Other 09-12-2022 11:45-0500 Systolic blood pressure 116 mm[Hg] Sergio Kinglucita Other [employer] Other 08-14-2022 12:47-0500 Diastolic blood pressure 71 mm[Hg] DO Edward Bernstein Work Phone: [facility] 08-14-2022 12:47-0500 Systolic blood pressure 177 mm[Hg] DO Edward Bernstein Work Phone: [facility] 08-14-2022 12:00-0500 Body temperature 98.3 [degF] DO Edward Bernstein Work Phone: [facility] 08-14-2022 12:00-0500 Heart rate 79 /min DO Edward Bernstein Work Phone: [facility] 08-14-2022 12:00-0500 Respiratory rate 16 /min DO Edward Bernstein Work Phone: [facility] 08-14-2022 12:00-0500 SaO2% (BldA) [Mass fraction] 98 % DO Edward Bernstein Work Phone: [facility] 08-14-2022 04:50-0500 Body weight 66.6 kg DO Edward Bernstein Work Phone: [facility] 08-13-2022 20:45-0500 Body temperature 97.8 [degF] DO Edward Bernstein Work Phone: [facility] 08-13-2022 20:45-0500 Diastolic blood pressure 68 mm[Hg] DO Edward Bernstein Work Phone: [facility] 08-13-2022 20:45-0500 Heart rate 80 /min DO Edward Bernstein Work Phone: [facility] 08-13-2022 20:45-0500 Respiratory rate 20 /min DO Edward Bernstein Work Phone: [facility] 08-13-2022 20:45-0500 SaO2% (BldA) [Mass fraction] 99 % DO Edward Bernstein Work Phone: [facility] 08-13-2022 20:45-0500 Systolic blood pressure 188 mm[Hg] DO Edward Bernstein Work Phone: [facility] 08-13-2022 11:50-0500 Body height 167.64 cm DO Edward Bernstein Work Phone: [facility] 08-13-2022 06:00-0500 Body weight 68.8 kg DO Edward Bernstein Work Phone: [facility] Encounters Encounter Date Encounter Type Care Provider Facility Start: 04-01-2024 End: 04-01-2024 ambulatory KALI MAHARAJ Not Available Start: 03-23-2024 End: 03-23-2024 ambulatory SOFIA CONROY Not Available Start: 03-17-2024 End: 03-17-2024 ambulatory [facility] Start: 03-17-2024 End: 03-17-2024 Encounter for other preprocedural examination [facility] Start: 03-17-2024 End: 03-17-2024 Office outpatient visit 25 minutes Abdulaziz Alvarez MD Work Phone: [facility] Comment on above: Pre-op evaluation (P rimary Dx); Primary hypertension; Hyperlipidemia, unspecified hyperlipidemia type; Stenosis of carotid artery, unspecified laterality; Former smoker; prison resident; History of syncope Start: 03-17-2024 End: 03-17-2024 Preprocedural examination done Abdulaziz Alvarez MD Work Phone: [facility] Work Phone: Start: 03-13-2024 End: 03-13-2024 ambulatory PILY YAÑEZ Not Available Start: 01-29-2024 End: 01-29-2024 ambulatory KALI MAHARAJ Not Available Start: 01-21-2024 End: 01-21-2024 ambulatory YULIA D BEJ Not Available Start: 11-14-2023 End: 11-14-2023 ambulatory ISMAEL AQUINO Not Available Start: 11-14-2023 End: 11-14-2023 Patient encounter procedure Ismael Aquino DPM Work Phone: [facility] Comment on above: PVD (peripheral vasc ular disease) (CMS/[facility]) (Primary Dx); Onychomycosis; Toe pain, left; Toe [...] encounter procedure II Kali Maharaj Work Phone: [facility] Start: 09-26-2023 End: 09-26-2023 ambulatory II Kali Maharaj Work Phone: [facility] Other Start: 03-20-2023 End: 03-20-2023 Patient encounter procedure Raysa Robins [facility] Start: 03-20-2023 End: 03-20-2023 ambulatory II Kali Maharaj Work Phone: [facility] Other Start: 03-13-2023 ambulatory Abdulaziz Alvarez Facility : Start: 11-10-2022 Chart Update Abdulaziz Alvarez MD Work Phone: [facility] 250 DO Work Phone: Start: 10-30-2022 Telephone encounter Abdulaziz day MD Work Phone: [facility] 600 DO Work Phone: Start: 10-22-2022 Patient encounter procedure Abdulaziz Alvarez MD Work Phone: [facility] 250 DO Work Phone: Start: 09-21-2022 ambulatory Abdulaziz Alvarez Facility : Start: 09-21-2022 Office outpatient vi sit 25 minutes Abdulaziz Alvarez MD Work Phone: [facility] 250 DO Work Phone: Start: 09-18-2022 Chart Update Abdulaziz Alvarez MD Work Phone: [facility] 250 DO Work Phone: Start: 09-14-[address] Kali Maharaj II Facility:[id number] Start: 09-12-2022 End: 09-12-2022 ambulatory Sergio Escudero Other [facility] Other Start: 09-12-2022 Office outpatient vi sit 15 minutes Sergio Escudero [facility] Start: 08-14-2022 ambulatory Cintron Alvarez Facility :[id number] Start: 08-14-2022 Patient encounter procedure DO Edward Bernstein Work Phone: [facility]Electro[facility] Start: 08-13-2022 End: 08-13-2022 ambulatory DO Edward Bernstein Work Phone: [facility] Work Phone: Start: 08-13-2022 End: 08-13-2022 Patient encounter procedure DO Edward Bernstein Work Phone: [facility] Start: 08-12-2022 ambulatory Cintron Alvarez Facility :[id number] Start: 08-11-2022 ambulatory Cintron Alvarez Facility :[id number] Start: 08-10-2022 ambulatory Cintron Alvarez Facility :[id number] Start: 08-10-2022 End: 08-14-2022 Evaluation and management of inpatient DO Edward Bernstein Work Phone: [facility] Start: 12-26-2021 End: 12-26-2021 ambulatory Jhonatan Oakes Other [facility] Other Start: 12-26-2021 Telephone encounter Jhonatan Oakes [facility] Vascular Surgery Start: 2021 End: 08-24-2021 ambulatory YULIA MCCRAY Facility:H1 Start: 07-10-2021 End: 07-11-[address] KALI MAHARAJ Facility:H1 Start: 07-03-[address] KALI MAHARAJ Facilit y:H1 Start: 02-08-2021 End: 03-08-[address] KALI MAHARAJ Facility:H1 Start: 02-01-2021 End: 02-02-2021 ambulatory LULU FRIEDMAN Facility:H1 Start: 01-31-2021 End: 02-01-2021 ambulatory [facility] Start: 12-05-[address] MAX Whyte ility:H1 Start: 09-04-2018 End: 09-05-2018 Patient encounter procedure DEFAULT PHYSICIAN Facility:[facility] Procedures Date Procedure Procedure Detail Performing [...] procedure 03/17/2025 11:00 AM EDT Office Visit [address] [place] [address] Abdulaziz Alvarez MD [address] [facility] [address], [place] [place] [address] [facility] Start: 02-17-2024 End: 02-17-2024 Patient encounter procedure 02/17/2024 1:15 PM EDT Office Visit [facility] [address] [facility] [address] [place] [id number] Kali Maharaj MD [address] [facility] [address] [place] [address] [facility] Start: 01-23-2024 End: 01-23-2024 Patient encounter procedure 01/23/2024 4:10 PM EDT Procedure Visit [facility] [address] [facility] [address] [place] [address] Ismael Aquino DPM [address] [address] [facility] Start: 12-10-2023 End: 12-10-2023 Patient encounter procedure 12/10/2023 2:00 PM EST Office Visit [facility] [address] [facility] [address] [place] [phone] Yulia Mccray MD [address] [facility] 111 [place], [place] [id number] [facility] Start: 11-21-2023 Medicare Annual Wellness (AWV) Medicare Annual Wellness (AWV) [facility] Start: 11-14-2023 End: 11-14-2023 Patient encounter procedure 11/14/2023 4:50 PM EST Procedure Visit [facility] [address] [facility] [address] [place] [address] Ismael Aquino DPM [address] [address] [facility] Start: 11-11-2023 End: 11-11-2023 Patient encounter procedure 11/11/2023 1:50 PM EST Procedure Visit [facility] [address] [place] [phone] Ismael Aquino DPM [address] [address] [facility] Start: 08-10-2023 Echocardiography Echocardiogram [facility] Start: 06-07-2023 COVID-19 Vaccine () COVID-19 Vaccine () [facility] Start: 03-20-2023 Doppler ultrasonography of bilateral carotid arteries US carotid doppler BI [facility] Start: 03-20-2023 US.doppler Carotid arteries - bilateral [facility] Start: 03-13-2023 FUV, Provider: Abdulaziz Alvarez, Status: Pen, Time: 11:50 AM FUV, Provider: Abdulaziz Alvarez, Status: Pen, Time: 11:50 AM [facility] 250 DO Work Phone: Start: 09-21-2022 FUV, Provider: Abdulaziz Alvarez, Status: Pen, Time: 11:50 AM FUV, Provider: Abdulaziz Alvarez, Status: Pen, Time: 11:50 AM [facility] 250 DO Work Phone: Start: 08-14-2022 [facility] Start: 08-13-2022 [facility] Start: 08-12-2022 Referral to vascular surgeon [facility] Start: 08-10-2022 Hospital admission [facility] Start: 08-10-2022 [facility] Start: 08-30-2020 Zoster Vaccines (2 of 2) Zoster Vaccines (2 of 2) [facility] Start: 2000 RSV patients and/or patients aged 60+ years (1 - 1-dose 60+ series) RSV patients and/or patients aged 60+ years (1 - 1-dose 60+ series) [facility] Start: 1962 DTaP/Tdap/Td Vaccines (1 - Tdap) DTaP/Tdap/Td Vaccines (1 - Tdap) [facility] Start: 1940 Creatinine measurement Creatinine Level [facility] Start: 1940 Lipid panel Lipid Panel [facility] Start: 1940 Medicare Annual Wellness Visit Medicare Annual Wellness Visit (AWV) [facility] Start: 1940 Potassium measurement Potassium Level [facility] Start: 1940 Thyroid stimulating hormone measurement TSH Level [facility] Patient Education Carotid Artery Disease Carotid Artery Disease (DC) [facility] Work Phone: Patient referral [facility] Work Phone: Immunizations Immunization Date Immunization Notes Care Provider [facility] 08-12-2023 Influenza, High-dose Seasonal, Quadrivalent, Preservative Free Ismael Aquino DPM Work Phone: [facility] 09-21-2022 Moderna SARS-CoV-2 Booster Vaccination Ismael Aquino DPM Work Phone: [facility] 07-27-2022 Fluzone High-Dose Quadrivalent 0.7 ML Intramuscular Suspension Prefilled Syringe Abdulaziz Alvarez MD Work Phone: [facility] 05-08-2022 Moderna COVID-19 Vac cine 100 MCG/0.5ML Intramuscular Suspension Abdulaziz Alvarez MD Work Phone: [facility] 250 DO Work Phone: 08-07-2021 influenza, high dose seasonal, preservative-free Abdulaziz Alvarez MD Work Phone: [facility] 250 DO Work Phone: 08-04-2021 Moderna COVID-19 Vac cine 100 MCG/0.5ML Intramuscular Suspension Abdulaziz Alvarez MD Work Phone: [facility] 250 DO Work Phone: 11-23-2020 Moderna COVID-19 Vac cine 100 MCG/0.5ML Intramuscular Suspension Abdulaziz Alvarez MD Work Phone: [facility] 250 DO Work Phone: 10-21-2020 Moderna COVID-19 Vac cine 100 MCG/0.5ML Intramuscular Suspension Abdulaziz Alvarez MD Work Phone: [facility] 250 DO Work Phone: 07-05-2020 zoster vaccine recombinant Abdulaziz Alvarez MD Work Phone: [facility] 07-01-2020 influenza, high dose seasonal, preservative-free Abdulaziz Alvarez MD Work Phone: [facility] 250 DO Work Phone: 07-01-2020 Influenza, High-dose Seasonal, Quadrivalent, Preservative Free Ismael Aquino DPM Work Phone: [facility] 06-22-2019 Seasonal trivalent influenza vaccine, adjuvanted, preservative free Abdulaziz Alvarez MD Work Phone: [facility] 07-21-2018 influenza, high dose seasonal, preservative-free Abdulaziz Alvarez MD Work Phone: [facility] 250 DO Work Phone: 06-06-2018 influenza, high dose seasonal, preservative-free Abdulaziz Alvarez MD Work Phone: [facility] 06-18-2017 influenza, high dose seasonal, preservative-free Abdulaziz Alvarez MD Work Phone: [facility] 06-18-2017 pneumococcal polysaccharide vaccine, 23 valent Abdulaziz Alvarez MD Work Phone: [facility] 07-13-2016 influenza, high dose seasonal, preservative-free Abdulaziz Alvarez MD Work Phone: [facility] 07-23-2015 pneumococcal conjuga te vaccine, 13 valent Abdulaziz Alvarez MD Work Phone: [facility] 07-07-2015 influenza, injectabl e, quadrivalent, preservative free Ismael Aquino DPM Work Phone: [facility] 07-03-2013 influenza, seasonal, injectable, preservative free Ismael Aquino DPM Work Phone: [facility] 10-07-2010 pneumococcal polysaccharide vaccine, 23 valent Ismael Aquino DPM Work Phone: [facility] 07-20-2010 seasonal influenza, intradermal, preservative free Ismael Aquino DPM Work Phone: [facility] Payers Date Payer Category Payer Medicaid MEDICAID MEDICAI D [id number] 2023-Present [address] [place] [address] [id number] 2023 Medicaid [id number] 2017 Medicare [id number] 1959 Private Health Insurance [id number] 1959 Self-pay 1940 Unknown [id number] 2.16.840.1.869914.3.579.2. 647 1940 Unknown [id number] 2.16.840.1.110206.3.579.2. 732 1940 Unknown [id number] 2.16.840.1.868443.3.579.2. 593 1940 Unknown [id number] 2.16.840.1.885227.3.579.2. 593 1940 Unknown [id number] 2.16.840.1.913152.3.579.2. 593 1940 Unknown [id number] 2.16.840.1.226228.3.579.2. 593 1940 Unknown [id number] 2.16.840.1.044956.3.579.2. 593 1940 Unknown [id number] 2.16.840.1.608462.3.579.2. 593 1940 Unknown [id number] 2.16.840.1.049644.3.579.2. 593 1940 Unknown [id number] 2.16.840.1.181881.3.579.2. 356 1940 Unknown [id number] 2.16.840.1.892873.3.579.2. 356 1940 Unknown [id number] 2.16.840.1.100886.3.579.2. 356 1940 Unknown [id number] 2.16.840.1.338829.3.579.2. 356 1940 Unknown [id number] 2.16.840.1.552430.3.579.2. 356 194 Unknown [id number] 2.16.840.1.837399.3.579.2. 356 1940 Unknown [id number] 2.16.840.1.043477.3.579.2. 356 1940 Unknown [id number] 2.16.840.1.658438.3.579.2. 356 1940 Unknown [id number] 2.16.840.1.060986.3.579.2. 1244 1940 Unknown [id number] 2.16.840.1.547778.3.579.2. 1259 1940 Unknown [id number] 2.16.840.1.035946.3.579.2. 1259 1940 Unknown [id number] 2.16.840.1.039570.3.579.2. 1259 1940 Unknown [id number] 2.16.840.1.594327.3.579.2. 1259 1940 Unknown [id number] 2.16.840.1.311876.3.579.2. 1259 1940 Unknown [id number] 2.16.840.1.025337.3.579.2. 1259 0 Unknown [id number] 2.16.840.1.693023.3.579.2. 1259 1940 Unknown [id number] 2.16.840.1.272649.3.579.2. 1259 Medicare Medicare [id number] Unknown Unknown Insurance No Card [id number] Unknown [id number] 2.16.840.1.351275.3.579.2. 531 Social History Date Type Detail Facility Start: 10-16-2023 End: 03-17-2024 Sex Assigned At [facility] Other Start: 08-13-2022 End: 08-13-2022 Tobacco smoking status KYIS Smoker (finding) [facility] Start: 1940 Sex Assigned At Female F [facility] Start: 10-16-2023 End: 03-17-2024 Consumes alcohol occasionally Consumes alcohol occasionally [facility] 250 DO Work Phone: Comment on above: coffee 1 cup daily; 1 pack per week; Start: 10-07-1987 Tobacco smoking stat [facility] Smokes tobacco daily [facility] Start: 10-07-1987 History of tobacco use Cigarette Smo ker [facility] History of tobacco use Passive smoker [facility] Start: 04-08-2023 End: 03-17-2024 Tobacco use and exposure Smokeless tobacco non-user [facility] Start: 10-16-2023 End: 11-14-2023 Alcohol intake Lifetime non-drinker (finding) [facility] Start: 1940 Sex Assigned At Not on file [facility] Start: 11-14-2023 Alcohol Comment caffeine intak e: 1-2 cups per day [facility] Start: 03-17-2024 [facility] Work Phone: Start: 03-17-2024 Alcoholic beverage intake Current drinker of alcohol (finding) [facility] Work Phone: Start: 03-17-2024 Alcohol Comment every so often [facility] Work Phone: Start: 03-07-2024 End: 03-17-2024 Exposure to SARS-CoV-2 (event) Not sure [facility] Goals Date Patient Goal Desired Activity /State Functional Status Date Assessment Result Facility 08-14-2022 Functional status Patient at Baseline [facility] Work Phone: 08-10-2022 Functional status Patient at Baseline [facility] Work Phone: Mental Status Date Assessment Result Facility 08-14-2022 Cognitive function Cognitive Sta tus Patient at Baseline [facility] Work Phone: 08-10-2022 Cognitive function Cognitive Sta tus Patient at Baseline [facility] Work Phone: Clinical Notes 08-10-2022 to [...] artery, unspecified laterality 5. Former smoker 6. prison resident Scribe Attestation By signing my name [...] discussion and plan. documented in this encounter [facility] Work Phone: 03-17-2024 Instructions Cait Morrow [...] year Same medications documented in this encounter [facility] Work Phone: 11-14-2023 History of Presen [...] Ismael Aquino DPM documented in this encounter [facility] 09-26-2023 Evaluation note Encounter Date Diagnosis Assessment Notes Sep, Asymptomatic stenosis of right carotid artery (ICD-10 - I65.21) I recommend seeing this patient back in 1 year. I admonished her for smoking and offered her free resources to quit by the [facility]. She refused. There is no indication for any surgical intervention at this time. [employer] Other 06-14-2023 Evaluation note* Encounter Date Diagnosis [...] issues prior to her next scheduled appointment. [employer] Other 12-07-2022 Evaluation note* Encounter Date Diagnosis [...] for results in the next few weeks. [employer] Other 11-08-2022 Discharge summary Author Dee Kenney [facility] August 14, 2022 1:38pm Note Date/Time August 14, 2022 1 :13pm [facility] [address] [place] [address] Discharge Summary Signed Patient: Carley Quintanilla MR#: [id number] : 1940 Acct:[id number] Age/Sex: 81 / F Adm Date: 2 Loc: Room: [address] [place] [address]: Dee Kenney MD Copies to: [...] Regular Additional Instructions: You should have a [employer] 30 Day Video Editing Internship prior to discharge. Instructions: Carotid Artery Disease, [...] <Electronically signed by Dee Kenney MD> 08/14/22 0113 [facility] Work Phone: 1(547) 102-555411-08-2022 Progress note Author Sergio Escudero [facility] August 14, 2022 11:52am Note Date/Time August 14, 2022 1 0:02am [facility] [address] [place] [address] Vascular Surgery Progress Note Signed with Addosmar Patient: Carley Quintanilla MR#: [id number] : 1940 Acct:[id number] Age/Sex: 81 / F Adm Date: 2 Loc: Room: [address] [place] [address] Type: ADM IN Attending Dr: Dee Kenney [...] signed by Sergio Escudero MD> 08/14/22 1002 [facility] Work Phone: 1(739) 378-502211-07-2022 Progress note Author Dee Kenney [facility] August 13, 2022 12:59pm Note Date/Time August 13, 2022 1 2:44pm [facility] [address] [place] [address] Hospitalist Progress Note Signed Patient: Carley Quintanilla MR#: [id number] : 1940 Acct:[id number] Age/Sex: 81 / F Adm Date: 2 Loc: Room: [address] [place] [address] Type: ADM IN Attending Dr: Dee Kenney [...] Patch.Td24 TRANSDERML 08/11/23 08:59 Not Given DAILY [facility] Omeprazole 20 mg 08/11/22 09:00 08/13/22 [...] <Electronically signed by Dee Kenney MD> 08/13/22 1250 [facility] Work Phone: 1(476) 518-923711-07-2022 Progress note Author Abdulaziz Alvarez [facility] August 13, 2022 11:03am Note Date/Time August 13, 2022 1 1:03am [facility] [address] [place] [address] Cardiology Progress Note Signed Patient: Carley Quintanilla MR#: [id number] : 1940 Acct:[id number] Age/Sex: 81 / F Adm Date: 2 Loc: Room: [address] [place] [address] Type: ADM IN Attending Dr: Dee Kenney [...] cessation education Documented By: Abdulaziz Alvarez MD, [facility] 2 1100 Signed By: <Electronically signed by [facility] Abdulaziz Alvarez> 08/13/22 1103 [facility] Work Phone: 1(455) 609-531511-07-2022 Consult note Author Sergio Escudero [facility] August 13, 2022 9:29am Note Date/Time August 13, 2022 8 :53am [facility] [address] [place] [address] Vascular Surgery Consult Note Signed Patient: Carley Quintanilla MR#: [id number] : 1940 Acct:[id number] Age/Sex: 81 / F Adm Date: 2 Loc: Room: [address] [place] [address] Type: ADM IN Attending Dr: Dee Kenney [...] negative unless noted below or in HPI [facility] Vaccinated for COVID-19?: Yes Medical History HTN [...] signed by Sergio Escudero MD> 08/13/22 0929 [facility] Work Phone: 1(189) 615-486111-06-2022 Progress note Author Dee Kenney [facility] August 12, 2022 4:23pm Note Date/Time August 12, 2022 4 :18pm [facility] [address] [place] [address] Hospitalist Progress Note Signed Patient: Carley Quintanilla MR#: [id number] : 1940 Acct:[id number] Age/Sex: 81 / F Adm Date: 2 Loc: 4N Room: [address] [place] [address] Type: ADM IN Attending Dr: Dee Kenney [...] 1,000 Ml IV 08/10/23 20:29 75 mls/hr .[id number] CARRI Administration Levothyroxine Sodium 75 mcg 08/11/22 [...] signed by Dee Kenney MD> 08/12/22 1623 [facility] Work Phone: 1([phone]) 353-144511-06-2022 Progress note Author Abdulaziz Alvarez [facility] August 12, 2022 10:01am Note Date/Time August 12, 2022 1 0:01am [facility] [address] [place] [address] Cardiology Progress Note Signed Patient: Carley Quintanilla MR#: [id number] : 1940 Acct:[id number] Age/Sex: 81 / F Adm Date: 2 Loc: Room: [address] [place] [address] Type: ADM IN Attending Dr: Dee Kenney [...] cessation education Documented By: Abdulaziz Alvarez MD, [facility] 2 0958 Signed By: <Electronically signed by [facility] Abdulaziz Alvarez> 08/12/22 1001 [facility] Work Phone: 1(460) 511-258411-05-2022 Progress note Author Dee Kenney [facility] August 11, 2022 2:19pm Note Date/Time August 11, 2022 2 :15pm [facility] [address] [place] [address] Hospitalist Progress Note Signed Patient: Carley Quintanilla MR#: [id number] : 1940 Acct:[id number] Age/Sex: 81 / F Adm Date: 2 Loc: Room: [address] [place] [address] Type: ADM IN Attending Dr: Dee Kenney [...] 1,000 Ml IV 08/10/23 20:29 75 mls/hr .[id number] CARRI Administration Levothyroxine Sodium 75 mcg 08/11/22 [...] signed by Dee Kenney MD> 08/11/22 1419 [facility] Work Phone: 1(457) 248-757711-05-2022 Consult note Author Abdulaziz Alvarez [facility] August 11, 2022 1:13pm Note Date/Time August 11, 2022 1 :09pm [facility] [address] [place] [address] Cardiology Consult Note Signed Patient: Carley Quintanilla MR#: [id number] : 1940 Acct:[id number] Age/Sex: 81 / F Adm Date: 2 Loc: Room: [address] [place] [address] Type: ADM IN Attending Dr: Dee Kenney MD Copies to: MD Abdulaziz Ortiz II, MD, [facility] Dee Kenney MD~ Cardiology HPI History [...] with Dr. Kali Maharaj in [facility]. She has been on diltiazem 360 mg daily. The patient has been stable since admission heart rate in the 50s. Diltiazem has been withheld Review of Systems Review of Systems Review of systems: 11 point review of system otherwise was normal. [facility] Vaccinated for COVID-19?: Yes Medical History (Updated [...] Lymph # (Auto) 0.9 L (1.00-4.8) x10E3/uL [place] # (Auto) 0.6 (0.0-0.8) x10E3/uL Eos # [...] 1000 ,000 ml @ 75 mls/hr IV .[id number] [facility] Rx#:[id number] Oral 480 / 480 960 / 960 [...] Tobacco use Documented By: Abdulaziz Alvarez MD, [facility] 2 1304 Signed By: <Electronically signed by [facility] Abdulaziz Alvarez> 08/11/22 1313 [facility] Work Phone: 1(461) 669-507811-04-2022 History and physical note Author eDe Kenney [facility] August 10, 2022 8:17pm Note Date/Time August 10, 2022 8 :03pm [facility] [address] [place] [address] Hospitalist H&P Signed Patient: Carley Quintanilla MR#: [id number] : 1940 Acct:[id number] Age/Sex: 81 / F Adm Date: 2 Loc: Room: [address] [place] [address] Type: ADM IN Attending Dr: Dee Kenney [...] than mentioned in history of presenting illness [facility] Medical History (Updated 08/10/22 @ 20:14 [...] % (Auto) 9.5 % (.) 08/10/22 17:15 [place] % (Auto) 5.7 % (.) 08/10/22 17:15 Eos % (Auto) 0.7 % (.) 08/10/22 17:15 Baso % (Auto) 0.5 % (.) 08/10/22 17:15 Neut # (Auto) 8.3 x10E3/uL (1.8-7.7) H 08/10/22 17:15 Lymph # (Auto) 0.9 x10E3/uL (1.00-4.8) L 08/10/22 17:15 [place] # (Auto) 0.6 x10E3/uL (0.0-0.8) 08/10/22 17:15 [...] pH 5.5 (5.0-9.0) 08/10/22 19:20 Ur Specific [place] 1.014 (1.001-1.030) 08/10/22 19:20 Urine Protein Negative [...] signed by Dee Kenney MD> 08/10/22 2017 [facility] Work Phone: Evaluation noteNo InformationNort [employer] Other Evaluation note* Diagnosis Onset Date Resolution Status KRISTAN (acute kidney injury) ac [place] Bilateral carotid artery disease acute HTN (hypertension) acute Syncope acute Tobacco abuse acute [facility] Work Phone: Evaluation noteNo assessment information available [facility] Work Phone: evaluation note* Diagnosis PVD (peripheral vascular disease) ([facility])- Primary Unspecified peripheral vascular disease Onychomycosis Dermatophytosis [...] history of tobacco use, presenting hazards to [facility] resident History of syncope documented in this encounter [facility] Work Phone: Hisgpyl general Narrative - Reported* Type Description Date Medical History CAROTID STENOSIS BILATERAL Medical History hypertension Medical History hypercholesterolemia Medical History acid reflux Surgical History Foot Surgery Hospitalization History hypertension from [facility] [place] [employer] Other History general Narrative - Reported* Type Description Date Medical History CAROTID STENOSIS BILATERAL Medical History hypertension Medical History hypercholesterolemia Medical History acid reflux Surgical History Foot Surgery Surgical History tonsillectomy Surgical History cataract Hospitalization History hypertension from [employer] Other Progress note Author Abdulaziz Alvarez [facility] August 14, 2022 5:26pm Note Date/Time August 14, 2022 5 :26pm [facility] [address] [place] [address] Cardiology Progress Note Signed Patient: Carley Quintanilla MR#: [id number] : 1940 Acct:[id number] Age/Sex: 81 / F Adm Date: 2 Loc: 4N Room: 2R7347-3 Type: DIS IN Attending Dr: Dee Kenney [...] cessation education Documented By: Abdulaziz Alvarez MD, [facility] 2 1725 Signed By: <Electronically signed by MD XENA Alvarez> 08/14/22 1726 [facility] Work Phone: Summary Purpose Family History [...] Procedures ECG 12 Lead Abdulaziz Alvarez MD [address] [place] [address], [address] [address] Referral ID Status Reason Start Date Expiration Date V isits Requested Visits Authorized [id number] Authorized 03/17/2024 03/17/2025 1 1 Specialty Diagnoses / Procedures Referred By Michael armstrong Referred To Contact Cardiology Diagnoses Primary hypertension Procedures Follow Up In Cardiology Abdulaziz Alvarez MD [address] [place], [place] [address] 2, [address] [address] Abdulaziz Alvarez MD [address] [place] [address] 2, [address] [address] Referral ID Status Reason Start Date Expiration Date V isits Requested Visits Authorized [id number] Authorized 03/17/2024 03/17/2025 1 1 Additional Source Comments INFORMATION SOURCE (unrecogn ized section and content) DATE CREATED AUTHOR 09/15/2018 [facility] DATE CREATED AUTHOR AUTHOR'S ORGANIZ ATION 02/02/2021 [facility] DATE CREATED AUTHOR AUTHOR'S ORGANIZ ATION 08/30/2021 [facility] DATE CREATED AUTHOR AUTHOR'S ORGANIZ ATION 09/22/2021 [facility] DATE CREATED AUTHOR AUTHOR'S ORGANIZ ATION 09/28/2022 [employer] DATE CREATED AUTHOR AUTHOR'S ORGANIZ ATION 03/18/2023 [facility] [place] [facility] DATE CREATED AUTHOR AUTHOR'S ORGANIZ ATION 03/18/2024 [facility] DATE CREATED AUTHOR AUTHOR'S ORGANIZ ATION 04/01/2024 [facility] DATE CREATED AUTHOR AUTHOR'S ORGANIZ ATION 04/02/2024 [facility] d[facility] Specialists EPIC REASON FOR VISIT (unrecogniz ed section and content) Reason Comments Toenail Care Reason Comments Follow-up Dr. Evelyn CAPPS last s een 09/2022 Specialty Diagnoses / Procedures Referred By Contac t Referred To Contact Diagnoses Pre-op evaluation Procedures ECG 12 Lead Abdulaziz Alvarez MD [address] [facility], [place] [address] Referral ID Status Reason Start Date Expiration Date V isits Requested Visits Authorized [id number] Authorized 03/17/2024 03/17/2025 1 1 Care Teams [...] Admit Provider, Attending Provider Active Megan Jenkins RN DIALYSIS Other Provider Active Kalina Nelson LPN Other Provider Active Jhonatan Oakes MD Other Provider Active Raysa Robins NP-C Other Provider Active Shelby Unger MD Other Provider Active Sergio Escudero MD Other Provider Active Team Status: Inactive Member Role Status Dates Kali Maharaj II MD Primary Care Provider Active Raysa Robins NP-C Attending Provider Active [employer] Relationship Specialty Start Date End Date Kali Maharaj MD [address] [place] [place] [address] PCP - [employer] 12/05/22 Kali Maharaj MD [address] [place] [address] PCP - General Internal Medicine 04/10/23 Sarah Lozada LSW [employer] [facility] 10/30/23 [employer] Relationship Specialty Start Date End Date Kali Maharaj MD [address] [place] [address] PCP - [employer] 12/05/22 Kali Maharaj MD [address] [place] [address] PCP - General Internal Medicine 04/10/23 Sarah Lozada LSW [employer] [facility] 10/30/23 [employer] Relationship Specialty Start Date End Date Kali Maharaj MD [address] [place] [address] PCP - [employer] 12/05/22 Kali Maharaj MD [address] [place] [place] [address] PCP - General Internal Medicine 04/10/23 Sarah LozadaTANYA [employer]ice [employer] [facility] 10/30/23 [employer] Relationship Specialty Start Date End Date Kali Maharaj MD [address] [facility] [address] [place] [address] PCP - General Internal Medicine 03/17/24 Goals [...] BE BASED ON THE PRIMARY CLINICAL RECORDS. [employer] provides no warranty or guarantee of the accuracy or completeness of information in this document.
[2024-04-06 08:28] LABS: Alanine Aminotransferase 19 U/L (14-59); Albumin Globulin Ratio 0.9; Albumin Level 2.8 g/dL (3.4-5.0); Alkaline Phosphatase 71 U/L (46-116); Anion Gap 13.9; Aspartate Amino Transferase 16 U/L (15-37); Bilirubin Total 0.3 mg/dL (0.2-1.0); Calcium 8.7 mg/dL (8.5-10.1); Carbon Dioxide 24.8 mmol/L (21.0-32.0); Chloride 108 mmol/L (98-107); Chol HDL Ratio 2.4; Cholesterol 163 mg/dL (<=200); Estimated GFR (African America 47 (>=60); Estimated GFR (Non-African Ame 39 (>=60); Globulin 3.1 g/dL; Glucose 98 mg/dL (74-106); HDL Cholesterol 68 mg/dL (40-60); Potassium 3.7 mmol/L (3.5-5.1); Sodium 143 mmol/L (136-145); Total Protein 5.9 g/dL (6.4-8.2); Triglycerides 69 mg/dL (<=150); VLDL CHOLESTEROL 13.8 mg/dL
== END 2024-04-06 06:39 | disposition home or self-care (01) ==
LOC: LAB 06:38
PROVIDERS: PCP Internal Medicine; Visit Provider Family Medicine
DX: E78.5 Hyperlipidemia, unspecified (principal); I10 Essential (primary) hypertension
CPT/HCPCS: 36415; 80053; 80061

== ENCOUNTER 2024-04-13 08:23 | Outpatient (OUT) | payer MEDICARE, MEDICAID, SELFPAY ==
--- OUTSIDE RECORDS SUMMARY | 2024-04-13 08:32 | XMS_ITS | CCD ---
Author Organization [facility] Care Team Providers Care Transmission Engineer Name Role Phone PHYSICIAN, DEFAULT Unavailable Unavailable [...] NICKO, DR MARTINEZ Primary Care Unavailable BEJ, YULAI Consulting Unavailable NICKO, DR MARTINEZ Primary Care [...] Oakes Other Provider DEEPA Robins Other Provider [phone] MD Shelby Unger Other Provider [phone] MD Sergio Escudero Other Provider [phone] MD Abdulaziz Alvarez Attending Provider MD Abdulaziz Alvarez Attending Provider [phone] Sergio Escudero Unavailable Unavailable Unavailable AlvarezAbdulaziz day [...] Attending Provider DYLON Maharaj Primary Care Provider [phone] DEEPA Robins Attending Provider Kali Maharaj MD Unavailable Kali Maharaj MD Primary Care Provider Neville WATER QUALITY MANAGER, Sarah Unavailable Unavailable Neville WATER QUALITY MANAGER, Sarah Unavailable Kali Maharaj MD Primary Care Provider ABDULAZIZ ALVAREZ Attending Unavailable KALI MAHARAJ Primary Care Unavailable Raysa Robins Attending Unavailable Raysa Robins Admitting Unavailable Klai Maharaj Primary Care Unavailable YULIA MCCRAY Attending Unavailable KALI MAHARAJ Attending Unavailable ISMAEL AQUINO Attending Unavailable YULIA MCCRAY Attending Unavailable KALI MAHARAJ Attending Unavailable PILY YAÑEZ Attending Unavailable SOFIA CONRYO Attending Unavailable KALI MAHARAJ Attending Unavailable Allergies Allergy Classification Reported Allergen(s) Allergy Type Date of Onset Reaction(s) Facility (1 source) Chocolate Drug allergy (disorder) 02-21-2012 [facility] (1 source) Chocolate Drug allergy (disorder) 02-01-2021 [facility] (1 source) Chocolate Drug allergy (disorder) 05-28-2021 [facility] Repository Medications Current Medications Medication Drug [...] Administrative/social admission (4 sources) Lives in a fdc; Translations: [Problems related to living in residential [...] Resolved: 09-21-2022 Episodic Other aftercare (1 source) playground aide (current) use of aspirin; Translations: [LONG-TERM CURRENT USE OF ASPIRIN] Onset: 02-09-2021 Episodic Other aftercare (1 source) Other cleaning validation consultant (current) drug therapy; Translations: [OTH LONG-TERM CURRENT [...] revealed normal sinus rhythm and normal ECG [facility] Work Phone: US carotid doppler BIon 12-2 US carotid doppler BI [facility] Main Roll [address] [place] [address] Ultrasound Report Signed Patient: Carley Quintanilla MR#: [id number] : 1940 Acct:[id number] Age/Sex: 83 / F ADM Date: 09/26/23 Loc: [facility] Room: Type: [facility] Attending Dr: Raysa Robins MANAGED CARE SPECIALIST-C Ordering Provider: Raysa Robins APRN Date of [...] Sergio Escudero MD09/26/2023 1:51 PM Dictation Location: [place] [address] Tech: Olimpia Anmol Transcribed By: ADEEL 09/26/23 1351 Dictated By: Sergio Escudero MD 09/26/23 1350 Signed By: 09/26/23 1351 Normal [facility] Office Visit (Cardiology)on 09-21-2022 Follow-up [...] quit smoking.; Status:Complete - Retrospective Authorization; Done: [id number] You need to stop smoking. Though it is not easy, more than half of all adult smokers have quit. We encourage you to write down all the reasons you should quit smoking and set a quit date for yourself. Ask us how we can help. You may also call [phone]-NOW for free resources and assistance.; Status:Complete - Retrospective Authorization; Done: [id number] Tobacco Use Screening; Status:Complete; Done: [id number] Patient Instructions Please bring all medicines, vitamins, [...] negative for complaint. Vitals Vital Signs Recorded: [id number] 12:15PM Heart Rate84, R Radial Blwsmlqx489, RUE Segnamofa53, RUE Height5 ft 6 in Hisueq799 lb BMI Rnjqcbsyvh61.05 kg/m2 BSA Calculated1.76 Tobacco Usea) Yes Patient encouraged to stop using tobacco productsYes PHQ-2 Patient Declined/Screening not indicatedYes (more content not included)... Normal Just Eat Tobacco Screening.on 022 Fall risk assessment a) No falls within the last year formerly [facility] [employer] DO Work Phone: Tobacco use status CP a) Yes formerly [facility] [employer] DO Work Phone: Tobacco Screening. Yes [facility] [employer] 250 DO Work Phone: No Panel Informationon 09-14 formerly [facility] [employer] DO Work Phone: Creatinine and Glomerular fi ltration rate.predicted panel (S/P/Bld)Ordered By: Dee Kenney on 08-12-2022 Creatinine [Mass/Vol] 1.16 mg/dL 0.44-1.03 [facility] Estimated glomerular filtrat ion rate (GFR) non- AmericanOrdered By: Dee Kenney on 08-12-2022 GFR/1.73 sq M.predicted among non-blacks MDRD (S/P/Bld) [Vol rate/Area] 45 mL/Min [facility] No Panel InformationOrdered By: Dee Kenney on 08-12-2022 Estimated GFR () 54 mL/Min [facility] Comment on above: GFR estimated refere nce range: According to KDOQI guidelines, <60 ml/min/1.73m2 is sufficient to diagnose a patient with chronic kidney disease. Pharmacy Creatinine Clearance (Chem 35.61 [facility] Serum or plasma anion gap de terminationOrdered By: Dee Kenney on 08-12-2022 Anion gap [Moles/Vol] 11.3 mmol/L 6.0-15.0 [facility] Serum or plasma calcium azalea urement (mass/volume)Ordered By: Dee Kenney on 08-12-2022 Calcium [Mass/Vol] 8.6 mg/dL 8.2-10.2 [facility] Serum or plasma chloride janet surement (moles/volume)Ordered By: Dee Kenney on 08-12-2022 Chloride [Moles/Vol] 110 mmol/L 95-114 [facility] Serum or plasma glucose azalea urement (mass/volume)Ordered By: Dee Kenney on 08-12-2022 Glucose [Mass/Vol] 95 mg/dL 70-100 [facility] Comment on above: ADA recommended refe rence rangeRandom Glucose Reference Range is dependent on time and content of last meal. Glucose of more than 200 mg/dL in a nonstressed, ambulatory subject supports the diagnosis of Diabetes Mellitus. Serum or plasma potassium me asurement (moles/volume)Ordered By: Dee Kenney on 08-12-2022 Potassium [Moles/Vol] 3.7 mmol/L 3.5-5.1 [facility] Serum or plasma sodium measu rement (moles/volume)Ordered By: Dee Kenney on 08-12-2022 Sodium [Moles/Vol] 141 mmol/L 136-146 [facility] Serum or plasma total carbon dioxide measurement (moles/volume)Ordered By: eDe Kenney on 08-12-2022 CO2 [Moles/Vol] 23.4 mmol/L 22.0-30.0 [facility] Serum or plasma urea nitroge n measurement (mass/volume)Ordered By: Dee Kenney on 08-12-2022 Urea nitrogen [Mass/Vol] 28 mg/dL 9-23 [facility] TSH DL <= 0.005 mIU/L QnOrde red By: Dee Kenney on 08-11-2022 TSH Qn 2.20 m[IU]/L 0.45-5.33 [facility] Basophils Auto (Bld) [#/Vol] Ordered By: Edward Bernstein on 08-10-2022 Basophils (Bld) [#/Vol] 0.1 10*3/uL 0.0-0.2 [facility] Basophils/100 WBC Auto (Bld) Ordered By: Edward Bernstein on 08-10-2022 Basophils/100 WBC (Bld) 0.5 % . [facility] Bilirubin Test strip Ql (U)O rdered By: Edward Bernstein on 08-10-2022 Bilirubin Ql (U) Negative Negative [facility] Body fluid albumin measureme nt (mass/volume)Ordered By: Edward Bernstein on 08-10-2022 Albumin (Body fld) [Mass/Vol] 3.3 g/dL 3.2-5.5 [facility] COVID CepheidOrdered By: Rima Bernstein on 08-10-2022 SARS-CoV-2 (COVID-19) Ab IA Ql Negative Negative [facility] Comment on above: This is a duplicate CepAhonya Xpert Xpress CoV-2/Flu/RSV Plus RNA by RT-PCR result to be used for statistical tracking purpose only. SARS-CoV-2 (COVID-19) RNA ALLISON+probe Ql (Unsp spec) [facility] Color Auto (U)Ordered By: Harjit Bernstein on 08-10-2022 Color (U) Yellow Yellow [facility] Eosinophils Auto (Bld) [#/Vo l]Ordered By: Edward Bernstein on 08-10-2022 Eosinophils (Bld) [#/Vol] 0.1 10*3/uL 0.0-0.45 [facility] Eosinophils/100 WBC Auto (Bl d)Ordered By: Edward Bernstein on 08-10-2022 Eosinophils/100 WBC (Bld) 0.7 % . [facility] Erythrocyte distribution wid th Auto (RBC) [Ratio]Ordered By: Edward Bernstein on 08-10-2022 Erythrocyte distribution width (RBC) [Ratio] 13.4 % 11.9-15.3 [facility] Globulin Calc (S) [Mass/Vol] Ordered By: Edward Bernstein on 08-10-2022 Globulin (S) [Mass/Vol] 2.7 g/dL [facility] Glucose Glucometer (dC) [M ass/Vol]Ordered By: Edward Bernstein on 08-10-2022 Glucose [Mass/Vol] 101 mg/dL [facility] Comment on above: Random Glucose Refer ence Range is dependent on time and content of last meal. Glucose of more than 200 mg/dL in a nonstressed, ambulatory subject supports the diagnosis of Diabetes Mellitus. Hematocrit Auto (Bld) [Volum e fraction]Ordered By: Edward Bernstein on 08-10-2022 Hematocrit (Bld) [Volume fraction] 40.9 % 34.0-46.4 [facility] Hemoglobin [Mass/volume] in BloodOrdered By: Edward Bernstein on 08-10-2022 Hemoglobin (Bld) [Mass/Vol] 13.3 g/dL 11.8-15.4 [facility] Ketones Auto test strip (U) [Mass/Vol]Ordered By: Edward Bernstein on 08-10-2022 Ketones (U) [Mass/Vol] Trace Negative [facility] - Chemistry and C hemistry - challengeOrdered By: Edward Bernstein on 08-10-2022 Magnesium [Mass/Vol] 2.2 mg/dL 1.6-2.6 [facility] Natriuretic peptide B (Bld) [Mass/Vol] 29.0 pg/mL 5-100 [facility] Laboratory - CoagulationOrde red By: Edward Bernstein on 08-10-2022 PT Coag (PPP) [Time] 11.0 s 9.0-12.9 [facility] - Hematology and Cell countsOrdered By: Edward Bernstein on 08-10-2022 Nucleated RBC/100 WBC (Bld) [Ratio] 0.0 % 0-0.5 [facility] Leukocytes [#/volume] in Blo od by Automated countOrdered By: Edward Bernstein on 08-10-2022 WBC (Bld) [#/Vol] 9.9 10*3/uL 4.5-11.0 [facility] Lymphocytes Auto (Bld) [#/Vo l]Ordered By: Edward Bernstein on 08-10-2022 Lymphocytes (Bld) [#/Vol] 0.9 10*3/uL 1.00-4.8 [facility] Lymphocytes/100 WBC Auto (Bl d)Ordered By: Edward Bernstein on 08-10-2022 Lymphocytes/100 WBC (Bld) 9.5 % . [facility] MCH Auto (RBC) [Entitic mass ]Ordered By: Edward Bernstein on 08-10-2022 MCH (RBC) [Entitic mass] 30.6 pg 24.7-34.3 [facility] MCHC Auto (RBC) [Mass/Vol]Or dered By: Edward Bernstein on 08-10-2022 MCHC (RBC) [Mass/Vol] 32.6 g/dL 32.0-35.0 [facility] MCV Auto (RBC) [Entitic vol] Ordered By: Edward Bernstein on 08-10-2022 MCV (RBC) [Entitic vol] 94.0 fL 80-100 [facility] Monocytes Auto (Bld) [#/Vol] Ordered By: Edward Bernstein on 08-10-2022 Monocytes (Bld) [#/Vol] 0.6 10*3/uL 0.0-0.8 [facility] Monocytes/100 WBC Auto (Bld) Ordered By: Edward Bernstein on 08-10-2022 Monocytes/100 WBC (Bld) 5.7 % . [facility] Neutrophils Auto (Bld) [#/Vo l]Ordered By: Edward Bernstein on 08-10-2022 Neutrophils (Bld) [#/Vol] 8.3 10*3/uL 1.8-7.7 [facility] Neutrophils/100 WBC Auto (Bl d)Ordered By: Edward Bernstein on 08-10-2022 Neutrophils/100 WBC (Bld) 83.6 % . [facility] Nitrite Test strip Ql (U)Ord ered By: Edward Bernstein on 08-10-2022 Nitrite Ql (U) Negative Negative [facility] Platelet mean volume Auto (B ld) [Entitic vol]Ordered By: Edward Bernstein on 08-10-2022 Platelet mean volume (Bld) [Entitic vol] 10.2 fL 6.3-10.7 [facility] Platelet poor plasma interna tional normalized ratio (INR) by coagulation assay (relatOrdered By: Edward Bernstein on 08-10-2022 INR Coag (PPP) [Relative time] 1.0 {INR} [facility] Comment on above: INR Therapeutic Rang [...] 08-10-2022 Platelets (Bld) [#/Vol] 193 10*3/uL 150-450 [facility] Protein Auto test strip (U) [Mass/Vol]Ordered By: Edward Bernstein on 08-10-2022 Protein (U) [Mass/Vol] Negative Negative [facility] Protein [Mass/volume] in Ser um or PlasmaOrdered By: Edward Bernstein on 08-10-2022 Protein [Mass/Vol] 6.0 g/dL 6.1-7.9 [facility] RBC Auto (Bld) [#/Vol]Ordere d By: Edward Bernstein on 08-10-2022 RBC (Bld) [#/Vol] 4.36 10*6/uL 3.60-5.00 [facility] Serum or plasma alanine jensen otransferase measurement without P-5'-P (enzymatic activiOrdered By: Edward Bernstein on 08-10-2022 ALT No additional P-5'-P [Catalytic activity/Vol] 12 U/L 10-60 [facility] Serum or plasma albumin/glob ulin mass ratioOrdered By: Edward Bernstein on 08-10-2022 Albumin/Globulin [Mass ratio] 1.2 {ratio} [facility] Serum or plasma alkaline sondra sphatase measurement (enzymatic activity/volume)Ordered By: Edward Bernstein on 08-10-2022 ALP [Catalytic activity/Vol] 52 U/L 32-92 [facility] Serum or plasma aspartate am inotransferase measurement (enzymatic activity/volume)Ordered By: Edward Bernstein on 08-10-2022 AST [Catalytic activity/Vol] 16 U/L 10-42 [facility] Serum or plasma total biliru bin measurement (mass/volume)Ordered By: Edward Bernstein on 08-10-2022 Bilirubin [Mass/Vol] 0.5 mg/dL 0.3-1.2 [facility] Specific gravity Auto test s trip (U) [Rel density]Ordered By: Edward Bernstein on 08-10-2022 Specific gravity (U) [Rel density] 1.014 1.001-1.03 0 [facility] Troponin I.cardiac [Mass/vol ume] in Serum or Plasma by High sensitivity methodOrdered By: Edward Bernstein on 08-10-2022 Troponin I.cardiac High sensitivity method [Mass/Vol] 9 pg/mL 0-15 [facility] Urine clarity by refractomet ry automatedOrdered By: Edward Bernstein on 08-10-2022 Clarity Refractometry automated (U) Clear Clear [facility] Urine glucose measurement by automated test strip (mass/volume)Ordered By: Edward Bernstein on 08-10-2022 Glucose Auto test strip (U) [Mass/Vol] Normal mg/dL Normal [facility] Urine hemoglobin detection b y automated test stripOrdered By: Edward Bernstein on 08-10-2022 Hemoglobin Auto test strip Ql (U) Negative Negative [facility] Urine leukocyte esterase det ection by automated test stripOrdered By: Edward Bernstein on 08-10-2022 Leukocyte esterase Auto test strip Ql (U) Negative Negative [facility] Urobilinogen Auto test strip (U) [Mass/Vol]Ordered By: Edward Bernstein on 08-10-2022 Urobilinogen (U) [Mass/Vol] Normal mg/dL Normal [facility] pH Auto test strip (U)Ordere d By: Edward Bernstein on 08-10-2022 pH (U) 5.5 [pH] 5.0-9.0 [facility] MRI Brain w/oon 09-20-2021 MRI Brain w/o CLINICAL HISTORY: COMPARISON: TECHNIQUE: [facility] MRI of the brain was performed [...] by MATTHEW TRIPLETT on 09/21/2021 1240 Normal [facility] Assistant Broker LYME DISEASE, WESTERN BLOTon 08-26-2021 IgG P18 Ab. Absent Normal [facility] Comment on above: Performed By: #### L YMWB #### [facility] [address] [place] [address] Dr. Christian Lebron IgG P23 Ab. Absent Normal [facility] Comment on above: Performed By: #### L YMWB #### [facility] [address] [place] [address] [address] Christian Lebron IgG P28 Ab. Absent Normal [facility] Comment on above: Performed By: #### L YMWB #### [facility] [address] [place] [address] [address] Christian Lebron IgG P30 Ab. Absent [facility] Comment on above: Performed By: #### L YMWB #### [facility] [address] [place] [address] [address] Christian Lebron IgG P39 Ab. Absent Normal [facility] Comment on above: Performed By: #### L YMWB #### [facility] [address] [place] [address] Dr. Christian Lebron IgG P41 Ab. Absent [facility] Comment on above: Performed By: #### L YMWB #### [facility] [address] [place] [address] Dr. Christian Lebron IgG P45 Ab. Absent Normal [facility] Comment on above: Performed By: #### L YMWB #### [facility] [address] [place] [address] Dr. Christian Lebron IgG P58 Ab. Absent [facility] Comment on above: Performed By: #### L YMWB #### [facility] [address] [place] [address] Dr. Christian Lebron IgG P66 Ab. Absent [facility] Comment on above: Performed By: #### L YMWB #### [facility] [address] [place] [address] Dr. Christian Lebron IgG P93 Ab. Absent [facility] Comment on above: Performed By: #### L YMWB #### [facility] [address] [place] [address] Dr. Christian Lebron IgM P23 Ab. Absent [facility] Comment on above: Performed By: #### L YMWB #### [facility] [address] [place] [address] Dr. Christian Lebron IgM P39 Ab. Absent [facility] Comment on above: Performed By: #### L YMWB #### [facility] [address] [place] [address] Dr. Christian Lebron IgM P41 Ab. Absent [facility] Comment on above: Performed By: #### L YMWB #### [facility] [address] [place] [address] Dr. Christian Lebron Lyme IgG WB Interp. Negative [facility] Comment on above: Result Comment: Posi tive: 5 of the following Borrelia-specific bands: 18,23,28,30,39,41,45,58, 66, and 93. Negative: No bands or banding patterns which do not meet positive criteria. Performed By: #### L YMWB #### [facility] [address] [place] [address] [address] Christian Lebron Lyme IgM WB Interp. Negative Normal [facility] Comment on above: Result Comment: Note [...] are those recommended by CDC/ASTPHLD. p23=Osp C, e49=edygrpfoi . Note: Sera from individuals with the following may cross react in the Lyme Line Blot assays: other spirochetal diseases (periodontal disease, leptospirosis, relapsing fever, yaws, and pinta); connective autoimmune (Rheumatoid Arthritis and Systemic Lupus Erythematosus and also individuals with Antinuclear Antibody); other infections (Ragsdale Spotted Fever; Roel-Briones Virus, and Cytomegalovirus). . Performed By: #### L YMWB #### [facility] [address] [place] [address] [address] Christian Lebron METHYLMALONIC ACID (MMA)on 10-26-2020 Disclaimer: Comment Normal [facility] Comment on above: Result Comment: This test was developed and its performance characteristics determined by [facility]. It has not been cleared or approved by the Food and Drug Administration. Performed By: #### M MA2 #### [facility] [address] [place] [address] [address] Christian Lebron Methylmalonic Acid, Serum 255 nmol/L Normal 0-378 [facility] Comment on above: Performed By: #### M MA2 #### [facility] [address] [place], [place] [id number] Dr. Christian Lebron HOMOCYSTEINEon 08-25-2021 Homocyst(e)ine, Plasma 29.7 umol/L Critically high 0.0-21. 3 [facility] Comment on above: Result Comment: Spec imen quantity insufficient for verification by repeat analysis. Performed By: #### H OMCY #### [facility] [address] [place] [address] Dr. Christian Lebron RPR QUANTon 08-24-2021 Rapid Plasma Reagin, Quant Non-Reactive Normal NonRea<1:1 [facility] Comment on above: Performed By: #### R PRQ #### [facility] [address] [place] [address] Dr. Christian Lebron AMMONIAon 2021 Ammonia (P) [Moles/Vol] 9 umol/L Critically low 10-30 [facility] Comment on above: Performed By: #### M MA2 #### [facility] [address] [place] [address] Dr. Christian Lebron CRPon 2021 CRP [Mass/Vol] mg/L Normal <=1.0 [facility] Comment on above: Performed By: #### M MA2 #### [facility] [address] [place] [address] Dr. Christian Lebron FOLATEon 2021 FOLATE 4.50 ng/mL Normal >=2.76 [facility] Comment on above: Performed By: #### F T4, VITB12, FOL #### [facility] [address] [place] [address] Dr. Christian Lebron FREE T4on 2021 Free T4 [Mass/Vol] 0.98 ng/dL Normal 0.78-2.19 [facility] Comment on above: Performed By: #### F T4, VITB12, FOL #### [facility] [address] [place] [address] Dr. Christian Lebron LIVER PROFILEon 2021 Albumin [Mass/Vol] 3.6 g/dL Normal 3.5-5.0 [facility] Comment on above: Performed By: #### M MA2 #### [facility] [address] [place] [address] Dr. Christian Lebron Albumin/Globulin [Mass ratio] 1.0 {ratio} Normal [facility] Comment on above: Performed By: #### M MA2 #### [facility] [address] [place] [address] [address] Christian Lebron ALP [Catalytic activity/Vol] 96 U/L Normal 38-126 [facility] Comment on above: Performed By: #### M MA2 #### [facility] [address] [place] [address] Dr. Christian Lebron ALT [Catalytic activity/Vol] 14 U/L Normal 9-52 [facility] Comment on above: Performed By: #### M MA2 #### [facility] [address] [address] [address] Christian Lebron AST [Catalytic activity/Vol] 17 U/L Normal 14-36 [facility] Comment on above: Performed By: #### M MA2 #### [facility] [address] [place] [address] Dr. Christian Lebron BILI, CONJUGATED 0.1 mg/dL Normal 0.0-0.3 [facility] Comment on above: Performed By: #### M MA2 #### [facility] [address] [place] [address] Dr. Christian Lebron Bilirubin [Mass/Vol] 0.3 mg/dL Normal 0.2-1.3 [facility] Comment on above: Performed By: #### M MA2 #### [facility] [address] [place] [address] Dr. Christian Lebron Globulin (S) [Mass/Vol] 3.7 g/dL Normal [facility] Comment on above: Performed By: #### M MA2 #### [facility] [address] [place] [address] Dr. Christian Lebron Protein [Mass/Vol] 7.3 g/dL Normal 6.1-8.2 [facility] Comment on above: Performed By: #### M MA2 #### [facility] [address] [place] [address] Dr. Christian Lebron SED RATE [facility] 2020 SED RATE 31 mm/hr Critically high <=30 [facility] Comment on above: Performed By: #### H JAYDENCY #### [facility] [address] [place], [place] [id number] Dr. Christian Lebron TSHon 2021 TSH 3.087 uIU/mL Normal 0.470-4.68 0 [facility] Comment on above: Performed By: #### M MA2 #### [facility] [address] [address] [address] Christian Lebron TSH RANGE SEE BELOW Normal [facility] Comment on above: Result Comment: <0.3 4 UIU/ml HYPERTHYROID 0.34-5.60 UIU/ml EUTHYROID >5.60 UIU/ml HYPOTHYROID Performed By: #### M MA2 #### [facility] [address] [address] [address] Christian Lebron VITAMIN B12on 2021 Cobalamin (Vitamin B12) [Mass/Vol] 521.0 pg/mL Normal 239.0-931. 0 [facility] Comment on above: Performed By: #### F T4, VITB12, FOL #### [facility] [address] [place] [address] Dr. Christian Lebron XR DEXA BONE DENSITYon [...] OMAR SOTELO Date: 2021-07-10 14:50 Normal [facility] CBC AUTO DIFFon 02-02-2021 BASO # 0.1 103/ul Normal 0.0-0.1 [facility] Comment on above: Performed By: #### C BC #### [facility] [address] [place] [id number] Lauri Pily Basophils/100 WBC (Bld) 0.4 % Normal 0.2-2.0 [facility] Comment on above: Performed By: #### C BC #### [facility] [address] [place], [place] [id number] Lauri Pily EO # 0.1 103/ul Normal 0.0-0.7 [facility] Comment on above: Performed By: #### C BC #### [facility] [address] [place], [place] [id number] Lauri Pily Eosinophils/100 WBC (Bld) 0.9 % Normal 0.9-7.0 [facility] Comment on above: Performed By: #### C BC #### [facility] [address] [place] [address] Lauri Pily Erythrocyte distribution width (RBC) [Ratio] 14.2 % Normal 11.0-15.0 [facility] Comment on above: Performed By: #### C BC #### [facility] [address] [place], [place] [id number] Lauri Pily Hematocrit (Bld) [Volume fraction] 40.8 % Normal 36.0-48.0 [facility] Comment on above: Performed By: #### C BC #### [facility] [address] [place], [place] [id number] Lauri Pily Hemoglobin (Bld) [Mass/Vol] 13.1 g/dL Normal 12.0-16.0 [facility] Comment on above: Performed By: #### C BC #### [facility] [address] [place] [address] Lauri Pily IG # 0.06 10e3/ul Critically high 0.00-0.03 [facility] Comment on above: Performed By: #### C BC #### [facility] [address] [place], [place] [id number] Lauri Pily IG % 0.5 % Normal 0.0-0.5 [facility] Comment on above: Performed By: #### C BC #### [facility] [address] [place] [address] Lauri Pily LYMPH # 2.4 103/ul Normal 1.2-3.8 [facility] Comment on above: Performed By: #### C BC #### [facility] [address] [place], [place] [id number] Lauri Pily Lymphocytes/100 WBC (Bld) 20.7 % Normal 20.5-60.0 [facility] Comment on above: Performed By: #### C BC #### [facility] [address] [place], [place] [id number] Lauri Pily MANUAL DIFF REQ NO Normal [facility] Comment on above: Performed By: #### C BC #### [facility] [address] [place], [place] [id number] Lauri Pily MCH (RBC) [Entitic mass] 28.5 pg Normal 26.7-34.0 [facility] Comment on above: Performed By: #### C BC #### [facility] [address] [place] [address] Lauri Pily MCHC (RBC) [Mass/Vol] 32.1 g/dL Normal 29.9-35.2 [facility] Comment on above: Performed By: #### C BC #### [facility] [address] [place] [address] Lauri Pily MCV (RBC) [Entitic vol] 88.9 fL Normal 81.0-99.0 [facility] Comment on above: Performed By: #### C BC #### [facility] [address] [place], [place] [id number] Lauri Pily MONO # 0.9 103/ul Critically high 0.3-0.8 [facility] Comment on above: Performed By: #### C BC #### [facility] [address] [place], [place] [id number] Lauri Pily Monocytes/100 WBC (Bld) 7.7 % Normal 1.7-12.0 [facility] Comment on above: Performed By: #### C BC #### [facility] [address] [place] [address] Lauri Pily NEUT # 8.1 103/ul Critically high 1.4-6.5 [facility] Comment on above: Performed By: #### C BC #### [facility] [address] [place], [place] [id number] Lauri Nascimento Neutrophils/100 WBC (Bld) 69.8 % Normal 43.0-75.0 [facility] Comment on above: Performed By: #### C BC #### [facility] [address] [place] [address] Lauri Nascimento Platelet mean volume (Bld) [Entitic vol] 11.9 fL Normal 9.5-13.5 [facility] Comment on above: Performed By: #### C BC #### [facility] [address] [place] [address] Lauri Nascimento PLT 197 103/ul Normal 150-450 [facility] Comment on above: Performed By: #### C BC #### [facility] [address] [place] [address] Lauri Nascimento RBC 4.59 106/ul Normal 4.20-5.40 [facility] Comment on above: Performed By: #### C BC #### [facility] [address] [place] [address] Lauri Nascimento WBC 11.6 103/ul Critically high 4.0-11.0 [facility] Comment on above: Performed By: #### C BC #### [facility] [address] [place] [address] Lauri Nascimento PROF CHEM 8 (BAS METB)on Anion gap [Moles/Vol] 12.7 mmol/L Normal Th [facility] Comment on above: Performed By: #### H OMCY #### [facility] [address] [place] [address] Dr. Christian Lebron Calcium [Mass/Vol] 9.1 mg/dL Normal 8.4-10.2 [facility] Comment on above: Performed By: #### H OMCY #### [facility] [address] [place] [address] Dr. Christian Lebron Chloride [Moles/Vol] 110 mmol/L Critically high 98-107 [facility] Comment on above: Performed By: #### H OMCY #### [facility] [address] [place] [address] Dr. Christian Lebron CO2 [Moles/Vol] 21.7 mmol/L Critically low 22.0-30.0 [facility] Comment on above: Performed By: #### H OMCY #### [facility] [address] [place] [address] Dr. Christian Lebron Creatinine [Mass/Vol] 1.25 mg/dL Critically high 0.52-1.04 [facility] Comment on above: Performed By: #### H OMCY #### [facility] [address] [place] [address] Dr. Christian Lebron EGFR-AF ICELANDIC 50 mL/min/1.73m2 Critically low >=60 [facility] Comment on above: Performed By: #### H OMCY #### [facility] [address] [place] [address] Dr. Christian Lebron EGFR-NON AF ICELANDIC 41 mL/min/1.73m2 Critically low >=60 [facility] Comment on above: Performed By: #### H OMCY #### [facility] [address] [place] [address] Dr. Christian Lebron Glucose [Mass/Vol] 117 mg/dL Critically high 74-106 [facility] Comment on above: Performed By: #### H OMCY #### [facility] [address] [place] [address] Dr. Christian Lebron Potassium [Moles/Vol] 3.4 mmol/L Normal 3.4-5.0 [facility] Comment on above: Performed By: #### H OMCY #### [facility] [address] [place] [address] Dr. Christian Lebron Sodium [Moles/Vol] 141 mmol/L Normal 137-145 [facility] Comment on above: Performed By: #### H OMCY #### [facility] [address] [place] [address] Dr. Christian Lebron Urea nitrogen [Mass/Vol] 28.0 mg/dL Critically high 7.0-17.0 [facility] Comment on above: Performed By: #### H OMCY #### [facility] [address] [place] [address] Dr. Christian Lebron Urea nitrogen/Creatinine [Mass ratio] 22.4 mg/mg Normal [facility] Comment on above: Performed By: #### H OMCY #### [facility] [address] [place] [address] Dr. Christian Lebron CBC AUTO DIFFon 02-01-2021 BASO # 0.1 103/ul Normal 0.0-0.1 [facility] Comment on above: Performed By: #### M MA2 #### [facility] [address] [place] [address] Dr. Christian Lebron Basophils/100 WBC (Bld) 0.5 % Normal 0.2-2.0 [facility] Comment on above: Performed By: #### M MA2 #### [facility] [address] [place] [address] Dr. Christian Lebron EO # 0.1 103/ul Normal 0.0-0.7 [facility] Comment on above: Performed By: #### M MA2 #### [facility] [address] [place] [address] Dr. Christian Lebron Eosinophils/100 WBC (Bld) 1.0 % Normal 0.9-7.0 [facility] Comment on above: Performed By: #### Khadar MA2 #### [facility] [address] [place] [address] Dr. Christian Lebron Erythrocyte distribution width (RBC) [Ratio] 13.9 % Normal 11.0-15.0 [facility] Comment on above: Performed By: #### M MA2 #### [facility] [address] [place] [address] Dr. Christian Lebron Hematocrit (Bld) [Volume fraction] 38.7 % Normal 36.0-48.0 [facility] Comment on above: Performed By: #### M MA2 #### [facility] [address] [place] [address] Dr. Christian Lebron Hemoglobin (Bld) [Mass/Vol] 12.3 g/dL Normal 12.0-16.0 [facility] Comment on above: Performed By: #### M MA2 #### [facility] [address] [place] [address] Dr. Christian Lebron IG # 0.04 10e3/ul Critically high 0.00-0.03 [facility] Comment on above: Performed By: #### Khadar MA2 #### [facility] [address] [place] [address] Dr. Christian Lebron IG % 0.4 % Normal 0.0-0.5 [facility] Comment on above: Performed By: #### Khadar MA2 #### [facility] [address] [place] [address] Dr. Christian Lebron LYMPH # 2.0 103/ul Normal 1.2-3.8 [facility] Comment on above: Performed By: #### Khadar MA2 #### [facility] [address] [place] [address] Dr. Christian Lebron Lymphocytes/100 WBC (Bld) 22.0 % Normal 20.5-60.0 [facility] Comment on above: Performed By: #### Khadar MA2 #### [facility] [address] [place] [address] Dr. Christian Lebron MANUAL DIFF REQ NO Normal [facility] Comment on above: Performed By: #### Khadar HORNE2 #### [facility] [address] [place] [address] Dr. Christian Lebron MCH (RBC) [Entitic mass] 29.0 pg Normal 26.7-34.0 [facility] Comment on above: Performed By: #### Khadar HORNE2 #### [facility] [address] [place] [address] Dr. Christian Lebron MCHC (RBC) [Mass/Vol] 31.8 g/dL Normal 29.9-35.2 [facility] Comment on above: Performed By: #### Khadar HORNE2 #### [facility] [address] [place] [address] Dr. Christian Lebron MCV (RBC) [Entitic vol] 91.3 fL Normal 81.0-99.0 [facility] Comment on above: Performed By: #### Khadar MA2 #### [facility] [address] [place] [address] Dr. Christian Lebron MONO # 0.8 103/ul Normal 0.3-0.8 [facility] Comment on above: Performed By: #### Khadar MA2 #### [facility] [address] [place] [address] Dr. Christian Lebron Monocytes/100 WBC (Bld) 8.7 % Normal 1.7-12.0 [facility] Comment on above: Performed By: #### Khadar HORNE2 #### [facility] [address] [place] [address] Dr. Christian Lebron NEUT # 6.2 103/ul Normal 1.4-6.5 [facility] Comment on above: Performed By: #### Khadar HORNE2 #### [facility] [address] [place] [address] Dr. Christian Lebron Neutrophils/100 WBC (Bld) 67.4 % Normal 43.0-75.0 [facility] Comment on above: Performed By: #### Khadar HORNE2 #### [facility] [address] [place] [address] Dr. Christian Lebron Platelet mean volume (Bld) [Entitic vol] 11.9 fL Normal 9.5-13.5 [facility] Comment on above: Performed By: #### Khadar HORNE2 #### [facility] [address] [place] [address] Dr. Christian Lebron PLT 175 103/ul Normal 150-450 [facility] Comment on above: Performed By: #### Khadar HORNE2 #### [facility] [address] [place] [address] Dr. Christian Lebron RBC 4.24 106/ul Normal 4.20-5.40 [facility] Comment on above: Performed By: #### Khadar HORNE2 #### [facility] [address] [place] [address] Dr. Christian Lebron WBC 9.1 103/ul Normal 4.0-11.0 [facility] Comment on above: Performed By: #### M MA2 #### [facility] [address] [place] [address] HEAD WO CONon [...] YAQUELIN ANSARI Date: 2021-01-31 22:45 Normal [facility] ECHO LIMITED STUDYon 021 ECHO LIMITED STUDY Patient: CARLEY QUINTANILLA Exam Date: 02/01/2021 : 1940 Gender:F Ordering : DR. LULU FRIEDMAN . Admission #: [id number] Family : DR KALI MAHARAJ M.D. Order #: [id number] CLICK HERE TO VIEW EXAM ECHOCARDIOGRAM REPORT [...] Area(A4C): 15.60 cm2 Left Atrium Systolic Volume(A2C): 14922 mm3 Left Atrium Systolic Volume(A4C): 72076 mm3 Mitral Valve Right Ventricle Aorta AO Root Diam: 3.10 cm Aortic Valve Tricuspid Valve Pulmonic Valve Right Atrium Dictated by: Max Ruelas M.D. on 02/01/2021 at 13:45 Approved by: Max Ruelas M.D. on 02/01/2021 at 13:51 Normal [facility] ER URINE PROFILEon 1 Bilirubin Ql (U) Negative Normal NEGATIVE [facility] Comment on above: Performed By: #### E RUR #### [facility] [address] [place] [address] Lauri Nascimento Clarity (U) CLEAR Normal CLEAR [facility] Comment on above: Performed By: #### E RUR #### [facility] [address] [place] [address] Lauri Pily Color (U) LT. YELLOW Normal YELLOW [facility] Comment on above: Performed By: #### E RUR #### [facility] [address] [place] [address] Lauri Iply ERUAHD A micrscopic examina tion will be performed if indicated. Normal [facility] Comment on above: Performed By: #### E RUR #### [facility] [address] [place] [address] Lauri Pily Glucose Ql (U) Negative Normal NEGATIVE [facility] Comment on above: Performed By: #### E RUR #### [facility] [address] [place] [address] Lauri Pily Hemoglobin Ql (U) Negative Normal NEGATIVE [facility] Comment on above: Performed By: #### E RUR #### [facility] [address] [place] [address] Lauri Pily Ketones Ql (U) TRACE Abnormal NEGATIVE [facility] Comment on above: Performed By: #### E RUR #### [facility] [address] [place] [address] Lauri Pily LEUKOCYTES Negative Normal NEGATIVE [facility] Comment on above: Performed By: #### E RUR #### [facility] [address] [place] [address] Lauri Pily Nitrite Ql (U) Negative Normal NEGATIVE [facility] Comment on above: Performed By: #### E RUR #### [facility] [address] [place] [address] Lauri Pily pH (U) 5.0 [pH] Normal 5-9 [facility] Comment on above: Performed By: #### E RUR #### [facility] [address] [place] [address] Lauri Pily SPEC GRAVITY 1.025 Normal 1.005-<=1. 025 [facility] Comment on above: Performed By: #### E RUR #### [facility] [address] [place] [address] Lauri Nascimento UA PROTEIN TRACE Normal NEGATIVE/ TRACE [facility] Comment on above: Performed By: #### E RUR #### [facility] [address] [place] [address] Laurilaura Nascimento UR MICRO IND NOT INDICATED Normal [facility] Comment on above: Performed By: #### E RUR #### [facility] [address] [place] [address] Laurilaura Nascimento Urobilinogen Qn (U) 0.2 {Irinoe'U}/dL Normal 0.2 - 1. 0 [facility] Comment on above: Performed By: #### E RUR #### [facility] [address] [place] [address] Lauri Nascimento PROF CHEM 8 (BAS METB)on Anion gap [Moles/Vol] 15.6 mmol/L Normal [facility] Comment on above: Performed By: #### Khadar HORNE2 #### [facility] [address] [place] [address] Dr. Christian Lebron Calcium [Mass/Vol] 8.8 mg/dL Normal 8.4-10.2 [facility] Comment on above: Performed By: #### Khadar HORNE2 #### [facility] [address] [place] [address] Dr. Christian Lebron Chloride [Moles/Vol] 109 mmol/L Critically high 98-107 [facility] Comment on above: Performed By: #### Khadar HORNE2 #### [facility] [address] [place] [address] Dr. Christian Lebron CO2 [Moles/Vol] 23.1 mmol/L Normal 22.0-30.0 [facility] Comment on above: Performed By: #### M MA2 #### [facility] [address] [place] [address] Dr. Christian Lebron Creatinine [Mass/Vol] 1.49 mg/dL Critically high 0.52-1.04 [facility] Comment on above: Performed By: #### M MA2 #### [facility] [address] [place] [address] Dr. Christian Lebron EGFR-AF ICELANDIC 41 mL/min/1.73m2 Critically low >=60 [facility] Comment on above: Performed By: #### M MA2 #### [facility] [address] [place] [address] Dr. Christian Lebron EGFR-NON AF ICELANDIC 34 mL/min/1.73m2 Critically low >=60 [facility] Comment on above: Performed By: #### Khadar HORNE2 #### [facility] [address] [place] [address] Dr. Christian Lebron Glucose [Mass/Vol] 114 mg/dL Critically high 74-106 [facility] Comment on above: Performed By: #### Khadar HORNE2 #### [facility] [address] [place] [address] Dr. Christian Lebron Potassium [Moles/Vol] 3.7 mmol/L Normal 3.4-5.0 [facility] Comment on above: Performed By: #### Khadar HORNE2 #### [facility] [address] [place] [address] Dr. Christian Lebron Sodium [Moles/Vol] 144 mmol/L Normal 137-145 [facility] Comment on above: Performed By: #### Khadar HORNE2 #### [facility] [address] [place] [address] Dr. Christian Lebron Urea nitrogen [Mass/Vol] 28.0 mg/dL Critically high 7.0-17.0 [facility] Comment on above: Performed By: #### Khadar HORNE2 #### [facility] [address] [place] [address] Dr. Christian Lebron Urea nitrogen/Creatinine [Mass ratio] 18.8 mg/mg Normal [facility] Comment on above: Performed By: #### Khadar HORNE2 #### [facility] [address] [place] [address] Dr. Christian Lebron Rapid Covid-19 PCR (CVDRPD)o n 02-01-2021 SARS-CoV-2 (COVID-19) RNA ALLISON+probe Ql (Unsp spec) Not detected Normal NOT DETECTED [facility] Comment on above: Result Comment: This test is not yet approved or cleared by the [place] Food and Drug Administration (FDA). This test was developed by [employer], [place], [place]. The performance characteristics of this test were validated by [facility]. The results are not intended to be used as the sole means for clinical diagnosis or patient management decisions. [facility] is authorized under Clinical Laboratory Improvement Amendments (CLIA) to perform high- complexity testing. When diagnostic testing is negative, the possibility of a false negative should be considered in the context of a patient's recent exposures and the presence of clinical signs and symptoms consistent with SARS-CoV-2. Performed By: #### H OMCY #### [facility] [address] [address] [address] Christian Lebron TROPONIN, HIGH SENSITIVITYon 02-01-2021 HSTROP 15.4 pg/mL Normal 4.0-35.5 [facility] Comment on above: Result Comment: CUT- OFF POINTS HAVE BEEN ESTABLISHED BASED ON THE FOURTH UNIVERSAL DEFINITIONS OF MYOCARDIAL INFARCTION. THE UPPER REFERENCE LIMIT (URL) OF TROPONIN, DEFINED THE 99TH PERCENTILE OF cTnI DISTRIBUTION IN A REFERENCE POPULATION, HAS BEEN CONFIRMED THE DECISION THRESHOLD FOR [place] DIAGNOSIS. Performed By: #### H STROPN #### [facility] [address] [id number] Lauri Nascimento XR CHEST 2 Von 02-01-2021 [...] YAQUELIN ANSARI Date: 2021-01-31 22:40 Normal [facility] XR PELVIS 1_2 VIEWSon 2020 XR [...] YAQUELIN ANSARI Date: 2021-01-31 22:41 Normal [facility] BNPon 01-31-2021 Natriuretic peptide B (Bld) [Mass/Vol] 1162.0 pg/mL Normal <=1,800.0 [facility] Comment on above: Performed By: #### H OMCY #### [facility] [address] [place] [address] Dr. Christian Lebron CBC AUTO DIFFon 01-31-2021 BASO # 0.0 103/ul Normal 0.0-0.1 [facility] Comment on above: Performed By: #### E RUR #### [facility] [address] [place], [place] [id number] Lauri Pily Basophils/100 WBC (Bld) 0.4 % Normal 0.2-2.0 [facility] Comment on above: Performed By: #### E RUR #### [facility] [address] [place] [address] Lauri Pily EO # 0.1 103/ul Normal 0.0-0.7 [facility] Comment on above: Performed By: #### E RUR #### [facility] [address] [place] [address] Lauri Pily Eosinophils/100 WBC (Bld) 0.9 % Normal 0.9-7.0 [facility] Comment on above: Performed By: #### E RUR #### [facility] [address] [place] [address] Lauri Pily Erythrocyte distribution width (RBC) [Ratio] 13.8 % Normal 11.0-15.0 [facility] Comment on above: Performed By: #### E RUR #### [facility] [address] [place], [place] [id number] Lauri Pily Hematocrit (Bld) [Volume fraction] 42.8 % Normal 36.0-48.0 [facility] Comment on above: Performed By: #### E RUR #### [facility] [address] [place], [place] [id number] Lauri Pily Hemoglobin (Bld) [Mass/Vol] 13.8 g/dL Normal 12.0-16.0 [facility] Comment on above: Performed By: #### E RUR #### [facility] [address] [place] [address] Laurilaura Nascimento IG # 0.04 10e3/ul Critically high 0.00-0.03 [facility] Comment on above: Performed By: #### E RUR #### [facility] [address] [place] [address] Laurilaura Nascimento IG % 0.4 % Normal 0.0-0.5 [facility] Comment on above: Performed By: #### E RUR #### [facility] [address] [place] [address] Laurilaura Nascimento LYMPH # 2.3 103/ul Normal 1.2-3.8 [facility] Comment on above: Performed By: #### E RUR #### [facility] [address] [place] [address] Lauri Gavinen Lymphocytes/100 WBC (Bld) 21.7 % Normal 20.5-60.0 [facility] Comment on above: Performed By: #### E RUR #### [facility] [address] [place] [address] Lauri Nascimento MANUAL DIFF REQ NO Normal [facility] Comment on above: Performed By: #### E RUR #### [facility] [address] [place] [address] Lauri Nascimento MCH (RBC) [Entitic mass] 28.9 pg Normal 26.7-34.0 [facility] Comment on above: Performed By: #### E RUR #### [facility] [address] [place] [address] Lauri Nascimento MCHC (RBC) [Mass/Vol] 32.2 g/dL Normal 29.9-35.2 [facility] Comment on above: Performed By: #### E RUR #### [facility] [address] [place] [address] Lauri Pily MCV (RBC) [Entitic vol] 89.7 fL Normal 81.0-99.0 [facility] Comment on above: Performed By: #### E RUR #### [facility] [address] [place], [place] [id number] Lauri Nascimento MONO # 0.9 103/ul Critically high 0.3-0.8 [facility] Comment on above: Performed By: #### E RUR #### [facility] [address] [place], [place] [id number] Lauri Nascimento Monocytes/100 WBC (Bld) 8.0 % Normal 1.7-12.0 [facility] Comment on above: Performed By: #### E RUR #### [facility] [address] [place], [place] [id number] Lauri Nascimento NEUT # 7.4 103/ul Critically high 1.4-6.5 [facility] Comment on above: Performed By: #### E RUR #### [facility] [address] [place], [place] [id number] Lauri Nascimento Neutrophils/100 WBC (Bld) 68.6 % Normal 43.0-75.0 [facility] Comment on above: Performed By: #### E RUR #### [facility] [address] [place], [place] [id number] Lauri Nascimento Platelet mean volume (Bld) [Entitic vol] 11.8 fL Normal 9.5-13.5 [facility] Comment on above: Performed By: #### E RUR #### [facility] [address] [place], [place] [id number] Lauri Pily PLT 190 103/ul Normal 150-450 [facility] Comment on above: Performed By: #### E RUR #### [facility] [address] [place], [place] [address] Lauri Pily RBC 4.77 106/ul Normal 4.20-5.40 [facility] Comment on above: Performed By: #### E RUR #### [facility] [address] [place], [place] [id number] Lauri Pily WBC 10.8 103/ul Normal 4.0-11.0 [facility] Comment on above: Performed By: #### E RUR #### [facility] [address] [address] Lauri Gavinen PROF 14(COMP METB)on 021 Albumin [Mass/Vol] 3.6 g/dL Normal 3.5-5.0 [facility] Comment on above: Performed By: #### H OMCY #### [facility] [address] [place] [address] Dr. Christian Lebron Albumin/Globulin [Mass ratio] 1.0 {ratio} Normal [facility] Comment on above: Performed By: #### H OMCY #### [facility] [address] [place] [address] Dr. Christian Lebron ALP [Catalytic activity/Vol] 74 U/L Normal 38-126 [facility] Comment on above: Performed By: #### H OMCY #### [facility] [address] [place] [address] Dr. Christian Lebron ALT [Catalytic activity/Vol] 19 U/L Normal 9-52 [facility] Comment on above: Performed By: #### H OMCY #### [facility] [address] [place] [address] Dr. Christian Lebron Anion gap [Moles/Vol] 11.7 mmol/L Normal [facility] Comment on above: Performed By: #### H OMCY #### [facility] [address] [place] [address] Dr. Christian Lebron AST [Catalytic activity/Vol] 16 U/L Normal 14-36 [facility] Comment on above: Performed By: #### H OMCY #### [facility] [address] [place] [address] Dr. Christian Lebron Bilirubin [Mass/Vol] 0.4 mg/dL Normal 0.2-1.3 [facility] Comment on above: Performed By: #### H OMCY #### [facility] [address] [place] [address] Dr. Christian Lebron Calcium [Mass/Vol] 9.3 mg/dL Normal 8.4-10.2 [facility] Comment on above: Performed By: #### H OMCY #### [facility] [address] [address] [address] Christian Lebron Chloride [Moles/Vol] 107 mmol/L Normal 98-107 [facility] Comment on above: Performed By: #### H OMCY #### [facility] [address] [address] [address] Christian Lebron CO2 [Moles/Vol] 26.0 mmol/L Normal 22.0-30.0 [facility] Comment on above: Performed By: #### H OMCY #### [facility] [address] [address] [address] Christian Lebron Creatinine [Mass/Vol] 1.63 mg/dL Critically high 0.52-1.04 [facility] Comment on above: Performed By: #### H OMCY #### [facility] [address] [place] [address] Dr. Christian Lebron EGFR-AF ICELANDIC 37 mL/min/1.73m2 Critically low >=60 [facility] Comment on above: Performed By: #### H OMCY #### [facility] [address] [place] [address] Dr. Christian Lebron EGFR-NON AF ICELANDIC 30 mL/min/1.73m2 Critically low >=60 [facility] Comment on above: Performed By: #### H OMCY #### [facility] [address] [place] [address] Dr. Christian Lebron Globulin (S) [Mass/Vol] 3.7 g/dL Normal [facility] Comment on above: Performed By: #### H OMCY #### [facility] [address] [address] [address] Christian Lebron Glucose [Mass/Vol] 96 mg/dL Normal 74-106 [facility] Comment on above: Performed By: #### H OMCY #### [facility] [address] [place] [address] Dr. Christian Lebron Potassium [Moles/Vol] 3.7 mmol/L Normal 3.4-5.0 [facility] Comment on above: Performed By: #### H OMCY #### [facility] [address] [address] [address] Christian Lebron Protein [Mass/Vol] 7.3 g/dL Normal 6.1-8.2 [facility] Comment on above: Performed By: #### H OMCY #### [facility] [address] [address] [address] Christian Lebron Sodium [Moles/Vol] 141 mmol/L Normal 137-145 [facility] Comment on above: Performed By: #### H OMCY #### [facility] [address] [address] [address] Christian Lebron Urea nitrogen [Mass/Vol] 31.0 mg/dL Critically high 7.0-17.0 [facility] Comment on above: Performed By: #### H OMCY #### [facility] [address] [place] [address] Dr. Christian Lebron Urea nitrogen/Creatinine [Mass ratio] 19.0 mg/mg Normal [facility] Comment on above: Performed By: #### H OMCY #### [facility] [address] [address] [address] Christian Lebron PROTIMEon 01-31-2021 INR Coag (PPP) [Relative time] {INR} Normal [facility] Comment on above: Performed By: #### H OMCY #### [facility] [address] [place] [address] Dr. Christian Lebron INR GUIDELINES SEE BELOW Normal [facility] Comment on above: Result Comment: EVER RED INR: 2.0 - 3.0 CONDITIONS NOT LISTED BELOW 2.5 - 3.5 FOR PROSTHETIC HEART VALVE REPLACEMENT 2.5 - 3.5 RECURRENT THROMBOSIS Performed By: #### H OMCY #### [facility] [address] [place] [address] Dr. Christian Lebron PT Coag (PPP) [Time] 10.0 s Normal 9.0-11.6 [facility] Comment on above: Performed By: #### H OMCY #### [facility] [address] [place] [address] Dr. Christian Lebron PTTon 01-31-2021 aPTT Coag (Bld) [Time] 28.2 s Normal 22.3-36.2 Th e [facility] Comment on above: Performed By: #### H OMCY #### [facility] [address] [address] [address] Christian Lebron TROPONIN, HIGH SENSITIVITYon 01-31-2021 HSTROP 15.5 pg/mL Normal 4.0-35.5 [facility] Comment on above: Result Comment: CUT- OFF POINTS HAVE BEEN ESTABLISHED BASED ON THE FOURTH UNIVERSAL DEFINITIONS OF MYOCARDIAL INFARCTION. THE UPPER REFERENCE LIMIT (URL) OF TROPONIN, DEFINED THE 99TH PERCENTILE OF cTnI DISTRIBUTION IN A REFERENCE POPULATION, HAS BEEN CONFIRMED THE DECISION THRESHOLD FOR [place] DIAGNOSIS. Performed By: #### H OMCY #### [facility] [address] [place] [address] Dr. Christian Lebron TSHon 01-31-2021 TSH 3.025 uIU/mL Normal 0.470-4.68 0 [facility] Comment on above: Performed By: #### H OMCY #### [facility] [address] [address] [address] Christian Lebron TSH RANGE SEE BELOW Normal [facility] Comment on above: Result Comment: <0.3 4 UIU/ml HYPERTHYROID 0.34-5.60 UIU/ml EUTHYROID >5.60 UIU/ml HYPOTHYROID Performed By: #### H OMCY #### [facility] [address] [address] [address] Christian Lebron Vital Signs Date Time Vital Sign Value Performing Clinician Facility 03-17-2024 [id number] Body height 167.6 cm Abdulaziz Alvarez MD Work Phone: [facility] 03-17-2024 11:21-0400 Diastolic blood pressure 52 mm[Hg] Abdulaziz Alvarez MD Work Phone: [facility] 03-17-2024 11:21-0400 Heart rate 79 /min Abdulaziz Alvarez MD Work Phone: [facility] 03-17-2024 11:21-0400 Systolic blood pressure 130 mm[Hg] Abdulaziz Alvarez MD Work Phone: [facility] 11-14-2023 17:04-0500 Body height 162.6 cm Ismeal Aquino DPM Work Phone: [facility] 11-14-2023 17:04-0500 Body mass index (BMI) [Ratio] 29.52 kg/m2 Ismael Aquino DPM Work Phone: [facility] 11-14-2023 17:04-0500 Body weight 78.02 kg Ismael Aquino DPM Work Phone: [facility] 11-14-2023 17:04-0500 Diastolic blood pressure 80 mm[Hg] Ismael Aquino DPM Work Phone: [facility] 11-14-2023 17:04-0500 Heart rate 77 /min Ismael Aquino DPM Work Phone: [facility] 11-14-2023 17:04-0500 Systolic blood pressure 123 mm[Hg] Ismael Aquino DPM Work Phone: [facility] 09-26-2023 12:00-0500 Body height 167.64 cm Sergio Escudero Other [facility] Other 09-26-2023 12:00-0500 Body mass index (BMI) [Ratio] 25.01 kg/m2 Sergio Escudero Other [facility] Other 09-26-2023 12:00-0500 Body temperature 96.1 [degF] Sergio Escudero Other [facility] Other 09-26-2023 12:00-0500 Body weight 70.31 kg Sergio Escudero Other [facility] Other 09-26-2023 12:00-0500 Diastolic blood pressure 62 mm[Hg] Sergio Escudero Other [facility] Other 09-26-2023 12:00-0500 SaO2% (BldA) [Mass fraction] 99 % Sergio Kinglucita Other [facility] Other 09-26-2023 12:00-0500 Systolic blood pressure 120 mm[Hg] Sergio Kota Other [facility] Other 03-20-2023 11:30-0400 Body height 167.64 cm Raysa Gibbonsshanice Other [facility] Other 03-20-2023 11:30-0400 Body mass index (BMI) [Ratio] 25.01 kg/m2 Raysa Gibbonsshanice Other [facility] Other 03-20-2023 11:30-0400 Body temperature 97.8 [degF] Raysa Robins Other [facility] Other 03-20-2023 11:30-0400 Body weight 70.31 kg Raysa Robins Other [facility] Other 03-20-2023 11:30-0400 Diastolic blood pressure 86 mm[Hg] Raysa Julienne Other [facility] Other 03-20-2023 11:30-0400 SaO2% (BldA) [Mass fraction] 99 % Raysa Gibbonsshanice Other [facility] Other 03-20-2023 11:30-0400 Systolic blood pressure 122 mm[Hg] Raysa Julienne Other [facility] Other 09-21-2022 12:15-0500 Body height 167.64 cm Abdulaziz Alvarez MD Work Phone: formerly [facility] 250 DO Work Phone: 09-21-2022 12:15-0500 Body mass index (BMI) [Ratio] 24.05 kg/m2 Abdulaziz Alvarez MD Work Phone: formerly [facility] 250 DO Work Phone: 09-21-2022 12:15-0500 Body surface area Derived from formula 1.76 m2 Abdulaziz Alvarez MD Work Phone: formerly [facility] 250 DO Work Phone: 09-21-2022 12:15-0500 Body weight 67.59 kg Abdulaziz Alvarez MD Work Phone: formerly [facility] 250 DO Work Phone: 09-21-2022 12:15-0500 Diastolic blood pressure 78 mm[Hg] Abdulaziz Alvarez MD Work Phone: formerly [facility] 250 DO Work Phone: 09-21-2022 12:15-0500 Heart rate 84 /min Abdulaziz Alvarez MD Work Phone: formerly [facility] 250 DO Work Phone: 09-21-2022 12:15-0500 Systolic blood pressure 126 mm[Hg] Abdulaziz Alvarez MD Work Phone: formerly [facility] 250 DO Work Phone: 09-12-2022 11:45-0500 Body height 167.64 cm Sergio Escudero Other [facility] Other 09-12-2022 11:45-0500 Body mass index (BMI) [Ratio] 27.44 kg/m2 Sergio Escudero Other [facility] Other 09-12-2022 11:45-0500 Body temperature 97.8 [degF] Sergio Kinglucita Other [facility] Other 09-12-2022 11:45-0500 Body weight 77.11 kg Sergio Kinglucita Other [facility] Other 09-12-2022 11:45-0500 Diastolic blood pressure 68 mm[Hg] Sergoi Kinglucita Other [facility] Other 09-12-2022 11:45-0500 SaO2% (BldA) [Mass fraction] 98 % Sergio Kinglucita Other [facility] Other 09-12-2022 11:45-0500 Systolic blood pressure 116 mm[Hg] Sergio Kinglucita Other [facility] Other 08-14-2022 12:47-0500 Diastolic blood pressure 71 mm[Hg] DO Edward Bernstein Work Phone: [facility] 08-14-2022 12:47-0500 Systolic blood pressure 177 mm[Hg] DO Edward Bernstein Work Phone: [facility] 08-14-2022 12:00-0500 Body temperature 98.3 [degF] DO Edward Bernstein Work Phone: [facility] 08-14-2022 12:00-0500 Heart rate 79 /min DO Edward Bernstein Work Phone: [facility] 08-14-2022 12:00-0500 Respiratory rate 16 /min DO Edward Bernstein Work Phone: [facility] 08-14-2022 12:00-0500 SaO2% (BldA) [Mass fraction] 98 % DO Edward Bernstein Work Phone: [facility] 08-14-2022 04:50-0500 Body weight 66.6 kg DO Edward Bernstein Work Phone: [facility] 08-13-2022 20:45-0500 Body temperature 97.8 [degF] DO Edward Bernstein Work Phone: [facility] 08-13-2022 20:45-0500 Diastolic blood pressure 68 mm[Hg] DO Edward Bernstein Work Phone: [facility] 08-13-2022 20:45-0500 Heart rate 80 /min DO Edward Bernstein Work Phone: [facility] 08-13-2022 20:45-0500 Respiratory rate 20 /min DO Edward Bernstein Work Phone: [facility] 08-13-2022 20:45-0500 SaO2% (BldA) [Mass fraction] 99 % DO Edward Bernstein Work Phone: [facility] 08-13-2022 20:45-0500 Systolic blood pressure 188 mm[Hg] DO Edward Bernstein Work Phone: [facility] 08-13-2022 11:50-0500 Body height 167.64 cm DO Edward Bernstein Work Phone: [facility] 08-13-2022 06:00-0500 Body weight 68.8 kg DO Edward Bernstein Work Phone: [facility] Encounters Encounter Date Encounter Type Care Provider Facility Start: 04-01-2024 End: 04-01-2024 ambulatory KALI MAHARAJ Not Available Start: 03-23-2024 End: 03-23-2024 ambulatory SOFIA CONROY Not Available Start: 03-17-2024 End: 03-17-2024 ambulatory [facility] Start: 03-17-2024 End: 03-17-2024 Encounter for other preprocedural examination [facility] Start: 03-17-2024 End: 03-17-2024 Office outpatient visit 25 minutes Abdulaziz Alvarez MD Work Phone: [facility] Comment on above: Pre-op evaluation (P rimary Dx); Primary hypertension; Hyperlipidemia, unspecified hyperlipidemia type; Stenosis of carotid artery, unspecified laterality; Former smoker; [facility] resident; History of syncope Start: 03-17-2024 End: 03-17-2024 Preprocedural examination done Abdulaziz Alvarez MD Work Phone: [facility] Work Phone: Start: 03-13-2024 End: 03-13-2024 ambulatory PILY YAÑEZ Not Available Start: 01-29-2024 End: 01-29-2024 ambulatory KALI MAHARAJ Not Available Start: 01-21-2024 End: 01-21-2024 ambulatory YULIA D BEJ Not Available Start: 11-14-2023 End: 11-14-2023 ambulatory ISMAEL AQUINO Not Available Start: 11-14-2023 End: 11-14-2023 Patient encounter procedure Ismael Aquino DPM Work Phone: [facility] Comment on above: PVD (peripheral vasc ular disease) (CMS/[facility]) (Primary Dx); Onychomycosis; Toe pain, left; [...] encounter procedure II Kali Maharaj Work Phone: [facility] Start: 09-26-2023 End: 09-26-2023 ambulatory II Kali Maharaj Work Phone: [facility] Other Start: 03-20-2023 End: 03-20-2023 Patient encounter procedure Raysa Robins [facility] Surgery Start: 03-20-2023 End: 03-20-2023 ambulatory II Kali Maharaj Work Phone: [facility] Other Start: 03-13-2023 ambulatory Abdulaziz Alvarez Facility : Start: 11-10-2022 Chart Update Abdulaziz Alvarez MD Work Phone: formerly [facility] 250 DO Work Phone: Start: 10-30-2022 Telephone encounter Abdulaziz day MD Work Phone: formerly [facility] 600 DO Work Phone: Start: 10-22-2022 Patient encounter procedure Abdulaziz Alvarez MD Work Phone: formerly [facility] 250 DO Work Phone: Start: 09-21-2022 ambulatory Abdulaziz Alvarez Facility : Start: 09-21-2022 Office outpatient vi sit 25 minutes Abdulaziz Alvarez MD Work Phone: formerly [facility] 250 DO Work Phone: Start: 09-18-2022 Chart Update Abdulaziz Alvarez MD Work Phone: formerly [facility] 250 DO Work Phone: Start: 09-14-[address] Kali Maharaj II Facility:[id number] Start: 09-12-2022 End: 09-12-2022 ambulatory Sergio Escudero Other [facility] Other Start: 09-12-2022 Office outpatient vi sit 15 minutes Sergio Escudero [facility] Start: 08-14-2022 ambulatory Cintron Alvarez Facility :[id number] Start: 08-14-2022 Patient encounter procedure DO Edward Bernstein Work Phone: [facility] Start: 08-13-2022 End: 08-13-2022 ambulatory DO Edward Bernstein Work Phone: [facility] Work Phone: Start: 08-13-2022 End: 08-13-2022 Patient encounter procedure DO Edward Bernstein Work Phone: [facility] Start: 08-12-2022 ambulatory Cintron Alvarez Facility :[id number] Start: 08-11-2022 ambulatory Cintron Alvarez Facility :[id number] Start: 08-10-2022 ambulatory Cintron Alvarez Facility :[id number] Start: 08-10-2022 End: 08-14-2022 Evaluation and management of inpatient DO Edward Bernstein Work Phone: [facility] Start: 12-26-2021 End: 12-26-2021 ambulatory Jhonatan Oakes Other [facility] Other Start: 12-26-2021 Telephone encounter Jhonatan Oakes [facility] Vascular Surgery Start: 2021 End: 08-24-2021 ambulatory YULIA MCCRAY Facility:H1 Start: 07-10-2021 End: 07-11-[address] KALI MAHARAJ Facility:[facility]1 Start: 07-03-[address] KALI MAHARAJ Facilit y:H1 Start: 02-08-2021 End: 03-08-[address] KALI MAHARAJ Facility:H1 Start: 02-01-2021 End: 02-02-2021 ambulatory LULU FRIEDMAN Facility:[facility]1 Start: 01-31-2021 End: 02-01-2021 ambulatory UN[facility] PROVIDER [facility] Start: 12-05-[address] MAX Whyte ility:H1 Start: 09-04-2018 End: 09-05-2018 Patient encounter procedure DEFAULT PHYSICIAN Facility:[facility] Procedures Date Procedure Procedure Detail [...] procedure 03/17/2025 11:00 AM EDT Office Visit [address] [place] [address] Abdulaziz Alvarez MD [address] [facility] [address], [address] [place] [address] [facility] Start: 02-17-2024 End: 02-17-2024 Patient encounter procedure 02/17/2024 1:15 PM EDT Office Visit [facility] [address] [address] [place] [id number] Kali Maharaj MD [address] [facility] [address] [place] [address] [facility] Start: 01-23-2024 End: 01-23-2024 Patient encounter procedure 01/23/2024 4:10 PM EDT Procedure Visit [facility] [address] [facility] [address] [place] [address] Ismael Aquino DPM [address] [address] [facility] Start: 12-10-2023 End: 12-10-2023 Patient encounter procedure 12/10/2023 2:00 PM EST Office Visit [facility] [address] [facility] [address] [place] [phone] Yulia Mccray MD [address] [facility] [address] [place], [place] [id number] [facility] Start: 11-21-2023 Medicare Annual Wellness (AWV) Medicare Annual Wellness (AWV) [facility] Start: 11-14-2023 End: 11-14-2023 Patient encounter procedure 11/14/2023 4:50 PM EST Procedure Visit [facility] [address] [facility] [address] [place] [address] Ismael Aquino DPM [address] [address] [facility] Start: 11-11-2023 End: 11-11-2023 Patient encounter procedure 11/11/2023 1:50 PM EST Procedure Visit [facility] [address] [place] [phone] Ismael Aquino DPM [address] [address] [facility] Start: 08-10-2023 Echocardiography Echocardiogram [facility] Start: 06-07-2023 COVID-19 Vaccine () COVID-19 Vaccine () [facility] Start: 03-20-2023 Doppler ultrasonography of bilateral carotid arteries US carotid doppler BI [facility] Start: 03-20-2023 US.doppler Carotid arteries - bilateral [facility] Start: 03-13-2023 FUV, Provider: Abdulaziz Alvarez, Status: Pen, Time: 11:50 AM FUV, Provider: Abdulaziz Alvarez, Status: Pen, Time: 11:50 AM formerly [facility] 250 DO Work Phone: Start: 09-21-2022 FUV, Provider: Abdulaziz Alvarez, Status: Pen, Time: 11:50 AM FUV, Provider: Abdulaziz Alvarez, Status: Pen, Time: 11:50 AM formerly [facility] 250 DO Work Phone: Start: 08-14-2022 [facility] Start: 08-13-2022 [facility] Start: 08-12-2022 Referral to vascular surgeon [facility] Start: 08-10-2022 Hospital admission [facility] Start: 08-10-2022 [facility] Start: 08-30-2020 Zoster Vaccines (2 of 2) Zoster Vaccines (2 of 2) [facility] Start: 2000 RSV patients and/or patients aged 60+ years (1 - 1-dose 60+ series) RSV patients and/or patients aged 60+ years (1 - 1-dose 60+ series) [facility] Start: 1962 DTaP/Tdap/Td Vaccines (1 - Tdap) DTaP/Tdap/Td Vaccines (1 - Tdap) [facility] Start: 1940 Creatinine measurement Creatinine Level [facility] Start: 1940 Lipid panel Lipid Panel [facility] Start: 1940 Medicare Annual Wellness Visit Medicare Annual Wellness Visit (AWV) [facility] Start: 1940 Potassium measurement Potassium Level [facility] Start: 1940 Thyroid stimulating hormone measurement TSH Level [facility] Patient Education Carotid Artery Disease Carotid Artery Disease (DC) [facility] Work Phone: Patient referral [facility] Work Phone: Immunizations Immunization Date Immunization Notes Care Provider [facility] 08-12-2023 Influenza, High-dose Seasonal, Quadrivalent, Preservative Free Ismael qAuino DPM Work Phone: [facility] 09-21-2022 Moderna SARS-CoV-2 Booster Vaccination Ismael Aquino DPM Work Phone: [facility] 07-27-2022 Fluzone High-Dose Quadrivalent 0.7 ML Intramuscular Suspension Prefilled Syringe Abdulaziz Alvarez MD Work Phone: [facility] 05-08-2022 Moderna COVID-19 Vac [...] vaccine recombinant Abdulaziz Alvarez MD Work Phone: [facility] 07-01-2020 influenza, high dose seasonal, preservative-free Abdulaziz Alvarez MD Work Phone: [facility] 250 DO Work Phone: 07-01-2020 Influenza, High-dose Seasonal, Quadrivalent, Preservative Free Ismael Aquino DPM Work Phone: [facility] 06-22-2019 Seasonal trivalent influenza vaccine, adjuvanted, preservative free Abdulaziz Alvarez MD Work Phone: [facility] 07-21-2018 influenza, high dose seasonal, preservative-free Abdulaziz Alvarez MD Work Phone: [facility] 250 DO Work Phone: 06-06-2018 influenza, high dose seasonal, preservative-free Abdulaziz Alvarez MD Work Phone: [facility] 06-18-2017 influenza, high dose seasonal, preservative-free Abdulaziz Alvarez MD Work Phone: [facility] 06-18-2017 pneumococcal polysaccharide vaccine, 23 valent Abdulaziz Alvarez MD Work Phone: [facility] 07-13-2016 influenza, high dose seasonal, preservative-free Abdulaziz Alvarez MD Work Phone: [facility] 07-23-2015 pneumococcal conjuga te vaccine, 13 valent Abdulaziz Alvarez MD Work Phone: [facility] 07-07-2015 influenza, injectabl e, quadrivalent, preservative free Ismael Aquino DPM Work Phone: [facility] 07-03-2013 influenza, seasonal, injectable, preservative free Ismael Aquino DPM Work Phone: [facility] 10-07-2010 pneumococcal polysaccharide vaccine, 23 valent Ismael Aquino DPM Work Phone: [facility] 07-20-2010 seasonal influenza, intradermal, preservative free Ismael Aquino DPM Work Phone: [facility] Payers Date Payer Category Payer Medicaid MEDICAID MEDICAI D [id number] 2023-Present [address] [place] [address] [id number] 2023 Medicaid [id number] 2017 Medicare [id number]. [id number] 1959 Private Health Insurance [id number] 1959 Self-pay 1940 Unknown [id number] 2.16.840.1.169847.3.579.2. 647 1940 Unknown [id number] 2.16.840.1.541454.3.579.2. 732 1940 Unknown [id number] 2.16.840.1.353296.3.579.2. 593 1940 Unknown [id number] 2.16.840.1.201057.3.579.2. 593 1940 Unknown [id number] 2.16.840.1.553185.3.579.2. 593 1940 Unknown [id number] 2.16.840.1.746856.3.579.2. 593 1940 Unknown [id number] 2.16.840.1.024667.3.579.2. 593 1940 Unknown [id number] 2.16.840.1.328274.3.579.2. 593 1940 Unknown [id number] 2.16.840.1.721984.3.579.2. 593 1940 Unknown [id number] 2.16.840.1.229641.3.579.2. 356 1940 Unknown [id number] 2.16.840.1.035864.3.579.2. 356 1940 Unknown [id number] 2.16.840.1.228573.3.579.2. 356 1940 Unknown [id number] 2.16.840.1.505606.3.579.2. 356 1940 Unknown [id number] 2.16.840.1.462216.3.579.2. 356 194 Unknown [id number] 2.16.840.1.739453.3.579.2. 356 1940 Unknown [id number] 2.16.840.1.128186.3.579.2. 356 1940 Unknown [id number] 2.16.840.1.251411.3.579.2. 356 1940 Unknown [id number] 2.16.840.1.398681.3.579.2. 1244 1940 Unknown [id number] 2.16.840.1.866684.3.579.2. 1259 1940 Unknown [id number] 2.16.840.1.812127.3.579.2. 1259 1940 Unknown [id number] 2.16.840.1.143194.3.579.2. 1259 1940 Unknown [id number] 2.16.840.1.649591.3.579.2. 1259 1940 Unknown [id number] 2.16.840.1.934568.3.579.2. 1259 1940 Unknown [id number] 2.16.840.1.189925.3.579.2. 1259 0 Unknown [id number] 2.16.840.1.958896.3.579.2. 1259 1940 Unknown [id number] 2.16.840.1.510435.3.579.2. 1259 Medicare Medicare [id number] Unknown Unknown Insurance No Card [id number] Unknown [id number] 2.16.840.1.661009.3.579.2. 531 Social History Date Type Detail Facility Start: 10-16-2023 End: 03-17-2024 Sex Assigned At [facility] Other Start: 08-13-2022 End: 08-13-2022 Tobacco smoking status NMIS Smoker (finding) [facility] Start: 1940 Sex Assigned At Female F [facility] Start: 10-16-2023 End: 03-17-2024 Consumes alcohol occasionally Consumes alcohol occasionally formerly [facility] 250 DO Work Phone: Comment on above: coffee 1 cup daily; 1 pack per week; Start: 10-07-1987 Tobacco smoking stat [facility] Smokes tobacco daily [facility] Start: 10-07-1987 History of tobacco use Cigarette Smo ker [facility] History of tobacco use Passive smoker [facility] Start: 04-08-2023 End: 03-17-2024 Tobacco use and exposure Smokeless tobacco non-user [facility] Start: 10-16-2023 End: 11-14-2023 Alcohol intake Lifetime non-drinker (finding) [facility] Start: 1940 Sex Assigned At Not on file [facility] Start: 11-14-2023 Alcohol Comment caffeine intak e: 1-2 cups per day [facility] Start: 03-17-2024 [facility] Work Phone: Start: 03-17-2024 Alcoholic beverage intake Current drinker of alcohol (finding) [facility] Work Phone: Start: 03-17-2024 Alcohol Comment every so often [facility] Work Phone: Start: 03-07-2024 End: 03-17-2024 Exposure to SARS-CoV-2 (event) Not sure [facility] Goals Date Patient Goal Desired Activity /State Functional Status Date Assessment Result Facility 08-14-2022 Functional status Patient at [facility] Work Phone: 08-10-2022 Functional status Patient at [facility] Work Phone: Mental Status Date Assessment Result Facility 08-14-2022 Cognitive function Cognitive Sta tus Patient at [facility] Work Phone: 08-10-2022 Cognitive function Cognitive Sta tus Patient at Baseline [facility] Work Phone: Clinical Notes 08-10-2022 to [...] artery, unspecified laterality 5. Former smoker 6. [facility] resident Scribe Attestation By signing my name [...] discussion and plan. documented in this encounter [facility] Work Phone: 03-17-2024 Instructions Cait Morrow LPN [...] year Same medications documented in this encounter [facility] Work Phone: 11-14-2023 History of Presen t [...] Ismael Aquino DPM documented in this encounter [facility] 09-26-2023 Evaluation note Encounter Date Diagnosis Assessment Notes Sep, Asymptomatic stenosis of right carotid artery (ICD-10 - I65.21) I recommend seeing this patient back in 1 year. I admonished her for smoking and offered her free resources to quit by the [facility]. She refused. There is no indication for any surgical intervention at this time. [facility] Other 06-14-2023 Evaluation note* Encounter Date Diagnosis [...] issues prior to her next scheduled appointment. [facility] Other 12-07-2022 Evaluation note* Encounter Date Diagnosis [...] for results in the next few weeks. [facility] Other 11-08-2022 Discharge summary Author Dee Kenney [facility] August 14, 2022 1:38pm Note Date/Time August 14, 2022 1 :13pm [facility] [address] [place] [address] Discharge Summary Signed Patient: Carley Quintanilla MR#: [id number] : 1940 Acct:[id number] Age/Sex: 81 / F Adm Date: 2 Loc: Room: [address] [place] [address]: Dee Kenney MD Copies to: [...] Regular Additional Instructions: You should have a [employer] prior to discharge. Instructions: Carotid Artery Disease, [...] <Electronically signed by Dee Kenney MD> 08/14/22 1823 [facility] Work Phone: 1(397) 507-771711-08-2022 Progress note Author Sergio Escudero [facility] August 14, 2022 11:52am Note Date/Time August 14, 2022 1 0:02am [facility] [address] [place] [address] Vascular Surgery Progress Note Signed with Addosmar Patient: Carley Quintanilla MR#: [id number] : 1940 Acct:[id number] Age/Sex: 81 / F Adm Date: 2 Loc: Room: [address] [place] [address] Type: ADM IN Attending Dr: Dee Kenney [...] signed by Sergio Escudero MD> 08/14/22 1002 [facility] Work Phone: 1(472) 257-356611-07-2022 Progress note Author Dee Kenney [facility] August 13, 2022 12:59pm Note Date/Time August 13, 2022 1 2:44pm [facility] [address] [place] [address] Hospitalist Progress Note Signed Patient: Carley Quintanilla MR#: [id number] : 1940 Acct:[id number] Age/Sex: 81 / F Adm Date: 2 Loc: Room: [address] [place] [address] Type: ADM IN Attending Dr: Dee Kenney [...] Patch.Td24 TRANSDERML 08/11/23 08:59 Not Given DAILY [facility] Omeprazole 20 mg 08/11/22 09:00 08/13/22 11:45 [...] <Electronically signed by Dee Kenney MD> 08/13/22 1252 [facility] Work Phone: 1(580) 725-362811-07-2022 Progress note Author Abdulaziz Alvarez [facility] August 13, 2022 11:03am Note Date/Time August 13, 2022 1 1:03am [facility] [address] [place] [address] Cardiology Progress Note Signed Patient: Carley Quintanilla MR#: [id number] : 1940 Acct:[id number] Age/Sex: 81 / F Adm Date: 2 Loc: Room: [address] [place] [address] Type: ADM IN Attending Dr: Dee Kenney [...] cessation education Documented By: Abdulaziz Alvarez MD, [facility] 2 1100 Signed By: <Electronically signed by [facility] Abdulaziz Alvarez> 08/13/22 1103 [facility] Work Phone: 1(751) 784-898511-07-2022 Consult note Author Sergio Escudero [facility] August 13, 2022 9:29am Note Date/Time August 13, 2022 8 :53am [facility] [address] [place] [address] Vascular Surgery Consult Note Signed Patient: Carley Quintanilla MR#: [id number] : 1940 Acct:[id number] Age/Sex: 81 / F Adm Date: 2 Loc: Room: [address] [place] [address] Type: ADM IN Attending Dr: Dee Kenney [...] negative unless noted below or in HPI [facility] Vaccinated for [facility]-19?: Yes Medical History HTN [...] signed by Sergio Escudero MD> 08/13/22 0929 [facility] Work Phone: 1(305) 128-939511-06-2022 Progress note Author Dee Kenney [facility] August 12, 2022 4:23pm Note Date/Time August 12, 2022 4 :18pm [facility] [address] [place] [address] Hospitalist Progress Note Signed Patient: Carley Quinatnilla MR#: [id number] : 1940 Acct:[id number] Age/Sex: 81 / F Adm Date: 2 Loc: 4N Room: [address] [place] [address] Type: ADM IN Attending Dr: Dee Kenney [...] 1,000 Ml IV 08/10/23 20:29 75 mls/hr .[id number] CARRI Administration Levothyroxine Sodium 75 mcg 08/11/22 [...] signed by Dee Kenney MD> 08/12/22 1623 [facility] Work Phone: 1(282) 972-391611-06-2022 Progress note Author Abdulaziz Alvarez [facility] August 12, 2022 10:01am Note Date/Time August 12, 2022 1 0:01am [facility] [address] [place] [address] Cardiology Progress Note Signed Patient: Carley Quintanilla MR#: [id number] : 1940 Acct:[id number] Age/Sex: 81 / F Adm Date: 2 Loc: Room: [address] [place] [address] Type: ADM IN Attending Dr: Dee Kenney [...] cessation education Documented By: Abdulaziz Alvarez MD, [facility] 2 0958 Signed By: <Electronically signed by [facility] Abdulaziz Alvarez> 08/12/22 1001 [facility] Work Phone: 1(487) 466-123411-05-2022 Progress note Author Dee Kenney [facility] August 11, 2022 2:19pm Note Date/Time August 11, 2022 2 :15pm [facility] [address] [place] [address] Hospitalist Progress Note Signed Patient: Carley Quintanilla MR#: [id number] : 1940 Acct:[id number] Age/Sex: 81 / F Adm Date: 2 Loc: Room: [address] [place] [address] Type: ADM IN Attending Dr: Dee Kenney [...] 1,000 Ml IV 08/10/23 20:29 75 mls/hr .[id number] CARRI Administration Levothyroxine Sodium 75 mcg 08/11/22 [...] signed by Dee Kenney MD> 08/11/22 1419 [facility] Work Phone: 1(766) 879-896811-05-2022 Consult note Author Abdulaziz Alvarez [facility] August 11, 2022 1:13pm Note Date/Time August 11, 2022 1 :09pm [facility] [address] [place] [address] Cardiology Consult Note Signed Patient: Carley Quintanilla MR#: [id number] : 1940 Acct:[id number] Age/Sex: 81 / F Adm Date: 2 Loc: Room: [address] [place] [address] Type: ADM IN Attending Dr: Dee Kenney MD Copies to: MD Abdulaziz Ortiz II, MD, [facility] Dee Kenney MD~ Cardiology HPI History of [...] of hypertensionmanaged with Dr. Kali Maharaj in [facility]. She has been on diltiazem 360 mg daily. The patient has been stable since admission heart rate in the 50s. Diltiazem has been withheld Review of Systems Review of Systems Review of systems: 11 point review of system otherwise was normal. [facility] Vaccinated for COVID-19?: Yes Medical [...] Lymph # (Auto) 0.9 L (1.00-4.8) x10E3/uL [place] # (Auto) 0.6 (0.0-0.8) x10E3/uL Eos # [...] 1000 ,000 ml @ 75 mls/hr IV .[id number] [facility] Rx#:[id number] Oral 480 / 480 960 / 960 [...] Tobacco use Documented By: Abdulaziz Alvarez MD, [facility] 2 1304 Signed By: <Electronically signed by [facility] Abdulaziz Alvarez> 08/11/22 1313 [facility] Work Phone: 1(660) 417-544911-04-2022 History and physical note Author Dee Kenney [facility] August 10, 2022 8:17pm Note Date/Time August 10, 2022 8 :03pm [facility] [address] [place] [address] Hospitalist H&P Signed Patient: Carley Quintanilla MR#: [id number] : 1940 Acct:[id number] Age/Sex: 81 / F Adm Date: 2 Loc: Room: [address] [place] [address] Type: ADM IN Attending Dr: Dee Kenney [...] than mentioned in history of presenting illness [facility] Medical History (Updated 08/10/22 @ 20:14 [...] % (Auto) 9.5 % (.) 08/10/22 17:15 [place] % (Auto) 5.7 % (.) 08/10/22 17:15 Eos % (Auto) 0.7 % (.) 08/10/22 17:15 Baso % (Auto) 0.5 % (.) 08/10/22 17:15 Neut # (Auto) 8.3 x10E3/uL (1.8-7.7) H 08/10/22 17:15 Lymph # (Auto) 0.9 x10E3/uL (1.00-4.8) L 08/10/22 17:15 [place] # (Auto) 0.6 x10E3/uL (0.0-0.8) 08/10/22 17:15 [...] pH 5.5 (5.0-9.0) 08/10/22 19:20 Ur Specific [place] 1.014 (1.001-1.030) 08/10/22 19:20 Urine Protein Negative [...] signed by Dee Kenney MD> 08/10/22 2017 [facility] Work Phone: Evaluation noteNo InformationNort [facility] Other Evaluation note* Diagnosis Onset Date Resolution Status KRISTAN (acute kidney injury) ac sun'aq Bilateral carotid artery disease acute HTN (hypertension) acute Syncope acute Tobacco abuse acute [facility] Work Phone: Evaluation noteNo assessment information available [facility] Work Phone: evaluation note* Diagnosis PVD (peripheral vascular disease) ([facility])- Primary Unspecified peripheral vascular disease Onychomycosis [...] history of tobacco use, presenting hazards to [facility] resident History of syncope documented in this encounter [facility] Work Phone: Hiscddr general Narrative - Reported* Type Description Date Medical History CAROTID STENOSIS BILATERAL Medical History hypertension Medical History hypercholesterolemia Medical History acid reflux Surgical History Foot Surgery Hospitalization History hypertension from [facility] Other History general Narrative - Reported* Type Description Date Medical History CAROTID STENOSIS BILATERAL Medical History hypertension Medical History hypercholesterolemia Medical History acid reflux Surgical History Foot Surgery Surgical History tonsillectomy Surgical History cataract Hospitalization History hypertension from [facility] Other Progress note Author Abdulaziz Alvarez [facility] August 14, 2022 5:26pm Note Date/Time August 14, 2022 5 :26pm [facility] [address] [place] [address] Cardiology Progress Note Signed Patient: Carley Quintanilla MR#: [id number] : 1940 Acct:[id number] Age/Sex: 81 / F Adm Date: 2 Loc: 4N Room: 8S1952-9 Type: DIS IN Attending Dr: Dee Kenney [...] cessation education Documented By: Abdulaziz Alvarez MD, [facility] 2 1725 Signed By: <Electronically signed by MD XENA Alvarez> 08/14/22 1726 [facility] Work Phone: Summary Purpose Family History [...] Procedures ECG 12 Lead Abdulaziz Alvarez MD [address] [place] [address], [address] [address] Referral ID Status Reason Start Date Expiration Date V isits Requested Visits Authorized [id number] Authorized 03/17/2024 03/17/2025 1 1 Specialty Diagnoses / Procedures Referred By Michael armstrong Referred To Contact Cardiology Diagnoses Primary hypertension Procedures Follow Up In Cardiology Abdulaziz Alvarez MD [address] [place], [place] [address]er [facility] 2, [address] [address] Abdulaziz Alvarez MD [address] [place] [address] 2, [address] [address] Referral ID Status Reason Start Date Expiration Date V isits Requested Visits Authorized [id number] Authorized 03/17/2024 03/17/2025 1 1 Additional Source Comments INFORMATION SOURCE (unrecogn ized section and content) DATE CREATED AUTHOR 09/15/2018 [facility] DATE CREATED AUTHOR AUTHOR'S ORGANIZ ATION 02/02/2021 [facility] DATE CREATED AUTHOR AUTHOR'S ORGANIZ ATION 08/30/2021 [facility] DATE CREATED AUTHOR AUTHOR'S ORGANIZ ATION 09/22/2021 [facility] Special[facility] DATE CREATED AUTHOR AUTHOR'S ORGANIZ ATION 09/28/2022 [facility] DATE CREATED AUTHOR AUTHOR'S ORGANIZ ATION 03/18/2023 [facility] DATE CREATED AUTHOR AUTHOR'S ORGANIZ ATION 03/18/2024 [facility] DATE CREATED AUTHOR AUTHOR'S ORGANIZ ATION 04/01/2024 [facility] DATE CREATED AUTHOR AUTHOR'S ORGANIZ ATION 04/02/2024 [facility] dical Specialists EPIC REASON FOR VISIT (unrecogniz ed section and content) Reason Comments Toenail Care Reason Comments Follow-up Dr. Evelyn CAPPS last s een 09/2022 Specialty Diagnoses / Procedures Referred By Contac t Referred To Contact Diagnoses Pre-op evaluation Procedures ECG 12 Lead Abdulaziz Alvarez MD [address] [facility] 2, [place] [address] Referral ID Status Reason Start Date Expiration Date V isits Requested Visits Authorized [id number] Authorized 03/17/2024 03/17/2025 1 1 Care Teams [...] Admit Provider, Attending Provider Active Megan Jenkins TECHNICAL SUPPORT ENGINEER Other Provider Active Kalina Nelson LPN Other Provider Active Jhonatan Oakes MD Other Provider Active Raysa Robins NP-C Other Provider Active Shelby Unger MD Other Provider Active Sergio Escudero MD Other Provider Active Team Status: Inactive Member Role Status Dates Kali Maharaj II MD Primary Care Provider Active Raysa Robins NP-C Attending Provider Active Transmission Engineer Relationship Specialty Start Date End Date Kali Maharaj MD [address] [place] [address] PCP - [employer] 12/05/22 Kali Maharaj MD [address] [place] [address] PCP - General Internal Medicine 04/10/23 Sarah Lozada LSW [employer] Sales[employer] Family Medicine 10/30/23 Transmission Engineer Relationship Specialty Start Date End Date Kali Maharaj MD [address] [place] [address] PCP - [employer] 12/05/22 Kali Maharaj MD [address] [place] [address] PCP - General Internal Medicine 04/10/23 Sarah Lozada LSW [employer] Salesperson Family Medicine 10/30/23 Transmission Engineer Relationship Specialty Start Date End Date Kali Maharaj MD [address] [place] [address] PCP - [employer] 12/05/22 Kali Maharaj MD [address] [place] [address] PCP - General Internal Medicine 04/10/23 Sarah LozadaTANYA [employer] Salesperson Family Medicine 10/30/23 Transmission Engineer Relationship Specialty Start Date End Date Kali Maharaj MD [address] [facility] [address] [place] [address] PCP - General Internal Medicine 03/17/24 Goals [...] BE BASED ON THE PRIMARY CLINICAL RECORDS. [employer] provides no warranty or guarantee of the accuracy or completeness of information in this document.
--- NOTE | 2024-04-13 09:09 | XR_ITS ---
The [address] [address] Patient Name: CARLEY QUINTANILLA MRN: [id number] date: 1940 Sex: F Assigned Patient Location: [facility] Current Patient Location: [facility] Accession/Order Number: [id number] Exam Date: 04/13/2024 09:20 Report Date: 04/13/2024 09:48 At the request of: JUAN NEUMANN Procedure: XR DEXA axial skeleton EXAMINATION: XR DEXA axial skeleton, 04/13/2024 9:20 AM EDT HISTORY: Decreased Estrogen Level E28.39 COMPARISON: 2020, 2018, 2015 TECHNIQUE: Dual-energy X-ray absorptiometry (DEXA) bone density study performed for the axial skeleton. FINDINGS: Bone mineral density AP spine L1-L4 measures 1.019 g/sq cm. T score -1.3. Osteopenia. Lowest bone mineral density left femoral neck measures 0.645 g/sq cm. T score -2.8. Osteoporosis XR/XR DEXA axial skeleton IMPRESSION: Osteoporosis. High fracture risk Pharmacologic treatment recommendations * No uniform recommendation applies to all patients. Management plans must be individualized. * Consider initiating pharmacologic treatment in postmenopausal women and men >= 50 years of age who have the following: Primary fracture prevention: * T-score <= - 2.5 at the femoral neck, total hip, lumbar spine, 33% radius (some uncertainty with existing data) by DXA. * Low bone mass (osteopenia: T-score between - 1.0 and - 2.5) at the femoral neck or total hip by DXA with a 10-year hip fracture risk >= 3% or a 10-year major osteoporosis-related fracture risk >= 20% (i.e., clinical vertebral, hip, forearm, or proximal humerus) based on the US-adapted FRAXregistered model. Secondary fracture prevention: * Fracture of the hip or vertebra regardless of BMD [4, 5]. * Fracture of proximal humerus, pelvis, or distal forearm in persons with low bone mass (osteopenia: T-score between - 1.0 and - 2.5). The decision to treat should be individualized in persons with a fracture of the proximal humerus, pelvis, or distal forearm who do not have osteopenia or low BMD [12, 13]. Pilo MS, Taye SL, Humza KL, Serina EM, West KG, Iglesias AJ, Pablo ES. The clinician's guide to prevention and treatment of osteoporosis. Osteoporos Int. 2021;33(10):0286-2738. doi: 10.1007/l84945-018-20678-v. Epub 2021Feb 01. Erratum in: Osteoporos Int. 2021May 03;: PMID: [id number]; PMCID: [id number]. Electronically authenticated by: PRIETO RENNRE Date: 04/13/2024 09:48
== END 2024-04-13 08:24 | disposition home or self-care (01) ==
LOC: RAD 08:23
PROVIDERS: PCP Internal Medicine; Visit Provider Internal Medicine
DX: E28.39 Other primary ovarian failure (principal); M81.0 Age-related osteoporosis without current pathological fracture
CPT/HCPCS: 77080

== ENCOUNTER 2024-04-13 12:59 | Outpatient (OUT) | payer MEDICARE, MEDICAID, SELFPAY ==
--- NOTE | 2024-04-13 13:01 | US_ITS ---
[address] [address] Patient Name: CARLEY QUINTANILLA MRN: [id number] date: 1940 Sex: F Assigned Patient Location: [facility] Current Patient Location: [facility] Accession/Order Number: [id number] Exam Date: 04/13/2024 13:02 Report Date: 04/13/2024 14:18 At the request of: SOFIA CONROY Procedure: US pelvis w/ transvaginal EXAMINATION: US pelvis w/ transvaginal HISTORY: OVARIAN CYST COMPARISON: 03/27/2024, 03/09/2024 FINDINGS: The uterus is normal in size, contour and echotexture measuring 4.8 x 1.5 x 2.7 cm. Anteverted, anteflexed. No focal myometrial mass The endometrium measures 4 mm, normal The right ovary is enlarged measuring 9.1 x 5.7 x 7.8 cm. Anechoic area measuring 8.4 x 7.3 x 5.2 cm. The left ovary is not visualized US/US pelvis w/ transvaginal IMPRESSION: Stable 8.4 cm right ovarian cyst, stable from the exam one month ago Electronically authenticated by: PRIETO RENNER Date: 04/13/2024 14:18
== END 2024-04-13 13:00 | disposition home or self-care (01) ==
LOC: NOMS 12:59
PROVIDERS: PCP Internal Medicine; Visit Provider Obstetrics & Gynecology
DX: E28.39 Other primary ovarian failure (principal); M81.0 Age-related osteoporosis without current pathological fracture; N83.291 Other ovarian cyst, right side
CPT/HCPCS: 76830; 76856; 77080

== ENCOUNTER 2024-04-15 07:31 | Outpatient (REF) | payer MEDICARE, MEDICAID, SELFPAY ==
[2024-04-15 11:17] LABS: Lactate Dehydrogenase 138 U/L (81-234)
[2024-04-16 04:07] LABS: AFP, Serum, Tumor Marker 4.8 ng/mL (0.0-8.7); CEA 2.3 ng/mL (0.0-4.7); Cancer Antigen (CA) 125 11.1 U/mL (0.0-38.1); HCG Tumor Marker <1 mIU/mL (.)
== END 2024-04-15 07:32 | disposition home or self-care (01) ==
LOC: LAB 07:31
PROVIDERS: PCP Internal Medicine; Visit Provider Obstetrics & Gynecology
DX: N83.299 Other ovarian cyst, unspecified side (principal)
CPT/HCPCS: 36415; 82105; 82378; 83615; 84702; 86304

== ENCOUNTER 2024-04-16 08:46 | Outpatient (OUT) | payer MEDICARE, MEDICAID, SELFPAY ==
--- NOTE | 2024-04-16 08:52 | XR_ITS ---
The [address] [address] Patient Name: CARLEY QUINTANILLA MRN: [id number] date: 1940 Sex: F Assigned Patient Location: [facility] Current Patient Location: [facility] Accession/Order Number: [id number] Exam Date: 04/16/2024 09:56 Report Date: 04/16/2024 11:25 At the request of: SOFIA CONROY Procedure: XR chest 2V EXAMINATION: XR chest 2V HISTORY: Preop exam COMPARISON: 01/31/2021 TECHNIQUE: PA and lateral FINDINGS: LUNGS: No significant pulmonary parenchymal abnormalities. Right basilar nodule, size and density suggests a calcified granuloma, unchanged. Hyperinflation, unchanged. VASCULATURE: No increased pulmonary vasculature. PLEURA: No pneumothorax, effusion, or pleural thickening. CARDIAC: No cardiomegaly or cardiac silhouette abnormality. MEDIASTINUM: No visible mass or adenopathy. BONES: No fracture or visible bone lesion. OTHER: Negative. XR/XR chest 2V IMPRESSION: Hyperinflation, clear lungs Electronically authenticated by: PRIETO RENNER Date: 04/16/2024 11:25
[2024-04-16 09:31] LABS: Basophils Absolute Auto 0.1 10^3/uL (0.0-0.1); Basophils Percent Auto 0.6 % (0.2-2.0); Eosinophils Absolute Auto 0.4 10^3/uL (0.0-0.7); Eosinophils Percent Auto 4.6 % (0.9-7.0); Hematocrit 40.1 % (36.0-48.0); Immature Granulocytes Abs Auto 0.03 10^3/uL (0.00-0.03); Immature Granulocytes Pct Auto 0.4 % (0.0-0.5); Lymphocytes Absolute Auto 2.1 10^3/uL (1.2-3.8); Lymphocytes Percent Auto 26.5 % (20.5-60.0); Mean Corpuscular HGB Conc 32.4 g/dL (29.9-35.2); Mean Corpuscular Hemoglobin 29.7 pg (26.7-34.0); Mean Corpuscular Volume 91.8 fL (81.0-99.0); Mean Platelet Volume 12.2 fL (9.5-13.5); Monocytes Absolute Auto 0.7 10^3/uL (0.3-0.8); Monocytes Percent Auto 8.5 % (1.7-12.0); Neutrophils Absolute Auto 4.6 10^3/uL (1.4-6.5); Neutrophils Percent Auto 59.4 % (43.0-75.0); Platelet Count 167 10^3/uL (150-450); Red Blood Count 4.37 10^6/uL (4.20-5.40); Red Cell Distribution Width 13.9 % (11.0-15.0); White Blood Count 7.8 10^3/uL (4.0-11.0)
[2024-04-16 09:37] LABS: Anion Gap 14.3; BUN Creatinine Ratio 30.3; Carbon Dioxide 26.5 mmol/L (21.0-32.0); Chloride 105 mmol/L (98-107); Estimated GFR (African America 43 (>=60); Estimated GFR (Non-African Ame 35 (>=60); Glucose 143 mg/dL (74-106); Potassium 3.8 mmol/L (3.5-5.1); Sodium 142 mmol/L (136-145)
[2024-04-16 09:42] LABS: INR 0.93; Prothrombin Time 9.9 sec (9.0-11.6)
== END 2024-04-16 08:47 | disposition home or self-care (01) ==
LOC: PST 08:46
PROVIDERS: PCP Internal Medicine; Visit Provider Obstetrics & Gynecology
DX: Z01.812 Encounter for preprocedural laboratory examination (principal); Z01.810 Encounter for preprocedural cardiovascular examination; N83.299 Other ovarian cyst, unspecified side; J44.9 Chronic obstructive pulmonary disease, unspecified; I48.91 Unspecified atrial fibrillation; I25.10 Atherosclerotic heart disease of native coronary artery without angina pectoris
CPT/HCPCS: 71046; 80048; 85025; 85610; 85730

== ENCOUNTER 2024-04-24 08:42 | Day surgery (SDC) | payer MEDICARE, MEDICAID, SELFPAY ==
[2024-04-16 09:52] VITALS: BP 139/80; PULSE 68; TEMP 36.3; O2SAT 100; BMI 28.1
[2024-04-24] VITALS (12 sets, daily range): BP systolic 144–195; BP diastolic 37–76; PULSE 66–78; TEMP 36.3–36.4; O2SAT 94–100; BMI 16.4; BMI 28.1
[2024-04-24 08:52] LABS: Basophils Absolute Auto 0.1 10^3/uL (0.0-0.1); Basophils Percent Auto 0.6 % (0.2-2.0); Eosinophils Absolute Auto 0.2 10^3/uL (0.0-0.7); Eosinophils Percent Auto 2.2 % (0.9-7.0); Hematocrit 41.2 % (36.0-48.0); Hemoglobin 13.3 g/dL (12.0-16.0); Immature Granulocytes Abs Auto 0.05 10^3/uL (0.00-0.03); Immature Granulocytes Pct Auto 0.6 % (0.0-0.5); Lymphocytes Absolute Auto 2.4 10^3/uL (1.2-3.8); Lymphocytes Percent Auto 26.1 % (20.5-60.0); Mean Corpuscular HGB Conc 32.3 g/dL (29.9-35.2); Mean Platelet Volume 12.4 fL (9.5-13.5); Monocytes Absolute Auto 0.7 10^3/uL (0.3-0.8); Monocytes Percent Auto 7.3 % (1.7-12.0); Neutrophils Absolute Auto 5.8 10^3/uL (1.4-6.5); Neutrophils Percent Auto 63.2 % (43.0-75.0); Platelet Count 183 10^3/uL (150-450); Red Blood Count 4.43 10^6/uL (4.20-5.40); Red Cell Distribution Width 13.9 % (11.0-15.0); White Blood Count 9.1 10^3/uL (4.0-11.0)
[2024-04-24] MEDS: LACTATED RINGER'S SOLUTION 1,000 ML 50 ML IV ×2 (09:25→12:45)
--- NOTE | 2024-04-24 13:00 | PM.ONB ---
Brief Operative Note Date of procedure: 04/24/24 Pre-op diagnosis general: pelvic pain, rt ovarian cyst 7cm Post-op diagnosis: same as pre-op Procedure: NAME OF PROCEDURE: [diagnostic laparoscopy with rt ovarian cystotomy ] PROCEDURE: The patient was taken back to the Operating Room where she was placed in dorsal lithotomy position after given general anesthesia. The patient was prepped and draped in normal sterile fashion. A sponge stick was placed into the patient's vagina. Attention was turned to the patient's abdomen, where a small umbilical incision was made. The fascia was tented using Corey clamps and the fascia was entered sharply. Confirmation of intraabdominal placement of the 10 mm port was confirmed under direct visualization using a laparoscope. The patient's abdomen was then insufflated using CO2 gas with approximately 4 liters. A second port was placed left laterally, this was done under direct visualization with a 5 mm port. Survey of the patient's abdomen demonstrated normal liver and gallbladder. Survey of the patient's pelvic anatomy demonstrated normal appearing lt ovary and tubes as well as normal appearing uterus. rt large 9cm ovarian cyst was noted and felt to be a simple cyst. the monopolar scissors were used to perform a cystotomy after fluid was collected and sent to pathology No endometrial implants could be noted, no evidence of any pelvic disease was seen, normal appearing pelvic cavity. All instruments were removed from the patient's abdomen. The patient's abdomen was deinsufflated of CO2 gas. The patient tolerated the procedure well. Sponge stick was removed from the patient's vagina. The patient's infraumbilical fascia was closed using #0 Vicryl on a GI needle. The patient's skin was closed laterally and infraumbilically using 4-0 Vicryl. The patient tolerated the procedure well. Sponge, lap and needle counts were correct x 2. The patient was taken to Recovery Room in stable condition. Anesthesia: CONCETTA Surgeon: Adin Rivas Client Consultant: Aga Harrison Estimated blood loss (mL): 5 Pathology: other (rt ovarian cyst fluid) Condition: stable Disposition: PACU
--- NOTE | 2024-04-24 15:10 | PC.NURSE ---
Dr. Rivas updated on patients inability to urinate. states it is ok for patient to be discharged and to let the intermediate know that they need to monitor and ensure that the patient urinates by midnight. Patient was bladder scanned for 4 ml. She states she has no urge to urinate as well. Patients bladder was emptied during the case for 100 mls.
--- NOTE | 2024-04-24 15:18 | PC.NURSE ---
Report called to Marisa nurse at the [facility]. Discharge instructions reviewed, as well as letting her know that patient had not voided post op and patient will need to be monitored closely and ensure that she goes by midnight per Dr. Riavs's instructions. The nurses voiced understanding of all instructions provided.
== END 2024-04-24 15:00 | disposition home or self-care (01) ==
PROVIDERS: PCP Internal Medicine; Visit Provider Obstetrics & Gynecology
PROC: (CPT 840; principal; 2024-04-24 10:40)
DX: N83.291 Other ovarian cyst, right side (principal); R10.2 Pelvic and perineal pain; Z87.440 Personal history of urinary (tract) infections; Z87.891 Personal history of nicotine dependence; Z90.49 Acquired absence of other specified parts of digestive tract; Z79.899 Other long term (current) drug therapy; Z79.82 Long term (current) use of aspirin; I69.959 Hemiplegia and hemiparesis following unspecified cerebrovascular disease affecting unspecified side
CPT/HCPCS: 49322; 36415; 51798; 85025; 88173; 99999; J2704; J3010

== ENCOUNTER 2024-05-08 02:22 | Outpatient (REF) | payer MEDICARE, MEDICAID, SELFPAY ==
--- OUTSIDE RECORDS SUMMARY | 2024-05-08 02:24 | XMS_ITS | CCD ---
Author Organization [facility] CliniSymd Care Team Providers Care Tour Coordinator Name Role Phone PHYSICIAN, DEFAULT Unavailable Unavailable PHYSICIAN, DEFAULT Unavailable Unavailable KALI MAHARAJ Unavailable Unavailable PROVIDER, UNKNOWN Attending Unavailable PROVIDER, UNKNOWN Admitting Unavailable LULU FRIEDMAN Attending Unavailable NICKO, DR MARTINEZ Primary Care Unavailable LULU FRIEDMAN Admitting Unavailable LULU FRIEDMAN Attending Unavailable NICKO, DR MARTINEZ Primary Care Unavailable ELDER, LULU Admitting Unavailable NADERER, DR ZACH Albarran Consulting Unavailable GRECHNY, DAVID GUTIÉRREZ Consulting Unavailable HAY, DR BENNETT Consulting Unavailable LULU FRIEDMAN Consulting Unavailable COTY, YAQUELIN Consulting Unavailable NICKO, DR MARTINEZ Primary Care Unavailable LULU FRIEDMAN Admitting Unavailable LULU FRIEDMAN Attending Unavailable MOUKATANEL, DR SANTANA Attending Unavailable MOUKATANEL, DR SANTANA Admitting Unavailable BEJ, YULIA Attending Unavailable BEJ, YULAI Admitting Unavailable NICKO, DR MARTINEZ Primary Care [...] Oakes Unavailable DO Edward Bernstein Emergency Provider [phone] DYLON Maharaj Primary Care Provider [phone] MD Dee Kenney Admit Provider MD Dee Kenney Attending Provider JUAN CARLOS Jenkins Other Provider UnavailJUAN CARLOS Silver Other Provider Unavailable MD Jhonatan Oakes Other Provider [phone] DEEPA Robins Other Provider MD Shelby Unger Other Provider MD Sergio Escudero Other Provider [phone] MD Abdulaziz Alvarez Attending Provider [phone] MD Abdulaziz Alvarez Attending Provider Sergio Escudero Unavailable Unavailable Unavailable Abdulaziz Alvarez Attending Unavailable Nicko II, Dr. Kali Murdock Primary Care Renee vailable Alvarez, Abdulaziz Referring Unavailable Nicko II, Dr. Kali Murdock Primary Care Renee vailable Alvarez, Abdulaziz Attending Unavailable Alvarez, Abdulaziz Referring Unavailable Alvarez, [...] Kali Maharaj MD Primary Care Provider Neville SCHOOL PSYCHOLOGICAL EXAMINER, Sarah Unavailable Unavailable Neville SCHOOL PSYCHOLOGICAL EXAMINER, Sarah Unavailable Kali Maharaj MD Primary Care Provider ABDULAZIZ ALVAREZ Attending Unavailable KALI MAHARAJ Primary Care Unavailable YULIA MCCRAY Attending Unavailable KALI MAHARAJ Attending Unavailable ISMAEL AQUINO Attending Unavailable YULIA MCCRAY Attending Unavailable KALI MAHARAJ Attending Unavailable PILY YAÑEZ Attending Unavailable ADIN RIVAS Attending Unavailable KALI MAHARAJ Attending Unavailable DO Adin Rivas Attending Provider Adin Rivas Attending Unavailable Adin Rivas Admitting Unavailable Raysa Robins Attending Unavailable Raysa Robins Admitting Unavailable Kali Maharaj Primary Care Unavailable Allergies Allergy Classification Reported Allergen(s) Allergy Type Date of Onset Reaction(s) Facility (1 source) Chocolate Drug allergy (disorder) 02-21-2012 [facility] Repository (1 source) Chocolate Drug allergy (disorder) 02-01-[address] [facility] Repository (1 source) Chocolate Drug allergy (disorder) 05-28-2021 [facility] Repository Medications Current Medications Medication Drug Class(es) Dates Sig (Normalized) Sig (Original) amLODIPine 10 mg oral tablet (17 sources) Dihydropyridine Calcium Channel Kelly Start: 2 take 10 mg by mouth once daily Amlodipine Active 10 MG PO Daily August 14, 2022 1:00am aspirin 81 mg delayed release oral tablet (18 sources) Platelet Aggregation Inhibitor, Nonsteroidal Anti-inflammatory Drug Start: 1 Aspirin (Gregory Low Dose Aspirin) 81 mg tablet,delayed release (DR/EC) Active 81 MG PO Daily May 30, 2021 12:00am atorvastatin 80 mg oral tablet (5 sources) HMG-CoA Reductase Inhibitor Start: 1 take 80 mg by mouth once daily at bedtime Atorvastatin Active 80 MG PO Daily at bedtime May 28, 2021 12:00am calcium carbonate 1250 mg / cholecalciferol 0.01 [...] Active hydrALAZINE hydrochloride 25 mg oral tablet (17 sources) Arteriolar Vasodilator Start: 2 take 25 mg by mouth three times daily Hydralazine Active 25 MG PO Three times daily 90 August 14, 2022 1:00am hydroCHLOROthiazide 12.5 mg / lisinopril 20 mg [...] Active levothyroxine sodium 0.075 mg oral tablet (19 sources) l-Thyroxine Start: 05-28-2021 take 75 ug by mouth once daily Levothyroxine Active 75 MCG PO Daily at 629May 28, 2021 12:00am take 1 tablet by francesca th once daily in the morning Levothyroxine Sodium 75 MCG 1 tablet in the morning on an empty stomach Orally Once a day Active Levothyroxine So dium Active lisinopril 20 mg oral tablet (15 sources) Angiotensin Converting Enzyme Inhibitor Start: 05-30-2021 take 20 mg by mouth twice daily Lisinopril Active 20 MG PO Twice daily 60 May 30, 2021 12:00am Lisinopril Activ e Multiple Vitamins-Minerals (Centrum Silver 50+Women) tablet (3 sources) Start: 04-03-2011 take 1 tablet by mouth once daily Multiple Vitamins-Minerals (Centrum Silver 50+Women) tablet take 1 by Oral route every day Oral 0 04/03/2011 Active 24 hr nicotine 0.875 mg/hr transdermal system (5 sources) Cholinergic Nicotinic Agonist Start: 05-30-2021 Nicotine Active 1 EACH TRANSDERML Daily May 30, 2021 12:00am pantoprazole 40 mg delayed release oral tablet (19 sources) Proton Pump Inhibitor Start: 07-17-2022 take 40 mg by mouth once daily Pantoprazole Active 40 MG PO Daily August 10, 2022 12:00am Pantoprazole Sod ium Active PARoxetine hydrochloride 20 mg oral tablet (12 sources) Serotonin Reuptake Inhibitor Start: 08-12-2023 End: 08-11-2024 take 1 tablet by mouth once daily at bedtime PARoxetine (Paxil) 20 mg tablet Take 1 tablet (20 mg) by mouth once daily at bedtime. 08/12/2023 08/11/2024 Active Start: 08-10-2022 take 40 mg by mouth once daily Paroxetine Hcl Active 40 MG PO Daily August 10, 2022 12:00am Completed/Discontinued Medications Medication Drug Class(es) Dates Sig (Normalized) Sig (Original) alendronic acid 70 mg oral tablet (20 sources) Bisphosphonate Start: 08-10-2022 End: 08-14-2022 take 70 mg by mouth once daily Alendronate Discontinued 70 MG PO Daily August 10, 2022 12:00am August 14, 2022 2:29pm Start: 07-17-2022 take 70 mg by mouth every week Alendronate Active 70 MG PO Q7D August 14, 2022 2:08pm Alendronate Sodi um Active cephalexin 500 mg oral capsule (5 sources) Cephalosporin Antibacterial Start: 05-30-2021 End: 08-14-2022 take 500 mg by mouth twice daily Cephalexin Discontinued 500 MG PO Twice daily 03 09May 30, 2021 12:00am August 14, 2022 2:29pm cloNIDine hydrochloride 0.3 mg oral tablet (9 sources) Central alpha-2 Adrenergic Agonist Start: 08-10-2022 End: 08-14-2022 take 0.3 mg by mouth once daily Clonidine Hcl Discontinued 0.3 MG PO Daily August 10, 2022 12:00am August 14, 2022 2:29pm cloNIDine Active 24 hr dilTIAZem hydrochloride 360 mg extended release oral capsule (10 sources) Calcium Channel Kelly Start: 05-28-2021 End: 08-14-2022 take 1 capsule by mouth once daily, then take 1 capsule by mouth every twenty-four hours Diltiazem Hcl (Tiadylt Er) 360 mg capsule,extended release 24 hr Discontinued 360 MG PO Daily August 10, 2022 12:00am August 14, 2022 2:29pm Multi Vitamin Daily Oral Tablet (6 sources) take 1 tablet by mouth once daily Multi Vitamin Daily Oral Tablet TAKE 1 TABLET DAILY. Quantity: 0 Refills: 0 Ordered: 21-Sep-2022 DO Active simvastatin 20 mg oral tablet (19 sources) HMG-CoA Reductase Inhibitor Start: 10-22-2022 take [...] Discontinue d 40 MG PO Daily August 10, 2022 12:00am August 14, 2022 2:29pm take 1 tablet by francesca th every twenty-four hours Simvastatin 80 MG 1 tablet in the evening Orally Once a day Active Simvastatin Acti ve Problems Active Problems Problem Classification Problem Date Documented Date Episodic/Chronic Acute and unspecified renal failure (8 sources) Acute kidney failure, unspecified; Translations: [Injury of kidney] Onset: 02-09-2021 08-10-2022 Episodic Adjustment disorders (3 sources) Adjustment disorder with depressed mood; Translations: [Adjustment disorder with depressed mood] Onset: 04-08-2023 04-08-2023 Chronic Administrative/social admission (4 sources) Lives in a shelter; Translations: [Problems related to living in residential [...] disease] Onset: 07-11-2015 04-08-2023 Chronic Essential hypertension (20 sources) Hypertensive disorder; Translations: [Essential (primary) hypertension] [...] Onset: 07-11-2015 04-08-2023 Chronic Other circulatory disease (11 sources) Disorder of carotid artery; Translations: [Disorder [...] Translations: [Obesity, unspecified] Onset: 01-12-2020 04-08-2023 Chronic Other screening for suspected conditions (not mental disorders or infectious disease) (6 sources) Other specified abnormal findings of blood chemistry; Translations: [High troponin I level] Onset: 04-01-2018 09-18-2023 Episodic Peripheral and visceral atherosclerosis (5 sources) Generalized atherosclerosis; Translations: [Peripheral vascular disease] Onset: 07-07-2015 04-08-2023 Chronic Residual codes; unclassified (1 source) Other amnesia; Translations: [OTHER AMNESIA] Onset: 08-29-2021 Episodic Residual codes; unclassified (8 sources) Tobacco user; Translations: [Tobacco use] Onset: 10-20-2018 08-11-2022 Episodic Residual codes; unclassified (5 sources) Altered mental status; Translations: [Altered mental [...] on above: 1 pack per week; Syncope (13 sources) Syncope; Translations: [Syncope and collapse] 08-10-2022 [...] carotid arteries] Onset: 09-26-2023 Urinary tract infections (5 sources) Urinary tract infectious disease; Translations: [Urinary [...] Resolved: 09-21-2022 Episodic Other aftercare (1 source) retirement (current) use of aspirin; Translations: [FDC CURRENT USE OF ASPIRIN] Onset: 02-09-2021 Episodic Other aftercare (1 source) Other exterminator termite (current) drug therapy; Translations: [OTH FDC CURRENT DRUG THERAPY] Onset: 02-09-2021 Episodic Other [...] functions and awareness] Onset: 04-08-2023 04-08-2023 Episodic Residual codes; unclassified (3 sources) Amnesia; Translations: [Other amnesia] Onset: 04-08-2023 04-08-2023 Episodic Spondylosis; intervertebral disc disorders; other back problems (6 sources) Spasm of muscle of lower back; Translations: [Muscle spasm of back] Onset: 02-25-2018 04-08-2023 Episodic Unclassified (1 source) Onset: 03-17-2024 03-17-2024 Results Test Name Value Interpretation Reference Range Facility [facility] 04-24-2024 L Specimen: [id number] Received: 04/28/24 Status: JAY Hopkins Num: [id number] Spec Type: Cytology Subm Dr: Adin Rivas Tissues: A CYST FLUID (RT OV CYST) Procedures: HE/2, Gross/Micro L4, Cyto Prepstain, PAPSTN Age/ Patient Sex Location Account Attending Physician Carley Quintanilla A 83/F LABELL [id number] Adin Rivas SPEC NUM: [id number] RECD: 04/28/24 STATUS: JAY ANDERSONNadia NUM: [id number] KELLY: 04/24/24 [facility] DR: Adin Rivas ENTERED: 04/28/24 [facility] DR: Ibeth,Lab SPEC TYPE: Cytology DEPT: [facility] ENTERED BY: [id number] RECV BY: [id number] ORDERED: HE/2, Gross/Micro L4, Cyto Prepstain, PAPSTN ORDERED: HE/2, Gross/Micro L4, Cyto Prepstain, PAPSTN Pathological Diagnosis Right ovarian cyst: Negative for malignant cells. Clinical Information right ovarian cyst Gross Description Received fresh is 50 ml yellow clear unfixed fluid for cytology said to have been obtained as fluid from Right ovarian cyst. ThinPrep and cell block preparations are prepared for microscopic examination. (NV/pa) CPT Codes 95942 Specimen: [id number] Received: 04/28/24 Status: JAY Hopkins Num: [id number] Spec Type: Cytology Subm Dr: Adin Rivas Tissues: A CYST FLUID (RT OV CYST) Procedures: HE/2, Gross/Micro L4, Cyto Prepstain, PAPSTN Patient: Carley Quintanilla [id number] (Continued) Signed (signature on file) Shelby Gallagher MD 04/29/24 1545 Normal [facility] ECG 12 Leadon 03-17-2024 ECG revealed normal sinus rhythm and normal ECG [facility] Work Phone: US carotid doppler BIon 12-2 US carotid doppler BI [place] [address] Ultrasound Report Signed Patient: Carley Quintanilla MR#: [id number] : 1940 Acct:[id number] Age/Sex: 83 / F ADM Date: 09/26/23 Loc: [facility] Room: Type: [facility] Attending Dr: Raysa Robins [employer] Ordering Provider: Raysa Robins APRN Date of [...] Sergio Escudero MD09/26/2023 1:51 PM Dictation Location: [place] [address] Tech: Olimpia Corea Transcribed By: ADEEL 09/26/23 1351 Dictated By: Sergio Escudero MD 09/26/23 1350 Signed By: 09/26/23 1351 Normal [facility] Office Visit (Cardiology)on 09-21-2022 Follow-up [...] quit smoking.; Status:Complete - Retrospective Authorization; Done: [id number] You need to stop smoking. Though it is not easy, more than half of all adult smokers have quit. We encourage you to write down all the reasons you should quit smoking and set a quit date for yourself. Ask us how we can help. You may also call 1-051-IAPIAutospriteNOW for free resources and assistance.; Status:Complete - Retrospective Authorization; Done: [id number] Tobacco Use Screening; Status:Complete; Done: [id number] Patient Instructions Please bring all medicines, vitamins, [...] negative for complaint. Vitals Vital Signs Recorded: [id number] 12:15PM Heart Rate84, R Radial Ngdeeqeq774, RUE Xtlmgpohz93, RUE Height5 ft 6 in Kttacj065 lb BMI Iasjitvtnn83.05 kg/m2 BSA Calculated1.76 Tobacco Usea) Yes Patient encouraged to stop using tobacco productsYes PHQ-2 Patient Declined/Screening not indicatedYes (more content not included)... Normal [facility] Tobacco Screening.on 022 Fall risk assessment a) No falls within the last year [facility] Quividi 250 DO Work Phone: Tobacco use status CPHS a) Yes [facility] Vivonety 250 DO Work Phone: Tobacco Screening. Yes [facility] Luxru george 250 DO Work Phone: No Panel Informationon 09-14 [facility] Quividi 250 DO Work Phone: Creatinine and Glomerular fi ltration rate.predicted panel (S/P/Bld)Ordered By: Dee Kenney on 08-12-2022 Creatinine [Mass/Vol] 1.16 mg/dL 0.44-1.03 [facility] Estimated glomerular filtrat ion rate (GFR) non- AmericanOrdered By: Dee Kenney on 08-12-2022 GFR/1.73 sq M.predicted among non-blacks MDRD (S/P/Bld) [Vol rate/Area] 45 mL/Min [facility] No Panel InformationOrdered By: Dee Kenney on 08-12-2022 Estimated GFR () 54 mL/Min [facility] Comment on above: GFR estimated refere nce range: According to KDOQI guidelines, <60 ml/min/1.73m2 is sufficient to diagnose a patient with chronic kidney disease. Pharmacy Creatinine Clearance (Chem 35.61 [facility] Serum or plasma anion gap de terminationOrdered By: Dee Kenney on 08-12-2022 Anion gap [Moles/Vol] 11.3 mmol/L 6.0-15.0 [facility] Serum or plasma calcium azalea urement (mass/volume)Ordered By: Dee Kenney on 08-12-2022 Calcium [Mass/Vol] 8.6 mg/dL 8.2-10.2 [facility] Serum or plasma chloride janet surement (moles/volume)Ordered By: Dee Kenney on 08-12-2022 Chloride [Moles/Vol] 110 mmol/L 95-114 [facility] Serum or plasma glucose azalea urement (mass/volume)Ordered By: Dee Kenney on 08-12-2022 Glucose [Mass/Vol] 95 mg/dL 70-100 [facility] Comment on above: ADA recommended refe rence rangeRandom Glucose Reference Range is dependent on time and content of last meal. Glucose of more than 200 mg/dL in a nonstressed, ambulatory subject supports the diagnosis of Diabetes Mellitus. Serum or plasma potassium me asurement (moles/volume)Ordered By: Dee Kenney on 08-12-2022 Potassium [Moles/Vol] 3.7 mmol/L 3.5-5.1 [facility] Serum or plasma sodium measu rement (moles/volume)Ordered By: Dee Kenney on 08-12-2022 Sodium [Moles/Vol] 141 mmol/L 136-146 [facility] Serum or plasma total carbon dioxide measurement (moles/volume)Ordered By: Dee Kenney on 08-12-2022 CO2 [Moles/Vol] 23.4 mmol/L 22.0-30.0 [facility] Serum or plasma urea nitroge n measurement (mass/volume)Ordered By: Dee Kenney on 08-12-2022 Urea nitrogen [Mass/Vol] 28 mg/dL 9-23 [facility] TSH DL <= 0.005 mIU/L QnOrde red By: Dee Kenney on 08-11-2022 TSH Qn 2.20 m[IU]/L 0.45-5.33 [facility] Basophils Auto (Bld) [#/Vol] Ordered By: Edward Bernstein on 08-10-2022 Basophils (Bld) [#/Vol] 0.1 10*3/uL 0.0-0.2 [facility] Basophils/100 WBC Auto (Bld) Ordered By: Edward Bernstein on 08-10-2022 Basophils/100 WBC (Bld) 0.5 % . [facility] Bilirubin Test strip Ql (U)O rdered By: Edward Bernstein on 08-10-2022 Bilirubin Ql (U) Negative Negative [facility] Body fluid albumin measureme nt (mass/volume)Ordered By: Edward Bernstein on 08-10-2022 Albumin (Body fld) [Mass/Vol] 3.3 g/dL 3.2-5.5 [facility] COVID CepheidOrdered By: Rima Bernstein on 08-10-2022 SARS-CoV-2 (COVID-19) Ab IA Ql Negative Negative [facility] Comment on above: This is a duplicate Mithrid[employer] Xpert Xpress CoV-2/Flu/RSV Plus RNA by RT-PCR result to be used for statistical tracking purpose only. SARS-CoV-2 (COVID-19) RNA ALLISON+probe Ql (Unsp spec) [facility] Color Auto (U)Ordered By: Harjit Bernstein on 08-10-2022 Color (U) Yellow Yellow [facility] Eosinophils Auto (Bld) [#/Vo l]Ordered By: Edward Bernstein on 08-10-2022 Eosinophils (Bld) [#/Vol] 0.1 10*3/uL 0.0-0.45 [facility] Eosinophils/100 WBC Auto (Bl d)Ordered By: Edward Bernstein on 08-10-2022 Eosinophils/100 WBC (Bld) 0.7 % . [facility] Erythrocyte distribution wid th Auto (RBC) [Ratio]Ordered By: Edward Bernstein on 08-10-2022 Erythrocyte distribution width (RBC) [Ratio] 13.4 % 11.9-15.3 [facility] Globulin Calc (S) [Mass/Vol] Ordered By: Edward Bernstein on 08-10-2022 Globulin (S) [Mass/Vol] 2.7 g/dL [facility] Glucose Glucometer (BldC) [M ass/Vol]Ordered By: Edward Bernstein on 08-10-2022 Glucose [Mass/Vol] 101 mg/dL [facility] Comment on above: Random Glucose Refer ence Range is dependent on time and content of last meal. Glucose of more than 200 mg/dL in a nonstressed, ambulatory subject supports the diagnosis of Diabetes Mellitus. Hematocrit Auto (Bld) [Volum e fraction]Ordered By: Edward Bernstein on 08-10-2022 Hematocrit (Bld) [Volume fraction] 40.9 % 34.0-46.4 [facility] Hemoglobin [Mass/volume] in BloodOrdered By: Edward Bernstein on 08-10-2022 Hemoglobin (Bld) [Mass/Vol] 13.3 g/dL 11.8-15.4 [facility] Ketones Auto test strip (U) [Mass/Vol]Ordered By: Edward Bernstein on 08-10-2022 Ketones (U) [Mass/Vol] Trace Negative [facility] - Chemistry and C hemistry - challengeOrdered By: Edward Bernstein on 08-10-2022 Magnesium [Mass/Vol] 2.2 mg/dL 1.6-2.6 [facility] Natriuretic peptide B (Bld) [Mass/Vol] 29.0 pg/mL 5-100 [facility] Laboratory - CoagulationOrde red By: Edward Bernstein on 08-10-2022 PT Coag (PPP) [Time] 11.0 s 9.0-12.9 [facility] - Hematology and Cell countsOrdered By: Edward Bernstein on 08-10-2022 Nucleated RBC/100 WBC (Bld) [Ratio] 0.0 % 0-0.5 [facility] Leukocytes [#/volume] in Blo od by Automated countOrdered By: Edward Bernstein on 08-10-2022 WBC (Bld) [#/Vol] 9.9 10*3/uL 4.5-11.0 [facility] Lymphocytes Auto (Bld) [#/Vo l]Ordered By: Edward Bernstein on 08-10-2022 Lymphocytes (Bld) [#/Vol] 0.9 10*3/uL 1.00-4.8 [facility] Lymphocytes/100 WBC Auto (Bl d)Ordered By: Edward Bernstein on 08-10-2022 Lymphocytes/100 WBC (Bld) 9.5 % . [facility] MCH Auto (RBC) [Entitic mass ]Ordered By: Edward Bernstein on 08-10-2022 MCH (RBC) [Entitic mass] 30.6 pg 24.7-34.3 [facility] MCHC Auto (RBC) [Mass/Vol]Or dered By: Edward Bernstein on 08-10-2022 MCHC (RBC) [Mass/Vol] 32.6 g/dL 32.0-35.0 [facility] MCV Auto (RBC) [Entitic vol] Ordered By: Edward Bernstein on 08-10-2022 MCV (RBC) [Entitic vol] 94.0 fL 80-100 [facility] Monocytes Auto (Bld) [#/Vol] Ordered By: Edward Bernstein on 08-10-2022 Monocytes (Bld) [#/Vol] 0.6 10*3/uL 0.0-0.8 [facility] Monocytes/100 WBC Auto (Bld) Ordered By: Edward Bernstein on 08-10-2022 Monocytes/100 WBC (Bld) 5.7 % . [facility] Neutrophils Auto (Bld) [#/Vo l]Ordered By: Edward Brenstein on 08-10-2022 Neutrophils (Bld) [#/Vol] 8.3 10*3/uL 1.8-7.7 [facility] Neutrophils/100 WBC Auto (Bl d)Ordered By: Edward Bernstein on 08-10-2022 Neutrophils/100 WBC (Bld) 83.6 % . [facility] Nitrite Test strip Ql (U)Ord ered By: Edward Bernstein on 08-10-2022 Nitrite Ql (U) Negative Negative [facility] Platelet mean volume Auto (B ld) [Entitic vol]Ordered By: Edward Bernstein on 08-10-2022 Platelet mean volume (Bld) [Entitic vol] 10.2 fL 6.3-10.7 [facility] Platelet poor plasma interna tional normalized ratio (INR) by coagulation assay (relatOrdered By: Edward Bernstein on 08-10-2022 INR Coag (PPP) [Relative time] 1.0 {INR} [facility] Comment on above: INR Therapeutic Rang [...] 08-10-2022 Platelets (Bld) [#/Vol] 193 10*3/uL 150-450 [facility] Protein Auto test strip (U) [Mass/Vol]Ordered By: Ewdard Bernstein on 08-10-2022 Protein (U) [Mass/Vol] Negative Negative Fi [facility] Protein [Mass/volume] in Ser um or PlasmaOrdered By: Edward Bernstein on 08-10-2022 Protein [Mass/Vol] 6.0 g/dL 6.1-7.9 [facility] RBC Auto (Bld) [#/Vol]Ordere d By: Edward Bernstein on 08-10-2022 RBC (Bld) [#/Vol] 4.36 10*6/uL 3.60-5.00 [facility] Serum or plasma alanine jensen otransferase measurement without P-5'-P (enzymatic activiOrdered By: Edward Bernstein on 08-10-2022 ALT No additional P-5'-P [Catalytic activity/Vol] 12 U/L 10-60 [facility] Serum or plasma albumin/glob ulin mass ratioOrdered By: Edward Bernstein on 08-10-2022 Albumin/Globulin [Mass ratio] 1.2 {ratio} [facility] Serum or plasma alkaline sondra sphatase measurement (enzymatic activity/volume)Ordered By: Edward Bernstein on 08-10-2022 ALP [Catalytic activity/Vol] 52 U/L 32-92 [facility] Serum or plasma aspartate am inotransferase measurement (enzymatic activity/volume)Ordered By: Edward Bernstein on 08-10-2022 AST [Catalytic activity/Vol] 16 U/L 10-42 [facility] Serum or plasma total biliru bin measurement (mass/volume)Ordered By: Edward Bernstein on 08-10-2022 Bilirubin [Mass/Vol] 0.5 mg/dL 0.3-1.2 [facility] Specific gravity Auto test s trip (U) [Rel density]Ordered By: Edward Bernstein on 08-10-2022 Specific gravity (U) [Rel density] 1.014 1.001-1.03 0 [facility] Troponin I.cardiac [Mass/vol ume] in Serum or Plasma by High sensitivity methodOrdered By: Edward Bernstein on 08-10-2022 Troponin I.cardiac High sensitivity method [Mass/Vol] 9 pg/mL 0-15 [facility] Urine clarity by refractomet ry automatedOrdered By: Edward Bernstein on 08-10-2022 Clarity Refractometry automated (U) Clear Clear [facility] Urine glucose measurement by automated test strip (mass/volume)Ordered By: Edward Bernstein on 08-10-2022 Glucose Auto test strip (U) [Mass/Vol] Normal mg/dL Normal [facility] Urine hemoglobin detection b y automated test stripOrdered By: Edward Bernstein on 08-10-2022 Hemoglobin Auto test strip Ql (U) Negative Negative [facility] [facility] leukocyte esterase det ection by automated test stripOrdered By: Edward Bernstein on 08-10-2022 Leukocyte esterase Auto test strip Ql (U) Negative Negative [facility] Urobilinogen Auto test strip (U) [Mass/Vol]Ordered By: Edward Bernstein on 08-10-2022 Urobilinogen (U) [Mass/Vol] Normal mg/dL Normal [facility] pH Auto test strip (U)Ordere d By: Edward Bernstein on 08-10-2022 pH (U) 5.5 [pH] 5.0-9.0 [facility] MRI Brain w/oon 09-20-2021 MRI Brain [...] by MATTHEW TRIPLETT on 09/21/2021 1240 Normal [facility] [employer] LYME DISEASE, WESTERN BLOTon 08-26-2021 IgG P18 Ab. Absent Normal [facility] Comment on above: Performed By: #### L YMWB #### [facility] [address] [address] [address] Christian Lebron IgG P23 Ab. Absent Normal [facility] Comment on above: Performed By: #### L YMWB #### [facility] [address] [place] [address] Dr. Christian Lebron IgG P28 Ab. Absent [facility] Comment on above: Performed By: #### L YMWB #### [facility] [address] [place] [address] Dr. Christian Lebron IgG P30 Ab. Absent [facility] Comment on above: Performed By: #### L YMWB #### [facility] [address] [place] [address] Dr. Christian Lebron IgG P39 Ab. Absent [facility] Comment on above: Performed By: #### L YMWB #### [facility] [address] [place] [address] Dr. Christian Lebron IgG P41 Ab. Absent [facility] Comment on above: Performed By: #### L YMWB #### [facility] [address] [place] [address] Dr. Christian Lebron IgG P45 Ab. Absent [facility] Comment on above: Performed By: #### L YMWB #### [facility] [address] [place] [address] Dr. Christian Lebron IgG P58 Ab. Absent [facility] Comment on above: Performed By: #### L YMWB #### [facility] [address] [place] [address] Dr. Christian Lebron IgG P66 Ab. Absent [facility] Comment on above: Performed By: #### L YMWB #### [facility] [address] [place] [address] Dr. Christian Lebron IgG P93 Ab. Absent [facility] Comment on above: Performed By: #### L YMWB #### [facility] [address] [place] [address] Dr. Christian Lebron IgM P23 Ab. Absent [facility] Comment on above: Performed By: #### L YMWB #### [facility] [address] [place] [address] Dr. Christian Lebron IgM P39 Ab. Absent Normal [facility] Comment on above: Performed By: #### L YMWB #### [facility] [address] [place] [address] Dr. Christian Lebron IgM P41 Ab. Absent [facility] Comment on above: Performed By: #### L YMWB #### [facility] [address] [place] [address] Dr. Christian Lebron Lyme IgG WB Interp. Negative [facility] Comment on above: Result Comment: Posi tive: 5 of the following Borrelia-specific bands: 18,23,28,30,39,41,45,58, 66, and 93. Negative: No bands or banding patterns which do not meet positive criteria. Performed By: #### L YMWB #### [facility] [address] [place] [address] Dr. Christian Lebron Lyme IgM WB Interp. Negative [facility] Comment on above: Result Comment: Note [...] are those recommended by CDC/ASTPHLD. p23=Osp C, t47=cpelguxmn . Note: Sera from individuals with the following may cross react in the Lyme Line Blot assays: other spirochetal diseases (periodontal disease, leptospirosis, relapsing fever, yaws, and pinta); connective autoimmune (Rheumatoid Arthritis and Systemic Lupus Erythematosus and also individuals with Antinuclear Antibody); other infections ([place] Spotted Fever; Roel-Briones Virus, and Cytomegalovirus). . Performed By: #### L YMWB #### [facility] [address] [address] [address] Christian Lebron METHYLMALONIC ACID (MMA)on 10-26-2020 Disclaimer: Comment Normal [facility] Comment on above: Result Comment: This test was developed and its performance characteristics determined by [employer]. It has not been cleared or approved by the Food and Drug Administration. Performed By: #### M MA2 #### [facility] [address] [place] [address] Dr. Christian Lebron Methylmalonic Acid, Serum 255 nmol/L Normal 0-[address] [facility] Comment on above: Performed By: #### M MA2 #### [facility] [address] [place] [address] Dr. Christian Lebron HOMOCYSTEINEon 08-25-2021 Homocyst(e)ine, Plasma 29.7 umol/L Critically high 0.0-21. 3 [facility] Comment on above: Result Comment: Spec imen quantity insufficient for verification by repeat analysis. Performed By: #### H OMCY #### [facility] [address] [place] [address] Dr. Christian Lebron RPR QUANTon 08-24-2021 Rapid Plasma Reagin, Quant Non-Reactive Normal NonRea<1:1 [facility] Comment on above: Performed By: #### R PRQ #### [facility] [address] [place] [address] Dr. Christian Lebron AMMONIAon 2021 Ammonia (P) [Moles/Vol] 9 umol/L Critically low 10-[address] [facility] Comment on above: Performed By: #### M MA2 #### [facility] [address] [place] [address] Dr. Christian Lebron CRPon 2021 CRP [Mass/Vol] mg/L Normal <=1.0 [facility] Comment on above: Performed By: #### M MA2 #### [facility] [address] [place] [address] Dr. Christian Lebron FOLATEon 2021 FOLATE 4.50 ng/mL Normal >=2.[address] [facility] Comment on above: Performed By: #### F T4, VITB12, FOL #### [facility] [address] [place] [address] Dr. Christian Lebron FREE T4on 2021 Free T4 [Mass/Vol] 0.98 ng/dL Normal 0.78-2.[address] [facility] Comment on above: Performed By: #### F T4, VITB12, FOL #### [facility] [address] [place] [address] Dr. Christian Lebron LIVER PROFILEon 2021 Albumin [Mass/Vol] 3.6 g/dL Normal 3.5-5.0 [facility] Comment on above: Performed By: #### M MA2 #### [facility] [address] [place] [address] Dr. Christian Lebron Albumin/Globulin [Mass ratio] 1.0 {ratio} Normal [facility] Comment on above: Performed By: #### M MA2 #### [facility] [address] [place] [address] Dr. Christian Lebron ALP [Catalytic activity/Vol] 96 U/L Normal 38-[address] [facility] Comment on above: Performed By: #### M MA2 #### [facility] [address] [place] [address] Dr. Christian Lebron ALT [Catalytic activity/Vol] 14 U/L Normal 9-[address] [facility] Comment on above: Performed By: #### M MA2 #### [facility] [address] [place] [address] Dr. Christian Lebron AST [Catalytic activity/Vol] 17 U/L Normal 14-[address] [facility] Comment on above: Performed By: #### M MA2 #### [facility] [address] [place] [address] Dr. Christian Lebron BILI, CONJUGATED 0.1 mg/dL Normal 0.0-0.[address] [facility] Comment on above: Performed By: #### M MA2 #### [facility] [address] [place] [address] Dr. Christian Lebron Bilirubin [Mass/Vol] 0.3 mg/dL Normal 0.2-1.[address] [facility] Comment on above: Performed By: #### M MA2 #### [facility] [address] [place] [address] Dr. Christian Lebron Globulin (S) [Mass/Vol] 3.7 g/dL Normal [facility] Comment on above: Performed By: #### M MA2 #### [facility] [address] [place] [address] Dr. Christian Lebron Protein [Mass/Vol] 7.3 g/dL Normal 6.1-8.[address] [facility] Comment on above: Performed By: #### M MA2 #### [facility] [address] [place] [address] Dr. Christian Lebron [facility] mm/hr Critically high <=30 [facility] Comment on above: Performed By: #### H OMCY #### [facility] [address] [place] [address] Dr. Christian Lebron TSHon 2021 TSH 3.087 uIU/mL Normal 0.470-4.68 0 [facility] Comment on above: Performed By: #### M MA2 #### [facility] [address] [place] [address] Dr. Christian Lebron TSH RANGE SEE BELOW Normal [facility] Comment on above: Result Comment: <0.3 4 UIU/ml HYPERTHYROID 0.34-5.60 UIU/ml EUTHYROID >5.60 UIU/ml HYPOTHYROID Performed By: #### M MA2 #### [facility] [address] [place] [address] Dr. Christian Lebron VITAMIN B12on 2021 Cobalamin (Vitamin B12) [Mass/Vol] 521.0 pg/mL Normal 239.0-931. 0 [facility] Comment on above: Performed By: #### F T4, VITB12, FOL #### [facility] [address] [place] [address] Dr. Christian Lebron XR DEXA BONE DENSITYon [...] OMAR SOTELO Date: 2021-07-10 14:[address] [facility] CBC AUTO DIFFon 02-02-2021 BASO # 0.1 103/ul Normal 0.0-0.1 [facility] Comment on above: Performed By: #### C BC #### [facility] [address] [place], [place] [id number] Lauri Pily Basophils/100 WBC (Bld) 0.4 % Normal 0.2-2.0 [facility] Comment on above: Performed By: #### C BC #### [facility] [address] [place], [place] [id number] Lauri Pily EO # 0.1 103/ul Normal 0.0-0.[address] [facility] Comment on above: Performed By: #### C BC #### [facility] [address] [place], [place] [id number] Lauri Pily Eosinophils/100 WBC (Bld) 0.9 % Normal 0.9-7.[address] [facility] Comment on above: Performed By: #### C BC #### [facility] [address] [place] [address] Lauri Pily Erythrocyte distribution width (RBC) [Ratio] 14.2 % Normal 11.0-15.[address] [facility] Comment on above: Performed By: #### C BC #### [facility] [address] [place] [address] Laurilaura Nascimento Hematocrit (Bld) [Volume fraction] 40.8 % Normal 36.0-48.0 [facility] Comment on above: Performed By: #### C BC #### [facility] [address] [place], [place] [id number] Laurilaura Nascimento Hemoglobin (Bld) [Mass/Vol] 13.1 g/dL Normal 12.0-16.[address] [facility] Comment on above: Performed By: #### C BC #### [facility] [address] [place] [address] Laurilaura Nascimento IG # 0.06 10e3/ul Critically high 0.00-0.03 [facility] Comment on above: Performed By: #### C BC #### [facility] [address] [place] [address] Laurilaura Nascimento IG % 0.5 % Normal 0.0-0.5 [facility] Comment on above: Performed By: #### C BC #### [facility] [address] [place] [address] Laurilaura Nascimento LYMPH # 2.4 103/ul Normal 1.2-3.8 [facility] Comment on above: Performed By: #### C BC #### [facility] [address] [place] [address] Lauri Nascimento Lymphocytes/100 WBC (Bld) 20.7 % Normal 20.5-60.[address] [facility] Comment on above: Performed By: #### C BC #### [facility] [address] [place] [address] Lauri Nascimento MANUAL DIFF REQ NO Normal [facility] Comment on above: Performed By: #### C BC #### [facility] [address] [place], [place] [id number] Lauri Nascimento MCH (RBC) [Entitic mass] 28.5 pg Normal 26.7-34.0 [facility] Comment on above: Performed By: #### C BC #### [facility] [address] [place], [place] [address] Laurilaura Nascimento MCHC (RBC) [Mass/Vol] 32.1 g/dL Normal 29.9-35.[address] [facility] Comment on above: Performed By: #### C BC #### [facility] [address] [place], [place] [address] Laurilaura Nascimento MCV (RBC) [Entitic vol] 88.9 fL Normal 81.0-99.[address] [facility] Comment on above: Performed By: #### C BC #### [facility] [address] [place], [place] [address] Lauri Pily MONO # 0.9 103/ul Critically high 0.3-0.[address] [facility] Comment on above: Performed By: #### C BC #### [facility] [address] [id number] Lauri Pily Monocytes/100 WBC (Bld) 7.7 % Normal 1.7-12.[address] [facility] Comment on above: Performed By: #### C BC #### [facility] [address] [id number] Lauri Pily NEUT # 8.1 103/ul Critically high 1.4-6.[address] [facility] Comment on above: Performed By: #### C BC #### [facility] [address] [place], [place] [id number] Lauri Pily Neutrophils/100 WBC (Bld) 69.8 % Normal 43.0-75.[address] [facility] Comment on above: Performed By: #### C BC #### [facility] [address] [id number] Lauri Pily Platelet mean volume (Bld) [Entitic vol] 11.9 fL Normal 9.5-13.[address] [facility] Comment on above: Performed By: #### C BC #### [facility] [address] [id number] Lauri Pily PLT 197 103/ul Normal 150-[address] [facility] Comment on above: Performed By: #### C BC #### [facility] [address] [id number] Lauri Pily RBC 4.59 106/ul Normal 4.20-5.40 [facility] Comment on above: Performed By: #### C BC #### [facility] [address] [place] [address] Lauri Nascimento WBC 11.6 103/ul Critically high 4.0-11.0 [facility] Comment on above: Performed By: #### C BC #### [facility] [address] [place] [address] Lauri Nascimento PROF CHEM 8 (BAS METB)on Anion gap [Moles/Vol] 12.7 mmol/L Normal [facility] Comment on above: Performed By: #### H OMCY #### [facility] [address] [place] [address] Dr. Christian Lebron Calcium [Mass/Vol] 9.1 mg/dL Normal 8.4-10.2 [facility] Comment on above: Performed By: #### H OMCY #### [facility] [address] [place] [address] Dr. Christian Lebron Chloride [Moles/Vol] 110 mmol/L Critically high 98-107 [facility] Comment on above: Performed By: #### H OMCY #### [facility] [address] [place] [address] Dr. Christian Lebron CO2 [Moles/Vol] 21.7 mmol/L Critically low 22.0-30.0 [facility] Comment on above: Performed By: #### H OMCY #### [facility] [address] [place] [address] Dr. Christian Lebron Creatinine [Mass/Vol] 1.25 mg/dL Critically high 0.52-1.04 [facility] Comment on above: Performed By: #### H OMCY #### [facility] [address] [place] [address] Dr. Christian Lebron EGFR-AF ALBANIAN 50 mL/min/1.73m2 Critically low >=60 [facility] Comment on above: Performed By: #### H OMCY #### [facility] [address] [place], [place] [address] Dr. Christian Lebron EGFR-NON AF ALBANIAN 41 mL/min/1.73m2 Critically low >=60 [facility] Comment on above: Performed By: #### H OMCY #### [facility] [address] [address] [address] Christian Lebron Glucose [Mass/Vol] 117 mg/dL Critically high 74-106 [facility] Comment on above: Performed By: #### H OMCY #### [facility] [address] [address] [address] Christian Lebron Potassium [Moles/Vol] 3.4 mmol/L Normal 3.4-5.0 [facility] Comment on above: Performed By: #### H OMCY #### [facility] [address] [address] [address] Christian Lebron Sodium [Moles/Vol] 141 mmol/L Normal 137-145 [facility] Comment on above: Performed By: #### H OMCY #### [facility] [address] [place] [address] Dr. Christian Lebron Urea nitrogen [Mass/Vol] 28.0 mg/dL Critically high 7.0-17.0 [facility] Comment on above: Performed By: #### H OMCY #### [facility] [address] [place] [address] Dr. Christian Lebron Urea nitrogen/Creatinine [Mass ratio] 22.4 mg/mg Normal [facility] Comment on above: Performed By: #### H OMCY #### [facility] [address] [address] [address] Christian Lebron CBC AUTO DIFFon 02-01-2021 BASO # 0.1 103/ul Normal 0.0-0.1 [facility] Comment on above: Performed By: #### M MA2 #### [facility] [address] [place] [address] Dr. Christian Lebron Basophils/100 WBC (Bld) 0.5 % Normal 0.2-2.0 [facility] Comment on above: Performed By: #### M MA2 #### [facility] [address] [address] [address] Christian Lebron EO # 0.1 103/ul Normal 0.0-0.[address] [facility] Comment on above: Performed By: #### M MA2 #### [facility] [address] [place] [address] Dr. Christian Lebron Eosinophils/100 WBC (Bld) 1.0 % Normal 0.9-7.[address] [facility] Comment on above: Performed By: #### Khadar HORNE2 #### [facility] [address] [place] [address] Dr. Christian Lebron Erythrocyte distribution width (RBC) [Ratio] 13.9 % Normal 11.0-15.0 [facility] Comment on above: Performed By: #### Khadar HORNE2 #### [facility] [address] [place] [address] Dr. Christian Lebron Hematocrit (Bld) [Volume fraction] 38.7 % Normal 36.0-48.0 [facility] Comment on above: Performed By: #### Khadar HORNE2 #### [facility] [address] [place] [address] Dr. Christian Lebron Hemoglobin (Bld) [Mass/Vol] 12.3 g/dL Normal 12.0-16.0 [facility] Comment on above: Performed By: #### Khadar HORNE2 #### [facility] [address] [place] [address] Dr. Christian Lebron IG # 0.04 10e3/ul Critically high 0.00-0.03 [facility] Comment on above: Performed By: #### Khadar HORNE2 #### [facility] [address] [place] [address] Dr. Christian Lebron IG % 0.4 % Normal 0.0-0.[address] [facility] Comment on above: Performed By: #### M MA2 #### [facility] [address] [place] [address] Dr. Christian Lebron LYMPH # 2.0 103/ul Normal 1.2-3.[address] [facility] Comment on above: Performed By: #### Khadar HORNE2 #### [facility] [address] [place] [address] Dr. Christian Lebron Lymphocytes/100 WBC (Bld) 22.0 % Normal 20.5-60.0 [facility] Comment on above: Performed By: #### M MA2 #### [facility] [address] [place] [address] Dr. Christian Lebron MANUAL DIFF REQ NO Normal [facility] Comment on above: Performed By: #### M OZZIE2 #### [facility] [address] [place] [address] Dr. Christian Lebron MCH (RBC) [Entitic mass] 29.0 pg Normal 26.7-34.[address] [facility] Comment on above: Performed By: #### Khadar HORNE2 #### [facility] [address] [place] [address] Dr. Christian Lebron MCHC (RBC) [Mass/Vol] 31.8 g/dL Normal 29.9-35.[address] [facility] Comment on above: Performed By: #### Khadar HORNE2 #### [facility] [address] [place] [address] Dr. Christian Lebron MCV (RBC) [Entitic vol] 91.3 fL Normal 81.0-99.[address] [facility] Comment on above: Performed By: #### Khadar HORNE2 #### [facility] [address] [place] [address] Dr. Christian Lebron MONO # 0.8 103/ul Normal 0.3-0.[address] [facility] Comment on above: Performed By: #### Khadar HORNE2 #### [facility] [address] [place] [address] Dr. Christian Lebron Monocytes/100 WBC (Bld) 8.7 % Normal 1.7-12.[address] [facility] Comment on above: Performed By: #### M OZZIE2 #### [facility] [address] [place] [address] Dr. Christian Lebron NEUT # 6.2 103/ul Normal 1.4-6.[address] [facility] Comment on above: Performed By: #### Khadar HORNE2 #### [facility] [address] [address] [address] Christian Lebron Neutrophils/100 WBC (Bld) 67.4 % Normal 43.0-75.[address] [facility] Comment on above: Performed By: #### M MA2 #### [facility] [address] [address] [address] Christian Lebron Platelet mean volume (Bld) [Entitic vol] 11.9 fL Normal 9.5-13.[address] [facility] Comment on above: Performed By: #### M MA2 #### [facility] [address] [address] [address] Christian Lebron PLT 175 103/ul Normal 150-[address] [facility] Comment on above: Performed By: #### M MA2 #### [facility] [address] [place] [address] Dr. Christian Lebron RBC 4.24 106/ul Normal 4.20-5.[address] [facility] Comment on above: Performed By: #### M MA2 #### [facility] [address] [address] [address] Christian Lebron WBC 9.1 103/ul Normal 4.0-11.[address] [facility] Comment on above: Performed By: #### M MA2 #### [facility] [address] [place] [address] HEAD WO CONon [...] by: YAQUELIN ANSARI Date: 2021-01-31 22:45 Normal [facility] ECHO LIMITED STUDYon 021 ECHO LIMITED STUDY Patient: CARLEY QUINTANILLA Exam Date: 02/01/2021 : 1940 Gender:F Ordering : DR. LULU FRIEDMAN . Admission #: [id number] Family : DR KALI MAHARAJ M.D. Order #: [id number] CLICK HERE TO VIEW EXAM ECHOCARDIOGRAM REPORT [...] Area(A4C): 15.60 cm2 Left Atrium Systolic Volume(A2C): 25793 mm3 Left Atrium Systolic Volume(A4C): 40201 mm3 Mitral Valve Right Ventricle Aorta AO Root Diam: 3.10 cm Aortic Valve Tricuspid Valve Pulmonic Valve Right Atrium Dictated by: Max Carbone M.D. on 02/01/2021 at 13:45 Approved by: Max Carbone M.D. on 02/01/2021 at 13:[address] [facility] ER URINE PROFILEon 1 Bilirubin Ql (U) Negative Normal NEGATIVE [facility] Comment on above: Performed By: #### E RUR #### [facility] [address] [place] [address] Lauri Pily Clarity (U) CLEAR Normal CLEAR [facility] Comment on above: Performed By: #### E RUR #### [facility] [address] [place] [address] Lauri Pily Color (U) LT. YELLOW Normal YELLOW [facility] Comment on above: Performed By: #### E RUR #### [facility] [address] [place] [address] Lauri Pily ERUAHD A micrscopic examina tion will be performed if indicated. Normal [facility] Comment on above: Performed By: #### E RUR #### [facility] [address] [place] [address] Lauri Pily Glucose Ql (U) Negative Normal NEGATIVE [facility] Comment on above: Performed By: #### E RUR #### [facility] [address] [place] [address] Lauri Pily Hemoglobin Ql (U) Negative Normal NEGATIVE [facility] Comment on above: Performed By: #### E RUR #### [facility] [address] [place] [address] Lauri Pily Ketones Ql (U) TRACE Abnormal NEGATIVE [facility] Comment on above: Performed By: #### E RUR #### [facility] [address] [place] [address] Lauri Nascimento LEUKOCYTES Negative Normal NEGATIVE [facility] Comment on above: Performed By: #### E RUR #### [facility] [address] [place], [place] [id number] Laurilaura Nascimento Nitrite Ql (U) Negative Normal NEGATIVE [facility] Comment on above: Performed By: #### E RUR #### [facility] [address] [place] [address] Lauri Nascimento pH (U) 5.0 [pH] Normal 5-9 [facility] Comment on above: Performed By: #### E RUR #### [facility] [address] [place] [address] Lauri Nascimento SPEC GRAVITY 1.025 Normal 1.005-<=1. 025 [facility] Comment on above: Performed By: #### E RUR #### [facility] [address] [place] [address] Lauri Nascimento UA PROTEIN TRACE Normal NEGATIVE/ TRACE [facility] Comment on above: Performed By: #### E RUR #### [facility] [address] [place] [address] Lauri Nascimento UR MICRO IND NOT INDICATED Normal [facility] Comment on above: Performed By: #### E RUR #### [facility] [address] [place] [address] Lauri Nascimento Urobilinogen Qn (U) 0.2 {Irineo'U}/dL Normal 0.2 - 1. 0 [facility] Comment on above: Performed By: #### E RUR #### [facility] [address] [place] [address] Lauri Nascimento PROF CHEM 8 (BAS METB)on Anion gap [Moles/Vol] 15.6 mmol/L Normal Th [facility] Comment on above: Performed By: #### M MA2 #### [facility] [address] [address] [address] Christian Lebron Calcium [Mass/Vol] 8.8 mg/dL Normal 8.4-10.[address] [facility] Comment on above: Performed By: #### M MA2 #### [facility] [address] [address] [address] Christian Lebron Chloride [Moles/Vol] 109 mmol/L Critically high 98-107 [facility] Comment on above: Performed By: #### M MA2 #### [facility] [address] [address] [address] Christian Lebron CO2 [Moles/Vol] 23.1 mmol/L Normal 22.0-30.0 [facility] Comment on above: Performed By: #### M MA2 #### [facility] [address] [address] [address] Christian Lebron Creatinine [Mass/Vol] 1.49 mg/dL Critically high 0.52-1.04 [facility] Comment on above: Performed By: #### M MA2 #### [facility] [address] [address] [address] Christian Lebron EGFR-AF ALBANIAN 41 mL/min/1.73m2 Critically low >=[address] [facility] Comment on above: Performed By: #### M MA2 #### [facility] [address] [address] [address] Christian Lebron EGFR-NON AF ALBANIAN 34 mL/min/1.73m2 Critically low >=[address] [facility] Comment on above: Performed By: #### M MA2 #### [facility] [address] [address] [address] Christian Lebron Glucose [Mass/Vol] 114 mg/dL Critically high 74-106 [facility] Comment on above: Performed By: #### M MA2 #### [facility] [address] [address] [address] Christian Lebron Potassium [Moles/Vol] 3.7 mmol/L Normal 3.4-5.0 [facility] Comment on above: Performed By: #### M MA2 #### [facility] [address] [address] [address] Christian Lebron Sodium [Moles/Vol] 144 mmol/L Normal 137-[address] [facility] Comment on above: Performed By: #### M MA2 #### [facility] [address] [place] [address] Dr. Christian Lebron Urea nitrogen [Mass/Vol] 28.0 mg/dL Critically high 7.0-17.[address] [facility] Comment on above: Performed By: #### M MA2 #### [facility] [address] [address] [address] Christian Lebron Urea nitrogen/Creatinine [Mass ratio] 18.8 mg/mg Normal [facility] Comment on above: Performed By: #### M MA2 #### [facility] [address] [place] [address] Dr. Christian Lebron Rapid Covid-19 PCR (CVDRPD)o n 02-01-2021 SARS-CoV-2 (COVID-19) RNA ALLISON+probe Ql (Unsp spec) Not detected Normal NOT DETECTED [facility] Comment on above: Result Comment: This test is not yet approved or cleared by the [place] Food and Drug Administration (FDA). This test was developed by [employer], [place], [place]. The performance characteristics of this test were validated by The [facility]. The results are not intended to be used as the sole means for clinical diagnosis or patient management decisions. The [facility] is authorized under Clinical Laboratory Improvement Amendments (CLIA) to perform high- complexity testing. When diagnostic testing is negative, the possibility of a false negative should be considered in the context of a patient's recent exposures and the presence of clinical signs and symptoms consistent with SARS-CoV-2. Performed By: #### H OMCY #### [facility] [address] [place] [address] Dr. Christian Lebron TROPONIN, HIGH SENSITIVITYon 02-01-2021 HSTROP 15.4 pg/mL Normal 4.0-35.[address] [facility] Comment on above: Result Comment: CUT- OFF POINTS HAVE BEEN ESTABLISHED BASED ON THE FOURTH UNIVERSAL DEFINITIONS OF MYOCARDIAL INFARCTION. THE UPPER REFERENCE LIMIT (URL) OF TROPONIN, DEFINED THE 99TH PERCENTILE OF cTnI DISTRIBUTION IN A REFERENCE POPULATION, HAS BEEN CONFIRMED THE DECISION THRESHOLD FOR AR DIAGNOSIS. Performed By: #### H STROPN #### [facility] [address] [place], [place] [id number] Lauri Nascimento XR CHEST 2 Von 02-01-2021 [...] by: YAQUELIN ANSARI Date: 2021-01-31 22:40 Normal [facility] XR PELVIS 1_2 VIEWSon 2020 XR [...] YAQUELIN ANSARI Date: 2021-01-31 22:[address] [facility] BNPon 01-31-2021 Natriuretic peptide B (Bld) [Mass/Vol] 1162.0 pg/mL Normal <=1,800.0 [facility] Comment on above: Performed By: #### H OMCY #### [facility] [address] [place] [address] Dr. Christian Lebron CBC AUTO DIFFon 01-31-2021 BASO # 0.0 103/ul Normal 0.0-0.1 [facility] Comment on above: Performed By: #### E RUR #### [facility] [address] [place] [address] Lauri Nascimento Basophils/100 WBC (Bld) 0.4 % Normal 0.2-2.0 [facility] Comment on above: Performed By: #### E RUR #### [facility] [address] [place] [address] Lauri Pily EO # 0.1 103/ul Normal 0.0-0.[address] [facility] Comment on above: Performed By: #### E RUR #### [facility] [address] [place], [place] [id number] Lauri Pily Eosinophils/100 WBC (Bld) 0.9 % Normal 0.9-7.0 [facility] Comment on above: Performed By: #### E RUR #### [facility] [address] [place] [address] Lauri Pily Erythrocyte distribution width (RBC) [Ratio] 13.8 % Normal 11.0-15.[address] [facility] Comment on above: Performed By: #### E RUR #### [facility] [address] [place] [address] Lauri Pily Hematocrit (Bld) [Volume fraction] 42.8 % Normal 36.0-48.0 [facility] Comment on above: Performed By: #### E RUR #### [facility] [address] [place] [address] Lauri Pily Hemoglobin (Bld) [Mass/Vol] 13.8 g/dL Normal 12.0-16.[address] [facility] Comment on above: Performed By: #### E RUR #### [facility] [address] [place] [address] Lauri Pily IG # 0.04 10e3/ul Critically high 0.00-0.[address] [facility] Comment on above: Performed By: #### E RUR #### [facility] [address] [place] [address] Lauri Pily IG % 0.4 % Normal 0.0-0.[address] [facility] Comment on above: Performed By: #### E RUR #### [facility] [address] [place], [place] [id number] Lauri Pily LYMPH # 2.3 103/ul Normal 1.2-3.[address] [facility] Comment on above: Performed By: #### E RUR #### [facility] [address] [place], [place] [id number] Lauri Pily Lymphocytes/100 WBC (Bld) 21.7 % Normal 20.5-60.0 [facility] Comment on above: Performed By: #### E RUR #### [facility] [address] [place], [place] [id number] Lauri Nascimento MANUAL DIFF REQ NO Normal [facility] Comment on above: Performed By: #### E RUR #### [facility] [address] [place], [place] [id number] Lauri Nascimento MCH (RBC) [Entitic mass] 28.9 pg Normal 26.7-34.0 [facility] Comment on above: Performed By: #### E RUR #### [facility] [address] [place] [address] Lauri Nascimento MCHC (RBC) [Mass/Vol] 32.2 g/dL Normal 29.9-35.2 [facility] Comment on above: Performed By: #### E RUR #### [facility] [address] [place] [address] Lauri Nascimento MCV (RBC) [Entitic vol] 89.7 fL Normal 81.0-99.0 [facility] Comment on above: Performed By: #### E RUR #### [facility] [address] [place], [place] [id number] Lauri Nascimento MONO # 0.9 103/ul Critically high 0.3-0.8 [facility] Comment on above: Performed By: #### E RUR #### [facility] [address] [place] [address] Lauri Nascimento Monocytes/100 WBC (Bld) 8.0 % Normal 1.7-12.0 [facility] Comment on above: Performed By: #### E RUR #### [facility] [address] [place], [place] [id number] Laurilaura Nascimento NEUT # 7.4 103/ul Critically high 1.4-6.5 [facility] Comment on above: Performed By: #### E RUR #### [facility] [address] [place], [place] [id number] Lauri Nascimento Neutrophils/100 WBC (Bld) 68.6 % Normal 43.0-75.0 [facility] Comment on above: Performed By: #### E RUR #### [facility] [address] [place] [address] Lauri Nascimento Platelet mean volume (Bld) [Entitic vol] 11.8 fL Normal 9.5-13.5 [facility] Comment on above: Performed By: #### E RUR #### [facility] [address] [place] [address] Lauri Nascimento PLT 190 103/ul Normal 150-[address] [facility] Comment on above: Performed By: #### E RUR #### [facility] [address] [place] [address] Lauri Nascimento RBC 4.77 106/ul Normal 4.20-5.40 [facility] Comment on above: Performed By: #### E RUR #### [facility] [address] [place] [address] Lauri Nascimento WBC 10.8 103/ul Normal 4.0-11.0 [facility] Comment on above: Performed By: #### E RUR #### [facility] [address] [place] [address] Lauri Gavinen PROF 14(COMP METB)on 021 Albumin [Mass/Vol] 3.6 g/dL Normal 3.5-5.0 [facility] Comment on above: Performed By: #### H OMCY #### [facility] [address] [place] [address] Dr. Christian Lebron Albumin/Globulin [Mass ratio] 1.0 {ratio} Normal [facility] Comment on above: Performed By: #### H OMCY #### [facility] [address] [place] [address] Dr. Christian Lebron ALP [Catalytic activity/Vol] 74 U/L Normal 38-[address] [facility] Comment on above: Performed By: #### H OMCY #### [facility] [address] [place] [address] Dr. Christian Lebron ALT [Catalytic activity/Vol] 19 U/L Normal 9-[address] [facility] Comment on above: Performed By: #### H OMCY #### [facility] [address] [address] [address] Christian Lebron Anion gap [Moles/Vol] 11.7 mmol/L Normal Th [facility] Comment on above: Performed By: #### H OMCY #### [facility] [address] [address] [address] Christian Lebron AST [Catalytic activity/Vol] 16 U/L Normal 14-36 [facility] Comment on above: Performed By: #### H OMCY #### [facility] [address] [address] [address] Christian Lebron Bilirubin [Mass/Vol] 0.4 mg/dL Normal 0.2-1.[address] [facility] Comment on above: Performed By: #### H OMCY #### [facility] [address] [address] [address] Christian Lebron Calcium [Mass/Vol] 9.3 mg/dL Normal 8.4-10.2 [facility] Comment on above: Performed By: #### H OMCY #### [facility] [address] [address] [address] Christian Lebron Chloride [Moles/Vol] 107 mmol/L Normal 98-107 [facility] Comment on above: Performed By: #### H OMCY #### [facility] [address] [address] [address] Christian Lebron CO2 [Moles/Vol] 26.0 mmol/L Normal 22.0-30.[address] [facility] Comment on above: Performed By: #### H OMCY #### [facility] [address] [address] [address] Christian Lebron Creatinine [Mass/Vol] 1.63 mg/dL Critically high 0.52-1.04 [facility] Comment on above: Performed By: #### H OMCY #### [facility] [address] [address] [address] Christian Lebron EGFR-AF ALBANIAN 37 mL/min/1.73m2 Critically low >=[address] [facility] Comment on above: Performed By: #### H OMCY #### [facility] [address] [address] [address] Christian Lebron EGFR-NON AF ALBANIAN 30 mL/min/1.73m2 Critically low >=60 [facility] Comment on above: Performed By: #### H OMCY #### [facility] [address] [address] [address] Christian Lebron Globulin (S) [Mass/Vol] 3.7 g/dL Normal [facility] Comment on above: Performed By: #### H OMCY #### [facility] [address] [address] [address] Christian Lebron Glucose [Mass/Vol] 96 mg/dL Normal 74-106 [facility] Comment on above: Performed By: #### H OMCY #### [facility] [address] [address] [address] Christian Lebron Potassium [Moles/Vol] 3.7 mmol/L Normal 3.4-5.0 [facility] Comment on above: Performed By: #### H OMCY #### [facility] [address] [address] [address] Christian Lebron Protein [Mass/Vol] 7.3 g/dL Normal 6.1-8.2 [facility] Comment on above: Performed By: #### H OMCY #### [facility] [address] [address] [address] Christian Lebron Sodium [Moles/Vol] 141 mmol/L Normal 137-[address] [facility] Comment on above: Performed By: #### H OMCY #### [facility] [address] [address] [address] Christian Lebron Urea nitrogen [Mass/Vol] 31.0 mg/dL Critically high 7.0-17.0 [facility] Comment on above: Performed By: #### H OMCY #### [facility] [address] [address] [address] Christian Lebron Urea nitrogen/Creatinine [Mass ratio] 19.0 mg/mg Normal [facility] Comment on above: Performed By: #### H OMCY #### [facility] [address] [place] [address] Dr. Christian Lebron PROTIMEon 01-31-2021 INR Coag (PPP) [Relative time] {INR} Normal [facility] Comment on above: Performed By: #### H OMCY #### [facility] [address] [place] [address] Dr. Christian Lebron INR GUIDELINES SEE BELOW Normal [facility] Comment on above: Result Comment: EVER RED INR: 2.0 - 3.0 CONDITIONS NOT LISTED BELOW 2.5 - 3.5 FOR PROSTHETIC HEART VALVE REPLACEMENT 2.5 - 3.5 RECURRENT THROMBOSIS Performed By: #### H OMCY #### [facility] [address] [place] [address] Dr. Christian Lebron PT Coag (PPP) [Time] 10.0 s Normal 9.0-11.6 [facility] Comment on above: Performed By: #### H OMCY #### [facility] [address] [place] [address] Dr. Christian Lebron PTTon 01-31-2021 aPTT Coag (Bld) [Time] 28.2 s Normal 22.3-36.2 Th [facility] Comment on above: Performed By: #### H OMCY #### [facility] [address] [place] [address] Dr. Christian Lebron TROPONIN, HIGH SENSITIVITYon 01-31-2021 HSTROP 15.5 pg/mL Normal 4.0-35.5 [facility] Comment on above: Result Comment: CUT- OFF POINTS HAVE BEEN ESTABLISHED BASED ON THE FOURTH UNIVERSAL DEFINITIONS OF MYOCARDIAL INFARCTION. THE UPPER REFERENCE LIMIT (URL) OF TROPONIN, DEFINED THE 99TH PERCENTILE OF cTnI DISTRIBUTION IN A REFERENCE POPULATION, HAS BEEN CONFIRMED THE DECISION THRESHOLD FOR AR DIAGNOSIS. Performed By: #### H OMCY #### [facility] [address] [place] [address] Dr. Christian Lebron TSHon 01-31-2021 TSH 3.025 uIU/mL Normal 0.470-4.68 0 [facility] Comment on above: Performed By: #### H OMCY #### [facility] [address] [place], [place] [address] Dr. Christian Lebron TSH RANGE SEE BELOW Normal [facility] Comment on above: Result Comment: <0.3 4 UIU/ml HYPERTHYROID 0.34-5.60 UIU/ml EUTHYROID >5.60 UIU/ml HYPOTHYROID Performed By: #### H OMCY #### [facility] [address] [address] [address] Christian Lebron Vital Signs Date Time Vital Sign Value Performing Clinician Facility 03-17-2024 11:21-0400 Body height 167.6 cm Abdulaziz Alvarez MD Work Phone: [facility] 03-17-2024 11:21-0400 Diastolic blood pressure 52 mm[Hg] Abdulaziz Alvarez MD Work Phone: [facility] 03-17-2024 11:21-0400 Heart rate 79 /min Abdulaziz Alvarez MD Work Phone: [facility] 03-17-2024 11:21-0400 Systolic blood pressure 130 mm[Hg] Abdulaziz Alvarez MD Work Phone: [facility] 11-14-2023 17:04-0500 Body height 162.6 cm Ismael Aquino DPM Work Phone: [facility] 11-14-2023 17:04-0500 Body mass index (BMI) [Ratio] 29.52 kg/m2 Ismael Auqino DPM Work Phone: [facility] 11-14-2023 17:04-0500 Body weight 78.02 kg Ismael Aquino DPM Work Phone: [facility] 11-14-2023 17:04-0500 Diastolic blood pressure 80 mm[Hg] Ismael Aquino DPM Work Phone: [facility] 11-14-2023 17:04-0500 Heart rate 77 /min Ismael Aquino DPM Work Phone: [facility] 11-14-2023 17:04-0500 Systolic blood pressure 123 mm[Hg] Ismael Aquino [facility] Work Phone: [facility] 09-26-2023 12:00-0500 Body height 167.64 cm Sergio Escudero Other [employer] Other 09-26-2023 12:00-0500 Body mass index (BMI) [Ratio] 25.01 kg/m2 Sergio Escudero Other [employer] Other 09-26-2023 12:00-0500 Body temperature 96.1 [degF] Sergio Escudero Other [employer] Other 09-26-2023 12:00-0500 Body weight 70.31 kg Sergio Escudero Other [employer] Other 09-26-2023 12:00-0500 Diastolic blood pressure 62 mm[Hg] Sergio Escudero Other [employer] Other 09-26-2023 12:00-0500 SaO2% (BldA) [Mass fraction] 99 % Sergio Escudero Other [employer] Other 09-26-2023 12:00-0500 Systolic blood pressure 120 mm[Hg] Sergio Escudero Other [employer] Other 03-20-2023 11:30-0400 Body height 167.64 cm Raysa Robins Other [employer] Other 03-20-2023 11:30-0400 Body mass index (BMI) [Ratio] 25.01 kg/m2 Raysa Robins Other [employer] Other 03-20-2023 11:30-0400 Body temperature 97.8 [degF] Raysa Robins Other [employer] Other 03-20-2023 11:30-0400 Body weight 70.31 kg Raysa Robins Other [employer] Other 03-20-2023 11:30-0400 Diastolic blood pressure 86 mm[Hg] Raysa Robins Other [employer] Other 03-20-2023 11:30-0400 SaO2% (BldA) [Mass fraction] 99 % Raysa Robins Other [employer] Other 03-20-2023 11:30-0400 Systolic blood pressure 122 mm[Hg] Raysa Robins Other [employer] Other 09-21-2022 12:15-0500 Body height 167.64 cm Abdulaziz Alvarez MD Work Phone: [facility] [employer] 250 DO Work Phone: 09-21-2022 12:15-0500 Body mass index (BMI) [Ratio] 24.05 kg/m2 Abdulaziz Alvarez MD Work Phone: [facility] 250 DO Work Phone: 09-21-2022 12:15-0500 Body surface area Derived from formula 1.76 m2 Abdulaziz Alvarez MD Work Phone: [facility] 250 DO Work Phone: 09-21-2022 12:15-0500 Body weight 67.59 kg Abdulaziz Alvarez MD Work Phone: [facility] 250 DO Work Phone: 09-21-2022 12:15-0500 Diastolic blood pressure 78 mm[Hg] Abdulaziz Alvarez MD Work Phone: [facility] 250 DO Work Phone: 09-21-2022 12:15-0500 Heart rate 84 /min Abdulaziz Alvarez MD Work Phone: [facility]Sh[employer]a 250 DO Work Phone: 09-21-2022 12:15-0500 Systolic blood pressure 126 mm[Hg] Abdulaziz Alvarez MD Work Phone: [facility] 250 DO Work Phone: 09-12-2022 11:45-0500 Body height 167.64 cm Sergio Escudero Other [employer] Other 09-12-2022 11:45-0500 Body mass index (BMI) [Ratio] 27.44 kg/m2 Sergio Escudero Other [employer] Other 09-12-2022 11:45-0500 Body temperature 97.8 [degF] Sergio Escudero Other [employer] Other 09-12-2022 11:45-0500 Body weight 77.11 kg Sergio Escudero Other [employer] Other 09-12-2022 11:45-0500 Diastolic blood pressure 68 mm[Hg] Sergio Escudero Other [employer] Other 09-12-2022 11:45-0500 SaO2% (BldA) [Mass fraction] 98 % Sergio Escudero Other [employer] Other 09-12-2022 11:45-0500 Systolic blood pressure 116 mm[Hg] Sergio Escudero Other [facility] [employer] Other 08-14-2022 12:47-0500 Diastolic blood pressure 71 mm[Hg] DO Edward Bernstein Work Phone: [facility] 08-14-2022 12:47-0500 Systolic blood pressure 177 mm[Hg] DO Edward Bernstein Work Phone: [facility] 08-14-2022 12:00-0500 Body temperature 98.3 [degF] DO Edward Bernstein Work Phone: [facility] 08-14-2022 12:00-0500 Heart rate 79 /min DO Edward Bernstein Work Phone: [facility] 08-14-2022 12:00-0500 Respiratory rate 16 /min DO Edward Bernstein Work Phone: [facility] 08-14-2022 12:00-0500 SaO2% (BldA) [Mass fraction] 98 % DO Edward Bernstein Work Phone: [facility] 08-14-2022 04:50-0500 Body weight 66.6 kg DO Edward Bernstein Work Phone: [facility] 08-13-2022 20:45-0500 Body temperature 97.8 [degF] DO Edward Bernstein Work Phone: [facility] 08-13-2022 20:45-0500 Diastolic blood pressure 68 mm[Hg] DO Edward Bernstein Work Phone: [facility] 08-13-2022 20:45-0500 Heart rate 80 /min DO Edward Bernstein Work Phone: [facility] 08-13-2022 20:45-0500 Respiratory rate 20 /min DO Edward Bernstein Work Phone: [facility] 08-13-2022 20:45-0500 SaO2% (BldA) [Mass fraction] 99 % DO Edward Bernstein Work Phone: [facility] 08-13-2022 20:45-0500 Systolic blood pressure 188 mm[Hg] DO Edward Bernstein Work Phone: [facility] 08-13-2022 11:50-0500 Body height 167.64 cm DO Edward Bernstein Work Phone: [facility] 08-13-2022 06:00-0500 Body weight 68.8 kg DO Edward Bernstein Work Phone: [facility] Encounters Encounter Date Encounter Type Care Provider Facility Start: 04-24-2024 End: 04-24-2024 ambulatory Adin Rivas [facility] Work Phone: Start: 04-24-2024 End: 04-24-2024 Departed Referred DO Adin Evelyn Work Phone: [facility] Start: 04-01-2024 End: 04-01-2024 ambulatory KALI Shruthi MAHARAJ Not Available Start: 03-23-2024 End: 03-23-2024 ambulatory ADIN RIVAS Not Available Start: 03-17-2024 End: 03-17-2024 ambulatory [facility] Start: 03-17-2024 End: 03-17-2024 Encounter for other preprocedural examination [facility] Start: 03-17-2024 End: 03-17-2024 Office outpatient visit 25 minutes Abdulaziz Alvarez MD Work Phone: [facility] Comment on above: Pre-op evaluation (P rimary Dx); Primary hypertension; Hyperlipidemia, unspecified hyperlipidemia type; Stenosis of carotid artery, unspecified laterality; Former smoker; [facility] resident; History of syncope Start: 03-17-2024 End: 03-17-2024 Preprocedural examination done Abdulaziz Alvarez MD Work Phone: [facility] Work Phone: Start: 03-13-2024 End: 03-13-2024 ambulatory PILY Rubalcava PARI Not Available Start: 01-29-2024 End: 01-29-2024 ambulatory KALI B NICOK Not Available Start: 01-21-2024 End: 01-21-2024 ambulatory [...] PODIATRY Start: 10-16-2023 End: 10-16-2023 ambulatory KALI B NICKO Not Available Start: 10-01-2023 End: 10-01-2023 ambulatory YULIA D BEJ Not Available Start: 09-26-2023 Office outpatient vi sit 15 minutes Sergio Escudero [facility] Surgery Start: 09-26-2023 End: 09-26-2023 Patient encounter procedure II Kali Maharaj Work Phone: [facility] Start: 09-26-2023 End: 09-26-2023 ambulatory II Kali Maharaj Work Phone: [facility] [employer] Other Start: 03-20-2023 End: 03-20-2023 Patient encounter procedure Raysa Robins [facility] V[facility] Surgery Start: 03-20-2023 End: 03-20-2023 ambulatory II Kali Maharaj Work Phone: [facility] [employer] Other Start: 03-13-2023 ambulatory Abdulaziz Alvarez Facility : Start: 11-10-2022 Chart Update Abdulaziz Alvarez MD Work Phone: [facility]-[place]ena 250 DO Work Phone: Start: 10-30-2022 Telephone encounter Abdulaziz day MD Work Phone: [facility]-[place] 600 DO Work Phone: Start: 10-22-2022 Patient encounter procedure Abdulaziz Alvarez MD Work Phone: [facility]-[place] 250 DO Work Phone: Start: 09-21-2022 ambulatory Abdulaziz Alvarez Facility :[id number] Start: 09-21-2022 Office outpatient vi sit 25 minutes Abdulaziz Alvarez MD Work Phone: [facility] Heart-Shaniqua 250 DO Work Phone: Start: 09-18-2022 Chart Update Abdulaziz Alvarez MD Work Phone: [facility]-[place] 250 DO Work Phone: Start: 09-14-[address] Kali Maharaj II Facility:[id number] Start: 09-12-2022 End: 09-12-2022 ambulatory Sergio Escudero Other [facility] [employer] Other Start: 09-12-2022 Office outpatient vi sit 15 minutes Sergio Escudero [facility] Vascular Surgery Start: 08-14-2022 ambulatory Abdulaziz Alvarez Facility :[id number] Start: 08-14-2022 Patient encounter procedure DO Edward Bernstein Work Phone: [facility] Start: 08-13-2022 End: 08-13-2022 ambulatory DO Edward Bernstein Work Phone: [facility] Work Phone: Start: 08-13-2022 End: 08-13-2022 Patient encounter procedure DO Edward Bernstein Work Phone: [facility] Start: 08-12-2022 ambulatory Abdulaziz Alvarez Facility :[id number] Start: 08-11-2022 ambulatory Abdulaziz Alvarez Facility :[id number] Start: 08-10-2022 ambulatory Abdulaziz Alvarez Facility :[id number] Start: 08-10-2022 End: 08-14-2022 Evaluation and management of inpatient DO Edward Bernstein Work Phone: [facility] [place] [facility] Start: 12-26-2021 End: 12-26-2021 ambulatory Jhonatan Oakes Other [facility] [employer] Other Start: 12-26-2021 Telephone encounter Jhonatan Oakes [facility] Vascular Surgery Start: 2021 End: 08-24-2021 ambulatory YULIA MCCRAY Facility:H1 Start: 07-10-2021 End: 07-11-[address] KALI MAHARAJ Facility:H1 Start: 07-03-[address] KALI MAHARAJ Facilit y:H1 Start: 02-08-2021 End: 03-08-[address] KALI MAHARAJ Facility:H1 Start: 02-01-2021 End: 02-02-2021 ambulatory LULU FRIEDMAN Facility:H1 Start: 01-31-2021 End: 02-01-2021 ambulatory UNKNOWN PROVIDER [facility] Start: 12-05-[address] MAX CARBONE Fac ility:H1 Start: 09-04-2018 End: 09-05-2018 Patient encounter procedure DEFAULT PHYSICIAN Facility:[facility] Procedures Date Procedure Procedure Detail Performing [...] contrast DO Edward Bernstein Work Phone: Start: 11-04-2022 Plain chest X-ray DO Er ic Bernstein Work Phone: Operative procedure on foot Abdulaziz Alvarez MD Work Phone: SARS-CoV-2, Influenz a & RSV (PCR) DO Edward Bernstein Work Phone: Tonsillectomy Abdulaziz Alvarez MD Work Phone: Total colonoscopy Abdulaziz day MD Work Phone: Plan of Treatment Date Care Activity Detail Author Start: 03-17-2025 End: 03-17-2025 Patient encounter procedure 03/17/2025 11:00 AM EDT [facility] [address] [address] [place] [address] Abdulaziz Alvarez MD [address] [facility], [address] [place] [address] [facility] Start: 02-17-2024 End: 02-17-2024 Patient encounter procedure 02/17/2024 1:15 PM EDT Office Visit [facility] [address] [place] [address] Kali Maharaj MD [address] [place] [address] [facility] Start: 01-23-2024 End: 01-23-2024 Patient encounter procedure 01/23/2024 4:10 PM EDT Procedure Visit [facility] [address] [place] [address] Ismael Aquino, DPM [address] [facility] [address] [place] [address] [facility] Start: 12-10-2023 End: 12-10-2023 Patient encounter procedure 12/10/2023 2:00 PM EST Office Visit [facility] [address] [place] [address] Yulia Mccray MD [address] [facility] [address] [place] [address] [facility] Start: 11-21-2023 Medicare Annual Wellness (AWV) Medicare Annual Wellness (AWV) [facility] Start: 11-14-2023 End: 11-14-2023 Patient encounter procedure 11/14/2023 4:50 PM EST Procedure Visit [facility] [address] [facility] 120 [place] [address] Ismael Aquino, DPM [address] [address] [facility] Start: 11-11-2023 End: 11-11-2023 Patient encounter procedure 11/11/2023 1:50 PM EST Procedure Visit [facility] 3[address] [place] [address] Ismael Aquino DPM [address] [address] [facility] Start: 08-10-2023 Echocardiography Echocardiogram [facility] Start: 06-07-2023 COVID-19 Vaccine ( season) COVID-19 Vaccine ( season) [facility] Start: 03-20-2023 Doppler ultrasonography of bilateral carotid arteries US carotid doppler BI [facility] Start: 03-20-2023 US.doppler Carotid arteries - bilateral [facility] Start: 03-13-2023 FUV, Provider: Abdulaziz Alvarez, Status: Pen, Time: 11:50 AM FUV, Provider: Abdulaziz Alvarez, Status: Pen, Time: 11:50 AM [facility] 250 DO Work Phone: Start: 09-21-2022 FUV, Provider: Abdulaziz Alvarez, Status: Pen, Time: 11:50 AM FUV, Provider: Abdulaziz Alvarez, Status: Pen, Time: 11:50 AM [facility] 250 DO Work Phone: Start: 08-14-2022 [facility] Start: 08-13-2022 [facility] Start: 08-12-2022 Referral to vascular surgeon [facility] Start: 08-10-2022 Hospital admission [facility] Start: 08-10-2022 [facility] Start: 08-30-2020 Zoster Vaccines (2 of 2) Zoster Vaccines (2 of 2) [facility] Start: 2000 RSV patients and/or patients aged 60+ years (1 - 1-dose 60+ series) RSV patients and/or patients aged 60+ years (1 - 1-dose 60+ series) [facility] Start: 1962 DTaP/Tdap/Td Vaccines (1 - Tdap) DTaP/Tdap/Td Vaccines (1 - Tdap) [facility] Start: 1940 Creatinine measurement Creatinine Level [facility] Start: 1940 Lipid panel Lipid Panel [facility] Start: 1940 Medicare Annual Wellness Visit Medicare Annual Wellness Visit (AWV) [facility] Start: 1940 Potassium measurement Potassium Level [facility] Start: 1940 Thyroid stimulating hormone measurement TSH Level [facility] Patient Education Carotid Artery Disease Carotid Artery Disease (DC) [facility] Work Phone: Patient referral [facility] Work Phone: Immunizations Immunization Date Immunization Notes Care Provider Tito gaviria 08-12-2023 Influenza, High-dose Seasonal, Quadrivalent, Preservative Free Ismael Aquino DPM Work Phone: [facility] 09-21-2022 Moderna SARS-CoV-2 Booster Vaccination Ismael Aquino DPM Work Phone: [facility] 07-27-2022 Fluzone High-Dose Quadrivalent 0.7 ML Intramuscular Suspension Prefilled Syringe Abdulaziz Alvarez MD Work Phone: [facility] 05-08-2022 Moderna COVID-19 Vac cine 100 MCG/0.5ML Intramuscular Suspension Abdulaziz Alvarez MD Work Phone: [facility] 250 DO Work Phone: 08-07-2021 influenza, high dose seasonal, preservative-free Abdulaziz Alvarez MD Work Phone: [facility] 250 DO Work Phone: 08-04-2021 Moderna COVID-19 Vac cine 100 MCG/0.5ML Intramuscular Suspension Abdulaziz Alvarez MD Work Phone: [facility] 250 DO Work Phone: 11-23-2020 Moderna COVID-19 Vac cine 100 MCG/0.5ML Intramuscular Suspension Abdulaziz Alvarez MD Work Phone: [facility] 250 DO Work Phone: 10-21-2020 Moderna COVID-19 Vac cine 100 MCG/0.5ML Intramuscular Suspension Abdulaziz Alvarez MD Work Phone: [facility] 250 DO Work Phone: 07-05-2020 zoster vaccine recombinant Abdulaziz Alvarez MD Work Phone: [facility] 07-01-2020 influenza, high dose seasonal, preservative-free Abdulaziz Alvarez MD Work Phone: [facility] 250 DO Work Phone: 07-01-2020 Influenza, High-dose Seasonal, Quadrivalent, Preservative Free Ismael Aquino DPM Work Phone: [facility] 06-22-2019 Seasonal trivalent influenza vaccine, adjuvanted, preservative free Abdulaziz Alvarez MD Work Phone: [facility] 07-21-2018 influenza, high dose seasonal, preservative-free Abdulaziz Alvarez MD Work Phone: [facility] 250 DO Work Phone: 06-06-2018 influenza, high dose seasonal, preservative-free Abdulaziz Alvarez MD Work Phone: [facility] 06-18-2017 influenza, high dose seasonal, preservative-free Abdulaziz Alvarez MD Work Phone: [facility] 06-18-2017 pneumococcal polysaccharide vaccine, 23 valent Abdulaziz Alvarez MD Work Phone: [facility] 07-13-2016 influenza, high dose seasonal, preservative-free Abdulaziz Alvarez MD Work Phone: [facility] 07-23-2015 pneumococcal conjuga te vaccine, 13 valent Abdulaziz Alvarez MD Work Phone: [facility] 07-07-2015 influenza, injectabl e, quadrivalent, preservative free Ismael Aquino DPM Work Phone: [facility] 07-03-2013 influenza, seasonal, injectable, preservative free Ismael Aquino DPM Work Phone: [facility] 10-07-2010 pneumococcal polysaccharide vaccine, 23 valent Ismael Aquino DPM Work Phone: [facility] 07-20-2010 seasonal influenza, intradermal, preservative free Ismael Aquino DPM Work Phone: [facility] Payers Date Payer Category Payer Medicaid MEDICAID MEDICAI D [id number] 2023-Present [address] [place] [address] [id number] 2023 Medicaid [id number] 2017 Medicare [id number] 1959 Private Health Insurance [id number] 1959 Self-pay 1940 Unknown [id number] 2.16.840.1.328780.3.579.2. 647 1940 Unknown [id number] 2.16.840.1.566842.3.579.2. 732 1940 Unknown [id number] 2.16.840.1.894581.3.579.2. 593 1940 Unknown [id number] 2.16.840.1.843582.3.579.2. 593 1940 Unknown [id number] 2.16.840.1.697306.3.579.2. 593 1940 Unknown [id number] 2.16.840.1.103234.3.579.2. 593 1940 Unknown [id number] 2.16.840.1.013800.3.579.2. 593 1940 Unknown [id number] 2.16.840.1.724027.3.579.2. 593 1940 Unknown [id number] 2.16.840.1.309203.3.579.2. 593 1940 Unknown [id number] 2.16.840.1.018055.3.579.2. 356 1940 Unknown [id number] 2.16.840.1.717359.3.579.2. 356 1940 Unknown [id number] 2.16.840.1.994734.3.579.2. 356 1940 Unknown [id number] 2.16.840.1.643700.3.579.2. 356 1940 Unknown [id number] 2.16.840.1.729039.3.579.2. 356 1940 Unknown [id number] 2.16.840.1.951389.3.579.2. 356 1940 Unknown [id number] 2.16.840.1.324363.3.579.2. 356 1940 Unknown [id number] 2.16.840.1.829595.3.579.2. 356 1940 Unknown [id number] 2.16.840.1.424307.3.579.2. 1244 1940 Unknown [id number] 2.16.840.1.346111.3.579.2. 1259 1940 Unknown [id number] 2.16.840.1.380608.3.579.2. 1259 1940 Unknown [id number] 2.16.840.1.116369.3.579.2. 1259 1940 Unknown [id number] 2.16.840.1.950704.3.579.2. 1259 1940 Unknown [id number] 2.16.840.1.132206.3.579.2. 1259 1940 Unknown [id number] 2.16.840.1.295172.3.579.2. 1259 1940 Unknown [id number] 2.16.840.1.749440.3.579.2. 1259 1940 Unknown [id number] 2.16.840.1.938732.3.579.2. 1259 Medicare Medicare [id number] Unknown Unknown Insurance No Card [id number] Unknown [id number] 2.16.840.1.494950.3.579.2. 531 Unknown [id number] 2.16.840.1.994496.3.579.2. 531 Social History Date Type Detail Facility Start: 10-16-2023 End: 03-17-2024 Sex Assigned At [employer] Other Start: 08-13-2022 End: 08-13-2022 Tobacco smoking status AZIS Smoker (finding) [facility] Start: 1940 Sex Assigned At Female F [facility] Start: 10-16-2023 End: 03-17-2024 Consumes alcohol occasionally Consumes alcohol occasionally -[facility] 250 DO Work Phone: Comment on above: coffee 1 cup daily; 1 pack per week; Start: 10-07-1987 [facility] Start: 10-07-1987 History of tobacco use Cigarette Smo ker [facility] History of tobacco use Passive smoker [facility] Start: 04-08-2023 End: 03-17-2024 Tobacco use and exposure Smokeless tobacco non-user [facility] Start: 10-16-2023 End: 11-14-2023 Alcohol intake Lifetime non-drinker (finding) [facility] Start: 1940 Sex Assigned At Not on file [facility] Start: 11-14-2023 Alcohol Comment caffeine intak e: 1-2 cups per day [facility] Start: 03-17-2024 [facility] Work Phone: Start: 03-17-2024 Alcoholic beverage intake Current drinker of alcohol (finding) [facility] Work Phone: Start: 03-17-2024 Alcohol [facility] Work Phone: Start: 03-07-2024 End: 03-17-2024 Exposure to SARS-CoV-2 (event) Not sure [facility] Goals Date Patient Goal Desired Activity /State Functional Status Date Assessment Result Facility 08-14-2022 Functional status Patient at Baseline [facility] Work Phone: 08-10-2022 Functional status Patient at Baseline [facility] Work Phone: Mental Status Date Assessment Result Facility 08-14-2022 Cognitive function Cognitive Sta tus Patient at Baseline [facility] Work Phone: 08-10-2022 Cognitive function Cognitive Sta tus Patient at Baseline [facility] Work Phone: Clinical Notes 08-10-2022 to 03-17-2024 [...] artery, unspecified laterality 5. Former smoker 6. [facility] resident Scribe Attestation By signing my name below, Cait Armijo LPN , Scribroger attest that this documentation has been prepared [...] discussion and plan. documented in this encounter [facility] Work Phone: 03-17-2024 Instructions Cait [...] year Same medications documented in this encounter [facility] Work Phone: 11-14-2023 History of [...] Ismael Aquino DPM documented in this encounter [facility] 09-26-2023 Evaluation note Encounter Date Diagnosis Assessment Notes Sep, Asymptomatic stenosis of right carotid artery (ICD-10 - I65.21) I recommend seeing this patient back in 1 year. I admonished her for smoking and offered her free resources to quit by the [facility]. She refused. There is no indication for any surgical intervention at this time. [employer] Other 06-14-2023 Evaluation note* Encounter Date Diagnosis [...] issues prior to her next scheduled appointment. [employer] Other 12-07-2022 Evaluation note* Encounter Date Diagnosis [...] for results in the next few weeks. [employer] Other 11-08-2022 Discharge summary Author Dee Kenney [facility] August 14, 2022 1:38pm Note Date/Time August 14, 2022 1 :13pm [facility] [address] [place] [address] Discharge Summary Signed Patient: Carley Quintanilla MR#: [id number] : 1940 Acct:[id number] Age/Sex: 81 / F Adm Date: 2 Loc: Room: [address] [place] [address]: Dee Kenney MD Copies to: [...] Regular Additional Instructions: You should have a [employer] 30 Day Medical Service Representative prior to discharge. Instructions: Carotid Artery Disease, [...] Day Location: Determined by Patient Ordered By: eDe Kenney Follow Up: Abdulaziz Alvarez MD [Active [...] <Electronically signed by Dee Kenney MD> 08/14/22 9198 [facility] Work Phone: 1(734) 259-521511-08-2022 Progress note Author Sergio Escudero [facility] August 14, 2022 11:52am Note Date/Time August 14, 2022 1 0:02am [facility] [address] [place] [address] Vascular Surgery Progress Note Signed with Shashi Patient: Carley Quintanilla MR#: [id number] : 1940 Acct:[id number] Age/Sex: 81 / F Adm Date: 2 Loc: Room: 9O2299-8 Type: ADM IN Attending Dr: Dee Kenney [...] <Electronically signed by Sergio Escudero MD> 08/14/22 115 Date of Service: 08/14/2022 Subjective Subjective Interval [...] signed by Sergio Escudero MD> 08/14/22 1002 [facility] Work Phone: 1(127) 961-991811-07-2022 Progress note Author Dee Kenney [facility] August 13, 2022 12:59pm Note Date/Time August 13, 2022 1 2:44pm [facility] [address] [place] [address] Hospitalist Progress Note Signed Patient: Carley Quintanilla MR#: [id number] : 1940 Acct:[id number] Age/Sex: 81 / F Adm Date: 2 Loc: 4N Room: [address] [place] [address] Type: ADM IN Attending Dr: Dee Kenney [...] signed by Dee Kenney MD> 08/13/22 1259 [facility] Work Phone: 1(449) 162-572311-07-2022 Progress note Author Abdulaziz Alvarez [facility] August 13, 2022 11:03am Note Date/Time August 13, 2022 1 1:03am [facility] [address] [place] [address] Cardiology Progress Note Signed Patient: Carley Quintanilla MR#: [id number] : 1940 Acct:[id number] Age/Sex: 81 / F Adm Date: 2 Loc: Room: [address] [place] [address] Type: ADM IN Attending Dr: Dee Kenney [...] cessation education Documented By: Abdulaziz Alvarez MD, [facility] 2 1100 Signed By: <Electronically signed by MD XENA Alvarez> 08/13/22 1103 [facility] Work Phone: 1(463) 250-510611-07-2022 Consult note Author Sergio Escudero [facility] August 13, 2022 9:29am Note Date/Time August 13, 2022 8 :53am [facility] [address] [place] [address] Vascular Surgery Consult Note Signed Patient: Carley Quintanilla MR#: [id number] : 1940 Acct:[id number] Age/Sex: 81 / F Adm Date: 2 Loc: Room: [address] [place] [address] Type: ADM IN Attending Dr: Dee Kenney MD Copies to: MD Raysa Ortiz II, MD Dee Thrasher MD~ HPI Consult HPI Reason for consult: [...] signed by Sergio Escudero MD> 08/13/22 0929 [facility] Work Phone: 1(162) 489-628211-06-2022 Progress note Author Dee Kenney [facility] August 12, 2022 4:23pm Note Date/Time August 12, 2022 4 :18pm [facility] [address] [place] [address] Hospitalist Progress Note Signed Patient: Carley Quintanilla MR#: [id number] : 1940 Acct:[id number] Age/Sex: 81 / F Adm Date: 2 Loc: 4N Room: 3M5760-6 Type: ADM IN Attending Dr: Dee Kenney [...] Tablet PO 08/11/23 21:59 Not Given QHS [facility] Heparin Sodium (Porcine) 5,000 unit 08/10/22 21:00 [...] 1,000 Ml IV 08/10/23 20:29 75 mls/hr .[id number] CARRI Administration Levothyroxine Sodium 75 mcg 08/11/22 [...] PT/OT. Documented By: Dee Kenney MD 08/12/22 2316 Signed By: <Electronically signed by Dee Kenney MD> 08/12/22 1623 [facility] Work Phone: 1(964) 670-726911-06-2022 Progress note Author Abdulaziz Alvarez [facility] August 12, 2022 10:01am Note Date/Time August 12, 2022 1 0:01am [facility] [address] [place] [address] Cardiology Progress Note Signed Patient: Carley Quintanilla MR#: [id number] : 1940 Acct:[id number] Age/Sex: 81 / F Adm Date: 2 Loc: Room: [address] [place] [address] Type: ADM IN Attending Dr: Dee Kenney [...] cessation education Documented By: Abdulaziz Alvarez MD, [facility] 2 5812 Signed By: <Electronically signed by MD XENA Alvarez> 08/12/22 1001 [facility] Work Phone: 1(909) 957-784311-05-2022 Progress note Author Dee Kenney [facility] August 11, 2022 2:19pm Note Date/Time August 11, 2022 2 :15pm [facility] [address] [place] [address] Hospitalist Progress Note Signed Patient: Carley Quintanilla MR#: [id number] : 1940 Acct:[id number] Age/Sex: 81 / F Adm Date: 2 Loc: Room: [address] [place] [address] Type: ADM IN Attending Dr: Dee Kenney [...] 1,000 Ml IV 08/10/23 20:29 75 mls/hr .[id number] CARRI Administration Levothyroxine Sodium 75 mcg 08/11/22 [...] signed by Dee Kenney MD> 08/11/22 1419 [facility] Work Phone: 1(806) 573-761411-05-2022 Consult note Author Abdulaziz Alvarez [facility] August 11, 2022 1:13pm Note Date/Time August 11, 2022 1 :09pm [facility] [address] [place] [address] Cardiology Consult Note Signed Patient: Carley Quintanilla MR#: [id number] : 1940 Acct:[id number] Age/Sex: 81 / F Adm Date: 2 Loc: Room: [address] [place] [address] Type: ADM IN Attending Dr: Dee Kenney MD Copies to: MD Abdulaziz Ortiz II, MD, [facility] Dee Kenney MD~ Cardiology HPI History [...] of hypertensionmanaged with Dr. Kali Maharaj in [facility]. She has been on diltiazem 360 mg daily. The patient has been stable since admission heart rate in the 50s. Diltiazem has been withheld Review of Systems Review of Systems Review of systems: 11 point review of system otherwise was normal. PMFSH Vaccinated for COVID-19?: Yes Medical History (Updated [...] Lymph # (Auto) 0.9 L (1.00-4.8) x10E3/uL [place] # (Auto) 0.6 (0.0-0.8) x10E3/uL Eos # [...] 07:59 15:59 Intake Total 1480 / 1480 960 / 1960 1000 / 1960 Output Total 400 / 400 Balance 1080 / 1080 / 1959 Intake: IV 1000 / 1000 1000 / 1000 Sodium Chloride 0.9% 1,000 ml 1 1000 / 1000 1000 / 1000 ,000 ml @ 75 mls/hr IV .[id number] CARRI Rx#:[id number] Oral 480 / 480 960 / 960 [...] Tobacco use Documented By: Abdulaziz Alvarez MD, [facility] 2 1304 Signed By: <Electronically signed by MD XENA Alvarez> 08/11/22 1313 [facility] Work Phone: 1(283) 780-752011-04-2022 History and physical note Author Dee Kenney [facility] August 10, 2022 8:17pm Note Date/Time August 10, 2022 8 :03pm [facility] [address] [place], [place] [address] Hospitalist H&P Signed Patient: Carley Quintanilla MR#: [id number] : 1940 Acct:[id number] Age/Sex: 81 / F Adm Date: 2 Loc: Room: [address] [place] [address] Type: ADM IN Attending Dr: Dee Kenney [...] than mentioned in history of presenting illness [facility] Medical History (Updated 08/10/22 @ [...] % (Auto) 9.5 % (.) 08/10/22 17:15 [place]ston % (Auto) 5.7 % (.) 08/10/22 17:15 Eos % (Auto) 0.7 % (.) 08/10/22 17:15 Baso % (Auto) 0.5 % (.) 08/10/22 17:15 Neut # (Auto) 8.3 x10E3/uL (1.8-7.7) H 08/10/22 17:15 Lymph # (Auto) 0.9 x10E3/uL (1.00-4.8) L 08/10/22 17:15 [place]ston # (Auto) 0.6 x10E3/uL (0.0-0.8) 08/10/22 17:15 [...] pH 5.5 (5.0-9.0) 08/10/22 19:20 Ur Specific Reva 1.014 (1.001-1.030) 08/10/22 19:20 Urine Protein Negative [...] <Electronically signed by Dee Kenney MD> 08/10/222016 [facility] Work Phone: Evaluation noteNo [employer] Other Evaluation note* Diagnosis Onset Date Resolution Status KRISTAN (acute kidney injury) ac galena Bilateral carotid artery disease acute HTN (hypertension) acute Syncope acute Tobacco abuse acute [facility] [employer] Work Phone: Evaluation noteNo assessment information available [facility] Work Phone: Evaluation note* Diagnosis PVD (peripheral vascular disease) ([facility])- Primary Unspecified peripheral vascular disease [...] history of tobacco use, presenting hazards to health [facility] resident History of syncope documented in this encounter [facility] Work Phone: History general Narrative - Reported* Type Description Date Medical History CAROTID STENOSIS BILATERAL Medical History hypertension Medical History hypercholesterolemia Medical History acid reflux Surgical History Foot Surgery Hospitalization History hypertension from [employer] Other History general Narrative - Reported* Type Description Date Medical History CAROTID STENOSIS BILATERAL Medical History hypertension Medical History hypercholesterolemia Medical History acid reflux Surgical History Foot Surgery Surgical History tonsillectomy Surgical History cataract Hospitalization History hypertension from [employer] Other Progress note Author Abdulaziz Alvarez [facility] August 14, 2022 5:26pm Note Date/Time August 14, 2022 5 :26pm [facility] [address] [place] [address] Cardiology Progress Note Signed Patient: Carley Quintanilla MR#: [id number] : 1940 Acct:[id number] Age/Sex: 81 / F Adm Date: 2 Loc: Room: [address] [place] [address] Type: DIS IN Attending Dr: Dee Kenney [...] cessation education Documented By: Abdulaziz Alvarez MD, [facility] 2 1725 Signed By: <Electronically signed by MD XENA Alvarez> 08/14/22 1726 [facility] Work Phone: Summary Purpose Family History No [...] of congestive heart failure: Father(V17.49, Z82.49) Status:Active Relationship Condition Age at Onset Recorded Date/T mark Not Specified Hypertension Unknown father Unknown mother Unknown Advance Directives No Advanced Directives Records Found [...] Complaint I65.23 Chief Complaint i65.23 Chief Complaint Unknown Chief Complaint * CARLEY QUINTANILLA is being [...] Procedures ECG 12 Lead Abdulaziz Alvarez MD [address] [place] [address] 2, [place] [id number] Referral ID Status Reason Start Date Expiration Date V isits Requested Visits Authorized [id number] Authorized 03/17/2024 03/17/2025 1 1 Specialty Diagnoses / Procedures Referred By Michael armstrong Referred To Contact Cardiology Diagnoses Primary hypertension Procedures Follow Up In Cardiology Abdulaziz Alvarez MD [facility] 2, [address] [address] Abdulaziz Alvarez MD [address] [place] [address] 2, [place] [address] [place] [id number] Referral ID Status Reason Start Date Expiration Date V isits Requested Visits Authorized [id number] Authorized 03/17/2024 03/17/2025 1 1 Additional Source Comments INFORMATION SOURCE (unrecogn ized section and content) DATE CREATED AUTHOR 09/15/2018 [facility] DATE CREATED AUTHOR AUTHOR'S ORGANIZ ATION 02/02/2021 [facility] [employer] DATE CREATED AUTHOR AUTHOR'S ORGANIZ ATION 08/30/2021 [facility] pital DATE CREATED AUTHOR AUTHOR'S ORGANIZ ATION 09/22/2021 [facility] DATE CREATED AUTHOR AUTHOR'S ORGANIZ ATION 09/28/2022 [employer] DATE CREATED AUTHOR AUTHOR'S ORGANIZ ATION 03/18/2023 [facility] DATE CREATED AUTHOR AUTHOR'S ORGANIZ ATION 03/18/[address] [facility] DATE CREATED AUTHOR AUTHOR'S ORGANIZ ATION 04/02/2024 [facility] EPIC DATE CREATED AUTHOR AUTHOR'S ORGANIZ ATION 04/29/2024 [facility] REASON FOR VISIT (unrecogniz ed section and content) Reason Comments Toenail Care Reason Comments Follow-up Dr. Evelyn CAPPS last s een 09/2022 Specialty Diagnoses / Procedures Referred By Contac t Referred To Contact Diagnoses Pre-op evaluation Procedures ECG 12 Lead Abdulaziz Alvarez MD [facility] 2, [address] [address] Referral ID Status Reason Start Date Expiration Date V isits Requested Visits Authorized [id number] Authorized 03/17/2024 03/17/2025 1 1 Care Teams (unrecognized sec tion and content) Team Status: Active Member Role Status Berta [...] Active Jhonatan Oakes MD Other Provider Active DEEPA Enriquez Other Provider Active Shelby Unger MD Other [...] Megan Jenkins LPN Other Provider Active Kalina Gilbert , COFFEE BLENDER Other Provider Active Jhonatan Oakes MD Other Provider Active Raysa Robins , [employer]IDE DOME[employer]IC [employer] Other Provider Active Shelby Unger MD Other Provider Active Sergio Escudero MD Other Provider Active Team Status: Inactive Member Role Status Dates Kali Maharaj II MD Primary Care Provider Active Raysa Robins , [employer] Attending Provider Active Tour Coordinator Relationship Specialty Start Date End Date Kali Maharaj MD [address] [place] [address] PCP - [employer] 12/05/22 Kali Maharaj MD [address] [place] [address] PCP - General Internal Medicine 04/10/23 Sarah Lozada, [facility] 10/30/23 Tour Coordinator Relationship Specialty Start Date End Date Kali Maharaj MD [address] [place] [address] PCP - [employer] 12/05/22 Kali Maharaj MD [address] [place] [address] PCP - General Internal Medicine 04/10/23 Sarah Lozada, [facility] 10/30/23 Tour Coordinator Relationship Specialty Start Date End Date Kali Maharaj MD [address] [place] [address] PCP - [employer] 12/05/22 Kali Maharaj MD [address] [place] [address] PCP - General Internal Medicine 04/10/23 Sarah Lozada [facility] [employer] 10/30/23 Tour Coordinator Relationship Specialty Start Date End Date Kali Maharaj MD [address] [facility] [address] [place] [address] PCP - General Internal Medicine 03/17/24 Team Status: Inactive Member Role Status Dates Adin Rivas DO Attending Provider Active Start : April 24, 2024 End: April 24, 2024 Goals (unrecognized section and content) Goals may [...] BE BASED ON THE PRIMARY CLINICAL RECORDS. [email or web address] provides no warranty or guarantee of the accuracy or completeness of information in this document.
[2024-05-08 08:46] LABS: Basophils Absolute Auto 0.1 10^3/uL (0.0-0.1); Basophils Percent Auto 0.6 % (0.2-2.0); Eosinophils Absolute Auto 0.2 10^3/uL (0.0-0.7); Eosinophils Percent Auto 1.9 % (0.9-7.0); Hematocrit 40.9 % (36.0-48.0); Hemoglobin 13.5 g/dL (12.0-16.0); Immature Granulocytes Abs Auto 0.08 10^3/uL (0.00-0.03); Immature Granulocytes Pct Auto 0.8 % (0.0-0.5); Lymphocytes Percent Auto 19.2 % (20.5-60.0); Mean Corpuscular Hemoglobin 30.1 pg (26.7-34.0); Mean Corpuscular Volume 91.3 fL (81.0-99.0); Mean Platelet Volume 12.5 fL (9.5-13.5); Monocytes Percent Auto 9.4 % (1.7-12.0); Neutrophils Absolute Auto 7.2 10^3/uL (1.4-6.5); Neutrophils Percent Auto 68.1 % (43.0-75.0); Platelet Count 212 10^3/uL (150-450); Red Blood Count 4.48 10^6/uL (4.20-5.40); Red Cell Distribution Width 14.6 % (11.0-15.0); White Blood Count 10.5 10^3/uL (4.0-11.0)
[2024-05-08 09:00] LABS: Anion Gap 15.9; BUN Creatinine Ratio 30.5; Calcium 9.4 mg/dL (8.5-10.1); Carbon Dioxide 26.1 mmol/L (21.0-32.0); Chloride 103 mmol/L (98-107); Estimated GFR (African America 25 (>=60); Estimated GFR (Non-African Ame 21 (>=60); Glucose 97 mg/dL (74-106); Sodium 141 mmol/L (136-145)
== END 2024-05-08 02:23 | disposition home or self-care (01) ==
LOC: LAB 02:22
PROVIDERS: PCP Internal Medicine; Visit Provider Nurse Practitioner
DX: R42 Dizziness and giddiness (principal)
CPT/HCPCS: 36415; 80048; 85025

== ENCOUNTER 2024-05-11 05:59 | Outpatient (REF) | payer MEDICARE, MEDICAID, SELFPAY ==
--- OUTSIDE RECORDS SUMMARY | 2024-05-11 06:03 | XMS_ITS | CCD ---
Author Organization [facility] Care Team Providers Care Formula Mixer Name Role Phone PHYSICIAN, DEFAULT Unavailable Unavailable [...] Emergency Provider DYLON Maharaj Primary Care Provider [phone] MD Dee Kenney Admit Provider MD Dee Kenney Attending Provider [phone] JUAN CARLOS Jenkins Other Provider UnavailJUAN CARLOS Silver Other Provider Unavailable MD Jhonatan Oakes Other Provider DEEPA Robins Other Provider MD Shelby Unger Other Provider MD Sergio Escudero Other Provider [phone] MD Abdulaziz Alvarez Attending Provider MD Abdulaziz [...] Kali Maharaj MD Primary Care Provider Neville HEMATOLOGY NURSE EDUCATOR, Sarah Unavailable Unavailable Neville HEMATOLOGY NURSE EDUCATOR, Sarah Unavailable Kali Maharaj MD Primary Care [...] source) Chocolate Drug allergy (disorder) 02-21-2012 [facility] Repository (1 source) Chocolate Drug allergy (disorder) 02-01-2021 [facility] Repository (1 source) Chocolate Drug allergy (disorder) 05-28-2021 [facility] Repository Medications Current Medications Medication Drug Class(es) [...] Administrative/social admission (4 sources) Lives in a group home; Translations: [Problems related to living in residential [...] source) detention (current) use of aspirin; Translations: [HALF-WAY CURRENT USE OF ASPIRIN] Onset: 02-09-2021 Episodic Other aftercare (1 source) Other terminal computer operator (current) drug therapy; Translations: [OTH HALF-WAY CURRENT DRUG THERAPY] Onset: 02-09-2021 Episodic Other [...] Test Name Value Interpretation Reference Range Facility [facility] 04-24-2024 L Specimen: [id number] Received: 04/28/24 Status: JAY Hopkins Num: [id number] Spec Type: Cytology Subm Dr: Adin Rivas Tissues: A CYST FLUID (RT OV CYST) Procedures: HE/2, Gross/Micro L4, Cyto Prepstain, PAPSTN Age/ Patient Sex Location Account Attending Physician Carley Quintanilla A 83/F LABELL [id number] Adin Rivas SPEC NUM: [id number] RECD: 04/28/24 STATUS: JAY ANDERSONNadia NUM: [id number] KELLY: 04/24/[address] [facility] DR: Adin Rivas ENTERED: 04/28/[address] [facility] DR: Ibeth,Lab SPEC TYPE: Cytology DEPT: [facility] ENTERED BY: [id number] RECV BY: [id number] ORDERED: HE/2, Gross/Micro L4, Cyto Prepstain, PAPSTN ORDERED: HE/2, Gross/Micro L4, Cyto Prepstain, PAPSTN Pathological Diagnosis Right ovarian cyst: Negative for malignant cells. Clinical Information right ovarian cyst Gross Description Received fresh is 50 ml yellow clear unfixed fluid for cytology said to have been obtained as fluid from Right ovarian cyst. ThinPrep and cell block preparations are prepared for microscopic examination. (NE/md) CPT Codes 88843 Specimen: [id number] Received: 04/28/24 Status: JAY Hopkins Num: [id number] Spec Type: Cytology Subm Dr: Adin Rivas Tissues: A CYST FLUID (RT OV CYST) Procedures: HE/2, Gross/Micro L4, Cyto Prepstain, PAPSTN Patient: Carley Quintanilla [id number] (Continued) Signed (signature on file) Shelby Gallagher MD 04/29/24 1545 Normal [facility] ECG 12 Leadon 03-17-2024 ECG revealed normal sinus rhythm and normal ECG [facility] Work Phone: US carotid doppler BIon 12-2 US carotid doppler BI [facility] [place] [place] [address] Ultrasound Report Signed Patient: Carley Quintanilla MR#: [id number] : 1940 Acct:[id number] Age/Sex: 83 / F ADM Date: 09/26/23 Loc: [facility] Room: Type: [facility] Attending Dr: Raysa Robins GASTROENTEROLOGY TEACHERShawnaC Ordering Provider: Raysa Robins APRN Date of [...] Sergio Escudero MD09/26/2023 1:51 PM Dictation Location: [place] [address] Tech: Olimpia Corea Transcribed By: ADEEL 09/26/23 1351 Dictated By: Sergio Escudero MD 09/26/23 1350 Signed By: 09/26/23 1351 Normal [facility] Office Visit (Cardiology)on 09-21-2022 Follow-up [...] quit smoking.; Status:Complete - Retrospective Authorization; Done: [id number] You need to stop smoking. Though it is not easy, more than half of all adult smokers have quit. We encourage you to write down all the reasons you should quit smoking and set a quit date for yourself. Ask us how we can help. You may also call 8-379-GGOEOzone Media SolutionsNOW for free resources and assistance.; Status:Complete - Retrospective Authorization; Done: [id number] Tobacco Use Screening; Status:Complete; Done: [id number] Patient Instructions Please bring all medicines, vitamins, [...] negative for complaint. Vitals Vital Signs Recorded: [id number] 12:15PM Heart Rate84, R Radial Rnkcrlbm496, RUE Fqwfamcug80, RUE Height5 ft 6 in Fevfps084 lb BMI Hwbvxrhjnw69.05 kg/m2 BSA Calculated1.76 Tobacco Usea) Yes Patient encouraged to stop using tobacco productsYes PHQ-2 Patient Declined/Screening not indicatedYes (more content not included)... Normal [employer] Tobacco Screening.on 022 Fall risk assessment a) No falls within the last year [facility] [employer] 250 DO Work Phone: Tobacco use status CPHS a) Yes [facility] DNA13y 250 DO Work Phone: Tobacco Screening. Yes [facility]site Careu george 250 DO Work Phone: No Panel Informationon 09-14 [facility] [employer] 250 DO Work Phone: Creatinine and Glomerular fi ltration rate.predicted panel (S/P/Bld)Ordered By: Dee Kenney on 08-12-2022 Creatinine [Mass/Vol] 1.16 mg/dL 0.44-1.03 [facility] Estimated glomerular filtrat ion rate (GFR) non- AmericanOrdered By: Dee Kenney on 08-12-2022 GFR/1.73 sq M.predicted among non-blacks MDRD (S/P/Bld) [Vol rate/Area] 45 mL/Min [facility] No Panel InformationOrdered By: Dee Kenney on 08-12-2022 Estimated GFR () 54 mL/Min [facility] Comment on above: GFR estimated refere nce range: According to KDOQI guidelines, <60 ml/min/1.73m2 is sufficient to diagnose a patient with chronic kidney disease. Pharmacy Creatinine Clearance (Chem 35.61 [facility] Serum or plasma anion gap de terminationOrdered By: eDe Kenney on 08-12-2022 Anion gap [Moles/Vol] 11.3 mmol/L 6.0-15.0 [facility] Serum or plasma calcium azalea urement (mass/volume)Ordered By: Dee Kenney on 08-12-2022 Calcium [Mass/Vol] 8.6 mg/dL 8.2-10.2 [facility] Serum or plasma chloride janet surement (moles/volume)Ordered By: Dee Kenney on 08-12-2022 Chloride [Moles/Vol] 110 mmol/L 95-114 [facility] Serum or plasma glucose azalea urement (mass/volume)Ordered By: Dee Kenney on 08-12-2022 Glucose [Mass/Vol] 95 mg/dL 70-100 [facility] Comment on above: ADA recommended refe rence rangeRandom Glucose Reference Range is dependent on time and content of last meal. Glucose of more than 200 mg/dL in a nonstressed, ambulatory subject supports the diagnosis of Diabetes Mellitus. Serum or plasma potassium me asurement (moles/volume)Ordered By: Dee Kenney on 08-12-2022 Potassium [Moles/Vol] 3.7 mmol/L 3.5-5.1 [facility] Serum or plasma sodium measu rement (moles/volume)Ordered By: Dee Kenney on 08-12-2022 Sodium [Moles/Vol] 141 mmol/L 136-146 [facility] Serum or plasma total carbon dioxide measurement (moles/volume)Ordered By: Dee Kenney on 08-12-2022 CO2 [Moles/Vol] 23.4 mmol/L 22.0-30.0 [facility] Serum or plasma urea nitroge n measurement (mass/volume)Ordered By: Dee Kenney on 08-12-2022 Urea nitrogen [Mass/Vol] 28 mg/dL 9-23 [facility] TSH DL <= 0.005 mIU/L QnOrde red By: Dee Kenney on 08-11-2022 TSH Qn 2.20 m[IU]/L 0.45-5.33 [facility] Basophils Auto (Bld) [#/Vol] Ordered By: Edward Bernstein on 08-10-2022 Basophils (Bld) [#/Vol] 0.1 10*3/uL 0.0-0.2 [facility] Basophils/100 WBC Auto (Bld) Ordered By: Edward Bernstein on 08-10-2022 Basophils/100 WBC (Bld) 0.5 % . [facility] Bilirubin Test strip Ql (U)O rdered By: Edward Bernstein on 08-10-2022 Bilirubin Ql (U) Negative Negative [facility] Body fluid albumin measureme nt (mass/volume)Ordered By: Edward Bernstein on 08-10-2022 Albumin (Body fld) [Mass/Vol] 3.3 g/dL 3.2-5.5 [facility] COVID CepheidOrdered By: Rima Bernstein on 08-10-2022 SARS-CoV-2 (COVID-19) Ab IA Ql Negative Negative [facility] Comment on above: This is a duplicate [employer] Xpert Xpress CoV-2/Flu/RSV Plus RNA by RT-PCR result to be used for statistical tracking purpose only. SARS-CoV-2 (COVID-19) RNA ALLISON+probe Ql (Unsp spec) [facility] Color Auto (U)Ordered By: Harjit Bernstein on 08-10-2022 Color (U) Yellow Yellow [facility] Eosinophils Auto (Bld) [#/Vo l]Ordered By: Edward Bernstein on 08-10-2022 Eosinophils (Bld) [#/Vol] 0.1 10*3/uL 0.0-0.45 [facility] Eosinophils/100 WBC Auto (Bl d)Ordered By: Edward Bernstein on 08-10-2022 Eosinophils/100 WBC (Bld) 0.7 % . [facility] Erythrocyte distribution wid th Auto (RBC) [Ratio]Ordered By: Edward Bernstein on 08-10-2022 Erythrocyte distribution width (RBC) [Ratio] 13.4 % 11.9-15.3 [facility] Globulin Calc (S) [Mass/Vol] Ordered By: Edward Bernstein on 08-10-2022 Globulin (S) [Mass/Vol] 2.7 g/dL [facility] Glucose Glucometer (BldC) [M ass/Vol]Ordered By: Edward Bernstein on 08-10-2022 Glucose [Mass/Vol] 101 mg/dL [facility] Comment on above: Random Glucose Refer ence Range is dependent on time and content of last meal. Glucose of more than 200 mg/dL in a nonstressed, ambulatory subject supports the diagnosis of Diabetes Mellitus. Hematocrit Auto (Bld) [Volum e fraction]Ordered By: Edward Bernstein on 08-10-2022 Hematocrit (Bld) [Volume fraction] 40.9 % 34.0-46.4 [facility] Hemoglobin [Mass/volume] in BloodOrdered By: Edward Bernstein on 08-10-2022 Hemoglobin (Bld) [Mass/Vol] 13.3 g/dL 11.8-15.4 [facility] Ketones Auto test strip (U) [Mass/Vol]Ordered By: Edward Bernstein on 08-10-2022 Ketones (U) [Mass/Vol] Trace Negative [facility] Laboratory - Chemistry and C hemistry - challengeOrdered By: Edward Bernstein on 08-10-2022 Magnesium [Mass/Vol] 2.2 mg/dL 1.6-2.6 [facility] Natriuretic peptide B (Bld) [Mass/Vol] 29.0 pg/mL 5-100 [facility] Laboratory - CoagulationOrde red By: Edward Bernstein on 08-10-2022 PT Coag (PPP) [Time] 11.0 s 9.0-12.9 [facility] Laboratory - Hematology and Cell countsOrdered By: Edward Bernstein on 08-10-2022 Nucleated RBC/100 WBC (Bld) [Ratio] 0.0 % 0-0.5 [facility] Leukocytes [#/volume] in Blo od by Automated countOrdered By: Edward Bernstein on 08-10-2022 WBC (Bld) [#/Vol] 9.9 10*3/uL 4.5-11.0 [facility] Lymphocytes Auto (Bld) [#/Vo l]Ordered By: Edward Bernstein on 08-10-2022 Lymphocytes (Bld) [#/Vol] 0.9 10*3/uL 1.00-4.8 [facility] Lymphocytes/100 WBC Auto (Bl d)Ordered By: Edward Bernstein on 08-10-2022 Lymphocytes/100 WBC (Bld) 9.5 % . [facility] MCH Auto (RBC) [Entitic mass ]Ordered By: Edward Bernstein on 08-10-2022 MCH (RBC) [Entitic mass] 30.6 pg 24.7-34.3 [facility] MCHC Auto (RBC) [Mass/Vol]Or dered By: Edward Bernstein on 08-10-2022 MCHC (RBC) [Mass/Vol] 32.6 g/dL 32.0-35.0 [facility] MCV Auto (RBC) [Entitic vol] Ordered By: Edward Bernstein on 08-10-2022 MCV (RBC) [Entitic vol] 94.0 fL 80-100 [facility] Monocytes Auto (Bld) [#/Vol] Ordered By: Edward Bernstein on 08-10-2022 Monocytes (Bld) [#/Vol] 0.6 10*3/uL 0.0-0.8 [facility] Monocytes/100 WBC Auto (Bld) Ordered By: Edward Bernstein on 08-10-2022 Monocytes/100 WBC (Bld) 5.7 % . [facility] Neutrophils Auto (Bld) [#/Vo l]Ordered By: Edward Bernstein on 08-10-2022 Neutrophils (Bld) [#/Vol] 8.3 10*3/uL 1.8-7.7 [facility] Neutrophils/100 WBC Auto (Bl d)Ordered By: Edward Bernstein on 08-10-2022 Neutrophils/100 WBC (Bld) 83.6 % . [facility] Nitrite Test strip Ql (U)Ord ered By: Edward Bernstein on 08-10-2022 Nitrite Ql (U) Negative Negative [facility] Platelet mean volume Auto (B ld) [Entitic vol]Ordered By: Edward Bernstein on 08-10-2022 Platelet mean volume (Bld) [Entitic vol] 10.2 fL 6.3-10.7 [facility] Platelet poor plasma interna tional normalized ratio (INR) by coagulation assay (relatOrdered By: Edward Bernstein on 08-10-2022 INR Coag (PPP) [Relative time] 1.0 {INR} [facility] Comment on above: INR Therapeutic Rang e [...] 08-10-2022 Platelets (Bld) [#/Vol] 193 10*3/uL 150-450 [facility] Protein Auto test strip (U) [Mass/Vol]Ordered By: Edward Bernstein on 08-10-2022 Protein (U) [Mass/Vol] Negative Negative [facility] Protein [Mass/volume] in Ser um or PlasmaOrdered By: Edward Bernstein on 08-10-2022 Protein [Mass/Vol] 6.0 g/dL 6.1-7.9 [facility] RBC Auto (Bld) [#/Vol]Ordere d By: Edward Bernstein on 08-10-2022 RBC (Bld) [#/Vol] 4.36 10*6/uL 3.60-5.[address] [facility] Serum or plasma alanine jensen otransferase measurement without P-5'-P (enzymatic activiOrdered By: Edward Bernstein on 08-10-2022 ALT No additional P-5'-P [Catalytic activity/Vol] 12 U/L 10-60 [facility] Serum or plasma albumin/glob ulin mass ratioOrdered By: Edward Bernstein on 08-10-2022 Albumin/Globulin [Mass ratio] 1.2 {ratio} [facility] Serum or plasma alkaline sondra sphatase measurement (enzymatic activity/volume)Ordered By: Edward Bernstein on 08-10-2022 ALP [Catalytic activity/Vol] 52 U/L 32-92 [facility] Serum or plasma aspartate am inotransferase measurement (enzymatic activity/volume)Ordered By: Edward Bernstein on 08-10-2022 AST [Catalytic activity/Vol] 16 U/L 10-42 [facility] Serum or plasma total biliru bin measurement (mass/volume)Ordered By: Edward Bernstein on 08-10-2022 Bilirubin [Mass/Vol] 0.5 mg/dL 0.3-1.2 [facility] Specific gravity Auto test s trip (U) [Rel density]Ordered By: Edward Bernstein on 08-10-2022 Specific gravity (U) [Rel density] 1.014 1.001-1.03 0 [facility] Troponin I.cardiac [Mass/vol ume] in Serum or Plasma by High sensitivity methodOrdered By: Edward Bernstein on 08-10-2022 Troponin I.cardiac High sensitivity method [Mass/Vol] 9 pg/mL 0-15 [facility] Urine clarity by refractomet ry automatedOrdered By: Edward Bernstein on 08-10-2022 Clarity Refractometry automated (U) Clear Clear [facility] Urine glucose measurement by automated test strip (mass/volume)Ordered By: Edward Bernstein on 08-10-2022 Glucose Auto test strip (U) [Mass/Vol] Normal mg/dL Normal [facility] Urine hemoglobin detection b y automated test stripOrdered By: Edward Bernstein on 08-10-2022 Hemoglobin Auto test strip Ql (U) Negative Negative [facility] Urine leukocyte esterase det ection by automated test stripOrdered By: dEward Bernstein on 08-10-2022 Leukocyte esterase Auto test strip Ql (U) Negative Negative [facility] Urobilinogen Auto test strip (U) [Mass/Vol]Ordered By: Edward Bernstein on 08-10-2022 Urobilinogen (U) [Mass/Vol] Normal mg/dL Normal [facility] pH Auto test strip (U)Ordere d By: Edward Bernstein on 08-10-2022 pH (U) 5.5 [pH] 5.0-9.0 [facility] MRI Brain w/oon 09-20-2021 MRI Brain w/o CLINICAL HISTORY: COMPARISON: TECHNIQUE: Multipl[facility]ar [facility] MRI of the brain was performed contrast. [...] by MATTHEW TRIPLETT on 09/21/2021 1240 Normal [facility] [employer] Radio Technician LYME DISEASE, WESTERN BLOTon 08-26-2021 IgG P18 Ab. Absent Normal [facility] Comment on above: Performed By: #### L YMWB #### [facility] [address] [place] [address] [address] Christian Lebron IgG P23 Ab. Absent Normal [facility] Comment on above: Performed By: #### L YMWB #### [facility] [address] [place] [address] Dr. Christian Lebron IgG P28 Ab. Absent [facility] Comment on above: Performed By: #### L YMWB #### [facility] [address] [place] [address] Dr. Christian Lebron IgG P30 Ab. Absent [facility] Comment on above: Performed By: #### L YMWB #### [facility] [address] [place] [address] Dr. Christian Lebron IgG P39 Ab. Absent [facility] Comment on above: Performed By: #### L YMWB #### [facility] [address] [place] [address] Dr. Christian Lebron IgG P41 Ab. Absent [facility] Comment on above: Performed By: #### L YMWB #### [facility] [address] [place] [address] Dr. Christian Lebron IgG P45 Ab. Absent [facility] Comment on above: Performed By: #### L YMWB #### [facility] [address] [place] [address] Dr. Christian Lebron IgG P58 Ab. Absent [facility] Comment on above: Performed By: #### L YMWB #### [facility] [address] [place] [address] Dr. Christian Lebron IgG P66 Ab. Absent [facility] Comment on above: Performed By: #### L YMWB #### [facility] [address] [place] [address] Dr. Christian Lebron IgG P93 Ab. Absent [facility] Comment on above: Performed By: #### L YMWB #### [facility] [address] [place] [address] Dr. Christian Lebron IgM P23 Ab. Absent [facility] Comment on above: Performed By: #### L YMWB #### [facility] [address] [place] [address] Dr. Christian Lebron IgM P39 Ab. Absent Normal [facility] Comment on above: Performed By: #### L YMWB #### [facility] [address] [place] [address] Dr. Christian Lebron IgM P41 Ab. Absent [facility] Comment on above: Performed By: #### L YMWB #### [facility] [address] [place] [address] Dr. Christian Lebron Lyme IgG WB Interp. Negative [facility] Comment on above: Result Comment: Posi tive: 5 of the following Borrelia-specific bands: 18,23,28,30,39,41,45,58, 66, and 93. Negative: No bands or banding patterns which do not meet positive criteria. Performed By: #### L YMWB #### [facility] [address] [place] [address] Dr. Christian Lebron Lyme IgM WB Interp. Negative [facility] Comment on above: Result Comment: Note : [...] are those recommended by CDC/ASTPHLD. p23=Osp C, z59=owubxvwcd . Note: Sera from individuals with the following may cross react in the Lyme Line Blot assays: other spirochetal diseases (periodontal disease, leptospirosis, relapsing fever, yaws, and pinta); connective autoimmune (Rheumatoid Arthritis and Systemic Lupus Erythematosus and also individuals with Antinuclear Antibody); other infections (Lead Spotted Fever; Roel-Briones Virus, and Cytomegalovirus). . Performed By: #### L YMWB #### [facility] [address] [address] [address] Christian Lebron METHYLMALONIC ACID (MMA)on 10-26-2020 Disclaimer: Comment Normal [facility] Comment on above: Result Comment: This test was developed and its performance characteristics determined by [employer]. It has not been cleared or approved by the Food and Drug Administration. Performed By: #### M MA2 #### [facility] [address] [place] [address] Dr. Christian Lebron Methylmalonic Acid, Serum 255 nmol/L Normal 0-378 [facility] Comment on above: Performed By: #### M MA2 #### [facility] [address] [place] [address] Dr. Christian Lebron HOMOCYSTEINEon 08-25-2021 Homocyst(e)ine, Plasma 29.7 umol/L Critically high 0.0-21. 3 [facility] Comment on above: Result Comment: Spec imen quantity insufficient for verification by repeat analysis. Performed By: #### H OMCY #### [facility] [address] [place] [address] Dr. Christian Lebron RPR QUANTon 08-24-2021 Rapid Plasma Reagin, Quant Non-Reactive Normal NonRea<1:1 [facility] Comment on above: Performed By: #### R PRQ #### [facility] [address] [place] [address] Dr. Christian Lebron AMMONIAon 2021 Ammonia (P) [Moles/Vol] 9 umol/L Critically low 10-30 [facility] Comment on above: Performed By: #### M MA2 #### [facility] [address] [place] [address] Dr. Christian Lebron CRPon 2021 CRP [Mass/Vol] mg/L Normal <=1.0 [facility] Comment on above: Performed By: #### M MA2 #### [facility] [address] [place] [address] Dr. Christian Lebron FOLATEon 2021 FOLATE 4.50 ng/mL Normal >=2.76 [facility] Comment on above: Performed By: #### F T4, VITB12, FOL #### [facility] [address] [place] [address] Dr. Christian Lebron FREE T4on 2021 Free T4 [Mass/Vol] 0.98 ng/dL Normal 0.78-2.19 [facility] Comment on above: Performed By: #### F T4, VITB12, FOL #### [facility] [address] [place] [address] Dr. Christian Lebron LIVER PROFILEon 2021 Albumin [Mass/Vol] 3.6 g/dL Normal 3.5-5.0 [facility] Comment on above: Performed By: #### M MA2 #### [facility] [address] [place] [address] Dr. hCristian Lebron Albumin/Globulin [Mass ratio] 1.0 {ratio} Normal [facility] Comment on above: Performed By: #### M MA2 #### [facility] [address] [place] [address] Dr. Christian Lebron ALP [Catalytic activity/Vol] 96 U/L Normal 38-126 [facility] Comment on above: Performed By: #### M MA2 #### [facility] [address] [place] [address] Dr. Christian Lebron ALT [Catalytic activity/Vol] 14 U/L Normal 9-52 [facility] Comment on above: Performed By: #### M MA2 #### [facility] [address] [place] [address] Dr. Christian Lebron AST [Catalytic activity/Vol] 17 U/L Normal 14-36 [facility] Comment on above: Performed By: #### M MA2 #### [facility] [address] [place] [address] Dr. Christian Lebron BILI, CONJUGATED 0.1 mg/dL Normal 0.0-0.3 [facility] Comment on above: Performed By: #### M MA2 #### [facility] [address] [place] [address] Dr. Christian Lebron Bilirubin [Mass/Vol] 0.3 mg/dL Normal 0.2-1.3 [facility] Comment on above: Performed By: #### M MA2 #### [facility] [address] [place] [address] Dr. Christian Lebron Globulin (S) [Mass/Vol] 3.7 g/dL Normal [facility] Comment on above: Performed By: #### M MA2 #### [facility] [address] [place] [address] Dr. Christian Lebron Protein [Mass/Vol] 7.3 g/dL Normal 6.1-8.2 [facility] Comment on above: Performed By: #### M MA2 #### [facility] [address] [place] [address] Dr. Christian Lebron [facility] mm/hr Critically high <=30 [facility] Comment on above: Performed By: #### H OMCY #### [facility] [address] [place] [address] Dr. Christian Lebron TSHon 2021 TSH 3.087 uIU/mL Normal 0.470-4.68 0 [facility] Comment on above: Performed By: #### M MA2 #### [facility] [address] [place] [address] Dr. Christian Lebron TSH RANGE SEE BELOW Normal [facility] Comment on above: Result Comment: <0.3 4 UIU/ml HYPERTHYROID 0.34-5.60 UIU/ml EUTHYROID >5.60 UIU/ml HYPOTHYROID Performed By: #### M MA2 #### [facility] [address] [place] [address] Dr. Christian Lebron VITAMIN B12on 2021 Cobalamin (Vitamin B12) [Mass/Vol] 521.0 pg/mL Normal 239.0-931. 0 [facility] Comment on above: Performed By: #### F T4, VITB12, FOL #### [facility] [address] [place] [address] Dr. Christian Lebron XR DEXA BONE DENSITYon [...] - High Fracture Risk Electronically authenticated by: OAMR SOTELO Date: 2021-07-10 14:50 Normal [facility] CBC AUTO DIFFon 02-02-2021 BASO # 0.1 103/ul Normal 0.0-0.1 [facility] Comment on above: Performed By: #### C BC #### [facility] [address] [place], [place] [id number] Lauri Pily Basophils/100 WBC (Bld) 0.4 % Normal 0.2-2.0 [facility] Comment on above: Performed By: #### C BC #### [facility] [address] [place], [place] [id number] Lauri Pily EO # 0.1 103/ul Normal 0.0-0.7 [facility] Comment on above: Performed By: #### C BC #### [facility] [address] [place], [place] [id number] Lauri Pily Eosinophils/100 WBC (Bld) 0.9 % Normal 0.9-7.0 [facility] Comment on above: Performed By: #### C BC #### [facility] [address] [place] [address] Lauri Pily Erythrocyte distribution width (RBC) [Ratio] 14.2 % Normal 11.0-15.0 [facility] Comment on above: Performed By: #### C BC #### [facility] [address] [place] [address] Laurilaura Nascimento Hematocrit (Bld) [Volume fraction] 40.8 % Normal 36.0-48.0 [facility] Comment on above: Performed By: #### C BC #### [facility] [address] [place], [place] [id number] Laurilaura Nascimento Hemoglobin (Bld) [Mass/Vol] 13.1 g/dL Normal 12.0-16.0 [facility] Comment on above: Performed By: #### C BC #### [facility] [address] [place] [address] Laurilaura Nascimento IG # 0.06 10e3/ul Critically high 0.00-0.03 [facility] Comment on above: Performed By: #### C BC #### [facility] [address] [place] [address] Laurilaura Nascimento IG % 0.5 % Normal 0.0-0.5 [facility] Comment on above: Performed By: #### C BC #### [facility] [address] [place] [address] Laurilaura Nascimento LYMPH # 2.4 103/ul Normal 1.2-3.8 [facility] Comment on above: Performed By: #### C BC #### [facility] [address] [place] [address] Lauri Nascimento Lymphocytes/100 WBC (Bld) 20.7 % Normal 20.5-60.0 [facility] Comment on above: Performed By: #### C BC #### [facility] [address] [place] [address] Lauri Nascimento MANUAL DIFF REQ NO Normal [facility] Comment on above: Performed By: #### C BC #### [facility] [address] [place], [place] [id number] Lauri Nascimento MCH (RBC) [Entitic mass] 28.5 pg Normal 26.7-34.0 [facility] Comment on above: Performed By: #### C BC #### [facility] [address], [place] [address] Laurilaura Nascimento MCHC (RBC) [Mass/Vol] 32.1 g/dL Normal 29.9-35.2 [facility] Comment on above: Performed By: #### C BC #### [facility] [address], [place] [address] Laurilaura Nascimento MCV (RBC) [Entitic vol] 88.9 fL Normal 81.0-99.0 [facility] Comment on above: Performed By: #### C BC #### [facility] [address], [place] [address] Lauri Pily MONO # 0.9 103/ul Critically high 0.3-0.8 [facility] Comment on above: Performed By: #### C BC #### [facility] [address] [id number] Lauri Pily Monocytes/100 WBC (Bld) 7.7 % Normal 1.7-12.0 [facility] Comment on above: Performed By: #### C BC #### [facility] [address] [id number] Lauri Pily NEUT # 8.1 103/ul Critically high 1.4-6.5 [facility] Comment on above: Performed By: #### C BC #### [facility] [address] [place], [place] [id number] Lauri Pily Neutrophils/100 WBC (Bld) 69.8 % Normal 43.0-75.0 [facility] Comment on above: Performed By: #### C BC #### [facility] [address] [id number] Lauri Pily Platelet mean volume (Bld) [Entitic vol] 11.9 fL Normal 9.5-13.5 [facility] Comment on above: Performed By: #### C BC #### [facility] [address] [id number] Aluri Pily PLT 197 103/ul Normal 150-450 [facility] Comment on above: Performed By: #### C BC #### [facility] [address] [id number] Lauri Pily RBC 4.59 106/ul Normal 4.20-5.40 [facility] Comment on above: Performed By: #### C BC #### [facility] [address] [place] [address] Lauri Nascimento WBC 11.6 103/ul Critically high 4.0-11.0 [facility] Comment on above: Performed By: #### C BC #### [facility] [address] [place] [address] Lauri Nascimento PROF CHEM 8 (BAS METB)on Anion gap [Moles/Vol] 12.7 mmol/L Normal [facility] Comment on above: Performed By: #### H OMCY #### [facility] [address] [place] [address] Dr. Christian Lebron Calcium [Mass/Vol] 9.1 mg/dL Normal 8.4-10.2 [facility] Comment on above: Performed By: #### H OMCY #### [facility] [address] [place] [address] Dr. Christian Lebron Chloride [Moles/Vol] 110 mmol/L Critically high 98-107 [facility] Comment on above: Performed By: #### H OMCY #### [facility] [address] [place] [address] Dr. Christian Lebron CO2 [Moles/Vol] 21.7 mmol/L Critically low 22.0-30.0 [facility] Comment on above: Performed By: #### H OMCY #### [facility] [address] [place] [address] Dr. Christian Lebron Creatinine [Mass/Vol] 1.25 mg/dL Critically high 0.52-1.04 [facility] Comment on above: Performed By: #### H OMCY #### [facility] [address] [place] [address] Dr. Christian Lebron EGFR-AF NAMIBIAN 50 mL/min/1.73m2 Critically low >=60 [facility] Comment on above: Performed By: #### H OMCY #### [facility] [address] [place], [place] [id number] Dr. Christian Lebron EGFR-NON AF NAMIBIAN 41 mL/min/1.73m2 Critically low >=60 [facility] Comment on above: Performed By: #### H OMCY #### [facility] [address] [address] [address] Christian Lebron Glucose [Mass/Vol] 117 mg/dL Critically high 74-106 [facility] Comment on above: Performed By: #### H OMCY #### [facility] [address] [address] [address] Christian Lebron Potassium [Moles/Vol] 3.4 mmol/L Normal 3.4-5.0 [facility] Comment on above: Performed By: #### H OMCY #### [facility] [address] [address] [address] Christian Lebron Sodium [Moles/Vol] 141 mmol/L Normal 137-145 [facility] Comment on above: Performed By: #### H OMCY #### [facility] [address] [place] [address] Dr. Christian Lebron Urea nitrogen [Mass/Vol] 28.0 mg/dL Critically high 7.0-17.0 [facility] Comment on above: Performed By: #### H OMCY #### [facility] [address] [place] [address] Dr. Christian Lebron Urea nitrogen/Creatinine [Mass ratio] 22.4 mg/mg Normal [facility] Comment on above: Performed By: #### H OMCY #### [facility] [address] [place] [address] [address] Christian Lebron CBC AUTO DIFFon 02-01-2021 BASO # 0.1 103/ul Normal 0.0-0.1 [facility] Comment on above: Performed By: #### M MA2 #### [facility] [address] [place] [address] Dr. Christian Lebron Basophils/100 WBC (Bld) 0.5 % Normal 0.2-2.0 [facility] Comment on above: Performed By: #### M MA2 #### [facility] [address] [address] [address] Christian Lebron EO # 0.1 103/ul Normal 0.0-0.7 [facility] Comment on above: Performed By: #### M MA2 #### [facility] [address] [place] [address] Dr. Christian Lebron Eosinophils/100 WBC (Bld) 1.0 % Normal 0.9-7.0 [facility] Comment on above: Performed By: #### Khadar HORNE2 #### [facility] [address] [place] [address] Dr. Christian Lebron Erythrocyte distribution width (RBC) [Ratio] 13.9 % Normal 11.0-15.0 [facility] Comment on above: Performed By: #### Khadar HORNE2 #### [facility] [address] [place] [address] Dr. Christian Lebron Hematocrit (Bld) [Volume fraction] 38.7 % Normal 36.0-48.0 [facility] Comment on above: Performed By: #### Khadar HORNE2 #### [facility] [address] [place] [address] Dr. Christian Lebron Hemoglobin (Bld) [Mass/Vol] 12.3 g/dL Normal 12.0-16.0 [facility] Comment on above: Performed By: #### Khadar HORNE2 #### [facility] [address] [place] [address] Dr. Christian Lebron IG # 0.04 10e3/ul Critically high 0.00-0.03 [facility] Comment on above: Performed By: #### Khadar HORNE2 #### [facility] [address] [place] [address] Dr. Christian Lebron IG % 0.4 % Normal 0.0-0.5 [facility] Comment on above: Performed By: #### M MA2 #### [facility] [address] [place] [address] Dr. Christian Lebron LYMPH # 2.0 103/ul Normal 1.2-3.8 [facility] Comment on above: Performed By: #### Khadar HORNE2 #### [facility] [address] [place] [address] Dr. Christian Lebron Lymphocytes/100 WBC (Bld) 22.0 % Normal 20.5-60.0 [facility] Comment on above: Performed By: #### M MA2 #### [facility] [address] [place] [address] Dr. Christian Lebron MANUAL DIFF REQ NO Normal [facility] Comment on above: Performed By: #### M OZZIE2 #### [facility] [address] [place] [address] Dr. Christian Lebron MCH (RBC) [Entitic mass] 29.0 pg Normal 26.7-34.0 [facility] Comment on above: Performed By: #### Khadar HORNE2 #### [facility] [address] [place] [address] Dr. Christian Lebron MCHC (RBC) [Mass/Vol] 31.8 g/dL Normal 29.9-35.2 [facility] Comment on above: Performed By: #### Khadar HORNE2 #### [facility] [address] [place] [address] Dr. Christian Lebron MCV (RBC) [Entitic vol] 91.3 fL Normal 81.0-99.0 [facility] Comment on above: Performed By: #### Khadar HORNE2 #### [facility] [address] [place] [address] Dr. Christian Lebron MONO # 0.8 103/ul Normal 0.3-0.8 [facility] Comment on above: Performed By: #### Khadar HORNE2 #### [facility] [address] [place] [address] Dr. Christian Lebron Monocytes/100 WBC (Bld) 8.7 % Normal 1.7-12.0 [facility] Comment on above: Performed By: #### M OZZIE2 #### [facility] [address] [place] [address] Dr. Christian Lebron NEUT # 6.2 103/ul Normal 1.4-6.5 [facility] Comment on above: Performed By: #### Khadar HORNE2 #### [facility] [address] [place] [address] [address] Christian Lebron Neutrophils/100 WBC (Bld) 67.4 % Normal 43.0-75.0 [facility] Comment on above: Performed By: #### M MA2 #### [facility] [address] [place] [address] [address] Christian Lebron Platelet mean volume (Bld) [Entitic vol] 11.9 fL Normal 9.5-13.5 [facility] Comment on above: Performed By: #### M MA2 #### [facility] [address] [place] [address] [address] Christian Lebron PLT 175 103/ul Normal 150-450 [facility] Comment on above: Performed By: #### M MA2 #### [facility] [address] [place] [address] Dr. Christian Lebron RBC 4.24 106/ul Normal 4.20-5.40 [facility] Comment on above: Performed By: #### M MA2 #### [facility] [address] [place] [address] [address] Christian Lebron WBC 9.1 103/ul Normal 4.0-11.0 [facility] Comment on above: Performed By: #### M MA2 #### [facility] [address] [place] [address] HEAD WO CONon [...] by: YAQUELIN ANSARI Date: 2021-01-31 22:45 Normal [facility] ECHO LIMITED STUDYon 021 ECHO LIMITED STUDY Patient: CARLEY QUINTANILLA Exam Date: 02/01/2021 : 1940 Gender:F Ordering : DR. LULU FRIEDMAN . Admission #: [id number] Family : DR KALI MAHARAJ M.D. Order #: [id number] CLICK HERE TO VIEW EXAM ECHOCARDIOGRAM REPORT [...] Area(A4C): 15.60 cm2 Left Atrium Systolic Volume(A2C): 44560 mm3 Left Atrium Systolic Volume(A4C): 03643 mm3 Mitral Valve Right Ventricle Aorta AO Root Diam: 3.10 cm Aortic Valve Tricuspid Valve Pulmonic Valve Right Atrium Dictated by: Max Carbone M.D. on 02/01/2021 at 13:45 Approved by: Max Carbone M.D. on 02/01/2021 at 13:51 Normal [facility] ER URINE PROFILEon 1 Bilirubin Ql (U) Negative Normal NEGATIVE [facility] Comment on above: Performed By: #### E RUR #### [facility] [address] [place] [address] Lauri Pily Clarity (U) CLEAR Normal CLEAR [facility] Comment on above: Performed By: #### E RUR #### [facility] [address] [place] [address] Lauri Pily Color (U) LT. YELLOW Normal YELLOW [facility] Comment on above: Performed By: #### E RUR #### [facility] [address] [place] [address] Lauri Pily ERUAHD A micrscopic examina tion will be performed if indicated. Normal [facility] Comment on above: Performed By: #### E RUR #### [facility] [address] [place] [address] Lauri Iply Glucose Ql (U) Negative Normal NEGATIVE [facility] Comment on above: Performed By: #### E RUR #### [facility] [address] [place] [address] Lauri Pily Hemoglobin Ql (U) Negative Normal NEGATIVE [facility] Comment on above: Performed By: #### E RUR #### [facility] [address] [place] [address] Lauri Pily Ketones Ql (U) TRACE Abnormal NEGATIVE [facility] Comment on above: Performed By: #### E RUR #### [facility] [address] [place] [address] Lauri Nascimento LEUKOCYTES Negative Normal NEGATIVE [facility] Comment on above: Performed By: #### E RUR #### [facility] [address] [place], [place] [id number] Laurilaura Nascimento Nitrite Ql (U) Negative Normal NEGATIVE [facility] Comment on above: Performed By: #### E RUR #### [facility] [address] [place] [address] Lauri Nascimento pH (U) 5.0 [pH] Normal 5-9 [facility] Comment on above: Performed By: #### E RUR #### [facility] [address] [place] [address] Lauri Nascimento SPEC GRAVITY 1.025 Normal 1.005-<=1. 025 [facility] Comment on above: Performed By: #### E RUR #### [facility] [address] [place] [address] Lauri Nascimento UA PROTEIN TRACE Normal NEGATIVE/ TRACE [facility] Comment on above: Performed By: #### E RUR #### [facility] [address] [place] [address] Lauir Nascimento UR MICRO IND NOT INDICATED Normal [facility] Comment on above: Performed By: #### E RUR #### [facility] [address] [place] [address] Lauri Nascimento Urobilinogen Qn (U) 0.2 {Irineo'U}/dL Normal 0.2 - 1. 0 [facility] Comment on above: Performed By: #### E RUR #### [facility] [address] [place] [address] Lauri Nascimento PROF CHEM 8 (BAS METB)on Anion gap [Moles/Vol] 15.6 mmol/L Normal Th [facility] Comment on above: Performed By: #### M MA2 #### [facility] [address] [address] [address] Christian Lebron Calcium [Mass/Vol] 8.8 mg/dL Normal 8.4-10.2 [facility] Comment on above: Performed By: #### M MA2 #### [facility] [address] [address] [address] Christian Lebron Chloride [Moles/Vol] 109 mmol/L Critically high 98-107 [facility] Comment on above: Performed By: #### M MA2 #### [facility] [address] [address] [address] Christian Lebron CO2 [Moles/Vol] 23.1 mmol/L Normal 22.0-30.0 [facility] Comment on above: Performed By: #### M MA2 #### [facility] [address] [address] [address] Christian Lebron Creatinine [Mass/Vol] 1.49 mg/dL Critically high 0.52-1.04 [facility] Comment on above: Performed By: #### M MA2 #### [facility] [address] [address] [address] Christian Lebron EGFR-AF NAMIBIAN 41 mL/min/1.73m2 Critically low >=60 [facility] Comment on above: Performed By: #### M MA2 #### [facility] [address] [address] [address] Christian Lebron EGFR-NON AF NAMIBIAN 34 mL/min/1.73m2 Critically low >=60 [facility] Comment on above: Performed By: #### M MA2 #### [facility] [address] [address] [address] Christian Lebron Glucose [Mass/Vol] 114 mg/dL Critically high 74-106 T [facility] Comment on above: Performed By: #### M MA2 #### [facility] [address] [address] [address] Christian Lebron Potassium [Moles/Vol] 3.7 mmol/L Normal 3.4-5.0 [facility] Comment on above: Performed By: #### M MA2 #### [facility] [address] [address] [address] Christian Lebron Sodium [Moles/Vol] 144 mmol/L Normal 137-145 [facility] Comment on above: Performed By: #### M MA2 #### [facility] [address] [place] [address] Dr. Christian Lebron Urea nitrogen [Mass/Vol] 28.0 mg/dL Critically high 7.0-17.0 [facility] Comment on above: Performed By: #### M MA2 #### [facility] [address] [address] [address] Christian Lebron Urea nitrogen/Creatinine [Mass ratio] 18.8 mg/mg Normal [facility] Comment on above: Performed By: #### M MA2 #### [facility] [address] [place] [address] Dr. Christian Lebron Rapid Covid-19 PCR (CVDRPD)o n 02-01-2021 SARS-CoV-2 (COVID-19) RNA ALLISON+probe Ql (Unsp spec) Not detected Normal NOT DETECTED [facility] Comment on above: Result Comment: This test is not yet approved or cleared by the [place] Food and Drug Administration (FDA). This test was developed by [employer], [place], [place]. The performance characteristics of this test were validated by [facility]. The results are not intended to be used as the sole means for clinical diagnosis or patient management decisions. [facility] is authorized under Clinical Laboratory Improvement Amendments (CLIA) to perform high- complexity testing. When diagnostic testing is negative, the possibility of a false negative should be considered in the context of a patient's recent exposures and the presence of clinical signs and symptoms consistent with SARS-CoV-2. Performed By: #### H OMCY #### [facility] [address] [place] [address] Dr. Christian Lebron TROPONIN, HIGH SENSITIVITYon 02-01-2021 HSTROP 15.4 pg/mL Normal 4.0-35.5 [facility] Comment on above: Result Comment: CUT- OFF POINTS HAVE BEEN ESTABLISHED BASED ON THE FOURTH UNIVERSAL DEFINITIONS OF MYOCARDIAL INFARCTION. THE UPPER REFERENCE LIMIT (URL) OF TROPONIN, DEFINED THE 99TH PERCENTILE OF cTnI DISTRIBUTION IN A REFERENCE POPULATION, HAS BEEN CONFIRMED THE DECISION THRESHOLD FOR [place] DIAGNOSIS. Performed By: #### H STROPN #### [facility] [address] [place], [place] [id number] Lauri Nascimento XR CHEST 2 Von 02-01-2021 [...] by: YAQUELIN ANSARI Date: 2021-01-31 22:40 Normal [facility] XR PELVIS 1_2 VIEWSon 2020 XR PELVIS [...] YAQUELIN ANSARI Date: 2021-01-31 22:41 Normal [facility] BNPon 01-31-2021 Natriuretic peptide B (Bld) [Mass/Vol] 1162.0 pg/mL Normal <=1,800.0 [facility] Comment on above: Performed By: #### H OMCY #### [facility] [address] [place] [address] Dr. Christian Lebron CBC AUTO DIFFon 01-31-2021 BASO # 0.0 103/ul Normal 0.0-0.1 [facility] Comment on above: Performed By: #### E RUR #### [facility] [address] [place] [address] Lauri Nascimento Basophils/100 WBC (Bld) 0.4 % Normal 0.2-2.0 [facility] Comment on above: Performed By: #### E RUR #### [facility] [address] [place] [address] Lauri Pily EO # 0.1 103/ul Normal 0.0-0.7 [facility] Comment on above: Performed By: #### E RUR #### [facility] [address] [place], [place] [id number] Lauri Pily Eosinophils/100 WBC (Bld) 0.9 % Normal 0.9-7.0 [facility] Comment on above: Performed By: #### E RUR #### [facility] [address] [place] [address] Lauri Pliy Erythrocyte distribution width (RBC) [Ratio] 13.8 % Normal 11.0-15.0 [facility] Comment on above: Performed By: #### E RUR #### [facility] [address] [place] [address] Lauri Pily Hematocrit (Bld) [Volume fraction] 42.8 % Normal 36.0-48.0 [facility] Comment on above: Performed By: #### E RUR #### [facility] [address] [place] [address] Lauri Pily Hemoglobin (Bld) [Mass/Vol] 13.8 g/dL Normal 12.0-16.0 [facility] Comment on above: Performed By: #### E RUR #### [facility] [address] [place] [address] Lauri Pily IG # 0.04 10e3/ul Critically high 0.00-0.03 [facility] Comment on above: Performed By: #### E RUR #### [facility] [address] [place] [address] Lauri Pily IG % 0.4 % Normal 0.0-0.5 [facility] Comment on above: Performed By: #### E RUR #### [facility] [address] [place], [place] [id number] Lauri Pily LYMPH # 2.3 103/ul Normal 1.2-3.8 [facility] Comment on above: Performed By: #### E RUR #### [facility] [address] [place], [place] [id number] Lauri Pily Lymphocytes/100 WBC (Bld) 21.7 % Normal 20.5-60.0 [facility] Comment on above: Performed By: #### E RUR #### [facility] [address] [place], [place] [id number] Lauri Nascimento MANUAL DIFF REQ NO Normal [facility] Comment on above: Performed By: #### E RUR #### [facility] [address] [place], [place] [id number] Lauri Nascimento MCH (RBC) [Entitic mass] 28.9 pg Normal 26.7-34.0 [facility] Comment on above: Performed By: #### E RUR #### [facility] [address] [place] [address] Lauri Nascimento MCHC (RBC) [Mass/Vol] 32.2 g/dL Normal 29.9-35.2 [facility] Comment on above: Performed By: #### E RUR #### [facility] [address] [place] [address] Lauri Nascimento MCV (RBC) [Entitic vol] 89.7 fL Normal 81.0-99.0 [facility] Comment on above: Performed By: #### E RUR #### [facility] [address] [place], [place] [id number] Lauri Nascimento MONO # 0.9 103/ul Critically high 0.3-0.8 [facility] Comment on above: Performed By: #### E RUR #### [facility] [address] [place] [address] Lauri Nascimento Monocytes/100 WBC (Bld) 8.0 % Normal 1.7-12.0 [facility] Comment on above: Performed By: #### E RUR #### [facility] [address] [place], [place] [address] Laurilaura Nascimento NEUT # 7.4 103/ul Critically high 1.4-6.5 [facility] Comment on above: Performed By: #### E RUR #### [facility] [address] [place], [place] [address] Lauri Nascimento Neutrophils/100 WBC (Bld) 68.6 % Normal 43.0-75.0 [facility] Comment on above: Performed By: #### E RUR #### [facility] [address] [place] [address] Lauri Nascimento Platelet mean volume (Bld) [Entitic vol] 11.8 fL Normal 9.5-13.5 [facility] Comment on above: Performed By: #### E RUR #### [facility] [address] [place] [address] Lauri Nascimento PLT 190 103/ul Normal 150-450 [facility] Comment on above: Performed By: #### E RUR #### [facility] [address] [place] [address] Lauri Nascimento RBC 4.77 106/ul Normal 4.20-5.40 [facility] Comment on above: Performed By: #### E RUR #### [facility] [address] [place] [address] Lauri Nascimento WBC 10.8 103/ul Normal 4.0-11.0 [facility] Comment on above: Performed By: #### E RUR #### [facility] [address] [place] [address] Lauri Gavinen PROF 14(COMP METB)on 021 Albumin [Mass/Vol] 3.6 g/dL Normal 3.5-5.0 [facility] Comment on above: Performed By: #### H OMCY #### [facility] [address] [place] [address] Dr. Christian Lebron Albumin/Globulin [Mass ratio] 1.0 {ratio} Normal [facility] Comment on above: Performed By: #### H OMCY #### [facility] [address] [place] [address] Dr. Christian Lebron ALP [Catalytic activity/Vol] 74 U/L Normal 38-126 [facility] Comment on above: Performed By: #### H OMCY #### [facility] [address] [place] [address] Dr. Christian Lebron ALT [Catalytic activity/Vol] 19 U/L Normal 9-52 [facility] Comment on above: Performed By: #### H OMCY #### [facility] [address] [address] [address] Christian Lebron Anion gap [Moles/Vol] 11.7 mmol/L Normal Th [facility] Comment on above: Performed By: #### H OMCY #### [facility] [address] [address] [address] Christian Lebron AST [Catalytic activity/Vol] 16 U/L Normal 14-36 [facility] Comment on above: Performed By: #### H OMCY #### [facility] [address] [address] [address] Christian Lebron Bilirubin [Mass/Vol] 0.4 mg/dL Normal 0.2-1.3 [facility] Comment on above: Performed By: #### H OMCY #### [facility] [address] [address] [address] Christian Lebron Calcium [Mass/Vol] 9.3 mg/dL Normal 8.4-10.2 [facility] Comment on above: Performed By: #### H OMCY #### [facility] [address] [address] [address] Christian Lebron Chloride [Moles/Vol] 107 mmol/L Normal 98-107 [facility] Comment on above: Performed By: #### H OMCY #### [facility] [address] [address] [address] Christian Lebron CO2 [Moles/Vol] 26.0 mmol/L Normal 22.0-30.0 [facility] Comment on above: Performed By: #### H OMCY #### [facility] [address] [address] [address] Christian Lebron Creatinine [Mass/Vol] 1.63 mg/dL Critically high 0.52-1.04 [facility] Comment on above: Performed By: #### H OMCY #### [facility] [address] [address] [address] Christian Lebron EGFR-AF NAMIBIAN 37 mL/min/1.73m2 Critically low >=60 [facility] Comment on above: Performed By: #### H OMCY #### [facility] [address] [address] [address] Christian Lebron EGFR-NON AF NAMIBIAN 30 mL/min/1.73m2 Critically low >=60 [facility] Comment on above: Performed By: #### H OMCY #### [facility] [address] [address] [address] Christian Lebron Globulin (S) [Mass/Vol] 3.7 g/dL Normal [facility] Comment on above: Performed By: #### H OMCY #### [facility] [address] [address] [address] Christian Lebron Glucose [Mass/Vol] 96 mg/dL Normal 74-106 [facility] Comment on above: Performed By: #### H OMCY #### [facility] [address] [address] [address] Christian Lebron Potassium [Moles/Vol] 3.7 mmol/L Normal 3.4-5.0 [facility] Comment on above: Performed By: #### H OMCY #### [facility] [address] [address] [address] Christian Lebron Protein [Mass/Vol] 7.3 g/dL Normal 6.1-8.2 [facility] Comment on above: Performed By: #### H OMCY #### [facility] [address] [address] [address] Christian Lebron Sodium [Moles/Vol] 141 mmol/L Normal 137-145 [facility] Comment on above: Performed By: #### H OMCY #### [facility] [address] [address] [address] Christian Lebron Urea nitrogen [Mass/Vol] 31.0 mg/dL Critically high 7.0-17.0 [facility] Comment on above: Performed By: #### H OMCY #### [facility] [address] [address] [address] Christian Lebron Urea nitrogen/Creatinine [Mass ratio] 19.0 mg/mg Normal [facility] Comment on above: Performed By: #### H OMCY #### [facility] [address] [place] [address] Dr. Christian Lebron PROTIMEon 01-31-2021 INR Coag (PPP) [Relative time] {INR} Normal [facility] Comment on above: Performed By: #### H OMCY #### [facility] [address] [place] [address] Dr. hCristian Lebron INR GUIDELINES SEE BELOW Normal [facility] Comment on above: Result Comment: EVER RED INR: 2.0 - 3.0 CONDITIONS NOT LISTED BELOW 2.5 - 3.5 FOR PROSTHETIC HEART VALVE REPLACEMENT 2.5 - 3.5 RECURRENT THROMBOSIS Performed By: #### H OMCY #### [facility] [address] [place] [address] Dr. Christian Lebron PT Coag (PPP) [Time] 10.0 s Normal 9.0-11.6 [facility] Comment on above: Performed By: #### H OMCY #### [facility] [address] [place] [address] Dr. Christian Lebron PTTon 01-31-2021 aPTT Coag (Bld) [Time] 28.2 s Normal 22.3-36.2 Th [facility] Comment on above: Performed By: #### H OMCY #### [facility] [address] [place] [address] Dr. Christian Lebron TROPONIN, HIGH SENSITIVITYon 01-31-2021 HSTROP 15.5 pg/mL Normal 4.0-35.5 [facility] Comment on above: Result Comment: CUT- OFF POINTS HAVE BEEN ESTABLISHED BASED ON THE FOURTH UNIVERSAL DEFINITIONS OF MYOCARDIAL INFARCTION. THE UPPER REFERENCE LIMIT (URL) OF TROPONIN, DEFINED THE 99TH PERCENTILE OF cTnI DISTRIBUTION IN A REFERENCE POPULATION, HAS BEEN CONFIRMED THE DECISION THRESHOLD FOR [place] DIAGNOSIS. Performed By: #### H OMCY #### [facility] [address] [place] [address] Dr. Christian Lebron TSHon 01-31-2021 TSH 3.025 uIU/mL Normal 0.470-4.68 0 [facility] Comment on above: Performed By: #### H OMCY #### [facility] [address] [place] [address] Dr. Christian Lebron TSH RANGE SEE BELOW Normal [facility] Comment on above: Result Comment: <0.3 4 UIU/ml HYPERTHYROID 0.34-5.60 UIU/ml EUTHYROID >5.60 UIU/ml HYPOTHYROID Performed By: #### H OMCY #### [facility] [address] [address] [address] Christian Lebron Vital Signs Date Time Vital Sign Value Performing Clinician Facility 03-17-2024 11:21-0400 Body height 167.6 cm Abdulaziz Alvarez MD Work Phone: [facility] 03-17-2024 11:21-0400 Diastolic blood pressure 52 mm[Hg] Abdulaziz Alvarez MD Work Phone: [facility] 03-17-2024 11:21-0400 Heart rate 79 /min Abdulaziz Alvarez MD Work Phone: [facility] 03-17-2024 11:21-0400 Systolic blood pressure 130 mm[Hg] Abdulaziz Alvarez MD Work Phone: [facility] 11-14-2023 17:04-0500 Body height 162.6 cm Ismael Aquino DPM Work Phone: [facility] 11-14-2023 17:04-0500 Body mass index (BMI) [Ratio] 29.52 kg/m2 Ismael Aquino DPM Work Phone: [facility] 11-14-2023 17:04-0500 Body weight 78.02 kg Ismael Aquino DPM Work Phone: [facility] 11-14-2023 17:04-0500 Diastolic blood pressure 80 mm[Hg] Ismael Aquino DPM Work Phone: [facility] 11-14-2023 17:04-0500 Heart rate 77 /min Ismael Aquino DPM Work Phone: [facility] 11-14-2023 17:04-0500 Systolic blood pressure 123 mm[Hg] Ismael Aquino [facility] Work Phone: [facility] 09-26-2023 12:00-0500 Body height 167.64 cm Sergio Escudero Other [employer] Other 09-26-2023 12:00-0500 Body mass index (BMI) [Ratio] 25.01 kg/m2 Sergio Escudero Other [employer] Other 09-26-2023 12:00-0500 Body temperature 96.1 [degF] Sergio Escudero Other [employer] Other 09-26-2023 12:00-0500 Body weight 70.31 kg Sergio Escudero Other [employer] Other 09-26-2023 12:00-0500 Diastolic blood pressure 62 mm[Hg] Sergio Escudero Other [employer] Other 09-26-2023 12:00-0500 SaO2% (BldA) [Mass fraction] 99 % Sergio Escudero Other [employer] Other 09-26-2023 12:00-0500 Systolic blood pressure 120 mm[Hg] Sergio Escudero Other [employer] Other 03-20-2023 11:30-0400 Body height 167.64 cm Raysa Robins Other [employer] Other 03-20-2023 11:30-0400 Body mass index (BMI) [Ratio] 25.01 kg/m2 Raysa Robins Other [employer] Other 03-20-2023 11:30-0400 Body temperature 97.8 [degF] Raysa Robins Other [employer] Other 03-20-2023 11:30-0400 Body weight 70.31 kg Raysa Robins Other [employer] Other 03-20-2023 11:30-0400 Diastolic blood pressure 86 mm[Hg] Raysa Robins Other [employer] Other 03-20-2023 11:30-0400 SaO2% (BldA) [Mass fraction] 99 % Raysa Robins Other [employer] Other 03-20-2023 11:30-0400 Systolic blood pressure 122 mm[Hg] Raysa Robins Other [employer] Other 09-21-2022 12:15-0500 Body height 167.64 cm Abdulaziz Alvarez MD Work Phone: [facility] [employer] 250 DO Work Phone: 09-21-2022 12:15-0500 Body mass index (BMI) [Ratio] 24.05 kg/m2 Abdulaziz Alvarez MD Work Phone: [facility] 250 DO Work Phone: 09-21-2022 12:15-0500 Body surface area Derived from formula 1.76 m2 Abdulaziz Alvarez MD Work Phone: [facility] 250 DO Work Phone: 09-21-2022 12:15-0500 Body weight 67.59 kg Abdulaziz Alvarez MD Work Phone: [facility] 250 DO Work Phone: 09-21-2022 12:15-0500 Diastolic blood pressure 78 mm[Hg] Abdulaziz Alvarez MD Work Phone: [facility] 250 DO Work Phone: 09-21-2022 12:15-0500 Heart rate 84 /min Abdulaziz Alvarez MD Work Phone: [facility] 250 DO Work Phone: 09-21-2022 12:15-0500 Systolic blood pressure 126 mm[Hg] Abdulaziz Alvarez MD Work Phone: [facility] DO Work Phone: 09-12-2022 11:45-0500 Body height 167.64 cm Sergio Escudero Other [employer] Other 09-12-2022 11:45-0500 Body mass index (BMI) [Ratio] 27.44 kg/m2 Sergio Escudero Other [employer] Other 09-12-2022 11:45-0500 Body temperature 97.8 [degF] Sergio Escudero Other [employer] Other 09-12-2022 11:45-0500 Body weight 77.11 kg Sergio Escudero Other [employer] Other 09-12-2022 11:45-0500 Diastolic blood pressure 68 mm[Hg] Sergio Escudero Other [employer] Other 09-12-2022 11:45-0500 SaO2% (BldA) [Mass fraction] 98 % Sergio Escudero Other [employer] Other 09-12-2022 11:45-0500 Systolic blood pressure 116 mm[Hg] Sergio Escudero Other [facility] [employer] Other 08-14-2022 12:47-0500 Diastolic blood pressure 71 mm[Hg] DO Edward Bernstein Work Phone: [facility] 08-14-2022 12:47-0500 Systolic blood pressure 177 mm[Hg] DO Edward Bernstein Work Phone: [facility] 08-14-2022 12:00-0500 Body temperature 98.3 [degF] DO Edward Bernstein Work Phone: [facility] 08-14-2022 12:00-0500 Heart rate 79 /min DO Edward Bernstein Work Phone: [facility] 08-14-2022 12:00-0500 Respiratory rate 16 /min DO Edward Bernstein Work Phone: [facility] 08-14-2022 12:00-0500 SaO2% (BldA) [Mass fraction] 98 % DO Edward Bernstein Work Phone: [facility] 08-14-2022 04:50-0500 Body weight 66.6 kg DO Edward Bernstein Work Phone: [facility] 08-13-2022 20:45-0500 Body temperature 97.8 [degF] DO Edward Bernstein Work Phone: [facility] 08-13-2022 20:45-0500 Diastolic blood pressure 68 mm[Hg] DO Edward Bernstein Work Phone: [facility] 08-13-2022 20:45-0500 Heart rate 80 /min DO Edward Bernstein Work Phone: [facility] 08-13-2022 20:45-0500 Respiratory rate 20 /min DO Edward Bernstein Work Phone: [facility] 08-13-2022 20:45-0500 SaO2% (BldA) [Mass fraction] 99 % DO Edward Bernstein Work Phone: [facility] 08-13-2022 20:45-0500 Systolic blood pressure 188 mm[Hg] DO Edward Bernstein Work Phone: [facility] 08-13-2022 11:50-0500 Body height 167.64 cm DO Edward Bernstein Work Phone: [facility] 08-13-2022 06:00-0500 Body weight 68.8 kg DO Edward Bernstein Work Phone: [facility] Encounters Encounter Date Encounter Type Care Provider Facility Start: 04-24-2024 End: 04-24-2024 ambulatory Adin Rivas [facility] Work Phone: Start: 04-24-2024 End: 04-24-2024 Departed Referred DO Adin Evelyn Work Phone: [facility] Start: 04-01-2024 End: 04-01-2024 ambulatory KALI Shruthi MAHARAJ Not Available Start: 03-23-2024 End: 03-23-2024 ambulatory ADIN RIVAS Not Available Start: 03-17-2024 End: 03-17-2024 ambulatory [facility] Start: 03-17-2024 End: 03-17-2024 Encounter for other preprocedural examination [facility] Start: 03-17-2024 End: 03-17-2024 Office outpatient visit 25 minutes Abdulaziz Alvarez MD Work Phone: [facility] Comment on above: Pre-op evaluation (P rimary Dx); Primary hypertension; Hyperlipidemia, unspecified hyperlipidemia type; Stenosis of carotid artery, unspecified laterality; Former smoker; [facility] resident; History of syncope Start: 03-17-2024 End: 03-17-2024 Preprocedural examination done Abdulaziz Alvarez MD Work Phone: [facility] Work Phone: Start: 03-13-2024 End: 03-13-2024 ambulatory PILY Rubalcava PARI Not Available Start: 01-29-2024 End: 01-29-2024 ambulatory KALI B NICKO Not Available Start: 01-21-2024 End: 01-21-2024 ambulatory [...] outpatient vi sit 15 minutes Sergio Escudero [facility] Start: 09-26-2023 End: 09-26-2023 Patient encounter procedure II Kali Maharaj Work Phone: [facility] Start: 09-26-2023 End: 09-26-2023 ambulatory II Kali Maharaj Work Phone: [facility] [employer] Other Start: 03-20-2023 End: 03-20-2023 Patient encounter procedure Raysa Robins [facility] Vascular Surgery Start: 03-20-2023 End: 03-20-2023 ambulatory II Kali Maharaj Work Phone: [facility] [employer] Other Start: 03-13-2023 ambulatory Abdulaziz Alvarez Facility : Start: 11-10-2022 Chart Update Abdulaziz Alvarez MD Work Phone: [facility] DO Work Phone: Start: 10-30-2022 Telephone encounter Abdulaziz day MD Work Phone: [facility] 600 DO Work Phone: Start: 10-22-2022 Patient encounter procedure Abdulaziz Alvarez MD Work Phone: [facility] 250 DO Work Phone: Start: 09-21-2022 ambulatory Abdulaziz Alvarez Facility :[id number] Start: 09-21-2022 Office outpatient vi sit 25 minutes Abdulaziz Alvarez MD Work Phone: [facility] 250 DO Work Phone: Start: 09-18-2022 Chart Update Abdulaziz Alvarez MD Work Phone: [facility] DO Work Phone: Start: 09-14-[address] Kali Maharaj II Facility:[id number] Start: 09-12-2022 End: 09-12-2022 ambulatory Sergio Escudero Other [facility] [employer] Other Start: 09-12-2022 Office outpatient vi sit 15 minutes Sergio Escudero [facility] Vascular Surgery Start: 08-14-2022 ambulatory Abdulaziz Alvarez Facility :[id number] Start: 08-14-2022 Patient encounter procedure DO Edward Bernstein Work Phone: [facility] Start: 08-13-2022 End: 08-13-2022 ambulatory DO Edward Bernstein Work Phone: [facility] Work Phone: Start: 08-13-2022 End: 08-13-2022 Patient encounter procedure DO Edward Bernstein Work Phone: [facility] Start: 08-12-2022 ambulatory Abdulaziz Alvarez Facility :[id number] Start: 08-11-2022 ambulatory Abdulaziz Alvarez Facility :[id number] Start: 08-10-2022 ambulatory Abdulaziz Alvarez Facility :[id number] Start: 08-10-2022 End: 08-14-2022 Evaluation and management of inpatient DO Edward Bernstein Work Phone: [facility] Start: 12-26-2021 End: 12-26-2021 ambulatory Jhonatan Oakes Other [facility] Other Start: 12-26-2021 Telephone encounter Jhonatan Oakes [facility] Vascular Surgery Start: 2021 End: 08-24-2021 ambulatory YULIA MCCRAY Facility:[facility]1 Start: 07-10-2021 End: 07-11-[address] KALI MAHARAJ Facility:[facility]1 Start: 07-03-[address] KALI MAHARAJ Facilit y:[facility]1 Start: 02-08-2021 End: 03-08-[address] KALI MAHARAJ Facility:[facility]1 Start: 02-01-2021 End: 02-02-2021 ambulatory LULU FIREDMAN Facility:[facility]1 Start: 01-31-2021 End: 02-01-2021 ambulatory UNKNOWN PROVIDER Facility:[facility] Start: 12-05-[address] MAX CARBONE Fac ility:[facility]1 Start: 09-04-2018 End: 09-05-2018 Patient encounter procedure DEFAULT PHYSICIAN Facility:[facility] Procedures Date Procedure Procedure Detail Performing [...] procedure 03/17/2025 11:00 AM EDT [facility] [address] [place] [address] Abdulaziz Alvarez MD [address] [facility], [address] [place] [address] [facility] Start: 02-17-2024 End: 02-17-2024 Patient encounter procedure 02/17/2024 1:15 PM EDT Office Visit [facility] [address] [place] [address] Kali Maharaj MD [address] [place] [address] [facility] Start: 01-23-2024 End: 01-23-2024 Patient encounter procedure 01/23/2024 4:10 PM EDT Procedure Visit [facility] [address] [place] [address] Ismael Aquino, DPM [address] [facility] [address] [place] [address] [facility] Start: 12-10-2023 End: 12-10-2023 Patient encounter procedure 12/10/2023 2:00 PM EST Office Visit [facility] [address] [place] [address] Yulia Mccray MD [address] [facility] [address] [place] [address] [facility] Start: 11-21-2023 Medicare Annual Wellness (AWV) Medicare Annual Wellness (AWV) [facility] Start: 11-14-2023 End: 11-14-2023 Patient encounter procedure 11/14/2023 4:50 PM EST Procedure Visit [facility] [address] [facility] [address] [place] [address] Ismael Aquino, DPM [address] [address] [facility] Start: 11-11-2023 End: 11-11-2023 Patient encounter procedure 11/11/2023 1:50 PM EST Procedure Visit [facility] [address] [place] [address] Ismael Aquino DPM [address] [address] [facility] Start: 08-10-2023 Echocardiography Echocardiogram [facility] Start: 06-07-2023 COVID-19 Vaccine ( season) COVID-19 Vaccine ( season) [facility] Start: 03-20-2023 Doppler ultrasonography of bilateral carotid arteries US carotid doppler BI [facility] Start: 03-20-2023 US.doppler Carotid arteries - bilateral [place] [facility] Start: 03-13-2023 FUV, Provider: Abdulaziz Alvarez, Status: Pen, Time: 11:50 AM FUV, Provider: Abdulaziz Alvarez, Status: Pen, Time: 11:50 AM [facility] 250 DO Work Phone: Start: 09-21-2022 FUV, Provider: Abdulaziz Alvarez, Status: Pen, Time: 11:50 AM FUV, Provider: Abdulaziz Alvarez, Status: Pen, Time: 11:50 AM [facility] 250 DO Work Phone: Start: 08-14-2022 [facility] Start: 08-13-2022 [facility] Start: 08-12-2022 Referral to vascular surgeon [facility] Start: 08-10-2022 Hospital admission [facility] Start: 08-10-2022 [facility] Start: 08-30-2020 Zoster Vaccines (2 of 2) Zoster Vaccines (2 of 2) [facility] Start: 2000 RSV patients and/or patients aged 60+ years (1 - 1-dose 60+ series) RSV patients and/or patients aged 60+ years (1 - 1-dose 60+ series) [facility] Start: 1962 DTaP/Tdap/Td Vaccines (1 - Tdap) DTaP/Tdap/Td Vaccines (1 - Tdap) [facility] Start: 1940 Creatinine measurement Creatinine Level [facility] Start: 1940 Lipid panel Lipid Panel [facility] Start: 1940 Medicare Annual Wellness Visit Medicare Annual Wellness Visit (AWV) [facility] Start: 1940 Potassium measurement Potassium Level [facility] Start: 1940 Thyroid stimulating hormone measurement TSH Level [facility] Patient Education Carotid Artery Disease Carotid Artery Disease (DC) [facility] Work Phone: Patient referral [facility] Work Phone: Immunizations Immunization Date Immunization Notes Care Provider Tito gaviria 08-12-2023 Influenza, High-dose Seasonal, Quadrivalent, Preservative Free Ismael Aquino DPM Work Phone: [facility] 09-21-2022 Moderna SARS-CoV-2 Booster Vaccination Ismael Aquino DPM Work Phone: [facility] 07-27-2022 Fluzone High-Dose Quadrivalent 0.7 ML Intramuscular Suspension Prefilled Syringe Abdulaziz Alvarez MD Work Phone: [facility] 05-08-2022 Moderna COVID-19 Vac cine 100 MCG/0.5ML Intramuscular Suspension Abdulaziz Alvarez MD Work Phone: [facility] 250 DO Work Phone: 08-07-2021 influenza, high dose seasonal, preservative-free Abdulaziz Alvarez MD Work Phone: [facility] 250 DO Work Phone: 08-04-2021 Moderna COVID-19 Vac cine 100 MCG/0.5ML Intramuscular Suspension Abdulaziz Alvarez MD Work Phone: [facility] 250 DO Work Phone: 11-23-2020 Moderna COVID-19 Vac cine 100 MCG/0.5ML Intramuscular Suspension Abdulaziz Alvarez MD Work Phone: [facility] 250 DO Work Phone: 10-21-2020 Moderna COVID-19 Vac cine 100 MCG/0.5ML Intramuscular Suspension Abdulaziz Alvarez MD Work Phone: [facility] 250 DO Work Phone: 07-05-2020 zoster vaccine recombinant Abdulaziz Alvarez MD Work Phone: [facility] 07-01-2020 influenza, high dose seasonal, preservative-free Abdulaziz Alvarez MD Work Phone: [facility] 250 DO Work Phone: 07-01-2020 Influenza, High-dose Seasonal, Quadrivalent, Preservative Free Ismael Aquino DPM Work Phone: [facility] 06-22-2019 Seasonal trivalent influenza vaccine, adjuvanted, preservative free Abdulaziz Alvarez MD Work Phone: [facility] 07-21-2018 influenza, high dose seasonal, preservative-free Abdulaziz Alvarez MD Work Phone: [facility] 250 DO Work Phone: 06-06-2018 influenza, high dose seasonal, preservative-free Abdulaziz Alvarez MD Work Phone: [facility] 06-18-2017 influenza, high dose seasonal, preservative-free Abdulaziz Alvarez MD Work Phone: [facility] 06-18-2017 pneumococcal polysaccharide vaccine, 23 valent Abdulaziz Alvarez MD Work Phone: [facility] 07-13-2016 influenza, high dose seasonal, preservative-free Abdulaziz Alvarez MD Work Phone: [facility] 07-23-2015 pneumococcal conjuga te vaccine, 13 valent Abdulaziz Alvarez MD Work Phone: [facility] 07-07-2015 influenza, injectabl e, quadrivalent, preservative free Ismael Aquino DPM Work Phone: [facility] 07-03-2013 influenza, seasonal, injectable, preservative free Ismael Aquino DPM Work Phone: [facility] 10-07-2010 pneumococcal polysaccharide vaccine, 23 valent Ismael Aquino DPM Work Phone: [facility] 07-20-2010 seasonal influenza, intradermal, preservative free Ismael Aquino DPM Work Phone: [facility] Payers Date Payer Category Payer Medicaid MEDICAID MEDICAI D [id number] 2023-Present [address] [place] [address] [id number] 2023 Medicaid [id number] 2017 Medicare [id number]. [id number] 1959 Private Health Insurance [id number] 1959 Self-pay 1940 Unknown [id number] 2.16.840.1.716131.3.579.2. 647 1940 Unknown [id number] 2.16.840.1.062810.3.579.2. 732 1940 Unknown [id number] 2.16.840.1.416743.3.579.2. 593 1940 Unknown [id number] 2.16.840.1.647511.3.579.2. 593 1940 Unknown [id number] 2.16.840.1.096391.3.579.2. 593 1940 Unknown [id number] 2.16.840.1.978141.3.579.2. 593 1940 Unknown [id number] 2.16.840.1.603382.3.579.2. 593 1940 Unknown [id number] 2.16.840.1.681477.3.579.2. 593 1940 Unknown [id number] 2.16.840.1.295458.3.579.2. 593 1940 Unknown [id number] 2.16.840.1.631508.3.579.2. 356 1940 Unknown [id number] 2.16.840.1.342595.3.579.2. 356 1940 Unknown [id number] 2.16.840.1.567048.3.579.2. 356 1940 Unknown [id number] 2.16.840.1.115585.3.579.2. 356 1940 Unknown [id number] 2.16.840.1.355346.3.579.2. 356 1940 Unknown [id number] 2.16.840.1.280823.3.579.2. 356 1940 Unknown [id number] 2.16.840.1.895532.3.579.2. 356 1940 Unknown [id number] 2.16.840.1.597041.3.579.2. 356 1940 Unknown [id number] 2.16.840.1.427468.3.579.2. 1244 1940 Unknown [id number] 2.16.840.1.912479.3.579.2. 1259 1940 Unknown [id number] 2.16.840.1.615345.3.579.2. 1259 1940 Unknown [id number] 2.16.840.1.268413.3.579.2. 1259 1940 Unknown [id number] 2.16.840.1.072520.3.579.2. 1259 1940 Unknown [id number] 2.16.840.1.924191.3.579.2. 1259 1940 Unknown [id number] 2.16.840.1.411810.3.579.2. 1259 1940 Unknown [id number] 2.16.840.1.682202.3.579.2. 1259 1940 Unknown [id number] 2.16.840.1.220386.3.579.2. 1259 Medicare Medicare [id number] Unknown Unknown Insurance No Card [id number] Unknown [id number] 2.16.840.1.791646.3.579.2. 531 Unknown [id number] 2.16.840.1.866051.3.579.2. 531 Social History Date Type Detail Facility Start: 10-16-2023 End: 03-17-2024 Sex Assigned At [facility] Other Start: 08-13-2022 End: 08-13-2022 Tobacco smoking status SCIS Smoker (finding) [facility] Start: 1940 Sex Assigned At Female F [facility] Start: 10-16-2023 End: 03-17-2024 Consumes alcohol occasionally Consumes alcohol occasionally -[facility] 250 DO Work Phone: Comment on above: coffee 1 cup daily; 1 pack per week; Start: 10-07-1987 [facility] Start: 10-07-1987 History of tobacco use Cigarette Smo ker [facility] History of tobacco use Passive smoker [facility] Start: 04-08-2023 End: 03-17-2024 Tobacco use and exposure Smokeless tobacco non-user [facility] Start: 10-16-2023 End: 11-14-2023 Alcohol intake Lifetime non-drinker (finding) [facility] Start: 1940 Sex Assigned At Not on file [facility] Start: 11-14-2023 Alcohol Comment caffeine intak e: 1-2 cups per day [facility] Start: 03-17-2024 [facility] Work Phone: Start: 03-17-2024 Alcoholic beverage intake Current drinker of alcohol (finding) [facility] Work Phone: Start: 03-17-2024 Alcohol Comment every so often [facility] Work Phone: Start: 03-07-2024 End: 03-17-2024 Exposure to SARS-CoV-2 (event) Not sure [facility] Goals Date Patient Goal Desired Activity /State Functional Status Date Assessment Result Facility 08-14-2022 Functional status Patient at Baseline [facility] Work Phone: 08-10-2022 Functional status Patient at Baseline [facility] Work Phone: Mental Status Date Assessment Result Facility 08-14-2022 Cognitive function Cognitive Sta tus Patient at Baseline [facility] Work Phone: 08-10-2022 Cognitive function Cognitive Sta tus Patient at Baseline [facility] Work Phone: Clinical Notes 08-10-2022 to [...] the direction and in the presence of Abdulzaiz Alvarez MD. Provider Attestation - Scribe documentation All medical record entries made by the Scribe were at my direction and personally dictated by me. I have reviewed the chart and agree that the record accurately reflects my personal performance of the history, physical exam, discussion and plan. documented in this encounter [facility] Work Phone: 03-17-2024 Instructions Cait Morrow [...] year Same medications documented in this encounter [facility] Work Phone: 11-14-2023 History of Presen [...] Ismael Aquino DPM documented in this encounter [facility] 09-26-2023 Evaluation note Encounter Date Diagnosis Assessment Notes Sep, Asymptomatic stenosis of right carotid artery (ICD-10 - I65.21) I recommend seeing this patient back in 1 year. I admonished her for smoking and offered her free resources to quit by the [facility]. She refused. There is no indication for any surgical intervention at this time. [facility] Other 06-14-2023 Evaluation note* Encounter Date Diagnosis [...] issues prior to her next scheduled appointment. [facility] Other 12-07-2022 Evaluation note* Encounter Date Diagnosis [...] for results in the next few weeks. [facility] Other 11-08-2022 Discharge summary Author Dee Kenney [facility] August 14, 2022 1:38pm Note Date/Time August 14, 2022 1 :13pm [facility] [address] [place] [address] Discharge Summary Signed Patient: Carley Quintanilla MR#: [id number] : 1940 Acct:[id number] Age/Sex: 81 / F Adm Date: 2 Loc: Room: [address] [place] [address]: Dee Kenney MD Copies to: [...] Regular Additional Instructions: You should have a [employer] 30 Day Reconditioner prior to discharge. Instructions: Carotid Artery Disease, [...] <Electronically signed by Dee Kenney MD> 08/14/22 0251 [facility] Work Phone: 1(451) 561-974511-08-2022 Progress note Author Sergio Escudero [facility] August 14, 2022 11:52am Note Date/Time August 14, 2022 1 0:02am [facility] [address] [place] [address] Vascular Surgery Progress Note Signed with Shashi Patient: Carley Quintanilla MR#: [id number] : 1940 Acct:[id number] Age/Sex: 81 / F Adm Date: 2 Loc: Room: 0K1069-4 Type: ADM IN Attending Dr: Dee Kenney [...] signed by Sergio Escudero MD> 08/14/22 1002 [facility] Work Phone: 1(589) 995-618411-07-2022 Progress note Author eDe Kenney [facility] August 13, 2022 12:59pm Note Date/Time August 13, 2022 1 2:44pm [facility] [address] [place] [address] Hospitalist Progress Note Signed Patient: Carley Quintanilla MR#: [id number] : 1940 Acct:[id number] Age/Sex: 81 / F Adm Date: 2 Loc: 4N Room: [address] [place] [address] Type: ADM IN Attending Dr: Dee Kenney [...] signed by Dee Kenney MD> 08/13/22 1259 [facility] Work Phone: 1(779) 455-946911-07-2022 Progress note Author Abdulaziz Alvarez [facility] August 13, 2022 11:03am Note Date/Time August 13, 2022 1 1:03am [facility] [address] [place] [address] Cardiology Progress Note Signed Patient: Carley Quintanilla MR#: [id number] : 1940 Acct:[id number] Age/Sex: 81 / F Adm Date: 2 Loc: Room: [address] [place] [address] Type: ADM IN Attending Dr: Dee Kenney [...] cessation education Documented By: Abdulaziz Alvarez MD, [facility] 2 1100 Signed By: <Electronically signed by MD XENA Alvarez> 08/13/22 1103 [facility] Work Phone: 1(533) 731-964511-07-2022 Consult note Author Sergio Escudero [facility] August 13, 2022 9:29am Note Date/Time August 13, 2022 8 :53am [facility] [address] [place] [address] Vascular Surgery Consult Note Signed Patient: Carley Quintanilla MR#: [id number] : 1940 Acct:[id number] Age/Sex: 81 / F Adm Date: 2 Loc: Room: [address] [place] [address] Type: ADM IN Attending Dr: Dee Kenney [...] signed by Sergio Escudero MD> 08/13/22 0929 [facility] Work Phone: 1([phone]) 997-765411-06-2022 Progress note Author Dee Kenney [facility] August 12, 2022 4:23pm Note Date/Time August 12, 2022 4 :18pm [facility] [address] [place] [address] Hospitalist Progress Note Signed Patient: Carley Quintanilla MR#: [id number] : 1940 Acct:[id number] Age/Sex: 81 / F Adm Date: 2 Loc: 4N Room: 5H7815-1 Type: ADM IN Attending Dr: Dee Kenney [...] Tablet PO 08/11/23 21:59 Not Given QHS [facility] Heparin Sodium (Porcine) 5,000 unit 08/10/22 [...] 1,000 Ml IV 08/10/23 20:29 75 mls/hr .[id number] CARRI Administration Levothyroxine Sodium 75 mcg 08/11/22 [...] PT/OT. Documented By: Dee Kenney MD 08/12/22 4226 Signed By: <Electronically signed by Dee Kenney MD> 08/12/22 1623 [facility] Work Phone: 1(918) 406-864411-06-2022 Progress note Author Abdulaziz Alvarez [facility] August 12, 2022 10:01am Note Date/Time August 12, 2022 1 0:01am [facility] [address] [place] [address] Cardiology Progress Note Signed Patient: Carley Quintanilla MR#: [id number] : 1940 Acct:[id number] Age/Sex: 81 / F Adm Date: 2 Loc: Room: [address] [place] [address] Type: ADM IN Attending Dr: Dee Kenney [...] cessation education Documented By: Abdulaziz Alvarez MD, [facility] 2 0068 Signed By: <Electronically signed by MD XENA Alvarez> 08/12/22 1001 [facility] Work Phone: 1(605) 436-443011-05-2022 Progress note Author Dee Kenney [facility] August 11, 2022 2:19pm Note Date/Time August 11, 2022 2 :15pm [facility] [address] [place] [address] Hospitalist Progress Note Signed Patient: Carley Quintanilla MR#: [id number] : 1940 Acct:[id number] Age/Sex: 81 / F Adm Date: 2 Loc: Room: [address] [place] [address] Type: ADM IN Attending Dr: Dee Kenney [...] 1,000 Ml IV 08/10/23 20:29 75 mls/hr .[id number] CARRI Administration Levothyroxine Sodium 75 mcg 08/11/22 [...] signed by Dee Kenney MD> 08/11/22 1419 [facility] Work Phone: 1(375) 229-190711-05-2022 Consult note Author Abdulaziz Alvarez [facility] August 11, 2022 1:13pm Note Date/Time August 11, 2022 1 :09pm [facility] [address] [place] [address] Cardiology Consult Note Signed Patient: Carley Quintanilla MR#: [id number] : 1940 Acct:[id number] Age/Sex: 81 / F Adm Date: 2 Loc: Room: [address] [place] [address] Type: ADM IN Attending Dr: Dee Kenney MD Copies to: MD Abdulaziz Ortiz II, MD, [facility] Dee Kenney MD~ Cardiology HPI [...] with Dr. Kali Maharaj in [facility]. She has been on diltiazem 360 [...] Lymph # (Auto) 0.9 L (1.00-4.8) x10E3/uL [place] # (Auto) 0.6 (0.0-0.8) x10E3/uL Eos # [...] 1000 ,000 ml @ 75 mls/hr IV .[id number] CARRI Rx#:[id number] Oral 480 / 480 960 / 960 [...] Tobacco use Documented By: Abdulaziz Alvarez MD, [facility] 2 1304 Signed By: <Electronically signed by MD XENA Alvarez> 08/11/22 1313 [facility] Work Phone: 1(519) 471-979811-04-2022 History and physical note Author Dee Kenney [facility] August 10, 2022 8:17pm Note Date/Time August 10, 2022 8 :03pm [facility] [address] [place], [place] [id number] Hospitalist H&P Signed Patient: Carley Quintanilla MR#: [id number] : 1940 Acct:[id number] Age/Sex: 81 / F Adm Date: 2 Loc: Room: [address] [place] [address] Type: ADM IN Attending Dr: Dee Kenney [...] than mentioned in history of presenting illness [facility] Medical History (Updated 08/10/22 @ 20:14 by [...] % (Auto) 9.5 % (.) 08/10/22 17:15 Daggett % (Auto) 5.7 % (.) 08/10/22 17:15 Eos % (Auto) 0.7 % (.) 08/10/22 17:15 Baso % (Auto) 0.5 % (.) 08/10/22 17:15 Neut # (Auto) 8.3 x10E3/uL (1.8-7.7) H 08/10/22 17:15 Lymph # (Auto) 0.9 x10E3/uL (1.00-4.8) L 08/10/22 17:15 [place] # (Auto) 0.6 x10E3/uL (0.0-0.8) 08/10/22 17:15 [...] pH 5.5 (5.0-9.0) 08/10/22 19:20 Ur Specific [place] 1.014 (1.001-1.030) 08/10/22 19:20 Urine Protein Negative [...] <Electronically signed by Dee Kenney MD> 08/10/222016 [facility] [employer] Work Phone: Evaluation noteNo InformationNort [employer] Other Evaluation note* Diagnosis Onset Date Resolution Status KRISTAN (acute kidney injury) ac [place] Bilateral carotid artery disease acute HTN (hypertension) acute Syncope acute Tobacco abuse acute [facility] [employer] Work Phone: Evaluation noteNo assessment information available [facility] Work Phone: Evaluation note* Diagnosis PVD (peripheral vascular disease) ([facility])- Primary Unspecified peripheral vascular disease [...] of tobacco use, presenting hazards to health [facility] resident History of syncope documented in this encounter [facility] Work Phone: History general Narrative - Reported* Type Description Date Medical History CAROTID STENOSIS BILATERAL Medical History hypertension Medical History hypercholesterolemia Medical History acid reflux Surgical History Foot Surgery Hospitalization History hypertension from [facility] at work Other History general Narrative - Reported* Type Description Date Medical History CAROTID STENOSIS BILATERAL Medical History hypertension Medical History hypercholesterolemia Medical History acid reflux Surgical History Foot Surgery Surgical History tonsillectomy Surgical History cataract Hospitalization History hypertension from [facility] at work Other Progress note Author Abdulaziz Alvarez [facility] August 14, 2022 5:26pm Note Date/Time August 14, 2022 5 :26pm [facility] [address] [place] [address] Cardiology Progress Note Signed Patient: Carley Quintanilla MR#: [id number] : 1940 Acct:[id number] Age/Sex: 81 / F Adm Date: 2 Loc: Room: [address] [place] [address] Type: DIS IN Attending Dr: Dee Kenney [...] cessation education Documented By: Abdulaziz Alvarez MD, [facility] 2 1725 Signed By: <Electronically signed by MD XENA Alvarez> 08/14/22 1726 [facility] Work Phone: Summary Purpose Family History [...] Procedures ECG 12 Lead Abdulaziz Alvarez MD [address] [place] [address] 2, [place] [id number] Referral ID Status Reason Start Date Expiration Date V isits Requested Visits Authorized [id number] Authorized 03/17/2024 03/17/2025 1 1 Specialty Diagnoses / Procedures Referred By Michael armstrong Referred To Contact Cardiology Diagnoses Primary hypertension Procedures Follow Up In Cardiology Abdulaziz Alvarez MD [address] [facility] 2, [address] [address] Abdulaziz Alvarez MD [address] [place] [address] 2, [place] [address] [place] [address] Referral ID Status Reason Start Date Expiration Date V isits Requested Visits Authorized [id number] Authorized 03/17/2024 03/17/2025 1 1 Additional Source Comments INFORMATION SOURCE (unrecogn ized section and content) DATE CREATED AUTHOR 09/15/2018 [facility] DATE CREATED AUTHOR AUTHOR'S ORGANIZ ATION 02/02/2021 [facility] [employer] DATE CREATED AUTHOR AUTHOR'S ORGANIZ ATION 08/30/2021 [facility] DATE CREATED AUTHOR AUTHOR'S ORGANIZ ATION 09/22/2021 [facility] dical Specialist DATE CREATED AUTHOR AUTHOR'S ORGANIZ ATION 09/28/2022 [facility] DATE CREATED AUTHOR AUTHOR'S ORGANIZ ATION 03/18/2023 [facility] DATE CREATED AUTHOR AUTHOR'S ORGANIZ ATION 03/18/2024 [facility] DATE CREATED AUTHOR AUTHOR'S ORGANIZ ATION 04/02/2024 [facility] dical Specialists EPIC DATE CREATED AUTHOR AUTHOR'S ORGANIZ ATION 04/29/2024 [facility] ysician Group REASON FOR VISIT (unrecogniz ed section and content) Reason Comments Toenail Care Reason Comments Follow-up Dr. Evelyn CAPPS last s een 09/2022 Specialty Diagnoses / Procedures Referred By Contac t Referred To Contact Diagnoses Pre-op evaluation Procedures ECG 12 Lead Abdulaziz Alvarez MD [address] [facility] 2, [address] [address] Referral ID Status Reason Start Date Expiration Date V isits Requested Visits Authorized [id number] Authorized 03/17/2024 03/17/2025 1 1 Care Teams [...] LPN Other Provider Active Kalina Gilbert , AUTOMATIC SPINNING LATHE SETTER Other Provider Active Jhonatan Oakes MD Other Provider Active Raysa Robins , GASTROENTEROLOGY TEACHER-C Other Provider Active Shelby Unger MD Other Provider Active Sergio Escudero MD Other Provider Active Team Status: Inactive Member Role Status Dates Kali Maharaj II MD Primary Care Provider Active Raysa Robins , GASTROENTEROLOGY TEACHER-C Attending Provider Active Formula Mixer Relationship Specialty Start Date End Date Kail Maharaj MD [address] [place] [place] [address] PCP - [employer] 12/05/22 Kali Maharaj MD [address] [place] [address] PCP - General Internal Medicine 04/10/23 Sarah Lozada, [facility] Television Producer Family Medicine 10/30/23 Formula Mixer Relationship Specialty Start Date End Date Kali Maharaj MD [address] [place] [address] PCP - [employer] 12/05/22 Kali Maharaj MD [address] [place] [address] PCP - General Internal Medicine 04/10/23 Sarah Lozada, [facility] Television Producer Family Medicine 10/30/23 Formula Mixer Relationship Specialty Start Date End Date Kali Maharaj MD [address] [place] [address] PCP - [employer] 12/05/22 Kali Maharaj MD [address] [address] [place] [address] PCP - General Internal Medicine 04/10/23 Sarah Lozada [facility] Television Pro[employer] Family Medicine 10/30/23 Formula Mix[employer] Relationship Specialty Start Date End Date Kali Maharaj MD [address] [facility] [address] [place] [address] PCP - General Internal Medicine 03/17/24 Team [...] BE BASED ON THE PRIMARY CLINICAL RECORDS. [employer] provides no warranty or guarantee of the accuracy or completeness of information in this document.
[2024-05-11 10:16] LABS: Alanine Aminotransferase 20 U/L (14-59); Albumin Globulin Ratio 0.8; Albumin Level 2.9 g/dL (3.4-5.0); Alkaline Phosphatase 90 U/L (46-116); Anion Gap 18.4; Aspartate Amino Transferase 23 U/L (15-37); BUN Creatinine Ratio 32.6; Bilirubin Total 0.3 mg/dL (0.2-1.0); Calcium 9.1 mg/dL (8.5-10.1); Carbon Dioxide 21.8 mmol/L (21.0-32.0); Chloride 101 mmol/L (98-107); Estimated GFR (African America 19 (>=60); Estimated GFR (Non-African Ame 16 (>=60); Globulin 3.6 g/dL; Glucose 91 mg/dL (74-106); Potassium 4.2 mmol/L (3.5-5.1); Sodium 137 mmol/L (136-145); Total Protein 6.5 g/dL (6.4-8.2)
== END 2024-05-11 06:00 | disposition home or self-care (01) ==
LOC: LAB 05:59
PROVIDERS: PCP Internal Medicine; Visit Provider Family Medicine
DX: E03.9 Hypothyroidism, unspecified (principal); E78.2 Mixed hyperlipidemia; I73.9 Peripheral vascular disease, unspecified; N17.9 Acute kidney failure, unspecified
CPT/HCPCS: 36415; 80053

== ENCOUNTER 2024-05-13 02:01 | Outpatient (REF) | payer MEDICARE, MEDICAID, SELFPAY ==
--- OUTSIDE RECORDS SUMMARY | 2024-05-13 02:06 | XMS_ITS | CCD ---
Author Organization [facility] CliniSyid Care Team Providers Care Sports Information Director Name Role Phone PHYSICIAN, DEFAULT Unavailable Unavailable PHYSICIAN, DEFAULT Unavailable Unavailable KALI MAHARAJ Unavailable Unavailable PROVIDER, UNKNOWN Attending Unavailable PROVIDER, UNKNOWN Admitting Unavailable LULU FRIEDMAN Attending Unavailable NICKO, DR MARTINEZ Primary Care Unavailable LULU FRIEDMAN Admitting Unavailable LULU FRIEDMAN Attending Unavailable NICOK, DR MARTINEZ Primary Care Unavailable ELDER, LULU [...] Oakes Other Provider DEEPA Robins Other Provider [phone] MD Shelby Unger Other Provider [phone] MD Sergio Escudero Other Provider MD Abdulaziz [...] Robins Unavailable DYLON Maharaj Primary Care Provider [phone] MD Sergio Escudero Attending Provider DYLON Maharaj Primary Care Provider [phone] DEEPA Robins Attending Provider Kali Maharaj MD Unavailable Kali Maharaj MD Primary Care Provider Neville PARADICHLOROBENZENE TENDER, Sarah Unavailable Unavailable Neville PARADICHLOROBENZENE TENDER, Sarah Unavailable [phone] Kali Maharaj MD Primary Care Provider ABDULAZIZ ALVAREZ Attending Unavailable KALI MAHARAJ Primary Care Unavailable YULIA MCCRAY Attending Unavailable KALI MAHARAJ Attending Unavailable ISMAEL AQUINO Attending Unavailable YULIA MCCRAY Attending Unavailable KALI MAHARAJ Attending Unavailable PILY YAÑEZ Attending Unavailable ADIN RIVAS Attending Unavailable KALI MAHARAJ Attending Unavailable DO Adin Rivas Attending Provider [phone] Adin Rivas Attending Unavailable Adin Rivas Admitting Unavailable Raysa Robins Attending Unavailable Raysa Robins Admitting Unavailable Kali Maharaj Primary Care Unavailable Allergies Allergy Classification Reported Allergen(s) Allergy Type Date of Onset Reaction(s) Facility (1 source) Chocolate Drug allergy (disorder) 02-21-2012 [facility] Repository (1 source) Chocolate Drug allergy (disorder) 02-01-2021 [facility] Repository (1 source) Chocolate Drug allergy (disorder) 05-28-2021 [facility] Repository Medications Current Medications Medication Drug Class(es) [...] Resolved: 09-21-2022 Episodic Other aftercare (1 source) snf (current) use of aspirin; Translations: [PRISON CURRENT USE OF ASPIRIN] Onset: 02-09-2021 Episodic Other aftercare (1 source) Other meterman (current) drug therapy; Translations: [OTH PRISON CURRENT DRUG THERAPY] Onset: 02-09-2021 Episodic Other [...] Test Name Value Interpretation Reference Range Facility [facility] 04-24-2024 L Specimen: [id number] Received: 04/28/24 Status: JAY Hopkins Num: [id number] Spec Type: Cytology Subm Dr: Adin Rivas Tissues: A CYST FLUID (RT OV CYST) Procedures: HE/2, Gross/Micro L4, Cyto Prepstain, PAPSTN Age/ Patient Sex Location Account Attending Physician Carley Quintanilla A 83/F LABELL [id number] Adin Rivas SPEC NUM: [id number] RECD: 04/28/24 STATUS: JAY ANDERSONNadia NUM: [id number] KELLY: 04/24/24 [facility] DR: Adin Rivas ENTERED: 04/28/[address] [facility] [address]: Ibeth,Lab SPEC TYPE: Cytology DEPT: [facility] ENTERED BY: [id number] RECV BY: [id number] ORDERED: HE/2, Gross/Micro L4, Cyto Prepstain, PAPSTN ORDERED: HE/2, Gross/Micro L4, Cyto Prepstain, PAPSTN Pathological Diagnosis Right ovarian cyst: Negative for malignant cells. Clinical Information right ovarian cyst Gross Description Received fresh is 50 ml yellow clear unfixed fluid for cytology said to have been obtained as fluid from Right ovarian cyst. ThinPrep and cell block preparations are prepared for microscopic examination. (NV/nj) CPT Codes 52443 Specimen: [id number] Received: 04/28/24 Status: JAY Hopkins Num: [id number] Spec Type: Cytology Subm Dr: Adin Rivas Tissues: A CYST FLUID (RT OV CYST) Procedures: HE/2, Gross/Micro L4, Cyto Prepstain, PAPSTN Patient: Carley Quintanilla [id number] (Continued) Signed (signature on file) Shelby Gallagher MD 04/29/24 1545 Normal [facility] ECG 12 Leadon 03-17-2024 ECG revealed normal sinus rhythm and normal ECG [facility] Work Phone: US carotid doppler BIon 12-2 US carotid doppler BI [facility] [place] [address] Ultrasound Report Signed Patient: Carley Quintanilla MR#: [id number] : 1940 Acct:[id number] Age/Sex: 83 / F ADM Date: 09/26/23 Loc: [facility] Room: Type: [facility] Attending Dr: Raysa Robins EQUIPMENT ENGINEERShawnaC Ordering Provider: Raysa Robins APRN Date of [...] Sergio Escudero MD09/26/2023 1:51 PM Dictation Location: [place] [address] Tech: Olimpia Corea Transcribed By: ADEEL 09/26/23 1351 Dictated By: Sergio Escudero MD 09/26/23 1350 Signed By: 09/26/23 1351 Normal [facility] Office Visit (Cardiology)on 09-21-2022 [...] quit smoking.; Status:Complete - Retrospective Authorization; Done: [id number] You need to stop smoking. Though it is not easy, more than half of all adult smokers have quit. We encourage you to write down all the reasons you should quit smoking and set a quit date for yourself. Ask us how we can help. You may also call [phone] CircleNOW for free resources and assistance.; Status:Complete - Retrospective Authorization; Done: [id number] Tobacco Use Screening; Status:Complete; Done: [id number] Patient Instructions Please bring all medicines, vitamins, [...] negative for complaint. Vitals Vital Signs Recorded: [id number] 12:15PM Heart Rate84, R Radial Sgyzcrjx741, RUE Axnjbhynn67, RUE Height5 ft 6 in Yljyhg946 lb BMI Ufrznikzqs13.05 kg/m2 BSA Calculated1.76 Tobacco Usea) Yes Patient encouraged to stop using tobacco productsYes PHQ-2 Patient Declined/Screening not indicatedYes (more content not included)... Normal [employer] Tobacco Screening.on 022 Fall risk assessment a) No falls within the last year [facility] [email or web address] 250 DO Work Phone: Tobacco use status CPHS a) Yes [facility] [employer] 250 DO Work Phone: Tobacco Screening. Yes [facility] [employer] ge[employer] 250 DO Work Phone: No Panel Informationon 09-14 [facility] [email or web address] 250 DO Work Phone: Creatinine and Glomerular fi ltration rate.predicted panel (S/P/Bld)Ordered By: Dee Kenney on 08-12-2022 Creatinine [Mass/Vol] 1.16 mg/dL 0.44-1.03 [facility] Estimated glomerular filtrat ion rate (GFR) non- AmericanOrdered By: Dee Kenney on 08-12-2022 GFR/1.73 sq M.predicted among non-blacks MDRD (S/P/Bld) [Vol rate/Area] 45 mL/Min [facility] No Panel InformationOrdered By: Dee Kenney on 08-12-2022 Estimated GFR () 54 mL/Min [facility] Comment on above: GFR estimated refere nce range: According to KDOQI guidelines, <60 ml/min/1.73m2 is sufficient to diagnose a patient with chronic kidney disease. Pharmacy Creatinine Clearance (Chem 35.61 [facility] Serum or plasma anion gap de terminationOrdered By: Dee Kenney on 08-12-2022 Anion gap [Moles/Vol] 11.3 mmol/L 6.0-15.0 [facility] Serum or plasma calcium azalea urement (mass/volume)Ordered By: Dee Kenney on 08-12-2022 Calcium [Mass/Vol] 8.6 mg/dL 8.2-10.2 [facility] Serum or plasma chloride janet surement (moles/volume)Ordered By: Dee Kenney on 08-12-2022 Chloride [Moles/Vol] 110 mmol/L 95-114 [facility] Serum or plasma glucose azalea urement (mass/volume)Ordered By: Dee Kenney on 08-12-2022 Glucose [Mass/Vol] 95 mg/dL 70-100 [facility] Comment on above: ADA recommended refe rence rangeRandom Glucose Reference Range is dependent on time and content of last meal. Glucose of more than 200 mg/dL in a nonstressed, ambulatory subject supports the diagnosis of Diabetes Mellitus. Serum or plasma potassium me asurement (moles/volume)Ordered By: Dee Kenney on 08-12-2022 Potassium [Moles/Vol] 3.7 mmol/L 3.5-5.1 [facility] Serum or plasma sodium measu rement (moles/volume)Ordered By: Dee Kenney on 08-12-2022 Sodium [Moles/Vol] 141 mmol/L 136-146 [facility] Serum or plasma total carbon dioxide measurement (moles/volume)Ordered By: Dee Kenney on 08-12-2022 CO2 [Moles/Vol] 23.4 mmol/L 22.0-30.0 [facility] Serum or plasma urea nitroge n measurement (mass/volume)Ordered By: Dee Kenney on 08-12-2022 Urea nitrogen [Mass/Vol] 28 mg/dL 9-23 [facility] TSH DL <= 0.005 mIU/L QnOrde red By: Dee Kenney on 08-11-2022 TSH Qn 2.20 m[IU]/L 0.45-5.33 [facility] Basophils Auto (Bld) [#/Vol] Ordered By: Edward Bernstein on 08-10-2022 Basophils (Bld) [#/Vol] 0.1 10*3/uL 0.0-0.2 [facility] Basophils/100 WBC Auto (Bld) Ordered By: Edward Bernstein on 08-10-2022 Basophils/100 WBC (Bld) 0.5 % . [facility] Bilirubin Test strip Ql (U)O rdered By: Edward Bernstein on 08-10-2022 Bilirubin Ql (U) Negative Negative [facility] Body fluid albumin measureme nt (mass/volume)Ordered By: Edward Bernstein on 08-10-2022 Albumin (Body fld) [Mass/Vol] 3.3 g/dL 3.2-5.5 [facility] COVID CepheidOrdered By: Rima Bernstein on 08-10-2022 SARS-CoV-2 (COVID-19) Ab IA Ql Negative Negative [facility] Comment on above: This is a duplicate [employer] Xpert Xpress CoV-2/Flu/RSV Plus RNA by RT-PCR result to be used for statistical tracking purpose only. SARS-CoV-2 (COVID-19) RNA ALLISON+probe Ql (Unsp spec) [facility] Color Auto (U)Ordered By: Harjit Bernstein on 08-10-2022 Color (U) Yellow Yellow [facility] Eosinophils Auto (Bld) [#/Vo l]Ordered By: Edward Bernstein on 08-10-2022 Eosinophils (Bld) [#/Vol] 0.1 10*3/uL 0.0-0.45 [facility] Eosinophils/100 WBC Auto (Bl d)Ordered By: Edward Bernstein on 08-10-2022 Eosinophils/100 WBC (Bld) 0.7 % . [facility] Erythrocyte distribution wid th Auto (RBC) [Ratio]Ordered By: Edward Bernstein on 08-10-2022 Erythrocyte distribution width (RBC) [Ratio] 13.4 % 11.9-15.3 [facility] Globulin Calc (S) [Mass/Vol] Ordered By: Edward Bernstein on 08-10-2022 Globulin (S) [Mass/Vol] 2.7 g/dL [facility] Glucose Glucometer (BldC) [M ass/Vol]Ordered By: Edward Bernstein on 08-10-2022 Glucose [Mass/Vol] 101 mg/dL [facility] Comment on above: Random Glucose Refer ence Range is dependent on time and content of last meal. Glucose of more than 200 mg/dL in a nonstressed, ambulatory subject supports the diagnosis of Diabetes Mellitus. Hematocrit Auto (Bld) [Volum e fraction]Ordered By: Edward Bernstein on 08-10-2022 Hematocrit (Bld) [Volume fraction] 40.9 % 34.0-46.4 [facility] Hemoglobin [Mass/volume] in BloodOrdered By: Edward Bernstein on 08-10-2022 Hemoglobin (Bld) [Mass/Vol] 13.3 g/dL 11.8-15.4 [facility] Ketones Auto test strip (U) [Mass/Vol]Ordered By: Edward Bernstein on 08-10-2022 Ketones (U) [Mass/Vol] Trace Negative [facility] Laboratory - Chemistry and C hemistry - challengeOrdered By: Edward Bernstein on 08-10-2022 Magnesium [Mass/Vol] 2.2 mg/dL 1.6-2.6 [facility] Natriuretic peptide B (Bld) [Mass/Vol] 29.0 pg/mL 5-100 [facility] Laboratory - CoagulationOrde red By: Edward Bernstein on 08-10-2022 PT Coag (PPP) [Time] 11.0 s 9.0-12.9 [facility] Laboratory - Hematology and Cell countsOrdered By: Edward Bernstein on 08-10-2022 Nucleated RBC/100 WBC (Bld) [Ratio] 0.0 % 0-0.5 [facility] Leukocytes [#/volume] in Blo od by Automated countOrdered By: Edward Bernstein on 08-10-2022 WBC (Bld) [#/Vol] 9.9 10*3/uL 4.5-11.0 [facility] Lymphocytes Auto (Bld) [#/Vo l]Ordered By: Edward Bernstein on 08-10-2022 Lymphocytes (Bld) [#/Vol] 0.9 10*3/uL 1.00-4.8 [facility] Lymphocytes/100 WBC Auto (Bl d)Ordered By: Edward Bernstein on 08-10-2022 Lymphocytes/100 WBC (Bld) 9.5 % . [facility] MCH Auto (RBC) [Entitic mass ]Ordered By: Edward Bernstein on 08-10-2022 MCH (RBC) [Entitic mass] 30.6 pg 24.7-34.3 [facility] MCHC Auto (RBC) [Mass/Vol]Or dered By: Edward Bernstein on 08-10-2022 MCHC (RBC) [Mass/Vol] 32.6 g/dL 32.0-35.0 [facility] MCV Auto (RBC) [Entitic vol] Ordered By: Edward Bernstein on 08-10-2022 MCV (RBC) [Entitic vol] 94.0 fL 80-100 [facility] Monocytes Auto (Bld) [#/Vol] Ordered By: Edward Bernstein on 08-10-2022 Monocytes (Bld) [#/Vol] 0.6 10*3/uL 0.0-0.8 [facility] Monocytes/100 WBC Auto (Bld) Ordered By: Edward Bernstein on 08-10-2022 Monocytes/100 WBC (Bld) 5.7 % . [facility] Neutrophils Auto (Bld) [#/Vo l]Ordered By: Edward Bernstein on 08-10-2022 Neutrophils (Bld) [#/Vol] 8.3 10*3/uL 1.8-7.7 [facility] Neutrophils/100 WBC Auto (Bl d)Ordered By: Edward Bernstein on 08-10-2022 Neutrophils/100 WBC (Bld) 83.6 % . [facility] Nitrite Test strip Ql (U)Ord ered By: Edward Bernstein on 08-10-2022 Nitrite Ql (U) Negative Negative [facility] Platelet mean volume Auto (B ld) [Entitic vol]Ordered By: Edward Bernstein on 08-10-2022 Platelet mean volume (Bld) [Entitic vol] 10.2 fL 6.3-10.7 [facility] Platelet poor plasma interna tional normalized ratio (INR) by coagulation assay (relatOrdered By: Edward Bernstein on 08-10-2022 INR Coag (PPP) [Relative time] 1.0 {INR} [facility] Comment on above: INR Therapeutic Rang e [...] 08-10-2022 Platelets (Bld) [#/Vol] 193 10*3/uL 150-450 [facility] Protein Auto test strip (U) [Mass/Vol]Ordered By: Edward Bernstein on 08-10-2022 Protein (U) [Mass/Vol] Negative Negative [facility] Protein [Mass/volume] in Ser um or PlasmaOrdered By: Edward Bernstein on 08-10-2022 Protein [Mass/Vol] 6.0 g/dL 6.1-7.9 [facility] RBC Auto (Bld) [#/Vol]Ordere d By: Edward Bernstein on 08-10-2022 RBC (Bld) [#/Vol] 4.36 10*6/uL 3.60-5.00 [facility] Serum or plasma alanine jensen otransferase measurement without P-5'-P (enzymatic activiOrdered By: Edward Bernstein on 08-10-2022 ALT No additional P-5'-P [Catalytic activity/Vol] 12 U/L 10-60 [facility] Serum or plasma albumin/glob ulin mass ratioOrdered By: Edward Bernstein on 08-10-2022 Albumin/Globulin [Mass ratio] 1.2 {ratio} [facility] Serum or plasma alkaline sondra sphatase measurement (enzymatic activity/volume)Ordered By: Edward Bernstein on 08-10-2022 ALP [Catalytic activity/Vol] 52 U/L 32-92 [facility] Serum or plasma aspartate am inotransferase measurement (enzymatic activity/volume)Ordered By: Edward Bernstein on 08-10-2022 AST [Catalytic activity/Vol] 16 U/L 10-42 [facility] Serum or plasma total biliru bin measurement (mass/volume)Ordered By: Edward Bernstein on 08-10-2022 Bilirubin [Mass/Vol] 0.5 mg/dL 0.3-1.2 [facility] Specific gravity Auto test s trip (U) [Rel density]Ordered By: Edward Bernstein on 08-10-2022 Specific gravity (U) [Rel density] 1.014 1.001-1.03 0 [facility] Troponin I.cardiac [Mass/vol ume] in Serum or Plasma by High sensitivity methodOrdered By: Edward Bernstein on 08-10-2022 Troponin I.cardiac High sensitivity method [Mass/Vol] 9 pg/mL 0-15 [facility] Urine clarity by refractomet ry automatedOrdered By: Edward Bernstein on 08-10-2022 Clarity Refractometry automated (U) Clear Clear [facility] Urine glucose measurement by automated test strip (mass/volume)Ordered By: Edward Bernstein on 08-10-2022 Glucose Auto test strip (U) [Mass/Vol] Normal mg/dL Normal [facility] Urine hemoglobin detection b y automated test stripOrdered By: Edward Bernstein on 08-10-2022 Hemoglobin Auto test strip Ql (U) Negative Negative [facility] Urine leukocyte esterase det ection by automated test stripOrdered By: Edward Bernstein on 08-10-2022 Leukocyte esterase Auto test strip Ql (U) Negative Negative [facility] Urobilinogen Auto test strip (U) [Mass/Vol]Ordered By: Edward Bernstein on 08-10-2022 Urobilinogen (U) [Mass/Vol] Normal mg/dL Normal [facility] pH Auto test strip (U)Ordere d By: Edward Bernstein on 08-10-2022 pH (U) 5.5 [pH] 5.0-9.0 [facility] MRI Brain w/oon 09-20-2021 MRI Brain w/o CLINICAL HISTORY: COMPARISON: TECHNIQUE: Multiplan[facility] MRI of the brain was performed [...] by MATTHEW TRIPLETT on 09/21/2021 1240 Normal [facility] LYME DISEASE, WESTERN BLOTon 08-26-2021 IgG P18 Ab. Absent Normal [facility] Comment on above: Performed By: #### L YMWB #### [facility] [address] [place] [address] [address] Christian Lebron IgG P23 Ab. Absent Normal [facility] Comment on above: Performed By: #### L YMWB #### [facility] [address] [place] [address] Dr. Christian Lebron IgG P28 Ab. Absent [facility] Comment on above: Performed By: #### L YMWB #### [facility] [address] [place] [address] Dr. Christian Lebron IgG P30 Ab. Absent [facility] Comment on above: Performed By: #### L YMWB #### [facility] [address] [place] [address] Dr. Christian Lebron IgG P39 Ab. Absent [facility] Comment on above: Performed By: #### L YMWB #### [facility] [address] [place] [address] Dr. Christian Lebron IgG P41 Ab. Absent [facility] Comment on above: Performed By: #### L YMWB #### [facility] [address] [place] [address] Dr. Christian Lebron IgG P45 Ab. Absent [facility] Comment on above: Performed By: #### L YMWB #### [facility] [address] [place] [address] Dr. Christian Lebron IgG P58 Ab. Absent [facility] Comment on above: Performed By: #### L YMWB #### [facility] [address] [place] [address] Dr. Christian Lebron IgG P66 Ab. Absent [facility] Comment on above: Performed By: #### L YMWB #### [facility] [address] [place] [address] Dr. Christian Lebron IgG P93 Ab. Absent [facility] Comment on above: Performed By: #### L YMWB #### [facility] [address] [place] [address] Dr. Christian Lebron IgM P23 Ab. Absent [facility] Comment on above: Performed By: #### L YMWB #### [facility] [address] [place] [address] Dr. Christian Lebron IgM P39 Ab. Absent Normal [facility] Comment on above: Performed By: #### L YMWB #### [facility] [address] [place] [address] Dr. Christian Lebron IgM P41 Ab. Absent [facility] Comment on above: Performed By: #### L YMWB #### [facility] [address] [place] [address] Dr. Christian Lebron Lyme IgG WB Interp. Negative [facility] Comment on above: Result Comment: Posi tive: 5 of the following Borrelia-specific bands: 18,23,28,30,39,41,45,58, 66, and 93. Negative: No bands or banding patterns which do not meet positive criteria. Performed By: #### L YMWB #### [facility] [address] [place] [address] Dr. Christian Lebron Lyme IgM WB Interp. Negative [facility] Comment on above: Result Comment: Note : [...] are those recommended by CDC/ASTPHLD. p23=Osp C, y24=pwdfsnrwa . Note: Sera from individuals with the following may cross react in the Lyme Line Blot assays: other spirochetal diseases (periodontal disease, leptospirosis, relapsing fever, yaws, and pinta); connective autoimmune (Rheumatoid Arthritis and Systemic Lupus Erythematosus and also individuals with Antinuclear Antibody); other infections ([place] Spotted Fever; Roel-Briones Virus, and Cytomegalovirus). . Performed By: #### L YMWB #### [facility] [address] [address] [address] Christian Lebron METHYLMALONIC ACID (MMA)on 10-26-2020 Disclaimer: Comment Normal [facility] Comment on above: Result Comment: This test was developed and its performance characteristics determined by [employer]. It has not been cleared or approved by the Food and Drug Administration. Performed By: #### M MA2 #### [facility] [address] [place] [address] Dr. Christian Lebron Methylmalonic Acid, Serum 255 nmol/L Normal 0-378 [facility] Comment on above: Performed By: #### M MA2 #### [facility] [address] [place] [address] Dr. Christian Lebron HOMOCYSTEINEon 08-25-2021 Homocyst(e)ine, Plasma 29.7 umol/L Critically high 0.0-21. 3 [facility] Comment on above: Result Comment: Spec imen quantity insufficient for verification by repeat analysis. Performed By: #### H OMCY #### [facility] [address] [place] [address] Dr. Christian Lebron RPR QUANTon 08-24-2021 Rapid Plasma Reagin, Quant Non-Reactive Normal NonRea<1:1 [facility] Comment on above: Performed By: #### R PRQ #### [facility] [address] [place] [address] Dr. Christian Lebron AMMONIAon 2021 Ammonia (P) [Moles/Vol] 9 umol/L Critically low 10-30 [facility] Comment on above: Performed By: #### M MA2 #### [facility] [address] [place] [address] Dr. Christian Lebron CRPon 2021 CRP [Mass/Vol] mg/L Normal <=1.0 [facility] Comment on above: Performed By: #### M MA2 #### [facility] [address] [place] [address] Dr. Christian Lebron FOLATEon 2021 FOLATE 4.50 ng/mL Normal >=2.76 [facility] Comment on above: Performed By: #### F T4, VITB12, FOL #### [facility] [address] [place] [address] Dr. Christian Lebron FREE T4on 2021 Free T4 [Mass/Vol] 0.98 ng/dL Normal 0.78-2.19 [facility] Comment on above: Performed By: #### F T4, VITB12, FOL #### [facility] [address] [place] [address] Dr. Christian Lebrno LIVER PROFILEon 2021 Albumin [Mass/Vol] 3.6 g/dL Normal 3.5-5.0 [facility] Comment on above: Performed By: #### M MA2 #### [facility] Laboratory [address] [place] [address] Dr. Christian Lebron Albumin/Globulin [Mass ratio] 1.0 {ratio} Normal [facility] Comment on above: Performed By: #### M MA2 #### [facility] Laboratory [address] [place] [address] Dr. Christian Lebron ALP [Catalytic activity/Vol] 96 U/L Normal 38-126 [facility] Comment on above: Performed By: #### M MA2 #### [facility] Laboratory [address] [place] [address] Dr. Christian Lebron ALT [Catalytic activity/Vol] 14 U/L Normal 9-52 [facility] Comment on above: Performed By: #### M MA2 #### [facility] Laboratory [address] [place] [address] Dr. Christian Lebron AST [Catalytic activity/Vol] 17 U/L Normal 14-36 [facility] Comment on above: Performed By: #### M MA2 #### [facility] Laboratory [address] [place] [address] Dr. Christian Lebron BILI, CONJUGATED 0.1 mg/dL Normal 0.0-0.3 [facility] Comment on above: Performed By: #### M MA2 #### [facility] Laboratory [address] [place] [address] Dr. Christian Lebron Bilirubin [Mass/Vol] 0.3 mg/dL Normal 0.2-1.3 [facility] Comment on above: Performed By: #### M MA2 #### [facility] Laboratory [address] [place] [address] Dr. Christian Lebron Globulin (S) [Mass/Vol] 3.7 g/dL Normal [facility] Comment on above: Performed By: #### M MA2 #### [facility] Laboratory [address] [place] [address] Dr. Christian Lebron Protein [Mass/Vol] 7.3 g/dL Normal 6.1-8.2 [facility] Comment on above: Performed By: #### M MA2 #### [facility] [address] [place] [address] Dr. Christian Lebron [facility] 31 mm/hr Critically high <=30 [facility] Comment on above: Performed By: #### H OMCY #### [facility] Laboratory [address] [place] [address] Dr. Christian Lebron TSHon 2021 TSH 3.087 uIU/mL Normal 0.470-4.68 0 [facility] Comment on above: Performed By: #### M MA2 #### [facility] Laboratory [address] [place] [address] Dr. Christian Lebron TSH RANGE SEE BELOW Normal [facility] Comment on above: Result Comment: <0.3 4 UIU/ml HYPERTHYROID 0.34-5.60 UIU/ml EUTHYROID >5.60 UIU/ml HYPOTHYROID Performed By: #### M MA2 #### [facility] [address] [place] [address] Dr. Christian Lebron VITAMIN B12on 2021 Cobalamin (Vitamin B12) [Mass/Vol] 521.0 pg/mL Normal 239.0-931. 0 [facility] Comment on above: Performed By: #### F T4, VITB12, FOL #### [facility] Laboratory [address] [place] [address] Dr. Christian Lebron XR DEXA BONE DENSITYon [...] OMAR SOTELO Date: 2021-07-10 14:50 Normal [facility] CBC AUTO DIFFon 02-02-2021 BASO # 0.1 103/ul Normal 0.0-0.1 [facility] Comment on above: Performed By: #### C BC #### [facility] Laboratory [address] [place], [place] [address] Lauri Pily Basophils/100 WBC (Bld) 0.4 % Normal 0.2-2.0 [facility] Comment on above: Performed By: #### C BC #### [facility] Laboratory [address] [place], [place] [address] Lauri Pily EO # 0.1 103/ul Normal 0.0-0.7 [facility] Comment on above: Performed By: #### C BC #### [facility] [address] [place], [place] [address] Lauri Pily Eosinophils/100 WBC (Bld) 0.9 % Normal 0.9-7.0 [facility] Comment on above: Performed By: #### C BC #### [facility] [address] [place] [address] Lauri Pily Erythrocyte distribution width (RBC) [Ratio] 14.2 % Normal 11.0-15.0 [facility] Comment on above: Performed By: #### C BC #### [facility] [address] [place] [address] Laurilaura Nascimento Hematocrit (Bld) [Volume fraction] 40.8 % Normal 36.0-48.0 [facility] Comment on above: Performed By: #### C BC #### [facility] [address] [place], [place] [address] Laurilaura Nascimento Hemoglobin (Bld) [Mass/Vol] 13.1 g/dL Normal 12.0-16.0 [facility] Comment on above: Performed By: #### C BC #### [facility] [address] [place] [address] Laurilaura Nascimento IG # 0.06 10e3/ul Critically high 0.00-0.03 [facility] Comment on above: Performed By: #### C BC #### [facility] [address] [place] [address] Laurilaura Nascimento IG % 0.5 % Normal 0.0-0.5 [facility] Comment on above: Performed By: #### C BC #### [facility] [address] [place] [address] Laurilaura Nascimento LYMPH # 2.4 103/ul Normal 1.2-3.8 [facility] Comment on above: Performed By: #### C BC #### [facility] [address] [place] [address] Lauri Nascimento Lymphocytes/100 WBC (Bld) 20.7 % Normal 20.5-60.0 [facility] Comment on above: Performed By: #### C BC #### [facility] [address] [place] [address] Lauri Nascimento MANUAL DIFF REQ NO Normal [facility] Comment on above: Performed By: #### C BC #### [facility] [address] [place], [place] [address] Lauri Nascimento MCH (RBC) [Entitic mass] 28.5 pg Normal 26.7-34.0 [facility] Comment on above: Performed By: #### C BC #### [facility] Laboratory [address] [place], [place] [address] Laurilaura Nascimento MCHC (RBC) [Mass/Vol] 32.1 g/dL Normal 29.9-35.2 [facility] Comment on above: Performed By: #### C BC #### [facility] [address] [place], [place] [address] Laurilaura Nascimento MCV (RBC) [Entitic vol] 88.9 fL Normal 81.0-99.0 [facility] Comment on above: Performed By: #### C BC #### [facility] [address] [place], [place] [address] Lauri Pily MONO # 0.9 103/ul Critically high 0.3-0.8 [facility] Comment on above: Performed By: #### C BC #### [facility] [address] [place] [id number] Lauri Pily Monocytes/100 WBC (Bld) 7.7 % Normal 1.7-12.0 [facility] Comment on above: Performed By: #### C BC #### [facility] [address] [id number] Lauri Pily NEUT # 8.1 103/ul Critically high 1.4-6.5 [facility] Comment on above: Performed By: #### C BC #### [facility] [address] [place], [place] [address] Lauri Pily Neutrophils/100 WBC (Bld) 69.8 % Normal 43.0-75.0 [facility] Comment on above: Performed By: #### C BC #### [facility] [address] [id number] Lauri Pily Platelet mean volume (Bld) [Entitic vol] 11.9 fL Normal 9.5-13.5 [facility] Comment on above: Performed By: #### C BC #### [facility] [address] [id number] Lauri Pily PLT 197 103/ul Normal 150-450 [facility] Comment on above: Performed By: #### C BC #### [facility] [address] [phone] Lauri Pily RBC 4.59 106/ul Normal 4.20-5.40 [facility] Comment on above: Performed By: #### C BC #### [facility] [address] [place] [address] Lauri Nascimento WBC 11.6 103/ul Critically high 4.0-11.0 [facility] Comment on above: Performed By: #### C BC #### [facility] [address] [place] [address] Lauri Nascimento PROF CHEM 8 (BAS METB)on Anion gap [Moles/Vol] 12.7 mmol/L Normal Th e [facility] Comment on above: Performed By: #### H OMCY #### [facility] [address] [place] [address] Dr. Christian Lebron Calcium [Mass/Vol] 9.1 mg/dL Normal 8.4-10.2 [facility] Comment on above: Performed By: #### H OMCY #### [facility] [address] [place] [address] Dr. Christian Lebron Chloride [Moles/Vol] 110 mmol/L Critically high 98-107 [facility] Comment on above: Performed By: #### H OMCY #### [facility] [address] [place] [address] Dr. Christian Lebron CO2 [Moles/Vol] 21.7 mmol/L Critically low 22.0-30.0 [facility] Comment on above: Performed By: #### H OMCY #### [facility] [address] [place] [address] Dr. Christian Lebron Creatinine [Mass/Vol] 1.25 mg/dL Critically high 0.52-1.04 [facility] Comment on above: Performed By: #### H OMCY #### [facility] [address] [place] [address] Dr. Christian Lebron EGFR-AF MALAWIAN 50 mL/min/1.73m2 Critically low >=60 [facility] Comment on above: Performed By: #### H OMCY #### [facility] [address] [place], [place] [address] Dr. Christian Lebron EGFR-NON AF MALAWIAN 41 mL/min/1.73m2 Critically low >=60 [facility] Comment on above: Performed By: #### H OMCY #### [facility] [address] [place] [address] [address] Christian Lebron Glucose [Mass/Vol] 117 mg/dL Critically high 74-106 [facility] Comment on above: Performed By: #### H OMCY #### [facility] [address] [place] [address] [address] Christian Lebron Potassium [Moles/Vol] 3.4 mmol/L Normal 3.4-5.0 [facility] Comment on above: Performed By: #### H OMCY #### [facility] [address] [place] [address] [address] Christian Lebron Sodium [Moles/Vol] 141 mmol/L Normal 137-145 [facility] Comment on above: Performed By: #### H OMCY #### [facility] [address] [place] [address] Dr. Christian Lebron Urea nitrogen [Mass/Vol] 28.0 mg/dL Critically high 7.0-17.0 [facility] Comment on above: Performed By: #### H OMCY #### [facility] [address] [place] [address] Dr. Christian Lebron Urea nitrogen/Creatinine [Mass ratio] 22.4 mg/mg Normal [facility] Comment on above: Performed By: #### H OMCY #### [facility] [address] [place] [address] [address] Christian Lebron CBC AUTO DIFFon 02-01-2021 BASO # 0.1 103/ul Normal 0.0-0.1 [facility] Comment on above: Performed By: #### M MA2 #### [facility] [address] [place] [address] Dr. Christian Lebron Basophils/100 WBC (Bld) 0.5 % Normal 0.2-2.0 [facility] Comment on above: Performed By: #### M MA2 #### [facility] [address] [address] [address] Christian Lebron EO # 0.1 103/ul Normal 0.0-0.7 [facility] Comment on above: Performed By: #### M MA2 #### [facility] [address] [place] [address] Dr. Christian Lebron Eosinophils/100 WBC (Bld) 1.0 % Normal 0.9-7.0 [facility] Comment on above: Performed By: #### Khadar HORNE2 #### [facility] [address] [place] [address] Dr. Christian Lebron Erythrocyte distribution width (RBC) [Ratio] 13.9 % Normal 11.0-15.0 [facility] Comment on above: Performed By: #### Khadar HORNE2 #### [facility] [address] [place] [address] Dr. Christian Lebron Hematocrit (Bld) [Volume fraction] 38.7 % Normal 36.0-48.0 [facility] Comment on above: Performed By: #### Khadar HORNE2 #### [facility] [address] [place] [address] Dr. Christian Lebron Hemoglobin (Bld) [Mass/Vol] 12.3 g/dL Normal 12.0-16.0 [facility] Comment on above: Performed By: #### Khadar HORNE2 #### [facility] [address] [place] [address] Dr. Christian Lebron IG # 0.04 10e3/ul Critically high 0.00-0.03 [facility] Comment on above: Performed By: #### Khadar HORNE2 #### [facility] [address] [place] [address] Dr. Christian Lebron IG % 0.4 % Normal 0.0-0.5 [facility] Comment on above: Performed By: #### M MA2 #### [facility] [address] [place] [address] Dr. Christian Lebron LYMPH # 2.0 103/ul Normal 1.2-3.8 [facility] Comment on above: Performed By: #### Khadar HORNE2 #### [facility] [address] [place] [address] Dr. Christian Lebron Lymphocytes/100 WBC (Bld) 22.0 % Normal 20.5-60.0 [facility] Comment on above: Performed By: #### M MA2 #### [facility] [address] [place] [address] Dr. Christian Lebron MANUAL DIFF REQ NO Normal [facility] Comment on above: Performed By: #### M OZZIE2 #### [facility] [address] [place] [address] Dr. Christian Lebron MCH (RBC) [Entitic mass] 29.0 pg Normal 26.7-34.0 [facility] Comment on above: Performed By: #### Khadar HORNE2 #### [facility] [address] [place] [address] Dr. Christian Lebron MCHC (RBC) [Mass/Vol] 31.8 g/dL Normal 29.9-35.2 [facility] Comment on above: Performed By: #### Khadar HORNE2 #### [facility] [address] [place] [address] Dr. Christian Lebron MCV (RBC) [Entitic vol] 91.3 fL Normal 81.0-99.0 [facility] Comment on above: Performed By: #### Khadar HORNE2 #### [facility] [address] [place] [address] Dr. Christian Lebron MONO # 0.8 103/ul Normal 0.3-0.8 [facility] Comment on above: Performed By: #### Khadar HORNE2 #### [facility] [address] [place] [address] Dr. Christian Lebron Monocytes/100 WBC (Bld) 8.7 % Normal 1.7-12.0 [facility] Comment on above: Performed By: #### M OZZIE2 #### [facility] [address] [place] [address] Dr. Christian Lebron NEUT # 6.2 103/ul Normal 1.4-6.5 [facility] Comment on above: Performed By: #### Khadar HORNE2 #### [facility] [address] [place] [address] [address] Christian Lebron Neutrophils/100 WBC (Bld) 67.4 % Normal 43.0-75.0 [facility] Comment on above: Performed By: #### M MA2 #### [facility] [address] [address] [address] Christian Lebron Platelet mean volume (Bld) [Entitic vol] 11.9 fL Normal 9.5-13.5 [facility] Comment on above: Performed By: #### M MA2 #### [facility] [address] [address] [address] Christian Lebron PLT 175 103/ul Normal 150-450 [facility] Comment on above: Performed By: #### M MA2 #### [facility] [address] [place] [address] Dr. Christian Lebron RBC 4.24 106/ul Normal 4.20-5.40 [facility] Comment on above: Performed By: #### M MA2 #### [facility] [address] [place] [address] [address] Christian Lebron WBC 9.1 103/ul Normal 4.0-11.0 [facility] Comment on above: Performed By: #### M MA2 #### [facility] [address] [place] [address] HEAD WO CONon [...] ANSARI Date: 2021-01-31 22:45 Normal [facility] ECHO LIMITED STUDYon 021 ECHO LIMITED STUDY Patient: CARLEY QUINTANILLA Exam Date: 02/01/2021 : 1940 Gender:F Ordering : DR. LULU FRIEDMAN . Admission #: [id number] Family : DR KALI MAHARAJ M.D. Order #: [id number] CLICK HERE TO VIEW EXAM ECHOCARDIOGRAM REPORT [...] Area(A4C): 15.60 cm2 Left Atrium Systolic Volume(A2C): 90327 mm3 Left Atrium Systolic Volume(A4C): 64055 mm3 Mitral Valve Right Ventricle Aorta AO Root Diam: 3.10 cm Aortic Valve Tricuspid Valve Pulmonic Valve Right Atrium Dictated by: Max Carbone M.D. on 02/01/2021 at 13:45 Approved by: Max Carbone M.D. on 02/01/2021 at 13:51 Normal [facility] ER URINE PROFILEon 1 Bilirubin Ql (U) Negative Normal NEGATIVE [facility] Comment on above: Performed By: #### E RUR #### [facility] [address] [place] [address] Lauri Pily Clarity (U) CLEAR Normal CLEAR [facility] Comment on above: Performed By: #### E RUR #### [facility] [address] [place] [address] Lauri Pily Color (U) LT. YELLOW Normal YELLOW [facility] Comment on above: Performed By: #### E RUR #### [facility] [address] [place] [address] Lauri Pily ERUAHD A micrscopic examina tion will be performed if indicated. Normal [facility] Comment on above: Performed By: #### E RUR #### [facility] [address] [place] [address] Lauri Pily Glucose Ql (U) Negative Normal NEGATIVE [facility] Comment on above: Performed By: #### E RUR #### [facility] [address] [place] [address] Lauri Pily Hemoglobin Ql (U) Negative Normal NEGATIVE [facility] Comment on above: Performed By: #### E RUR #### [facility] [address] [place] [address] Lauri Pily Ketones Ql (U) TRACE Abnormal NEGATIVE [facility] Comment on above: Performed By: #### E RUR #### [facility] [address] [place] [address] Lauri Nascimento LEUKOCYTES Negative Normal NEGATIVE [facility] Comment on above: Performed By: #### E RUR #### [facility] [address] [place], [place] [address] Laurilaura Nascimento Nitrite Ql (U) Negative Normal NEGATIVE [facility] Comment on above: Performed By: #### E RUR #### [facility] [address] [place] [address] Lauri Nascimento pH (U) 5.0 [pH] Normal 5-9 [facility] Comment on above: Performed By: #### E RUR #### [facility] [address] [place] [address] Lauri Nascimento SPEC GRAVITY 1.025 Normal 1.005-<=1. 025 [facility] Comment on above: Performed By: #### E RUR #### [facility] [address] [place] [address] Lauri Nascimento UA PROTEIN TRACE Normal NEGATIVE/ TRACE [facility] Comment on above: Performed By: #### E RUR #### [facility] [address] [place] [address] Lauri Nascimento UR MICRO IND NOT INDICATED Normal [facility] Comment on above: Performed By: #### E RUR #### [facility] [address] [place] [address] Lauri Nascimento Urobilinogen Qn (U) 0.2 {Irineo'U}/dL Normal 0.2 - 1. 0 [facility] Comment on above: Performed By: #### E RUR #### [facility] [address] [place] [address] Lauri Nascimento PROF CHEM 8 (BAS METB)on Anion gap [Moles/Vol] 15.6 mmol/L Normal [facility] Comment on above: Performed By: #### M MA2 #### [facility] [address] [address] [address] Christian Lebron Calcium [Mass/Vol] 8.8 mg/dL Normal 8.4-10.2 [facility] Comment on above: Performed By: #### M MA2 #### [facility] [address] [address] [address] Christian Lebron Chloride [Moles/Vol] 109 mmol/L Critically high 98-107 [facility] Comment on above: Performed By: #### M MA2 #### [facility] [address] [address] [address] Christian Lebron CO2 [Moles/Vol] 23.1 mmol/L Normal 22.0-30.0 [facility] Comment on above: Performed By: #### M MA2 #### [facility] [address] [address] [address] Christian Lebron Creatinine [Mass/Vol] 1.49 mg/dL Critically high 0.52-1.04 [facility] Comment on above: Performed By: #### M MA2 #### [facility] [address] [address] [address] Christian Lebron EGFR-AF MALAWIAN 41 mL/min/1.73m2 Critically low >=60 [facility] Comment on above: Performed By: #### M MA2 #### [facility] [address] [address] [address] Christian Lebron EGFR-NON AF MALAWIAN 34 mL/min/1.73m2 Critically low >=60 [facility] Comment on above: Performed By: #### M MA2 #### [facility] [address] [address] [address] Christian Lebron Glucose [Mass/Vol] 114 mg/dL Critically high 74-106 T [facility] Comment on above: Performed By: #### M MA2 #### [facility] [address] [address] [address] Christian Lebron Potassium [Moles/Vol] 3.7 mmol/L Normal 3.4-5.0 [facility] Comment on above: Performed By: #### M MA2 #### [facility] [address] [address] [address] Christian Lebron Sodium [Moles/Vol] 144 mmol/L Normal 137-145 [facility] Comment on above: Performed By: #### M MA2 #### [facility] [address] [place] [address] Dr. Christian Lebron Urea nitrogen [Mass/Vol] 28.0 mg/dL Critically high 7.0-17.0 [facility] Comment on above: Performed By: #### M MA2 #### [facility] [address] [address] [address] Christian Lebron Urea nitrogen/Creatinine [Mass ratio] 18.8 mg/mg Normal [facility] Comment on above: Performed By: #### M MA2 #### [facility] [address] [place] [address] Dr. Christian Lebron Rapid Covid-19 PCR (CVDRPD)o n 02-01-2021 SARS-CoV-2 (COVID-19) RNA ALLISON+probe Ql (Unsp spec) Not detected Normal NOT DETECTED [facility] Comment on above: Result Comment: This test is not yet approved or cleared by the [place] Food and Drug Administration (FDA). This test was developed by [employer], [place], [place]. The performance characteristics of this test were validated by The [facility]. The results are not intended to be used as the sole means for clinical diagnosis or patient management decisions. The [facility] is authorized under Clinical Laboratory Improvement Amendments (CLIA) to perform high- complexity testing. When diagnostic testing is negative, the possibility of a false negative should be considered in the context of a patient's recent exposures and the presence of clinical signs and symptoms consistent with SARS-CoV-2. Performed By: #### H OMCY #### [facility] [address] [place] [address] Dr. Christian Lebron TROPONIN, HIGH SENSITIVITYon 02-01-2021 HSTROP 15.4 pg/mL Normal 4.0-35.5 [facility] Comment on above: Result Comment: CUT- OFF POINTS HAVE BEEN ESTABLISHED BASED ON THE FOURTH UNIVERSAL DEFINITIONS OF MYOCARDIAL INFARCTION. THE UPPER REFERENCE LIMIT (URL) OF TROPONIN, DEFINED THE 99TH PERCENTILE OF cTnI DISTRIBUTION IN A REFERENCE POPULATION, HAS BEEN CONFIRMED THE DECISION THRESHOLD FOR MD DIAGNOSIS. Performed By: #### H STROPN #### [facility] [address] [place], [place] [address] Lauri Nascimento XR CHEST 2 Von 02-01-2021 [...] ANSARI Date: 2021-01-31 22:40 Normal [facility] XR PELVIS 1_2 VIEWSon 2020 XR [...] YAQUELIN ANSARI Date: 2021-01-31 22:41 Normal [facility] BNPon 01-31-2021 Natriuretic peptide B (Bld) [Mass/Vol] 1162.0 pg/mL Normal <=1,800.0 [facility] Comment on above: Performed By: #### H OMCY #### [facility] [address] [place] [address] Dr. Christian Lebron CBC AUTO DIFFon 01-31-2021 BASO # 0.0 103/ul Normal 0.0-0.1 [facility] Comment on above: Performed By: #### E RUR #### [facility] [address] [place] [address] Lauri Nascimento Basophils/100 WBC (Bld) 0.4 % Normal 0.2-2.0 [facility] Comment on above: Performed By: #### E RUR #### [facility] [address] [place] [address] Lauri Pily EO # 0.1 103/ul Normal 0.0-0.7 [facility] Comment on above: Performed By: #### E RUR #### [facility] [address] [place], [place] [address] Lauri Pily Eosinophils/100 WBC (Bld) 0.9 % Normal 0.9-7.0 [facility] Comment on above: Performed By: #### E RUR #### [facility] [address] [place] [address] Lauri Pily Erythrocyte distribution width (RBC) [Ratio] 13.8 % Normal 11.0-15.0 [facility] Comment on above: Performed By: #### E RUR #### [facility] [address] [place] [address] Lauri Pily Hematocrit (Bld) [Volume fraction] 42.8 % Normal 36.0-48.0 [facility] Comment on above: Performed By: #### E RUR #### [facility] [address] [place] [address] Lauri Pily Hemoglobin (Bld) [Mass/Vol] 13.8 g/dL Normal 12.0-16.0 [facility] Comment on above: Performed By: #### E RUR #### [facility] [address] [place] [address] Lauri Pily IG # 0.04 10e3/ul Critically high 0.00-0.03 [facility] Comment on above: Performed By: #### E RUR #### [facility] [address] [place] [address] Lauri Pily IG % 0.4 % Normal 0.0-0.5 [facility] Comment on above: Performed By: #### E RUR #### [facility] [address] [place], [place] [address] Lauri Pily LYMPH # 2.3 103/ul Normal 1.2-3.8 [facility] Comment on above: Performed By: #### E RUR #### [facility] [address] [place], [place] [address] Lauri Pily Lymphocytes/100 WBC (Bld) 21.7 % Normal 20.5-60.0 [facility] Comment on above: Performed By: #### E RUR #### [facility] [address] [place], [place] [address] Lauri Nascimento MANUAL DIFF REQ NO Normal [facility] Comment on above: Performed By: #### E RUR #### [facility] [address] [place], [place] [address] Lauri Nascimento MCH (RBC) [Entitic mass] 28.9 pg Normal 26.7-34.0 [facility] Comment on above: Performed By: #### E RUR #### [facility] [address] [place] [address] Lauri Nascimento MCHC (RBC) [Mass/Vol] 32.2 g/dL Normal 29.9-35.2 [facility] Comment on above: Performed By: #### E RUR #### [facility] [address] [place] [address] Lauri Nascimento MCV (RBC) [Entitic vol] 89.7 fL Normal 81.0-99.0 [facility] Comment on above: Performed By: #### E RUR #### [facility] [address] [place], [place] [address] Lauri Nascimento MONO # 0.9 103/ul Critically high 0.3-0.8 [facility] Comment on above: Performed By: #### E RUR #### [facility] [address] [place] [address] Lauri Nascimento Monocytes/100 WBC (Bld) 8.0 % Normal 1.7-12.0 [facility] Comment on above: Performed By: #### E RUR #### [facility] [address] [place], [place] [address] Laurilaura Nascimento NEUT # 7.4 103/ul Critically high 1.4-6.5 [facility] Comment on above: Performed By: #### E RUR #### [facility] [address] [place], [place] [address] Lauri Nascimento Neutrophils/100 WBC (Bld) 68.6 % Normal 43.0-75.0 [facility] Comment on above: Performed By: #### E RUR #### [facility] [address] [place] [address] Lauri Nascimento Platelet mean volume (Bld) [Entitic vol] 11.8 fL Normal 9.5-13.5 [facility] Comment on above: Performed By: #### E RUR #### [facility] [address] [place] [address] Lauri Nascimento PLT 190 103/ul Normal 150-450 [facility] Comment on above: Performed By: #### E RUR #### [facility] [address] [place] [address] Lauri Nascimento RBC 4.77 106/ul Normal 4.20-5.40 [facility] Comment on above: Performed By: #### E RUR #### [facility] [address] [place] [address] Lauri Nascimento WBC 10.8 103/ul Normal 4.0-11.0 [facility] Comment on above: Performed By: #### E RUR #### [facility] [address] [place] [address] Lauri Gavinen PROF 14(COMP METB)on 021 Albumin [Mass/Vol] 3.6 g/dL Normal 3.5-5.0 [facility] Comment on above: Performed By: #### H OMCY #### [facility] [address] [place] [address] Dr. Christian Lebron Albumin/Globulin [Mass ratio] 1.0 {ratio} Normal [facility] Comment on above: Performed By: #### H OMCY #### [facility] [address] [place] [address] Dr. Christian Lebron ALP [Catalytic activity/Vol] 74 U/L Normal 38-126 [facility] Comment on above: Performed By: #### H OMCY #### [facility] [address] [place] [address] Dr. Christian Lebron ALT [Catalytic activity/Vol] 19 U/L Normal 9-52 [facility] Comment on above: Performed By: #### H OMCY #### [facility] [address] [address] [address] Christian Lebron Anion gap [Moles/Vol] 11.7 mmol/L Normal Th e [facility] Comment on above: Performed By: #### H OMCY #### [facility] [address] [address] [address] Christian Lebron AST [Catalytic activity/Vol] 16 U/L Normal 14-36 [facility] Comment on above: Performed By: #### H OMCY #### [facility] [address] [address] [address] Christian Lebron Bilirubin [Mass/Vol] 0.4 mg/dL Normal 0.2-1.3 [facility] Comment on above: Performed By: #### H OMCY #### [facility] [address] [address] [address] Christian Lebron Calcium [Mass/Vol] 9.3 mg/dL Normal 8.4-10.2 [facility] Comment on above: Performed By: #### H OMCY #### [facility] [address] [address] [address] Christian Lebron Chloride [Moles/Vol] 107 mmol/L Normal 98-107 [facility] Comment on above: Performed By: #### H OMCY #### [facility] [address] [address] [address] Christian Lebron CO2 [Moles/Vol] 26.0 mmol/L Normal 22.0-30.0 [facility] Comment on above: Performed By: #### H OMCY #### [facility] [address] [address] [address] Christian Lebron Creatinine [Mass/Vol] 1.63 mg/dL Critically high 0.52-1.04 [facility] Comment on above: Performed By: #### H OMCY #### [facility] [address] [address] [address] Christian Lebron EGFR-AF MALAWIAN 37 mL/min/1.73m2 Critically low >=60 [facility] Comment on above: Performed By: #### H OMCY #### [facility] [address] [address] [address] Christian Lebron EGFR-NON AF MALAWIAN 30 mL/min/1.73m2 Critically low >=60 [facility] Comment on above: Performed By: #### H OMCY #### [facility] [address] [address] [address] Christian Lebron Globulin (S) [Mass/Vol] 3.7 g/dL Normal [facility] Comment on above: Performed By: #### H OMCY #### [facility] [address] [address] [address] Christian Lebron Glucose [Mass/Vol] 96 mg/dL Normal 74-106 [facility] Comment on above: Performed By: #### H OMCY #### [facility] [address] [address] [address] Christian Lebron Potassium [Moles/Vol] 3.7 mmol/L Normal 3.4-5.0 [facility] Comment on above: Performed By: #### H OMCY #### [facility] [address] [address] [address] Christian Lebron Protein [Mass/Vol] 7.3 g/dL Normal 6.1-8.2 [facility] Comment on above: Performed By: #### H OMCY #### [facility] [address] [address] [address] Christian Lebron Sodium [Moles/Vol] 141 mmol/L Normal 137-145 [facility] Comment on above: Performed By: #### H OMCY #### [facility] [address] [address] [address] Christian Lebron Urea nitrogen [Mass/Vol] 31.0 mg/dL Critically high 7.0-17.0 [facility] Comment on above: Performed By: #### H OMCY #### [facility] [address] [address] [address] Christian Lebron Urea nitrogen/Creatinine [Mass ratio] 19.0 mg/mg Normal [facility] Comment on above: Performed By: #### H OMCY #### [facility] [address] [place] [address] Dr. Christian Lebron PROTIMEon 01-31-2021 INR Coag (PPP) [Relative time] {INR} Normal [facility] Comment on above: Performed By: #### H OMCY #### [facility] [address] [place] [address] Dr. Christian Lebron INR GUIDELINES SEE BELOW Normal [facility] Comment on above: Result Comment: EVER RED INR: 2.0 - 3.0 CONDITIONS NOT LISTED BELOW 2.5 - 3.5 FOR PROSTHETIC HEART VALVE REPLACEMENT 2.5 - 3.5 RECURRENT THROMBOSIS Performed By: #### H OMCY #### [facility] [address] [place] [address] Dr. Christian Lebron PT Coag (PPP) [Time] 10.0 s Normal 9.0-11.6 [facility] Comment on above: Performed By: #### H OMCY #### [facility] [address] [place] [address] Dr. Christian Lebron PTTon 01-31-2021 aPTT Coag (Bld) [Time] 28.2 s Normal 22.3-36.2 [facility] Comment on above: Performed By: #### H OMCY #### [facility] [address] [place] [address] Dr. Christian Lebron TROPONIN, HIGH SENSITIVITYon 01-31-2021 HSTROP 15.5 pg/mL Normal 4.0-35.5 [facility] Comment on above: Result Comment: CUT- OFF POINTS HAVE BEEN ESTABLISHED BASED ON THE FOURTH UNIVERSAL DEFINITIONS OF MYOCARDIAL INFARCTION. THE UPPER REFERENCE LIMIT (URL) OF TROPONIN, DEFINED THE 99TH PERCENTILE OF cTnI DISTRIBUTION IN A REFERENCE POPULATION, HAS BEEN CONFIRMED THE DECISION THRESHOLD FOR MD DIAGNOSIS. Performed By: #### H OMCY #### [facility] [address] [place] [address] Dr. Christian Lebron TSHon 01-31-2021 TSH 3.025 uIU/mL Normal 0.470-4.68 0 [facility] Comment on above: Performed By: #### H OMCY #### [facility] [address] [place], [place] [address] Dr. Christian Lebron TSH RANGE SEE BELOW Normal [facility] Comment on above: Result Comment: <0.3 4 UIU/ml HYPERTHYROID 0.34-5.60 UIU/ml EUTHYROID >5.60 UIU/ml HYPOTHYROID Performed By: #### H OMCY #### [facility] [address] [address] [address] Christian Lebron Vital Signs Date Time Vital Sign Value Performing Clinician Facility 03-17-2024 11:21-0400 Body height 167.6 cm Abdulaziz Alvarez MD Work Phone: [facility] 03-17-2024 11:21-0400 Diastolic blood pressure 52 mm[Hg] Abdulaziz Alvarez MD Work Phone: [facility] 03-17-2024 11:21-0400 Heart rate 79 /min Abdulaziz Alvarez MD Work Phone: [facility] 03-17-2024 11:21-0400 Systolic blood pressure 130 mm[Hg] Abdulaziz Alvarez MD Work Phone: [facility] 11-14-2023 17:04-0500 Body height 162.6 cm Ismael Aquino DPM Work Phone: [facility] 11-14-2023 17:04-0500 Body mass index (BMI) [Ratio] 29.52 kg/m2 Ismael Aquino DPM Work Phone: [facility] 11-14-2023 17:04-0500 Body weight 78.02 kg Ismael Aquino DPM Work Phone: [facility] 11-14-2023 17:04-0500 Diastolic blood pressure 80 mm[Hg] Ismael Aquino DPM Work Phone: [facility] 11-14-2023 17:04-0500 Heart rate 77 /min Ismael Aquino DPM Work Phone: [facility] 11-14-2023 17:04-0500 Systolic blood pressure 123 mm[Hg] Ismael Aquino [facility] Work Phone: [facility] 09-26-2023 12:00-0500 Body height 167.64 cm Sergio Escudero Other [employer] Other 09-26-2023 12:00-0500 Body mass index (BMI) [Ratio] 25.01 kg/m2 Sergio Escudreo Other [employer] Other 09-26-2023 12:00-0500 Body temperature 96.1 [degF] Sergio Escudero Other [employer] Other 09-26-2023 12:00-0500 Body weight 70.31 kg Sergio Escudero Other [employer] Other 09-26-2023 12:00-0500 Diastolic blood pressure 62 mm[Hg] Sergio Escudero Other [employer] Other 09-26-2023 12:00-0500 SaO2% (BldA) [Mass fraction] 99 % Sergio Escudero Other [employer] Other 09-26-2023 12:00-0500 Systolic blood pressure 120 mm[Hg] Sergio Escudero Other [employer] Other 03-20-2023 11:30-0400 Body height 167.64 cm Raysa Robins Other [employer] Other 03-20-2023 11:30-0400 Body mass index (BMI) [Ratio] 25.01 kg/m2 Raysa Robins Other [employer] Other 03-20-2023 11:30-0400 Body temperature 97.8 [degF] Raysa Robins Other [employer] Other 03-20-2023 11:30-0400 Body weight 70.31 kg Raysa Robins Other [employer] Other 03-20-2023 11:30-0400 Diastolic blood pressure 86 mm[Hg] Raysa Robins Other [employer] Other 03-20-2023 11:30-0400 SaO2% (BldA) [Mass fraction] 99 % Raysa Robins Other [employer] Other 03-20-2023 11:30-0400 Systolic blood pressure 122 mm[Hg] Raysa Robins Other [place] [employer] Other 09-21-2022 12:15-0500 Body height 167.64 cm Abdulaziz Alvarez MD Work Phone: [facility] [employer] 250 DO Work Phone: 09-21-2022 12:15-0500 Body mass index (BMI) [Ratio] 24.05 kg/m2 Abdulaziz Alvarez MD Work Phone: [facility] 250 DO Work Phone: 09-21-2022 12:15-0500 Body surface area Derived from formula 1.76 m2 Abdulaziz Alvarez MD Work Phone: [facility] 250 DO Work Phone: 09-21-2022 12:15-0500 Body weight 67.59 kg Abdulaziz Alvarez MD Work Phone: [facility] 250 DO Work Phone: 09-21-2022 12:15-0500 Diastolic blood pressure 78 mm[Hg] Abdulaizz Alvarez MD Work Phone: [facility] 250 DO Work Phone: 09-21-2022 12:15-0500 Heart rate 84 /min Abdulaziz Alvarez MD Work Phone: [facility] 250 DO Work Phone: 09-21-2022 12:15-0500 Systolic blood pressure 126 mm[Hg] Abdulaziz Alvarez MD Work Phone: [facility] 250 DO Work Phone: 09-12-2022 11:45-0500 Body height 167.64 cm Sergio Escudero Other [employer] Other 09-12-2022 11:45-0500 Body mass index (BMI) [Ratio] 27.44 kg/m2 Sergio Escudero Other [employer] Other 09-12-2022 11:45-0500 Body temperature 97.8 [degF] Sergio Escudero Other [employer] Other 09-12-2022 11:45-0500 Body weight 77.11 kg Sergio Escudero Other [employer] Other 09-12-2022 11:45-0500 Diastolic blood pressure 68 mm[Hg] Sergio Escudero Other [employer] Other 09-12-2022 11:45-0500 SaO2% (BldA) [Mass fraction] 98 % Sergio Escudero Other [employer] Other 09-12-2022 11:45-0500 Systolic blood pressure 116 mm[Hg] Sergio Escudero Other [facility] [employer] Other 08-14-2022 12:47-0500 Diastolic blood pressure 71 mm[Hg] DO Edward Bernstein Work Phone: [facility] 08-14-2022 12:47-0500 Systolic blood pressure 177 mm[Hg] DO Edward Bernstein Work Phone: [facility] 08-14-2022 12:00-0500 Body temperature 98.3 [degF] DO Edward Bernstein Work Phone: [facility] 08-14-2022 12:00-0500 Heart rate 79 /min DO Edward Bernstein Work Phone: [facility] 08-14-2022 12:00-0500 Respiratory rate 16 /min DO Edward Bernstein Work Phone: [facility] 08-14-2022 12:00-0500 SaO2% (BldA) [Mass fraction] 98 % DO Edward Bernstein Work Phone: [facility] 08-14-2022 04:50-0500 Body weight 66.6 kg DO Edward Bernstein Work Phone: [facility] 08-13-2022 20:45-0500 Body temperature 97.8 [degF] DO Edward Bernstein Work Phone: [facility] 08-13-2022 20:45-0500 Diastolic blood pressure 68 mm[Hg] DO Edward Bernstein Work Phone: [facility] 08-13-2022 20:45-0500 Heart rate 80 /min DO Edward Bernstein Work Phone: [facility] 08-13-2022 20:45-0500 Respiratory rate 20 /min DO Edward Bernstein Work Phone: [facility] 08-13-2022 20:45-0500 SaO2% (BldA) [Mass fraction] 99 % DO Edward Bernstein Work Phone: [facility] 08-13-2022 20:45-0500 Systolic blood pressure 188 mm[Hg] DO Edward Bernstein Work Phone: [facility] 08-13-2022 11:50-0500 Body height 167.64 cm DO Edward Bernstein Work Phone: [facility] 08-13-2022 06:00-0500 Body weight 68.8 kg DO Edward Bernstein Work Phone: [facility] Encounters Encounter Date Encounter Type Care Provider Facility Start: 04-24-2024 End: 04-24-[address] [facility] Work Phone: Start: 04-24-2024 End: 04-24-2024 Departed Referred DO Adin Evelyn Work Phone: [facility] Start: 04-01-2024 End: 04-01-2024 ambulatory KALI Shruthi MAHARAJ Not Available Start: 03-23-2024 End: 03-23-2024 ambulatory ADIN RIVAS Not Available Start: 03-17-2024 End: 03-17-2024 ambulatory [facility] Start: 03-17-2024 End: 03-17-2024 Encounter for other preprocedural examination [facility] Start: 03-17-2024 End: 03-17-2024 Office outpatient visit 25 minutes Abdulaziz Alvarez MD Work Phone: [facility] Comment on above: Pre-op evaluation (P rimary Dx); Primary hypertension; Hyperlipidemia, unspecified hyperlipidemia type; Stenosis of carotid artery, unspecified laterality; Former smoker; senior living resident; History of syncope Start: 03-17-2024 End: 03-17-2024 Preprocedural examination done Abdulaziz Alvarez MD Work Phone: [facility] Work Phone: Start: 03-13-2024 End: [...] outpatient vi sit 15 minutes Sergio Escudero [facility] Surgery Start: 09-26-2023 End: 09-26-2023 Patient encounter procedure II Kali Maharaj Work Phone: [facility] Start: 09-26-2023 End: 09-26-2023 ambulatory II Kali Maharaj Work Phone: [facility] [employer] Other Start: 03-20-2023 End: 03-20-2023 Patient encounter procedure Raysa Robins [facility] Vascular Surgery Start: 03-20-2023 End: 03-20-2023 ambulatory II Kali Maharaj Work Phone: [facility] [employer] Other Start: 03-13-2023 ambulatory Abdulaziz Alvarez Facility : Start: 11-10-2022 Chart Update Abdulaziz Alvarez MD Work Phone: [facility] 250 DO Work Phone: Start: 10-30-2022 Telephone encounter Abdulaziz day MD Work Phone: [facility] 600 DO Work Phone: Start: 10-22-2022 Patient encounter procedure Abdulaziz Alvarez MD Work Phone: [facility] 250 DO Work Phone: Start: 09-21-2022 ambulatory Abdulaziz Alvarez Facility :[id number] Start: 09-21-2022 Office outpatient vi sit 25 minutes Abdulaziz Alvarez MD Work Phone: [facility] 250 DO Work Phone: Start: 09-18-2022 Chart Update Abdulaziz Alvarez MD Work Phone: [facility] 250 DO Work Phone: Start: 09-14-[address] Kali Maharaj II Facility:[id number] Start: 09-12-2022 End: 09-12-2022 ambulatory Sergio Escudero Other [facility] [employer] Other Start: 09-12-2022 Office outpatient vi sit 15 minutes Sergio Escudero [facility] Vascular Surgery Start: 08-14-2022 ambulatory Abdulaziz Alvarez Facility :[id number] Start: 08-14-2022 Patient encounter procedure DO Edward Bernstein Work Phone: [facility] Start: 08-13-2022 End: 08-13-2022 ambulatory DO Edward Bernstein Work Phone: [facility] Work Phone: Start: 08-13-2022 End: 08-13-2022 Patient encounter procedure DO Edward Bernstein Work Phone: [facility] Start: 08-12-2022 ambulatory Abdulaziz Alvarez Facility :[id number] Start: 08-11-2022 ambulatory Abdulaziz Alvarez Facility :[id number] Start: 08-10-2022 ambulatory Abdulaziz Alvarez Facility :[id number] Start: 08-10-2022 End: 08-14-2022 Evaluation and management of inpatient DO Edward Bernstein Work Phone: [facility] [place] [facility] Start: 12-26-2021 End: 12-26-2021 ambulatory Jhonatan Oakes Other [facility] [employer] Other Start: 12-26-2021 Telephone encounter Jhonatan Oakes [facility] Vascular Surgery Start: 2021 End: 08-24-2021 ambulatory YULIA MCCRAY Facility:H1 Start: 07-10-2021 End: 07-11-[address] KALI MAHARAJ Facility:[facility]1 Start: 07-03-[address] KALI MAHARAJ Facilit y:H1 Start: 02-08-2021 End: 03-08-[address] KALI MAHARAJ Facility:[facility]1 Start: 02-01-2021 End: 02-02-2021 ambulatory LULU FRIEDMAN Facility:[facility]1 Start: 01-31-2021 End: 02-01-2021 ambulatory UNKNOWN PROVIDER [facility] Start: 12-05-[address] MAX CARBONE [...] procedure 03/17/2025 11:00 AM EDT [facility] [address] [address] [place] [address] Abdulaziz Alvarez MD 703 [facility] 2, [address] [place] [address] [facility] Start: 02-17-2024 End: 02-17-2024 Patient encounter procedure 02/17/2024 1:15 PM EDT Office Visit [facility] [address] [place] [address] Kali Maharaj MD [address] [place] [address] [facility] Start: 01-23-2024 End: 01-23-2024 Patient encounter procedure 01/23/2024 4:10 PM EDT Procedure Visit [facility] [address] [place] [address] Ismael Aquino, DPM 3006 [facility] [address] [place] [address] [facility] Start: 12-10-2023 End: 12-10-2023 Patient encounter procedure 12/10/2023 2:00 PM EST Office Visit [facility] [address] [place] [address] Yulia Mccray MD [address] [facility] 111 [place] [address] [facility] Start: 11-21-2023 Medicare Annual Wellness (AWV) Medicare Annual Wellness (AWV) [facility] Start: 11-14-2023 End: 11-14-2023 Patient encounter procedure 11/14/2023 4:50 PM EST Procedure Visit [facility] 112 [facility] 120 [place] [address] Ismael Aquino, DPM [address] [address] [facility] Start: 11-11-2023 End: 11-11-2023 Patient encounter procedure 11/11/2023 1:50 PM EST Procedure Visit [facility] 3006 [place] [address] Ismael Aquino DPM [address] [address] [facility] Start: 08-10-2023 Echocardiography Echocardiogram [facility] Start: 06-07-2023 COVID-19 Vaccine ( season) COVID-19 Vaccine ( season) [facility] Start: 03-20-2023 Doppler ultrasonography of bilateral carotid arteries US carotid doppler BI [facility] Start: 03-20-2023 US.doppler Carotid arteries - bilateral [facility] Start: 03-13-2023 FUV, Provider: Abdulaziz Alvarez, Status: Pen, Time: 11:50 AM FUV, Provider: Abdulaziz Alvarez, Status: Pen, Time: 11:50 AM [facility] 250 DO Work Phone: Start: 09-21-2022 FUV, Provider: Abdulaziz Alvarez, Status: Pen, Time: 11:50 AM FUV, Provider: Abdulaziz Alvarez, Status: Pen, Time: 11:50 AM [facility] 250 DO Work Phone: Start: 08-14-2022 [facility] Start: 08-13-2022 [facility] Start: 08-12-2022 Referral to vascular surgeon [facility] Start: 08-10-2022 Hospital admission [facility] Start: 08-10-2022 [facility] Start: 08-30-2020 Zoster Vaccines (2 of 2) Zoster Vaccines (2 of 2) [facility] Start: 2000 RSV patients and/or patients aged 60+ years (1 - 1-dose 60+ series) RSV patients and/or patients aged 60+ years (1 - 1-dose 60+ series) [facility] Start: 1962 DTaP/Tdap/Td Vaccines (1 - Tdap) DTaP/Tdap/Td Vaccines (1 - Tdap) [facility] Start: 1940 Creatinine measurement Creatinine Level [facility] Start: 1940 Lipid panel Lipid Panel [facility] Start: 1940 Medicare Annual Wellness Visit Medicare Annual Wellness Visit (AWV) [facility] Start: 1940 Potassium measurement Potassium Level [facility] Start: 1940 Thyroid stimulating hormone measurement TSH Level [facility] Patient Education Carotid Artery Disease Carotid Artery Disease (DC) [facility] Work Phone: Patient referral [facility] Work Phone: Immunizations Immunization Date Immunization Notes Care Provider Tito gaviria 08-12-2023 Influenza, High-dose Seasonal, Quadrivalent, Preservative Free Ismael Aquino DPM Work Phone: [facility] 09-21-2022 Moderna SARS-CoV-2 Booster Vaccination Ismael Aquino DPM Work Phone: [facility] 07-27-2022 Fluzone High-Dose Quadrivalent 0.7 ML Intramuscular Suspension Prefilled Syringe Abdulaziz Alvarez MD Work Phone: [facility] 05-08-2022 Moderna COVID-19 Vac cine 100 MCG/0.5ML Intramuscular Suspension Abdulaziz Alvarez MD Work Phone: [facility] 250 DO Work Phone: 08-07-2021 influenza, high dose seasonal, preservative-free Abdulaziz Alvarez MD Work Phone: [facility] 250 DO Work Phone: 08-04-2021 Moderna COVID-19 Vac cine 100 MCG/0.5ML Intramuscular Suspension Abdulaziz Alvarez MD Work Phone: [facility] 250 DO Work Phone: 11-23-2020 Moderna COVID-19 Vac cine 100 MCG/0.5ML Intramuscular Suspension Abdulaziz Alvarez MD Work Phone: [facility] 250 DO Work Phone: 10-21-2020 Moderna COVID-19 Vac cine 100 MCG/0.5ML Intramuscular Suspension Abdulaziz Alvarez MD Work Phone: [facility] 250 DO Work Phone: 07-05-2020 zoster vaccine recombinant Abdulaziz Alvarez MD Work Phone: [facility] 07-01-2020 influenza, high dose seasonal, preservative-free Abdulaziz Alvarez MD Work Phone: [facility] 250 DO Work Phone: 07-01-2020 Influenza, High-dose Seasonal, Quadrivalent, Preservative Free Ismael Aquino DPM Work Phone: [facility] 06-22-2019 Seasonal trivalent influenza vaccine, adjuvanted, preservative free Abdulaziz Alvarez MD Work Phone: [facility] 07-21-2018 influenza, high dose seasonal, preservative-free Abdulaziz Alvarez MD Work Phone: [facility] 250 DO Work Phone: 06-06-2018 influenza, high dose seasonal, preservative-free Abdulaziz Alvarez MD Work Phone: [facility] 06-18-2017 influenza, high dose seasonal, preservative-free Abdulaziz Alvarez MD Work Phone: [facility] 06-18-2017 pneumococcal polysaccharide vaccine, 23 valent Abdulaizz Alvarez MD Work Phone: [facility] 07-13-2016 influenza, high dose seasonal, preservative-free Abdulaziz Alvarez MD Work Phone: [facility] 07-23-2015 pneumococcal conjuga te vaccine, 13 valent Abdulaziz Alvarez MD Work Phone: [facility] 07-07-2015 influenza, injectabl e, quadrivalent, preservative free Ismael Aquino DPM Work Phone: [facility] 07-03-2013 influenza, seasonal, injectable, preservative free Ismael Aquino DPM Work Phone: [facility] 10-07-2010 pneumococcal polysaccharide vaccine, 23 valent Ismael Aquino DPM Work Phone: [facility] 07-20-2010 seasonal influenza, intradermal, preservative free Ismael Aquino DPM Work Phone: [facility] Payers Date Payer Category Payer Medicaid MEDICAID MEDICAI D [id number] 2023-Present [address] [place] [address] [id number] 2023 Medicaid [id number] 2017 Medicare [id number]. [id number] 1959 Private Health Insurance [id number] 1959 Self-pay 1940 Unknown [id number] 2.16.840.1.915897.3.579.2. 647 1940 Unknown [id number] 2.16.840.1.372978.3.579.2. 732 1940 Unknown [id number] 2.16.840.1.561150.3.579.2. 593 1940 Unknown [id number] 2.16.840.1.516282.3.579.2. 593 1940 Unknown [id number] 2.16.840.1.476829.3.579.2. 593 1940 Unknown [id number] 2.16.840.1.737081.3.579.2. 593 1940 Unknown [id number] 2.16.840.1.139446.3.579.2. 593 1940 Unknown [id number] 2.16.840.1.705537.3.579.2. 593 1940 Unknown [id number] 2.16.840.1.128881.3.579.2. 593 1940 Unknown [id number] 2.16.840.1.657296.3.579.2. 356 1940 Unknown [id number] 2.16.840.1.825437.3.579.2. 356 1940 Unknown [id number] 2.16.840.1.562307.3.579.2. 356 1940 Unknown [id number] 2.16.840.1.612514.3.579.2. 356 1940 Unknown [id number] 2.16.840.1.403225.3.579.2. 356 1940 Unknown [id number] 2.16.840.1.592617.3.579.2. 356 1940 Unknown [id number] 2.16.840.1.941899.3.579.2. 356 1940 Unknown [id number] 2.16.840.1.938797.3.579.2. 356 1940 Unknown [id number] 2.16.840.1.706258.3.579.2. 1244 1940 Unknown [id number] 2.16.840.1.033187.3.579.2. 1259 1940 Unknown [id number] 2.16.840.1.966086.3.579.2. 1259 1940 Unknown [id number] 2.16.840.1.145257.3.579.2. 1259 1940 Unknown [id number] 2.16.840.1.830304.3.579.2. 1259 1940 Unknown [id number] 2.16.840.1.363708.3.579.2. 1259 1940 Unknown [id number] 2.16.840.1.123247.3.579.2. 1259 1940 Unknown [id number] 2.16.840.1.943631.3.579.2. 1259 1940 Unknown [id number] 2.16.840.1.318655.3.579.2. 1259 Medicare Medicare [id number] Unknown Unknown Insurance No Card [id number] Unknown [id number] 2.16.840.1.400539.3.579.2. 531 Unknown [id number] 2.16.840.1.122128.3.579.2. 531 Social History Date Type Detail Facility Start: 10-16-2023 End: 03-17-2024 Sex Assigned At [facility] Start: 08-13-2022 End: 08-13-2022 Tobacco smoking status RIIS Smoker (finding) [facility] Start: 1940 Sex Assigned At Female F [facility] Start: 10-16-2023 End: 03-17-2024 Consumes alcohol occasionally Consumes alcohol occasionally -[facility] 250 DO Work Phone: Comment on above: coffee 1 cup daily; 1 pack per week; Start: 10-07-1987 [facility] Start: 10-07-1987 History of tobacco use Cigarette Smo ker [facility] History of tobacco use Passive smoker [facility] Start: 04-08-2023 End: 03-17-2024 Tobacco use and exposure Smokeless tobacco non-user [facility] Start: 10-16-2023 End: 11-14-2023 Alcohol intake Lifetime non-drinker (finding) [facility] Start: 1940 Sex Assigned At Not on file [facility] Start: 11-14-2023 Alcohol Comment caffeine intak e: 1-2 cups per day [facility] Start: 03-17-2024 [facility] Work Phone: Start: 03-17-2024 Alcoholic beverage intake Current drinker of alcohol (finding) [facility] Work Phone: Start: 03-17-2024 Alcohol Comment [facility] Work Phone: Start: 03-07-2024 End: 03-17-2024 Exposure to SARS-CoV-2 (event) Not sure [facility] Goals Date Patient Goal Desired Activity /State Functional Status Date Assessment Result Facility 08-14-2022 Functional status Patient at Baseline [facility] Work Phone: 08-10-2022 Functional status Patient at Baseline [facility] Work Phone: Mental Status Date Assessment Result Facility 08-14-2022 Cognitive function Cognitive Sta tus Patient at Baseline [facility] Work Phone: 08-10-2022 Cognitive function Cognitive Sta tus Patient at Baseline [facility] Work Phone: Clinical Notes 08-10-2022 to 03-17-2024 [...] artery, unspecified laterality 5. Former smoker 6. senior living resident Scribe Attestation By signing my name [...] discussion and plan. documented in this encounter [facility] Work Phone: 03-17-2024 Instructions Cait [...] year Same medications documented in this encounter [facility] Work Phone: 11-14-2023 History of [...] Ismael Aquino DPM documented in this encounter [facility] 09-26-2023 Evaluation note Encounter Date Diagnosis Assessment Notes Sep, Asymptomatic stenosis of right carotid artery (ICD-10 - I65.21) I recommend seeing this patient back in 1 year. I admonished her for smoking and offered her free resources to quit by the [facility]. She refused. There is no indication for any surgical intervention at this time. [facility] 06-14-2023 Evaluation note* Encounter Date Diagnosis [...] issues prior to her next scheduled appointment. [facility] 12-07-2022 Evaluation note* Encounter Date Diagnosis [...] for results in the next few weeks. [facility] 11-08-2022 Discharge summary Author Dee Kenney [facility] August 14, 2022 1:38pm Note Date/Time August 14, 2022 1 :13pm [facility] [address] [place] [address] Discharge Summary Signed Patient: Carley Quintanilla MR#: [id number] : 1940 Acct:[id number] Age/Sex: 81 / F Adm Date: 2 Loc: Room: [address] [place] [address]: Dee Kenney MD Copies to: [...] Regular Additional Instructions: You should have a Proficient 30 Day [employer] prior to discharge. Instructions: Carotid Artery Disease, [...] <Electronically signed by Dee Kenney MD> 08/14/22 4553 [facility] Work Phone: 1(635) 385-688011-08-2022 Progress note Author Sergio Escudero [facility] August 14, 2022 11:52am Note Date/Time August 14, 2022 1 0:02am [facility] [address] [place] [address] Vascular Surgery Progress Note Signed with Shashi Patient: Carley Quintanilla MR#: [id number] : 1940 Acct:[id number] Age/Sex: 81 / F Adm Date: 2 Loc: Room: 0G9573-1 Type: ADM IN Attending Dr: Dee Kenney [...] signed by Sergio Escudero MD> 08/14/[address] [facility] Work Phone: 1(556) 425-942211-07-2022 Progress note Author Dee Kenney [facility] August 13, 2022 12:59pm Note Date/Time August 13, 2022 1 2:44pm [facility] [address] [place] [address] Hospitalist Progress Note Signed Patient: Carley Quintanilla MR#: [id number] : 1940 Acct:[id number] Age/Sex: 81 / F Adm Date: 2 Loc: 4N Room: [address] [place] [address] Type: ADM IN Attending Dr: Dee Kenney [...] signed by Dee Kenney MD> 08/13/[address] [facility] Work Phone: 1(939) 428-480511-07-2022 Progress note Author Abdulaziz Alvarez [facility] August 13, 2022 11:03am Note Date/Time August 13, 2022 1 1:03am [facility] [address] [place] [address] Cardiology Progress Note Signed Patient: Carley Quintanilla MR#: [id number] : 1940 Acct:[id number] Age/Sex: 81 / F Adm Date: 2 Loc: Room: [address] [place] [address] Type: ADM IN Attending Dr: Dee Kenney [...] cessation education Documented By: Abdulaziz Alvarez MD, [facility] 2 1100 Signed By: <Electronically signed by MD XENA Alvarez> 08/13/[address] [facility] Work Phone: [phone]) 739-124411-07-2022 Consult note Author Sergio Escudero [facility] August 13, 2022 9:29am Note Date/Time August 13, 2022 8 :53am [facility] [address] [place] [address] Vascular Surgery Consult Note Signed Patient: Carley Quintanilla MR#: [id number] : 1940 Acct:[id number] Age/Sex: 81 / F Adm Date: 2 Loc: Room: [address] [place] [address] Type: ADM IN Attending Dr: Dee Kenney [...] signed by Sergio Escudero MD> 08/13/[address] [facility] Work Phone: [phone] 893-915411-06-2022 Progress note Author Dee Kenney [facility] August 12, 2022 4:23pm Note Date/Time August 12, 2022 4 :18pm [facility] [address] [place] [address] Hospitalist Progress Note Signed Patient: Carley Quintanilla MR#: [id number] : 1940 Acct:[id number] Age/Sex: 81 / F Adm Date: 2 Loc: 4N Room: 6Z9129-6 Type: ADM IN Attending Dr: Dee Kenney [...] Tablet PO 08/11/23 21:59 Not Given [facility] Heparin Sodium (Porcine) 5,000 unit 08/10/22 21:00 [...] 1,000 Ml IV 08/10/23 20:29 75 mls/hr .[id number] CARRI Administration Levothyroxine Sodium 75 mcg 08/11/22 [...] PT/OT. Documented By: Dee Kenney MD 08/12/22 3566 Signed By: <Electronically signed by Dee Kenney MD> 08/12/[address] [facility] Work Phone: 1(675) 267-240711-06-2022 Progress note Author Abdulaziz Alvarez [facility] August 12, 2022 10:01am Note Date/Time August 12, 2022 1 0:01am [facility] [address] [place] [address] Cardiology Progress Note Signed Patient: Carley Quintanilla MR#: [id number] : 1940 Acct:[id number] Age/Sex: 81 / F Adm Date: 2 Loc: Room: [address] [place] [address] Type: ADM IN Attending Dr: Dee Kenney [...] cessation education Documented By: Abdulaziz Alvarez MD, [facility] 2 5818 Signed By: <Electronically signed by MD XENA Alvarez> 08/12/[address] [facility] Work Phone: [phone]) 197-614611-05-2022 Progress note Author Dee Kenney [facility] August 11, 2022 2:19pm Note Date/Time August 11, 2022 2 :15pm [facility] [address] [place] [address] Hospitalist Progress Note Signed Patient: Carley Quintanilla MR#: [id number] : 1940 Acct:[id number] Age/Sex: 81 / F Adm Date: 2 Loc: Room: [address] [place] [address] Type: ADM IN Attending Dr: Dee Kenney [...] 1,000 Ml IV 08/10/23 20:29 75 mls/hr .[id number] CARRI Administration Levothyroxine Sodium 75 mcg 08/11/22 [...] signed by Dee Kenney MD> 08/11/[address] [facility] Work Phone: 1(471) 595-654311-05-2022 Consult note Author Abdulaziz Alvarez [facility] August 11, 2022 1:13pm Note Date/Time August 11, 2022 1 :09pm [facility] [address] [place] [address] Cardiology Consult Note Signed Patient: Carley Quintanilla MR#: [id number] : 1940 Acct:[id number] Age/Sex: 81 / F Adm Date: 2 Loc: Room: [address] [place] [address] Type: ADM IN Attending Dr: Dee Kenney MD Copies to: MD Abdulaziz Ortiz II, MD, [facility] Dee Kenney MD~ Cardiology HPI History [...] of hypertensionmanaged with Dr. Kali Maharaj in [facility]. She has been on diltiazem [...] Lymph # (Auto) 0.9 L (1.00-4.8) x10E3/uL Refugio # (Auto) 0.6 (0.0-0.8) x10E3/uL Eos # [...] 1000 ,000 ml @ 75 mls/hr IV .[id number] CARRI Rx#:[id number] Oral 480 / 480 960 / 960 [...] Tobacco use Documented By: Abdulaziz Alvarez MD, [facility] 2 1304 Signed By: <Electronically signed by MD XENA Alvarez> 08/11/22 1313 [facility] Work Phone: 1(302) 685-655711-04-2022 History and physical note Author Dee Kenney [facility] August 10, 2022 8:17pm Note Date/Time August 10, 2022 8 :03pm [facility] [address] [place], [place] [address] Hospitalist H&P Signed Patient: Carley Quintanilla MR#: [id number] : 1940 Acct:[id number] Age/Sex: 81 / F Adm Date: 2 Loc: Room: [address] [place] [address] Type: ADM IN Attending Dr: Dee Kenney [...] than mentioned in history of presenting illness [facility] Medical History (Updated 08/10/22 @ [...] % (Auto) 9.5 % (.) 08/10/22 17:15 Refugio % (Auto) 5.7 % (.) 08/10/22 17:15 Eos % (Auto) 0.7 % (.) 08/10/22 17:15 Baso % (Auto) 0.5 % (.) 08/10/22 17:15 Neut # (Auto) 8.3 x10E3/uL (1.8-7.7) H 08/10/22 17:15 Lymph # (Auto) 0.9 x10E3/uL (1.00-4.8) L 08/10/22 17:15 Refugio # (Auto) 0.6 x10E3/uL (0.0-0.8) 08/10/22 17:15 [...] pH 5.5 (5.0-9.0) 08/10/22 19:20 Ur Specific Pep 1.014 (1.001-1.030) 08/10/22 19:20 Urine Protein Negative [...] <Electronically signed by Dee Kenney MD> 08/10/222016 [facility] [employer] Work Phone: Evaluation noteNo InformationNort tribalX Other Evaluation note* Diagnosis Onset Date Resolution Status KRISTAN (acute kidney injury) [place] Bilateral carotid artery disease acute HTN (hypertension) acute Syncope acute Tobacco abuse acute [facility] [employer] Work Phone: Evaluation noteNo assessment information available [facility] Work Phone: Evaluation note* Diagnosis PVD (peripheral vascular disease) ([facility] Primary Unspecified peripheral vascular disease [...] of tobacco use, presenting hazards to health senior living resident History of syncope documented in this encounter [facility] Work Phone: History general Narrative - Reported* Type Description Date Medical History CAROTID STENOSIS BILATERAL Medical History hypertension Medical History hypercholesterolemia Medical History acid reflux Surgical History Foot Surgery Hospitalization History hypertension from [facility] Other History general Narrative - Reported* Type Description Date Medical History CAROTID STENOSIS BILATERAL Medical History hypertension Medical History hypercholesterolemia Medical History acid reflux Surgical History Foot Surgery Surgical History tonsillectomy Surgical History cataract Hospitalization History hypertension from [facility] Other Progress note Author Abdulaziz Alvarez [facility] August 14, 2022 5:26pm Note Date/Time August 14, 2022 5 :26pm [facility] [address] [place] [address] Cardiology Progress Note Signed Patient: Carley Quintanilla MR#: [id number] : 1940 Acct:[id number] Age/Sex: 81 / F Adm Date: 2 Loc: Room: [address] [place] [address] Type: DIS IN Attending Dr: Dee Kenney [...] cessation education Documented By: Abdulaziz Alvarez MD, [facility] 2 1725 Signed By: <Electronically signed by MD XENA Alvarez> 08/14/22 1726 [facility] Work Phone: Summary Purpose Family [...] Procedures ECG 12 Lead Abdulaziz Alvarez MD [address] [place] [address] 2, [place] [id number] Referral ID Status Reason Start Date Expiration Date V isits Requested Visits Authorized [id number] Authorized 03/17/2024 03/17/2025 1 1 Specialty Diagnoses / Procedures Referred By Michael armstrong Referred To Contact Cardiology Diagnoses Primary hypertension Procedures Follow Up In Cardiology Abdulaziz Alvarez MD 703 [facility] 2, [address] [address] Abdulaziz Alvarez MD [address] [place] [address] 2, [address] [place] [address] Referral ID Status Reason Start Date Expiration Date V isits Requested Visits Authorized [id number] Authorized 03/17/2024 03/17/2025 1 1 Additional Source Comments INFORMATION SOURCE (unrecogn ized section and content) DATE CREATED AUTHOR 09/15/2018 [facility] DATE CREATED AUTHOR AUTHOR'S ORGANIZ ATION 02/02/2021 [facility] [facility] DATE CREATED AUTHOR AUTHOR'S ORGANIZ ATION 08/30/2021 [facility] pital DATE CREATED AUTHOR AUTHOR'S ORGANIZ ATION 09/22/2021 [facility] dical Specialist DATE CREATED AUTHOR AUTHOR'S ORGANIZ ATION 09/28/2022 [facility] DATE CREATED AUTHOR AUTHOR'S ORGANIZ ATION 03/18/2023 [facility] DATE CREATED AUTHOR AUTHOR'S ORGANIZ ATION 03/18/2024 [facility] DATE CREATED AUTHOR AUTHOR'S ORGANIZ ATION 04/02/2024 [facility] dical Specialists EPIC DATE CREATED AUTHOR AUTHOR'S ORGANIZ ATION 04/29/2024 [facility] ysician Group REASON FOR VISIT (unrecogniz ed section and content) Reason Comments Toenail Care Reason Comments Follow-up Dr. Evelyn CAPPS last s een 09/2022 Specialty Diagnoses / Procedures Referred By Contac t Referred To Contact Diagnoses Pre-op evaluation Procedures ECG 12 Lead Abdulaziz Alvarez MD 703 [facility] 2, [address] [address] Referral ID Status Reason Start Date Expiration Date V isits Requested Visits Authorized [id number] Authorized 03/17/2024 03/17/2025 1 1 Care Teams [...] LPN Other Provider Active Kalina Gilbert , ASSEMBLER [employer] Other Provider Active Jhonatan Oakes MD Other Provider Active Raysa Robins , EQUIPMENT ENGINEER-C Other Provider Active Shelby Unger MD Other Provider Active Sergio Escudero MD Other Provider Active Team Status: Inactive Member Role Status Dates Kali Maharaj II MD Primary Care Provider Active Raysa Robins , EQUIPMENT ENGINEER-C Attending Provider Active Sports Information Director Relationship Specialty Start Date End Date Kali Maharaj MD [address] [place] [address] PCP - [employer] 12/05/22 Kali Maharaj MD [address] [place] [address] PCP - General Internal Medicine 04/10/23 Sarah Lozada, [facility] Manager [address] Family Medicine 10/30/23 Sports Information Director Relationship Specialty Start Date End Date Kali Maharaj MD [address] [place] [address] PCP - [employer] 12/05/22 Kali Maharaj MD [address] [place] [address] PCP - General Internal Medicine 04/10/23 Sarah Lozada, [facility] Manager Ct Family Medicine 10/30/23 Sports Information Director Relationship Specialty Start Date End Date Kali Maharaj MD [address] [place] [address] PCP - [employer] 12/05/22 Kali Maharaj MD [address] [place] [address] PCP - General Internal Medicine 04/10/23 Sarah Lozada [facility] Manager [address] Family Medicine 10/30/23 Sports Information Director Relationship Specialty Start Date End Date Kali Maharaj MD [address] [facility] [address] [place] [address] PCP - General Internal Medicine 03/17/24 Team [...] BE BASED ON THE PRIMARY CLINICAL RECORDS. [employer] provides no warranty or guarantee of the accuracy or completeness of information in this document.
[2024-05-13 09:50] LABS: Anion Gap 16.8; BUN Creatinine Ratio 36.4; Calcium 8.5 mg/dL (8.5-10.1); Carbon Dioxide 20.2 mmol/L (21.0-32.0); Chloride 108 mmol/L (98-107); Estimated GFR (African America 25 (>=60); Estimated GFR (Non-African Ame 20 (>=60); Glucose 72 mg/dL (74-106); Sodium 141 mmol/L (136-145)
== END 2024-05-13 02:02 | disposition home or self-care (01) ==
LOC: LAB 02:01
PROVIDERS: PCP Internal Medicine; Visit Provider Nurse Practitioner Family
DX: N17.9 Acute kidney failure, unspecified (principal); E63.9 Nutritional deficiency, unspecified
CPT/HCPCS: 36415; 80048